=== PATIENT | male | born 1935 | race Caucasian/White ===

== ENCOUNTER 2016-05-26 14:54 | Inpatient (IN) | payer OTHER ==
[~2016-05-26] VITALS: Ht 167.6 cm; Wt 79.3 kg
[~2016-05-26 14:54] MED LIST: ADV50050 INH; ALBU2.5V3 NEB; ALBU8.5H3 INH; ALEN70TA30 PO; AMLO5TAB4 PO; ASPI-664 PO; CLOP75TA4 PO; FER325 PO; FLUT16SP24 NASAL; FURO40TA4 PO; GABA300C16 PO; GUAI1TBM PO; HYD25 PO; METH-70 PO; MONT10TA24 PO; MULT-552 PO; ONDA4TAB95 PO; OXYC-183 PO; PANT40TA4 PO; SMV40T PO; TIOT18CA IH; TURM500C8 PO; UBID100C24 PO; UDROBDM PO; VALS160T20 PO; [UNRECOGNIZED DRUG - CODE] PO
[2016-05-26] MEDS ORDERED: IPRATROPIUM (NEB) 0.5 MG/2.5 ML AMP NEB STA (15:09)
[2016-05-26] MEDS ORDERED: SOD CHLORIDE 0.9% 500 ML IV STA (15:09)
[2016-05-26] MEDS ORDERED: METHYLPREDNISOLONE 125 MG INJ IV STA (15:09)
[2016-05-26] MEDS ORDERED: ALBUTEROL 0.5% (NEB) 2.5 MG/0.5 ML AMP NEB STA (15:09)
[2016-05-26] MEDS ORDERED: morphine 2 MG INJ IV ONE (15:30)
[2016-05-26] MEDS ORDERED: ONDANSETRON 4 MG INJ IV ONE (15:30)
--- NOTE | 2016-05-26 15:33 | RADRPT ---
PROCEDURE: XR Chest. CLINICAL INDICATION: Shortness of breath, asthma TECHNIQUE: Single frontal view of the chest was obtained COMPARISON: 05/03/2016 FINDINGS: The heart is enlarged. The thoracic aorta is calcified. There are chronic interstitial changes throughout the lungs. There is mild pulmonary vascular conge stion. There are mild bibasilar linear atelectatic changes. There is no pleural effusion or pneumothorax. RPTAT: AA IMPRESSION: Mild cardiomegaly. Mild pulmonary vascular congestion. Chronic interstitial changes throughout the lungs. Mild bibasilar atelectatic changes. Calcified aorta consistent with atherosclerotic disease. .Roger Singh MD, MD Date Time Electronically viewed and signed by .Roger Singh MD, on 05/26/2016 15:33 .S/
--- NOTE | 2016-05-26 16:05 | ERA ---
ER Documentation Chief Complaint Date/Time DATE: 05/26/16 TIME: 16:00 Chief Complaint HPI 80-year-old male history of COPD who presents with right flank pain. The patient had a mechanical fall several days ago. He was seen in the emergency department and had a negative CT scan grade however, the patient is describing persistent right flank pain, difficulty breathing. He now has cough that is mildly productive. He denies any fevers or chills. He states this feels like his COPD. He denies any hematuria, no headache or chest pain. He denies hitting his head or neck during the fall. ROS All systems reviewed and are negative except as per history of present illness. Medications Home Meds Active Scripts Methocarbamol* (Robaxin*) 750 Mg Tablet, 750 MG PO TID, #20 TAB Prov:JEM MORRIS DO 03/09/16 Reported Medications Albuterol Sulfate* (Proair HFA*) 8.5 Gm Hfa.aer.ad, 2 PUFF INH Q4H Y for WHEEZING AND SOB, #1 INHALER 05/23/16 Ondansetron Hcl* (Ondansetron Hcl*) 4 Mg Tablet, 4 MG PO Q6H Y for NAUSEA, TAB 05/23/16 Pantoprazole* (Pantoprazole*) 40 Mg Tablet.dr, 40 MG PO DAILY, TAB 05/23/16 Guaifenesin/Dextromethorphan (Mucinex Dm ER 1,200-60 mg Tab) 1 Each Tbmp.12hr, 1 EACH PO BID, TAB 05/23/16 Ferrous Sulfate* (Ferrous Sulfate*) 325 Mg Tabec, 325 MG PO BID, TAB 05/23/16 Guaifenesin-Dextromethorphan* (Robitussin* DM) 100MG/10MG/5ML Syrup, 10 ML PO Q4H Y for COUGH, ML 05/23/16 Oxycodone Hcl-Acetaminophen* (Oxycodone Hcl-Acetaminophen*) 10-325 Mg Tablet, 1 TAB PO Q6 Y for PAIN, TAB 12/25/15 Gabapentin* (Gabapentin*) 300 Mg Capsule, 300 MG PO TID, #90 CAP 12/25/15 Albuterol Sulfate* (Albuterol Sulfate* Neb) 0.083%-3 Ml Neb, 2.5 MG NEB BID Y for WHEEZING AND SOB, EA 04/11/15 Tiotropium [place]* (Spiriva*) 18 Mcg Cap.w.dev, 1 INH IH DAILY, EA 02/02/15 Furosemide* (Furosemide*) 40 Mg Tablet, 40 MG PO DAILY, TAB ONLY TO BE TAKEN WITH POTASSIUM WITH LEG SWELL 02/02/15 Hydrochlorothiazide* (Hydrochlorothiazide*) 25 Mg Tab, 25 MG PO DAILY, TAB 02/02/15 Valsartan* (Diovan*) 160 Mg Tablet, 160 MG PO DAILY, TAB 02/02/15 Amlodipine Besylate* (Norvasc*) 5 Mg Tablet, 5 MG PO DAILY, TAB 02/02/15 Clopidogrel Bisulfate* (Clopidogrel Bisulfate*) 75 Mg Tablet, 75 MG PO DAILY, TAB 11/04/14 Montelukast Sodium* (Montelukast Sodium*) 10 Mg Tablet, 10 MG PO HS, TAB 11/04/14 Turmeric Root Extract (TURMERIC) 500 Mg Capsule, 500 MG PO DAILY 09/06/14 Ubidecarenone (Coq-10) 100 Mg Capsule, 100 MG PO DAILY 09/06/14 Simvastatin (Simvastatin) 40 Mg Tablet, 40 MG PO HS, TAB 09/06/14 Salmeterol Xinaf-Fluticasone* (Advair*) 500/50 Diskus Inhaler, 1 INH INH BID, INH 09/06/14 [place]-3 Fatty Acids (Fish Oil Concentrate) 1 Cap Capsule, 1 CAP PO DAILY 09/06/14 Multivitamins* (Once Daily*) 1 Tab Tablet, 1 TAB PO DAILY, TAB 09/06/14 Fluticasone Propionate* (Flonase* Nasal) 50 Mcg/[place] - 16 Gm [place].susp, 1 SPRAY NASAL BID, SPRAY (TO EACH NOSTRIL) 09/06/14 Aspirin (Low Dose Aspirin) 81 Mg Tablet.dr, 81 MG PO DAILY 09/06/14 Alendronate Sodium* (Fosamax*) 70 Mg Tablet, 70 MG PO ON WEDNESDAY, TAB 09/06/14 Discontinued Reported Medications Cholecalciferol* (Vitamin D3*) 1,000 Unit Tablet, 1000 UNIT PO DAILY, TAB 02/02/15 Albuterol Sulfate* (Albuterol Sulfate* HFA) 8.5 Gm Hfa.aer.ad, 2 PUFF IH Q6 Y for SHORTNESS OF BREATH, EA 09/06/14 Discontinued Scripts Oxycodone HCl/Acetaminophen (Percocet 5-325 mg Tablet) 1 Each Tablet, 1 EACH PO Q6, #14 TAB Prov:JEM MORRIS DO 03/09/16 Prednisone (Prednisone) 20 Mg Tab, 40 MG PO DAILY for 10 Days, TAB tapering dose see prescription written Prov:RICHIE SWEET 12/26/15 Levofloxacin* (Levaquin*) 500 Mg Tablet, 500 MG PO DAILY for 8 Days, TAB Prov:RICHIE SWEET 12/26/15 Allergies Allergies: Coded Allergies: No Known Drug Allergies (Verified Allergy, Unknown, 05/26/16) PMhx/Soc History of Surgery: No Anesthesia Reaction: No Hx 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 Disorder: No Hx Respiratory Disorders: Yes (Asthma, COPD) Hx Cardiac Disorders: Yes (HTN, CHF) Hx Psychiatric Problems: No Hx Miscellaneous Medical Probl: Yes (Hep B) Hx Alcohol Use: No Hx Substance Use: No Hx Tobacco Use: No FmHx Family History: No diabetes Physical Exam Vitals Vital Signs Date Time Temp Pulse Resp B/P Pulse Ox O2 Delivery O2 Flow Rate FiO2 05/26/16 19:10 103 17 105/46 95 Nasal Cannula 2.0 05/26/16 16:26 111 26 100 Nasal Cannula 4.0 05/26/16 16:20 98.2 101 20 104/55 98 Room Air 05/26/16 16:12 Nasal Cannula 2 05/26/16 16:09 98.2 129 20 104/55 98 Physical Exam General: Well developed, well nourished, uncomfortable Head: Normocephalic, atraumatic. Eyes: Pupils equally reactive, EOM intact ENT: Moist mucous membranes Neck: Supple, no lymphadenopathy Respiratory: Rhonchi bilaterally with wheezing , along ribs slight tenderness noted 5 6 and 7 on the right without crepitus or deformity Cardiovascular: RRR, no murmurs, rubs, or gallops Abdominal: Soft, no peritonitis, reproducible soft tissue tenderness to the right upper quadrant : Deferred MSK: No edema, no unilateral swelling, 5/5 strength Neurologic: Alert and oriented, moving all extremities, normal speech, no focal weakness, no cerebellar signs Skin: No rash Psych: Normal mood Result Diagram: 05/26/16 1550 05/26/16 1550 Results 24 hrs Laboratory Tests Test 05/26/16 15:50 Activated Partial Thromboplast Time 42.3Sec Alanine Aminotransferase (ALT/SGPT) 37IU/L Albumin 3.9g/dl Albumin/Globulin Ratio 0.97 Alkaline Phosphatase 66IU/L Anion Gap 19 Aspartate Amino Transf (AST/SGOT) 42IU/L Basophils # 0.110^3/ul Basophils % 0.4% Blood Morphology Comment Blood Urea Nitrogen 23mg/dl Calcium Level 9.5mg/dl Carbon Dioxide Level 21mmol/L Chloride Level 103mmol/L Creatinine 1.08mg/dl Direct Bilirubin 0.00mg/dl Eosinophils # 0.310^3/ul Eosinophils % 2.1% Globulin 4.00g/dl Glucose Level 56mg/dl Hematocrit 29.6% Hemoglobin 9.8g/dl INR International Normalized Ratio 1.03 Indirect Bilirubin 0.2mg/dl Lactic Acid Level 1.0mmol/L Lymphocytes # 3.910^3/ul Lymphocytes % 27.2% Mean Corpuscular Hemoglobin 33.2pg Mean Corpuscular Hemoglobin Concent 33.0g/dl Mean Corpuscular Volume 100.5fl Mean Platelet Volume 7.7fl Monocytes # 1.110^3/ul Monocytes % 7.9% Neutrophils # 9.010^3/ul Neutrophils % 62.4% Nucleated Red Blood Cells # 0.010^3/ul Nucleated Red Blood Cells % 0.0/100WBC Platelet Count 98570^3/UL Potassium Level 5.3mmol/L Prothrombin Time 13.5Sec Prothrombin Time Ratio 1.1 Red Blood Count 2.9410^6/ul Red Cell Distribution Width 14.8% Sodium Level 138mmol/L Total Bilirubin 0.2mg/dl Total Protein 7.9g/dl Troponin I 0.226ng/ml White Blood Count 14.410^3/ul Current Medications Medications (Trade) Dose Ordered Sig/Gregg Route PRN Reason Start Time Stop Time Status Last Admin Dose Admin Sodium Chloride (NS) 500 ml @ 500 mls/hr Q1H STAT IV 05/26/16 15:09 05/26/16 16:08 DC 05/26/16 16:12 Albuterol (Proventil 0.5% (Neb)) 7.5 mg ONCE STAT NEB 05/26/16 15:09 05/26/16 15:13 DC 05/26/16 16:26 Ipratropium [place] (Atrovent 0.02% (Neb)) 0.5 mg ONCE STAT NEB 05/26/16 15:09 05/26/16 15:13 DC 05/26/16 16:26 Methylprednisolone Sodium Succinate (Solu-Medrol) 125 mg ONCE STAT IV 05/26/16 15:09 05/26/16 15:13 DC 05/26/16 16:12 Morphine Sulfate (morphine) 4 mg ONCE ONCE IV 05/26/16 15:30 05/26/16 15:31 DC 05/26/16 16:11 Ondansetron HCl (Zofran Inj) 4 mg ONCE ONCE IV 05/26/16 15:30 05/26/16 15:31 DC 05/26/16 16:11 Sodium Chloride 2310 ml 2,310 ml BOLUS OVER 2 HOURS STAT IV* 05/26/16 16:51 05/26/16 16:53 DC 05/26/16 17:53 Ceftriaxone Sodium 50 ml @ 100 mls/hr ONCE STAT IVPB 05/26/16 16:51 05/26/16 17:20 DC 05/26/16 17:00 Azithromycin (Zithromax 500mg/ NS (Pmx)) 250 ml @ 250 mls/hr ONCE STAT IV 05/26/16 16:51 05/26/16 17:50 DC 05/26/16 17:52 IV Flush 10 ml 10 ml STK-MED ONCE .ROUTE 05/26/16 17:53 05/26/16 17:54 DC 05/26/16 18:21 Sodium Chloride (NS) 100 ml @ ud STK-MED ONCE .ROUTE 05/26/16 17:53 05/26/16 17:54 DC 05/26/16 18:21 Iohexol (Omnipaque 300mg/ ml) 150 ml STK-MED ONCE .ROUTE 05/26/16 17:53 05/26/16 17:54 DC 05/26/16 18:21 Aspirin (Aspirin) 162 mg ONCE ONCE PO 05/26/16 19:30 05/26/16 19:31 Procedures/MDM EKG, MONITORS, & DIAGNOSTIC IMAGING: EKG: I reviewed and interpreted a 12-lead EKG. Rhythm: slight sinus tachycardia Ectopy: None Intervals: Left bundle branch block, old ST segments: No elevations or depressions T waves: No contiguous inversions Chest x-ray: I reviewed and interpreted a 1 view of the chest Mediastinum: No enlargement Cardiac silhouette: No cardiomegaly Airspace: Interstitial process bilaterally consistent with likely COPD Bones: No evidence of fracture CT chest abdomen and pelvis: IMPRESSION: Acute right posterior 10th through 12th rib fractures and possible acute right ninth rib fracture. No pneumothorax or pulmonary contusion. No pleural effusion. Chronic lung changes. Prior granulomatous disease. Old right rib fractures and multiple old spine compression fractures. No other definite acute fractures. RPTAT: HLBE LAB INTERPRETATION: Leukocytosis, anemia, troponin elevation MEDICAL DECISION MAKING: The patient had a mechanical fall. He has a right rib contusion. He had negative CT imaging with contrast 3 days ago. However, the patient has persistent pain and now shortness of breath. He has tenderness of the right upper quadrant of the abdomen. His shortness of breath is more likely related to COPD with exacerbation given his wheezing and history of COPD. He does have hypoxia and significant rhonchi on exam. I believe he would benefit from breathing treatments, steroids and likely antibiotics and inpatient hospitalization. There is some concern for possible superimposed pneumonia given that the patient likely is splinting secondary to rib contusions. The patient is also on Plavix. He is at risk for delayed bleed. Given the patient' s abdominal tenderness I cannot rule out liver injury. I believe a CT of the chest abdomen and pelvis would be reasonable to rule out blunt traumatic injury. I realize that the patient did have a CT with IV contrast several days ago however the patient is at significant risk for delayed bleed and appears to be significantly uncomfortable. I believe the benefits outweigh the risks of repeat contrast load at this time. Gentle fluid bolus will be provided. ER COURSE: The patient was given a breathing treatment, steroids. The patient had leukocytosis and tachycardia consistent with Sirs. No evidence of pneumonia but with COPD exacerbation the patient was given antibiotics. Lactic acid is normal. The patient received fluid resuscitation in the form of 30 cc/kg. Again, the patient does not have an infectious source. This is consistent with COPD with exacerbation not pneumonia. This is not consistent with sepsis. The patient has a slight troponin elevation likely related to demand ischemia. The patient's CT shows evidence of multiple rib fractures. The patient is high risk for pneumonia given his age. Inpatient hospitalization would be appropriate. Aspirin provided. Pain well controlled. Heart rate improved. I kept the patient and/or family informed of laboratory and diagnostic imaging results throughout the emergency room course. DISPOSITION PLAN: Telemetry admission for management of non-ST elevation myocardial infarction CONSULTATION: Accepting care team and consultations: I discussed the current laboratory data, diagnostic imaging and emergency care provided. Admitting team: Dr. Owens Admitting team indication: Insurance directed Departure Diagnosis: Primary Impression: COPD exacerbation Additional Impressions: Hypoxia Non-ST elevation myocardial infarction (NSTEMI) Multiple fractures of ribs, right side, initial encounter for closed fracture Condition: Stable BRANDY PATEL MD May 26, 2016 16:05
[2016-05-26 16:30] LABS: BASOPHIL # 0.1 10^3/ul (0.0-0.1); BASOPHILS % 0.4 % (0.0-2.0); EOSINOPHILS # 0.3 10^3/ul (0.0-0.5); EOSINOPHILS % 2.1 % (0.0-7.0); HEMATOCRIT 29.6 % (42.0-52.0); HEMOGLOBIN 9.8 g/dl (14.0-18.0); LYMPHOCYTES # 3.9 10^3/ul (0.8-2.9); LYMPHOCYTES % 27.2 % (15.0-51.0); MEAN CORPUSCULAR HEMOGLOBIN 33.2 pg (29.0-33.0); MEAN CORPUSCULAR VOLUME 100.5 fl (82.0-101.0); MEAN PLATELET VOLUME 7.7 fl (7.4-10.4); MONOCYTE # 1.1 10^3/ul (0.3-0.9); MONOCYTES % 7.9 % (0.0-11.0); NEUTROPHILS % 62.4 % (39.0-77.0); PLATELET COUNT 288 10^3/UL (140-440); RED BLOOD COUNT 2.94 10^6/ul (4.70-6.10); RED CELL DISTRIBUTION WIDTH 14.8 % (11.5-14.5); UNCORRECTED WBC 14.4 10^3/ul (4.8-10.8); WHITE BLOOD COUNT 14.4 10^3/ul (4.8-10.8)
[2016-05-26 16:34] LABS: INR 1.03; PROTIME 13.5 Sec (12.2-14.2); PT RATIO 1.1
[2016-05-26 16:35] LABS: ALBUMIN 3.9 g/dl (3.3-4.9); PARTIAL THROMBOPLASTIN TIME 42.3 Sec (25.0-35.0)
[2016-05-26 16:37] LABS: CONDITION 1; CREATININE 1.08 mg/dl (0.61-1.24); LH ANALYZER COMMENTS 1
[2016-05-26 16:38] LABS: ALBUMIN/GLOBULIN RATIO 0.97; BILIRUBIN,INDIRECT 0.2 mg/dl (0-1.1); BILIRUBIN,TOTAL 0.2 mg/dl (0.2-1.3); TOTAL PROTEIN 7.9 g/dl (6.1-8.1)
[2016-05-26 16:39] LABS: CALCIUM 9.5 mg/dl (8.4-10.2)
[2016-05-26 16:50] LABS: POTASSIUM 5.3 mmol/L (3.5-5.1); TROPONIN-I 0.226 ng/ml (0.00-0.12)
[2016-05-26] MEDS ORDERED: AZITHROMYCIN 500MG/NS (PMX) 250 ML IV STA (16:51)
[2016-05-26] MEDS ORDERED: SODIUM CHLORIDE 0.9% 1L BAG IV* STA (16:51)
[2016-05-26] MEDS ORDERED: CEFTRIAXONE 1 GM/50 ML (PMX) 50 ML IVPB STA (16:51)
[2016-05-26] MEDS ORDERED: SOD CHLORIDE 0.9% 100 ML ONE (17:53)
[2016-05-26] MEDS ORDERED: IOHEXOL 300MG/ML 150 ML BTL ONE (17:53)
--- NOTE | 2016-05-26 18:52 | RADRPT ---
PROCEDURE: CT of the chest, abdomen, and pelvis with contrast CLINICAL INDICATION: Trauma TECHNIQUE: Spiral CT images through the chest, abdomen and pelvis without the administration of or al and during administration of 100 cc of Isovue 300 contrast material. Multiplanar reconstructions. The total exam CTDI equals 12.1 mGy and the total exam DLP equals 829.04 mGy-cm. COMPARISON: 04/11/2015 FINDINGS: CT chest: Again seen are chronic peripheral fibrotic changes and bilateral bronchiectasis, most antwan re at the lung bases. No pneumothorax or pleural effusion is seen. Aortic and coronary artery calci fication is seen. Multiple sub centimeter hilar and mediastinal nodes are seen. There are also lakes[place] cified hilar nodes bilaterally. There is no CT evidence for aortic injury. CT abdomen and pelvis: The aorta is slightly ectatic and tortuous. Aortic vascular calcifications are present. Innumerable calcified hepatic and splenic granulomas are seen. The gallbladder is distended. The a drenals and kidneys are unremarkable appearance. The pancreas is atrophic. The appendix is normal in appearance. The prostate is slightly enlarged. The bladder is unremarkable in appearance. Smal l bilateral renal cortical cysts. No adenopathy or ascites is seen. There is no evidence for bowel obstruction, free air, or abscess. There is mild degenerative change of the spine. There are degener ative changes of the shoulders and hips. There are fractures of the right posterior 10th through 12 th ribs and possibly also the right ninth rib. Old fractures of multiple upper right posterior ribs are seen. Multiple thoracic and lumbar compression fractures are seen. Cement from prior vertebro plasty is seen at T6, T11, and T12. The compression fractures do not appear significantly changed c ompared with prior studies from 05/23/[address] from 04/11/2015. IMPRESSION: Acute right posterior 10th through 12th rib fractures and possible acute right ninth rib fracture. No pneumothorax or pulmonary contusion. No pleural effusion. Chronic lung changes. Prior granulom atous disease. Old right rib fractures and multiple old spine compression fractures. No other defi nite acute fractures. RPTAT: HLBE Mini Hart, Physician Date Time Electronically viewed and signed by Mini Hart, Physician on 05/26/2016 18:51 LE/
[2016-05-26] MEDS ORDERED: ONDANSETRON 4 MG INJ IV PRN (19:30)
[2016-05-26] MEDS ORDERED: ACETAMINOPHEN 325 MG TAB PO PRN ×2 (19:30→21:30)
[2016-05-26] MEDS ORDERED: ASPIRIN 81 MG TAB PO ONE (19:30)
[2016-05-26 20:30] VITALS: TEMP 99.4
[2016-05-26] MEDS ORDERED: OXYCODONE/ACETAMINOPHEN (10/325) TAB PO PRN (21:30)
[2016-05-26] MEDS: ALBUTEROL/IPRATROPIUM (NEB) 3 ML AMP HHN SCH (21:30)
[2016-05-26] MEDS ORDERED: morphine 4 MG/ML VIAL IV PRN (21:30)
[2016-05-26] MEDS ORDERED: METHYLPREDNISOLONE (10 MG/ML) IV SYG IV SCH (21:30)
[2016-05-26] MEDS ORDERED: METHYLPREDNISOLONE 125 MG INJ IV SCH (22:00)
[2016-05-27] VITALS (9 sets, daily range): BP systolic 97–123; BP diastolic 51–57; PULSE 58–91; RESP 18–20; Ht 167.6 cm; Wt 79.3 kg
--- NOTE | 2016-05-27 00:29 | QN ---
Documentation Comment H&P dict a/p 1. cards: elevated troponin, appears to be ruling in for nstemi, start lovenox, cont plavix and asa, begin metop, hold losartan in light of relative hypotension cont statin 2. pulm: known copd, cont steroids and nebs 3. ALLEY ARITA MD May 27, 2016 00:29
[2016-05-27] MEDS: METOPROLOL 25 MG TAB PO SCH ×2 (00:30→09:23)
[2016-05-27] MEDS ORDERED: ATORVASTATIN 20 MG TAB PO SCH ×2 (00:30→21:00)
[2016-05-27] MEDS ORDERED: ENOXAPARIN 100 MG/ML SYG SC SCH (00:30)
[2016-05-27] MEDS: ATORVASTATIN 80 MG TAB PO SCH ×2 (01:13→20:54)
[2016-05-27] MEDS: ALBUTEROL/IPRATROPIUM (NEB) 3 ML AMP HHN SCH ×5 (02:33→20:52)
--- NOTE | 2016-05-27 03:14 | HP ---
DATE OF ADMISSION: 05/26/2016 CHIEF COMPLAINT: Generalized weakness. HISTORY OF PRESENT ILLNESS: Mr. Roach presents to the emergency room at [facility] with gen eralized weakness. He states that occurred to him approximately 3 o'clock this afternoon. He state s that this is somewhat came out of nowhere without any preceding warning and then he became general ly weak and unable to stand or walk and felt unable to get down the stairs or walking out to the car and was brought here to the emergency room. He denied, at that time, any chest pain, pressure, dis comfort, any shortness of breath, sweating. He did have coughing, but this has been a chronic probl em for him. PAST MEDICAL HISTORY: Significant for COPD, hypertension, hyperlipidemia. 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 MEDICATIONS: As an outpatient include 1. Albuterol. 2. Robaxin. 3. Spiriva. 4. Plavix. 5. Iron sulfate. 6. Norvasc. 7. Fish oil. 8. Zocor. 9. Lipitor. 10. Aspirin. 11. Neurontin. 12. Percocet 13. Lasix. 14. Hydrochlorothiazide. 15. Cough medicine. 16. Singulair. 17. Advair. 18. Flonase. 19. Protonix. 20. Multivitamins 21. Fosamax. ALLERGIES: NO KNOWN DRUG ALLERGIES. SOCIAL HISTORY: The patient lives at home in [facility] with his and stepdaughter. He is independent of activities of daily living. He does occasionally use a cane for ambulation. Romeo es tobacco, alcohol, or illicit drug use. FAMILY HISTORY: Noncontributory. REVIEW OF SYSTEMS: Five systems were reviewed and found not to be revealing. PHYSICAL EXAMINATION: VITAL SIGNS: Blood pressure is 102/50, pulse rate 90, respirations 13, temperature is 99.4, saturat ing 95% on 2 liters nasal cannula. GENERAL: Pleasant elderly man in no acute distress. Alert and oriented x3. HEENT: Normocephalic, atraumatic without evident scleral icterus, perioral cyanosis. Mucous membra [place] are moist. NECK: Soft and supple without masses. No evidence of jugular venous distention or carotid bruits. CHEST: Clear to auscultation and percussion bilaterally. HEART: Regular rate and rhythm, S1-S2, no added sounds. ABDOMEN: Soft, nontender, nondistended without palpable hepatosplenomegaly. EXTREMITIES: Without clubbing, cyanosis, or edema. SKIN: Without rashes. NEUROLOGIC: Grossly intact. LABORATORY STUDIES: Reveal hemoglobin 9.8 grams/dL, white count of 14,400, platelets of 288,000. I NR is 1.1. Sodium is 138, potassium 5.3, chloride 103, bicarbonate 21, BUN 23, creatinine 1.08, glu cose 56. Liver function tests were unremarkable. Troponin is 0.226. This repeated to a value of 1 3.3. EKG reveals sinus rhythm with left bundle branch block. It should be noted that on presentati on EKG, the patient did have a T-wave inversion in leads II, III, aVF, V4, V5, and V6 which was not present on the EKG in February of this year and has resolved by followup EKG performed approximatel y 6 hours later. ASSESSMENT AND PLAN: 1. Cardiac: The patient with non-ST segment elevation myocardial infarction manifest as generalize d weakness and elevated troponin. Begin Lovenox and metoprolol. Continue Lipitor. We will obtain cardiology evaluation. The patient is a known patient of Dr. Pickett. Start Lovenox. 2. Pulmonary: The patient with chronic obstructive pulmonary disease, mild coarse breath sounds; h owever, he appears to be respiratory fairly well compensated at this point. Begin prednisone. Cont inue nebulizers. 3. Prophylaxis with Lovenox. Dictated By: ALLEY ARITA MD RER/NTS Conf#: [id number] DID#: [id number]
[2016-05-27] MEDS ORDERED: PANTOPRAZOLE (EC) 40 MG TAB PO SCH (06:00)
[2016-05-27] MEDS ORDERED: GUAIFENESIN PO SCH (09:00)
[2016-05-27] MEDS ORDERED: MULTIVITAMINS THERAPEUTIC TAB PO SCH (09:00)
[2016-05-27] MEDS ORDERED: AMLODIPINE 5 MG TAB PO SCH (09:00)
[2016-05-27] MEDS: FLUTICASONE 0.05% 16 GM NAS SPRAY NASAL SCH ×2 (09:00→20:46)
[2016-05-27] MEDS ORDERED: DEXTROMETHORPHAN PO SCH (09:00)
[2016-05-27] MEDS ORDERED: AZITHROMYCIN 250 MG TAB PO SCH (09:00)
[2016-05-27] MEDS ORDERED: OMEGA PO SCH (09:00)
[2016-05-27] MEDS ORDERED: [UNRECOGNIZED DRUG - OTHER] PO SCH (09:00)
[2016-05-27] MEDS ORDERED: predniSONE 20 MG TAB PO SCH (09:00)
[2016-05-27] MEDS ORDERED: NON-FORMULARY/PATIENT OWN MED (Ubidecarenone (Coq-10) 100 MG) PO SCH (09:00)
[2016-05-27] MEDS ORDERED: VALSARTAN 160 MG TAB PO SCH (09:00)
[2016-05-27] MEDS: SALMETEROL/FLUTICASONE 500/50 INHA INH SCH ×2 (09:00→20:46)
[2016-05-27] MEDS ORDERED: ENOXAPARIN 80 MG/0.8 ML SYG SC SCH (09:00)
[2016-05-27] MEDS: GABAPENTIN 300 MG CAP PO SCH ×3 (09:22→20:46)
[2016-05-27] MEDS: ASPIRIN (EC) 81 MG TAB PO SCH (09:22)
[2016-05-27] MEDS: FERROUS SULFATE (EC) 325 MG TAB PO SCH ×2 (09:22→20:47)
[2016-05-27] MEDS: CLOPIDOGREL 75 MG TAB PO SCH (09:22)
[2016-05-27] MEDS: GUAIFENESIN/DM (SR) TAB PO SCH ×2 (09:27→20:47)
[2016-05-27] MEDS: FISH OIL 1,000 MG CAP PO SCH (09:27)
--- NOTE | 2016-05-27 12:32 | RADRPT ---
Echocardiogram Report Patient Name: RENETTA WALSH Gender: Male Date: 1935 Study Date: 27-May-2016 Staple Side Laster: Carolyn Tay [facility] Location: [id number] Ref. Physician: ALLEY ARITA Quality: Technically Difficult Study Procedures: Transthoracic echocardiogram with complete 2D, M-Mode, and doppler examination. Indications: Chest Pain. 2D/M Mode Doppler Measurement Value Normal Ranges Measurement Value Normal Ranges LVIDd 2D 5.6 3.5 - 5.6 cm AV Mean Seth 1.4 m/sec LVIDs 2D 3.4 2.1 - 4.1 cm AV Mean PG 9.0 mmHg FS 2D 39.0 % AV Peak Seth 2.0 m/sec LVPWd 2D 0.8 0.6 - 1.1 cm AV Peak PG 17.0 mmHg IVSd 2D 1.0 0.6 - 1.1 cm AV VTI 45.1 cm IVS/LVPW 2D 1.3 LVOT Mean Seth 0.6 m/sec AoR Diam 2D 2.1 2.0 - 3.7 cm LVOT Mean PG 2.0 mmHg LA/Ao 2D 2 0 - 1 LVOT Peak Seth 0.9 m/sec EDV 2D 179.0 cm3 LVOT Peak PG 3.0 mmHg ESV 2D 40.7 cm3 LVOT VTI 20.4 cm LA Dimen 2D 4.6 2.3 - 4.0 cm TR Peak Seth 3.4 m/sec TR Peak PG 47.0 mmHg RVSP 62.0 mmHg Findings Left Ventricle: Normal left ventricular cavity size. Normal left ventricular wall thickness. Moderate left ventricular systolic dysfunction. Apical, kelechi-apical, infero-apical dyskinesis. Ejection fraction is visually estimated at 35 %. Abnormal Diastolic Function. Right Ventricle: Normal right ventricular size. Normal right ventricular systolic function. Left Atrium: There is moderate enlargement of left atrium. Right Atrium: The right atrium is normal in size. Mitral Valve: Mitral valve leaflets appear mildly thickened. Moderate mitral annular calcification. Mild to moderate mitral valve regurgitation. Aortic Valve: Aortic Valve Bio Prosthesis. No hemodynamically significant aortic stenosis by doppler. Aortic valve Max velocity 2.05 m/sec. Max PG 17.00 mmHg. Mean PG 9.00 mmHg. No aortic regurgitation. Tricuspid Valve: Normal appearance of the tricuspid valve. Estimated peak PA systolic pressure 62 mmHg. There is mild tricuspid regurgitation. Pulmonic Valve: Normal pulmonic valve appearance. Pericardium: Normal pericardium with no significant pericardial effusion. Aorta: Normal aortic root. IVC: Dilated IVC without respiratory collapse consistent with elevated right atrial pressure. Pulmonary Artery: Normal pulmonary artery size. Conclusions Normal left ventricular cavity size. Normal left ventricular wall thickness. Moderate left ventricular systolic dysfunction. Apical, kelechi-apical, infero-apical dyskinesis. Ejection fraction is visually estimated at 35 %. Abnormal Diastolic Function. Normal right ventricular size. Normal right ventricular systolic function. There is moderate enlargement of left atrium. The right atrium is normal in size. Mild to moderate mitral valve regurgitation. Aortic Valve Bio Prosthesis. No hemodynamically significant aortic stenosis by doppler. No aortic regurgitation. Estimated peak PA systolic pressure 62 mmHg. There is mild tricuspid regurgitation. Normal pericardium with no significant pericardial effusion. Electronically Signed By: Calos Peralta 27-May-2016 12:31:46 -0800 Patient Name: RENETTA WALSH Study Date: 27-May-2016 [id number]
--- NOTE | 2016-05-27 13:49 | CONS ---
Date/Time of Note Date/Time of Note DATE: 05/27/16 TIME: 13:39 Assessment/Plan Assessment/Plan Additional Assessment/Plan Non-ST elevation OR Cardiomyopathy ejection fraction 35% Mechanical fall with rib fractures Mild to moderate coronary artery disease based on catheterization in October 2014. Aortic stenosis, status post transcatheter aortic valve replacement in January 2015. Chronic obstructive pulmonary disease on home oxygen. -Our patient with troponin peak of 13 and currently downtrending. He denies any chest pain and shortness of breath is at baseline. Patient with left bundle branch block on ECG which was seen as well in April 2015. On review of echocardiogram, there is a significant decrease in ejection fraction with apical dyskinesis. Differential includes obstructive coronary artery disease versus stress-induced cardiomyopathy. Discussed with patient and significant other regarding findings. Only way of confirming the etiology of his elevated troponin is coronary angiogram. The benefits and risks were discussed in detail and they agree to proceed. Would continue antiplatelet therapy, statin therapy, anticoagulation, blood pressure has been on the lower and and withhold antihypertensives at the current time. Consultation Date/Type/Reason Admit Date/Time May 26, 2016 at 19:17 Type of Consultation: cv Reason for Consultation Elevated troponin Hx of Present Illness This is an 80-year-old male with extensive past medical history including COPD on home oxygen, aortic stenosis with history of TAVR who had a recent mechanical fall approximately 4 days ago. Patient several trauma to the right side including rib fractures. Over the past few days, pain continued to worsen as well as shortness of breath and pain with inspiration. Last night, pain became very severe and for that he came to the emergency room for further evaluation and care. He denies any chest pain, dizziness or lightheadedness. He does have chronic shortness of breath but has noticed increase in phlegm production. He denies any chest pain but does complain of right flank and back pain and right leg pain with the trauma was. 12 point review of systems was performed with all pertinent positives and negatives mentioned above and all else is negative Past Medical History Mild to moderate coronary artery disease based on catheterization in October 2014. Aortic stenosis, status post transcatheter aortic valve replacement in January 2015. Cardiomyopathy Chronic obstructive pulmonary disease on home oxygen. Past Surgical History Past Surgical Hx: other (tavr) Family History Significant Family History: no pertinent family hx Social History Smoking Status: Never smoker Other Social History Lives at home with significant other Exam/Review of Systems Vital Signs Vitals Vital Signs Date Time Temp Pulse Resp B/P Pulse Ox O2 Delivery O2 Flow Rate FiO2 05/27/16 12:41 63 05/27/16 11:31 2.0 05/27/16 04:00 97.4 19 113/56 98 05/27/16 02:30 Nasal Cannula Intake and Output 05/26/16 05/26/16 05/27/16 15:00 23:00 07:00 Intake Total 250 ml 2310 ml Output Total 350 ml Balance 250 ml 1960 ml Exam No apparent distress Constitutional: alert, frail, oriented Head: normocephalic Neck: supple Respiratory: other (course breath sounds bilaterally with scattered rhonchi, no wheezing) Cardiovascular: other (S1-S2 heard), regular rate and rhythm Gastrointestinal: bowel sounds, non-tender, other (no guarding), soft Extremities: edema, other (right lower extremity bandage, multiple areas of ecchymosis upper extremities) Results Result Diagram: 05/26/16 1550 05/26/16 1550 Results 24 hrs Laboratory Tests Test 05/26/16 15:50 05/26/16 19:23 05/26/16 21:10 05/26/16 23:30 Activated Partial Thromboplast Time 42.3 H Alanine Aminotransferase (ALT/SGPT) 37 Albumin 3.9 Albumin/Globulin Ratio 0.97 Alkaline Phosphatase 66 Anion Gap 19 H Aspartate Amino Transf (AST/SGOT) 42 Basophils # 0.1 Basophils % 0.4 Blood Morphology Comment Blood Urea Nitrogen 23 H Calcium Level 9.5 Carbon Dioxide Level 21 Chloride Level 103 Creatinine 1.08 Direct Bilirubin 0.00 Eosinophils # 0.3 Eosinophils % 2.1 Globulin 4.00 H Glucose Level 56 L Hematocrit 29.6 L Hemoglobin 9.8 L INR International Normalized Ratio 1.03 Indirect Bilirubin 0.2 Lactic Acid Level 1.0 0.6 0.6 Lymphocytes # 3.9 H Lymphocytes % 27.2 Mean Corpuscular Hemoglobin 33.2 H Mean Corpuscular Hemoglobin Concent 33.0 Mean Corpuscular Volume 100.5 Mean Platelet Volume 7.7 Monocytes # 1.1 H Monocytes % 7.9 Neutrophils # 9.0 H Neutrophils % 62.4 Nucleated Red Blood Cells # 0.0 Nucleated Red Blood Cells % 0.0 Platelet Count 288 Potassium Level 5.3 H Prothrombin Time 13.5 Prothrombin Time Ratio 1.1 Red Blood Count 2.94 L Red Cell Distribution Width 14.8 H Sodium Level 138 Total Bilirubin 0.2 Total Protein 7.9 Troponin I 0.226 *H 13.300 *H White Blood Count 14.4 #H Bedside Glucose 88 Test 05/27/16 09:55 Troponin I 11.500 *H Medications Medications Current Medications Amlodipine Besylate (Norvasc) 5 mg DAILY PO Last administered on 05/27/16at 09: 23; Admin Dose 5 MG; Start 05/27/16 at 09:00 Aspirin (Halfprin) 81 mg DAILY PO Last administered on 05/27/16 09:22; Admin Dose 81 MG; Start 05/27/16 at 09:00 Clopidogrel Bisulfate (plaVIX) 75 mg DAILY PO Last administered on 05/27/16 09:22; Admin Dose 75 MG; Start 05/27/16 at 09:00 Ferrous Sulfate (Ferrous Sulfate (Ec)) 325 mg BID PO Last administered on 05/27at 09:22; Admin Dose 325 MG; Start 05/27/16 at 09:00 Fluticasone Propionate (Flonase 0.05% Nasal) 1 spray BID NASAL ; Start at 09:00 Gabapentin (Neurontin) 300 mg TID PO Last administered on 05/27/16at 09:22; Admin Dose 300 MG; Start 05/27/16 at 09:00 Guaifenesin/ Dextromethorphan (Robitussin Dm Liquid Cup) 10 ml Q4H PRN PO COUGH ; Start 05/26/16 at 21:30 Montelukast Sodium (Singulair) 10 mg HS PO ; Start 05/27/16 at 21:00 Multivitamins Therapeutic (Theragran) 1 tab DAILY PO Last administered on 05/27at 09:21; Admin Dose 1 TAB; Start 05/27/16 at 09:00 Oxycodone/ Acetaminophen (Endocet (10/ 325)) 1 tab Q6 PRN PO PAIN; Start 05/26 at 21:30 Pantoprazole (Protonix Tab) 40 mg DAILY@06 PO Last administered on 05/27/16at 07:13; Admin Dose 40 MG; Start 05/27/16 at 06:00 Salmeterol Xinafoate/ Fluticasone (Advair 500/50 Diskus) 1 inh BID INH ; Start 05/27/16 at 09:00 Acetaminophen (Tylenol Tab) 650 mg Q4H PRN PO pain/fever; Start 05/26/16 at 21 :30 Ondansetron HCl (Zofran Inj) 4 mg Q4H PRN IV nausea; Start 05/26/16 at 21:30 Morphine Sulfate (morphine) 4 mg Q4H PRN IV pain not relieved percocet; Start 05/26/16 at 21:30 Guaifenesin/ Dextromethorphan (Mucinex Dm) 1 tab BID PO Last administered on 09:27; Admin Dose 1 TAB; Start 05/27/16 at 09:00 Fish Oil (Fish Oil) 1,000 mg DAILY PO Last administered on 05/27/16 09:27; Admin Dose 1,000 MG; Start 05/27/16 at 09:00 Metoprolol Tartrate (Lopressor) 25 mg BID PO Last administered on 05/27/16at 09 :23; Admin Dose 25 MG; Start 05/27/16 at 00:30 Prednisone (Prednisone) 80 mg DAILY PO Last administered on 05/27/16at 09:22; Admin Dose 80 MG; Start 05/27/16 at 09:00 Enoxaparin Sodium (Lovenox) 75 mg Q12 SC Last administered on 05/27/16 09:26 ; Admin Dose 75 MG; Start 05/27/16 at 09:00 Atorvastatin Calcium (Lipitor) 80 mg DAILY@21 PO Last administered on at 01:13; Admin Dose 80 MG; Start 05/27/16 at 00:00 Procedures Procedures ECG demonstrates sinus rhythm with left bundle branch block Calos Peralta DO May 27, 2016 13:49
--- NOTE | 2016-05-27 14:05 | PN ---
Date/Time of Note Date/Time of Note DATE: 05/27/16 TIME: 13:52 Assessment/Plan VTE Prophylaxis VTE Prophylaxis Intervention: LMWH Lines/Catheters IV Catheter Type (from Nrs): Saline Lock Assessment/Plan Assessment/Plan 80 yo male with: 1. NSTEMI, patient s/p TAVR and with cardiomyopathy with troponin picked up at 13, per previous angio coronary artery disease, nonobstructive Echo with EF down to 30% and ? Takotsubo Repeat Angiogram today ON 2L NC and stable 2. COPD, O2 dependent Remains stable, decerese Prednisone to 60 daily and tapering Nebs rx , Advair and Spiriva 3. S/p accidental fall last weekend and with RLE Hematoma and RUE ecchymosis and right rib fractures Pain control with Percocet prn and Tramadol prn Monitor hematomas and h/h while on Lovenox 4. Chronic back pain with acute component now with rib fractures: Percocet and tramadol prn 5. Hypertension: Currently low BP so holding Diovan 6. Congestive heart failure, systolic dysfunction EF 30 % on echo today. Patient compensated on exam, monitor closely 7. Temporal arteritis. The patient is already on prednisone. 8. Previous history of transient ischemic attack. Patient's mental status is stable and at baseline. Prophylaxis: On Lovenox already with NSTEMI, PPI for GI ppx while on steroids especially Disposition: Angiogram today Subjective 24 Hr Interval Summary Free Text/Dictation Patient remains stable Trop up to 13 and awaiting Angio today NPO X meds Exam/Review of Systems Vital Signs Vitals Vital Signs Date Time Temp Pulse Resp B/P Pulse Ox O2 Delivery O2 Flow Rate FiO2 05/27/16 12:41 63 05/27/16 11:31 2.0 05/27/16 04:00 97.4 19 113/56 98 05/27/16 02:30 Nasal Cannula Intake and Output 05/26/16 05/26/16 05/27/16 15:00 23:00 07:00 Intake Total 250 ml 2310 ml Output Total 350 ml Balance 250 ml 1960 ml Exam Constitutional: alert, oriented, well developed Respiratory: diminished breath sounds (bases chronic and at baseline), normal air movement Cardiovascular: nl pulses, regular rate and rhythm Gastrointestinal: non-tender, soft Musculoskeletal: other (RLE with CLARIBEL bandage over hematoma ) Extremities: normal pulses 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: EARTH MOVER II-XII intact, nl mental status, nl speech Skin: ecchymosis (multiple throughout ) Results Result Diagram: 05/26/16 1550 05/26/16 1550 Results 24 hrs Laboratory Tests Test 05/26/16 15:50 05/26/16 19:23 05/26/16 21:10 05/26/16 23:30 Activated Partial Thromboplast Time 42.3 H Alanine Aminotransferase (ALT/SGPT) 37 Albumin 3.9 Albumin/Globulin Ratio 0.97 Alkaline Phosphatase 66 Anion Gap 19 H Aspartate Amino Transf (AST/SGOT) 42 Basophils # 0.1 Basophils % 0.4 Blood Morphology Comment Blood Urea Nitrogen 23 H Calcium Level 9.5 Carbon Dioxide Level 21 Chloride Level 103 Creatinine 1.08 Direct Bilirubin 0.00 Eosinophils # 0.3 Eosinophils % 2.1 Globulin 4.00 H Glucose Level 56 L Hematocrit 29.6 L Hemoglobin 9.8 L INR International Normalized Ratio 1.03 Indirect Bilirubin 0.2 Lactic Acid Level 1.0 0.6 0.6 Lymphocytes # 3.9 H Lymphocytes % 27.2 Mean Corpuscular Hemoglobin 33.2 H Mean Corpuscular Hemoglobin Concent 33.0 Mean Corpuscular Volume 100.5 Mean Platelet Volume 7.7 Monocytes # 1.1 H Monocytes % 7.9 Neutrophils # 9.0 H Neutrophils % 62.4 Nucleated Red Blood Cells # 0.0 Nucleated Red Blood Cells % 0.0 Platelet Count 288 Potassium Level 5.3 H Prothrombin Time 13.5 Prothrombin Time Ratio 1.1 Red Blood Count 2.94 L Red Cell Distribution Width 14.8 H Sodium Level 138 Total Bilirubin 0.2 Total Protein 7.9 Troponin I 0.226 *H 13.300 *H White Blood Count 14.4 #H Bedside Glucose 88 Test 05/27/16 09:55 Troponin I 11.500 *H Medications Medications Current Medications Aspirin (Halfprin) 81 mg DAILY PO Last administered on 05/27/16at 09:22; Admin Dose 81 MG; Start 05/27/16 at 09:00 Clopidogrel Bisulfate (plaVIX) 75 mg DAILY PO Last administered on 05/27/16 09:22; Admin Dose 75 MG; Start 05/27/16 at 09:00 Ferrous Sulfate (Ferrous Sulfate (Ec)) 325 mg BID PO Last administered on 05/27at 09:22; Admin Dose 325 MG; Start 05/27/16 at 09:00 Fluticasone Propionate (Flonase 0.05% Nasal) 1 spray BID NASAL ; Start at 09:00 Gabapentin (Neurontin) 300 mg TID PO Last administered on 05/27/16at 13:40; Admin Dose 300 MG; Start 05/27/16 at 09:00 Guaifenesin/ Dextromethorphan (Robitussin Dm Liquid Cup) 10 ml Q4H PRN PO COUGH ; Start 05/26/16 at 21:30 Montelukast Sodium (Singulair) 10 mg HS PO ; Start 05/27/16 at 21:00 Multivitamins Therapeutic (Theragran) 1 tab DAILY PO Last administered on 05/27at 09:21; Admin Dose 1 TAB; Start 05/27/16 at 09:00 Oxycodone/ Acetaminophen (Endocet (10/ 325)) 1 tab Q6 PRN PO PAIN; Start 05/26 at 21:30 Pantoprazole (Protonix Tab) 40 mg DAILY@06 PO Last administered on 05/27/16at 07:13; Admin Dose 40 MG; Start 05/27/16 at 06:00 Salmeterol Xinafoate/ Fluticasone (Advair 500/50 Diskus) 1 inh BID INH ; Start 05/27/16 at 09:00 Acetaminophen (Tylenol Tab) 650 mg Q4H PRN PO pain/fever; Start 05/26/16 at 21 :30 Ondansetron HCl (Zofran Inj) 4 mg Q4H PRN IV nausea; Start 05/26/16 at 21:30 Guaifenesin/ Dextromethorphan (Mucinex Dm) 1 tab BID PO Last administered on at 09:27; Admin Dose 1 TAB; Start 05/27/16 at 09:00 Fish Oil (Fish Oil) 1,000 mg DAILY PO Last administered on 05/27/16at 09:27; Admin Dose 1,000 MG; Start 05/27/16 at 09:00 Enoxaparin Sodium (Lovenox) 75 mg Q12 SC Last administered on 05/27/16at 09:26 ; Admin Dose 75 MG; Start 05/27/16 at 09:00 Atorvastatin Calcium (Lipitor) 80 mg DAILY@21 PO Last administered on at 01:13; Admin Dose 80 MG; Start 05/27/16 at 00:00 Prednisone (Prednisone) 60 mg DAILY PO ; Start 05/28/16 at 09:00 Tramadol HCl (Ultram) 50 mg Q6H PRN PO PAIN; Start 05/27/16 at 14:00; Status RICHIE WRIGHT May 27, 2016 14:04
[2016-05-27] MEDS: traMADol 50 MG TAB PO PRN (14:34)
[2016-05-27 15:37] LABS: CREATININE 1.52 mg/dl (0.61-1.24)
[2016-05-27 15:38] LABS: CALCIUM 7.9 mg/dl (8.4-10.2)
[2016-05-27 15:39] LABS: MAGNESIUM 2.2 mg/dl (1.7-2.5)
[2016-05-27 15:52] LABS: CK-MB 67.2 ng/ml (0.0-2.4); POTASSIUM 6.4 mmol/L (3.5-5.1); TROPONIN-I 12.6 ng/ml (0.00-0.12)
[2016-05-27] MEDS ORDERED: NA BICARBONATE 8.4% 50 ML SYG IV STA (16:58)
[2016-05-27] MEDS ORDERED: DEXTROSE 50% 50 ML SYRINGE IV ONE (17:00)
[2016-05-27] MEDS ORDERED: NA POLYST SULFON 15 GM/60 ML BTL PO ONE (17:00)
[2016-05-27] MEDS ORDERED: INSULIN REGULAR, HUMAN 100 UNIT/1 ML 3ML VIAL IV SCH (17:00)
--- NOTE | 2016-05-27 17:09 | EN ---
Date/Time of Note Date/Time of Note DATE: 05/27/16 TIME: 17:06 ER Progress Note Patient reassessed secondary to repeat lab studies. Blood work demonstrates acute kidney injury, hyperkalemia. Troponins have remained relatively static. Patient seen and examined, denies chest pain, shortness of breath, abdominal pain or nausea. He does tell me he is having difficulty with urination. Repeat ECG with no significant changes. Findings discussed with Dr. Bueno. Plan for treatment of hyperkalemia and acute kidney injury, given acute kidney injury, cardiac catheterization is currently on hold given the significant risks of contrast-induced nephropathy. I did contact the patient's significant other at [phone] and discussed the findings. Given patient with myocardial infarction and acute kidney injury, low threshold for transfer to the ICU. Calos Peralta DO May 27, 2016 17:09
--- NOTE | 2016-05-27 17:12 | CONS ---
Date/Time of Note Date/Time of Note DATE: 05/27/16 TIME: 17:12 Assessment/Plan Assessment/Plan Additional Assessment/Plan Patient reassessed secondary to repeat lab studies. Blood work demonstrates acute kidney injury, hyperkalemia. Troponins have remained relatively static. Patient seen and examined, denies chest pain, shortness of breath, abdominal pain or nausea. He does tell me he is having difficulty with urination. Repeat ECG with no significant changes. Findings discussed with Dr. Bueno. Plan for treatment of hyperkalemia and acute kidney injury, given acute kidney injury, cardiac catheterization is currently on hold given the significant risks of contrast-induced nephropathy. I did contact the patient's significant other at [phone] and discussed the findings. Given patient with myocardial infarction and acute kidney injury, low threshold for transfer to the ICU. Consultation Date/Type/Reason Admit Date/Time May 26, 2016 at 19:17 Initial Consult Date Type of Consultation: cv Exam/Review of Systems Vital Signs Vitals Vital Signs Date Time Temp Pulse Resp B/P Pulse Ox O2 Delivery O2 Flow Rate FiO2 05/27/16 16:13 59 05/27/16 11:31 2.0 05/27/16 09:05 20 95 Nasal Cannula 05/27/16 04:00 97.4 113/56 Intake and Output 05/26/16 05/26/16 05/27/16 14:59 22:59 06:59 Intake Total 250 ml 2310 ml Output Total 350 ml Balance 250 ml 1960 ml Results Result Diagram: 05/26/16 1550 05/27/16 1432 Results 24 hrs Laboratory Tests Test 05/26/16 19:23 05/26/16 21:10 05/26/16 23:30 05/27/16 09:55 Bedside Glucose 88 Lactic Acid Level 0.6 0.6 Troponin I 13.300 *H 11.500 *H Test 05/27/16 14:32 Anion Gap 20 H Blood Urea Nitrogen 41 #H Calcium Level 7.9 L Carbon Dioxide Level 19 L Chloride Level 104 Creatine Kinase 749 H Creatine Kinase Index 9.0 Creatinine 1.52 H Creatinine Kinase MB (Mass) 67.20 H Glucose Level 157 # Magnesium Level 2.2 Potassium Level 6.4 *H Sodium Level 137 Troponin I 12.600 *H Medications Medications Current Medications Aspirin (Halfprin) 81 mg DAILY PO Last administered on 05/27/16at 09:22; Admin Dose 81 MG; Start 05/27/16 at 09:00 Clopidogrel Bisulfate (plaVIX) 75 mg DAILY PO Last administered on 05/27/16at 09:22; Admin Dose 75 MG; Start 05/27/16 at 09:00 Ferrous Sulfate (Ferrous Sulfate (Ec)) 325 mg BID PO Last administered on 05/27at 09:22; Admin Dose 325 MG; Start 05/27/16 at 09:00 Fluticasone Propionate (Flonase 0.05% Nasal) 1 spray BID NASAL ; Start at 09:00 Gabapentin (Neurontin) 300 mg TID PO Last administered on 05/27/16at 13:40; Admin Dose 300 MG; Start 05/27/16 at 09:00 Guaifenesin/ Dextromethorphan (Robitussin Dm Liquid Cup) 10 ml Q4H PRN PO COUGH ; Start 05/26/16 at 21:30 Montelukast Sodium (Singulair) 10 mg HS PO ; Start 05/27/16 at 21:00 Multivitamins Therapeutic (Theragran) 1 tab DAILY PO Last administered on 05/27at 09:21; Admin Dose 1 TAB; Start 05/27/16 at 09:00 Oxycodone/ Acetaminophen (Endocet (10/ 325)) 1 tab Q6 PRN PO PAIN; Start 05/26 at 21:30 Pantoprazole (Protonix Tab) 40 mg DAILY@06 PO Last administered on 05/27/16at 07:13; Admin Dose 40 MG; Start 05/27/16 at 06:00 Salmeterol Xinafoate/ Fluticasone (Advair 500/50 Diskus) 1 inh BID INH ; Start 05/27/16 at 09:00 Acetaminophen (Tylenol Tab) 650 mg Q4H PRN PO pain/fever; Start 05/26/16 at 21 :30 Ondansetron HCl (Zofran Inj) 4 mg Q4H PRN IV nausea; Start 05/26/16 at 21:30 Guaifenesin/ Dextromethorphan (Mucinex Dm) 1 tab BID PO Last administered on at 09:27; Admin Dose 1 TAB; Start 05/27/16 at 09:00 Fish Oil (Fish Oil) 1,000 mg DAILY PO Last administered on 05/27/16at 09:27; Admin Dose 1,000 MG; Start 05/27/16 at 09:00 Atorvastatin Calcium (Lipitor) 80 mg DAILY@21 PO Last administered on at 01:13; Admin Dose 80 MG; Start 05/27/16 at 00:00 Prednisone (Prednisone) 60 mg DAILY PO ; Start 05/28/16 at 09:00 Tramadol HCl 50 mg 50 mg Q6H PRN PO PAIN Last administered on 05/27/16at 14:34 ; Admin Dose 50 MG; Start 05/27/16 at 14:00 Sodium Chloride (NS) 1,000 ml @ 60 mls/hr [id number] IV ; Start 05/27/16 at 17:00 ; Stop 05/29/16 at 02:19 Insulin Human Regular (Humulin R) 10 unit ONCE IV ; Start 05/27/16 at 17:00; Stop 05/27/16 at 20:00 Sodium Polystyrene Sulfonate (Kayexalate) 30 gm ONCE ONCE PO ; Start 05/27/16 at 17:00; Stop 05/27/16 at 17:01; Status UNV Sodium Polystyrene Sulfonate (Kayexalate) 30 gm ONCE ONCE PO ; Start 05/27/16 at 17:00; Stop 05/27/16 at 17:01; Status Calos Suggs DO May 27, 2016 17:12
--- NOTE | 2016-05-27 17:47 | RADRPT ---
PROCEDURE: Renal US. CLINICAL INDICATION: Acute kidney injury. TECHNIQUE: Multiple sonographic images of the kidneys and urinary bladder were obtained. The imag es were reviewed on a PACS workstation. COMPARISON: CT scan of the abdomen and pelvis dated 05/23/2016. FINDINGS: The right kidney measures 10.0 x 4.8 x 3.8 cm. The left kidney measures 11.6 x 5.8 x 4.0 cm. There is no renal mass. There is no hydronephrosis. There are possible small nonobstructing bilateral renal calculi. There is cortical thinning bilaterally measuring 0.7 cm on the right and 0.7 cm on the left. Both k idneys are hyperechoic consistent with medical renal disease. The perirenal regions are normal with no fluid collection or mass. The urinary bladder is unremarkable. IMPRESSION: 1. Possible small nonobstructing bilateral renal calculi. 2. Bilateral cortical thinning measuring 0.7 cm. 3. Bilateral hyperechoic kidneys consistent with medical renal disease. 4. No hydronephrosis. 5. Otherwise normal renal ultrasound. RPTAT: QQ .Oscar Jackson MD, Date Time Electronically viewed and signed by .Oscar Jackson MD, MD on 05/27/2016 17:46 .R/
[2016-05-27] MEDS: NA POLYST SULFON 15 GM/60 ML BTL PO SCH ×2 (17:48→20:55)
[2016-05-27] MEDS: SOD CHLORIDE 0.9% 1,000 ML IV SCH (17:51)
[2016-05-27] MEDS: INSULIN ASPART [NOVOLOG] 3 ML PEN SC SCH ×2 (18:05→20:45)
--- NOTE | 2016-05-27 18:11 | QN ---
Documentation Comment Patient's labs pre angio came back significantly abnormal with: - JOE with metabolic acidosis, significant hyperkalemia, patient had a contrast study last night, renal US stable and Arteaga catheter to be placed. treating hyperkalemia with 2 amps NaHCO3, 10 units NovoLog with 1 amp D50, Kayexalate 30 grams x 2, repeat labs at 9 pm EKG stable and VSS. Patient to stay on Telemetry for now with low threshold top transfer to ICU if needed. RICHIE SWEET May 27, 2016 18:11
[2016-05-27] MEDS ORDERED: GLUCOSE GEL 15 GRAM TUBE PO PRN ×2 (18:30)
[2016-05-27] MEDS ORDERED: GLUCAGON 1 MG INJ IM PRN (18:30)
[2016-05-27] MEDS ORDERED: DEXTROSE 50% 50 ML SYRINGE IV PRN ×2 (18:30)
[2016-05-27] MEDS ORDERED: GLUCOSE GEL 15 GRAM TUBE BUCCAL PRN (18:30)
[2016-05-27] MEDS: MONTELUKAST 10 MG TAB PO SCH (20:54)
[2016-05-27] MEDS ORDERED: NON-FORMULARY/PATIENT OWN MED (Simvastatin 40 MG) PO SCH (21:00)
[2016-05-27 22:08] LABS: POTASSIUM 5.5 mmol/L (3.5-5.1)
[2016-05-27 22:11] LABS: CREATININE 1.76 mg/dl (0.61-1.24)
[2016-05-27 22:12] LABS: CALCIUM 8.6 mg/dl (8.4-10.2)
[2016-05-28] VITALS (10 sets, daily range): BP systolic 111–132; BP diastolic 55–78; PULSE 75–99; RESP 18–20
[2016-05-28] MEDS: ALBUTEROL/IPRATROPIUM (NEB) 3 ML AMP HHN SCH ×4 (02:30→20:48)
[2016-05-28] MEDS: INSULIN ASPART [NOVOLOG] 3 ML PEN SC SCH ×4 (08:00→21:00)
[2016-05-28] MEDS: FISH OIL 1,000 MG CAP PO SCH (08:18)
[2016-05-28] MEDS: GUAIFENESIN/DM (SR) TAB PO SCH ×2 (08:18→21:55)
[2016-05-28] MEDS: FERROUS SULFATE (EC) 325 MG TAB PO SCH ×2 (08:18→21:55)
[2016-05-28] MEDS: FLUTICASONE 0.05% 16 GM NAS SPRAY NASAL SCH ×2 (08:18→21:55)
[2016-05-28] MEDS: SALMETEROL/FLUTICASONE 500/50 INHA INH SCH ×2 (08:18→21:56)
[2016-05-28] MEDS: GABAPENTIN 300 MG CAP PO SCH ×3 (08:18→21:55)
[2016-05-28] MEDS: ASPIRIN (EC) 81 MG TAB PO SCH (08:19)
[2016-05-28] MEDS: traMADol 50 MG TAB PO PRN (08:19)
[2016-05-28] MEDS: CLOPIDOGREL 75 MG TAB PO SCH (08:19)
[2016-05-28] MEDS ORDERED: predniSONE 20 MG TAB PO SCH (09:00)
--- NOTE | 2016-05-28 09:19 | RADRPT ---
Vent Rate: 62 bpm RR Interval: 0 msec [place] Interval: 204 msec QRS Duration: 170 msec QT Interval: 502 msec QTC Interval: 509 msec P-R-T [place]: 47 - 2 - 133 degrees Sinus rhythm with marked sinus arrhythmia Left bundle branch block Abnormal ECG Electronically Signed By: Andi Alaniz [id number]
[2016-05-28] MEDS: SOD CHLORIDE 0.9% 1,000 ML IV SCH (12:13)
[2016-05-28] MEDS ORDERED: LIDOCAINE 1% (MDV) 20 ML INJ SC ONE (14:30)
--- NOTE | 2016-05-28 14:53 | PN ---
Date/Time of Note Date/Time of Note DATE: 05/28/16 TIME: 14:30 Assessment/Plan VTE Prophylaxis VTE Prophylaxis Intervention: SCD's Lines/Catheters IV Catheter Type (from Nrs): Peripheral IV Urinary Cath still in place: No Assessment/Plan Assessment/Plan 80 yo male with: 1. NSTEMI, patient s/p TAVR and with cardiomyopathy with troponin picked up at 13, per previous angio coronary artery disease, nonobstructive Echo with EF down to 30% and ? Takotsubo Repeat Angiogram pending recovery of renal function ON 2L NC and stable 2. COPD, O2 dependent Remains stable, decrease Prednisone to 50 daily for tomorrow and tapering slowly Nebs rx , Advair and Spiriva 3. JOE on CKD, patient with significant electrolyte abnormality yesterday, s/p treatment of Hyperkalemia Repeat labs pending today Very difficult lab draw so PICC line ordered for blood draw 4. S/p accidental fall last weekend and with RLE Hematoma and RUE ecchymosis and right rib fractures Pain control with Percocet prn and Tramadol prn Monitor hematomas and h/h while on Lovenox 5. Chronic back pain with acute component now with rib fractures: Percocet and tramadol prn 6. Hypertension: Currently low BP so holding Diovan 6. Congestive heart failure, systolic dysfunction EF 30 % on echo today. Patient compensated on exam, monitor closely 7. Temporal arteritis. The patient is already on prednisone. 8. Previous history of transient ischemic attack. Patient's mental status is stable and at baseline. Prophylaxis: On Lovenox already with NSTEMI, PPI for GI ppx while on steroids especially Disposition: Labs pending and Angiogram when recovery of renal function Subjective 24 Hr Interval Summary Free Text/Dictation Patient doing Ok No further complaints this AM but unable to draw blood and awaiting PICC line placement for blood draw Holding off Angiogram for now Exam/Review of Systems Vital Signs Vitals Vital Signs Date Time Temp Pulse Resp B/P Pulse Ox O2 Delivery O2 Flow Rate FiO2 05/28/16 14:04 80 20 98 Nasal Cannula 2.0 05/28/16 11:32 98.0 127/78 Intake and Output 05/27/16 05/27/16 05/28/16 15:00 23:00 07:00 Intake Total 300 ml Balance 300 ml Exam Constitutional: alert, frail, oriented Respiratory: crackles/rales (chronically ), normal air movement Cardiovascular: nl pulses, regular rate and rhythm Gastrointestinal: non-tender, soft Musculoskeletal: nl extremities to inspection Extremities: normal pulses, other (no edema, clubbing or cyanosis ) 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, nl mental status, nl speech, nl strength ( generalised weakness at baseline ) Results Result Diagram: 05/26/16 1550 05/27/16 2135 Results 24 hrs Laboratory Tests Test 05/27/16 14:32 05/27/16 17:57 05/27/16 20:42 05/27/16 21:35 Anion Gap 20 H 17 H Blood Urea Nitrogen 41 #H 49 H Calcium Level 7.9 L 8.6 Carbon Dioxide Level 19 L 25 Chloride Level 104 107 Creatine Kinase 749 H Creatine Kinase Index 9.0 Creatinine 1.52 H 1.76 H Creatinine Kinase MB (Mass) 67.20 H Glucose Level 157 # 175 Magnesium Level 2.2 Potassium Level 6.4 *H 5.5 H Sodium Level 137 143 Troponin I 12.600 *H Bedside Glucose 169 178 Test 05/28/16 08:15 05/28/16 12:04 Bedside Glucose 172 173 Medications Medications Current Medications Aspirin (Halfprin) 81 mg DAILY PO Last administered on 05/28/16at 08:19; Admin Dose 81 MG; Start 05/27/16 at 09:00 Clopidogrel Bisulfate (plaVIX) 75 mg DAILY PO Last administered on 05/28/16at 08:19; Admin Dose 75 MG; Start 05/27/16 at 09:00 Ferrous Sulfate (Ferrous Sulfate (Ec)) 325 mg BID PO Last administered on 05/28at 08:18; Admin Dose 325 MG; Start 05/27/16 at 09:00 Fluticasone Propionate (Flonase 0.05% Nasal) 1 spray BID NASAL Last administered on 05/28/16at 08:18; Admin Dose 1 SPRAY; Start 05/27/16 at 09:00 Gabapentin (Neurontin) 300 mg TID PO Last administered on 05/28/16at 12:13; Admin Dose 300 MG; Start 05/27/16 at 09:00 Guaifenesin/ Dextromethorphan (Robitussin Dm Liquid Cup) 10 ml Q4H PRN PO COUGH ; Start 12/13/16 at 21:30 Montelukast Sodium (Singulair) 10 mg HS PO Last administered on 05/27/16at 20: 54; Admin Dose 10 MG; Start 05/27/16 at 21:00 Oxycodone/ Acetaminophen (Endocet (10/ 325)) 1 tab Q6 PRN PO PAIN; Start 05/26 at 21:30 Salmeterol Xinafoate/ Fluticasone (Advair 500/50 Diskus) 1 inh BID INH Last administered on 05/28/16at 08:18; Admin Dose 1 INH; Start 05/27/16 at 09:00 Acetaminophen (Tylenol Tab) 650 mg Q4H PRN PO pain/fever; Start 05/26/16 at 21 :30 Ondansetron HCl (Zofran Inj) 4 mg Q4H PRN IV nausea; Start 05/26/16 at 21:30 Guaifenesin/ Dextromethorphan (Mucinex Dm) 1 tab BID PO Last administered on at 08:18; Admin Dose 1 TAB; Start 05/27/16 at 09:00 Fish Oil (Fish Oil) 1,000 mg DAILY PO Last administered on 05/28/16at 08:18; Admin Dose 1,000 MG; Start 05/27/16 at 09:00 Atorvastatin Calcium (Lipitor) 80 mg DAILY@21 PO Last administered on at 20:54; Admin Dose 80 MG; Start 05/27/16 at 00:00 Prednisone (Prednisone) 60 mg DAILY PO Last administered on 05/28/16at 08:19; Admin Dose 60 MG; Start 05/28/16 at 09:00 Tramadol HCl 50 mg 50 mg Q6H PRN PO PAIN Last administered on 05/28/16at 08:19 ; Admin Dose 50 MG; Start 05/27/16 at 14:00 Sodium Chloride (NS) 1,000 ml @ 60 mls/hr [id number] IV Last administered on at 12:13; Admin Dose 60 MLS/HR; Start 05/27/16 at 17:00; Stop 05/29/16 at 02:19 Miscellaneous Information 1 ea NOTE XX ; Start 05/27/16 at 18:30 Glucose (Glutose) 15 gm Q15M PRN PO DECREASED GLUCOSE; Start 05/27/16 at 18:30 Glucose (Glutose) 22.5 gm Q15M PRN PO DECREASED GLUCOSE; Start 05/27/16 at 18: 30 Dextrose (D50w Syringe) 25 ml Q15M PRN IV DECREASED GLUCOSE; Start 05/27/16 at 18:30 Dextrose (D50w Syringe) 50 ml Q15M PRN IV DECREASED GLUCOSE; Start 05/27/16 at 18:30 Glucagon (Glucagen) 1 mg Q15M PRN IM DECREASED GLUCOSE; Start 05/27/16 at 18: 30 Glucose (Glutose) 15 gm Q15M PRN BUCCAL DECREASED GLUCOSE; Start 05/27/16 at 18:30 Lidocaine (Xylocaine 1% (Mdv) 20 ml) 20 ml ONCE ONCE SC ; Start 05/28/16 at 14 :30; Stop 05/28/16 at 14:31; Status UNV RICHIE SWEET May 28, 2016 14:41
--- NOTE | 2016-05-28 14:59 | CONS ---
Date/Time of Note Date/Time of Note DATE: 05/28/16 TIME: 14:51 Assessment/Plan Assessment/Plan Additional Assessment/Plan Non-ST elevation [place] Acute kidney injury Cardiomyopathy ejection fraction 35% Mechanical fall with rib fractures Mild to moderate coronary artery disease based on catheterization in October 2014. Aortic stenosis, status post transcatheter aortic valve replacement in January 2015. Chronic obstructive pulmonary disease on home oxygen. -Repeat blood work yesterday evening with improvement in potassium but creatinine is on the rise. Awaiting laboratory studies from today. Continue aspirin and Plavix and statin therapy. Given renal dysfunction, Lovenox has been held and would start heparin after PICC line is placed. Given worsening renal function, risk of contrast-induced nephropathy is quite high at the current time. Would await better renal optimization and would consider coronary angiogram at that time. Plan of care discussed with patient and family at bedside. Consultation Date/Type/Reason Admit Date/Time May 26, 2016 at 19:17 Type of Consultation: cv 24 HR Interval Summary Free Text/Dictation Less shortness of breath today, denies chest pain or palpitations Exam/Review of Systems Vital Signs Vitals Vital Signs Date Time Temp Pulse Resp B/P Pulse Ox O2 Delivery O2 Flow Rate FiO2 05/28/16 14:04 80 20 98 Nasal Cannula 2.0 05/28/16 11:32 98.0 127/78 Intake and Output 05/27/16 05/27/16 05/28/16 15:00 23:00 07:00 Intake Total 300 ml Balance 300 ml Exam No apparent distress Constitutional: alert, oriented Head: normocephalic Neck: supple Respiratory: other (course breath sounds bilaterally with scattered rhonchi, no wheezing) Cardiovascular: other (S1-S2 heard), regular rate and rhythm Gastrointestinal: bowel sounds, non-tender, soft Extremities: edema Results Result Diagram: 05/26/16 1550 05/27/16 2135 Results 24 hrs Laboratory Tests Test 05/27/16 17:57 05/27/16 20:42 05/27/16 21:35 05/28/16 08:15 Bedside Glucose 169 178 172 Anion Gap 17 H Blood Urea Nitrogen 49 H Calcium Level 8.6 Carbon Dioxide Level 25 Chloride Level 107 Creatinine 1.76 H Glucose Level 175 Potassium Level 5.5 H Sodium Level 143 Test 05/28/16 12:04 Bedside Glucose 173 Medications Medications Current Medications Aspirin (Halfprin) 81 mg DAILY PO Last administered on 05/28/16 08:19; Admin Dose 81 MG; Start 05/27/16 at 09:00 Clopidogrel Bisulfate (plaVIX) 75 mg DAILY PO Last administered on 05/28/16at 08:19; Admin Dose 75 MG; Start 05/27/16 at 09:00 Ferrous Sulfate (Ferrous Sulfate (Ec)) 325 mg BID PO Last administered on 05/28 08:18; Admin Dose 325 MG; Start 05/27/16 at 09:00 Fluticasone Propionate (Flonase 0.05% Nasal) 1 spray BID NASAL Last administered on 05/28/16 08:18; Admin Dose 1 SPRAY; Start 05/27/16 at 09:00 Gabapentin (Neurontin) 300 mg TID PO Last administered on 05/28/16 12:13; Admin Dose 300 MG; Start 05/27/16 at 09:00 Guaifenesin/ Dextromethorphan (Robitussin Dm Liquid Cup) 10 ml Q4H PRN PO COUGH ; Start 05/26/16 at 21:30 Montelukast Sodium (Singulair) 10 mg HS PO Last administered on 05/27/16at 20: 54; Admin Dose 10 MG; Start 05/27/16 at 21:00 Oxycodone/ Acetaminophen (Endocet (10/ 325)) 1 tab Q6 PRN PO PAIN; Start 05/26 at 21:30 Salmeterol Xinafoate/ Fluticasone (Advair 500/50 Diskus) 1 inh BID INH Last administered on 05/28/16at 08:18; Admin Dose 1 INH; Start 05/27/16 at 09:00 Acetaminophen (Tylenol Tab) 650 mg Q4H PRN PO pain/fever; Start 05/26/16 at 21 :30 Ondansetron HCl (Zofran Inj) 4 mg Q4H PRN IV nausea; Start 05/26/16 at 21:30 Guaifenesin/ Dextromethorphan (Mucinex Dm) 1 tab BID PO Last administered on 08:18; Admin Dose 1 TAB; Start 05/27/16 at 09:00 Fish Oil (Fish Oil) 1,000 mg DAILY PO Last administered on 12/15/16at 08:18; Admin Dose 1,000 MG; Start 05/27/16 at 09:00 Atorvastatin Calcium (Lipitor) 80 mg DAILY@21 PO Last administered on at 20:54; Admin Dose 80 MG; Start 05/27/16 at 00:00 Tramadol HCl 50 mg 50 mg Q6H PRN PO PAIN Last administered on 05/28/16at 08:19 ; Admin Dose 50 MG; Start 05/27/16 at 14:00 Sodium Chloride (NS) 1,000 ml @ 60 mls/hr [id number] IV Last administered on at 12:13; Admin Dose 60 MLS/HR; Start 05/27/16 at 17:00; Stop 05/29/16 at 02:19 Miscellaneous Information 1 ea NOTE XX ; Start 05/27/16 at 18:30 Glucose (Glutose) 15 gm Q15M PRN PO DECREASED GLUCOSE; Start 05/27/16 at 18:30 Glucose (Glutose) 22.5 gm Q15M PRN PO DECREASED GLUCOSE; Start 05/27/16 at 18: 30 Dextrose (D50w Syringe) 25 ml Q15M PRN IV DECREASED GLUCOSE; Start 05/27/16 at 18:30 Dextrose (D50w Syringe) 50 ml Q15M PRN IV DECREASED GLUCOSE; Start 05/27/16 at 18:30 Glucagon (Glucagen) 1 mg Q15M PRN IM DECREASED GLUCOSE; Start 05/27/16 at 18: 30 Glucose (Glutose) 15 gm Q15M PRN BUCCAL DECREASED GLUCOSE; Start 05/27/16 at 18:30 Lidocaine (Xylocaine 1% (Mdv) 20 ml) 20 ml ONCE ONCE SC ; Start 05/28/16 at 14 :30; Stop 05/28/16 at 14:31; Status UNV Prednisone (Prednisone) 50 mg DAILY PO ; Start 05/29/16 at 09:00; Status UNV Calos Peralta DO May 28, 2016 14:59
[2016-05-28] MEDS ORDERED: HEPARIN 25000 UNITS/250 ML 250 ML IV SCH (15:00)
[2016-05-28] MEDS ORDERED: HEPARIN 1000 UNITS/ML 10 ML INJ IV PRN (15:00)
--- NOTE | 2016-05-28 15:49 | CONS ---
Date/Time of Note Date/Time of Note DATE: 05/28/16 TIME: 15:47 Assessment/Plan Assessment/Plan Chief Complaint/Hosp Course - Acute Kidney Injury post Contrast - CKD ( ? HTN Nephrosclerosis ) - Acute RI - Hyperkalemia - ? Rhabdomyolysis - COPD - Hx of Temporal Arteritis - CAD/CHF PLAN: At this point patient has been treated for Hyperkalemia & JOE with PO Meds & getting IVF with bicarb. (Also on prednisone for a Hx of TA ) Awaiting a PICC line so blood can be drawn today. Non-oligouric JOE post IV Contrast most probably due to Contrast Nephropathy Will check FENa ( usually these patient have a very low FENa ) Also ? ATN due to Rhabdo. Also ? AIN ( will check a urine for Eosinophilia ) Will also check the estimated proteinuria as well D/W Cardiology & will observe very closely Keep I/O positive & continue with IVF + Bicarb. Treat High Potassium Holding Cardiac Angiogram for now Follow up with serial CKs THANK YOU Cuong SWEET Problems: Consultation Date/Type/Reason Admit Date/Time May 26, 2016 at 19:17 Date of Consultation: May 28, 2016 Type of Consultation: NEPHROLOGY Reason for Consultation Acute Kidney Injury Constitutional: no complaints Eyes: no complaints ENT: no complaints Respiratory: cough Cardiovascular: no complaints Gastrointestinal: no complaints Genitourinary: no complaints Past Medical History Medical History: angina, congestive heart failure, coronary artery disease, hypertension Past Surgical History Past Surgical Hx: no surgical history, other (tavr) Family History Significant Family History: no pertinent family hx Social History Alcohol Use: none Smoking Status: Never smoker Drug Use: none Exam/Review of Systems Vital Signs Vitals Vital Signs Date Time Temp Pulse Resp B/P Pulse Ox O2 Delivery O2 Flow Rate FiO2 05/28/16 14:04 80 20 98 Nasal Cannula 2.0 05/28/16 11:32 98.0 127/78 Intake and Output 05/27/16 05/27/16 05/28/16 15:00 23:00 07:00 Intake Total 300 ml Balance 300 ml Exam Constitutional: alert, oriented Psych: no complaints Head: normocephalic Eyes: nl conjunctiva Neck: supple Respiratory: crackles/rales Cardiovascular: systolic murmur Gastrointestinal: soft Results Result Diagram: 05/26/16 1550 05/27/16 2135 Results 24 hrs Laboratory Tests Test 05/27/16 17:57 05/27/16 20:42 05/27/16 21:35 05/28/16 08:15 Bedside Glucose 169 178 172 Anion Gap 17 H Blood Urea Nitrogen 49 H Calcium Level 8.6 Carbon Dioxide Level 25 Chloride Level 107 Creatinine 1.76 H Glucose Level 175 Potassium Level 5.5 H Sodium Level 143 Test 05/28/16 12:04 Bedside Glucose 173 Medications Medications Current Medications Aspirin (Halfprin) 81 mg DAILY PO Last administered on 05/28/16at 08:19; Admin Dose 81 MG; Start 05/27/16 at 09:00 Clopidogrel Bisulfate (plaVIX) 75 mg DAILY PO Last administered on 05/28/16at 08:19; Admin Dose 75 MG; Start 05/27/16 at 09:00 Ferrous Sulfate (Ferrous Sulfate (Ec)) 325 mg BID PO Last administered on 05/28at 08:18; Admin Dose 325 MG; Start 05/27/16 at 09:00 Fluticasone Propionate (Flonase 0.05% Nasal) 1 spray BID NASAL Last administered on 05/28/16at 08:18; Admin Dose 1 SPRAY; Start 05/27/16 at 09:00 Gabapentin (Neurontin) 300 mg TID PO Last administered on 05/28/16at 12:13; Admin Dose 300 MG; Start 05/27/16 at 09:00 Guaifenesin/ Dextromethorphan (Robitussin Dm Liquid Cup) 10 ml Q4H PRN PO COUGH ; Start 05/26/16 at 21:30 Montelukast Sodium (Singulair) 10 mg HS PO Last administered on 05/27/16at 20: 54; Admin Dose 10 MG; Start 05/27/16 at 21:00 Oxycodone/ Acetaminophen (Endocet (10/ 325)) 1 tab Q6 PRN PO PAIN; Start 05/26 at 21:30 Salmeterol Xinafoate/ Fluticasone (Advair 500/50 Diskus) 1 inh BID INH Last administered on 05/28/16at 08:18; Admin Dose 1 INH; Start 05/27/16 at 09:00 Acetaminophen (Tylenol Tab) 650 mg Q4H PRN PO pain/fever; Start 05/26/16 at 21 :30 Ondansetron HCl (Zofran Inj) 4 mg Q4H PRN IV nausea; Start 05/26/16 at 21:30 Guaifenesin/ Dextromethorphan (Mucinex Dm) 1 tab BID PO Last administered on at 08:18; Admin Dose 1 TAB; Start 05/27/16 at 09:00 Fish Oil (Fish Oil) 1,000 mg DAILY PO Last administered on 05/28/16at 08:18; Admin Dose 1,000 MG; Start 05/27/16 at 09:00 Atorvastatin Calcium (Lipitor) 80 mg DAILY@21 PO Last administered on at 20:54; Admin Dose 80 MG; Start 05/27/16 at 00:00 Tramadol HCl 50 mg 50 mg Q6H PRN PO PAIN Last administered on 05/28/16at 08:19 ; Admin Dose 50 MG; Start 05/27/16 at 14:00 Sodium Chloride (NS) 1,000 ml @ 60 mls/hr [id number] IV Last administered on at 12:13; Admin Dose 60 MLS/HR; Start 05/27/16 at 17:00; Stop 05/29/16 at 02:19 Miscellaneous Information 1 ea NOTE XX ; Start 05/27/16 at 18:30 Glucose (Glutose) 15 gm Q15M PRN PO DECREASED GLUCOSE; Start 05/27/16 at 18:30 Glucose (Glutose) 22.5 gm Q15M PRN PO DECREASED GLUCOSE; Start 05/27/16 at 18: 30 Dextrose (D50w Syringe) 25 ml Q15M PRN IV DECREASED GLUCOSE; Start 05/27/16 at 18:30 Dextrose (D50w Syringe) 50 ml Q15M PRN IV DECREASED GLUCOSE; Start 05/27/16 at 18:30 Glucagon (Glucagen) 1 mg Q15M PRN IM DECREASED GLUCOSE; Start 05/27/16 at 18: 30 Glucose (Glutose) 15 gm Q15M PRN BUCCAL DECREASED GLUCOSE; Start 05/27/16 at 18:30 Prednisone (Prednisone) 50 mg DAILY PO ; Start 05/29/16 at 09:00 PATT FARRELL MD May 28, 2016 15:49
--- NOTE | 2016-05-28 16:35 | RADRPT ---
PROCEDURE: Ultrasound guidance for placement of needle in right upper extremity vein. CLINICAL INDICATION: Venous access. TECHNIQUE: Limited sonography of the right upper extremity was performed. Ultrasound images were recorded and stored in the patient's medical record. COMPARISON: None. FINDINGS: The ultrasound images demonstrate a patent right upper extremity vein. The PICC line was inserted b y the PICC line nurse. IMPRESSION: 1. Ultrasound guidance for a needle placement in a right upper extremity vein. 2. The visualized right upper extremity vein is patent. RPTAT: QQ .Oscar Jackson MD, MD Date Time Electronically viewed and signed by .Oscar Jackson MD, MD on 05/28/2016 16:34 .R/
--- NOTE | 2016-05-28 16:35 | RADRPT ---
PROCEDURE: XR Chest. CLINICAL INDICATION: Check PICC line position. TECHNIQUE: Single frontal view. COMPARISON: 05/26/2016. FINDINGS: There is a right arm PICC line with the tip in the lower superior vena cava. There is new patchy ai r space disease in the left upper lobe consistent with pneumonia. Mild pulmonary edema is unchanged . The lungs are otherwise clear. The heart is enlarged. There is calcification in the aorta consistent with atherosclerosis. There is no pleural effusion. There is no pneumothorax. IMPRESSION: 1. Satisfactory position of right arm PICC line. 2. New left upper lobe pneumonia. 3. Mild pulmonary edema, unchanged. 4. Cardiomegaly and atherosclerosis. RPTAT: QQ .Oscar Jackson MD, MD Date Time Electronically viewed and signed by .Oscar Jackson MD, on 05/28/2016 16:35 .R/
[2016-05-28 17:41] LABS: HEMATOCRIT 24.2 % (42.0-52.0); MEAN CORPUSCULAR HGB CONC 33.1 g/dl (32.0-37.0); MEAN CORPUSCULAR VOLUME 99.8 fl (82.0-101.0); MEAN PLATELET VOLUME 7.5 fl (7.4-10.4); PLATELET COUNT 270 10^3/UL (140-440); RED BLOOD COUNT 2.42 10^6/ul (4.70-6.10); RED CELL DISTRIBUTION WIDTH 15.3 % (11.5-14.5); UNCORRECTED WBC 8.8 10^3/ul (4.8-10.8); WHITE BLOOD COUNT 8.8 10^3/ul (4.8-10.8)
[2016-05-28 17:48] LABS: CONDITION 1; LH ANALYZER COMMENTS 1
[2016-05-28 17:52] LABS: INR 1.02; PROTIME 13.4 Sec (12.2-14.2)
[2016-05-28 17:53] LABS: PARTIAL THROMBOPLASTIN TIME 35.6 Sec (25.0-35.0)
[2016-05-28 18:11] LABS: ALBUMIN 3.2 g/dl (3.3-4.9); POTASSIUM 4.1 mmol/L (3.5-5.1)
[2016-05-28 18:13] LABS: CREATININE 1.53 mg/dl (0.61-1.24)
[2016-05-28 18:14] LABS: ALBUMIN/GLOBULIN RATIO 0.88; BILIRUBIN,INDIRECT 0.1 mg/dl (0-1.1); BILIRUBIN,TOTAL 0.1 mg/dl (0.2-1.3); TOTAL PROTEIN 6.8 g/dl (6.1-8.1)
[2016-05-28 18:15] LABS: CALCIUM 7.6 mg/dl (8.4-10.2); PHOSPHORUS 5.3 mg/dl (2.5-4.9)
[2016-05-28 18:16] LABS: MAGNESIUM 2.2 mg/dl (1.7-2.5)
[2016-05-28 18:33] LABS: LYMPHOCYTES # 0.4 10^3/ul (0.8-2.9); MONOCYTE # 0.3 10^3/ul (0.3-0.9)
[2016-05-28] MEDS: MONTELUKAST 10 MG TAB PO SCH (21:55)
[2016-05-28] MEDS: ATORVASTATIN 80 MG TAB PO SCH (21:55)
[2016-05-29] VITALS (12 sets, daily range): BP systolic 108–138; BP diastolic 58–79; PULSE 82–117; RESP 16–20
[2016-05-29] MEDS: ALBUTEROL/IPRATROPIUM (NEB) 3 ML AMP HHN SCH ×4 (02:12→19:17)
[2016-05-29 06:57] LABS: ALBUMIN 2.9 g/dl (3.3-4.9); POTASSIUM 3.7 mmol/L (3.5-5.1)
[2016-05-29 07:00] LABS: ALBUMIN/GLOBULIN RATIO 0.9; BILIRUBIN,INDIRECT 0.1 mg/dl (0-1.1); BILIRUBIN,TOTAL 0.1 mg/dl (0.2-1.3); CALCIUM 6.9 mg/dl (8.4-10.2); CREATININE 1.28 mg/dl (0.61-1.24); TOTAL PROTEIN 6.1 g/dl (6.1-8.1)
[2016-05-29 07:44] LABS: MAGNESIUM 2.3 mg/dl (1.7-2.5); PHOSPHORUS 4.6 mg/dl (2.5-4.9)
[2016-05-29] MEDS ORDERED: predniSONE 20 MG TAB PO SCH ×2 (09:00→10:00)
[2016-05-29 09:38] LABS: BASOPHILS % 0.1 % (0.0-2.0); HEMATOCRIT 22.6 % (42.0-52.0); HEMOGLOBIN 7.6 g/dl (14.0-18.0); LYMPHOCYTES % 14.2 % (15.0-51.0); MEAN CORPUSCULAR HEMOGLOBIN 33.4 pg (29.0-33.0); MEAN CORPUSCULAR HGB CONC 33.6 g/dl (32.0-37.0); MEAN CORPUSCULAR VOLUME 99.5 fl (82.0-101.0); MEAN PLATELET VOLUME 7.8 fl (7.4-10.4); MONOCYTE # 0.6 10^3/ul (0.3-0.9); MONOCYTES % 8.9 % (0.0-11.0); NEUTROPHIL # 5.5 10^3/ul (1.6-7.5); NEUTROPHILS % 76.8 % (39.0-77.0); PLATELET COUNT 239 10^3/UL (140-440); RED BLOOD COUNT 2.27 10^6/ul (4.70-6.10); RED CELL DISTRIBUTION WIDTH 15.1 % (11.5-14.5); UNCORRECTED WBC 7.2 10^3/ul (4.8-10.8); WHITE BLOOD COUNT 7.2 10^3/ul (4.8-10.8)
[2016-05-29 09:50] LABS: CONDITION 1; LH ANALYZER COMMENTS 1
[2016-05-29 09:52] LABS: MAGNESIUM 2.3 mg/dl (1.7-2.5); PHOSPHORUS 3.9 mg/dl (2.5-4.9)
--- NOTE | 2016-05-29 10:21 | PN ---
Date/Time of Note Date/Time of Note DATE: 05/29/16 TIME: 10:00 Assessment/Plan VTE Prophylaxis VTE Prophylaxis Intervention: heparin (gtt for now ) Lines/Catheters IV Catheter Type (from Nrsg): PICC Line Central line still needed: Yes (fo IV access ) Urinary Cath still in place: No Assessment/Plan Assessment/Plan 80 yo male with: 1. NSTEMI, patient s/p TAVR and with cardiomyopathy with troponin picked up at 13, per previous angio coronary artery disease, nonobstructive Echo with EF down to 30% and ? Takotsubo Repeat Angiogram pending recovery of renal function ON 2L NC and stable On Heparin gtt 2. COPD, O2 dependent Remains stable, decrease Prednisone to 40 daily for tomorrow and continue tapering slowly back to outpatient dosing. Nebs rx , Advair and Spiriva 3. JOE on CKD: Appreciate Dr Cordero's recommendations Renal function recovering and electrolyte abnormality resolved s/p adequate treatment Continue to monitor 4. S/p accidental fall last weekend and with RLE Hematoma and RUE ecchymosis and right rib fractures Pain control with Percocet prn and Tramadol prn Concerns with Hb now decreasing, multiple ecchymosis and hematomas especially RLE hematoma on heparin gtt Check CT right LE and surgical eval today 5. Acute on chronic Anemia with hematomas and concerns for ongoing blood loss: CT RLE stat and serial h/h with possible transfusion later today if Hb remains below 8 6. Chronic back pain with acute component now with rib fractures: Percocet and tramadol prn 7. Hypertension: Currently low BP so holding Diovan 8. Congestive heart failure, systolic dysfunction EF 30 % on echo today. Patient compensated on exam, monitor closely 9. Temporal arteritis. The patient is already on prednisone. 10. Previous history of transient ischemic attack. Patient's mental status is stable and at baseline. Prophylaxis: On Heparin gtt with NSTEMI, PPI for GI ppx while on steroids especially Disposition: CT RLE non contrast and surgical eval due too concerns for ongoing bleeding. Angiogram when recovery of renal function Subjective 24 Hr Interval Summary Free Text/Dictation Patient feels oK but weak Renal function recovering RLE hematoma seems "bigger" per patient and his , concerns for ongoing bleeding CT RLE pending and surgical consult will be placed Exam/Review of Systems Vital Signs Vitals Vital Signs Date Time Temp Pulse Resp B/P Pulse Ox O2 Delivery O2 Flow Rate FiO2 05/29/16 08:23 97 05/29/16 08:15 18 98 Nasal Cannula 2.0 05/29/16 07:55 97.8 138/79 Intake and Output 05/28/16 05/28/16 05/29/16 15:00 23:00 07:00 Intake Total 250 ml 76 ml Output Total 300 ml Balance -50 ml 76 ml Exam Constitutional: alert, oriented, well developed Respiratory: clear to auscultation, diminished breath sounds (bases bilaterally ), normal air movement Cardiovascular: nl pulses, regular rate and rhythm Gastrointestinal: non-tender, soft Musculoskeletal: other (large hematoma RLE ) Extremities: normal pulses 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: [employer] II-XII intact, nl mental status, nl speech Results Result Diagram: 05/29/16 0820 05/29/16 0505 Results 24 hrs Laboratory Tests Test 05/28/16 12:04 05/28/16 16:49 05/28/16 17:15 05/28/16 22:02 Bedside Glucose 173 222 H 197 Activated Partial Thromboplast Time 35.6 H Alanine Aminotransferase (ALT/SGPT) 45 Albumin 3.2 L Albumin/Globulin Ratio 0.88 Alkaline Phosphatase 53 Anion Gap 14 Aspartate Amino Transf (AST/SGOT) 92 H Band Neutrophils % 2.0 Basophils # Basophils % Blood Morphology Comment Blood Urea Nitrogen 54 H Calcium Level 7.6 L Carbon Dioxide Level 26 Chloride Level 108 Creatine Kinase 490 #H Creatinine 1.53 H Direct Bilirubin 0.00 Eosinophils # Eosinophils % Globulin 3.60 H Glucose Level 189 Hematocrit 24.2 L Hemoglobin 8.0 L INR International Normalized Ratio 1.02 Indirect Bilirubin 0.1 Lymphocytes # 0.4 L Lymphocytes % 4.0 L Magnesium Level 2.2 Mean Corpuscular Hemoglobin 33.0 Mean Corpuscular Hemoglobin Concent 33.1 Mean Corpuscular Volume 99.8 Mean Platelet Volume 7.5 Monocytes # 0.3 Monocytes % 3.0 Neutrophils # 8.0 H Neutrophils % 91.0 H Nucleated Red Blood Cells # Nucleated Red Blood Cells % 0.0 Phosphorus Level 5.3 H Platelet Count 270 Potassium Level 4.1 Prothrombin Time 13.4 Prothrombin Time Ratio 1.0 Red Blood Count 2.42 L Red Cell Distribution Width 15.3 H Sodium Level 144 Total Bilirubin 0.1 L Total Protein 6.8 White Blood Count 8.8 # Test 05/29/16 05:05 05/29/16 08:20 05/29/16 08:46 Activated Partial Thromboplast Time > 180.0 *H Alanine Aminotransferase (ALT/SGPT) 42 Albumin 2.9 L Albumin/Globulin Ratio 0.90 Alkaline Phosphatase 37 L Anion Gap 12 Aspartate Amino Transf (AST/SGOT) 82 H Blood Urea Nitrogen 58 H Calcium Level 6.9 L Carbon Dioxide Level 25 Chloride Level 108 Creatinine 1.28 H Direct Bilirubin 0.00 Globulin 3.20 Glucose Level 162 Indirect Bilirubin 0.1 Magnesium Level 2.3 2.3 Phosphorus Level 4.6 3.9 Potassium Level 3.7 Sodium Level 141 Total Bilirubin 0.1 L Total Protein 6.1 Basophils # 0.0 Basophils % 0.1 Blood Morphology Comment Eosinophils # 0.0 Eosinophils % 0.0 Hematocrit 22.6 L Hemoglobin 7.6 L Lymphocytes # 1.0 Lymphocytes % 14.2 L Mean Corpuscular Hemoglobin 33.4 H Mean Corpuscular Hemoglobin Concent 33.6 Mean Corpuscular Volume 99.5 Mean Platelet Volume 7.8 Monocytes # 0.6 Monocytes % 8.9 Neutrophils # 5.5 Neutrophils % 76.8 Nucleated Red Blood Cells # 0.0 Nucleated Red Blood Cells % 0.0 Platelet Count 239 Red Blood Count 2.27 L Red Cell Distribution Width 15.1 H White Blood Count 7.2 Bedside Glucose 157 Medications Medications Current Medications Aspirin (Halfprin) 81 mg DAILY PO Last administered on 05/28/16 08:19; Admin Dose 81 MG; Start 05/27/16 at 09:00 Clopidogrel Bisulfate (plaVIX) 75 mg DAILY PO Last administered on 05/28/16 08:19; Admin Dose 75 MG; Start 05/27/16 at 09:00 Ferrous Sulfate (Ferrous Sulfate (Ec)) 325 mg BID PO Last administered on 05/28 21:55; Admin Dose 325 MG; Start 05/27/16 at 09:00 Fluticasone Propionate (Flonase 0.05% Nasal) 1 spray BID NASAL Last administered on 05/28/16 21:55; Admin Dose 1 SPRAY; Start 05/27/16 at 09:00 Gabapentin (Neurontin) 300 mg TID PO Last administered on 05/28/16 21:55; Admin Dose 300 MG; Start 05/27/16 at 09:00 Guaifenesin/ Dextromethorphan (Robitussin Dm Liquid Cup) 10 ml Q4H PRN PO COUGH ; Start 05/26/16 at 21:30 Montelukast Sodium (Singulair) 10 mg HS PO Last administered on 05/28/16at 21: 55; Admin Dose 10 MG; Start 05/27/16 at 21:00 Oxycodone/ Acetaminophen (Endocet (10/ 325)) 1 tab Q6 PRN PO PAIN; Start 05/26 at 21:30 Salmeterol Xinafoate/ Fluticasone (Advair 500/50 Diskus) 1 inh BID INH Last administered on 05/28/16at 21:56; Admin Dose 1 INH; Start 05/27/16 at 09:00 Acetaminophen (Tylenol Tab) 650 mg Q4H PRN PO pain/fever; Start 05/26/16 at 21 :30 Ondansetron HCl (Zofran Inj) 4 mg Q4H PRN IV nausea; Start 05/26/16 at 21:30 Guaifenesin/ Dextromethorphan (Mucinex Dm) 1 tab BID PO Last administered on at 21:55; Admin Dose 1 TAB; Start 05/27/16 at 09:00 Fish Oil (Fish Oil) 1,000 mg DAILY PO Last administered on 05/28/16at 08:18; Admin Dose 1,000 MG; Start 05/27/16 at 09:00 Atorvastatin Calcium (Lipitor) 80 mg DAILY@21 PO Last administered on at 21:55; Admin Dose 80 MG; Start 05/27/16 at 00:00 Tramadol HCl (Ultram) 50 mg Q6H PRN PO PAIN Last administered on 05/28/16at 08: 19; Admin Dose 50 MG; Start 05/27/16 at 14:00 Miscellaneous Information 1 ea NOTE XX ; Start 05/27/16 at 18:30 Glucose (Glutose) 15 gm Q15M PRN PO DECREASED GLUCOSE; Start 05/27/16 at 18:30 Glucose (Glutose) 22.5 gm Q15M PRN PO DECREASED GLUCOSE; Start 05/27/16 at 18: 30 Dextrose (D50w Syringe) 25 ml Q15M PRN IV DECREASED GLUCOSE; Start 05/27/16 at 18:30 Dextrose (D50w Syringe) 50 ml Q15M PRN IV DECREASED GLUCOSE; Start 05/27/16 at 18:30 Glucagon (Glucagen) 1 mg Q15M PRN IM DECREASED GLUCOSE; Start 05/27/16 at 18: 30 Glucose (Glutose) 15 gm Q15M PRN BUCCAL DECREASED GLUCOSE; Start 05/27/16 at 18:30 Prednisone (Prednisone) 50 mg DAILY PO ; Start 05/29/16 at 09:00 IV Flush (NS 10 ml) 10 ml PRN PRN IV IV PROTOCOL; Start 05/28/16 at 17:30 RICHIE SWEET May 29, 2016 10:10
--- NOTE | 2016-05-29 10:30 | CONS ---
Date/Time of Note Date/Time of Note DATE: 05/29/16 TIME: 10:27 Assessment/Plan Assessment/Plan Chief Complaint/Hosp Course - Acute Kidney Injury post Contrast - CKD ( ? HTN Nephrosclerosis ) - Acute NE - Hyperkalemia - ? Rhabdomyolysis - COPD - Hx of Temporal Arteritis - CAD/CHF PLAN: Improving Creatinine & ATN Continue with Monitoring renal function Start EPOGEN Check Iron status Will start IVF hopefully on Wednesday prior to possible Angiogram Will start MUCOMYST on Wednesday THANK YOU Cuong SWEET Problems: Consultation Date/Type/Reason Admit Date/Time May 26, 2016 at 19:17 Initial Consult Date 05/28/16 Type of Consultation: NEPHROLOGY Reason for Consultation JOE 24 HR Interval Summary Constitutional: improved, no complaints Exam/Review of Systems Vital Signs Vitals Vital Signs Date Time Temp Pulse Resp B/P Pulse Ox O2 Delivery O2 Flow Rate FiO2 05/29/16 08:23 97 05/29/16 08:15 18 98 Nasal Cannula 2.0 05/29/16 07:55 97.8 138/79 Intake and Output 05/28/16 05/28/16 05/29/16 15:00 23:00 07:00 Intake Total 250 ml 76 ml Output Total 300 ml Balance -50 ml 76 ml Exam Constitutional: oriented, well developed Psych: no complaints Head: normocephalic Eyes: nl conjunctiva Respiratory: crackles/rales Cardiovascular: regular rate and rhythm, systolic murmur Gastrointestinal: soft Results Result Diagram: 05/29/16 0820 05/29/16 0505 Results 24 hrs Laboratory Tests Test 05/28/16 12:04 05/28/16 16:49 05/28/16 17:15 05/28/16 22:02 Bedside Glucose 173 222 H 197 Activated Partial Thromboplast Time 35.6 H Alanine Aminotransferase (ALT/SGPT) 45 Albumin 3.2 L Albumin/Globulin Ratio 0.88 Alkaline Phosphatase 53 Anion Gap 14 Aspartate Amino Transf (AST/SGOT) 92 H Band Neutrophils % 2.0 Basophils # Basophils % Blood Morphology Comment Blood Urea Nitrogen 54 H Calcium Level 7.6 L Carbon Dioxide Level 26 Chloride Level 108 Creatine Kinase 490 #H Creatinine 1.53 H Direct Bilirubin 0.00 Eosinophils # Eosinophils % Globulin 3.60 H Glucose Level 189 Hematocrit 24.2 L Hemoglobin 8.0 L INR International Normalized Ratio 1.02 Indirect Bilirubin 0.1 Lymphocytes # 0.4 L Lymphocytes % 4.0 L Magnesium Level 2.2 Mean Corpuscular Hemoglobin 33.0 Mean Corpuscular Hemoglobin Concent 33.1 Mean Corpuscular Volume 99.8 Mean Platelet Volume 7.5 Monocytes # 0.3 Monocytes % 3.0 Neutrophils # 8.0 H Neutrophils % 91.0 H Nucleated Red Blood Cells # Nucleated Red Blood Cells % 0.0 Phosphorus Level 5.3 H Platelet Count 270 Potassium Level 4.1 Prothrombin Time 13.4 Prothrombin Time Ratio 1.0 Red Blood Count 2.42 L Red Cell Distribution Width 15.3 H Sodium Level 144 Total Bilirubin 0.1 L Total Protein 6.8 White Blood Count 8.8 # Test 05/29/16 05:05 05/29/16 08:20 05/29/16 08:46 Activated Partial Thromboplast Time > 180.0 *H 107.6 *H Alanine Aminotransferase (ALT/SGPT) 42 Albumin 2.9 L Albumin/Globulin Ratio 0.90 Alkaline Phosphatase 37 L Anion Gap 12 Aspartate Amino Transf (AST/SGOT) 82 H Blood Urea Nitrogen 58 H Calcium Level 6.9 L Carbon Dioxide Level 25 Chloride Level 108 Creatinine 1.28 H Direct Bilirubin 0.00 Globulin 3.20 Glucose Level 162 Indirect Bilirubin 0.1 Magnesium Level 2.3 2.3 Phosphorus Level 4.6 3.9 Potassium Level 3.7 Sodium Level 141 Total Bilirubin 0.1 L Total Protein 6.1 Basophils # 0.0 Basophils % 0.1 Blood Morphology Comment Eosinophils # 0.0 Eosinophils % 0.0 Hematocrit 22.6 L Hemoglobin 7.6 L Lymphocytes # 1.0 Lymphocytes % 14.2 L Mean Corpuscular Hemoglobin 33.4 H Mean Corpuscular Hemoglobin Concent 33.6 Mean Corpuscular Volume 99.5 Mean Platelet Volume 7.8 Monocytes # 0.6 Monocytes % 8.9 Neutrophils # 5.5 Neutrophils % 76.8 Nucleated Red Blood Cells # 0.0 Nucleated Red Blood Cells % 0.0 Platelet Count 239 Red Blood Count 2.27 L Red Cell Distribution Width 15.1 H White Blood Count 7.2 Bedside Glucose 157 Medications Medications Current Medications Aspirin (Halfprin) 81 mg DAILY PO Last administered on 05/28/16at 08:19; Admin Dose 81 MG; Start 05/27/16 at 09:00 Clopidogrel Bisulfate (plaVIX) 75 mg DAILY PO Last administered on 05/28/16 08:19; Admin Dose 75 MG; Start 05/27/16 at 09:00 Ferrous Sulfate (Ferrous Sulfate (Ec)) 325 mg BID PO Last administered on 05/28 21:55; Admin Dose 325 MG; Start 05/27/16 at 09:00 Fluticasone Propionate (Flonase 0.05% Nasal) 1 spray BID NASAL Last administered on 05/28/16 21:55; Admin Dose 1 SPRAY; Start 05/27/16 at 09:00 Gabapentin (Neurontin) 300 mg TID PO Last administered on 05/28/16 21:55; Admin Dose 300 MG; Start 05/27/16 at 09:00 Guaifenesin/ Dextromethorphan (Robitussin Dm Liquid Cup) 10 ml Q4H PRN PO COUGH ; Start 05/26/16 at 21:30 Montelukast Sodium (Singulair) 10 mg HS PO Last administered on 05/28/16at 21: 55; Admin Dose 10 MG; Start 05/27/16 at 21:00 Oxycodone/ Acetaminophen (Endocet (10/ 325)) 1 tab Q6 PRN PO PAIN; Start 05/26 at 21:30 Salmeterol Xinafoate/ Fluticasone (Advair 500/50 Diskus) 1 inh BID INH Last administered on 05/28/16at 21:56; Admin Dose 1 INH; Start 05/27/16 at 09:00 Acetaminophen (Tylenol Tab) 650 mg Q4H PRN PO pain/fever; Start 05/26/16 at 21 :30 Ondansetron HCl (Zofran Inj) 4 mg Q4H PRN IV nausea; Start 05/26/16 at 21:30 Guaifenesin/ Dextromethorphan (Mucinex Dm) 1 tab BID PO Last administered on 21:55; Admin Dose 1 TAB; Start 05/27/16 at 09:00 Fish Oil (Fish Oil) 1,000 mg DAILY PO Last administered on 05/28/16 08:18; Admin Dose 1,000 MG; Start 05/27/16 at 09:00 Atorvastatin Calcium (Lipitor) 80 mg DAILY@21 PO Last administered on 12/15/ 16at 21:55; Admin Dose 80 MG; Start 05/27/16 at 00:00 Tramadol HCl (Ultram) 50 mg Q6H PRN PO PAIN Last administered on 05/28/16at 08: 19; Admin Dose 50 MG; Start 05/27/16 at 14:00 Miscellaneous Information 1 ea NOTE XX ; Start 05/27/16 at 18:30 Glucose (Glutose) 15 gm Q15M PRN PO DECREASED GLUCOSE; Start 05/27/16 at 18:30 Glucose (Glutose) 22.5 gm Q15M PRN PO DECREASED GLUCOSE; Start 05/27/16 at 18: 30 Dextrose (D50w Syringe) 25 ml Q15M PRN IV DECREASED GLUCOSE; Start 05/27/16 at 18:30 Dextrose (D50w Syringe) 50 ml Q15M PRN IV DECREASED GLUCOSE; Start 05/27/16 at 18:30 Glucagon (Glucagen) 1 mg Q15M PRN IM DECREASED GLUCOSE; Start 05/27/16 at 18: 30 Glucose (Glutose) 15 gm Q15M PRN BUCCAL DECREASED GLUCOSE; Start 05/27/16 at 18:30 IV Flush (NS 10 ml) 10 ml PRN PRN IV IV PROTOCOL; Start 05/28/16 at 17:30 Prednisone (Prednisone) 40 mg DAILY PO ; Start 05/30/16 at 09:00 PATT FARRELL MD May 29, 2016 10:30
[2016-05-29] MEDS: SALMETEROL/FLUTICASONE 500/50 INHA INH SCH ×2 (10:34→20:39)
[2016-05-29] MEDS: INSULIN ASPART [NOVOLOG] 3 ML PEN SC SCH ×4 (10:39→21:20)
[2016-05-29] MEDS: ASPIRIN (EC) 81 MG TAB PO SCH (10:40)
[2016-05-29] MEDS: CLOPIDOGREL 75 MG TAB PO SCH (10:42)
[2016-05-29] MEDS: FERROUS SULFATE (EC) 325 MG TAB PO SCH ×2 (10:42→20:39)
[2016-05-29] MEDS: GUAIFENESIN/DM (SR) TAB PO SCH ×2 (10:42→20:39)
[2016-05-29] MEDS: GABAPENTIN 300 MG CAP PO SCH ×3 (10:42→20:39)
[2016-05-29] MEDS: FISH OIL 1,000 MG CAP PO SCH (10:42)
[2016-05-29] MEDS: FLUTICASONE 0.05% 16 GM NAS SPRAY NASAL SCH ×2 (10:43→20:39)
--- NOTE | 2016-05-29 11:46 | RADRPT ---
PROCEDURE: CT of the right tibia / fibula without contrast CLINICAL INDICATION: Possible hematoma TECHNIQUE: CT scan of the right tibia / fibula was performed. No IV contrast was administered. C oronal and sagittal reformatted images were obtained from the axial source images. images. The calcu lated radiation dose measures 3260.79 mGy centimeters. The CTDI measures 63.87 mGy. Images were revi ewed on a high-resolution PACS workstation. COMPARISON: Radiographs from 05/23/2016 FINDINGS: Soft tissues: There is a large hyperintense subcutaneous collection at the, lateral margin of the t ibia / fibula best seen on the coronal series image 101 and axial series image 106. The collection m easures 6.20 x 15.8 x 2.1 cm (AP by CC by TR). There is no associated subcutaneous air and is presu mably the patient's hematoma., there is moderate skin thickening noted throughout the lower extremit y, which is nonspecific. No abnormal intramuscular collections are present. Atherosclerotic vascul ar calcifications are seen. A small suprapatellar effusion and mild synovial thickening is present and small popliteal cyst. Osseous structures: A cemented right total knee arthroplasty is present without evidence of a perip rosthetic fracture or bulky osteolysis. The osseous structures appear demineralized. There is no d isplacement of the polyethylene component. The patellar component is located. The IMPRESSION: 1. A 6.2 x 15.8 x 2.1 cm hyperintense subcutaneous collection at the anterolateral aspect of the mi d to proximal tibia / fibula, presumably representing the patient's hematoma without intramuscular i nvolvement. Follow up imaging to document resolution may be obtained if another etiology is suspect ed. 2. Partially evaluated cemented total knee arthroplasty without evidence of a periprosthetic fractu re. 3. Nonspecific suprapatellar effusion with synovial thickening and trace popliteal cyst. RPTAT: PP .Kasi Daily MD, Date Time Electronically viewed and signed by .Kasi Daily MD, MD on 05/29/2016 11:46 .d/
[2016-05-29] MEDS ORDERED: EPOETIN 4000 UNITS/1 ML INJ (ESRD) SC ONE (12:00)
--- NOTE | 2016-05-29 12:19 | CONS ---
Date/Time of Note Date/Time of Note DATE: 05/29/16 TIME: 12:14 Assessment/Plan Assessment/Plan Additional Assessment/Plan Non-ST elevation [place] Acute kidney injury, improving Cardiomyopathy ejection fraction 35% Acute blood loss anemia Mechanical fall with rib fractures and right lower extremity trauma Mild to moderate coronary artery disease based on catheterization in October 2014. Aortic stenosis, status post transcatheter aortic valve replacement in January 2015. Chronic obstructive pulmonary disease on home oxygen. -Patient with improvement in renal function and hyperkalemia. Patient restarted on heparin with significant bleeding in the right lower extremity and drop in hemoglobin. Given the risk of worsening anemia and bleeding from trauma, would stop heparin at the current time. Would continue aspirin and Plavix. Would recommend blood transfusion to maintain hemoglobin near 10 given recent myocardial infarction. If patient continues to improve in regards to anemia and renal function, and if our renal colleagues agree, would tentatively plan for coronary angiogram on 06/01/2016 Consultation Date/Type/Reason Admit Date/Time May 26, 2016 at 19:17 Type of Consultation: cv 24 HR Interval Summary Free Text/Dictation Shortness of breath has improved, denies chest pain, palpitations or dizziness Exam/Review of Systems Vital Signs Vitals Vital Signs Date Time Temp Pulse Resp B/P Pulse Ox O2 Delivery O2 Flow Rate FiO2 05/29/16 12:00 98.3 83 108/59 98 05/29/16 08:15 18 Nasal Cannula 2.0 Intake and Output 05/28/16 05/28/16 05/29/16 15:00 23:00 07:00 Intake Total 250 ml 76 ml Output Total 300 ml Balance -50 ml 76 ml Exam No apparent distress Constitutional: alert, oriented Head: normocephalic Neck: supple Respiratory: other (course breath sounds bilaterally with scattered rhonchi, no wheezing) Cardiovascular: other (S1-S2 heard), regular rate and rhythm Gastrointestinal: bowel sounds, non-tender, soft Extremities: edema, other (right lower extremity bandaged) Results Result Diagram: 05/29/16 0820 05/29/16 0505 Results 24 hrs Laboratory Tests Test 05/28/16 16:49 05/28/16 17:15 05/28/16 22:02 05/29/16 05:05 Bedside Glucose 222 H 197 Activated Partial Thromboplast Time 35.6 H > 180.0 *H Alanine Aminotransferase (ALT/SGPT) 45 42 Albumin 3.2 L 2.9 L Albumin/Globulin Ratio 0.88 0.90 Alkaline Phosphatase 53 37 L Anion Gap 14 12 Aspartate Amino Transf (AST/SGOT) 92 H 82 H Band Neutrophils % 2.0 Basophils # Basophils % Blood Morphology Comment Blood Urea Nitrogen 54 H 58 H Calcium Level 7.6 L 6.9 L Carbon Dioxide Level 26 25 Chloride Level 108 108 Creatine Kinase 490 #H Creatinine 1.53 H 1.28 H Direct Bilirubin 0.00 0.00 Eosinophils # Eosinophils % Globulin 3.60 H 3.20 Glucose Level 189 162 Hematocrit 24.2 L Hemoglobin 8.0 L INR International Normalized Ratio 1.02 Indirect Bilirubin 0.1 0.1 Lymphocytes # 0.4 L Lymphocytes % 4.0 L Magnesium Level 2.2 2.3 Mean Corpuscular Hemoglobin 33.0 Mean Corpuscular Hemoglobin Concent 33.1 Mean Corpuscular Volume 99.8 Mean Platelet Volume 7.5 Monocytes # 0.3 Monocytes % 3.0 Neutrophils # 8.0 H Neutrophils % 91.0 H Nucleated Red Blood Cells # Nucleated Red Blood Cells % 0.0 Phosphorus Level 5.3 H 4.6 Platelet Count 270 Potassium Level 4.1 3.7 Prothrombin Time 13.4 Prothrombin Time Ratio 1.0 Red Blood Count 2.42 L Red Cell Distribution Width 15.3 H Sodium Level 144 141 Total Bilirubin 0.1 L 0.1 L Total Protein 6.8 6.1 White Blood Count 8.8 # Test 05/29/16 08:20 05/29/16 08:46 Activated Partial Thromboplast Time 107.6 *H Basophils # 0.0 Basophils % 0.1 Blood Morphology Comment Eosinophils # 0.0 Eosinophils % 0.0 Hematocrit 22.6 L Hemoglobin 7.6 L Lymphocytes # 1.0 Lymphocytes % 14.2 L Magnesium Level 2.3 Mean Corpuscular Hemoglobin 33.4 H Mean Corpuscular Hemoglobin Concent 33.6 Mean Corpuscular Volume 99.5 Mean Platelet Volume 7.8 Monocytes # 0.6 Monocytes % 8.9 Neutrophils # 5.5 Neutrophils % 76.8 Nucleated Red Blood Cells # 0.0 Nucleated Red Blood Cells % 0.0 Phosphorus Level 3.9 Platelet Count 239 Red Blood Count 2.27 L Red Cell Distribution Width 15.1 H White Blood Count 7.2 Bedside Glucose 157 Medications Medications Current Medications Aspirin (Halfprin) 81 mg DAILY PO Last administered on 05/29/16 10:40; Admin Dose 81 MG; Start 05/27/16 at 09:00 Clopidogrel Bisulfate (plaVIX) 75 mg DAILY PO Last administered on 05/29/16 10:42; Admin Dose 75 MG; Start 05/27/16 at 09:00 Ferrous Sulfate (Ferrous Sulfate (Ec)) 325 mg BID PO Last administered on 05/29 10:42; Admin Dose 325 MG; Start 05/27/16 at 09:00 Fluticasone Propionate (Flonase 0.05% Nasal) 1 spray BID NASAL Last administered on 05/29/16 10:43; Admin Dose 1 SPRAY; Start 05/27/16 at 09:00 Gabapentin (Neurontin) 300 mg TID PO Last administered on 05/29/16 10:42; Admin Dose 300 MG; Start 05/27/16 at 09:00 Guaifenesin/ Dextromethorphan (Robitussin Dm Liquid Cup) 10 ml Q4H PRN PO COUGH ; Start 05/26/16 at 21:30 Montelukast Sodium (Singulair) 10 mg HS PO Last administered on 05/28/16at 21: 55; Admin Dose 10 MG; Start 05/27/16 at 21:00 Oxycodone/ Acetaminophen (Endocet (10/ 325)) 1 tab Q6 PRN PO PAIN; Start 05/26 at 21:30 Salmeterol Xinafoate/ Fluticasone (Advair 500/50 Diskus) 1 inh BID INH Last administered on 05/29/16 10:34; Admin Dose 1 INH; Start 05/27/16 at 09:00 Acetaminophen (Tylenol Tab) 650 mg Q4H PRN PO pain/fever; Start 05/26/16 at 21 :30 Ondansetron HCl (Zofran Inj) 4 mg Q4H PRN IV nausea; Start 05/26/16 at 21:30 Guaifenesin/ Dextromethorphan (Mucinex Dm) 1 tab BID PO Last administered on 10:42; Admin Dose 1 TAB; Start 05/27/16 at 09:00 Fish Oil (Fish Oil) 1,000 mg DAILY PO Last administered on 12/16/16at 10:42; Admin Dose 1,000 MG; Start 05/27/16 at 09:00 Atorvastatin Calcium (Lipitor) 80 mg DAILY@21 PO Last administered on at 21:55; Admin Dose 80 MG; Start 05/27/16 at 00:00 Tramadol HCl (Ultram) 50 mg Q6H PRN PO PAIN Last administered on 05/28/16at 08: 19; Admin Dose 50 MG; Start 05/27/16 at 14:00 Miscellaneous Information 1 ea NOTE XX ; Start 05/27/16 at 18:30 Glucose (Glutose) 15 gm Q15M PRN PO DECREASED GLUCOSE; Start 05/27/16 at 18:30 Glucose (Glutose) 22.5 gm Q15M PRN PO DECREASED GLUCOSE; Start 05/27/16 at 18: 30 Dextrose (D50w Syringe) 25 ml Q15M PRN IV DECREASED GLUCOSE; Start 05/27/16 at 18:30 Dextrose (D50w Syringe) 50 ml Q15M PRN IV DECREASED GLUCOSE; Start 05/27/16 at 18:30 Glucagon (Glucagen) 1 mg Q15M PRN IM DECREASED GLUCOSE; Start 05/27/16 at 18: 30 Glucose (Glutose) 15 gm Q15M PRN BUCCAL DECREASED GLUCOSE; Start 05/27/16 at 18:30 IV Flush (NS 10 ml) 10 ml PRN PRN IV IV PROTOCOL; Start 05/28/16 at 17:30 Prednisone (Prednisone) 40 mg DAILY PO ; Start 05/30/16 at 09:00 Calos Peralta DO May 29, 2016 12:19
[2016-05-29 13:29] LABS: IRON 56 ug/dl (35-150)
[2016-05-29 13:38] LABS: TOTAL IRON BINDING CAPACITY 219 ug/dl (241-421)
[2016-05-29 15:22] LABS: HEMATOCRIT 22.7 % (42.0-52.0); HEMOGLOBIN 7.6 g/dl (14.0-18.0)
[2016-05-29] MEDS: traMADol 50 MG TAB PO PRN (19:01)
[2016-05-29] MEDS ORDERED: FUROSEMIDE 20 MG INJ IV ONE (20:30)
[2016-05-29] MEDS: MONTELUKAST 10 MG TAB PO SCH (20:39)
[2016-05-29] MEDS: ATORVASTATIN 80 MG TAB PO SCH (20:39)
--- NOTE | 2016-05-29 21:00 | PDOCDIS ---
Discharge Instructions CONDITION Patient Condition: Fair HOME CARE INSTRUCTIONS: Special Diet: 70Gm Protein, 2 Gms Sodium 2 Gms Potassium diet ACTIVITY: Activity Restrictions: No Restrictions RICHIE SWEET May 29, 2016 21:[address] Luis within 1 to 2 weeks RICHIE SWEET May 29, 2016 21:00
[2016-05-30] VITALS (10 sets, daily range): BP systolic 114–135; BP diastolic 57–70; PULSE 70–98; RESP 15–20
[2016-05-30] MEDS: ALBUTEROL/IPRATROPIUM (NEB) 3 ML AMP HHN SCH ×4 (01:41→20:17)
[2016-05-30] MEDS: traMADol 50 MG TAB PO PRN ×2 (05:07→15:40)
[2016-05-30] MEDS: INSULIN ASPART [NOVOLOG] 3 ML PEN SC SCH ×4 (08:00→21:19)
--- NOTE | 2016-05-30 09:38 | CONS ---
Date/Time of Note Date/Time of Note DATE: 05/30/16 TIME: 09:37 Assessment/Plan Assessment/Plan Chief Complaint/Hosp Course Non-ST elevation [place] Acute kidney injury, improving Cardiomyopathy ejection fraction 35% Acute blood loss anemia Mechanical fall with rib fractures and right lower extremity trauma Mild to moderate coronary artery disease based on catheterization in October 2014. Aortic stenosis, status post transcatheter aortic valve replacement in January 2015. Chronic obstructive pulmonary disease on home oxygen. Problems: Additional Assessment/Plan 1) off heparin gtt 2) renal function improved 3) continue current meds 4) cardiac cath when improved Consultation Date/Type/Reason Admit Date/Time May 26, 2016 at 19:17 Initial Consult Date 05/28/16 Type of Consultation: cv 24 HR Interval Summary Free Text/Dictation reports right leg pain at site of hematoma, no chest pain, sob at baseline Detailed Summary Respiratory: shortness of breath Cardiovascular: no complaints Gastrointestinal: no complaints Musculoskeletal: other (RLE pain), restricted range of motion Skin: bruising, laceration Neurologic: no complaints Endocrine: no complaints Lymphatic: no complaints Exam/Review of Systems Vital Signs Vitals Vital Signs Date Time Temp Pulse Resp B/P Pulse Ox O2 Delivery O2 Flow Rate FiO2 05/30/16 09:34 86 18 95 Nasal Cannula 2.0 05/30/16 04:00 97.6 121/64 Intake and Output 05/29/16 05/29/16 05/30/16 15:00 23:00 07:00 Intake Total 780 ml Output Total 900 ml Balance -120 ml Results Result Diagram: 05/29/16 1505 05/29/16 0505 Results 24 hrs Laboratory Tests Test 05/29/16 12:39 05/29/16 14:05 05/29/16 15:05 05/29/16 18:16 Bedside Glucose 156 285 H Iron Level 56 Percent Iron Saturation 26 Total Iron Binding Capacity 219 L Hematocrit 22.7 L Hemoglobin 7.6 L Test 05/29/16 21:13 05/30/16 01:46 05/30/16 03:00 05/30/16 08:18 Bedside Glucose 198 144 114 Urine Eosinophils % 0.0 Urine Protein/Creatinine Ratio Urine Random Creatinine 45.06 Urine Random Sodium 83 Urine Total Protein Medications Medications Current Medications Aspirin (Halfprin) 81 mg DAILY PO Last administered on 05/29/16at 10:40; Admin Dose 81 MG; Start 05/27/16 at 09:00 Clopidogrel Bisulfate (plaVIX) 75 mg DAILY PO Last administered on 05/29/16 10:42; Admin Dose 75 MG; Start 05/27/16 at 09:00 Ferrous Sulfate (Ferrous Sulfate (Ec)) 325 mg BID PO Last administered on 05/29 20:39; Admin Dose 325 MG; Start 05/27/16 at 09:00 Fluticasone Propionate (Flonase 0.05% Nasal) 1 spray BID NASAL Last administered on 05/29/16 20:39; Admin Dose 1 SPRAY; Start 05/27/16 at 09:00 Gabapentin (Neurontin) 300 mg TID PO Last administered on 05/29/16 20:39; Admin Dose 300 MG; Start 05/27/16 at 09:00 Guaifenesin/ Dextromethorphan (Robitussin Dm Liquid Cup) 10 ml Q4H PRN PO COUGH ; Start 05/26/16 at 21:30 Montelukast Sodium (Singulair) 10 mg HS PO Last administered on 05/29/16 20: 39; Admin Dose 10 MG; Start 05/27/16 at 21:00 Oxycodone/ Acetaminophen (Endocet (10/ 325)) 1 tab Q6 PRN PO PAIN; Start 05/26 at 21:30 Salmeterol Xinafoate/ Fluticasone (Advair 500/50 Diskus) 1 inh BID INH Last administered on 05/29/16 20:39; Admin Dose 1 INH; Start 05/27/16 at 09:00 Acetaminophen (Tylenol Tab) 650 mg Q4H PRN PO pain/fever; Start 05/26/16 at 21 :30 Ondansetron HCl (Zofran Inj) 4 mg Q4H PRN IV nausea; Start 05/26/16 at 21:30 Guaifenesin/ Dextromethorphan (Mucinex Dm) 1 tab BID PO Last administered on 20:39; Admin Dose 1 TAB; Start 05/27/16 at 09:00 Fish Oil (Fish Oil) 1,000 mg DAILY PO Last administered on 05/29/16 10:42; Admin Dose 1,000 MG; Start 05/27/16 at 09:00 Atorvastatin Calcium (Lipitor) 80 mg DAILY@21 PO Last administered on at 20:39; Admin Dose 80 MG; Start 05/27/16 at 00:00 Tramadol HCl (Ultram) 50 mg Q6H PRN PO PAIN Last administered on 05/30/16at 05: 07; Admin Dose 50 MG; Start 05/27/16 at 14:00 Miscellaneous Information 1 ea NOTE XX ; Start 05/27/16 at 18:30 Glucose (Glutose) 15 gm Q15M PRN PO DECREASED GLUCOSE; Start 05/27/16 at 18:30 Glucose (Glutose) 22.5 gm Q15M PRN PO DECREASED GLUCOSE; Start 05/27/16 at 18: 30 Dextrose (D50w Syringe) 25 ml Q15M PRN IV DECREASED GLUCOSE; Start 05/27/16 at 18:30 Dextrose (D50w Syringe) 50 ml Q15M PRN IV DECREASED GLUCOSE; Start 05/27/16 at 18:30 Glucagon (Glucagen) 1 mg Q15M PRN IM DECREASED GLUCOSE; Start 05/27/16 at 18: 30 Glucose (Glutose) 15 gm Q15M PRN BUCCAL DECREASED GLUCOSE; Start 05/27/16 at 18:30 IV Flush (NS 10 ml) 10 ml PRN PRN IV IV PROTOCOL; Start 05/28/16 at 17:30 Prednisone (Prednisone) 40 mg DAILY PO ; Start 05/30/16 at 09:00 Heparin Sodium (Porcine) (Heparin (5000 Units/0.5 ml)) 5,000 unit Q12 SC ; Start 05/30/16 at 09:00 MARC SIGALA MD May 30, 2016 09:38
[2016-05-30] MEDS: SALMETEROL/FLUTICASONE 500/50 INHA INH SCH ×2 (10:25→21:12)
[2016-05-30] MEDS: FLUTICASONE 0.05% 16 GM NAS SPRAY NASAL SCH ×2 (10:25→21:12)
[2016-05-30] MEDS: GUAIFENESIN/DM (SR) TAB PO SCH ×2 (10:25→21:13)
[2016-05-30] MEDS: FISH OIL 1,000 MG CAP PO SCH (10:26)
[2016-05-30] MEDS: predniSONE 20 MG TAB PO SCH (10:26)
[2016-05-30] MEDS: CLOPIDOGREL 75 MG TAB PO SCH (10:26)
[2016-05-30] MEDS: FERROUS SULFATE (EC) 325 MG TAB PO SCH ×2 (10:26→21:13)
[2016-05-30] MEDS: GABAPENTIN 300 MG CAP PO SCH ×3 (10:26→21:13)
[2016-05-30] MEDS: ASPIRIN (EC) 81 MG TAB PO SCH (10:26)
[2016-05-30] MEDS: HEPARIN 5,000 UNIT/0.5 ML SYG SC SCH ×2 (10:52→21:19)
[2016-05-30 11:14] LABS: BASOPHILS % 0.4 % (0.0-2.0); HEMATOCRIT 28.4 % (42.0-52.0); HEMOGLOBIN 9.6 g/dl (14.0-18.0); LYMPHOCYTES # 1.4 10^3/ul (0.8-2.9); LYMPHOCYTES % 17.1 % (15.0-51.0); MEAN CORPUSCULAR HEMOGLOBIN 32.4 pg (29.0-33.0); MEAN CORPUSCULAR HGB CONC 33.8 g/dl (32.0-37.0); MEAN CORPUSCULAR VOLUME 95.8 fl (82.0-101.0); MEAN PLATELET VOLUME 7.9 fl (7.4-10.4); MONOCYTE # 0.5 10^3/ul (0.3-0.9); MONOCYTES % 5.6 % (0.0-11.0); NEUTROPHIL # 6.4 10^3/ul (1.6-7.5); NEUTROPHILS % 76.9 % (39.0-77.0); PLATELET COUNT 223 10^3/UL (140-440); RED BLOOD COUNT 2.96 10^6/ul (4.70-6.10); RED CELL DISTRIBUTION WIDTH 17.7 % (11.5-14.5); UNCORRECTED WBC 8.3 10^3/ul (4.8-10.8); WHITE BLOOD COUNT 8.3 10^3/ul (4.8-10.8)
[2016-05-30 11:21] LABS: ALBUMIN 3.1 g/dl (3.3-4.9)
[2016-05-30 11:22] LABS: POTASSIUM 3.2 mmol/L (3.5-5.1)
[2016-05-30 11:24] LABS: BILIRUBIN,INDIRECT 0.6 mg/dl (0-1.1); BILIRUBIN,TOTAL 0.6 mg/dl (0.2-1.3); CREATININE 0.84 mg/dl (0.61-1.24)
[2016-05-30 11:25] LABS: ALBUMIN/GLOBULIN RATIO 0.91; CALCIUM 7.3 mg/dl (8.4-10.2); IRON 67 ug/dl (35-150); TOTAL PROTEIN 6.5 g/dl (6.1-8.1)
[2016-05-30 11:29] LABS: CONDITION 1; LH ANALYZER COMMENTS 1
[2016-05-30 11:35] LABS: TOTAL IRON BINDING CAPACITY 229 ug/dl (241-421)
[2016-05-30 12:43] LABS: MAGNESIUM 2.3 mg/dl (1.7-2.5); PHOSPHORUS 2.3 mg/dl (2.5-4.9)
--- NOTE | 2016-05-30 13:07 | PN ---
Date/Time of Note Date/Time of Note DATE: 05/30/16 TIME: 13:06 Assessment/Plan VTE Prophylaxis VTE Prophylaxis Intervention: LMWH Lines/Catheters IV Catheter Type (from Nrsg): PICC Line Central line still needed: Yes (critically ill patient) Urinary Cath still in place: No Assessment/Plan Assessment/Plan [facility] 1. 80 yo man well-known to me from previous hospitalization presenting with NSTEMI, s/p TAVR and cardiomyopathy. Troponin peaked at 13.3ng/ml four days ago. Echo with EF down to 30%. Question raised of a Takotsubo cardiomyopathy. * Repeat angiogram pending recovery of renal function, which is stable today following blood transfusion yesterday, but not improved. * Continue on 2L per nasal cannula * Elevated PTT on heparin drip; suspended at the moment. 2. COPD, O2 dependent. Congested-sounding on exam, with moderate diffuse rhonchi. * Continue prednisone at 40 mg daily with taper * Continue nebulizers, with Advair and Spiriva * PA/lateral CXR 3. Acute on chronic kidney disease. Renal function recovering, with hypokalemia and hypocalcemia * Potassium supplementation * Cautious hydration 4. S/p fall last weekend with right leg hematoma, right arm ecchymosis, and right rib fractures. Hematomas exacerbated by heparin gtt. CT shows no muscular involvement of the right leg. * Pain control with Percocet prn and Tramadol prn * No indication for surgical evacuation. 5. Acute on chronic anemia with hematomas and concerns for ongoing blood loss * CT of the right leg, as noted above. * Defer additional transfusion, with stable hematocrit 6. Chronic back pain with acute component now with rib fractures * Percocet and tramadol as needed. 7. Hypertension * Holding Diovan secondary to low BP 8. Congestive heart failure, systolic dysfunction EF 30 % on echo yesterday. 9. Temporal arteritis. No aortic root dilatation on echo. * Continue prednisone at current dose (40mg) to assist breathing. 10. Previous history of transient ischemic attack. Patient's mental status is stable and at baseline. 11. Prophylaxis: On heparin gtt with NSTEMI, PPI for GI ppx while on steroids especially 12. Disposition: CT RLE non contrast and surgical eval due too concerns for ongoing bleeding. Angiogram when recovery of renal function Jose Welch MD PhD [phone] Exam/Review of Systems Vital Signs Vitals Vital Signs Date Time Temp Pulse Resp B/P Pulse Ox O2 Delivery O2 Flow Rate FiO2 05/30/16 12:47 98 05/30/16 11:55 98.7 20 130/67 97 05/30/16 09:34 Nasal Cannula 2.0 Intake and Output 05/29/16 05/29/16 05/30/16 15:00 23:00 07:00 Intake Total 780 ml Output Total 900 ml Balance -120 ml Exam Constitutional: alert, oriented, well developed Respiratory: clear to auscultation, diminished breath sounds (bases bilaterally ), normal air movement Cardiovascular: nl pulses, regular rate and rhythm Gastrointestinal: non-tender, soft Musculoskeletal: other (large hematoma RLE ) Extremities: normal pulses 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: [employer] II-XII intact, nl mental status, nl speech Results Result Diagram: 05/30/16 1045 05/30/16 1045 Results 24 hrs Laboratory Tests Test 05/29/16 14:05 05/29/16 15:05 05/29/16 18:16 05/29/16 21:13 Iron Level 56 Percent Iron Saturation 26 Total Iron Binding Capacity 219 L Hematocrit 22.7 L Hemoglobin 7.6 L Bedside Glucose 285 H 198 Test 05/30/16 01:46 05/30/16 03:00 05/30/16 08:18 05/30/16 10:45 Bedside Glucose 144 114 Urine Eosinophils % 0.0 Urine Protein/Creatinine Ratio Urine Random Creatinine 45.06 Urine Random Sodium 83 Urine Total Protein Alanine Aminotransferase (ALT/SGPT) 45 Albumin 3.1 L Albumin/Globulin Ratio 0.91 Alkaline Phosphatase 45 Anion Gap 9 Aspartate Amino Transf (AST/SGOT) 49 H Basophils # 0.0 Basophils % 0.4 Blood Morphology Comment Blood Urea Nitrogen 43 #H Calcium Level 7.3 L Carbon Dioxide Level 29 Chloride Level 107 Creatinine 0.84 Direct Bilirubin 0.00 Eosinophils # 0.0 Eosinophils % 0.0 Globulin 3.40 H Glucose Level 103 # Hematocrit 28.4 #L Hemoglobin 9.6 #L Indirect Bilirubin 0.6 Iron Level 67 Lymphocytes # 1.4 Lymphocytes % 17.1 Magnesium Level 2.3 Mean Corpuscular Hemoglobin 32.4 Mean Corpuscular Hemoglobin Concent 33.8 Mean Corpuscular Volume 95.8 Mean Platelet Volume 7.9 Monocytes # 0.5 Monocytes % 5.6 Neutrophils # 6.4 Neutrophils % 76.9 Nucleated Red Blood Cells # 0.0 Nucleated Red Blood Cells % 0.0 Percent Iron Saturation 29 Phosphorus Level 2.3 #L Platelet Count 223 Potassium Level 3.2 L Red Blood Count 2.96 #L Red Cell Distribution Width 17.7 H Sodium Level 142 Total Bilirubin 0.6 Total Iron Binding Capacity 229 L Total Protein 6.5 White Blood Count 8.3 Test 05/30/16 12:38 Bedside Glucose 159 Medications Medications Current Medications Aspirin (Halfprin) 81 mg DAILY PO Last administered on 05/30/16 10:26; Admin Dose 81 MG; Start 05/27/16 at 09:00 Clopidogrel Bisulfate (plaVIX) 75 mg DAILY PO Last administered on 05/30/16 10:26; Admin Dose 75 MG; Start 05/27/16 at 09:00 Ferrous Sulfate (Ferrous Sulfate (Ec)) 325 mg BID PO Last administered on 05/30 10:26; Admin Dose 325 MG; Start 05/27/16 at 09:00 Fluticasone Propionate (Flonase 0.05% Nasal) 1 spray BID NASAL Last administered on 05/30/16at 10:25; Admin Dose 1 SPRAY; Start 05/27/16 at 09:00 Gabapentin (Neurontin) 300 mg TID PO Last administered on 05/30/16 10:26; Admin Dose 300 MG; Start 05/27/16 at 09:00 Guaifenesin/ Dextromethorphan (Robitussin Dm Liquid Cup) 10 ml Q4H PRN PO COUGH ; Start 05/26/16 at 21:30 Montelukast Sodium (Singulair) 10 mg HS PO Last administered on 05/29/16at 20: 39; Admin Dose 10 MG; Start 05/27/16 at 21:00 Oxycodone/ Acetaminophen (Endocet (10/ 325)) 1 tab Q6 PRN PO PAIN; Start 05/26 at 21:30 Salmeterol Xinafoate/ Fluticasone (Advair 500/50 Diskus) 1 inh BID INH Last administered on 05/30/16at 10:25; Admin Dose 1 INH; Start 05/27/16 at 09:00 Acetaminophen (Tylenol Tab) 650 mg Q4H PRN PO pain/fever; Start 05/26/16 at 21 :30 Ondansetron HCl (Zofran Inj) 4 mg Q4H PRN IV nausea; Start 05/26/16 at 21:30 Guaifenesin/ Dextromethorphan (Mucinex Dm) 1 tab BID PO Last administered on at 10:25; Admin Dose 1 TAB; Start 05/27/16 at 09:00 Fish Oil (Fish Oil) 1,000 mg DAILY PO Last administered on 05/30/16at 10:26; Admin Dose 1,000 MG; Start 05/27/16 at 09:00 Atorvastatin Calcium (Lipitor) 80 mg DAILY@21 PO Last administered on at 20:39; Admin Dose 80 MG; Start 05/27/16 at 00:00 Tramadol HCl (Ultram) 50 mg Q6H PRN PO PAIN Last administered on 05/30/16at 05: 07; Admin Dose 50 MG; Start 05/27/16 at 14:00 Miscellaneous Information 1 ea NOTE XX ; Start 05/27/16 at 18:30 Glucose (Glutose) 15 gm Q15M PRN PO DECREASED GLUCOSE; Start 05/27/16 at 18:30 Glucose (Glutose) 22.5 gm Q15M PRN PO DECREASED GLUCOSE; Start 05/27/16 at 18: 30 Dextrose (D50w Syringe) 25 ml Q15M PRN IV DECREASED GLUCOSE; Start 05/27/16 at 18:30 Dextrose (D50w Syringe) 50 ml Q15M PRN IV DECREASED GLUCOSE; Start 05/27/16 at 18:30 Glucagon (Glucagen) 1 mg Q15M PRN IM DECREASED GLUCOSE; Start 05/27/16 at 18: 30 Glucose (Glutose) 15 gm Q15M PRN BUCCAL DECREASED GLUCOSE; Start 05/27/16 at 18:30 IV Flush (NS 10 ml) 10 ml PRN PRN IV IV PROTOCOL; Start 05/28/16 at 17:30 Prednisone (Prednisone) 40 mg DAILY PO Last administered on 05/30/16at 10:26; Admin Dose 40 MG; Start 05/30/16 at 09:00 Heparin Sodium (Porcine) (Heparin (5000 Units/0.5 ml)) 5,000 unit Q12 SC Last administered on 05/30/16at 10:52; Admin Dose 5,000 UNIT; Start 05/30/16 at 09: 00 JOAQUIN WELCH M.D. May 30, 2016 13:07
--- NOTE | 2016-05-30 14:03 | CONS ---
Date/Time of Note Date/Time of Note DATE: 05/30/16 TIME: 14:01 Assessment/Plan Assessment/Plan Chief Complaint/Hosp Course - Acute Kidney Injury post Contrast - CKD ( ? HTN Nephrosclerosis ) - Acute CO - Hyperkalemia - ? Rhabdomyolysis - COPD - Hx of Temporal Arteritis - CAD/CHF PLAN: Improving Creatinine & ATN Renal back to baseline Post ATN Hypokalemia Continue with Monitoring renal function EPOGEN Check Iron status OK for Cardiac Angiogram per cardiology plan Still will give Mucomyst THANK YOU Cu[facility] SWEET Problems: Consultation Date/Type/Reason Admit Date/Time May 26, 2016 at 19:17 Initial Consult Date 05/28/16 Type of Consultation: NEPHROLOGY Reason for Consultation Acute Kidney Injury Post CT Angiogram 24 HR Interval Summary Constitutional: improved, no complaints Exam/Review of Systems Vital Signs Vitals Vital Signs Date Time Temp Pulse Resp B/P Pulse Ox O2 Delivery O2 Flow Rate FiO2 05/30/16 12:47 98 05/30/16 11:55 98.7 20 130/67 97 05/30/16 09:34 Nasal Cannula 2.0 Intake and Output 05/29/16 05/29/16 05/30/16 14:59 22:59 06:59 Intake Total 780 ml Output Total 900 ml Balance -120 ml Exam Constitutional: oriented Psych: no complaints Head: normocephalic Neck: supple Respiratory: clear to auscultation Cardiovascular: systolic murmur Gastrointestinal: soft Results Result Diagram: 05/30/16 1045 05/30/16 1045 Results 24 hrs Laboratory Tests Test 05/29/16 14:05 05/29/16 15:05 05/29/16 18:16 05/29/16 21:13 Iron Level 56 Percent Iron Saturation 26 Total Iron Binding Capacity 219 L Hematocrit 22.7 L Hemoglobin 7.6 L Bedside Glucose 285 H 198 Test 05/30/16 01:46 05/30/16 03:00 05/30/16 08:18 05/30/16 10:45 Bedside Glucose 144 114 Urine Eosinophils % 0.0 Urine Protein/Creatinine Ratio Urine Random Creatinine 45.06 Urine Random Sodium 83 Urine Total Protein Alanine Aminotransferase (ALT/SGPT) 45 Albumin 3.1 L Albumin/Globulin Ratio 0.91 Alkaline Phosphatase 45 Anion Gap 9 Aspartate Amino Transf (AST/SGOT) 49 H Basophils # 0.0 Basophils % 0.4 Blood Morphology Comment Blood Urea Nitrogen 43 #H Calcium Level 7.3 L Carbon Dioxide Level 29 Chloride Level 107 Creatinine 0.84 Direct Bilirubin 0.00 Eosinophils # 0.0 Eosinophils % 0.0 Globulin 3.40 H Glucose Level 103 # Hematocrit 28.4 #L Hemoglobin 9.6 #L Indirect Bilirubin 0.6 Iron Level 67 Lymphocytes # 1.4 Lymphocytes % 17.1 Magnesium Level 2.3 Mean Corpuscular Hemoglobin 32.4 Mean Corpuscular Hemoglobin Concent 33.8 Mean Corpuscular Volume 95.8 Mean Platelet Volume 7.9 Monocytes # 0.5 Monocytes % 5.6 Neutrophils # 6.4 Neutrophils % 76.9 Nucleated Red Blood Cells # 0.0 Nucleated Red Blood Cells % 0.0 Percent Iron Saturation 29 Phosphorus Level 2.3 #L Platelet Count 223 Potassium Level 3.2 L Red Blood Count 2.96 #L Red Cell Distribution Width 17.7 H Sodium Level 142 Total Bilirubin 0.6 Total Iron Binding Capacity 229 L Total Protein 6.5 White Blood Count 8.3 Test 05/30/16 12:38 Bedside Glucose 159 Medications Medications Current Medications Aspirin (Halfprin) 81 mg DAILY PO Last administered on 05/30/16at 10:26; Admin Dose 81 MG; Start 05/27/16 at 09:00 Clopidogrel Bisulfate (plaVIX) 75 mg DAILY PO Last administered on 05/30/16at 10:26; Admin Dose 75 MG; Start 05/27/16 at 09:00 Ferrous Sulfate (Ferrous Sulfate (Ec)) 325 mg BID PO Last administered on 05/30at 10:26; Admin Dose 325 MG; Start 05/27/16 at 09:00 Fluticasone Propionate (Flonase 0.05% Nasal) 1 spray BID NASAL Last administered on 05/30/16at 10:25; Admin Dose 1 SPRAY; Start 05/27/16 at 09:00 Gabapentin (Neurontin) 300 mg TID PO Last administered on 05/30/16at 10:26; Admin Dose 300 MG; Start 05/27/16 at 09:00 Guaifenesin/ Dextromethorphan (Robitussin Dm Liquid Cup) 10 ml Q4H PRN PO COUGH ; Start 05/26/16 at 21:30 Montelukast Sodium (Singulair) 10 mg HS PO Last administered on 05/29/16at 20: 39; Admin Dose 10 MG; Start 05/27/16 at 21:00 Oxycodone/ Acetaminophen (Endocet (10/ 325)) 1 tab Q6 PRN PO PAIN; Start 05/26 at 21:30 Salmeterol Xinafoate/ Fluticasone (Advair 500/50 Diskus) 1 inh BID INH Last administered on 05/30/16at 10:25; Admin Dose 1 INH; Start 05/27/16 at 09:00 Acetaminophen (Tylenol Tab) 650 mg Q4H PRN PO pain/fever; Start 05/26/16 at 21 :30 Ondansetron HCl (Zofran Inj) 4 mg Q4H PRN IV nausea; Start 05/26/16 at 21:30 Guaifenesin/ Dextromethorphan (Mucinex Dm) 1 tab BID PO Last administered on at 10:25; Admin Dose 1 TAB; Start 05/27/16 at 09:00 Fish Oil (Fish Oil) 1,000 mg DAILY PO Last administered on 05/30/16at 10:26; Admin Dose 1,000 MG; Start 05/27/16 at 09:00 Atorvastatin Calcium (Lipitor) 80 mg DAILY@21 PO Last administered on at 20:39; Admin Dose 80 MG; Start 05/27/16 at 00:00 Tramadol HCl (Ultram) 50 mg Q6H PRN PO PAIN Last administered on 05/30/16at 05: 07; Admin Dose 50 MG; Start 05/27/16 at 14:00 Miscellaneous Information 1 ea NOTE XX ; Start 05/27/16 at 18:30 Glucose (Glutose) 15 gm Q15M PRN PO DECREASED GLUCOSE; Start 05/27/16 at 18:30 Glucose (Glutose) 22.5 gm Q15M PRN PO DECREASED GLUCOSE; Start 05/27/16 at 18: 30 Dextrose (D50w Syringe) 25 ml Q15M PRN IV DECREASED GLUCOSE; Start 05/27/16 at 18:30 Dextrose (D50w Syringe) 50 ml Q15M PRN IV DECREASED GLUCOSE; Start 05/27/16 at 18:30 Glucagon (Glucagen) 1 mg Q15M PRN IM DECREASED GLUCOSE; Start 05/27/16 at 18: 30 Glucose (Glutose) 15 gm Q15M PRN BUCCAL DECREASED GLUCOSE; Start 05/27/16 at 18:30 IV Flush (NS 10 ml) 10 ml PRN PRN IV IV PROTOCOL; Start 05/28/16 at 17:30 Prednisone (Prednisone) 40 mg DAILY PO Last administered on 05/30/16at 10:26; Admin Dose 40 MG; Start 05/30/16 at 09:00 Heparin Sodium (Porcine) (Heparin (5000 Units/0.5 ml)) 5,000 unit Q12 SC Last administered on 05/30/16at 10:52; Admin Dose 5,000 UNIT; Start 05/30/16 at 09: 00 Potassium Chloride (Klor-Con 20) 20 meq BID PO ; Start 05/30/16 at 14:00 PATT FARRELL MD May 30, 2016 14:03
[2016-05-30] MEDS: POTASSIUM CHLORIDE (SR) 20 MEQ TAB PO SCH ×2 (15:27→21:12)
[2016-05-30] MEDS: MONTELUKAST 10 MG TAB PO SCH (21:12)
[2016-05-30] MEDS: ATORVASTATIN 80 MG TAB PO SCH (21:12)
[2016-05-31] VITALS (27 sets, daily range): BP systolic 97–155; BP diastolic 58–105; PULSE 73–139; RESP 18–87
[2016-05-31] MEDS: ALBUTEROL/IPRATROPIUM (NEB) 3 ML AMP HHN SCH ×4 (01:40→19:51)
[2016-05-31] MEDS: traMADol 50 MG TAB PO PRN ×2 (05:22→20:30)
[2016-05-31 06:38] LABS: BASOPHILS % 0.2 % (0.0-2.0); HEMATOCRIT 28.7 % (42.0-52.0); HEMOGLOBIN 9.7 g/dl (14.0-18.0); LYMPHOCYTES # 1.1 10^3/ul (0.8-2.9); MEAN CORPUSCULAR HEMOGLOBIN 32.3 pg (29.0-33.0); MEAN CORPUSCULAR HGB CONC 33.8 g/dl (32.0-37.0); MEAN CORPUSCULAR VOLUME 95.7 fl (82.0-101.0); MONOCYTE # 0.5 10^3/ul (0.3-0.9); MONOCYTES % 7.1 % (0.0-11.0); NEUTROPHIL # 5.6 10^3/ul (1.6-7.5); NEUTROPHILS % 77.7 % (39.0-77.0); PLATELET COUNT 212 10^3/UL (140-440); RED CELL DISTRIBUTION WIDTH 17.7 % (11.5-14.5); UNCORRECTED WBC 7.2 10^3/ul (4.8-10.8); WHITE BLOOD COUNT 7.2 10^3/ul (4.8-10.8)
[2016-05-31 06:39] LABS: MAGNESIUM 2.4 mg/dl (1.7-2.5)
[2016-05-31 06:40] LABS: POTASSIUM 3.9 mmol/L (3.5-5.1)
[2016-05-31 06:42] LABS: CREATININE 0.72 mg/dl (0.61-1.24)
[2016-05-31 06:43] LABS: CALCIUM 7.6 mg/dl (8.4-10.2)
[2016-05-31 06:50] LABS: CONDITION 1; LH ANALYZER COMMENTS 1
[2016-05-31] MEDS: INSULIN ASPART [NOVOLOG] 3 ML PEN SC SCH ×4 (08:00→20:36)
[2016-05-31] MEDS: HEPARIN 5,000 UNIT/0.5 ML SYG SC SCH ×2 (09:00→20:30)
[2016-05-31] MEDS: GABAPENTIN 300 MG CAP PO SCH ×3 (09:00→20:26)
[2016-05-31] MEDS: GUAIFENESIN/DM (SR) TAB PO SCH ×2 (09:00→20:26)
[2016-05-31] MEDS: FLUTICASONE 0.05% 16 GM NAS SPRAY NASAL SCH ×2 (09:00→20:25)
[2016-05-31] MEDS: FISH OIL 1,000 MG CAP PO SCH (09:00)
[2016-05-31] MEDS: FERROUS SULFATE (EC) 325 MG TAB PO SCH ×2 (09:00→20:25)
[2016-05-31] MEDS: POTASSIUM CHLORIDE (SR) 20 MEQ TAB PO SCH ×2 (09:00→20:25)
[2016-05-31] MEDS: SALMETEROL/FLUTICASONE 500/50 INHA INH SCH ×2 (09:00→21:00)
[2016-05-31 09:22] LABS: TROPONIN-I 3.87 ng/ml (0.00-0.12)
[2016-05-31] MEDS ORDERED: FUROSEMIDE 20 MG INJ ONE ×2 (10:39→10:43)
[2016-05-31] MEDS ORDERED: FUROSEMIDE 20 MG INJ IV ONE ×2 (11:00)
--- NOTE | 2016-05-31 11:47 | RADRPT ---
PROCEDURE: XR Chest. CLINICAL INDICATION: Shortness of breath. TECHNIQUE: Single frontal view. COMPARISON: 05/28/2016. FINDINGS: The right arm PICC line tip is in the superior vena cava. There is bilateral patchy pulmonary air s pace disease consistent with pulmonary edema or bilateral multifocal pneumonia, slightly worse than seen previously. The heart is enlarged. There is calcification in the aorta consistent with atherosclerosis. There is no pleural effusion. There is no pneumothorax. IMPRESSION: 1. Right arm PICC line. 2. Worse appearance of the lungs. RPTAT: QQ .Oscar Jackson MD, MD Date Time Electronically viewed and signed by .Oscar Jackson MD, MD on 05/31/2016 11:47 .R/
--- NOTE | 2016-05-31 13:35 | CONS ---
Date/Time of Note Date/Time of Note DATE: 05/31/16 TIME: 13:32 Assessment/Plan Assessment/Plan Additional Assessment/Plan Non-ST elevation [place] Respiratory Failure Acute Decompensated Systolic CHF Acute kidney injury, improving Cardiomyopathy ejection fraction 35% Acute blood loss anemia Mechanical fall with rib fractures and right lower extremity trauma Mild to moderate coronary artery disease based on catheterization in October 2014. Aortic stenosis, status post transcatheter aortic valve replacement in January 2015. Chronic obstructive pulmonary disease on home oxygen. -pt with increased pulm congestion on cxr, worsening sob, will give 1 dose Lasix , BiPap, ICU transfer. Consultation Date/Type/Reason Admit Date/Time May 26, 2016 at 19:17 Type of Consultation: cv 24 HR Interval Summary Free Text/Dictation Pt seen this am, c/o woersening sob, [employer] called, feels better on increased O2, no cp Exam/Review of Systems Vital Signs Vitals Vital Signs Date Time Temp Pulse Resp B/P Pulse Ox O2 Delivery O2 Flow Rate FiO2 05/31/16 12:16 97.9 105 23 155/80 93 05/31/16 10:45 30 05/31/16 09:00 Nasal Cannula 2.0 Intake and Output 05/30/16 05/30/16 05/31/16 14:59 22:59 06:59 Intake Total 500 ml 600 ml Output Total 300 ml 400 ml Balance 200 ml 200 ml Exam dyspneic Constitutional: alert, oriented Neck: supple Respiratory: crackles/rales, labored breathing Cardiovascular: other (s1s2), regular rate and rhythm Gastrointestinal: bowel sounds, non-tender, soft Extremities: edema Results Result Diagram: 05/31/16 0555 05/31/16 0555 Results 24 hrs Laboratory Tests Test 05/30/16 17:44 05/30/16 21:16 05/31/16 05:55 05/31/16 10:38 Bedside Glucose 219 183 128 Anion Gap 10 Basophils # 0.0 Basophils % 0.2 Blood Morphology Comment Blood Urea Nitrogen 34 H Calcium Level 7.6 L Carbon Dioxide Level 30 Chloride Level 108 Creatinine 0.72 Eosinophils # 0.0 Eosinophils % 0.0 Glucose Level 119 Hematocrit 28.7 L Hemoglobin 9.7 L Lymphocytes # 1.1 Lymphocytes % 15.0 Magnesium Level 2.4 Mean Corpuscular Hemoglobin 32.3 Mean Corpuscular Hemoglobin Concent 33.8 Mean Corpuscular Volume 95.7 Mean Platelet Volume 8.0 Monocytes # 0.5 Monocytes % 7.1 Neutrophils # 5.6 Neutrophils % 77.7 H Nucleated Red Blood Cells # 0.0 Nucleated Red Blood Cells % 0.0 Platelet Count 212 Potassium Level 3.9 Red Blood Count 3.00 L Red Cell Distribution Width 17.7 H Sodium Level 144 Troponin I 3.870 *H White Blood Count 7.2 Test 05/31/16 10:56 Activated Partial Thromboplast Time 33.4 Medications Medications Current Medications Aspirin (Halfprin) 81 mg DAILY PO Last administered on 05/30/16 10:26; Admin Dose 81 MG; Start 05/27/16 at 09:00 Clopidogrel Bisulfate (plaVIX) 75 mg DAILY PO Last administered on 05/30/16 10:26; Admin Dose 75 MG; Start 05/27/16 at 09:00 Ferrous Sulfate (Ferrous Sulfate (Ec)) 325 mg BID PO Last administered on 05/30 21:13; Admin Dose 325 MG; Start 05/27/16 at 09:00 Fluticasone Propionate (Flonase 0.05% Nasal) 1 spray BID NASAL Last administered on 05/30/16 21:12; Admin Dose 1 SPRAY; Start 05/27/16 at 09:00 Gabapentin (Neurontin) 300 mg TID PO Last administered on 05/30/16 21:13; Admin Dose 300 MG; Start 05/27/16 at 09:00 Guaifenesin/ Dextromethorphan (Robitussin Dm Liquid Cup) 10 ml Q4H PRN PO COUGH ; Start 05/26/16 at 21:30 Montelukast Sodium (Singulair) 10 mg HS PO Last administered on 05/30/16at 21: 12; Admin Dose 10 MG; Start 05/27/16 at 21:00 Oxycodone/ Acetaminophen (Endocet (10/ 325)) 1 tab Q6 PRN PO PAIN; Start 05/26 at 21:30 Salmeterol Xinafoate/ Fluticasone (Advair 500/50 Diskus) 1 inh BID INH Last administered on 05/30/16 21:12; Admin Dose 1 INH; Start 05/27/16 at 09:00 Acetaminophen (Tylenol Tab) 650 mg Q4H PRN PO pain/fever; Start 05/26/16 at 21 :30 Ondansetron HCl (Zofran Inj) 4 mg Q4H PRN IV nausea; Start 05/26/16 at 21:30 Guaifenesin/ Dextromethorphan (Mucinex Dm) 1 tab BID PO Last administered on at 21:13; Admin Dose 1 TAB; Start 05/27/16 at 09:00 Fish Oil (Fish Oil) 1,000 mg DAILY PO Last administered on 05/30/16at 10:26; Admin Dose 1,000 MG; Start 05/27/16 at 09:00 Atorvastatin Calcium (Lipitor) 80 mg DAILY@21 PO Last administered on at 21:12; Admin Dose 80 MG; Start 05/27/16 at 00:00 Tramadol HCl (Ultram) 50 mg Q6H PRN PO PAIN Last administered on 05/31/16at 05: 22; Admin Dose 50 MG; Start 05/27/16 at 14:00 Miscellaneous Information 1 ea NOTE XX ; Start 05/27/16 at 18:30 Glucose (Glutose) 15 gm Q15M PRN PO DECREASED GLUCOSE; Start 05/27/16 at 18:30 Glucose (Glutose) 22.5 gm Q15M PRN PO DECREASED GLUCOSE; Start 05/27/16 at 18: 30 Dextrose (D50w Syringe) 25 ml Q15M PRN IV DECREASED GLUCOSE; Start 05/27/16 at 18:30 Dextrose (D50w Syringe) 50 ml Q15M PRN IV DECREASED GLUCOSE; Start 05/27/16 at 18:30 Glucagon (Glucagen) 1 mg Q15M PRN IM DECREASED GLUCOSE; Start 05/27/16 at 18: 30 Glucose (Glutose) 15 gm Q15M PRN BUCCAL DECREASED GLUCOSE; Start 05/27/16 at 18:30 IV Flush (NS 10 ml) 10 ml PRN PRN IV IV PROTOCOL; Start 05/28/16 at 17:30 Prednisone (Prednisone) 40 mg DAILY PO Last administered on 05/30/16at 10:26; Admin Dose 40 MG; Start 05/30/16 at 09:00 Heparin Sodium (Porcine) (Heparin (5000 Units/0.5 ml)) 5,000 unit Q12 SC Last administered on 05/30/16at 21:19; Admin Dose 5,000 UNIT; Start 05/30/16 at 09: 00 Potassium Chloride (Klor-Con 20) 20 meq BID PO Last administered on 05/30/16at 21:12; Admin Dose 20 MEQ; Start 05/30/16 at 14:00 Acetylcysteine (Nac) 600 mg BID PO ; Start 05/31/16 at 09:00; Stop 06/02/16 at 08:59 Calos Peralta DO May 31, 2016 13:35
[2016-05-31 15:17] LABS: CK-MB 3.47 ng/ml (0.0-2.4)
[2016-05-31 15:20] LABS: TROPONIN-I 2.39 ng/ml (0.00-0.12)
--- NOTE | 2016-05-31 17:37 | PN ---
Date/Time of Note Date/Time of Note DATE: 05/31/16 TIME: 17:35 Assessment/Plan VTE Prophylaxis VTE Prophylaxis Intervention: heparin Lines/Catheters IV Catheter Type (from Nrsg): PICC Line Central line still needed: Yes (critically ill patient) Urinary Cath still in place: No Assessment/Plan Assessment/Plan [facility] 1. Hospital day 5 for this 80 yo man who presented with NSTEMI, peak troponin at 13.3ng/ml five days ago. Echo had shown ejection fraction of 30%, not substantially different from before. 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 Renal function back to normal, as hoped. pCXR shows increased patchy infiltrates, but without leukocytosis or fever. * Transferred to ICU, on BiPAP now. * Patient agreed to proceed with arterial blood gas. * Also discussed code status, and they want "everything done" -- including intubation if necessary. * Check d-dimer and ESR now (via PICC) * Repeat coronary angiogram pending (last in mid-2014) now that renal function has recovered. But his dodgy respiratory status may be an obstacle. Responding to diuresis. I don't think this represents new pneumonia, with no fever or leukocytosis or cough. 2. COPD, O2 dependent. Congested-sounding on exam, with moderate diffuse rhonchi. * Maintain steroids at 40 mg daily, holding taper while his respiratory status is still compromised. * Continue nebulizers, with Advair and Spiriva * pCXR as noted above. 3. Acute renal failure. Renal function recovered now. * Potassium supplementation * Hold additional IV fluids 4. S/p fall last weekend with right leg hematoma, right arm ecchymosis, and right rib fractures. Hematomas exacerbated by heparin gtt. CT shows no muscular involvement of the right leg. * Pain control with Percocet prn and Tramadol prn * No indication for surgical evacuation. 5. Acute on chronic anemia with hematomas and concerns for ongoing blood loss * CT of the right leg, as noted above. * Defer additional transfusion, with stable hematocrit 6. Chronic back pain with acute component now with rib fractures * Percocet and tramadol as needed. 7. Hypertension * Holding Diovan secondary to low BP 8. Congestive heart failure, systolic dysfunction EF 30 % on echo yesterday. 9. Temporal arteritis. No aortic root dilatation on echo. * Continue prednisone at current dose (40mg) to assist breathing. 10. Previous history of transient ischemic attack. Patient's mental status is stable and at baseline. 11. Prophylaxis: On heparin gtt with NSTEMI, PPI for GI ppx while on steroids especially 12. Disposition: Angiogram pending resolution of respiratory crisis and stable recovery of renal function. Jose Welch MD PhD [phone] Subjective 24 Hr Interval Summary Free Text/Dictation Feeling some discomfort in the sternal area, and fearful because his breathing is so fragile. But no frida pain anywhere, despite the rib fractures. No appetite this evening, but he did eat some oatmeal this morning. Yoel, his spouse, was present this afternoon, and participated in discussions about proceeding with an ABG and maintaining him as full-code status. Exam/Review of Systems Vital Signs Vitals Vital Signs Date Time Temp Pulse Resp B/P Pulse Ox O2 Delivery O2 Flow Rate FiO2 05/31/16 17:00 107 23 97/83 99 BIPAP 05/31/16 16:00 98.1 05/31/16 15:40 60 05/31/16 09:00 2.0 Intake and Output 05/30/16 05/30/16 05/31/16 15:00 23:00 07:00 Intake Total 500 ml 600 ml Output Total 300 ml 400 ml Balance 200 ml 200 ml Exam Constitutional: Pale-appearing, worried, on BiPAP. Respiratory: Light crackles at bases. Didn't appreciate any rub. Persistent diminished breath sounds at bases bilaterally. Cardiovascular: Symmetric pulses, regular rate and rhythm Gastrointestinal: non-tender, soft Musculoskeletal: Large hematoma right leg, with minimal tenderness now. Extremities: Symmetric pulses 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: BEAN WEIGHER II-XII intact, nl mental status, nl speech. Worried affect. Results Result Diagram: 05/31/16 0555 05/31/16 0555 Results 24 hrs Laboratory Tests Test 05/30/16 17:44 05/30/16 21:16 05/31/16 05:55 05/31/16 10:38 Bedside Glucose 219 183 128 Anion Gap 10 Basophils # 0.0 Basophils % 0.2 Blood Morphology Comment Blood Urea Nitrogen 34 H Calcium Level 7.6 L Carbon Dioxide Level 30 Chloride Level 108 Creatinine 0.72 Eosinophils # 0.0 Eosinophils % 0.0 Glucose Level 119 Hematocrit 28.7 L Hemoglobin 9.7 L Lymphocytes # 1.1 Lymphocytes % 15.0 Magnesium Level 2.4 Mean Corpuscular Hemoglobin 32.3 Mean Corpuscular Hemoglobin Concent 33.8 Mean Corpuscular Volume 95.7 Mean Platelet Volume 8.0 Monocytes # 0.5 Monocytes % 7.1 Neutrophils # 5.6 Neutrophils % 77.7 H Nucleated Red Blood Cells # 0.0 Nucleated Red Blood Cells % 0.0 Platelet Count 212 Potassium Level 3.9 Red Blood Count 3.00 L Red Cell Distribution Width 17.7 H Sodium Level 144 Troponin I 3.870 *H White Blood Count 7.2 Test 05/31/16 10:56 05/31/16 14:17 Activated Partial Thromboplast Time 33.4 Creatine Kinase 89 Creatine Kinase Index 3.9 Creatinine Kinase MB (Mass) 3.47 H Troponin I 2.390 *H Medications Medications Current Medications Aspirin (Halfprin) 81 mg DAILY PO Last administered on 05/30/16 10:26; Admin Dose 81 MG; Start 05/27/16 at 09:00 Clopidogrel Bisulfate (plaVIX) 75 mg DAILY PO Last administered on 05/30/16at 10:26; Admin Dose 75 MG; Start 05/27/16 at 09:00 Ferrous Sulfate (Ferrous Sulfate (Ec)) 325 mg BID PO Last administered on 05/30at 21:13; Admin Dose 325 MG; Start 05/27/16 at 09:00 Fluticasone Propionate (Flonase 0.05% Nasal) 1 spray BID NASAL Last administered on 05/30/16at 21:12; Admin Dose 1 SPRAY; Start 05/27/16 at 09:00 Gabapentin (Neurontin) 300 mg TID PO Last administered on 05/30/16at 21:13; Admin Dose 300 MG; Start 05/27/16 at 09:00 Guaifenesin/ Dextromethorphan (Robitussin Dm Liquid Cup) 10 ml Q4H PRN PO COUGH ; Start 05/26/16 at 21:30 Montelukast Sodium (Singulair) 10 mg HS PO Last administered on 05/30/16at 21: 12; Admin Dose 10 MG; Start 05/27/16 at 21:00 Oxycodone/ Acetaminophen (Endocet (10/ 325)) 1 tab Q6 PRN PO PAIN; Start 05/26 at 21:30 Salmeterol Xinafoate/ Fluticasone (Advair 500/50 Diskus) 1 inh BID INH Last administered on 05/30/16at 21:12; Admin Dose 1 INH; Start 05/27/16 at 09:00 Acetaminophen (Tylenol Tab) 650 mg Q4H PRN PO pain/fever; Start 05/26/16 at 21 :30 Ondansetron HCl (Zofran Inj) 4 mg Q4H PRN IV nausea; Start 05/26/16 at 21:30 Guaifenesin/ Dextromethorphan (Mucinex Dm) 1 tab BID PO Last administered on at 21:13; Admin Dose 1 TAB; Start 05/27/16 at 09:00 Fish Oil (Fish Oil) 1,000 mg DAILY PO Last administered on 05/30/16at 10:26; Admin Dose 1,000 MG; Start 05/27/16 at 09:00 Atorvastatin Calcium (Lipitor) 80 mg DAILY@21 PO Last administered on at 21:12; Admin Dose 80 MG; Start 05/27/16 at 00:00 Tramadol HCl (Ultram) 50 mg Q6H PRN PO PAIN Last administered on 05/31/16at 05: 22; Admin Dose 50 MG; Start 05/27/16 at 14:00 Miscellaneous Information 1 ea NOTE XX ; Start 05/27/16 at 18:30 Glucose (Glutose) 15 gm Q15M PRN PO DECREASED GLUCOSE; Start 05/27/16 at 18:30 Glucose (Glutose) 22.5 gm Q15M PRN PO DECREASED GLUCOSE; Start 05/27/16 at 18: 30 Dextrose (D50w Syringe) 25 ml Q15M PRN IV DECREASED GLUCOSE; Start 05/27/16 at 18:30 Dextrose (D50w Syringe) 50 ml Q15M PRN IV DECREASED GLUCOSE; Start 05/27/16 at 18:30 Glucagon (Glucagen) 1 mg Q15M PRN IM DECREASED GLUCOSE; Start 05/27/16 at 18: 30 Glucose (Glutose) 15 gm Q15M PRN BUCCAL DECREASED GLUCOSE; Start 05/27/16 at 18:30 IV Flush (NS 10 ml) 10 ml PRN PRN IV IV PROTOCOL; Start 05/28/16 at 17:30 Prednisone (Prednisone) 40 mg DAILY PO Last administered on 05/30/16at 10:26; Admin Dose 40 MG; Start 05/30/16 at 09:00 Heparin Sodium (Porcine) (Heparin (5000 Units/0.5 ml)) 5,000 unit Q12 SC Last administered on 05/30/16at 21:19; Admin Dose 5,000 UNIT; Start 05/30/16 at 09: 00 Potassium Chloride (Klor-Con 20) 20 meq BID PO Last administered on 05/30/16at 21:12; Admin Dose 20 MEQ; Start 05/30/16 at 14:00 Acetylcysteine (Nac) 600 mg BID PO ; Start 05/31/16 at 09:00; Stop 06/02/16 at 08:59 JOAQUIN WELCH M.D. May 31, 2016 17:37
[2016-05-31 18:40] LABS: AADO2 Arterial 285.7 mmHg (7.0-24.0); Allen Test ACCEPTAB; Arterial Base Excess 5.7 mmol/L (-3.0-3); Arterial COHb 0.3 % (0.0-3.0); Arterial HCO3 30.1 mmol/L (22.0-26.0); Arterial MetHb 0.2 % (0.0-1.5); Arterial Total Hemglobin 12.3 g/dl (12.0-18.0); Blood Gas IEPAP 15/5; Blood Gas PS 10; MODE MASK - BIPAP
[2016-05-31 19:22] LABS: CK-MB 3.02 ng/ml (0.0-2.4); TROPONIN-I 3.28 ng/ml (0.00-0.12)
[2016-05-31] MEDS: ONDANSETRON 4 MG INJ IV PRN ×2 (19:41→23:58)
[2016-05-31] MEDS: ACETYLCYSTEINE 600 MG CAP PO SCH (20:25)
[2016-05-31] MEDS: ATORVASTATIN 80 MG TAB PO SCH (20:25)
[2016-05-31] MEDS: MONTELUKAST 10 MG TAB PO SCH (20:26)
[2016-06-01] VITALS (36 sets, daily range): BP systolic 102–163; BP diastolic 36–100; PULSE 70–169; RESP 14–27
[2016-06-01] MEDS: ALBUTEROL/IPRATROPIUM (NEB) 3 ML AMP HHN SCH ×4 (01:10→20:29)
[2016-06-01 06:18] LABS: BASOPHILS % 0.1 % (0.0-2.0); EOSINOPHILS # 0.1 10^3/ul (0.0-0.5); EOSINOPHILS % 0.6 % (0.0-7.0); HEMOGLOBIN 9.8 g/dl (14.0-18.0); LYMPHOCYTES # 1.2 10^3/ul (0.8-2.9); LYMPHOCYTES % 8.9 % (15.0-51.0); MEAN CORPUSCULAR HEMOGLOBIN 32.7 pg (29.0-33.0); MEAN CORPUSCULAR HGB CONC 33.9 g/dl (32.0-37.0); MEAN CORPUSCULAR VOLUME 96.7 fl (82.0-101.0); MEAN PLATELET VOLUME 8.4 fl (7.4-10.4); MONOCYTE # 0.6 10^3/ul (0.3-0.9); MONOCYTES % 4.4 % (0.0-11.0); NEUTROPHIL # 11.8 10^3/ul (1.6-7.5); PLATELET COUNT 230 10^3/UL (140-440); RED CELL DISTRIBUTION WIDTH 16.9 % (11.5-14.5); UNCORRECTED WBC 13.7 10^3/ul (4.8-10.8); WHITE BLOOD COUNT 13.7 10^3/ul (4.8-10.8)
[2016-06-01 06:32] LABS: CONDITION 1; LH ANALYZER COMMENTS 1
[2016-06-01 06:35] LABS: POTASSIUM 3.9 mmol/L (3.5-5.1)
[2016-06-01 06:38] LABS: CREATININE 0.81 mg/dl (0.61-1.24)
[2016-06-01 06:39] LABS: CALCIUM 7.8 mg/dl (8.4-10.2)
[2016-06-01] MEDS: INSULIN ASPART [NOVOLOG] 3 ML PEN SC SCH ×4 (07:35→20:45)
--- NOTE | 2016-06-01 08:05 | RADRPT ---
PROCEDURE: XR Chest. CLINICAL INDICATION: Shortness of breath. TECHNIQUE: Single frontal view. COMPARISON: 05/31/2016. FINDINGS: There is a right arm PICC line with the tip in the superior vena cava. Pulmonary edema or bilateral multifocal pneumonia is unchanged. The heart is enlarged. There is calcification in the aorta consistent with atherosclerosis. There is no pleural effusion. There is no pneumothorax. IMPRESSION: 1. No change from 05/31/2016. RPTAT: QQ .Oscar Jackson MD, Date Time Electronically viewed and signed by .Oscar Jackson MD, MD on 06/01/2016 08:04 .R/
[2016-06-01 08:49] LABS: CK-MB 2.48 ng/ml (0.0-2.4); TROPONIN-I 3.04 ng/ml (0.00-0.12)
[2016-06-01] MEDS: FISH OIL 1,000 MG CAP PO SCH (09:00)
[2016-06-01] MEDS: FERROUS SULFATE (EC) 325 MG TAB PO SCH ×2 (09:00→20:43)
[2016-06-01] MEDS: GABAPENTIN 300 MG CAP PO SCH ×3 (09:00→20:44)
[2016-06-01] MEDS: POTASSIUM CHLORIDE (SR) 20 MEQ TAB PO SCH ×2 (09:00→20:43)
[2016-06-01] MEDS: CLOPIDOGREL 75 MG TAB PO SCH (09:00)
[2016-06-01] MEDS: predniSONE 20 MG TAB PO SCH (09:00)
[2016-06-01] MEDS: ASPIRIN (EC) 81 MG TAB PO SCH (09:00)
[2016-06-01] MEDS: ACETYLCYSTEINE 600 MG CAP PO SCH ×2 (09:00→20:43)
[2016-06-01] MEDS: GUAIFENESIN/DM (SR) TAB PO SCH ×2 (09:00→21:33)
[2016-06-01] MEDS ORDERED: morphine 2 MG INJ ONE (09:26)
[2016-06-01] MEDS: morphine 2 MG INJ IV PRN ×3 (09:43→21:43)
[2016-06-01] MEDS: SALMETEROL/FLUTICASONE 500/50 INHA INH SCH ×2 (09:47→20:45)
[2016-06-01] MEDS: FLUTICASONE 0.05% 16 GM NAS SPRAY NASAL SCH ×2 (09:47→20:43)
[2016-06-01] MEDS: HEPARIN 5,000 UNIT/0.5 ML SYG SC SCH ×2 (09:55→20:47)
[2016-06-01] MEDS ORDERED: IODIXANOL LOCM 100 ML BTL ONE ×2 (09:57→12:06)
[2016-06-01] MEDS ORDERED: HEPARIN 1000 UNITS/ML 10 ML INJ ONE ×2 (09:57→12:42)
[2016-06-01] MEDS ORDERED: LIDOCAINE 1% (MDV) 20 ML INJ ONE (09:57)
[2016-06-01] MEDS ORDERED: VERAPAMIL 5 MG INJ ONE (09:58)
[2016-06-01] MEDS ORDERED: MIDAZOLAM 1 MG/ML 2 ML INJ ONE (09:59)
[2016-06-01] MEDS ORDERED: FENTAnyl 50 MCG/ML VIAL ONE (09:59)
[2016-06-01] MEDS ORDERED: LEVOFLOXACIN 500MG/D5W (PMX) 100 ML IVPB SCH (10:30)
--- NOTE | 2016-06-01 11:26 | RADRPT ---
PROCEDURE: Chest x-ray CLINICAL INDICATION: Shortness of breath TECHNIQUE: Chest single view COMPARISON: 06/01/2016 FINDINGS: As before there is right arm PICC line with tip in the SVC. Stable cardiomegaly and an sclerotic ao rtic calcification is seen. There is ongoing moderate degree CHF bilateral patchy alveolar densitie s. A component of superimposed pneumonia is not excluded. Small bilateral pleural effusions are se en. There is bibasilar compressive atelectasis. Bones are markedly osteopenic. There is post kyph oplasty changes at multiple thoracic vertebral bodies. IMPRESSION: 1. Cardiomegaly with ongoing moderate degree CHF and small bilateral pleural effusions. 2. Component of superimposed pneumonia is not excluded. 3. Atherosclerotic aortic calcification. 4. Right arm PICC line. 5. Osteopenia with post kyphoplasty changes RPTAT: HH .Timur Bai MD, Date Time Electronically viewed and signed by .Timur Bai MD, on 06/01/2016 11:26 .W/
--- NOTE | 2016-06-01 12:03 | CONS ---
DATE OF ADMISSION: 05/26/2016 DATE OF CONSULTATION: TYPE OF CONSULTATION: Pulmonary. REASON FOR CONSULTATION: Shortness of breath. Thank you, , for this consultation. HISTORY OF PRESENT ILLNESS: This is a pleasant 80-year-old gentleman originally admitted on 016 with generalized weakness, lethargy, found to have a non-ST elevation myocardial infarction, pen ding cardiac workup including coronary catheterization. The patient has been experiencing increasing shortness of breath, orthopnea, PND. Chest x-ray demonstrating pulmonary edema, possible underlyin g infiltrates. The patient was treated with diuretics had worsening renal function and hyperkalemia which appears to be slowly resolving. This morning, he is awake, alert, comfortable, talking in fu ll and complete sentences being taken off noninvasive positive pressure ventilation. PAST MEDICAL HISTORY: COPD, remote tobacco history, hypertension, hyperlipidemia, aortic valve repl acement. MEDICATIONS: Per chart. ALLERGIES: NONE. SOCIAL HISTORY: Ex-smoker, no alcohol, no history of drug use. FAMILY HISTORY: Noncontributory. SYSTEMS REVIEW: A 12-point review of systems negative other than that mentioned above. PHYSICAL EXAMINATION: GENERAL: Well-nourished, well-developed gentleman, comfortable at rest, talking in full and complet e sentences. VITAL SIGNS: Currently afebrile. Pulse is 90, blood pressure 114/64, O2 saturation 96% on 4 L nasa l cannula. NECK: Supple. No JVD or lymphadenopathy. CARDIAC: S1, S2, no added sounds or murmurs. CHEST: Diminished air entry bilaterally. ABDOMEN: Soft, nontender. No guarding or rebound. EXTREMITIES: No cyanosis, clubbing, edema. NEUROLOGIC: Generalized weakness. LABORATORY DATA: White count 13.7, hemoglobin 9.8, platelets of 230, BUN 30, creatinine 0.81. Trop onin 3.04. Arterial blood gas PaO2 was 94, pCO2 was 43 on BiPAP. DIAGNOSTIC DATA: Chest x-ray shows pulmonary edema, possible right upper lobe infiltrate. IMPRESSION AND PLAN: 1. Congestive cardiac failure. 2. Possible chronic obstructive pulmonary disease exacerbation. 3. Questionable early right upper lobe infiltrate. 4. Non-ST elevation [place]. The patient will need continued aspirin, Plavix, cardiac recommendations. Cardiac catheterization when stable. 5. Gentle diuresis. 6. I have added Levaquin to medications for possible right upper lobe pneumonia. 7. DVT and GI prophylaxis. Dictated By: SIOMARA VALDES/LATISHA Conf#: [id number] DID#: [id number]
[2016-06-01] MEDS ORDERED: IODIXANOL LOCM 50 ML BTL ONE (12:06)
[2016-06-01] MEDS ORDERED: FUROSEMIDE 40 MG INJ ONE (12:08)
[2016-06-01] MEDS ORDERED: ASPIRIN 81 MG TAB ONE (12:38)
[2016-06-01] MEDS ORDERED: CLOPIDOGREL 300 MG TAB ONE (12:38)
[2016-06-01] MEDS ORDERED: ONDANSETRON 4 MG INJ ONE (12:53)
--- NOTE | 2016-06-01 13:21 | CONS ---
Date/Time of Note Date/Time of Note DATE: 06/01/16 TIME: 13:19 Assessment/Plan Assessment/Plan Chief Complaint/Hosp Course - Acute Kidney Injury post Contrast - CKD ( ? HTN Nephrosclerosis ) - Acute TX - Hyperkalemia - ? Rhabdomyolysis - COPD - Hx of Temporal Arteritis - CAD/CHF PLAN: Improving Creatinine & ATN MANAGER JAVA noted & transfered to ICU Renal back to baseline Continue with Monitoring renal function Will aim to keep I/O Negative Problems: Consultation Date/Type/Reason Admit Date/Time May 26, 2016 at 19:17 Initial Consult Date 05/28/16 Type of Consultation: NEPHROLOGY Reason for Consultation Acute Kidney Injury 24 HR Interval Summary Subjective hx not possible: pt critical status Constitutional: requiring O2 Exam/Review of Systems Vital Signs Vitals Vital Signs Date Time Temp Pulse Resp B/P Pulse Ox O2 Delivery O2 Flow Rate FiO2 06/01/16 10:00 101 20 131/73 100 Nasal Cannula 3.0 06/01/16 08:58 30 06/01/16 08:00 98.4 Intake and Output 05/31/16 05/31/16 06/01/16 15:00 23:00 07:00 Intake Total 200 ml 50 ml Output Total 975 ml 295 ml Balance -775 ml -245 ml Exam In ICU post MANAGER JAVA Constitutional: non-verbal Psych: no complaints Eyes: nl conjunctiva Neck: jvd, supple Respiratory: crackles/rales Cardiovascular: systolic murmur Results Result Diagram: 06/01/16 0500 06/01/16 0500 Results 24 hrs Laboratory Tests Test 05/31/16 14:05 05/31/16 14:17 05/31/16 18:19 05/31/16 18:32 Arterial Blood HCO3 30.1 H Arterial Blood Base Excess 5.7 H Arterial Blood Oxygen Saturation 97.5 Delonte Test ACCEPTAB Arterial Blood Gas Puncture Site Left Radial Arterial Blood Carboxyhemoglobin 0.3 Arterial Blood Date Drawn 05/31/2016 6:25:58 PM Arterial Blood Methemoglobin 0.2 Arterial Blood pCO2 (Temp correct) 43.0 Arterial Blood pH (Temp corrected) 7.463 H Arterial Blood pO2 (Temp corrected) 94.8 H Blood Gas A-a O2 Differential 285.7 H Blood Gas Actual Respiration Rate 24 Blood Gas Critical Value Read Back E. GAVIOLA RN Blood Gas IPAP/EPAP Ratio 15/5 Blood Gas Modality MASK - BIPAP Blood Gas Notified Time 05/31/2016 6:39:27 PM Blood Gas Notified Whom RDIX Blood Gas Pressure Support 10 Blood Gas Respiration Rate 20.0 Blood Gas Specimen Source Blood arterial Blood Gas Temperature 37.0 FiO2 60.0 Oxyhemoglobin Percent 97.0 Total Hemoglobin 12.3 Creatine Kinase 89 74 Creatine Kinase Index 3.9 4.1 Creatinine Kinase MB (Mass) 3.47 H 3.02 H Troponin I 2.390 *H 3.280 *H Bedside Glucose 111 Test 05/31/16 20:33 06/01/16 05:00 06/01/16 07:55 Bedside Glucose 105 88 Anion Gap 8 Basophils # 0.0 Basophils % 0.1 Blood Morphology Comment Blood Urea Nitrogen 30 H Calcium Level 7.8 L Carbon Dioxide Level 34 H Chloride Level 107 Creatine Kinase 46 Creatine Kinase Index 5.4 Creatinine 0.81 Creatinine Kinase MB (Mass) 2.48 H Eosinophils # 0.1 Eosinophils % 0.6 Glucose Level 93 Hematocrit 29.0 L Hemoglobin 9.8 L Lymphocytes # 1.2 Lymphocytes % 8.9 L Magnesium Level 2.3 Mean Corpuscular Hemoglobin 32.7 Mean Corpuscular Hemoglobin Concent 33.9 Mean Corpuscular Volume 96.7 Mean Platelet Volume 8.4 Monocytes # 0.6 Monocytes % 4.4 Neutrophils # 11.8 H Neutrophils % 86.0 H Nucleated Red Blood Cells # 0.0 Nucleated Red Blood Cells % 0.0 Platelet Count 230 Potassium Level 3.9 Red Blood Count 3.00 L Red Cell Distribution Width 16.9 H Sodium Level 145 H Troponin I 3.040 *H White Blood Count 13.7 #H Medications Medications Current Medications Aspirin (Halfprin) 81 mg DAILY PO Last administered on 05/30/16at 10:26; Admin Dose 81 MG; Start 05/27/16 at 09:00 Clopidogrel Bisulfate (plaVIX) 75 mg DAILY PO Last administered on 05/30/16at 10:26; Admin Dose 75 MG; Start 05/27/16 at 09:00 Ferrous Sulfate (Ferrous Sulfate (Ec)) 325 mg BID PO Last administered on 05/31at 20:25; Admin Dose 325 MG; Start 05/27/16 at 09:00 Fluticasone Propionate (Flonase 0.05% Nasal) 1 spray BID NASAL Last administered on 06/01/16 09:47; Admin Dose 1 SPRAY; Start 05/27/16 at 09:00 Gabapentin (Neurontin) 300 mg TID PO Last administered on 05/31/16 20:26; Admin Dose 300 MG; Start 05/27/16 at 09:00 Guaifenesin/ Dextromethorphan (Robitussin Dm Liquid Cup) 10 ml Q4H PRN PO COUGH ; Start 05/26/16 at 21:30 Montelukast Sodium (Singulair) 10 mg HS PO Last administered on 05/31/16 20: 26; Admin Dose 10 MG; Start 05/27/16 at 21:00 Oxycodone/ Acetaminophen (Endocet (10/ 325)) 1 tab Q6 PRN PO PAIN; Start 05/26 at 21:30 Salmeterol Xinafoate/ Fluticasone (Advair 500/50 Diskus) 1 inh BID INH Last administered on 06/01/16 09:47; Admin Dose 1 INH; Start 05/27/16 at 09:00 Acetaminophen (Tylenol Tab) 650 mg Q4H PRN PO pain/fever; Start 05/26/16 at 21 :30 Ondansetron HCl (Zofran Inj) 4 mg Q4H PRN IV nausea Last administered on 23:58; Admin Dose 4 MG; Start 05/26/16 at 21:30 Guaifenesin/ Dextromethorphan (Mucinex Dm) 1 tab BID PO Last administered on 20:26; Admin Dose 1 TAB; Start 05/27/16 at 09:00 Fish Oil (Fish Oil) 1,000 mg DAILY PO Last administered on 05/30/16at 10:26; Admin Dose 1,000 MG; Start 05/27/16 at 09:00 Atorvastatin Calcium (Lipitor) 80 mg DAILY@21 PO Last administered on 20:25; Admin Dose 80 MG; Start 05/27/16 at 00:00 Tramadol HCl (Ultram) 50 mg Q6H PRN PO PAIN Last administered on 05/31/16 20: 30; Admin Dose 50 MG; Start 05/27/16 at 14:00 Miscellaneous Information 1 ea NOTE XX ; Start 05/27/16 at 18:30 Glucose (Glutose) 15 gm Q15M PRN PO DECREASED GLUCOSE; Start 05/27/16 at 18:30 Glucose (Glutose) 22.5 gm Q15M PRN PO DECREASED GLUCOSE; Start 05/27/16 at 18: 30 Dextrose (D50w Syringe) 25 ml Q15M PRN IV DECREASED GLUCOSE; Start 05/27/16 at 18:30 Dextrose (D50w Syringe) 50 ml Q15M PRN IV DECREASED GLUCOSE; Start 05/27/16 at 18:30 Glucagon (Glucagen) 1 mg Q15M PRN IM DECREASED GLUCOSE; Start 05/27/16 at 18: 30 Glucose (Glutose) 15 gm Q15M PRN BUCCAL DECREASED GLUCOSE; Start 05/27/16 at 18:30 IV Flush (NS 10 ml) 10 ml PRN PRN IV IV PROTOCOL; Start 05/28/16 at 17:30 Prednisone (Prednisone) 40 mg DAILY PO Last administered on 05/30/16at 10:26; Admin Dose 40 MG; Start 05/30/16 at 09:00 Heparin Sodium (Porcine) (Heparin (5000 Units/0.5 ml)) 5,000 unit Q12 SC Last administered on 06/01/16at 09:55; Admin Dose 5,000 UNIT; Start 05/30/16 at 09: 00 Potassium Chloride (Klor-Con 20) 20 meq BID PO Last administered on 05/31/16at 20:25; Admin Dose 20 MEQ; Start 05/30/16 at 14:00 Acetylcysteine (Nac) 600 mg BID PO Last administered on 05/31/16at 20:25; Admin Dose 600 MG; Start 05/31/16 at 09:00; Stop 06/02/16 at 08:59 Morphine Sulfate 1 mg 1 mg Q4H PRN IV PAIN Last administered on 06/01/16at 09: 43; Admin Dose 1 MG; Start 06/01/16 at 09:30 Levofloxacin/ Dextrose (Levaquin 500mg/ D5W 100 ml (Pmx)) 100 ml @ 100 mls/hr Q24H IVPB ; Start 06/01/16 at 10:30 Miscellaneous Information (* Miscellaneous Pharmacy Order) Hold all Metformin ... ONCE XX ; Start 06/01/16 at 13:30; Stop 06/03/16 at 13:29 PATT FARRELL MD Jun 01, 2016 13:21
--- NOTE | 2016-06-01 13:50 | PN ---
Date/Time of Note Date/Time of Note DATE: 06/01/16 TIME: 13:43 Assessment/Plan VTE Prophylaxis VTE Prophylaxis Intervention: SCD's Lines/Catheters IV Catheter Type (from Nrsg): PICC Line Central line still needed: Yes (for IV access) Urinary Cath still in place: Yes Reason Cath still needed: other (indicate) (monitor UOP) Assessment/Plan Assessment/Plan 80 yo male with: 1. NSTEMI, patient s/p TAVR and with cardiomyopathy with troponin picked up at 13, per previous angio coronary artery disease, nonobstructive Echo with EF down to 30% and ? Takotsubo S/p Angiogram today, with placement of 1 stent today to circ In ICU, on BiPAP for now with plans to titrate to NC 2. COPD, O2 dependent Remains stable, Continue Prednisone to 40 daily for now and will taper further slowly back to outpatient dosing. Nebs rx , Advair and Spiriva BiPAP as needed 3. JOE on CKD: Appreciate Dr Cordero's recommendations Renal function recovered and electrolytes stable Continue to monitor post angio today 4. S/p accidental fall last weekend and with RLE Hematoma and RUE ecchymosis and right rib fractures Pain control with Percocet prn and Tramadol prn Hb stable and CT right LE noted. Continue to monitor 5. Acute on chronic Anemia with hematomas and concerns for ongoing blood loss: S/p 2 units pRBC and stable Hb since then Monitor h/h 6. Chronic back pain with acute component now with rib fractures: Percocet and tramadol prn 7. Hypertension: Currently low BP so holding Diovan 8. Congestive heart failure, systolic dysfunction EF 30 % on echo today. S/p episode of volume overload and respiratory distress requiring BIPAP, diuresis prn and ICU monitoring 9. Temporal arteritis. The patient is already on prednisone. 10. Previous history of transient ischemic attack. Patient's mental status is stable and at baseline. Monitor Prophylaxis: SCDs as tolerated, PPI for GI ppx while on steroids especially Disposition: S/p Angiogram today and monitoring in ICU for respiratory status and risks for arrhythmias. Subjective 24 Hr Interval Summary Free Text/Dictation Patient is s/p PTCA with 1 stent to circumflex On BiPAP for now VSS Exam/Review of Systems Vital Signs Vitals Vital Signs Date Time Temp Pulse Resp B/P Pulse Ox O2 Delivery O2 Flow Rate FiO2 06/01/16 10:00 101 20 131/73 100 Nasal Cannula 3.0 06/01/16 08:58 30 06/01/16 08:00 98.4 Intake and Output 05/31/16 05/31/16 06/01/16 15:00 23:00 07:00 Intake Total 200 ml 50 ml Output Total 975 ml 295 ml Balance -775 ml -245 ml Exam Constitutional: alert, frail, oriented Respiratory: diminished breath sounds (bases bilaterally ), other (BiPAP on ) Cardiovascular: nl pulses, regular rate and rhythm Gastrointestinal: non-tender, soft Musculoskeletal: other (echymosis and RLE hematoma with dressing over it ) Extremities: normal pulses 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: 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 intact, nl mental status, other (BiPAP on ) Skin: ecchymosis (upper extremities ) Results Result Diagram: 06/01/16 0500 06/01/16 0500 Results 24 hrs Laboratory Tests Test 05/31/16 14:05 05/31/16 14:17 05/31/16 18:19 05/31/16 18:32 Arterial Blood HCO3 30.1 H Arterial Blood Base Excess 5.7 H Arterial Blood Oxygen Saturation 97.5 [place] Test ACCEPTAB Arterial Blood Gas Puncture Site Left Radial Arterial Blood Carboxyhemoglobin 0.3 Arterial Blood Date Drawn 05/31/2016 6:25:58 PM Arterial Blood Methemoglobin 0.2 Arterial Blood pCO2 (Temp correct) 43.0 Arterial Blood pH (Temp corrected) 7.463 H Arterial Blood pO2 (Temp corrected) 94.8 H Blood Gas A-a O2 Differential 285.7 H Blood Gas Actual Respiration Rate 24 Blood Gas Critical Value Read Back Jorge HERNANDEZ RN Blood Gas IPAP/EPAP Ratio 15/5 Blood Gas Modality MASK - BIPAP Blood Gas Notified Time 05/31/2016 6:39:27 PM Blood Gas Notified Whom RDIX Blood Gas Pressure Support 10 Blood Gas Respiration Rate 20.0 Blood Gas Specimen Source Blood arterial Blood Gas Temperature 37.0 FiO2 60.0 Oxyhemoglobin Percent 97.0 Total Hemoglobin 12.3 Creatine Kinase 89 74 Creatine Kinase Index 3.9 4.1 Creatinine Kinase MB (Mass) 3.47 H 3.02 H Troponin I 2.390 *H 3.280 *H Bedside Glucose 111 Test 05/31/16 20:33 06/01/16 05:00 06/01/16 07:55 Bedside Glucose 105 88 Anion Gap 8 Basophils # 0.0 Basophils % 0.1 Blood Morphology Comment Blood Urea Nitrogen 30 H Calcium Level 7.8 L Carbon Dioxide Level 34 H Chloride Level 107 Creatine Kinase 46 Creatine Kinase Index 5.4 Creatinine 0.81 Creatinine Kinase MB (Mass) 2.48 H Eosinophils # 0.1 Eosinophils % 0.6 Glucose Level 93 Hematocrit 29.0 L Hemoglobin 9.8 L Lymphocytes # 1.2 Lymphocytes % 8.9 L Magnesium Level 2.3 Mean Corpuscular Hemoglobin 32.7 Mean Corpuscular Hemoglobin Concent 33.9 Mean Corpuscular Volume 96.7 Mean Platelet Volume 8.4 Monocytes # 0.6 Monocytes % 4.4 Neutrophils # 11.8 H Neutrophils % 86.0 H Nucleated Red Blood Cells # 0.0 Nucleated Red Blood Cells % 0.0 Platelet Count 230 Potassium Level 3.9 Red Blood Count 3.00 L Red Cell Distribution Width 16.9 H Sodium Level 145 H Troponin I 3.040 *H White Blood Count 13.7 #H Medications Medications Current Medications Aspirin (Halfprin) 81 mg DAILY PO Last administered on 05/30/16 10:26; Admin Dose 81 MG; Start 05/27/16 at 09:00 Clopidogrel Bisulfate (plaVIX) 75 mg DAILY PO Last administered on 05/30/16 10:26; Admin Dose 75 MG; Start 05/27/16 at 09:00 Ferrous Sulfate (Ferrous Sulfate (Ec)) 325 mg BID PO Last administered on 05/31 20:25; Admin Dose 325 MG; Start 05/27/16 at 09:00 Fluticasone Propionate (Flonase 0.05% Nasal) 1 spray BID NASAL Last administered on 06/01/16at 09:47; Admin Dose 1 SPRAY; Start 05/27/16 at 09:00 Gabapentin (Neurontin) 300 mg TID PO Last administered on 05/31/16 20:26; Admin Dose 300 MG; Start 05/27/16 at 09:00 Guaifenesin/ Dextromethorphan (Robitussin Dm Liquid Cup) 10 ml Q4H PRN PO COUGH ; Start 05/26/16 at 21:30 Montelukast Sodium (Singulair) 10 mg HS PO Last administered on 12/18/16at 20: 26; Admin Dose 10 MG; Start 05/27/16 at 21:00 Oxycodone/ Acetaminophen (Endocet (10/ 325)) 1 tab Q6 PRN PO PAIN; Start 05/26 at 21:30 Salmeterol Xinafoate/ Fluticasone (Advair 500/50 Diskus) 1 inh BID INH Last administered on 06/01/16at 09:47; Admin Dose 1 INH; Start 05/27/16 at 09:00 Acetaminophen (Tylenol Tab) 650 mg Q4H PRN PO pain/fever; Start 05/26/16 at 21 :30 Ondansetron HCl (Zofran Inj) 4 mg Q4H PRN IV nausea Last administered on at 23:58; Admin Dose 4 MG; Start 05/26/16 at 21:30 Guaifenesin/ Dextromethorphan (Mucinex Dm) 1 tab BID PO Last administered on at 20:26; Admin Dose 1 TAB; Start 05/27/16 at 09:00 Fish Oil (Fish Oil) 1,000 mg DAILY PO Last administered on 05/30/16at 10:26; Admin Dose 1,000 MG; Start 05/27/16 at 09:00 Atorvastatin Calcium (Lipitor) 80 mg DAILY@21 PO Last administered on at 20:25; Admin Dose 80 MG; Start 05/27/16 at 00:00 Tramadol HCl (Ultram) 50 mg Q6H PRN PO PAIN Last administered on 05/31/16at 20: 30; Admin Dose 50 MG; Start 05/27/16 at 14:00 Miscellaneous Information 1 ea NOTE XX ; Start 05/27/16 at 18:30 Glucose (Glutose) 15 gm Q15M PRN PO DECREASED GLUCOSE; Start 05/27/16 at 18:30 Glucose (Glutose) 22.5 gm Q15M PRN PO DECREASED GLUCOSE; Start 05/27/16 at 18: 30 Dextrose (D50w Syringe) 25 ml Q15M PRN IV DECREASED GLUCOSE; Start 05/27/16 at 18:30 Dextrose (D50w Syringe) 50 ml Q15M PRN IV DECREASED GLUCOSE; Start 05/27/16 at 18:30 Glucagon (Glucagen) 1 mg Q15M PRN IM DECREASED GLUCOSE; Start 05/27/16 at 18: 30 Glucose (Glutose) 15 gm Q15M PRN BUCCAL DECREASED GLUCOSE; Start 05/27/16 at 18:30 IV Flush (NS 10 ml) 10 ml PRN PRN IV IV PROTOCOL; Start 05/28/16 at 17:30 Prednisone (Prednisone) 40 mg DAILY PO Last administered on 05/30/16at 10:26; Admin Dose 40 MG; Start 05/30/16 at 09:00 Heparin Sodium (Porcine) (Heparin (5000 Units/0.5 ml)) 5,000 unit Q12 SC Last administered on 06/01/16at 09:55; Admin Dose 5,000 UNIT; Start 05/30/16 at 09: 00 Potassium Chloride (Klor-Con 20) 20 meq BID PO Last administered on 05/31/16at 20:25; Admin Dose 20 MEQ; Start 05/30/16 at 14:00 Acetylcysteine (Nac) 600 mg BID PO Last administered on 05/31/16at 20:25; Admin Dose 600 MG; Start 05/31/16 at 09:00; Stop 06/02/16 at 08:59 Morphine Sulfate 1 mg 1 mg Q4H PRN IV PAIN Last administered on 06/01/16at 09: 43; Admin Dose 1 MG; Start 06/01/16 at 09:30 Levofloxacin/ Dextrose (Levaquin 500mg/ D5W 100 ml (Pmx)) 100 ml @ 100 mls/hr Q24H IVPB ; Start 06/01/16 at 10:30 Miscellaneous Information (* Miscellaneous Pharmacy Order) Hold all Metformin ... ONCE XX ; Start 06/01/16 at 13:30; Stop 06/03/16 at 13:29 RICHIE SWEET Jun 01, 2016 13:50
[2016-06-01] MEDS ORDERED: AMIODARONE 150MG/D5W BOLUS 100 ML ONE (13:51)
[2016-06-01] MEDS ORDERED: AMIODARONE 150MG/D5W BOLUS 100 ML IV ONE (14:00)
[2016-06-01] MEDS ORDERED: MAGNESIUM SULFATE 1 GM/D5W 100 ML IVPB ONE (14:00)
--- NOTE | 2016-06-01 14:20 | CONS ---
Date/Time of Note Date/Time of Note DATE: 06/01/16 TIME: 14:17 Assessment/Plan Assessment/Plan Additional Assessment/Plan Non-ST elevation PR status post drug-eluting stenting to circumflex 06/01/2016 Respiratory Failure Acute Decompensated Systolic CHF Paroxysmal atrial fibrillation, currently with rapid ventricular rates Acute kidney injury, improving Cardiomyopathy ejection fraction 35% Acute blood loss anemia Mechanical fall with rib fractures and right lower extremity trauma Mild to moderate coronary artery disease based on catheterization in October 2014. Aortic stenosis, status post transcatheter aortic valve replacement in January 2015. Chronic obstructive pulmonary disease on home oxygen. -Patient status post PCI to the circumflex with placement of drug-eluting stents. Otherwise rest of the arteries are patent. Patient with atrial fibrillation postprocedure, being started on amiodarone was and drip. Patient was unable to tolerate anticoagulation previously secondary to large hematoma and recurrent anemia. Continue telemetry monitoring, continue statin and dual antiplatelet therapy. Withhold any nephrotoxic medications. Consultation Date/Type/Reason Admit Date/Time May 26, 2016 at 19:17 Type of Consultation: cv 24 HR Interval Summary Free Text/Dictation Patient status post cardiac catheterization today with stenting to circumflex. Patient in atrial fibrillation postprocedure, denies chest pain, shortness of breath and baseline Exam/Review of Systems Vital Signs Vitals Vital Signs Date Time Temp Pulse Resp B/P Pulse Ox O2 Delivery O2 Flow Rate FiO2 06/01/16 10:00 101 20 131/73 100 Nasal Cannula 3.0 06/01/16 08:58 30 06/01/16 08:00 98.4 Intake and Output 05/31/16 05/31/16 06/01/16 15:00 23:00 07:00 Intake Total 200 ml 50 ml Output Total 975 ml 295 ml Balance -775 ml -245 ml Exam On BiPAP Constitutional: alert, oriented Head: normocephalic Respiratory: other (course breath sounds bilaterally with scattered rhonchi, no wheezing) Cardiovascular: irregular rhythm, other (S1-S2 heard) Gastrointestinal: bowel sounds, non-tender, soft Extremities: edema Results Result Diagram: 06/01/16 0500 06/01/16 0500 Results 24 hrs Laboratory Tests Test 05/31/16 18:19 05/31/16 18:32 05/31/16 20:33 06/01/16 05:00 Bedside Glucose 111 105 Creatine Kinase 74 46 Creatine Kinase Index 4.1 5.4 Creatinine Kinase MB (Mass) 3.02 H 2.48 H Troponin I 3.280 *H 3.040 *H Anion Gap 8 Basophils # 0.0 Basophils % 0.1 Blood Morphology Comment Blood Urea Nitrogen 30 H Calcium Level 7.8 L Carbon Dioxide Level 34 H Chloride Level 107 Creatinine 0.81 Eosinophils # 0.1 Eosinophils % 0.6 Glucose Level 93 Hematocrit 29.0 L Hemoglobin 9.8 L Lymphocytes # 1.2 Lymphocytes % 8.9 L Magnesium Level 2.3 Mean Corpuscular Hemoglobin 32.7 Mean Corpuscular Hemoglobin Concent 33.9 Mean Corpuscular Volume 96.7 Mean Platelet Volume 8.4 Monocytes # 0.6 Monocytes % 4.4 Neutrophils # 11.8 H Neutrophils % 86.0 H Nucleated Red Blood Cells # 0.0 Nucleated Red Blood Cells % 0.0 Platelet Count 230 Potassium Level 3.9 Red Blood Count 3.00 L Red Cell Distribution Width 16.9 H Sodium Level 145 H White Blood Count 13.7 #H Test 06/01/16 07:55 Bedside Glucose 88 Medications Medications Current Medications Aspirin (Halfprin) 81 mg DAILY PO Last administered on 05/30/16 10:26; Admin Dose 81 MG; Start 05/27/16 at 09:00 Clopidogrel Bisulfate (plaVIX) 75 mg DAILY PO Last administered on 05/30/16at 10:26; Admin Dose 75 MG; Start 05/27/16 at 09:00 Ferrous Sulfate (Ferrous Sulfate (Ec)) 325 mg BID PO Last administered on 05/31 20:25; Admin Dose 325 MG; Start 05/27/16 at 09:00 Fluticasone Propionate (Flonase 0.05% Nasal) 1 spray BID NASAL Last administered on 06/01/16at 09:47; Admin Dose 1 SPRAY; Start 05/27/16 at 09:00 Gabapentin (Neurontin) 300 mg TID PO Last administered on 05/31/16 20:26; Admin Dose 300 MG; Start 05/27/16 at 09:00 Guaifenesin/ Dextromethorphan (Robitussin Dm Liquid Cup) 10 ml Q4H PRN PO COUGH ; Start 05/26/16 at 21:30 Montelukast Sodium (Singulair) 10 mg HS PO Last administered on 05/31/16at 20: 26; Admin Dose 10 MG; Start 05/27/16 at 21:00 Oxycodone/ Acetaminophen (Endocet (10/ 325)) 1 tab Q6 PRN PO PAIN; Start 05/26 at 21:30 Salmeterol Xinafoate/ Fluticasone (Advair 500/50 Diskus) 1 inh BID INH Last administered on 06/01/16at 09:47; Admin Dose 1 INH; Start 05/27/16 at 09:00 Acetaminophen (Tylenol Tab) 650 mg Q4H PRN PO pain/fever; Start 05/26/16 at 21 :30 Ondansetron HCl (Zofran Inj) 4 mg Q4H PRN IV nausea Last administered on at 23:58; Admin Dose 4 MG; Start 05/26/16 at 21:30 Guaifenesin/ Dextromethorphan (Mucinex Dm) 1 tab BID PO Last administered on at 20:26; Admin Dose 1 TAB; Start 05/27/16 at 09:00 Fish Oil (Fish Oil) 1,000 mg DAILY PO Last administered on 05/30/16at 10:26; Admin Dose 1,000 MG; Start 05/27/16 at 09:00 Atorvastatin Calcium (Lipitor) 80 mg DAILY@21 PO Last administered on at 20:25; Admin Dose 80 MG; Start 05/27/16 at 00:00 Tramadol HCl (Ultram) 50 mg Q6H PRN PO PAIN Last administered on 05/31/16at 20: 30; Admin Dose 50 MG; Start 05/27/16 at 14:00 Miscellaneous Information 1 ea NOTE XX ; Start 05/27/16 at 18:30 Glucose (Glutose) 15 gm Q15M PRN PO DECREASED GLUCOSE; Start 05/27/16 at 18:30 Glucose (Glutose) 22.5 gm Q15M PRN PO DECREASED GLUCOSE; Start 05/27/16 at 18: 30 Dextrose (D50w Syringe) 25 ml Q15M PRN IV DECREASED GLUCOSE; Start 05/27/16 at 18:30 Dextrose (D50w Syringe) 50 ml Q15M PRN IV DECREASED GLUCOSE; Start 05/27/16 at 18:30 Glucagon (Glucagen) 1 mg Q15M PRN IM DECREASED GLUCOSE; Start 05/27/16 at 18: 30 Glucose (Glutose) 15 gm Q15M PRN BUCCAL DECREASED GLUCOSE; Start 05/27/16 at 18:30 IV Flush (NS 10 ml) 10 ml PRN PRN IV IV PROTOCOL; Start 05/28/16 at 17:30 Prednisone (Prednisone) 40 mg DAILY PO Last administered on 05/30/16at 10:26; Admin Dose 40 MG; Start 05/30/16 at 09:00 Heparin Sodium (Porcine) (Heparin (5000 Units/0.5 ml)) 5,000 unit Q12 SC Last administered on 06/01/16at 09:55; Admin Dose 5,000 UNIT; Start 05/30/16 at 09: 00 Potassium Chloride (Klor-Con 20) 20 meq BID PO Last administered on 05/31/16at 20:25; Admin Dose 20 MEQ; Start 05/30/16 at 14:00 Acetylcysteine (Nac) 600 mg BID PO Last administered on 05/31/16at 20:25; Admin Dose 600 MG; Start 05/31/16 at 09:00; Stop 06/02/16 at 08:59 Morphine Sulfate (morphine) 1 mg Q4H PRN IV PAIN Last administered on at 09:43; Admin Dose 1 MG; Start 06/01/16 at 09:30 Miscellaneous Information Hold all Metformin ... ONCE XX Last administered on 06/01/16at 14:09; Admin Dose 1 EA; Start 06/01/16 at 13:30; Stop 06/03/16 at 13:29 Magnesium Sulfate/ Dextrose 100 ml @ 100 mls/hr ONCE ONCE IVPB Last administered on 06/01/16at 14:07; Admin Dose 100 MLS/HR; Start 06/01/16 at 14: 00; Stop 06/01/16 at 14:59 Amiodarone HCl/ Dextrose (Cordarone Iv/ D5W) 500 ml @ 0 mls/hr Q0M IV ; Start 06/01/16 at 15:00 Calos Peralta DO Jun 01, 2016 14:20
[2016-06-01] MEDS: AMIODARONE 900 MG in DEXTROSE 5% 482 ML IV SCH (14:21)
[2016-06-01] MEDS: ONDANSETRON 4 MG INJ IV PRN ×2 (16:49→21:32)
--- NOTE | 2016-06-01 17:26 | CARRPT ---
DATE OF PROCEDURE: 06/01/2016 PROCEDURES: 1. Left heart catheterization. 2. Right and left coronary angiogram. 3. Interpretation and supervision of right and left coronary angiogram. 4. Complex PCI of the circumflex with placement of a Resolute 2.5 x 12 mm drug- eluting stent. 5. Left radial artery approach. PATIENT HISTORY: This is an 80-year-old male who presents with non-ST elevation myocardial infarction and decreased ejection fraction. The patient has been optimized from a renal standpoint and, given continued troponin elevation, proceed with left heart catheterization. FINDINGS: 1. Aortic pressure was 119/64. 2. Left main is a medium caliber vessel with no significant disease. 3. Circumflex is a medium caliber vessel. In the mid section, there is a focal 90% stenosis. Right after that, there is a 40% stenosis. Distally, there is 20% diffuse stenosis. 4. LAD is a medium caliber vessel with proximal 20% stenosis, mid 30% stenosis , and distal 20% diffuse stenosis. 5. RCA is a medium caliber vessel and is dominant. There is ostial 30% stenosis, mid 30% stenosis, and distal 30% diffuse stenosis. DESCRIPTION OF PROCEDURE: The patient was [place] [facility] after informed consent. The patient was prepped and draped as per protocol. The patient was on BiPAP at the start of the procedure and required multiple pillows under his head to help him with his shortness of breath. Using ultrasound guidance, left radial access was obtained. A 5/6 Algerian sheath was placed in the left radial artery. We started with a 5-Algerian JL3.5 diagnostic catheter. 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 This made it significantly difficult to cannulate the coronary arteries secondary to our catheters multiple times getting attached to the CAGE as well as difficulty with cannulations since the coronary arteries are behind this area. Initially, we were able to engage the left main, but it was selective to the circumflex. Images were obtained with a JL3.5. We next tried switching for a JL3.0, but we were unable to cannulate the arteries with this. We next used a JR4 diagnostic catheter to try to engage the RCA. Given the takeoff as well as it also being behind this CAGE, we were not able to fully cannulate, but did a nonselective shot, which showed good opacification of the RCA, which demonstrated it was patent with no significant disease. We next tried using an XB LAD 3.5 to engage the left main, but with the same problem with unable to cannulate. We next used a 6-Algerian JL3.5 guide, but still unable to cannulate. We next used 6 -Algerian JL4 guide catheter. We were able to engage the left main and direct it somewhat towards the LAD, but with catheter manipulation, we frequently did have ventricularization, which limited our injections. Given the area of stenosis in the circumflex and with difficult engagement, we proceeded with intervention. The patient's respiratory status decompensated during the procedure likely because of contrast used as well as overall status requiring him to be propped up further. We used heparin for anticoagulation. We used a Runthrough wire to cross the lesion with moderate difficulty. We initially used a 2.5 noncompliant balloon, but unable to cross the lesion. This kept pushing our guide out. So, next used a 1.5 balloon and did serial inflations. We next used a 2.0 balloon and did serial inflations. There was good balloon expansion with then 2.0 balloon. Next, with a 2.5 x 12 mm Resolute drug- eluting stent, but unable to cross the lesion. We next used a [place] wire for a "bennie wire" technique. We were able to cross the lesion with difficulty. We next were able to cross the lesion with our stent. Our stent was deployed at high pressure with good stent expansion. We next reinflated with the stent delivery system balloon again with good expansion. There was residual approximately 10% stenosis noted post procedure. Furthermore, distal to our area of stenosis, there was a 40% stenosis, which was nonobstructive, which we did not intervene on, given only being 40%, as well as concern of using a longer stent would make delivering much more difficult. During this procedure, the patient with recurrent episodes of shortness of breath. He was given 20 Lasix IV. He was also propped up and on BiPAP for the procedure as well. This is a complex case with difficulty with intervention with ballooning as well as with guide engagement given the history of TAVR. All catheters and wires were removed. There were no immediate complications. DIAGNOSES: 1. Myocardial infarction. 2. Coronary artery disease. COMPLICATIONS: None. ESTIMATED BLOOD LOSS: Minimal. CONTRAST USED: 130 mL. RECOMMENDATIONS: Dual antiplatelet therapy for a minimum of 1 year, ideally lifelong. Aggressive risk factor management. Dictated By: JOSEFINA KEATING/LATISHA Conf#: [id number] DID#: [id number] CC: ALLEY ARITA MD;*EndCC* MTDD
[2016-06-01] MEDS ORDERED: FUROSEMIDE 20 MG INJ IV ONE (18:30)
[2016-06-01] MEDS ORDERED: SENNA TAB PO PRN (18:30)
[2016-06-01] MEDS: ATORVASTATIN 80 MG TAB PO SCH (20:43)
[2016-06-01] MEDS: DOCUSATE SODIUM 100 MG CAP PO SCH (20:44)
[2016-06-01] MEDS: MONTELUKAST 10 MG TAB PO SCH (20:44)
[2016-06-01] MEDS: traMADol 50 MG TAB PO PRN (20:48)
[2016-06-02] VITALS (39 sets, daily range): BP systolic 96–134; BP diastolic 53–98; PULSE 68–154; RESP 14–33
[2016-06-02] MEDS: ALBUTEROL/IPRATROPIUM (NEB) 3 ML AMP HHN SCH ×4 (02:09→19:46)
[2016-06-02] MEDS: ONDANSETRON 4 MG INJ IV PRN ×3 (02:34→21:39)
[2016-06-02 05:32] LABS: POTASSIUM 3.9 mmol/L (3.5-5.1)
[2016-06-02 05:33] LABS: CALCIUM 8.2 mg/dl (8.4-10.2); CREATININE 0.9 mg/dl (0.61-1.24)
[2016-06-02 05:34] LABS: MAGNESIUM 2.6 mg/dl (1.7-2.5)
[2016-06-02 05:44] LABS: BASOPHILS % 0.2 % (0.0-2.0); EOSINOPHILS # 0.2 10^3/ul (0.0-0.5); EOSINOPHILS % 1.6 % (0.0-7.0); HEMATOCRIT 30.4 % (42.0-52.0); HEMOGLOBIN 10.1 g/dl (14.0-18.0); LYMPHOCYTES # 1.3 10^3/ul (0.8-2.9); LYMPHOCYTES % 13.3 % (15.0-51.0); MEAN CORPUSCULAR HEMOGLOBIN 32.6 pg (29.0-33.0); MEAN CORPUSCULAR HGB CONC 33.2 g/dl (32.0-37.0); MEAN CORPUSCULAR VOLUME 98.2 fl (82.0-101.0); MEAN PLATELET VOLUME 8.6 fl (7.4-10.4); MONOCYTE # 0.7 10^3/ul (0.3-0.9); MONOCYTES % 6.7 % (0.0-11.0); NEUTROPHIL # 7.8 10^3/ul (1.6-7.5); NEUTROPHILS % 78.2 % (39.0-77.0); PLATELET COUNT 260 10^3/UL (140-440); RED CELL DISTRIBUTION WIDTH 17.3 % (11.5-14.5)
[2016-06-02 05:56] LABS: CONDITION 1; LH ANALYZER COMMENTS 1
[2016-06-02] MEDS: INSULIN ASPART [NOVOLOG] 3 ML PEN SC SCH ×4 (07:35→20:44)
[2016-06-02] MEDS ORDERED: AMIODARONE 150MG/D5W BOLUS 100 ML IV ONE (08:00)
[2016-06-02] MEDS ORDERED: DILTIAZEM 25 MG INJ IV ONE (08:00)
[2016-06-02] MEDS ORDERED: DILTIAZEM 25 MG INJ ONE (08:01)
[2016-06-02] MEDS: ASPIRIN (EC) 81 MG TAB PO SCH (08:39)
[2016-06-02] MEDS: predniSONE 20 MG TAB PO SCH (08:39)
[2016-06-02] MEDS: CLOPIDOGREL 75 MG TAB PO SCH (08:39)
[2016-06-02] MEDS: GABAPENTIN 300 MG CAP PO SCH ×3 (08:40→20:39)
[2016-06-02] MEDS: HEPARIN 5,000 UNIT/0.5 ML SYG SC SCH (08:44)
--- NOTE | 2016-06-02 09:19 | RADRPT ---
PROCEDURE: XR Chest. CLINICAL INDICATION: Pneumonia, CHF TECHNIQUE: An AP view of the chest was obtained. COMPARISON: Chest x-ray dated 06/01/2016 FINDINGS: There is a right upper extremity PICC line with tip in the region of the mid SVC. Evaluation of the left lung is limited secondary to overlying defibrillator pad. There is prominenc e of the interstitial and central pulmonary vascular markings. There are diffuse bilateral intersti tial opacities. There are small bilateral pleural effusions. No focal airspace opacification or pneu mothorax is seen. The cardiomediastinal silhouette is mildly enlarged . Calcifications are seen wi thin the aortic arch. The osseous structures demonstrate senescent changes. There are post procedu ral changes from thoracic and lumbar kyphoplasty. IMPRESSION: 1. Findings suggestive of pulmonary vascular congestion with bilateral interstitial opacities whic h may reflect interstitial edema or superimposed pneumonia. No significant interval change. 2. Small bilateral pleural effusions. 3. Mild cardiomegaly and aortic atherosclerosis. RPTAT: .Griselda Diego MD, Date Time Electronically viewed and signed by .Griselda Diego MD, on 06/02/2016 09:18 .G/
--- NOTE | 2016-06-02 09:27 | PN ---
Date/Time of Note Date/Time of Note DATE: 06/02/16 TIME: 09:18 Assessment/Plan VTE Prophylaxis VTE Prophylaxis Intervention: SCD's Lines/Catheters IV Catheter Type (from Nrsg): PICC Line Central line still needed: Yes (for IV access ) Urinary Cath still in place: Yes Reason Cath still needed: other (indicate) (monitor UOP ) Assessment/Plan Assessment/Plan 80 yo male with: 1. NSTEMI, patient s/p TAVR and with cardiomyopathy with troponin picked up at 13, S/p PTCA yesterday with 1 stent to circ. Now in A fib post procedure Echo with EF 30% on Amio gtt and ICU monitoring On NC this AM 2. COPD, O2 dependent: on NC currently and BiPAP prn Continue Prednisone to 40 daily for now and will taper further slowly back to outpatient dosing. Nebs rx , Advair and Spiriva 3. JOE on CKD: Appreciate Dr Cordero's recommendations, resolved Renal function recovered and electrolytes stable Continue to monitor post angio 4. S/p accidental fall last weekend and with RLE Hematoma and RUE ecchymosis and right rib fractures Pain control with Percocet prn and Tramadol prn Hb stable and CT right LE noted. Continue to monitor 5. Acute on chronic Anemia with hematomas and blood loss: s/p 2 units pRBC and stable Hb since then Monitor h/h 6. Chronic back pain with acute component now with rib fractures: Percocet and tramadol prn 7. Hypertension: Currently low BP so holding Diovan 8. Congestive heart failure, systolic dysfunction EF 30 % on echo. S/p episode of volume overload and respiratory distress requiring BIPAP, diuresis prn and ICU monitoring 9. Temporal arteritis. The patient is already on prednisone. 10. Previous history of transient ischemic attack. Patient's mental status is stable and at baseline. Monitor Prophylaxis: SCDs as tolerated, PPI for GI ppx while on steroids especially Disposition: Monitoring in ICU for respiratory status and until control of A fib. Subjective 24 Hr Interval Summary Free Text/Dictation Patient in and out of A fib last night and currently in A fib with RVR, hemodynamically stable and on Amio gtt Off BiPAP an on NC this AM Exam/Review of Systems Vital Signs Vitals Vital Signs Date Time Temp Pulse Resp B/P Pulse Ox O2 Delivery O2 Flow Rate FiO2 06/02/16 07:00 74 14 125/53 100 Nasal Cannula 06/02/16 05:57 4.0 06/02/16 04:00 98.1 06/02/16 01:55 35 Intake and Output 06/01/16 06/01/16 06/02/16 15:00 23:00 07:00 Intake Total 233.33 ml 345.10 ml 83.5 ml Output Total 1600 ml 860 ml 260 ml Balance -1366.67 ml -514.90 ml -176.5 ml Exam Constitutional: alert, frail, oriented, other (improved respiratory status ) Respiratory: congested cough (occasionally ), diminished breath sounds (bases bilaterally ) Cardiovascular: irregular rhythm (A fib uncontrolled ) Gastrointestinal: non-tender, soft Musculoskeletal: nl extremities to inspection Extremities: normal pulses, other (no clubbing or cyanosis ) 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: COFFEE BLENDER II-XII intact, nl mental status, nl speech, other ( generalized weakness ) Results Result Diagram: 06/02/16 0400 06/02/16 0400 Results 24 hrs Laboratory Tests Test 06/01/16 17:43 06/01/16 20:34 06/02/16 04:00 06/02/16 08:18 Bedside Glucose 132 123 99 Anion Gap 8 Basophils # 0.0 Basophils % 0.2 Blood Morphology Comment Blood Urea Nitrogen 29 H Calcium Level 8.2 L Carbon Dioxide Level 35 H Chloride Level 105 Creatinine 0.90 Eosinophils # 0.2 Eosinophils % 1.6 Glucose Level 108 Hematocrit 30.4 L Hemoglobin 10.1 L Lymphocytes # 1.3 Lymphocytes % 13.3 L Magnesium Level 2.6 H Mean Corpuscular Hemoglobin 32.6 Mean Corpuscular Hemoglobin Concent 33.2 Mean Corpuscular Volume 98.2 Mean Platelet Volume 8.6 Monocytes # 0.7 Monocytes % 6.7 Neutrophils # 7.8 H Neutrophils % 78.2 H Nucleated Red Blood Cells # 0.0 Nucleated Red Blood Cells % 0.0 Phosphorus Level 3.0 Platelet Count 260 Potassium Level 3.9 Red Blood Count 3.10 L Red Cell Distribution Width 17.3 H Sodium Level 144 White Blood Count 10.0 # Medications Medications Current Medications Aspirin (Halfprin) 81 mg DAILY PO Last administered on 06/02/16at 08:39; Admin Dose 81 MG; Start 05/27/16 at 09:00 Clopidogrel Bisulfate (plaVIX) 75 mg DAILY PO Last administered on 06/02/16 08:39; Admin Dose 75 MG; Start 05/27/16 at 09:00 Ferrous Sulfate (Ferrous Sulfate (Ec)) 325 mg BID PO Last administered on 06/01 20:43; Admin Dose 325 MG; Start 05/27/16 at 09:00 Fluticasone Propionate (Flonase 0.05% Nasal) 1 spray BID NASAL Last administered on 06/01/16 20:43; Admin Dose 1 SPRAY; Start 05/27/16 at 09:00 Gabapentin (Neurontin) 300 mg TID PO Last administered on 06/02/16 08:40; Admin Dose 300 MG; Start 05/27/16 at 09:00 Guaifenesin/ Dextromethorphan (Robitussin Dm Liquid Cup) 10 ml Q4H PRN PO COUGH ; Start 05/26/16 at 21:30 Montelukast Sodium (Singulair) 10 mg HS PO Last administered on 06/01/16at 20: 44; Admin Dose 10 MG; Start 05/27/16 at 21:00 Oxycodone/ Acetaminophen (Endocet (10/ 325)) 1 tab Q6 PRN PO PAIN; Start 05/26 at 21:30 Salmeterol Xinafoate/ Fluticasone (Advair 500/50 Diskus) 1 inh BID INH Last administered on 06/01/16at 20:45; Admin Dose 1 INH; Start 05/27/16 at 09:00 Acetaminophen (Tylenol Tab) 650 mg Q4H PRN PO pain/fever; Start 05/26/16 at 21 :30 Ondansetron HCl (Zofran Inj) 4 mg Q4H PRN IV nausea Last administered on 08:11; Admin Dose 4 MG; Start 05/26/16 at 21:30 Guaifenesin/ Dextromethorphan (Mucinex Dm) 1 tab BID PO Last administered on 21:33; Admin Dose 1 TAB; Start 05/27/16 at 09:00 Fish Oil (Fish Oil) 1,000 mg DAILY PO Last administered on 05/30/16 10:26; Admin Dose 1,000 MG; Start 05/27/16 at 09:00 Atorvastatin Calcium (Lipitor) 80 mg DAILY@21 PO Last administered on at 20:43; Admin Dose 80 MG; Start 05/27/16 at 00:00 Tramadol HCl (Ultram) 50 mg Q6H PRN PO PAIN Last administered on 06/01/16at 20: 48; Admin Dose 50 MG; Start 05/27/16 at 14:00 Miscellaneous Information 1 ea NOTE XX ; Start 05/27/16 at 18:30 Glucose (Glutose) 15 gm Q15M PRN PO DECREASED GLUCOSE; Start 05/27/16 at 18:30 Glucose (Glutose) 22.5 gm Q15M PRN PO DECREASED GLUCOSE; Start 05/27/16 at 18: 30 Dextrose (D50w Syringe) 25 ml Q15M PRN IV DECREASED GLUCOSE; Start 05/27/16 at 18:30 Dextrose (D50w Syringe) 50 ml Q15M PRN IV DECREASED GLUCOSE; Start 05/27/16 at 18:30 Glucagon (Glucagen) 1 mg Q15M PRN IM DECREASED GLUCOSE; Start 05/27/16 at 18: 30 Glucose (Glutose) 15 gm Q15M PRN BUCCAL DECREASED GLUCOSE; Start 05/27/16 at 18:30 IV Flush (NS 10 ml) 10 ml PRN PRN IV IV PROTOCOL; Start 05/28/16 at 17:30 Prednisone (Prednisone) 40 mg DAILY PO Last administered on 06/02/16at 08:39; Admin Dose 40 MG; Start 05/30/16 at 09:00 Heparin Sodium (Porcine) (Heparin (5000 Units/0.5 ml)) 5,000 unit Q12 SC Last administered on 06/02/16at 08:44; Admin Dose 5,000 UNIT; Start 05/30/16 at 09: 00 Potassium Chloride (Klor-Con 20) 20 meq BID PO Last administered on 06/01/16at 20:43; Admin Dose 20 MEQ; Start 05/30/16 at 14:00 Morphine Sulfate (morphine) 1 mg Q4H PRN IV PAIN Last administered on at 21:43; Admin Dose 1 MG; Start 06/01/16 at 09:30 Miscellaneous Information Hold all Metformin ... ONCE XX Last administered on 06/01/16at 14:09; Admin Dose 1 EA; Start 06/01/16 at 13:30; Stop 06/03/16 at 13:29 Amiodarone HCl/ Dextrose (Cordarone Iv/ D5W) 500 ml @ 0 mls/hr Q0M IV Last administered on 06/01/16at 14:21; Admin Dose 33.4 MLS/HR; Start 06/01/16 at 15: 00 Docusate Sodium (Colace) 100 mg BID PO Last administered on 06/01/16at 20:44; Admin Dose 100 MG; Start 06/01/16 at 21:00 Senna (Senokot) 1 tab BID PRN PO CONSTIPATION; Start 06/01/16 at 18:30 RICHIE SWEET Jun 02, 2016 09:27
[2016-06-02] MEDS ORDERED: METOPROLOL 50 MG TAB PO STA (10:59)
--- NOTE | 2016-06-02 11:18 | CONS ---
Date/Time of Note Date/Time of Note DATE: 06/02/16 TIME: 11:11 Consult Date/Type/Reason Admit Date/Time May 26, 2016 at 19:17 Initial Consult Date 05/28/16 Type of Consultation: pulmonary Subjective Patient is awake alert comfortable this morning mild tachypnea Talking in full and complete sentences Remains hemodynamically stable Objective Vital Signs Date Time Temp Pulse Resp B/P Pulse Ox O2 Delivery O2 Flow Rate FiO2 06/02/16 10:30 112 24 119/69 06/02/16 09:47 100 Nasal Cannula 6.0 06/02/16 08:00 98.4 06/02/16 01:55 35 Intake and Output 06/01/16 06/01/16 06/02/16 15:00 23:00 07:00 Intake Total 233.33 ml 345.10 ml 83.5 ml Output Total 1600 ml 860 ml 260 ml Balance -1366.67 ml -514.90 ml -176.5 ml GENERAL: Elderly gentleman awake alert oriented comfortable at rest VITAL SIGNS: per chart NECK: Supple. No JVD or lymphadenopathy. CARDIAC EXAM: S1, S2. No added sounds or murmurs. CHEST: clear bilaterally, No added sounds, rales or wheezes ABDOMEN: Soft, nontender. No guarding or rebound. EXTREMITIES: No cyanosis, clubbing or edema. NEUROLOGIC: Generalized weakness. No focal deficits. Results/Medications Result Diagram: 06/02/16 0400 06/02/16 0400 Results 24 hrs Laboratory Tests Test 06/01/16 17:43 06/01/16 20:34 06/02/16 04:00 06/02/16 08:18 Bedside Glucose 132 123 99 Anion Gap 8 Basophils # 0.0 Basophils % 0.2 Blood Morphology Comment Blood Urea Nitrogen 29 H Calcium Level 8.2 L Carbon Dioxide Level 35 H Chloride Level 105 Creatinine 0.90 Eosinophils # 0.2 Eosinophils % 1.6 Glucose Level 108 Hematocrit 30.4 L Hemoglobin 10.1 L Lymphocytes # 1.3 Lymphocytes % 13.3 L Magnesium Level 2.6 H Mean Corpuscular Hemoglobin 32.6 Mean Corpuscular Hemoglobin Concent 33.2 Mean Corpuscular Volume 98.2 Mean Platelet Volume 8.6 Monocytes # 0.7 Monocytes % 6.7 Neutrophils # 7.8 H Neutrophils % 78.2 H Nucleated Red Blood Cells # 0.0 Nucleated Red Blood Cells % 0.0 Phosphorus Level 3.0 Platelet Count 260 Potassium Level 3.9 Red Blood Count 3.10 L Red Cell Distribution Width 17.3 H Sodium Level 144 White Blood Count 10.0 # Medications Current Medications Aspirin (Halfprin) 81 mg DAILY PO Last administered on 06/02/16 08:39; Admin Dose 81 MG; Start 05/27/16 at 09:00 Clopidogrel Bisulfate (plaVIX) 75 mg DAILY PO Last administered on 06/02/16 08:39; Admin Dose 75 MG; Start 05/27/16 at 09:00 Ferrous Sulfate (Ferrous Sulfate (Ec)) 325 mg BID PO Last administered on 06/01 20:43; Admin Dose 325 MG; Start 05/27/16 at 09:00 Fluticasone Propionate (Flonase 0.05% Nasal) 1 spray BID NASAL Last administered on 06/01/16 20:43; Admin Dose 1 SPRAY; Start 05/27/16 at 09:00 Gabapentin (Neurontin) 300 mg TID PO Last administered on 06/02/16 08:40; Admin Dose 300 MG; Start 05/27/16 at 09:00 Guaifenesin/ Dextromethorphan (Robitussin Dm Liquid Cup) 10 ml Q4H PRN PO COUGH ; Start 05/26/16 at 21:30 Montelukast Sodium (Singulair) 10 mg HS PO Last administered on 06/01/16 20: 44; Admin Dose 10 MG; Start 05/27/16 at 21:00 Oxycodone/ Acetaminophen (Endocet (10/ 325)) 1 tab Q6 PRN PO PAIN; Start 05/26 at 21:30 Salmeterol Xinafoate/ Fluticasone (Advair 500/50 Diskus) 1 inh BID INH Last administered on 06/01/16 20:45; Admin Dose 1 INH; Start 05/27/16 at 09:00 Acetaminophen (Tylenol Tab) 650 mg Q4H PRN PO pain/fever; Start 05/26/16 at 21 :30 Ondansetron HCl (Zofran Inj) 4 mg Q4H PRN IV nausea Last administered on 08:11; Admin Dose 4 MG; Start 05/26/16 at 21:30 Guaifenesin/ Dextromethorphan (Mucinex Dm) 1 tab BID PO Last administered on at 21:33; Admin Dose 1 TAB; Start 05/27/16 at 09:00 Fish Oil (Fish Oil) 1,000 mg DAILY PO Last administered on 05/30/16at 10:26; Admin Dose 1,000 MG; Start 05/27/16 at 09:00 Atorvastatin Calcium (Lipitor) 80 mg DAILY@21 PO Last administered on at 20:43; Admin Dose 80 MG; Start 05/27/16 at 00:00 Tramadol HCl (Ultram) 50 mg Q6H PRN PO PAIN Last administered on 06/01/16at 20: 48; Admin Dose 50 MG; Start 05/27/16 at 14:00 Miscellaneous Information 1 ea NOTE XX ; Start 05/27/16 at 18:30 Glucose (Glutose) 15 gm Q15M PRN PO DECREASED GLUCOSE; Start 05/27/16 at 18:30 Glucose (Glutose) 22.5 gm Q15M PRN PO DECREASED GLUCOSE; Start 05/27/16 at 18: 30 Dextrose (D50w Syringe) 25 ml Q15M PRN IV DECREASED GLUCOSE; Start 05/27/16 at 18:30 Dextrose (D50w Syringe) 50 ml Q15M PRN IV DECREASED GLUCOSE; Start 05/27/16 at 18:30 Glucagon (Glucagen) 1 mg Q15M PRN IM DECREASED GLUCOSE; Start 05/27/16 at 18: 30 Glucose (Glutose) 15 gm Q15M PRN BUCCAL DECREASED GLUCOSE; Start 05/27/16 at 18:30 IV Flush (NS 10 ml) 10 ml PRN PRN IV IV PROTOCOL; Start 05/28/16 at 17:30 Prednisone (Prednisone) 40 mg DAILY PO Last administered on 06/02/16at 08:39; Admin Dose 40 MG; Start 05/30/16 at 09:00 Heparin Sodium (Porcine) (Heparin (5000 Units/0.5 ml)) 5,000 unit Q12 SC Last administered on 06/02/16at 08:44; Admin Dose 5,000 UNIT; Start 05/30/16 at 09: 00 Potassium Chloride (Klor-Con 20) 20 meq BID PO Last administered on 06/01/16at 20:43; Admin Dose 20 MEQ; Start 05/30/16 at 14:00 Morphine Sulfate (morphine) 1 mg Q4H PRN IV PAIN Last administered on at 21:43; Admin Dose 1 MG; Start 06/01/16 at 09:30 Miscellaneous Information Hold all Metformin ... ONCE XX Last administered on 06/01/16at 14:09; Admin Dose 1 EA; Start 06/01/16 at 13:30; Stop 06/03/16 at 13:29 Amiodarone HCl/ Dextrose (Cordarone Iv/ D5W) 500 ml @ 0 mls/hr Q0M IV Last administered on 06/01/16at 14:21; Admin Dose 33.4 MLS/HR; Start 06/01/16 at 15: 00 Docusate Sodium (Colace) 100 mg BID PO Last administered on 06/01/16at 20:44; Admin Dose 100 MG; Start 06/01/16 at 21:00 Senna (Senokot) 1 tab BID PRN PO CONSTIPATION; Start 06/01/16 at 18:30 Assessment/Plan Chief Complaint/Hosp Course IMPRESSION AND PLAN: 1. Congestive cardiac failure. 2. Possible chronic obstructive pulmonary disease exacerbation. 3. Non-ST elevation NC. Status post cardiac catheterization found to have mild disease requiring medical management 4. Gentle diuresis. 5. Antibiotics for pneumonia 6. DVT and GI prophylaxis. Problems: SIOMARA GARZA MD, [facility] Jun 02, 2016 11:18
[2016-06-02] MEDS: FLUTICASONE 0.05% 16 GM NAS SPRAY NASAL SCH ×2 (11:33→20:43)
[2016-06-02] MEDS: SALMETEROL/FLUTICASONE 500/50 INHA INH SCH ×2 (11:33→20:42)
[2016-06-02] MEDS: GUAIFENESIN/DM (SR) TAB PO SCH ×2 (11:34→20:39)
[2016-06-02] MEDS: FERROUS SULFATE (EC) 325 MG TAB PO SCH ×2 (11:35→20:40)
[2016-06-02] MEDS: DOCUSATE SODIUM 100 MG CAP PO SCH ×2 (11:35→20:39)
[2016-06-02] MEDS: POTASSIUM CHLORIDE (SR) 20 MEQ TAB PO SCH ×2 (11:36→20:40)
[2016-06-02] MEDS: FISH OIL 1,000 MG CAP PO SCH (11:36)
--- NOTE | 2016-06-02 12:49 | CONS ---
Date/Time of Note Date/Time of Note DATE: 06/02/16 TIME: 12:44 Assessment/Plan Assessment/Plan Additional Assessment/Plan Non-ST elevation SC status post drug-eluting stenting to circumflex 06/01/2016 Respiratory Failure Acute Decompensated Systolic CHF Paroxysmal atrial fibrillation, currently with rapid ventricular rates Acute kidney injury, improving Cardiomyopathy ejection fraction 35% Acute blood loss anemia Mechanical fall with rib fractures and right lower extremity trauma Mild to moderate coronary artery disease based on catheterization in October 2014. Aortic stenosis, status post transcatheter aortic valve replacement in January 2015. Chronic obstructive pulmonary disease on home oxygen. -Patient with recurrent atrial fibrillation this morning with rapid ventricular rates, modest improvement with IV Cardizem push, would try trial of beta blockers will close monitoring for worsening shortness of breath given history of pulmonary disease. Continue aspirin, Plavix and statin therapy. One dose of Lasix today, if heart rate not well-controlled, consider initiation of IV Cardizem drip Consultation Date/Type/Reason Admit Date/Time May 26, 2016 at 19:17 Type of Consultation: cv 24 HR Interval Summary Free Text/Dictation Patient with improvement in shortness of breath, converted to sinus rhythm overnight and back into H with fibrillation this morning. Denies chest pain Exam/Review of Systems Vital Signs Vitals Vital Signs Date Time Temp Pulse Resp B/P Pulse Ox O2 Delivery O2 Flow Rate FiO2 06/02/16 10:30 112 24 119/69 06/02/16 09:47 100 Nasal Cannula 6.0 06/02/16 08:00 98.4 06/02/16 01:55 35 Intake and Output 06/01/16 06/01/16 06/02/16 15:00 23:00 07:00 Intake Total 233.33 ml 345.10 ml 83.5 ml Output Total 1600 ml 860 ml 260 ml Balance -1366.67 ml -514.90 ml -176.5 ml Exam Constitutional: alert, oriented Head: normocephalic Neck: supple Respiratory: other (course breath sounds with scattered rhonchi, mild wheezing) Cardiovascular: irregular rhythm, other (S1-S2 heard) Gastrointestinal: bowel sounds, non-tender, soft Extremities: edema Results Result Diagram: 06/02/16 0400 06/02/16 0400 Results 24 hrs Laboratory Tests Test 06/01/16 17:43 06/01/16 20:34 06/02/16 04:00 06/02/16 08:18 Bedside Glucose 132 123 99 Anion Gap 8 Basophils # 0.0 Basophils % 0.2 Blood Morphology Comment Blood Urea Nitrogen 29 H Calcium Level 8.2 L Carbon Dioxide Level 35 H Chloride Level 105 Creatinine 0.90 Eosinophils # 0.2 Eosinophils % 1.6 Glucose Level 108 Hematocrit 30.4 L Hemoglobin 10.1 L Lymphocytes # 1.3 Lymphocytes % 13.3 L Magnesium Level 2.6 H Mean Corpuscular Hemoglobin 32.6 Mean Corpuscular Hemoglobin Concent 33.2 Mean Corpuscular Volume 98.2 Mean Platelet Volume 8.6 Monocytes # 0.7 Monocytes % 6.7 Neutrophils # 7.8 H Neutrophils % 78.2 H Nucleated Red Blood Cells # 0.0 Nucleated Red Blood Cells % 0.0 Phosphorus Level 3.0 Platelet Count 260 Potassium Level 3.9 Red Blood Count 3.10 L Red Cell Distribution Width 17.3 H Sodium Level 144 White Blood Count 10.0 # Test 06/02/16 11:44 Bedside Glucose 108 Medications Medications Current Medications Aspirin (Halfprin) 81 mg DAILY PO Last administered on 06/02/16at 08:39; Admin Dose 81 MG; Start 05/27/16 at 09:00 Clopidogrel Bisulfate (plaVIX) 75 mg DAILY PO Last administered on 06/02/16at 08:39; Admin Dose 75 MG; Start 05/27/16 at 09:00 Ferrous Sulfate (Ferrous Sulfate (Ec)) 325 mg BID PO Last administered on 06/02at 11:35; Admin Dose 325 MG; Start 05/27/16 at 09:00 Fluticasone Propionate (Flonase 0.05% Nasal) 1 spray BID NASAL Last administered on 06/02/16at 11:33; Admin Dose 1 SPRAY; Start 05/27/16 at 09:00 Gabapentin (Neurontin) 300 mg TID PO Last administered on 06/02/16 08:40; Admin Dose 300 MG; Start 05/27/16 at 09:00 Guaifenesin/ Dextromethorphan (Robitussin Dm Liquid Cup) 10 ml Q4H PRN PO COUGH ; Start 05/26/16 at 21:30 Montelukast Sodium (Singulair) 10 mg HS PO Last administered on 06/01/16at 20: 44; Admin Dose 10 MG; Start 05/27/16 at 21:00 Oxycodone/ Acetaminophen (Endocet (10/ 325)) 1 tab Q6 PRN PO PAIN; Start 05/26 at 21:30 Salmeterol Xinafoate/ Fluticasone (Advair 500/50 Diskus) 1 inh BID INH Last administered on 06/02/16at 11:33; Admin Dose 1 INH; Start 05/27/16 at 09:00 Acetaminophen (Tylenol Tab) 650 mg Q4H PRN PO pain/fever; Start 05/26/16 at 21 :30 Ondansetron HCl (Zofran Inj) 4 mg Q4H PRN IV nausea Last administered on at 08:11; Admin Dose 4 MG; Start 05/26/16 at 21:30 Guaifenesin/ Dextromethorphan (Mucinex Dm) 1 tab BID PO Last administered on at 11:34; Admin Dose 1 TAB; Start 05/27/16 at 09:00 Fish Oil (Fish Oil) 1,000 mg DAILY PO Last administered on 06/02/16at 11:36; Admin Dose 1,000 MG; Start 05/27/16 at 09:00 Atorvastatin Calcium (Lipitor) 80 mg DAILY@21 PO Last administered on at 20:43; Admin Dose 80 MG; Start 05/27/16 at 00:00 Tramadol HCl (Ultram) 50 mg Q6H PRN PO PAIN Last administered on 06/01/16at 20: 48; Admin Dose 50 MG; Start 05/27/16 at 14:00 Miscellaneous Information 1 ea NOTE XX ; Start 05/27/16 at 18:30 Glucose (Glutose) 15 gm Q15M PRN PO DECREASED GLUCOSE; Start 05/27/16 at 18:30 Glucose (Glutose) 22.5 gm Q15M PRN PO DECREASED GLUCOSE; Start 05/27/16 at 18: 30 Dextrose (D50w Syringe) 25 ml Q15M PRN IV DECREASED GLUCOSE; Start 05/27/16 at 18:30 Dextrose (D50w Syringe) 50 ml Q15M PRN IV DECREASED GLUCOSE; Start 05/27/16 at 18:30 Glucagon (Glucagen) 1 mg Q15M PRN IM DECREASED GLUCOSE; Start 05/27/16 at 18: 30 Glucose (Glutose) 15 gm Q15M PRN BUCCAL DECREASED GLUCOSE; Start 05/27/16 at 18:30 IV Flush (NS 10 ml) 10 ml PRN PRN IV IV PROTOCOL; Start 05/28/16 at 17:30 Prednisone (Prednisone) 40 mg DAILY PO Last administered on 06/02/16 08:39; Admin Dose 40 MG; Start 05/30/16 at 09:00 Heparin Sodium (Porcine) (Heparin (5000 Units/0.5 ml)) 5,000 unit Q12 SC Last administered on 06/02/16 08:44; Admin Dose 5,000 UNIT; Start 05/30/16 at 09: 00 Potassium Chloride (Klor-Con 20) 20 meq BID PO Last administered on 06/02/16 11:36; Admin Dose 20 MEQ; Start 05/30/16 at 14:00 Morphine Sulfate (morphine) 1 mg Q4H PRN IV PAIN Last administered on 21:43; Admin Dose 1 MG; Start 06/01/16 at 09:30 Miscellaneous Information Hold all Metformin ... ONCE XX Last administered on 06/01/16 14:09; Admin Dose 1 EA; Start 06/01/16 at 13:30; Stop 06/03/16 at 13:29 Amiodarone HCl/ Dextrose (Cordarone Iv/ D5W) 500 ml @ 0 mls/hr Q0M IV Last administered on 06/01/16 14:21; Admin Dose 33.4 MLS/HR; Start 06/01/16 at 15: 00 Docusate Sodium (Colace) 100 mg BID PO Last administered on 06/02/16at 11:35; Admin Dose 100 MG; Start 06/01/16 at 21:00 Senna (Senokot) 1 tab BID PRN PO CONSTIPATION; Start 06/01/16 at 18:30 Calos Peralta DO Jun 02, 2016 12:49
--- NOTE | 2016-06-02 12:52 | CONS ---
Date/Time of Note Date/Time of Note DATE: 06/02/16 TIME: 12:51 Assessment/Plan Assessment/Plan Chief Complaint/Hosp Course - Acute Kidney Injury post Contrast - CKD ( ? HTN Nephrosclerosis ) - Acute [place] - Hyperkalemia - ? Rhabdomyolysis - COPD - Hx of Temporal Arteritis - CAD/CHF PLAN: Improving Creatinine & ATN Tolerated Cardiac Angiogram well Renal back to baseline Continue with Monitoring renal function Problems: Consultation Date/Type/Reason Admit Date/Time May 26, 2016 at 19:17 Initial Consult Date 05/28/16 Type of Consultation: Nephrology Reason for Consultation Acute Kidney Injury 24 HR Interval Summary Constitutional: improved Exam/Review of Systems Vital Signs Vitals Vital Signs Date Time Temp Pulse Resp B/P Pulse Ox O2 Delivery O2 Flow Rate FiO2 06/02/16 10:30 112 24 119/69 06/02/16 09:47 100 Nasal Cannula 6.0 06/02/16 08:00 98.4 06/02/16 01:55 35 Intake and Output 06/01/16 06/01/16 06/02/16 15:00 23:00 07:00 Intake Total 233.33 ml 345.10 ml 83.5 ml Output Total 1600 ml 860 ml 260 ml Balance -1366.67 ml -514.90 ml -176.5 ml Exam Constitutional: alert Psych: no complaints Eyes: nl conjunctiva Respiratory: crackles/rales Cardiovascular: regular rate and rhythm, systolic murmur Gastrointestinal: soft Results Result Diagram: 06/02/16 0400 06/02/16 0400 Results 24 hrs Laboratory Tests Test 06/01/16 17:43 06/01/16 20:34 06/02/16 04:00 06/02/16 08:18 Bedside Glucose 132 123 99 Anion Gap 8 Basophils # 0.0 Basophils % 0.2 Blood Morphology Comment Blood Urea Nitrogen 29 H Calcium Level 8.2 L Carbon Dioxide Level 35 H Chloride Level 105 Creatinine 0.90 Eosinophils # 0.2 Eosinophils % 1.6 Glucose Level 108 Hematocrit 30.4 L Hemoglobin 10.1 L Lymphocytes # 1.3 Lymphocytes % 13.3 L Magnesium Level 2.6 H Mean Corpuscular Hemoglobin 32.6 Mean Corpuscular Hemoglobin Concent 33.2 Mean Corpuscular Volume 98.2 Mean Platelet Volume 8.6 Monocytes # 0.7 Monocytes % 6.7 Neutrophils # 7.8 H Neutrophils % 78.2 H Nucleated Red Blood Cells # 0.0 Nucleated Red Blood Cells % 0.0 Phosphorus Level 3.0 Platelet Count 260 Potassium Level 3.9 Red Blood Count 3.10 L Red Cell Distribution Width 17.3 H Sodium Level 144 White Blood Count 10.0 # Test 06/02/16 11:44 Bedside Glucose 108 Medications Medications Current Medications Aspirin (Halfprin) 81 mg DAILY PO Last administered on 06/02/16 08:39; Admin Dose 81 MG; Start 05/27/16 at 09:00 Clopidogrel Bisulfate (plaVIX) 75 mg DAILY PO Last administered on 06/02/16 08:39; Admin Dose 75 MG; Start 05/27/16 at 09:00 Ferrous Sulfate (Ferrous Sulfate (Ec)) 325 mg BID PO Last administered on 06/02 11:35; Admin Dose 325 MG; Start 05/27/16 at 09:00 Fluticasone Propionate (Flonase 0.05% Nasal) 1 spray BID NASAL Last administered on 06/02/16 11:33; Admin Dose 1 SPRAY; Start 05/27/16 at 09:00 Gabapentin (Neurontin) 300 mg TID PO Last administered on 06/02/16 08:40; Admin Dose 300 MG; Start 05/27/16 at 09:00 Guaifenesin/ Dextromethorphan (Robitussin Dm Liquid Cup) 10 ml Q4H PRN PO COUGH ; Start 05/26/16 at 21:30 Montelukast Sodium (Singulair) 10 mg HS PO Last administered on 06/01/16at 20: 44; Admin Dose 10 MG; Start 05/27/16 at 21:00 Oxycodone/ Acetaminophen (Endocet (10/ 325)) 1 tab Q6 PRN PO PAIN; Start 05/26 at 21:30 Salmeterol Xinafoate/ Fluticasone (Advair 500/50 Diskus) 1 inh BID INH Last administered on 06/02/16 11:33; Admin Dose 1 INH; Start 05/27/16 at 09:00 Acetaminophen (Tylenol Tab) 650 mg Q4H PRN PO pain/fever; Start 05/26/16 at 21 :30 Ondansetron HCl (Zofran Inj) 4 mg Q4H PRN IV nausea Last administered on at 08:11; Admin Dose 4 MG; Start 05/26/16 at 21:30 Guaifenesin/ Dextromethorphan (Mucinex Dm) 1 tab BID PO Last administered on at 11:34; Admin Dose 1 TAB; Start 05/27/16 at 09:00 Fish Oil (Fish Oil) 1,000 mg DAILY PO Last administered on 06/02/16at 11:36; Admin Dose 1,000 MG; Start 05/27/16 at 09:00 Atorvastatin Calcium (Lipitor) 80 mg DAILY@21 PO Last administered on at 20:43; Admin Dose 80 MG; Start 05/27/16 at 00:00 Tramadol HCl (Ultram) 50 mg Q6H PRN PO PAIN Last administered on 06/01/16at 20: 48; Admin Dose 50 MG; Start 05/27/16 at 14:00 Miscellaneous Information 1 ea NOTE XX ; Start 05/27/16 at 18:30 Glucose (Glutose) 15 gm Q15M PRN PO DECREASED GLUCOSE; Start 05/27/16 at 18:30 Glucose (Glutose) 22.5 gm Q15M PRN PO DECREASED GLUCOSE; Start 05/27/16 at 18: 30 Dextrose (D50w Syringe) 25 ml Q15M PRN IV DECREASED GLUCOSE; Start 05/27/16 at 18:30 Dextrose (D50w Syringe) 50 ml Q15M PRN IV DECREASED GLUCOSE; Start 05/27/16 at 18:30 Glucagon (Glucagen) 1 mg Q15M PRN IM DECREASED GLUCOSE; Start 05/27/16 at 18: 30 Glucose (Glutose) 15 gm Q15M PRN BUCCAL DECREASED GLUCOSE; Start 05/27/16 at 18:30 IV Flush (NS 10 ml) 10 ml PRN PRN IV IV PROTOCOL; Start 05/28/16 at 17:30 Prednisone (Prednisone) 40 mg DAILY PO Last administered on 06/02/16at 08:39; Admin Dose 40 MG; Start 05/30/16 at 09:00 Heparin Sodium (Porcine) (Heparin (5000 Units/0.5 ml)) 5,000 unit Q12 SC Last administered on 06/02/16at 08:44; Admin Dose 5,000 UNIT; Start 05/30/16 at 09: 00 Potassium Chloride (Klor-Con 20) 20 meq BID PO Last administered on 06/02/16at 11:36; Admin Dose 20 MEQ; Start 05/30/16 at 14:00 Morphine Sulfate (morphine) 1 mg Q4H PRN IV PAIN Last administered on at 21:43; Admin Dose 1 MG; Start 06/01/16 at 09:30 Miscellaneous Information Hold all Metformin ... ONCE XX Last administered on 06/01/16at 14:09; Admin Dose 1 EA; Start 06/01/16 at 13:30; Stop 06/03/16 at 13:29 Amiodarone HCl/ Dextrose (Cordarone Iv/ D5W) 500 ml @ 0 mls/hr Q0M IV Last administered on 06/01/16at 14:21; Admin Dose 33.4 MLS/HR; Start 06/01/16 at 15: 00 Docusate Sodium (Colace) 100 mg BID PO Last administered on 06/02/16at 11:35; Admin Dose 100 MG; Start 06/01/16 at 21:00 Senna (Senokot) 1 tab BID PRN PO CONSTIPATION; Start 06/01/16 at 18:30 Metoprolol Tartrate (Lopressor) 50 mg BID PO ; Start 06/02/16 at 21:00; Status UNV Furosemide (Lasix) 20 mg ONCE ONCE IV ; Start 06/02/16 at 13:00; Stop at 13:01; Status GUSTAVOV PATT FARRELL MD Jun 02, 2016 12:52
[2016-06-02] MEDS ORDERED: FUROSEMIDE 20 MG INJ IV ONE (13:00)
[2016-06-02] MEDS: AMIODARONE 900 MG in DEXTROSE 5% 482 ML IV SCH (15:00)
[2016-06-02] MEDS: morphine 2 MG INJ IV PRN (16:51)
[2016-06-02] MEDS ORDERED: ENOXAPARIN 80 MG/0.8 ML SYG SC SCH (18:00)
[2016-06-02] MEDS ORDERED: DIGOXIN 500 MCG INJ IV ONE (20:30)
[2016-06-02] MEDS: MONTELUKAST 10 MG TAB PO SCH (20:40)
[2016-06-02] MEDS: ATORVASTATIN 80 MG TAB PO SCH (20:40)
[2016-06-02] MEDS: traMADol 50 MG TAB PO PRN (20:40)
[2016-06-02] MEDS: METOPROLOL 50 MG TAB PO SCH (20:44)
[2016-06-03] VITALS (24 sets, daily range): BP systolic 98–143; BP diastolic 53–125; PULSE 57–128; RESP 12–24
[2016-06-03] MEDS: morphine 2 MG INJ IV PRN ×2 (00:30→17:15)
[2016-06-03] MEDS: ALBUTEROL/IPRATROPIUM (NEB) 3 ML AMP HHN SCH ×4 (01:30→19:59)
[2016-06-03 06:43] LABS: ALBUMIN 2.9 g/dl (3.3-4.9)
[2016-06-03 06:44] LABS: POTASSIUM 5.1 mmol/L (3.5-5.1)
[2016-06-03 06:46] LABS: BILIRUBIN,INDIRECT 0.3 mg/dl (0-1.1); BILIRUBIN,TOTAL 0.3 mg/dl (0.2-1.3); CREATININE 1.02 mg/dl (0.61-1.24)
[2016-06-03 06:47] LABS: ALBUMIN/GLOBULIN RATIO 0.74; CALCIUM 8.4 mg/dl (8.4-10.2); TOTAL PROTEIN 6.8 g/dl (6.1-8.1)
[2016-06-03 07:07] LABS: BASOPHILS % 0.1 % (0.0-2.0); HEMATOCRIT 31.2 % (42.0-52.0); HEMOGLOBIN 10.3 g/dl (14.0-18.0); LYMPHOCYTES # 0.9 10^3/ul (0.8-2.9); LYMPHOCYTES % 10.7 % (15.0-51.0); MEAN CORPUSCULAR HEMOGLOBIN 32.7 pg (29.0-33.0); MEAN CORPUSCULAR VOLUME 99.1 fl (82.0-101.0); MEAN PLATELET VOLUME 8.9 fl (7.4-10.4); MONOCYTE # 0.6 10^3/ul (0.3-0.9); MONOCYTES % 6.9 % (0.0-11.0); NEUTROPHIL # 6.8 10^3/ul (1.6-7.5); NEUTROPHILS % 82.3 % (39.0-77.0); PLATELET COUNT 291 10^3/UL (140-440); RED BLOOD COUNT 3.15 10^6/ul (4.70-6.10); RED CELL DISTRIBUTION WIDTH 16.6 % (11.5-14.5); UNCORRECTED WBC 8.3 10^3/ul (4.8-10.8); WHITE BLOOD COUNT 8.3 10^3/ul (4.8-10.8)
[2016-06-03 07:21] LABS: CONDITION 1; LH ANALYZER COMMENTS 1
[2016-06-03 07:35] LABS: MAGNESIUM 2.5 mg/dl (1.7-2.5); PHOSPHORUS 3.6 mg/dl (2.5-4.9)
[2016-06-03] MEDS: INSULIN ASPART [NOVOLOG] 3 ML PEN SC SCH ×4 (07:35→21:00)
[2016-06-03] MEDS: ASPIRIN (EC) 81 MG TAB PO SCH ×2 (08:15→14:18)
[2016-06-03] MEDS: POTASSIUM CHLORIDE (SR) 20 MEQ TAB PO SCH (08:15)
[2016-06-03] MEDS: DOCUSATE SODIUM 100 MG CAP PO SCH ×2 (08:15→21:02)
[2016-06-03] MEDS: FISH OIL 1,000 MG CAP PO SCH (08:15)
[2016-06-03] MEDS: FERROUS SULFATE (EC) 325 MG TAB PO SCH ×2 (08:15→21:09)
[2016-06-03] MEDS: METOPROLOL 50 MG TAB PO SCH ×2 (08:15→21:39)
[2016-06-03] MEDS: CLOPIDOGREL 75 MG TAB PO SCH ×2 (08:16→14:18)
[2016-06-03] MEDS: GUAIFENESIN/DM (SR) TAB PO SCH ×3 (08:16→21:07)
[2016-06-03] MEDS: GABAPENTIN 300 MG CAP PO SCH ×3 (08:16→21:40)
[2016-06-03] MEDS: predniSONE 20 MG TAB PO SCH ×2 (08:16→14:18)
[2016-06-03] MEDS: SALMETEROL/FLUTICASONE 500/50 INHA INH SCH ×2 (08:45→20:54)
[2016-06-03] MEDS: FLUTICASONE 0.05% 16 GM NAS SPRAY NASAL SCH ×2 (08:45→20:59)
--- NOTE | 2016-06-03 08:52 | RADRPT ---
PROCEDURE: XR Chest. CLINICAL INDICATION: Pneumonia, congestive heart failure. TECHNIQUE: Single frontal view of the chest was obtained. COMPARISON: 06/02/2016. FINDINGS: Cardiac silhouette remains enlarged and there is calcification in the thoracic aorta. There is pers istent pulmonary vascular congestion. There are mixed interstitial alveolar infiltrates. These kathie ear similar to the prior study. There are small bilateral pleural effusions. There is a right-side d PICC line unchanged in the interval. There are senescent changes in the axial skeleton. Multiple vertebral plasties are seen in the mid and lower dorsal spine. IMPRESSION: 1. Congestive heart failure/pulmonary edema. Superimposed pneumonia is not excluded. 2. No significant change in bilateral pleural effusions. 3. Aortic atherosclerosis RPTAT: [facility] Physician Kyle Date Time Electronically viewed and signed by Gomez Greene Physician on 06/03/2016 08:52 /
--- NOTE | 2016-06-03 09:44 | CONS ---
Date/Time of Note Date/Time of Note DATE: 06/03/16 TIME: 09:38 Consult Date/Type/Reason Admit Date/Time May 26, 2016 at 19:17 Initial Consult Date 05/28/16 Type of Consultation: pulmonary Subjective Remains congested Still in atrial fibrillation with rapid ventricular rate Awake alert and oriented Objective Vital Signs Date Time Temp Pulse Resp B/P Pulse Ox O2 Delivery O2 Flow Rate FiO2 06/03/16 08:18 125 13 100 Nasal Cannula 4.0 06/03/16 07:00 106/74 06/03/16 04:00 98.6 06/02/16 01:55 35 Intake and Output 06/02/16 06/02/16 06/03/16 15:00 23:00 07:00 Intake Total 433.6 ml 456.9 ml 133.6 ml Output Total 350 ml 230 ml 230 ml Balance 83.6 ml 226.9 ml -96.4 ml GENERAL: Elderly gentleman awake alert oriented comfortable at rest VITAL SIGNS: per chart NECK: Supple. No JVD or lymphadenopathy. CARDIAC EXAM: S1, S2. No added sounds or murmurs. CHEST: clear bilaterally, No added sounds, rales or wheezes ABDOMEN: Soft, nontender. No guarding or rebound. EXTREMITIES: No cyanosis, clubbing or edema. NEUROLOGIC: Generalized weakness. No focal deficits. Results/Medications Result Diagram: 06/03/16 0500 06/03/16 0500 Results 24 hrs Chest x-ray Pulmonary edema and infiltrates Laboratory Tests Test 06/02/16 11:44 06/02/16 18:03 06/02/16 20:42 06/03/16 05:00 Bedside Glucose 108 150 138 Alanine Aminotransferase (ALT/SGPT) 80 H Albumin 2.9 L Albumin/Globulin Ratio 0.74 Alkaline Phosphatase 59 Anion Gap 10 Aspartate Amino Transf (AST/SGOT) 66 H Basophils # 0.0 Basophils % 0.1 Blood Morphology Comment Blood Urea Nitrogen 38 H Calcium Level 8.4 Carbon Dioxide Level 35 H Chloride Level 104 Creatinine 1.02 Direct Bilirubin 0.00 Eosinophils # 0.0 Eosinophils % 0.0 Globulin 3.90 H Glucose Level 123 Hematocrit 31.2 L Hemoglobin 10.3 L Indirect Bilirubin 0.3 Lymphocytes # 0.9 Lymphocytes % 10.7 L Magnesium Level 2.5 Mean Corpuscular Hemoglobin 32.7 Mean Corpuscular Hemoglobin Concent 33.0 Mean Corpuscular Volume 99.1 Mean Platelet Volume 8.9 Monocytes # 0.6 Monocytes % 6.9 Neutrophils # 6.8 Neutrophils % 82.3 H Nucleated Red Blood Cells # 0.0 Nucleated Red Blood Cells % 0.0 Phosphorus Level 3.6 Platelet Count 291 Potassium Level 5.1 Red Blood Count 3.15 L Red Cell Distribution Width 16.6 H Sodium Level 144 Total Bilirubin 0.3 Total Protein 6.8 White Blood Count 8.3 Test 06/03/16 08:43 Bedside Glucose 110 Medications Current Medications Aspirin (Halfprin) 81 mg DAILY PO Last administered on 06/02/16 08:39; Admin Dose 81 MG; Start 05/27/16 at 09:00 Clopidogrel Bisulfate (plaVIX) 75 mg DAILY PO Last administered on 06/02/16 08:39; Admin Dose 75 MG; Start 05/27/16 at 09:00 Ferrous Sulfate (Ferrous Sulfate (Ec)) 325 mg BID PO Last administered on 06/02 20:40; Admin Dose 325 MG; Start 05/27/16 at 09:00 Fluticasone Propionate (Flonase 0.05% Nasal) 1 spray BID NASAL Last administered on 06/03/16 08:45; Admin Dose 1 SPRAY; Start 05/27/16 at 09:00 Gabapentin (Neurontin) 300 mg TID PO Last administered on 06/02/16 20:39; Admin Dose 300 MG; Start 05/27/16 at 09:00 Guaifenesin/ Dextromethorphan (Robitussin Dm Liquid Cup) 10 ml Q4H PRN PO COUGH ; Start 05/26/16 at 21:30 Montelukast Sodium (Singulair) 10 mg HS PO Last administered on 06/02/16 20: 40; Admin Dose 10 MG; Start 05/27/16 at 21:00 Oxycodone/ Acetaminophen (Endocet (10/ 325)) 1 tab Q6 PRN PO PAIN; Start 05/26 at 21:30 Salmeterol Xinafoate/ Fluticasone (Advair 500/50 Diskus) 1 inh BID INH Last administered on 06/03/16 08:45; Admin Dose 1 INH; Start 05/27/16 at 09:00 Acetaminophen (Tylenol Tab) 650 mg Q4H PRN PO pain/fever; Start 05/26/16 at 21 :30 Ondansetron HCl (Zofran Inj) 4 mg Q4H PRN IV nausea Last administered on at 21:39; Admin Dose 4 MG; Start 05/26/16 at 21:30 Guaifenesin/ Dextromethorphan (Mucinex Dm) 1 tab BID PO Last administered on at 20:39; Admin Dose 1 TAB; Start 05/27/16 at 09:00 Fish Oil (Fish Oil) 1,000 mg DAILY PO Last administered on 06/02/16at 11:36; Admin Dose 1,000 MG; Start 05/27/16 at 09:00 Atorvastatin Calcium (Lipitor) 80 mg DAILY@21 PO Last administered on at 20:40; Admin Dose 80 MG; Start 05/27/16 at 00:00 Tramadol HCl (Ultram) 50 mg Q6H PRN PO PAIN Last administered on 06/02/16at 20: 40; Admin Dose 50 MG; Start 05/27/16 at 14:00 Miscellaneous Information 1 ea NOTE XX ; Start 05/27/16 at 18:30 Glucose (Glutose) 15 gm Q15M PRN PO DECREASED GLUCOSE; Start 05/27/16 at 18:30 Glucose (Glutose) 22.5 gm Q15M PRN PO DECREASED GLUCOSE; Start 05/27/16 at 18: 30 Dextrose (D50w Syringe) 25 ml Q15M PRN IV DECREASED GLUCOSE; Start 05/27/16 at 18:30 Dextrose (D50w Syringe) 50 ml Q15M PRN IV DECREASED GLUCOSE; Start 05/27/16 at 18:30 Glucagon (Glucagen) 1 mg Q15M PRN IM DECREASED GLUCOSE; Start 05/27/16 at 18: 30 Glucose (Glutose) 15 gm Q15M PRN BUCCAL DECREASED GLUCOSE; Start 05/27/16 at 18:30 IV Flush (NS 10 ml) 10 ml PRN PRN IV IV PROTOCOL; Start 05/28/16 at 17:30 Prednisone (Prednisone) 40 mg DAILY PO Last administered on 06/02/16at 08:39; Admin Dose 40 MG; Start 05/30/16 at 09:00 Potassium Chloride (Klor-Con 20) 20 meq BID PO Last administered on 06/02/16at 20:40; Admin Dose 20 MEQ; Start 05/30/16 at 14:00 Morphine Sulfate (morphine) 1 mg Q4H PRN IV PAIN Last administered on at 00:30; Admin Dose 1 MG; Start 06/01/16 at 09:30 Miscellaneous Information Hold all Metformin ... ONCE XX Last administered on 06/02/16at 13:48; Admin Dose 1 EA; Start 06/01/16 at 13:30; Stop 06/03/16 at 13:29 Amiodarone HCl/ Dextrose (Cordarone Iv/ D5W) 500 ml @ 0 mls/hr Q0M IV Last administered on 06/02/16at 15:00; Admin Dose 16.67 MLS/HR; Start 06/01/16 at 15 :00 Docusate Sodium (Colace) 100 mg BID PO Last administered on 06/02/16at 20:39; Admin Dose 100 MG; Start 06/01/16 at 21:00 Senna (Senokot) 1 tab BID PRN PO CONSTIPATION; Start 06/01/16 at 18:30 Metoprolol Tartrate (Lopressor) 50 mg BID PO Last administered on 06/02/16at 20 :44; Admin Dose 50 MG; Start 06/02/16 at 21:00 Assessment/Plan Chief Complaint/Hosp Course IMPRESSION AND PLAN: 1. Congestive cardiac failure. History of aortic stenosis status post aortic valve replacement cardiomyopathy with decreased ejection fraction. 2. Possible chronic obstructive pulmonary disease exacerbation. 3. Non-ST elevation [place]. Status post cardiac catheterization found to have mild disease requiring medical management 4. Gentle diuresis. 5. Antibiotics for pneumonia 6. DVT and GI prophylaxis. 7. Atrial fibrillation with rapid ventricular rate Plan 1. Diuresis if tolerated 2. Cardioversion by today 3. Supplemental O2 as needed 4. DVT and GI prophylaxis Problems: SIOMARA GARZA MD, [facility] Jun 03, 2016 09:44
[2016-06-03] MEDS ORDERED: ENOXAPARIN 80 MG/0.8 ML SYG SC ONE (10:30)
--- NOTE | 2016-06-03 11:26 | CONS ---
Date/Time of Note Date/Time of Note DATE: 06/03/16 TIME: 11:19 Assessment/Plan Assessment/Plan Additional Assessment/Plan Non-ST elevation GA status post drug-eluting stenting to circumflex 06/01/2016 Respiratory Failure Acute Decompensated Systolic CHF Paroxysmal atrial fibrillation/flutter, currently with rapid ventricular rates Acute kidney injury, improving Cardiomyopathy ejection fraction 35% Acute blood loss anemia Mechanical fall with rib fractures and right lower extremity trauma Mild to moderate coronary artery disease based on catheterization in October 2014. Aortic stenosis, status post transcatheter aortic valve replacement in January 2015. Chronic obstructive pulmonary disease on home oxygen. -Patient has remained in atrial flutter since yesterday afternoon with heart rates ranging from 120s to 130s. Known proven with beta mayela or continue amiodarone. Patient with recent myocardial infarction and decreased ejection fraction, we're unable with medications to convert the patient back to sinus rhythm. Furthermore, renal function slightly increasing, impatient with overall increased fatigue. I'm concerned with continual tachycardia would further decrease ejection fraction and worsen his myocardial injury. Extensive discussion was had with the patient and the partner, will proceed with direct cardioversion. Anesthesia to be present for sedation. Patient has been given Lovenox last night and this morning. Otherwise continue aspirin, Plavix, statin therapy, beta mayela. No CLARIBEL inhibitor at the current time secondary to recent acute kidney injury. Consultation Date/Type/Reason Admit Date/Time May 26, 2016 at 19:17 Type of Consultation: cv 24 HR Interval Summary Free Text/Dictation Patient with improvement in shortness of breath, complains of fatigue, no chest pain or palpitations Exam/Review of Systems Vital Signs Vitals Vital Signs Date Time Temp Pulse Resp B/P Pulse Ox O2 Delivery O2 Flow Rate FiO2 06/03/16 09:00 126 14 113/78 99 Nasal Cannula 4.0 06/03/16 08:00 97.8 06/02/16 01:55 35 Intake and Output 06/02/16 06/02/16 06/03/16 15:00 23:00 07:00 Intake Total 433.6 ml 456.9 ml 133.6 ml Output Total 350 ml 230 ml 230 ml Balance 83.6 ml 226.9 ml -96.4 ml Exam No apparent distress Constitutional: alert, frail, oriented Head: normocephalic Neck: supple Respiratory: other (course breath sounds bilaterally with scattered rhonchi, minimal NX for a wheezing) Cardiovascular: other (S1-S2 heard), regular rate and rhythm Gastrointestinal: bowel sounds, non-tender, soft Extremities: edema Results Result Diagram: 06/03/16 0500 06/03/16 0500 Results 24 hrs Laboratory Tests Test 06/02/16 11:44 06/02/16 18:03 06/02/16 20:42 06/03/16 05:00 Bedside Glucose 108 150 138 Alanine Aminotransferase (ALT/SGPT) 80 H Albumin 2.9 L Albumin/Globulin Ratio 0.74 Alkaline Phosphatase 59 Anion Gap 10 Aspartate Amino Transf (AST/SGOT) 66 H Basophils # 0.0 Basophils % 0.1 Blood Morphology Comment Blood Urea Nitrogen 38 H Calcium Level 8.4 Carbon Dioxide Level 35 H Chloride Level 104 Creatinine 1.02 Direct Bilirubin 0.00 Eosinophils # 0.0 Eosinophils % 0.0 Globulin 3.90 H Glucose Level 123 Hematocrit 31.2 L Hemoglobin 10.3 L Indirect Bilirubin 0.3 Lymphocytes # 0.9 Lymphocytes % 10.7 L Magnesium Level 2.5 Mean Corpuscular Hemoglobin 32.7 Mean Corpuscular Hemoglobin Concent 33.0 Mean Corpuscular Volume 99.1 Mean Platelet Volume 8.9 Monocytes # 0.6 Monocytes % 6.9 Neutrophils # 6.8 Neutrophils % 82.3 H Nucleated Red Blood Cells # 0.0 Nucleated Red Blood Cells % 0.0 Phosphorus Level 3.6 Platelet Count 291 Potassium Level 5.1 Red Blood Count 3.15 L Red Cell Distribution Width 16.6 H Sodium Level 144 Total Bilirubin 0.3 Total Protein 6.8 White Blood Count 8.3 Test 06/03/16 08:43 Bedside Glucose 110 Medications Medications Current Medications Aspirin (Halfprin) 81 mg DAILY PO Last administered on 06/02/16at 08:39; Admin Dose 81 MG; Start 05/27/16 at 09:00 Clopidogrel Bisulfate (plaVIX) 75 mg DAILY PO Last administered on 06/02/16at 08:39; Admin Dose 75 MG; Start 05/27/16 at 09:00 Ferrous Sulfate (Ferrous Sulfate (Ec)) 325 mg BID PO Last administered on 06/02at 20:40; Admin Dose 325 MG; Start 05/27/16 at 09:00 Fluticasone Propionate (Flonase 0.05% Nasal) 1 spray BID NASAL Last administered on 06/03/16 08:45; Admin Dose 1 SPRAY; Start 05/27/16 at 09:00 Gabapentin (Neurontin) 300 mg TID PO Last administered on 06/02/16at 20:39; Admin Dose 300 MG; Start 05/27/16 at 09:00 Guaifenesin/ Dextromethorphan (Robitussin Dm Liquid Cup) 10 ml Q4H PRN PO COUGH ; Start 05/26/16 at 21:30 Montelukast Sodium (Singulair) 10 mg HS PO Last administered on 06/02/16at 20: 40; Admin Dose 10 MG; Start 05/27/16 at 21:00 Oxycodone/ Acetaminophen (Endocet (10/ 325)) 1 tab Q6 PRN PO PAIN; Start 05/26 at 21:30 Salmeterol Xinafoate/ Fluticasone (Advair 500/50 Diskus) 1 inh BID INH Last administered on 06/03/16at 08:45; Admin Dose 1 INH; Start 05/27/16 at 09:00 Acetaminophen (Tylenol Tab) 650 mg Q4H PRN PO pain/fever; Start 05/26/16 at 21 :30 Ondansetron HCl (Zofran Inj) 4 mg Q4H PRN IV nausea Last administered on at 21:39; Admin Dose 4 MG; Start 05/26/16 at 21:30 Guaifenesin/ Dextromethorphan (Mucinex Dm) 1 tab BID PO Last administered on at 20:39; Admin Dose 1 TAB; Start 05/27/16 at 09:00 Fish Oil (Fish Oil) 1,000 mg DAILY PO Last administered on 06/02/16at 11:36; Admin Dose 1,000 MG; Start 05/27/16 at 09:00 Atorvastatin Calcium (Lipitor) 80 mg DAILY@21 PO Last administered on 20:40; Admin Dose 80 MG; Start 05/27/16 at 00:00 Tramadol HCl (Ultram) 50 mg Q6H PRN PO PAIN Last administered on 06/02/16 20: 40; Admin Dose 50 MG; Start 05/27/16 at 14:00 Miscellaneous Information 1 ea NOTE XX ; Start 05/27/16 at 18:30 Glucose (Glutose) 15 gm Q15M PRN PO DECREASED GLUCOSE; Start 05/27/16 at 18:30 Glucose (Glutose) 22.5 gm Q15M PRN PO DECREASED GLUCOSE; Start 05/27/16 at 18: 30 Dextrose (D50w Syringe) 25 ml Q15M PRN IV DECREASED GLUCOSE; Start 05/27/16 at 18:30 Dextrose (D50w Syringe) 50 ml Q15M PRN IV DECREASED GLUCOSE; Start 05/27/16 at 18:30 Glucagon (Glucagen) 1 mg Q15M PRN IM DECREASED GLUCOSE; Start 05/27/16 at 18: 30 Glucose (Glutose) 15 gm Q15M PRN BUCCAL DECREASED GLUCOSE; Start 05/27/16 at 18:30 IV Flush (NS 10 ml) 10 ml PRN PRN IV IV PROTOCOL; Start 05/28/16 at 17:30 Prednisone (Prednisone) 40 mg DAILY PO Last administered on 06/02/16at 08:39; Admin Dose 40 MG; Start 05/30/16 at 09:00 Potassium Chloride (Klor-Con 20) 20 meq BID PO Last administered on 06/02/16at 20:40; Admin Dose 20 MEQ; Start 05/30/16 at 14:00 Morphine Sulfate (morphine) 1 mg Q4H PRN IV PAIN Last administered on at 00:30; Admin Dose 1 MG; Start 06/01/16 at 09:30 Miscellaneous Information Hold all Metformin ... ONCE XX Last administered on 06/02/16at 13:48; Admin Dose 1 EA; Start 06/01/16 at 13:30; Stop 06/03/16 at 13:29 Amiodarone HCl/ Dextrose (Cordarone Iv/ D5W) 500 ml @ 0 mls/hr Q0M IV Last administered on 06/02/16at 15:00; Admin Dose 16.67 MLS/HR; Start 06/01/16 at 15 :00 Docusate Sodium (Colace) 100 mg BID PO Last administered on 06/02/16at 20:39; Admin Dose 100 MG; Start 06/01/16 at 21:00 Senna (Senokot) 1 tab BID PRN PO CONSTIPATION; Start 06/01/16 at 18:30 Metoprolol Tartrate (Lopressor) 50 mg BID PO Last administered on 06/02/16at 20 :44; Admin Dose 50 MG; Start 06/02/16 at 21:00 Calos Peralta DO Jun 03, 2016 11:26
--- NOTE | 2016-06-03 11:42 | EN ---
Date/Time of Note Date/Time of Note DATE: 06/03/16 TIME: 11:40 Event Note Cardiology Cardiology Event Note Procedure report 06/03/2016 Direct cardioversion Preoperative diagnosis atrial flutter Postoperative diagnosis successful cardioversion of atrial flutter Description of procedure Patient with atrial flutter with rapid ventricular rates and uncontrolled with multiple medications including antiarrhythmics. Given in the setting of recent myocardial infarction, decreased ejection fraction, we proceeded with direct cardioversion. After informed consent, anesthesia present for sedation. Once patient was sedated, direct synchronized cardioversion was performed with 120 J. Patient converted to sinus rhythm with a rate in the 60s. There was no immediate complications. Blood loss none Recommendations continue antiarrhythmics Calos Peralta DO Jun 03, 2016 11:42
[2016-06-03] MEDS ORDERED: AMIODARONE 200 MG TAB PO ONE (12:44)
[2016-06-03] MEDS: ONDANSETRON 4 MG INJ IV PRN ×2 (13:28→17:32)
--- NOTE | 2016-06-03 14:34 | PN ---
Date/Time of Note Date/Time of Note DATE: 06/03/16 TIME: 14:10 Assessment/Plan VTE Prophylaxis VTE Prophylaxis Intervention: SCD's Lines/Catheters IV Catheter Type (from Nrsg): PICC Line Central line still needed: Yes (for IV access ) Urinary Cath still in place: Yes Reason Cath still needed: other (indicate) (monitor UOP ) Assessment/Plan Assessment/Plan 80 yo male with: 1. NSTEMI, patient s/p TAVR and with cardiomyopathy with troponin picked up at 13, S/p PTCA with 1 stent to circ. s/p Cardioversion this AM for A fib Remaining in SR so far and on Lovenox Echo with EF 30% On NC this AM Continue ASA and Plavix, BBlock 2. Atrial fibrillation/Atrial Flutter, s/p Cardioversion today and so far maintaining SR. On Amiodarone po now and Lopressor Lovenox rx dose and monitoring closely for bleeding 3. COPD, O2 dependent: on NC currently and BiPAP prn Continue Prednisone to 40 daily for now and will taper further slowly back to outpatient dosing. Nebs rx , Advair and Spiriva 4. JOE on CKD: Appreciate Dr Cordero's recommendations, resolved Renal function recovered and electrolytes stable Continue to monitor post angio 5. S/p accidental fall last weekend and with RLE Hematoma and RUE ecchymosis and right rib fractures Pain control with Percocet prn and Tramadol prn Hb stable and CT right LE noted. Continue to monitor 6. Acute on chronic Anemia with hematomas and blood loss: s/p 2 units pRBC last week and stable Hb since then Monitor h/h 7. Chronic back pain with acute component now with rib fractures: Percocet and tramadol prn 8. Hypertension: Currently low BP so holding Diovan 9. Congestive heart failure, systolic dysfunction EF 30 % on echo. S/p episode of volume overload and respiratory distress requiring BIPAP, diuresis prn and ICU monitoring Much less edema 10. Temporal arteritis. The patient is already on prednisone. 11. Previous history of transient ischemic attack. Patient's mental status is stable and at baseline. Monitor Prophylaxis: SCDs as tolerated, PPI for GI ppx while on steroids especially Disposition: Monitoring in ICU for respiratory status and s/p cardioversion today and so far in SR. Possibly transfer to Tele in AM Subjective 24 Hr Interval Summary Free Text/Dictation Patient doing better S/p Cardioversion and maintaining SR so far No complaints today and much less edema Exam/Review of Systems Vital Signs Vitals Vital Signs Date Time Temp Pulse Resp B/P Pulse Ox O2 Delivery O2 Flow Rate FiO2 06/03/16 14:00 73 19 121/56 100 Nasal Cannula 4.0 06/03/16 12:00 98.1 06/02/16 01:55 35 Intake and Output 06/02/16 06/02/16 06/03/16 14:59 22:59 06:59 Intake Total 433.6 ml 456.9 ml 133.6 ml Output Total 280 ml 300 ml 230 ml Balance 153.6 ml 156.9 ml -96.4 ml Exam Constitutional: alert, frail, oriented Respiratory: diminished breath sounds (bilaterally ), normal air movement, other (upper airway slight ocngestion ) Gastrointestinal: non-tender, soft Musculoskeletal: nl extremities to inspection Extremities: normal pulses, other (much improved ) 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: AUTOMATIC TRIMMING SEWER II-XII intact, nl mental status, nl speech, other (improving weakness ) Results Result Diagram: 06/03/16 0500 06/03/16 0500 Results 24 hrs Laboratory Tests Test 06/02/16 18:03 06/02/16 20:42 06/03/16 05:00 06/03/16 08:43 Bedside Glucose 150 138 110 Alanine Aminotransferase (ALT/SGPT) 80 H Albumin 2.9 L Albumin/Globulin Ratio 0.74 Alkaline Phosphatase 59 Anion Gap 10 Aspartate Amino Transf (AST/SGOT) 66 H Basophils # 0.0 Basophils % 0.1 Blood Morphology Comment Blood Urea Nitrogen 38 H Calcium Level 8.4 Carbon Dioxide Level 35 H Chloride Level 104 Creatinine 1.02 Direct Bilirubin 0.00 Eosinophils # 0.0 Eosinophils % 0.0 Globulin 3.90 H Glucose Level 123 Hematocrit 31.2 L Hemoglobin 10.3 L Indirect Bilirubin 0.3 Lymphocytes # 0.9 Lymphocytes % 10.7 L Magnesium Level 2.5 Mean Corpuscular Hemoglobin 32.7 Mean Corpuscular Hemoglobin Concent 33.0 Mean Corpuscular Volume 99.1 Mean Platelet Volume 8.9 Monocytes # 0.6 Monocytes % 6.9 Neutrophils # 6.8 Neutrophils % 82.3 H Nucleated Red Blood Cells # 0.0 Nucleated Red Blood Cells % 0.0 Phosphorus Level 3.6 Platelet Count 291 Potassium Level 5.1 Red Blood Count 3.15 L Red Cell Distribution Width 16.6 H Sodium Level 144 Total Bilirubin 0.3 Total Protein 6.8 White Blood Count 8.3 Test 06/03/16 12:20 06/03/16 13:25 Lab Scanned Report REFERENCE LAB Bedside Glucose 108 Medications Medications Current Medications Aspirin (Halfprin) 81 mg DAILY PO Last administered on 06/02/16 08:39; Admin Dose 81 MG; Start 05/27/16 at 09:00 Clopidogrel Bisulfate (plaVIX) 75 mg DAILY PO Last administered on 06/02/16 08:39; Admin Dose 75 MG; Start 05/27/16 at 09:00 Ferrous Sulfate (Ferrous Sulfate (Ec)) 325 mg BID PO Last administered on 06/02 20:40; Admin Dose 325 MG; Start 05/27/16 at 09:00 Fluticasone Propionate (Flonase 0.05% Nasal) 1 spray BID NASAL Last administered on 06/03/16 08:45; Admin Dose 1 SPRAY; Start 05/27/16 at 09:00 Gabapentin (Neurontin) 300 mg TID PO Last administered on 06/03/16 13:28; Admin Dose 300 MG; Start 05/27/16 at 09:00 Guaifenesin/ Dextromethorphan (Robitussin Dm Liquid Cup) 10 ml Q4H PRN PO COUGH ; Start 05/26/16 at 21:30 Montelukast Sodium (Singulair) 10 mg HS PO Last administered on 06/02/16at 20: 40; Admin Dose 10 MG; Start 05/27/16 at 21:00 Oxycodone/ Acetaminophen (Endocet (10/ 325)) 1 tab Q6 PRN PO PAIN; Start 05/26 at 21:30 Salmeterol Xinafoate/ Fluticasone (Advair 500/50 Diskus) 1 inh BID INH Last administered on 06/03/16 08:45; Admin Dose 1 INH; Start 05/27/16 at 09:00 Acetaminophen (Tylenol Tab) 650 mg Q4H PRN PO pain/fever; Start 05/26/16 at 21 :30 Ondansetron HCl (Zofran Inj) 4 mg Q4H PRN IV nausea Last administered on 13:28; Admin Dose 4 MG; Start 05/26/16 at 21:30 Guaifenesin/ Dextromethorphan (Mucinex Dm) 1 tab BID PO Last administered on at 20:39; Admin Dose 1 TAB; Start 05/27/16 at 09:00 Fish Oil (Fish Oil) 1,000 mg DAILY PO Last administered on 06/02/16at 11:36; Admin Dose 1,000 MG; Start 05/27/16 at 09:00 Atorvastatin Calcium (Lipitor) 80 mg DAILY@21 PO Last administered on at 20:40; Admin Dose 80 MG; Start 05/27/16 at 00:00 Tramadol HCl (Ultram) 50 mg Q6H PRN PO PAIN Last administered on 06/02/16at 20: 40; Admin Dose 50 MG; Start 05/27/16 at 14:00 Miscellaneous Information 1 ea NOTE XX ; Start 05/27/16 at 18:30 Glucose (Glutose) 15 gm Q15M PRN PO DECREASED GLUCOSE; Start 05/27/16 at 18:30 Glucose (Glutose) 22.5 gm Q15M PRN PO DECREASED GLUCOSE; Start 05/27/16 at 18: 30 Dextrose (D50w Syringe) 25 ml Q15M PRN IV DECREASED GLUCOSE; Start 05/27/16 at 18:30 Dextrose (D50w Syringe) 50 ml Q15M PRN IV DECREASED GLUCOSE; Start 05/27/16 at 18:30 Glucagon (Glucagen) 1 mg Q15M PRN IM DECREASED GLUCOSE; Start 05/27/16 at 18: 30 Glucose (Glutose) 15 gm Q15M PRN BUCCAL DECREASED GLUCOSE; Start 05/27/16 at 18:30 IV Flush (NS 10 ml) 10 ml PRN PRN IV IV PROTOCOL; Start 05/28/16 at 17:30 Prednisone (Prednisone) 40 mg DAILY PO Last administered on 06/02/16at 08:39; Admin Dose 40 MG; Start 05/30/16 at 09:00 Morphine Sulfate 1 mg 1 mg Q4H PRN IV PAIN Last administered on 06/03/16at 00: 30; Admin Dose 1 MG; Start 06/01/16 at 09:30 Amiodarone HCl/ Dextrose (Cordarone Iv/ D5W) 500 ml @ 0 mls/hr Q0M IV Last administered on 06/02/16at 15:00; Admin Dose 16.67 MLS/HR; Start 06/01/16 at 15 :00; Stop 06/03/16 at 21:00 Docusate Sodium (Colace) 100 mg BID PO Last administered on 06/02/16at 20:39; Admin Dose 100 MG; Start 06/01/16 at 21:00 Senna (Senokot) 1 tab BID PRN PO CONSTIPATION; Start 06/01/16 at 18:30 Metoprolol Tartrate (Lopressor) 50 mg BID PO Last administered on 06/02/16at 20 :44; Admin Dose 50 MG; Start 06/02/16 at 21:00 Enoxaparin Sodium (Lovenox) 80 mg BID SC ; Start 06/03/16 at 21:00 Amiodarone HCl (Cordarone) 200 mg BID PO ; Start 06/03/16 at 21:00 Procedures Procedures PROCEDURE: XR Chest. CLINICAL INDICATION: Pneumonia, congestive heart failure. TECHNIQUE: Single frontal view of the chest was obtained. COMPARISON: 06/02/2016. FINDINGS: Cardiac silhouette remains enlarged and there is calcification in the thoracic aorta. There is persistent pulmonary vascular congestion. There are mixed interstitial alveolar infiltrates. These appear similar to the prior study. There are small bilateral pleural effusions. There is a right-sided PICC line unchanged in the interval. There are senescent changes in the axial skeleton. Multiple vertebral plasties are seen in the mid and lower dorsal spine. IMPRESSION: 1. Congestive heart failure/pulmonary edema. Superimposed pneumonia is not excluded. 2. No significant change in bilateral pleural effusions. 3. Aortic atherosclerosis RICHIE SWEET Jun 03, 2016 14:27
[2016-06-03] MEDS: AMIODARONE 200 MG TAB PO SCH (21:03)
[2016-06-03] MEDS: ATORVASTATIN 80 MG TAB PO SCH (21:05)
[2016-06-03] MEDS: MONTELUKAST 10 MG TAB PO SCH (21:40)
[2016-06-03] MEDS: ENOXAPARIN 80 MG/0.8 ML SYG SC SCH (21:45)
[2016-06-04] VITALS (19 sets, daily range): BP systolic 105–146; BP diastolic 55–70; PULSE 58–138; RESP 13–22
[2016-06-04] MEDS: morphine 2 MG INJ IV PRN ×3 (00:09→19:56)
[2016-06-04] MEDS: ALBUTEROL/IPRATROPIUM (NEB) 3 ML AMP HHN SCH ×4 (01:30→19:51)
[2016-06-04 06:12] LABS: BASOPHILS % 0.1 % (0.0-2.0); HEMATOCRIT 31.8 % (42.0-52.0); HEMOGLOBIN 10.4 g/dl (14.0-18.0); LYMPHOCYTES # 0.6 10^3/ul (0.8-2.9); LYMPHOCYTES % 7.1 % (15.0-51.0); MEAN CORPUSCULAR HEMOGLOBIN 32.3 pg (29.0-33.0); MEAN CORPUSCULAR HGB CONC 32.7 g/dl (32.0-37.0); MEAN CORPUSCULAR VOLUME 98.6 fl (82.0-101.0); MEAN PLATELET VOLUME 8.4 fl (7.4-10.4); MONOCYTE # 0.1 10^3/ul (0.3-0.9); MONOCYTES % 1.5 % (0.0-11.0); NEUTROPHIL # 7.6 10^3/ul (1.6-7.5); NEUTROPHILS % 91.3 % (39.0-77.0); PLATELET COUNT 299 10^3/UL (140-440); RED BLOOD COUNT 3.22 10^6/ul (4.70-6.10); RED CELL DISTRIBUTION WIDTH 16.5 % (11.5-14.5); UNCORRECTED WBC 8.4 10^3/ul (4.8-10.8); WHITE BLOOD COUNT 8.4 10^3/ul (4.8-10.8)
[2016-06-04 06:30] LABS: CONDITION 1; LH ANALYZER COMMENTS 1
[2016-06-04 06:46] LABS: POTASSIUM 4.9 mmol/L (3.5-5.1)
[2016-06-04 06:49] LABS: CREATININE 1.08 mg/dl (0.61-1.24)
[2016-06-04 06:50] LABS: CALCIUM 8.4 mg/dl (8.4-10.2); MAGNESIUM 2.7 mg/dl (1.7-2.5); PHOSPHORUS 3.9 mg/dl (2.5-4.9)
[2016-06-04] MEDS: INSULIN ASPART [NOVOLOG] 3 ML PEN SC SCH ×4 (07:35→20:53)
--- NOTE | 2016-06-04 08:36 | RADRPT ---
PROCEDURE: XR Chest. CLINICAL INDICATION: Shortness of breath. TECHNIQUE: Single frontal view. COMPARISON: 06/03/2016. FINDINGS: The right arm PICC line remains in satisfactory position. Extensive bilateral pulmonary edema is wo rse than seen previously. The heart is enlarged. There is calcification in the aorta consistent with atherosclerosis. There are small bilateral pleural effusions. There is no pleural effusion. There is no pneumothorax. IMPRESSION: 1. Worse appearance of the lungs. RPTAT: QQ .Oscar Jackson MD, MD Date Time Electronically viewed and signed by .Oscar Jackson MD, MD on 06/04/2016 08:35 .R/
[2016-06-04] MEDS: FLUTICASONE 0.05% 16 GM NAS SPRAY NASAL SCH ×2 (08:56→22:34)
[2016-06-04] MEDS: SALMETEROL/FLUTICASONE 500/50 INHA INH SCH ×2 (08:56→22:34)
[2016-06-04] MEDS: GUAIFENESIN/DM (SR) TAB PO SCH ×2 (08:57→20:47)
[2016-06-04] MEDS: CLOPIDOGREL 75 MG TAB PO SCH (08:57)
[2016-06-04] MEDS: ASPIRIN (EC) 81 MG TAB PO SCH (08:57)
[2016-06-04] MEDS: METOPROLOL 50 MG TAB PO SCH ×2 (08:57→20:52)
[2016-06-04] MEDS: GABAPENTIN 300 MG CAP PO SCH ×3 (08:57→20:47)
[2016-06-04] MEDS: predniSONE 20 MG TAB PO SCH (08:57)
[2016-06-04] MEDS: DOCUSATE SODIUM 100 MG CAP PO SCH ×2 (08:58→20:47)
[2016-06-04] MEDS: FERROUS SULFATE (EC) 325 MG TAB PO SCH ×2 (08:58→20:47)
[2016-06-04] MEDS: AMIODARONE 200 MG TAB PO SCH ×2 (08:58→20:48)
[2016-06-04] MEDS: FISH OIL 1,000 MG CAP PO SCH (08:58)
[2016-06-04] MEDS: ENOXAPARIN 80 MG/0.8 ML SYG SC SCH ×2 (08:59→20:58)
--- NOTE | 2016-06-04 10:02 | RADRPT ---
Vent Rate: 93 bpm RR Interval: 0 msec [place] Interval: 154 msec QRS Duration: 168 msec QT Interval: 434 msec QTC Interval: 539 msec P-R-T [place]: 52 - 3 - 149 degrees Normal sinus rhythm Left bundle branch block Abnormal ECG Electronically Signed By: Vick Luis [id number]
--- NOTE | 2016-06-04 10:07 | RADRPT ---
Vent Rate: 117 bpm RR Interval: 0 msec MD Interval: 194 msec QRS Duration: 160 msec QT Interval: 332 msec QTC Interval: 463 msec P-R-T [place]: -12 - -32 - 142 degrees Atrial fibrillation with rapid ventrcular response Left axis deviation Left bundle branch block Abnormal ECG Electronically Signed By: Vick Luis [id number]
--- NOTE | 2016-06-04 12:15 | PN ---
Date/Time of Note Date/Time of Note DATE: 06/04/16 TIME: 12:02 Assessment/Plan VTE Prophylaxis VTE Prophylaxis Intervention: SCD's Lines/Catheters IV Catheter Type (from Nrsg): PICC Line Central line still needed: Yes (for IV access ) Urinary Cath still in place: Yes Reason Cath still needed: other (indicate) (monitor UOP ) Assessment/Plan Assessment/Plan 80 yo male with: 1. NSTEMI, patient s/p TAVR and with cardiomyopathy with troponin picked up at 13, S/p PTCA with 1 stent to circ. s/p Cardioversion yesterday Remaining in SR so far and on Lovenox Echo with EF 30% On 4L NC this AM Continue ASA and Plavix, BBlock 2. Atrial fibrillation/Atrial Flutter, s/p Cardioversion and so far maintaining SR. On Amiodarone po now and Lopressor Lovenox rx dose and monitoring closely for bleeding 3. COPD, O2 dependent: on NC currently and BiPAP prn Continue Prednisone to 40 daily for now and will taper further slowly back to outpatient dosing. Nebs rx , Advair and Spiriva 4. JOE on CKD: Appreciate Dr Cordero's recommendations, resolved Renal function recovered and electrolytes stable Now needs gentle diuresis 5. S/p accidental fall last week prior to admission and with RLE Hematoma and RUE ecchymosis and right rib fractures Pain control with Percocet prn and Tramadol prn Hb stable and CT right LE noted. Continue to monitor 6. Acute on chronic Anemia with hematomas and blood loss: s/p 2 units pRBC last week and stable Hb since then Monitor h/h 7. Chronic back pain with acute component now with rib fractures: Percocet and tramadol prn 8. Hypertension: Currently low BP so holding Diovan 9. Congestive heart failure, systolic dysfunction EF 30 % on echo. S/p episode of volume overload and respiratory distress requiring BIPAP, diuresis prn and ICU monitoring Much less peripheral edema but pulmonary edema noted Will discuss diuresis with Nephro 10. Temporal arteritis. The patient is already on prednisone. 11. Previous history of transient ischemic attack. Patient's mental status is stable and at baseline. Monitor Prophylaxis: SCDs as tolerated, PPI for GI ppx while on steroids especially Disposition: Monitoring respiratory status and s/p cardioversion yesterday and so far in SR.Transfer to Tele today Subjective 24 Hr Interval Summary Free Text/Dictation Patient doing well today on 4L NC Transferring to Tele today Exam/Review of Systems Vital Signs Vitals Vital Signs Date Time Temp Pulse Resp B/P Pulse Ox O2 Delivery O2 Flow Rate FiO2 06/04/16 11:00 82 20 139/62 Nasal Cannula 4.0 06/04/16 09:00 100 06/04/16 08:00 98.3 06/02/16 01:55 35 Intake and Output 06/03/16 06/03/16 06/04/16 15:00 23:00 07:00 Intake Total 853.6 ml 440.2 ml Output Total 260 ml 215 ml 210 ml Balance 593.6 ml 225.2 ml -210 ml Exam Constitutional: alert, frail, oriented Respiratory: congested cough, diminished breath sounds (bilaterally ) Cardiovascular: nl pulses (sinus rhythm ), regular rate and rhythm Gastrointestinal: non-tender, soft Musculoskeletal: other (hematomas improving ) Extremities: edema (improving ), normal pulses 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: [employer] II-XII intact, nl mental status, nl speech, other ( generalised weakness ) Results Result Diagram: 06/04/16 0520 06/04/16 0520 Results 24 hrs Laboratory Tests Test 06/03/16 12:20 06/03/16 13:25 06/03/16 17:37 06/03/16 20:51 Lab Scanned Report REFERENCE LAB Bedside Glucose 108 110 102 Test 06/04/16 05:20 Anion Gap 10 Basophils # 0.0 Basophils % 0.1 Blood Morphology Comment Blood Urea Nitrogen 47 H Calcium Level 8.4 Carbon Dioxide Level 35 H Chloride Level 103 Creatinine 1.08 Eosinophils # 0.0 Eosinophils % 0.0 Glucose Level 112 Hematocrit 31.8 L Hemoglobin 10.4 L Lymphocytes # 0.6 L Lymphocytes % 7.1 L Magnesium Level 2.7 H Mean Corpuscular Hemoglobin 32.3 Mean Corpuscular Hemoglobin Concent 32.7 Mean Corpuscular Volume 98.6 Mean Platelet Volume 8.4 Monocytes # 0.1 L Monocytes % 1.5 Neutrophils # 7.6 H Neutrophils % 91.3 H Nucleated Red Blood Cells # 0.0 Nucleated Red Blood Cells % 0.0 Phosphorus Level 3.9 Platelet Count 299 Potassium Level 4.9 Red Blood Count 3.22 L Red Cell Distribution Width 16.5 H Sodium Level 143 White Blood Count 8.4 Medications Medications Current Medications Aspirin (Halfprin) 81 mg DAILY PO Last administered on 06/04/16 08:57; Admin Dose 81 MG; Start 05/27/16 at 09:00 Clopidogrel Bisulfate (plaVIX) 75 mg DAILY PO Last administered on 06/04/16 08:57; Admin Dose 75 MG; Start 05/27/16 at 09:00 Ferrous Sulfate (Ferrous Sulfate (Ec)) 325 mg BID PO Last administered on 06/04 08:58; Admin Dose 325 MG; Start 05/27/16 at 09:00 Fluticasone Propionate (Flonase 0.05% Nasal) 1 spray BID NASAL Last administered on 06/04/16 08:56; Admin Dose 1 SPRAY; Start 05/27/16 at 09:00 Gabapentin (Neurontin) 300 mg TID PO Last administered on 06/04/16 08:57; Admin Dose 300 MG; Start 05/27/16 at 09:00 Guaifenesin/ Dextromethorphan (Robitussin Dm Liquid Cup) 10 ml Q4H PRN PO COUGH ; Start 05/26/16 at 21:30 Montelukast Sodium (Singulair) 10 mg HS PO Last administered on 06/03/16 21: 40; Admin Dose 10 MG; Start 05/27/16 at 21:00 Oxycodone/ Acetaminophen (Endocet (10/ 325)) 1 tab Q6 PRN PO PAIN; Start 05/26 at 21:30 Salmeterol Xinafoate/ Fluticasone (Advair 500/50 Diskus) 1 inh BID INH Last administered on 06/04/16 08:56; Admin Dose 1 INH; Start 05/27/16 at 09:00 Acetaminophen (Tylenol Tab) 650 mg Q4H PRN PO pain/fever; Start 05/26/16 at 21 :30 Ondansetron HCl (Zofran Inj) 4 mg Q4H PRN IV nausea Last administered on 17:32; Admin Dose 4 MG; Start 05/26/16 at 21:30 Guaifenesin/ Dextromethorphan (Mucinex Dm) 1 tab BID PO Last administered on 08:57; Admin Dose 1 TAB; Start 05/27/16 at 09:00 Fish Oil (Fish Oil) 1,000 mg DAILY PO Last administered on 06/04/16at 08:58; Admin Dose 1,000 MG; Start 05/27/16 at 09:00 Atorvastatin Calcium (Lipitor) 80 mg DAILY@21 PO Last administered on at 21:05; Admin Dose 80 MG; Start 05/27/16 at 00:00 Tramadol HCl (Ultram) 50 mg Q6H PRN PO PAIN Last administered on 06/02/16at 20: 40; Admin Dose 50 MG; Start 05/27/16 at 14:00 Miscellaneous Information 1 ea NOTE XX ; Start 05/27/16 at 18:30 Glucose (Glutose) 15 gm Q15M PRN PO DECREASED GLUCOSE; Start 05/27/16 at 18:30 Glucose (Glutose) 22.5 gm Q15M PRN PO DECREASED GLUCOSE; Start 05/27/16 at 18: 30 Dextrose (D50w Syringe) 25 ml Q15M PRN IV DECREASED GLUCOSE; Start 05/27/16 at 18:30 Dextrose (D50w Syringe) 50 ml Q15M PRN IV DECREASED GLUCOSE; Start 05/27/16 at 18:30 Glucagon (Glucagen) 1 mg Q15M PRN IM DECREASED GLUCOSE; Start 05/27/16 at 18: 30 Glucose (Glutose) 15 gm Q15M PRN BUCCAL DECREASED GLUCOSE; Start 05/27/16 at 18:30 IV Flush (NS 10 ml) 10 ml PRN PRN IV IV PROTOCOL; Start 05/28/16 at 17:30 Prednisone (Prednisone) 40 mg DAILY PO Last administered on 06/04/16at 08:57; Admin Dose 40 MG; Start 05/30/16 at 09:00 Morphine Sulfate (morphine) 1 mg Q4H PRN IV PAIN Last administered on at 10:01; Admin Dose 1 MG; Start 06/01/16 at 09:30 Docusate Sodium (Colace) 100 mg BID PO Last administered on 06/04/16at 08:58; Admin Dose 100 MG; Start 06/01/16 at 21:00 Senna (Senokot) 1 tab BID PRN PO CONSTIPATION; Start 06/01/16 at 18:30 Metoprolol Tartrate (Lopressor) 50 mg BID PO Last administered on 06/04/16at 08 :57; Admin Dose 50 MG; Start 06/02/16 at 21:00 Enoxaparin Sodium (Lovenox) 80 mg BID SC Last administered on 06/04/16at 08:59 ; Admin Dose 80 MG; Start 06/03/16 at 21:00 Amiodarone HCl (Cordarone) 200 mg BID PO Last administered on 06/04/16at 08:58 ; Admin Dose 200 MG; Start 06/03/16 at 21:00 Procedures Procedures PROCEDURE: XR Chest. CLINICAL INDICATION: Shortness of breath. TECHNIQUE: Single frontal view. COMPARISON: 06/03/2016. FINDINGS: The right arm PICC line remains in satisfactory position. Extensive bilateral pulmonary edema is worse than seen previously. The heart is enlarged. There is calcification in the aorta consistent with atherosclerosis. There are small bilateral pleural effusions. There is no pleural effusion. There is no pneumothorax. IMPRESSION: 1. Worse appearance of the lungs. RICHIE SWEET Jun 04, 2016 12:14 RICHIE SWEET Jun 04, 2016 12:14
--- NOTE | 2016-06-04 13:12 | CONS ---
Date/Time of Note Date/Time of Note DATE: 06/04/16 TIME: 13:09 Assessment/Plan Assessment/Plan Chief Complaint/Hosp Course - Acute Kidney Injury post Contrast - CKD ( ? HTN Nephrosclerosis ) - Acute DE - Hyperkalemia - ? Rhabdomyolysis - COPD - Hx of Temporal Arteritis - CAD/CHF PLAN: Improving Creatinine & ATN Tolerated Cardiac Angiogram well Renal back to baseline Becoming slight SOB Needs to be OOB PT/OT evaluation Start Bumex IV 2 mg q day Will give it with Albumin 5% for now Problems: Consultation Date/Type/Reason Admit Date/Time May 26, 2016 at 19:17 Initial Consult Date 05/28/16 Type of Consultation: Nephrology Reason for Consultation JOE 24 HR Interval Summary Constitutional: diaphoresis, improved, no complaints Exam/Review of Systems Vital Signs Vitals Vital Signs Date Time Temp Pulse Resp B/P Pulse Ox O2 Delivery O2 Flow Rate FiO2 06/04/16 12:00 81 06/04/16 11:00 20 139/62 Nasal Cannula 4.0 06/04/16 09:00 100 06/04/16 08:00 98.3 06/02/16 01:55 35 Intake and Output 06/03/16 06/03/16 06/04/16 15:00 23:00 07:00 Intake Total 853.6 ml 440.2 ml Output Total 260 ml 215 ml 210 ml Balance 593.6 ml 225.2 ml -210 ml Exam Constitutional: alert, oriented Head: normocephalic ENMT: nl external ears & nose Respiratory: crackles/rales Cardiovascular: regular rate and rhythm, systolic murmur Gastrointestinal: soft Results Result Diagram: 06/04/16 0520 06/04/16 0520 Results 24 hrs Laboratory Tests Test 06/03/16 13:25 06/03/16 17:37 06/03/16 20:51 06/04/16 05:20 Bedside Glucose 108 110 102 Anion Gap 10 Basophils # 0.0 Basophils % 0.1 Blood Morphology Comment Blood Urea Nitrogen 47 H Calcium Level 8.4 Carbon Dioxide Level 35 H Chloride Level 103 Creatinine 1.08 Eosinophils # 0.0 Eosinophils % 0.0 Glucose Level 112 Hematocrit 31.8 L Hemoglobin 10.4 L Lymphocytes # 0.6 L Lymphocytes % 7.1 L Magnesium Level 2.7 H Mean Corpuscular Hemoglobin 32.3 Mean Corpuscular Hemoglobin Concent 32.7 Mean Corpuscular Volume 98.6 Mean Platelet Volume 8.4 Monocytes # 0.1 L Monocytes % 1.5 Neutrophils # 7.6 H Neutrophils % 91.3 H Nucleated Red Blood Cells # 0.0 Nucleated Red Blood Cells % 0.0 Phosphorus Level 3.9 Platelet Count 299 Potassium Level 4.9 Red Blood Count 3.22 L Red Cell Distribution Width 16.5 H Sodium Level 143 White Blood Count 8.4 Medications Medications Current Medications Aspirin (Halfprin) 81 mg DAILY PO Last administered on 06/04/16 08:57; Admin Dose 81 MG; Start 05/27/16 at 09:00 Clopidogrel Bisulfate (plaVIX) 75 mg DAILY PO Last administered on 06/04/16 08:57; Admin Dose 75 MG; Start 05/27/16 at 09:00 Ferrous Sulfate (Ferrous Sulfate (Ec)) 325 mg BID PO Last administered on 06/04 08:58; Admin Dose 325 MG; Start 05/27/16 at 09:00 Fluticasone Propionate (Flonase 0.05% Nasal) 1 spray BID NASAL Last administered on 06/04/16 08:56; Admin Dose 1 SPRAY; Start 05/27/16 at 09:00 Gabapentin (Neurontin) 300 mg TID PO Last administered on 06/04/16 08:57; Admin Dose 300 MG; Start 05/27/16 at 09:00 Guaifenesin/ Dextromethorphan (Robitussin Dm Liquid Cup) 10 ml Q4H PRN PO COUGH ; Start 05/26/16 at 21:30 Montelukast Sodium (Singulair) 10 mg HS PO Last administered on 06/03/16at 21: 40; Admin Dose 10 MG; Start 05/27/16 at 21:00 Oxycodone/ Acetaminophen (Endocet (10/ 325)) 1 tab Q6 PRN PO PAIN; Start 05/26 at 21:30 Salmeterol Xinafoate/ Fluticasone (Advair 500/50 Diskus) 1 inh BID INH Last administered on 06/04/16 08:56; Admin Dose 1 INH; Start 05/27/16 at 09:00 Acetaminophen (Tylenol Tab) 650 mg Q4H PRN PO pain/fever; Start 05/26/16 at 21 :30 Ondansetron HCl (Zofran Inj) 4 mg Q4H PRN IV nausea Last administered on at 17:32; Admin Dose 4 MG; Start 05/26/16 at 21:30 Guaifenesin/ Dextromethorphan (Mucinex Dm) 1 tab BID PO Last administered on at 08:57; Admin Dose 1 TAB; Start 05/27/16 at 09:00 Fish Oil (Fish Oil) 1,000 mg DAILY PO Last administered on 06/04/16at 08:58; Admin Dose 1,000 MG; Start 05/27/16 at 09:00 Atorvastatin Calcium (Lipitor) 80 mg DAILY@21 PO Last administered on at 21:05; Admin Dose 80 MG; Start 05/27/16 at 00:00 Tramadol HCl (Ultram) 50 mg Q6H PRN PO PAIN Last administered on 06/02/16at 20: 40; Admin Dose 50 MG; Start 05/27/16 at 14:00 Miscellaneous Information 1 ea NOTE XX ; Start 05/27/16 at 18:30 Glucose (Glutose) 15 gm Q15M PRN PO DECREASED GLUCOSE; Start 05/27/16 at 18:30 Glucose (Glutose) 22.5 gm Q15M PRN PO DECREASED GLUCOSE; Start 05/27/16 at 18: 30 Dextrose (D50w Syringe) 25 ml Q15M PRN IV DECREASED GLUCOSE; Start 05/27/16 at 18:30 Dextrose (D50w Syringe) 50 ml Q15M PRN IV DECREASED GLUCOSE; Start 05/27/16 at 18:30 Glucagon (Glucagen) 1 mg Q15M PRN IM DECREASED GLUCOSE; Start 05/27/16 at 18: 30 Glucose (Glutose) 15 gm Q15M PRN BUCCAL DECREASED GLUCOSE; Start 05/27/16 at 18:30 IV Flush (NS 10 ml) 10 ml PRN PRN IV IV PROTOCOL; Start 05/28/16 at 17:30 Prednisone (Prednisone) 40 mg DAILY PO Last administered on 06/04/16at 08:57; Admin Dose 40 MG; Start 05/30/16 at 09:00 Morphine Sulfate (morphine) 1 mg Q4H PRN IV PAIN Last administered on at 10:01; Admin Dose 1 MG; Start 06/01/16 at 09:30 Docusate Sodium (Colace) 100 mg BID PO Last administered on 06/04/16at 08:58; Admin Dose 100 MG; Start 06/01/16 at 21:00 Senna (Senokot) 1 tab BID PRN PO CONSTIPATION; Start 06/01/16 at 18:30 Metoprolol Tartrate (Lopressor) 50 mg BID PO Last administered on 06/04/16at 08 :57; Admin Dose 50 MG; Start 06/02/16 at 21:00 Enoxaparin Sodium (Lovenox) 80 mg BID SC Last administered on 06/04/16at 08:59 ; Admin Dose 80 MG; Start 06/03/16 at 21:00 Amiodarone HCl (Cordarone) 200 mg BID PO Last administered on 06/04/16at 08:58 ; Admin Dose 200 MG; Start 06/03/16 at 21:00 PATT FARRELL MD Jun 04, 2016 13:11
--- NOTE | 2016-06-04 13:43 | CONS ---
Date/Time of Note Date/Time of Note DATE: 06/04/16 TIME: 13:41 Assessment/Plan Assessment/Plan Additional Assessment/Plan Non-ST elevation SD status post drug-eluting stenting to circumflex 06/01/2016 Respiratory Failure Acute Decompensated Systolic CHF Paroxysmal atrial fibrillation/flutter, currently with rapid ventricular rates status post direct cardioversion Acute kidney injury, improving Cardiomyopathy ejection fraction 35% Acute blood loss anemia Mechanical fall with rib fractures and right lower extremity trauma Aortic stenosis, status post transcatheter aortic valve replacement in January 2015. Chronic obstructive pulmonary disease on home oxygen. -Patient has remained in sinus rhythm after cardioversion, would continue amiodarone and beta mayela. Patient plan for diuresis in discussion with our nephrology colleagues. If renal function remained stable, would start CLARIBEL inhibitor in the next one to 2 days. Physical therapy Consultation Date/Type/Reason Admit Date/Time May 26, 2016 at 19:17 Type of Consultation: cv 24 HR Interval Summary Free Text/Dictation Shortness of breath mildly worse compared to yesterday, denies chest pain, palpitations or dizziness Exam/Review of Systems Vital Signs Vitals Vital Signs Date Time Temp Pulse Resp B/P Pulse Ox O2 Delivery O2 Flow Rate FiO2 06/04/16 12:00 81 06/04/16 11:00 20 139/62 Nasal Cannula 4.0 06/04/16 09:00 100 06/04/16 08:00 98.3 06/02/16 01:55 35 Intake and Output 06/03/16 06/03/16 06/04/16 15:00 23:00 07:00 Intake Total 853.6 ml 440.2 ml Output Total 260 ml 215 ml 210 ml Balance 593.6 ml 225.2 ml -210 ml Exam No apparent distress Constitutional: alert, frail, oriented Head: normocephalic Neck: supple Respiratory: crackles/rales, other, wheezing Cardiovascular: other (S1-S2 heard), regular rate and rhythm Gastrointestinal: bowel sounds, non-tender, soft Extremities: edema Results Result Diagram: 06/04/16 0520 06/04/16 0520 Results 24 hrs Laboratory Tests Test 06/03/16 17:37 06/03/16 20:51 06/04/16 05:20 06/04/16 13:30 Bedside Glucose 110 102 104 Anion Gap 10 Basophils # 0.0 Basophils % 0.1 Blood Morphology Comment Blood Urea Nitrogen 47 H Calcium Level 8.4 Carbon Dioxide Level 35 H Chloride Level 103 Creatinine 1.08 Eosinophils # 0.0 Eosinophils % 0.0 Glucose Level 112 Hematocrit 31.8 L Hemoglobin 10.4 L Lymphocytes # 0.6 L Lymphocytes % 7.1 L Magnesium Level 2.7 H Mean Corpuscular Hemoglobin 32.3 Mean Corpuscular Hemoglobin Concent 32.7 Mean Corpuscular Volume 98.6 Mean Platelet Volume 8.4 Monocytes # 0.1 L Monocytes % 1.5 Neutrophils # 7.6 H Neutrophils % 91.3 H Nucleated Red Blood Cells # 0.0 Nucleated Red Blood Cells % 0.0 Phosphorus Level 3.9 Platelet Count 299 Potassium Level 4.9 Red Blood Count 3.22 L Red Cell Distribution Width 16.5 H Sodium Level 143 White Blood Count 8.4 Medications Medications Current Medications Aspirin (Halfprin) 81 mg DAILY PO Last administered on 06/04/16 08:57; Admin Dose 81 MG; Start 05/27/16 at 09:00 Clopidogrel Bisulfate (plaVIX) 75 mg DAILY PO Last administered on 06/04/16at 08:57; Admin Dose 75 MG; Start 05/27/16 at 09:00 Ferrous Sulfate (Ferrous Sulfate (Ec)) 325 mg BID PO Last administered on 06/04at 08:58; Admin Dose 325 MG; Start 05/27/16 at 09:00 Fluticasone Propionate (Flonase 0.05% Nasal) 1 spray BID NASAL Last administered on 06/04/16at 08:56; Admin Dose 1 SPRAY; Start 05/27/16 at 09:00 Gabapentin (Neurontin) 300 mg TID PO Last administered on 06/04/16at 13:30; Admin Dose 300 MG; Start 05/27/16 at 09:00 Guaifenesin/ Dextromethorphan (Robitussin Dm Liquid Cup) 10 ml Q4H PRN PO COUGH ; Start 05/26/16 at 21:30 Montelukast Sodium (Singulair) 10 mg HS PO Last administered on 06/03/16at 21: 40; Admin Dose 10 MG; Start 05/27/16 at 21:00 Oxycodone/ Acetaminophen (Endocet (10/ 325)) 1 tab Q6 PRN PO PAIN; Start 05/26 at 21:30 Salmeterol Xinafoate/ Fluticasone (Advair 500/50 Diskus) 1 inh BID INH Last administered on 06/04/16at 08:56; Admin Dose 1 INH; Start 05/27/16 at 09:00 Acetaminophen (Tylenol Tab) 650 mg Q4H PRN PO pain/fever; Start 05/26/16 at 21 :30 Ondansetron HCl (Zofran Inj) 4 mg Q4H PRN IV nausea Last administered on at 17:32; Admin Dose 4 MG; Start 05/26/16 at 21:30 Guaifenesin/ Dextromethorphan (Mucinex Dm) 1 tab BID PO Last administered on at 08:57; Admin Dose 1 TAB; Start 05/27/16 at 09:00 Fish Oil (Fish Oil) 1,000 mg DAILY PO Last administered on 06/04/16at 08:58; Admin Dose 1,000 MG; Start 05/27/16 at 09:00 Atorvastatin Calcium (Lipitor) 80 mg DAILY@21 PO Last administered on at 21:05; Admin Dose 80 MG; Start 05/27/16 at 00:00 Tramadol HCl (Ultram) 50 mg Q6H PRN PO PAIN Last administered on 06/02/16at 20: 40; Admin Dose 50 MG; Start 05/27/16 at 14:00 Miscellaneous Information 1 ea NOTE XX ; Start 05/27/16 at 18:30 Glucose (Glutose) 15 gm Q15M PRN PO DECREASED GLUCOSE; Start 05/27/16 at 18:30 Glucose (Glutose) 22.5 gm Q15M PRN PO DECREASED GLUCOSE; Start 05/27/16 at 18: 30 Dextrose (D50w Syringe) 25 ml Q15M PRN IV DECREASED GLUCOSE; Start 05/27/16 at 18:30 Dextrose (D50w Syringe) 50 ml Q15M PRN IV DECREASED GLUCOSE; Start 05/27/16 at 18:30 Glucagon (Glucagen) 1 mg Q15M PRN IM DECREASED GLUCOSE; Start 05/27/16 at 18: 30 Glucose (Glutose) 15 gm Q15M PRN BUCCAL DECREASED GLUCOSE; Start 05/27/16 at 18:30 IV Flush (NS 10 ml) 10 ml PRN PRN IV IV PROTOCOL; Start 05/28/16 at 17:30 Prednisone (Prednisone) 40 mg DAILY PO Last administered on 06/04/16 08:57; Admin Dose 40 MG; Start 05/30/16 at 09:00 Morphine Sulfate (morphine) 1 mg Q4H PRN IV PAIN Last administered on at 10:01; Admin Dose 1 MG; Start 06/01/16 at 09:30 Docusate Sodium (Colace) 100 mg BID PO Last administered on 06/04/16 08:58; Admin Dose 100 MG; Start 06/01/16 at 21:00 Senna (Senokot) 1 tab BID PRN PO CONSTIPATION; Start 06/01/16 at 18:30 Metoprolol Tartrate (Lopressor) 50 mg BID PO Last administered on 06/04/16at 08 :57; Admin Dose 50 MG; Start 06/02/16 at 21:00 Enoxaparin Sodium (Lovenox) 80 mg BID SC Last administered on 06/04/16 08:59 ; Admin Dose 80 MG; Start 06/03/16 at 21:00 Amiodarone HCl 200 mg 200 mg BID PO Last administered on 06/04/16 08:58; Admin Dose 200 MG; Start 06/03/16 at 21:00 Albumin Human (Albumin Human 25%) 50 ml @ 100 mls/hr AM IV ; Start 06/04/16 at 13:30; Stop 06/06/16 at 13:29 Bumetanide (Bumex) 2 mg DAILY IV ; Start 06/04/16 at 13:30; Stop 06/07/16 at 13:29 Calos Peralta DO Jun 04, 2016 13:43
[2016-06-04] MEDS: BUMETANIDE 1 MG INJ IV SCH (14:14)
[2016-06-04] MEDS: ALBUMIN HUMAN 25% 50 ML IV SCH (14:17)
[2016-06-04] MEDS ORDERED: DILTIAZEM 25 MG INJ IV ONE (18:30)
[2016-06-04] MEDS: DILTIAZEM-D5W 125MG/125ML DRIP 125 ML IV SCH (18:34)
[2016-06-04] MEDS: ATORVASTATIN 80 MG TAB PO SCH (20:47)
[2016-06-04] MEDS: MONTELUKAST 10 MG TAB PO SCH (20:47)
[2016-06-04] MEDS: ALBUTEROL 0.083% (NEB) 2.5 MG/3 ML AMP HHN PRN (23:56)
[2016-06-05] VITALS (14 sets, daily range): BP systolic 96–112; BP diastolic 51–60; PULSE 94–123; RESP 18–22
[2016-06-05] MEDS: ALBUTEROL/IPRATROPIUM (NEB) 3 ML AMP HHN SCH ×4 (01:32→19:50)
[2016-06-05] MEDS ORDERED: FUROSEMIDE 40 MG INJ IV ONE (02:30)
[2016-06-05] MEDS: DILTIAZEM-D5W 125MG/125ML DRIP 125 ML IV SCH ×3 (02:51→19:43)
--- NOTE | 2016-06-05 03:41 | RADRPT ---
PROCEDURE: XR Chest. CLINICAL INDICATION: Difficulty breathing. TECHNIQUE: Single frontal chest x-ray. COMPARISON: 06/04/2016 FINDINGS: There is enlargement of the cardiac silhouette. Pulmonary vascular congestion is again apparent min imally increased on the left and decreased on the right compared to previous study. Bilateral lung densities which could represent edema are improved compared to previous study. Small pleural effusi ons are again apparent. Calcification in thoracic aorta. Right PICC line tip in superior vena cava . ECG leads projected over the chest. Kyphoplasties again seen. IMPRESSION: Suggestive of congestive heart failure overall improved compared to previous study. Small pleural e ffusions again seen. Please see above. RPTAT: HJES .Tremaine Hollins MD, MD Date Time Electronically viewed and signed by .Tremaine Hollins MD, on 06/05/2016 03:41 .S/
[2016-06-05 06:26] LABS: POTASSIUM 3.9 mmol/L (3.5-5.1)
[2016-06-05 06:29] LABS: CREATININE 1.02 mg/dl (0.61-1.24)
[2016-06-05 06:30] LABS: CALCIUM 8.6 mg/dl (8.4-10.2)
[2016-06-05 06:45] LABS: BASOPHILS % 0.3 % (0.0-2.0); EOSINOPHILS # 0.1 10^3/ul (0.0-0.5); EOSINOPHILS % 1.8 % (0.0-7.0); HEMATOCRIT 32.7 % (42.0-52.0); HEMOGLOBIN 10.8 g/dl (14.0-18.0); LYMPHOCYTES # 1.1 10^3/ul (0.8-2.9); LYMPHOCYTES % 16.2 % (15.0-51.0); MEAN CORPUSCULAR HEMOGLOBIN 32.5 pg (29.0-33.0); MEAN CORPUSCULAR HGB CONC 33.1 g/dl (32.0-37.0); MEAN CORPUSCULAR VOLUME 98.3 fl (82.0-101.0); MEAN PLATELET VOLUME 8.5 fl (7.4-10.4); MONOCYTE # 0.7 10^3/ul (0.3-0.9); MONOCYTES % 10.1 % (0.0-11.0); NEUTROPHILS % 71.6 % (39.0-77.0); PLATELET COUNT 295 10^3/UL (140-440); RED BLOOD COUNT 3.33 10^6/ul (4.70-6.10); RED CELL DISTRIBUTION WIDTH 16.3 % (11.5-14.5)
[2016-06-05 07:03] LABS: CONDITION 1; LH ANALYZER COMMENTS 1
[2016-06-05 07:27] LABS: PHOSPHORUS 2.7 mg/dl (2.5-4.9)
[2016-06-05] MEDS: INSULIN ASPART [NOVOLOG] 3 ML PEN SC SCH ×4 (07:55→21:20)
[2016-06-05] MEDS: METOPROLOL 50 MG TAB PO SCH ×3 (07:55→22:50)
[2016-06-05] MEDS: AMIODARONE 200 MG TAB PO SCH ×3 (07:56→21:06)
[2016-06-05] MEDS: GABAPENTIN 300 MG CAP PO SCH ×3 (09:06→21:06)
[2016-06-05] MEDS: predniSONE 20 MG TAB PO SCH (09:06)
[2016-06-05] MEDS: CLOPIDOGREL 75 MG TAB PO SCH (09:06)
[2016-06-05] MEDS: ASPIRIN (EC) 81 MG TAB PO SCH (09:06)
[2016-06-05] MEDS: GUAIFENESIN/DM (SR) TAB PO SCH ×2 (09:06→21:07)
[2016-06-05] MEDS: SALMETEROL/FLUTICASONE 500/50 INHA INH SCH ×2 (09:07→21:04)
[2016-06-05] MEDS: FLUTICASONE 0.05% 16 GM NAS SPRAY NASAL SCH ×2 (09:07→21:05)
[2016-06-05] MEDS: ENOXAPARIN 80 MG/0.8 ML SYG SC SCH (09:12)
[2016-06-05] MEDS ORDERED: DIGOXIN 500 MCG INJ IV ONE (11:00)
--- NOTE | 2016-06-05 11:03 | CONS ---
Date/Time of Note Date/Time of Note DATE: 06/05/16 TIME: 11:00 Assessment/Plan Assessment/Plan Additional Assessment/Plan Non-ST elevation IL status post drug-eluting stenting to circumflex 06/01/2016 Respiratory Failure Acute Decompensated Systolic CHF Paroxysmal atrial fibrillation/flutter Acute kidney injury, improving Cardiomyopathy ejection fraction 35% Acute blood loss anemia Mechanical fall with rib fractures and right lower extremity trauma Aortic stenosis, status post transcatheter aortic valve replacement in January 2015. Chronic obstructive pulmonary disease on home oxygen. -Patient with recurrence of atrial fibrillation and flutter since yesterday afternoon. Patient did undergo cardioversion 2 days ago that was successful. Would increase dose of amiodarone, increase Lopressor, start digoxin. Titrate down IV Cardizem. Patient with improvement in chest x-ray and respiratory status on diuretics. Would watch renal function closely, as well as watching for hypovolemia since I can also exacerbate tachycardia. If renal function remained stable, would start CLARIBEL inhibitor in the next one to 2 days. Hemoglobin has remained stable on full dose Lovenox. Would transition to eliquis as long as hemoglobin tolerates. Would plan for dual antiplatelet therapy for minimum of 1 month and then since patient on anticoagulation, would then stop aspirin at one month and continue anticoagulation and Plavix. Consultation Date/Type/Reason Admit Date/Time May 26, 2016 at 19:17 Type of Consultation: cv 24 HR Interval Summary Free Text/Dictation Patient with improvement in shortness of breath, recurrence of atrial fibrillation/flutter. Denies chest pain, palpitations Exam/Review of Systems Vital Signs Vitals Vital Signs Date Time Temp Pulse Resp B/P Pulse Ox O2 Delivery O2 Flow Rate FiO2 06/05/16 09:32 97 6.0 06/05/16 09:32 88 22 Nasal Cannula 06/05/16 07:51 104/57 06/05/16 07:11 97.9 06/02/16 01:55 35 Intake and Output 06/04/16 06/04/16 06/05/16 14:59 22:59 06:59 Intake Total 320 ml 240 ml 166.7 ml Output Total 685 ml 150 ml 2950 ml Balance -365 ml 90 ml -2783.3 ml Exam No apparent distress Constitutional: alert, frail, oriented Head: normocephalic Neck: supple Respiratory: other (course breath sounds bilaterally, scattered rhonchi, no wheezing) Cardiovascular: irregular rhythm, other (S1 and S2 heard) Gastrointestinal: bowel sounds, non-tender, soft Extremities: edema Results Result Diagram: 06/05/16 0600 06/05/16 0600 Results 24 hrs Laboratory Tests Test 06/04/16 13:30 06/04/16 17:04 06/04/16 20:51 06/05/16 00:20 Bedside Glucose 104 116 103 Troponin I 0.852 *H Test 06/05/16 06:00 06/05/16 07:57 Anion Gap 13 Basophils # 0.0 Basophils % 0.3 Blood Morphology Comment Blood Urea Nitrogen 39 H Calcium Level 8.6 Carbon Dioxide Level 41 *H Chloride Level 95 L Creatinine 1.02 Eosinophils # 0.1 Eosinophils % 1.8 Glucose Level 92 Hematocrit 32.7 L Hemoglobin 10.8 L Lymphocytes # 1.1 Lymphocytes % 16.2 Magnesium Level 2.0 Mean Corpuscular Hemoglobin 32.5 Mean Corpuscular Hemoglobin Concent 33.1 Mean Corpuscular Volume 98.3 Mean Platelet Volume 8.5 Monocytes # 0.7 Monocytes % 10.1 Neutrophils # 5.0 Neutrophils % 71.6 Nucleated Red Blood Cells # 0.0 Nucleated Red Blood Cells % 0.0 Phosphorus Level 2.7 Platelet Count 295 Potassium Level 3.9 Red Blood Count 3.33 L Red Cell Distribution Width 16.3 H Sodium Level 145 H White Blood Count 7.0 Bedside Glucose 98 Medications Medications Current Medications Aspirin (Halfprin) 81 mg DAILY PO Last administered on 06/05/16 09:06; Admin Dose 81 MG; Start 05/27/16 at 09:00 Clopidogrel Bisulfate (plaVIX) 75 mg DAILY PO Last administered on 06/05/16at 09:06; Admin Dose 75 MG; Start 05/27/16 at 09:00 Ferrous Sulfate (Ferrous Sulfate (Ec)) 325 mg BID PO Last administered on 06/04 20:47; Admin Dose 325 MG; Start 05/27/16 at 09:00 Fluticasone Propionate (Flonase 0.05% Nasal) 1 spray BID NASAL Last administered on 06/05/16 09:07; Admin Dose 1 SPRAY; Start 05/27/16 at 09:00 Gabapentin (Neurontin) 300 mg TID PO Last administered on 06/05/16 09:06; Admin Dose 300 MG; Start 05/27/16 at 09:00 Guaifenesin/ Dextromethorphan (Robitussin Dm Liquid Cup) 10 ml Q4H PRN PO COUGH ; Start 05/26/16 at 21:30 Montelukast Sodium (Singulair) 10 mg HS PO Last administered on 06/04/16at 20: 47; Admin Dose 10 MG; Start 05/27/16 at 21:00 Oxycodone/ Acetaminophen (Endocet (10/ 325)) 1 tab Q6 PRN PO PAIN; Start 05/26 at 21:30 Salmeterol Xinafoate/ Fluticasone (Advair 500/50 Diskus) 1 inh BID INH Last administered on 06/05/16at 09:07; Admin Dose 1 INH; Start 05/27/16 at 09:00 Acetaminophen (Tylenol Tab) 650 mg Q4H PRN PO pain/fever; Start 05/26/16 at 21 :30 Ondansetron HCl (Zofran Inj) 4 mg Q4H PRN IV nausea Last administered on at 17:32; Admin Dose 4 MG; Start 05/26/16 at 21:30 Guaifenesin/ Dextromethorphan (Mucinex Dm) 1 tab BID PO Last administered on at 09:06; Admin Dose 1 TAB; Start 05/27/16 at 09:00 Fish Oil (Fish Oil) 1,000 mg DAILY PO Last administered on 06/04/16at 08:58; Admin Dose 1,000 MG; Start 05/27/16 at 09:00 Atorvastatin Calcium (Lipitor) 80 mg DAILY@21 PO Last administered on at 20:47; Admin Dose 80 MG; Start 05/27/16 at 00:00 Tramadol HCl (Ultram) 50 mg Q6H PRN PO PAIN Last administered on 06/02/16at 20: 40; Admin Dose 50 MG; Start 05/27/16 at 14:00 Miscellaneous Information 1 ea NOTE XX ; Start 05/27/16 at 18:30 Glucose (Glutose) 15 gm Q15M PRN PO DECREASED GLUCOSE; Start 05/27/16 at 18:30 Glucose (Glutose) 22.5 gm Q15M PRN PO DECREASED GLUCOSE; Start 05/27/16 at 18: 30 Dextrose (D50w Syringe) 25 ml Q15M PRN IV DECREASED GLUCOSE; Start 05/27/16 at 18:30 Dextrose (D50w Syringe) 50 ml Q15M PRN IV DECREASED GLUCOSE; Start 05/27/16 at 18:30 Glucagon (Glucagen) 1 mg Q15M PRN IM DECREASED GLUCOSE; Start 05/27/16 at 18: 30 Glucose (Glutose) 15 gm Q15M PRN BUCCAL DECREASED GLUCOSE; Start 05/27/16 at 18:30 IV Flush (NS 10 ml) 10 ml PRN PRN IV IV PROTOCOL; Start 05/28/16 at 17:30 Prednisone (Prednisone) 40 mg DAILY PO Last administered on 06/05/16at 09:06; Admin Dose 40 MG; Start 05/30/16 at 09:00 Morphine Sulfate (morphine) 1 mg Q4H PRN IV PAIN Last administered on at 19:56; Admin Dose 1 MG; Start 06/01/16 at 09:30 Docusate Sodium (Colace) 100 mg BID PO Last administered on 06/04/16at 20:47; Admin Dose 100 MG; Start 06/01/16 at 21:00 Senna (Senokot) 1 tab BID PRN PO CONSTIPATION; Start 06/01/16 at 18:30 Metoprolol Tartrate (Lopressor) 50 mg BID PO Last administered on 06/05/16at 07 :55; Admin Dose 50 MG; Start 06/02/16 at 21:00 Enoxaparin Sodium (Lovenox) 80 mg BID SC Last administered on 06/05/16at 09:12 ; Admin Dose 80 MG; Start 06/03/16 at 21:00 Amiodarone HCl 200 mg 200 mg BID PO Last administered on 06/05/16at 07:56; Admin Dose 200 MG; Start 06/03/16 at 21:00 Albumin Human (Albumin Human 25%) 50 ml @ 100 mls/hr AM IV Last administered on 06/04/16at 14:17; Admin Dose 100 MLS/HR; Start 06/04/16 at 13:30; Stop at 13:29 Bumetanide 2 mg 2 mg DAILY IV Last administered on 06/04/16at 14:14; Admin Dose 2 MG; Start 06/04/16 at 13:30; Stop 06/07/16 at 13:29 Diltiazem HCl (Cardizem-D5W 125 Mg/125 ml Drip) 125 ml @ 5 mls/hr TITRATE IV Last administered on 06/05/16at 02:51; Admin Dose 15 MLS/HR; Start 06/04/16 at 18:30 Calos Peralta DO Jun 05, 2016 11:03
--- NOTE | 2016-06-05 13:31 | CONS ---
Date/Time of Note Date/Time of Note DATE: 06/05/16 TIME: 13:28 Assessment/Plan Assessment/Plan Chief Complaint/Hosp Course - Acute Kidney Injury post Contrast - CKD ( ? HTN Nephrosclerosis ) - Acute CO - Hyperkalemia - ? Rhabdomyolysis - COPD - Hx of Temporal Arteritis - CAD/CHF PLAN: Improving Creatinine & ATN Tolerated Cardiac Angiogram well Renal back to baseline Started on Bumex yesterday Increased SOB , received an extra dose of LASIX Continue with Bumex IV 2 mg q day Will give it with Albumin 5% Start Diamox 250 mg po q day as well for diuresis & Alk. Problems: Consultation Date/Type/Reason Admit Date/Time May 26, 2016 at 19:17 Initial Consult Date 05/28/16 Type of Consultation: Nephrology Reason for Consultation JOE post Contrast 24 HR Interval Summary Constitutional: improved Exam/Review of Systems Vital Signs Vitals Vital Signs Date Time Temp Pulse Resp B/P Pulse Ox O2 Delivery O2 Flow Rate FiO2 06/05/16 12:15 96 06/05/16 11:33 98.0 22 106/59 94 06/05/16 09:32 6.0 06/05/16 09:32 Nasal Cannula 06/02/16 01:55 35 Intake and Output 06/04/16 06/04/16 06/05/16 15:00 23:00 07:00 Intake Total 320 ml 240 ml 166.7 ml Output Total 785 ml 2950 ml Balance -465 ml 240 ml -2783.3 ml Exam Constitutional: alert Head: normocephalic Eyes: nl conjunctiva ENMT: nl external ears & nose Neck: supple Respiratory: crackles/rales Cardiovascular: regular rate and rhythm, systolic murmur Results Result Diagram: 06/05/16 0600 06/05/16 0600 Results 24 hrs Laboratory Tests Test 06/04/16 13:30 06/04/16 17:04 06/04/16 20:51 06/05/16 00:20 Bedside Glucose 104 116 103 Troponin I 0.852 *H Test 06/05/16 06:00 06/05/16 07:57 06/05/16 11:59 Anion Gap 13 Basophils # 0.0 Basophils % 0.3 Blood Morphology Comment Blood Urea Nitrogen 39 H Calcium Level 8.6 Carbon Dioxide Level 41 *H Chloride Level 95 L Creatinine 1.02 Eosinophils # 0.1 Eosinophils % 1.8 Glucose Level 92 Hematocrit 32.7 L Hemoglobin 10.8 L Lymphocytes # 1.1 Lymphocytes % 16.2 Magnesium Level 2.0 Mean Corpuscular Hemoglobin 32.5 Mean Corpuscular Hemoglobin Concent 33.1 Mean Corpuscular Volume 98.3 Mean Platelet Volume 8.5 Monocytes # 0.7 Monocytes % 10.1 Neutrophils # 5.0 Neutrophils % 71.6 Nucleated Red Blood Cells # 0.0 Nucleated Red Blood Cells % 0.0 Phosphorus Level 2.7 Platelet Count 295 Potassium Level 3.9 Red Blood Count 3.33 L Red Cell Distribution Width 16.3 H Sodium Level 145 H White Blood Count 7.0 Bedside Glucose 98 126 Medications Medications Current Medications Aspirin (Halfprin) 81 mg DAILY PO Last administered on 06/05/16 09:06; Admin Dose 81 MG; Start 05/27/16 at 09:00 Clopidogrel Bisulfate (plaVIX) 75 mg DAILY PO Last administered on 06/05/16 09:06; Admin Dose 75 MG; Start 05/27/16 at 09:00 Ferrous Sulfate (Ferrous Sulfate (Ec)) 325 mg BID PO Last administered on 06/04 20:47; Admin Dose 325 MG; Start 05/27/16 at 09:00 Fluticasone Propionate (Flonase 0.05% Nasal) 1 spray BID NASAL Last administered on 06/05/16 09:07; Admin Dose 1 SPRAY; Start 05/27/16 at 09:00 Gabapentin (Neurontin) 300 mg TID PO Last administered on 06/05/16 09:06; Admin Dose 300 MG; Start 05/27/16 at 09:00 Guaifenesin/ Dextromethorphan (Robitussin Dm Liquid Cup) 10 ml Q4H PRN PO COUGH ; Start 05/26/16 at 21:30 Montelukast Sodium (Singulair) 10 mg HS PO Last administered on 06/04/16 20: 47; Admin Dose 10 MG; Start 05/27/16 at 21:00 Oxycodone/ Acetaminophen (Endocet (10/ 325)) 1 tab Q6 PRN PO PAIN; Start 05/26 at 21:30 Salmeterol Xinafoate/ Fluticasone (Advair 500/50 Diskus) 1 inh BID INH Last administered on 06/05/16at 09:07; Admin Dose 1 INH; Start 05/27/16 at 09:00 Acetaminophen (Tylenol Tab) 650 mg Q4H PRN PO pain/fever; Start 05/26/16 at 21 :30 Ondansetron HCl (Zofran Inj) 4 mg Q4H PRN IV nausea Last administered on at 17:32; Admin Dose 4 MG; Start 05/26/16 at 21:30 Guaifenesin/ Dextromethorphan (Mucinex Dm) 1 tab BID PO Last administered on at 09:06; Admin Dose 1 TAB; Start 05/27/16 at 09:00 Fish Oil (Fish Oil) 1,000 mg DAILY PO Last administered on 06/04/16at 08:58; Admin Dose 1,000 MG; Start 05/27/16 at 09:00 Atorvastatin Calcium (Lipitor) 80 mg DAILY@21 PO Last administered on at 20:47; Admin Dose 80 MG; Start 05/27/16 at 00:00 Tramadol HCl (Ultram) 50 mg Q6H PRN PO PAIN Last administered on 06/02/16at 20: 40; Admin Dose 50 MG; Start 05/27/16 at 14:00 Miscellaneous Information 1 ea NOTE XX ; Start 05/27/16 at 18:30 Glucose (Glutose) 15 gm Q15M PRN PO DECREASED GLUCOSE; Start 05/27/16 at 18:30 Glucose (Glutose) 22.5 gm Q15M PRN PO DECREASED GLUCOSE; Start 05/27/16 at 18: 30 Dextrose (D50w Syringe) 25 ml Q15M PRN IV DECREASED GLUCOSE; Start 05/27/16 at 18:30 Dextrose (D50w Syringe) 50 ml Q15M PRN IV DECREASED GLUCOSE; Start 05/27/16 at 18:30 Glucagon (Glucagen) 1 mg Q15M PRN IM DECREASED GLUCOSE; Start 05/27/16 at 18: 30 Glucose (Glutose) 15 gm Q15M PRN BUCCAL DECREASED GLUCOSE; Start 05/27/16 at 18:30 IV Flush (NS 10 ml) 10 ml PRN PRN IV IV PROTOCOL; Start 05/28/16 at 17:30 Prednisone (Prednisone) 40 mg DAILY PO Last administered on 06/05/16at 09:06; Admin Dose 40 MG; Start 05/30/16 at 09:00 Morphine Sulfate (morphine) 1 mg Q4H PRN IV PAIN Last administered on at 19:56; Admin Dose 1 MG; Start 06/01/16 at 09:30 Docusate Sodium (Colace) 100 mg BID PO Last administered on 06/04/16at 20:47; Admin Dose 100 MG; Start 06/01/16 at 21:00 Senna (Senokot) 1 tab BID PRN PO CONSTIPATION; Start 06/01/16 at 18:30 Enoxaparin Sodium 80 mg 80 mg BID SC Last administered on 06/05/16at 09:12; Admin Dose 80 MG; Start 06/03/16 at 21:00 Albumin Human (Albumin Human 25%) 50 ml @ 100 mls/hr AM IV Last administered on 06/04/16at 14:17; Admin Dose 100 MLS/HR; Start 06/04/16 at 13:30; Stop at 13:29 Bumetanide (Bumex) 2 mg DAILY IV Last administered on 06/04/16at 14:14; Admin Dose 2 MG; Start 06/04/16 at 13:30; Stop 06/07/16 at 13:29 Amiodarone HCl (Cordarone) 200 mg TID PO ; Start 06/05/16 at 13:00 Metoprolol Tartrate (Lopressor) 50 mg TID PO ; Start 06/05/16 at 13:00 Digoxin 0.125 mg 0.125 mg DAILY@13 PO ; Start 06/06/16 at 13:00 Diltiazem HCl (Cardizem-D5W 125 Mg/125 ml Drip) 125 ml @ 5 mls/hr TITRATE IV ; Start 06/05/16 at 11:30 PATT FARRELL MD Jun 05, 2016 13:31
--- NOTE | 2016-06-05 13:36 | PN ---
Date/Time of Note Date/Time of Note DATE: 06/05/16 TIME: 13:30 Assessment/Plan VTE Prophylaxis VTE Prophylaxis Intervention: LMWH Lines/Catheters IV Catheter Type (from Nrsg): PICC Line Central line still needed: Yes (for IV access ) Urinary Cath still in place: Yes Reason Cath still needed: other (indicate) (monitor UOP while diuresing ) Assessment/Plan Assessment/Plan 80 yo male with: 1. NSTEMI, patient s/p TAVR and with cardiomyopathy with troponin picked up at 13, S/p PTCA with 1 stent to circ. s/p Cardioversion for Afib 2 days ago and back in A fib yesterday, on Cardizem gtt now. Echo with EF 30% On 6L NC this AM after diuresis yesterday Continue ASA and Plavix, BBlock 2. Atrial fibrillation/Atrial Flutter, s/p Cardioversion 2 days ago but now back in A fib and on Cardizem gtt for control Continue Amiodarone, Lopressor. Lovenox rx dose and monitoring closely for bleeding 3. COPD, O2 dependent: on NC currently and BiPAP prn Continue Prednisone to 40 daily for now and will taper further slowly back to outpatient dosing. Nebs rx , Advair and Spiriva CHeck ABG as patient noted to have bicarb up to 41 4. JOE on CKD: Appreciate Dr Cordero's recommendations, resolved Renal function recovered and electrolytes stable Continue diuresis 5. S/p accidental fall weekend prior to admission with RLE Hematoma and RUE ecchymosis and right rib fractures Pain control with Percocet prn and Tramadol prn Hb stable and CT right LE noted. Continue to monitor 6. Acute on chronic Anemia with hematomas and blood loss: s/p 2 units pRBC last week and stable Hb since then Monitor h/h 7. Chronic back pain with acute component now with rib fractures: Percocet and tramadol prn 8. Hypertension: Currently low BP so holding Diovan 9. Congestive heart failure, systolic dysfunction EF 30 % on echo. S/p episode of volume overload and respiratory distress requiring BIPAP, diuresis prn and ICU monitoring Much less peripheral edema but pulmonary edema noted Diuresis 10. Temporal arteritis. The patient is already on prednisone. 11. Previous history of transient ischemic attack. Patient's mental status is stable and at baseline. Monitor Prophylaxis: SCDs as tolerated, PPI for GI ppx while on steroids especially Disposition: On Tele, HR control and diuresis prn. Follow up cardiology and Nephro recommendations. Subjective 24 Hr Interval Summary Free Text/Dictation Patient with episode of Respiratory distress acute on chronic, better after Lasix given and HR better controlled Patient back in A fib yesterday afternoon, RVR overnight and on Cardizem gtt now @15 Renal function fairly stable Exam/Review of Systems Vital Signs Vitals Vital Signs Date Time Temp Pulse Resp B/P Pulse Ox O2 Delivery O2 Flow Rate FiO2 06/05/16 12:15 96 06/05/16 11:33 98.0 22 106/59 94 06/05/16 09:32 6.0 06/05/16 09:32 Nasal Cannula 06/02/16 01:55 35 Intake and Output 06/04/16 06/04/16 06/05/16 15:00 23:00 07:00 Intake Total 320 ml 240 ml 166.7 ml Output Total 785 ml 2950 ml Balance -465 ml 240 ml -2783.3 ml Exam Constitutional: alert, frail, oriented, other (better today however) Respiratory: diminished breath sounds (bases ), normal air movement Cardiovascular: irregular rhythm (atrial fib ) Gastrointestinal: non-tender, soft Musculoskeletal: other (much less edema ) Skin: ecchymosis (improving ) Results Result Diagram: 06/05/16 0600 06/05/16 0600 Results 24 hrs Laboratory Tests Test 06/04/16 17:04 06/04/16 20:51 06/05/16 00:20 06/05/16 06:00 Bedside Glucose 116 103 Troponin I 0.852 *H Anion Gap 13 Basophils # 0.0 Basophils % 0.3 Blood Morphology Comment Blood Urea Nitrogen 39 H Calcium Level 8.6 Carbon Dioxide Level 41 *H Chloride Level 95 L Creatinine 1.02 Eosinophils # 0.1 Eosinophils % 1.8 Glucose Level 92 Hematocrit 32.7 L Hemoglobin 10.8 L Lymphocytes # 1.1 Lymphocytes % 16.2 Magnesium Level 2.0 Mean Corpuscular Hemoglobin 32.5 Mean Corpuscular Hemoglobin Concent 33.1 Mean Corpuscular Volume 98.3 Mean Platelet Volume 8.5 Monocytes # 0.7 Monocytes % 10.1 Neutrophils # 5.0 Neutrophils % 71.6 Nucleated Red Blood Cells # 0.0 Nucleated Red Blood Cells % 0.0 Phosphorus Level 2.7 Platelet Count 295 Potassium Level 3.9 Red Blood Count 3.33 L Red Cell Distribution Width 16.3 H Sodium Level 145 H White Blood Count 7.0 Test 06/05/16 07:57 06/05/16 11:59 Bedside Glucose 98 126 Medications Medications Current Medications Aspirin (Halfprin) 81 mg DAILY PO Last administered on 06/05/16 09:06; Admin Dose 81 MG; Start 05/27/16 at 09:00 Clopidogrel Bisulfate (plaVIX) 75 mg DAILY PO Last administered on 06/05/16 09:06; Admin Dose 75 MG; Start 05/27/16 at 09:00 Ferrous Sulfate (Ferrous Sulfate (Ec)) 325 mg BID PO Last administered on 06/04 20:47; Admin Dose 325 MG; Start 05/27/16 at 09:00 Fluticasone Propionate (Flonase 0.05% Nasal) 1 spray BID NASAL Last administered on 06/05/16 09:07; Admin Dose 1 SPRAY; Start 05/27/16 at 09:00 Gabapentin (Neurontin) 300 mg TID PO Last administered on 06/05/16 09:06; Admin Dose 300 MG; Start 05/27/16 at 09:00 Guaifenesin/ Dextromethorphan (Robitussin Dm Liquid Cup) 10 ml Q4H PRN PO COUGH ; Start 05/26/16 at 21:30 Montelukast Sodium (Singulair) 10 mg HS PO Last administered on 06/04/16 20: 47; Admin Dose 10 MG; Start 05/27/16 at 21:00 Oxycodone/ Acetaminophen (Endocet (10/ 325)) 1 tab Q6 PRN PO PAIN; Start 05/26 at 21:30 Salmeterol Xinafoate/ Fluticasone (Advair 500/50 Diskus) 1 inh BID INH Last administered on 06/05/16 09:07; Admin Dose 1 INH; Start 05/27/16 at 09:00 Acetaminophen (Tylenol Tab) 650 mg Q4H PRN PO pain/fever; Start 05/26/16 at 21 :30 Ondansetron HCl (Zofran Inj) 4 mg Q4H PRN IV nausea Last administered on 17:32; Admin Dose 4 MG; Start 05/26/16 at 21:30 Guaifenesin/ Dextromethorphan (Mucinex Dm) 1 tab BID PO Last administered on at 09:06; Admin Dose 1 TAB; Start 05/27/16 at 09:00 Fish Oil (Fish Oil) 1,000 mg DAILY PO Last administered on 06/04/16at 08:58; Admin Dose 1,000 MG; Start 05/27/16 at 09:00 Atorvastatin Calcium (Lipitor) 80 mg DAILY@21 PO Last administered on at 20:47; Admin Dose 80 MG; Start 05/27/16 at 00:00 Tramadol HCl (Ultram) 50 mg Q6H PRN PO PAIN Last administered on 06/02/16at 20: 40; Admin Dose 50 MG; Start 05/27/16 at 14:00 Miscellaneous Information 1 ea NOTE XX ; Start 05/27/16 at 18:30 Glucose (Glutose) 15 gm Q15M PRN PO DECREASED GLUCOSE; Start 05/27/16 at 18:30 Glucose (Glutose) 22.5 gm Q15M PRN PO DECREASED GLUCOSE; Start 05/27/16 at 18: 30 Dextrose (D50w Syringe) 25 ml Q15M PRN IV DECREASED GLUCOSE; Start 05/27/16 at 18:30 Dextrose (D50w Syringe) 50 ml Q15M PRN IV DECREASED GLUCOSE; Start 05/27/16 at 18:30 Glucagon (Glucagen) 1 mg Q15M PRN IM DECREASED GLUCOSE; Start 05/27/16 at 18: 30 Glucose (Glutose) 15 gm Q15M PRN BUCCAL DECREASED GLUCOSE; Start 05/27/16 at 18:30 IV Flush (NS 10 ml) 10 ml PRN PRN IV IV PROTOCOL; Start 05/28/16 at 17:30 Prednisone (Prednisone) 40 mg DAILY PO Last administered on 06/05/16at 09:06; Admin Dose 40 MG; Start 05/30/16 at 09:00 Morphine Sulfate (morphine) 1 mg Q4H PRN IV PAIN Last administered on at 19:56; Admin Dose 1 MG; Start 06/01/16 at 09:30 Docusate Sodium (Colace) 100 mg BID PO Last administered on 06/04/16at 20:47; Admin Dose 100 MG; Start 06/01/16 at 21:00 Senna (Senokot) 1 tab BID PRN PO CONSTIPATION; Start 06/01/16 at 18:30 Enoxaparin Sodium 80 mg 80 mg BID SC Last administered on 06/05/16at 09:12; Admin Dose 80 MG; Start 06/03/16 at 21:00 Albumin Human (Albumin Human 25%) 50 ml @ 100 mls/hr AM IV Last administered on 06/04/16at 14:17; Admin Dose 100 MLS/HR; Start 06/04/16 at 13:30; Stop at 13:29 Bumetanide (Bumex) 2 mg DAILY IV Last administered on 06/04/16at 14:14; Admin Dose 2 MG; Start 06/04/16 at 13:30; Stop 06/07/16 at 13:29 Amiodarone HCl (Cordarone) 200 mg TID PO ; Start 06/05/16 at 13:00 Metoprolol Tartrate (Lopressor) 50 mg TID PO ; Start 06/05/16 at 13:00 Digoxin 0.125 mg 0.125 mg DAILY@13 PO ; Start 06/06/16 at 13:00 Diltiazem HCl (Cardizem-D5W 125 Mg/125 ml Drip) 125 ml @ 5 mls/hr TITRATE IV ; Start 06/05/16 at 11:30 RICHIE SWEET Jun 05, 2016 13:36
[2016-06-05 14:08] LABS: AADO2 Arterial 118.9 mmHg (7.0-24.0); Allen Test ACCEPTAB; Arterial Base Excess 9.4 mmol/L (-3.0-3); Arterial COHb 0.2 % (0.0-3.0); Arterial Fraction of Oxyhgb 94.4 % (93.0-99.0); Arterial HCO3 35.2 mmol/L (22.0-26.0); Arterial MetHb 0.2 % (0.0-1.5); Arterial Total Hemglobin 11.7 g/dl (12.0-18.0); MODE NASAL CANNULA
[2016-06-05] MEDS: ALBUMIN HUMAN 25% 50 ML IV SCH (14:20)
[2016-06-05] MEDS: BUMETANIDE 1 MG INJ IV SCH (14:21)
[2016-06-05] MEDS: ACETAZOLAMIDE 250 MG TAB PO SCH ×2 (14:52→21:06)
[2016-06-05] MEDS: FISH OIL 1,000 MG CAP PO SCH (14:53)
[2016-06-05] MEDS: FERROUS SULFATE (EC) 325 MG TAB PO SCH ×2 (14:53→21:06)
[2016-06-05] MEDS: DOCUSATE SODIUM 100 MG CAP PO SCH ×2 (14:53→21:05)
[2016-06-05] MEDS ORDERED: AMIODARONE 900 MG in DEXTROSE 5% 482 ML IV SCH (20:30)
[2016-06-05] MEDS: morphine 2 MG INJ IV PRN (20:49)
[2016-06-05] MEDS: APIXABAN 5 MG TABLET PO SCH (21:06)
[2016-06-05] MEDS: ATORVASTATIN 80 MG TAB PO SCH (21:06)
[2016-06-05] MEDS: MONTELUKAST 10 MG TAB PO SCH (21:07)
[2016-06-06] VITALS (13 sets, daily range): BP systolic 108–146; BP diastolic 53–66; PULSE 42–68; RESP 18–20
[2016-06-06] MEDS: ALBUTEROL/IPRATROPIUM (NEB) 3 ML AMP HHN SCH ×4 (01:23→19:56)
[2016-06-06 06:49] LABS: BASOPHILS % 0.3 % (0.0-2.0); HEMATOCRIT 30.1 % (42.0-52.0); HEMOGLOBIN 9.9 g/dl (14.0-18.0); LYMPHOCYTES % 12.2 % (15.0-51.0); MEAN CORPUSCULAR HEMOGLOBIN 32.1 pg (29.0-33.0); MEAN CORPUSCULAR HGB CONC 32.8 g/dl (32.0-37.0); MEAN CORPUSCULAR VOLUME 97.9 fl (82.0-101.0); MEAN PLATELET VOLUME 8.6 fl (7.4-10.4); MONOCYTE # 0.6 10^3/ul (0.3-0.9); MONOCYTES % 6.9 % (0.0-11.0); NEUTROPHIL # 6.6 10^3/ul (1.6-7.5); NEUTROPHILS % 80.6 % (39.0-77.0); PLATELET COUNT 269 10^3/UL (140-440); RED BLOOD COUNT 3.07 10^6/ul (4.70-6.10); RED CELL DISTRIBUTION WIDTH 16.1 % (11.5-14.5); UNCORRECTED WBC 8.2 10^3/ul (4.8-10.8); WHITE BLOOD COUNT 8.2 10^3/ul (4.8-10.8)
[2016-06-06 06:59] LABS: PHOSPHORUS 3.5 mg/dl (2.5-4.9)
[2016-06-06 07:07] LABS: CONDITION 1; LH ANALYZER COMMENTS 1
[2016-06-06 07:14] LABS: POTASSIUM 4.2 mmol/L (3.5-5.1)
[2016-06-06 07:16] LABS: CREATININE 1.34 mg/dl (0.61-1.24)
[2016-06-06 07:27] LABS: CALCIUM 8.2 mg/dl (8.4-10.2)
[2016-06-06] MEDS: INSULIN ASPART [NOVOLOG] 3 ML PEN SC SCH ×4 (07:55→20:59)
[2016-06-06] MEDS: AMIODARONE 200 MG TAB PO SCH ×2 (09:00→12:18)
[2016-06-06] MEDS: METOPROLOL 50 MG TAB PO SCH ×3 (09:00→20:39)
[2016-06-06] MEDS: GUAIFENESIN/DM (SR) TAB PO SCH ×2 (09:42→20:39)
[2016-06-06] MEDS: SALMETEROL/FLUTICASONE 500/50 INHA INH SCH ×2 (09:42→20:38)
[2016-06-06] MEDS: ACETAZOLAMIDE 250 MG TAB PO SCH (09:42)
[2016-06-06] MEDS: BUMETANIDE 1 MG INJ IV SCH (09:43)
[2016-06-06] MEDS: ALBUMIN HUMAN 25% 50 ML IV SCH (09:44)
[2016-06-06] MEDS: FISH OIL 1,000 MG CAP PO SCH (09:44)
[2016-06-06] MEDS: APIXABAN 5 MG TABLET PO SCH ×2 (09:45→20:39)
[2016-06-06] MEDS: DOCUSATE SODIUM 100 MG CAP PO SCH ×2 (09:45→20:39)
[2016-06-06] MEDS: GABAPENTIN 300 MG CAP PO SCH ×3 (09:45→20:39)
[2016-06-06] MEDS: FLUTICASONE 0.05% 16 GM NAS SPRAY NASAL SCH ×2 (09:45→20:38)
[2016-06-06] MEDS: FERROUS SULFATE (EC) 325 MG TAB PO SCH ×2 (09:45→20:39)
[2016-06-06] MEDS: ASPIRIN (EC) 81 MG TAB PO SCH (09:45)
[2016-06-06] MEDS: CLOPIDOGREL 75 MG TAB PO SCH (09:46)
[2016-06-06] MEDS: predniSONE 20 MG TAB PO SCH (09:46)
--- NOTE | 2016-06-06 13:20 | PN ---
Date/Time of Note Date/Time of Note DATE: 06/06/16 TIME: 13:07 Assessment/Plan VTE Prophylaxis VTE Prophylaxis Intervention: LMWH Lines/Catheters IV Catheter Type (from Nrsg): PICC Line Central line still needed: Yes (for IV access) Urinary Cath still in place: Yes Reason Cath still needed: other (indicate) (monitor UOP while diuresing ) Assessment/Plan Assessment/Plan 80 yo male with: 1. NSTEMI, patient s/p TAVR and with cardiomyopathy with troponin picked up at 13, S/p PTCA with 1 stent to circ. s/p Cardioversion for Afib 3 days ago and back in A fib 2 days ago and converted back to SR last night while on Amio and after a 30 sec pause ... Echo with EF 30% On 6L NC and being diuresed Continue ASA and Plavix, BBlock 2. Atrial fibrillation/Atrial Flutter, back in SR overnight while on Amio and after 30 sec pause F/u cardiology recommendations, ? will patient need pacer soon? Continue Amiodarone, Lopressor. Lovenox rx dose and monitoring closely for bleeding 3. COPD, O2 dependent: on NC currently and BiPAP prn Continue Prednisone to 40 daily for now and will taper further slowly back to outpatient dosing. Nebs rx , Advair and Spiriva Discussed with Pulmonology, Bicarb close to baseline at 41, pH wnl so no further recommendations at this time 4. JOE on CKD: Appreciate Dr Cordero's recommendations, Continue diuresis Renal function did recover but now likely prerenal azotemia with ongoing Diuresis. Electrolytes stable 5. S/p accidental fall weekend prior to admission with RLE Hematoma and RUE ecchymosis and right rib fractures Pain control with Percocet prn and Tramadol prn Hb stable and CT right LE noted. Continue to monitor 6. Acute on chronic Anemia with hematomas and blood loss: s/p 2 units pRBC last week and stable Hb since then Monitor h/h 7. Chronic back pain with acute component now with rib fractures: Percocet and tramadol prn 8. Hypertension: Currently low BP so holding Diovan 9. Congestive heart failure, systolic dysfunction EF 30 % on echo. S/p episode of volume overload and respiratory distress requiring BIPAP, Much less peripheral edema but pulmonary edema noted Diuresis ongoing. 10. Temporal arteritis. The patient is already on prednisone. 11. Previous history of transient ischemic attack. Patient's mental status is stable and at baseline. Monitor Prophylaxis: SCDs as tolerated, PPI for GI ppx while on steroids especially Disposition: On Tele, back in SR and diuresis prn. Follow up cardiology and Nephro recommendations. Subjective 24 Hr Interval Summary Free Text/Dictation Patient converted overnight after 30 sec pause while on Amio gtt BP stable Diuresing Respiratory status OK Exam/Review of Systems Vital Signs Vitals Vital Signs Date Time Temp Pulse Resp B/P Pulse Ox O2 Delivery O2 Flow Rate FiO2 06/06/16 12:15 62 06/06/16 11:06 97.6 20 129/60 100 06/06/16 09:19 4.0 06/06/16 09:16 Nasal Cannula Intake and Output 06/05/16 06/05/16 06/06/16 15:00 23:00 07:00 Intake Total 1050 ml 453 ml Output Total 2450 ml 525 ml Balance -1400 ml -72 ml Exam Constitutional: alert, oriented, well developed Cardiovascular: nl pulses, other (back in SR ), regular rate and rhythm Gastrointestinal: non-tender, soft Musculoskeletal: other (RLE hematoma) Extremities: normal pulses, other (no edema, clubbing or cyanosis ) 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, lethargic, nl mental status, nl speech, other (awake and alert ) Results Result Diagram: 06/06/16 0516 06/06/16 0516 Results 24 hrs Laboratory Tests Test 06/05/16 13:29 06/05/16 17:26 06/05/16 21:09 06/06/16 02:41 Arterial Blood HCO3 35.2 H Arterial Blood Base Excess 9.4 H Arterial Blood Oxygen Saturation 94.8 L [place] Test ACCEPTAB Arterial Blood Gas Puncture Site Right Radial Arterial Blood Carboxyhemoglobin 0.2 Arterial Blood Date Drawn 06/05/2016 1:50:08 PM Arterial Blood Methemoglobin 0.2 Arterial Blood pCO2 (Temp correct) 53.8 H Arterial Blood pH (Temp corrected) 7.434 Arterial Blood pO2 (Temp corrected) 75.4 L Blood Gas A-a O2 Differential 118.9 H Blood Gas Modality NASAL CANNULA Blood Gas Notified Time 06/05/2016 2:08:07 PM Blood Gas Notified Whom JLD Blood Gas Specimen Source Blood arterial Blood Gas Temperature 37.0 FiO2 36.0 Oxyhemoglobin Percent 94.4 Total Hemoglobin 11.7 L Bedside Glucose 199 208 167 Test 06/06/16 05:16 06/06/16 08:33 06/06/16 12:14 Anion Gap 12 Basophils # 0.0 Basophils % 0.3 Blood Morphology Comment Blood Urea Nitrogen 41 H Calcium Level 8.2 L Carbon Dioxide Level 41 *H Chloride Level 92 L Creatinine 1.34 H Eosinophils # 0.0 Eosinophils % 0.0 Glucose Level 125 Hematocrit 30.1 L Hemoglobin 9.9 L Lymphocytes # 1.0 Lymphocytes % 12.2 L Magnesium Level 2.0 Mean Corpuscular Hemoglobin 32.1 Mean Corpuscular Hemoglobin Concent 32.8 Mean Corpuscular Volume 97.9 Mean Platelet Volume 8.6 Monocytes # 0.6 Monocytes % 6.9 Neutrophils # 6.6 Neutrophils % 80.6 H Nucleated Red Blood Cells # 0.0 Nucleated Red Blood Cells % 0.0 Phosphorus Level 3.5 Platelet Count 269 Potassium Level 4.2 Red Blood Count 3.07 L Red Cell Distribution Width 16.1 H Sodium Level 141 White Blood Count 8.2 Bedside Glucose 114 122 Medications Medications Current Medications Aspirin (Halfprin) 81 mg DAILY PO Last administered on 06/06/16 09:45; Admin Dose 81 MG; Start 05/27/16 at 09:00 Clopidogrel Bisulfate (plaVIX) 75 mg DAILY PO Last administered on 06/06/16at 09:46; Admin Dose 75 MG; Start 05/27/16 at 09:00 Ferrous Sulfate (Ferrous Sulfate (Ec)) 325 mg BID PO Last administered on 06/06 09:45; Admin Dose 325 MG; Start 05/27/16 at 09:00 Fluticasone Propionate (Flonase 0.05% Nasal) 1 spray BID NASAL Last administered on 06/06/16 09:45; Admin Dose 1 SPRAY; Start 05/27/16 at 09:00 Gabapentin (Neurontin) 300 mg TID PO Last administered on 06/06/16 09:45; Admin Dose 300 MG; Start 05/27/16 at 09:00 Guaifenesin/ Dextromethorphan (Robitussin Dm Liquid Cup) 10 ml Q4H PRN PO COUGH ; Start 05/26/16 at 21:30 Montelukast Sodium (Singulair) 10 mg HS PO Last administered on 06/05/16at 21: 07; Admin Dose 10 MG; Start 05/27/16 at 21:00 Oxycodone/ Acetaminophen (Endocet (10/ 325)) 1 tab Q6 PRN PO PAIN; Start 05/26 at 21:30 Salmeterol Xinafoate/ Fluticasone (Advair 500/50 Diskus) 1 inh BID INH Last administered on 06/06/16at 09:42; Admin Dose 1 INH; Start 05/27/16 at 09:00 Acetaminophen (Tylenol Tab) 650 mg Q4H PRN PO pain/fever; Start 05/26/16 at 21 :30 Ondansetron HCl (Zofran Inj) 4 mg Q4H PRN IV nausea Last administered on at 17:32; Admin Dose 4 MG; Start 05/26/16 at 21:30 Guaifenesin/ Dextromethorphan (Mucinex Dm) 1 tab BID PO Last administered on at 09:42; Admin Dose 1 TAB; Start 05/27/16 at 09:00 Fish Oil (Fish Oil) 1,000 mg DAILY PO Last administered on 06/06/16at 09:44; Admin Dose 1,000 MG; Start 05/27/16 at 09:00 Atorvastatin Calcium (Lipitor) 80 mg DAILY@21 PO Last administered on at 21:06; Admin Dose 80 MG; Start 05/27/16 at 00:00 Tramadol HCl (Ultram) 50 mg Q6H PRN PO PAIN Last administered on 06/02/16at 20: 40; Admin Dose 50 MG; Start 05/27/16 at 14:00 Miscellaneous Information 1 ea NOTE XX ; Start 05/27/16 at 18:30 Glucose (Glutose) 15 gm Q15M PRN PO DECREASED GLUCOSE; Start 05/27/16 at 18:30 Glucose (Glutose) 22.5 gm Q15M PRN PO DECREASED GLUCOSE; Start 05/27/16 at 18: 30 Dextrose (D50w Syringe) 25 ml Q15M PRN IV DECREASED GLUCOSE; Start 05/27/16 at 18:30 Dextrose (D50w Syringe) 50 ml Q15M PRN IV DECREASED GLUCOSE; Start 05/27/16 at 18:30 Glucagon (Glucagen) 1 mg Q15M PRN IM DECREASED GLUCOSE; Start 05/27/16 at 18: 30 Glucose (Glutose) 15 gm Q15M PRN BUCCAL DECREASED GLUCOSE; Start 05/27/16 at 18:30 IV Flush (NS 10 ml) 10 ml PRN PRN IV IV PROTOCOL; Start 05/28/16 at 17:30 Prednisone (Prednisone) 40 mg DAILY PO Last administered on 06/06/16at 09:46; Admin Dose 40 MG; Start 05/30/16 at 09:00 Morphine Sulfate (morphine) 1 mg Q4H PRN IV PAIN Last administered on at 20:49; Admin Dose 1 MG; Start 06/01/16 at 09:30 Docusate Sodium (Colace) 100 mg BID PO Last administered on 06/06/16at 09:45; Admin Dose 100 MG; Start 06/01/16 at 21:00 Senna 1 tab 1 tab BID PRN PO CONSTIPATION; Start 06/01/16 at 18:30 Albumin Human (Albumin Human 25%) 50 ml @ 100 mls/hr AM IV Last administered on 06/06/16at 09:44; Admin Dose 100 MLS/HR; Start 06/04/16 at 13:30; Stop at 13:29 Bumetanide (Bumex) 2 mg DAILY IV Last administered on 06/06/16at 09:43; Admin Dose 2 MG; Start 06/04/16 at 13:30; Stop 06/07/16 at 13:29 Amiodarone HCl (Cordarone) 200 mg TID PO Last administered on 06/06/16at 12:18 ; Admin Dose 200 MG; Start 06/05/16 at 13:00 Metoprolol Tartrate (Lopressor) 50 mg TID PO Last administered on 06/05/16at 22 :50; Admin Dose 50 MG; Start 06/05/16 at 13:00 Digoxin 0.125 mg 0.125 mg DAILY@13 PO ; Start 06/06/16 at 13:00 Diltiazem HCl (Cardizem-D5W 125 Mg/125 ml Drip) 125 ml @ 5 mls/hr TITRATE IV Last administered on 06/05/16at 19:43; Admin Dose 15 MLS/HR; Start 06/05/16 at 11:30 Acetazolamide (Diamox) 250 mg BID PO Last administered on 06/06/16at 09:42; Admin Dose 250 MG; Start 06/05/16 at 14:30 Apixaban (Eliquis) 5 mg BID PO Last administered on 06/06/16at 09:45; Admin Dose 5 MG; Start 06/05/16 at 21:00 RICHIE SWEET Jun 06, 2016 13:17
[2016-06-06] MEDS: DIGOXIN 0.125 MG TAB PO SCH (13:34)
--- NOTE | 2016-06-06 16:36 | CONS ---
Date/Time of Note Date/Time of Note DATE: 06/06/16 TIME: 16:34 Assessment/Plan Assessment/Plan Chief Complaint/Hosp Course - Acute Kidney Injury post Contrast - CKD ( ? HTN Nephrosclerosis ) - Acute MD - Hyperkalemia - ? Rhabdomyolysis - COPD - Hx of Temporal Arteritis - CAD/CHF PLAN: Increased creatinine today Was started on BUMEX + Diamox Will back off diuretics from today Restrict Fluids Monitor labs closely Holding off adding ACEi due to increasing creatinine Problems: Consultation Date/Type/Reason Admit Date/Time May 26, 2016 at 19:17 Initial Consult Date 05/28/16 Type of Consultation: Nephrology Reason for Consultation JOE / CKD 24 HR Interval Summary Constitutional: improved Exam/Review of Systems Vital Signs Vitals Vital Signs Date Time Temp Pulse Resp B/P Pulse Ox O2 Delivery O2 Flow Rate FiO2 06/06/16 15:36 98.3 61 20 120/56 94 06/06/16 13:58 4.0 06/06/16 09:16 Nasal Cannula Intake and Output 06/05/16 06/05/16 06/06/16 15:00 23:00 07:00 Intake Total 1050 ml 453 ml Output Total 2450 ml 525 ml Balance -1400 ml -72 ml Exam Constitutional: alert Psych: no complaints Head: normocephalic Eyes: nl conjunctiva Neck: supple Respiratory: crackles/rales Cardiovascular: systolic murmur Gastrointestinal: soft Results Result Diagram: 06/06/16 0516 06/06/16 0516 Results 24 hrs Laboratory Tests Test 06/05/16 17:26 06/05/16 21:09 06/06/16 02:41 06/06/16 05:16 Bedside Glucose 199 208 167 Anion Gap 12 Basophils # 0.0 Basophils % 0.3 Blood Morphology Comment Blood Urea Nitrogen 41 H Calcium Level 8.2 L Carbon Dioxide Level 41 *H Chloride Level 92 L Creatinine 1.34 H Eosinophils # 0.0 Eosinophils % 0.0 Glucose Level 125 Hematocrit 30.1 L Hemoglobin 9.9 L Lymphocytes # 1.0 Lymphocytes % 12.2 L Magnesium Level 2.0 Mean Corpuscular Hemoglobin 32.1 Mean Corpuscular Hemoglobin Concent 32.8 Mean Corpuscular Volume 97.9 Mean Platelet Volume 8.6 Monocytes # 0.6 Monocytes % 6.9 Neutrophils # 6.6 Neutrophils % 80.6 H Nucleated Red Blood Cells # 0.0 Nucleated Red Blood Cells % 0.0 Phosphorus Level 3.5 Platelet Count 269 Potassium Level 4.2 Red Blood Count 3.07 L Red Cell Distribution Width 16.1 H Sodium Level 141 White Blood Count 8.2 Test 06/06/16 08:33 06/06/16 12:14 Bedside Glucose 114 122 Medications Medications Current Medications Aspirin (Halfprin) 81 mg DAILY PO Last administered on 06/06/16 09:45; Admin Dose 81 MG; Start 05/27/16 at 09:00 Clopidogrel Bisulfate (plaVIX) 75 mg DAILY PO Last administered on 06/06/16 09:46; Admin Dose 75 MG; Start 05/27/16 at 09:00 Ferrous Sulfate (Ferrous Sulfate (Ec)) 325 mg BID PO Last administered on 06/06 09:45; Admin Dose 325 MG; Start 05/27/16 at 09:00 Fluticasone Propionate (Flonase 0.05% Nasal) 1 spray BID NASAL Last administered on 06/06/16 09:45; Admin Dose 1 SPRAY; Start 05/27/16 at 09:00 Gabapentin (Neurontin) 300 mg TID PO Last administered on 06/06/16 13:33; Admin Dose 300 MG; Start 05/27/16 at 09:00 Guaifenesin/ Dextromethorphan (Robitussin Dm Liquid Cup) 10 ml Q4H PRN PO COUGH ; Start 05/26/16 at 21:30 Montelukast Sodium (Singulair) 10 mg HS PO Last administered on 06/05/16at 21: 07; Admin Dose 10 MG; Start 05/27/16 at 21:00 Oxycodone/ Acetaminophen (Endocet (10/ 325)) 1 tab Q6 PRN PO PAIN; Start 05/26 at 21:30 Salmeterol Xinafoate/ Fluticasone (Advair 500/50 Diskus) 1 inh BID INH Last administered on 06/06/16at 09:42; Admin Dose 1 INH; Start 05/27/16 at 09:00 Acetaminophen (Tylenol Tab) 650 mg Q4H PRN PO pain/fever; Start 05/26/16 at 21 :30 Ondansetron HCl (Zofran Inj) 4 mg Q4H PRN IV nausea Last administered on at 17:32; Admin Dose 4 MG; Start 05/26/16 at 21:30 Guaifenesin/ Dextromethorphan (Mucinex Dm) 1 tab BID PO Last administered on at 09:42; Admin Dose 1 TAB; Start 05/27/16 at 09:00 Fish Oil (Fish Oil) 1,000 mg DAILY PO Last administered on 06/06/16at 09:44; Admin Dose 1,000 MG; Start 05/27/16 at 09:00 Atorvastatin Calcium (Lipitor) 80 mg DAILY@21 PO Last administered on at 21:06; Admin Dose 80 MG; Start 05/27/16 at 00:00 Tramadol HCl (Ultram) 50 mg Q6H PRN PO PAIN Last administered on 06/02/16at 20: 40; Admin Dose 50 MG; Start 05/27/16 at 14:00 Miscellaneous Information 1 ea NOTE XX ; Start 05/27/16 at 18:30 Glucose (Glutose) 15 gm Q15M PRN PO DECREASED GLUCOSE; Start 05/27/16 at 18:30 Glucose (Glutose) 22.5 gm Q15M PRN PO DECREASED GLUCOSE; Start 05/27/16 at 18: 30 Dextrose (D50w Syringe) 25 ml Q15M PRN IV DECREASED GLUCOSE; Start 05/27/16 at 18:30 Dextrose (D50w Syringe) 50 ml Q15M PRN IV DECREASED GLUCOSE; Start 05/27/16 at 18:30 Glucagon (Glucagen) 1 mg Q15M PRN IM DECREASED GLUCOSE; Start 05/27/16 at 18: 30 Glucose (Glutose) 15 gm Q15M PRN BUCCAL DECREASED GLUCOSE; Start 05/27/16 at 18:30 IV Flush (NS 10 ml) 10 ml PRN PRN IV IV PROTOCOL; Start 05/28/16 at 17:30 Prednisone (Prednisone) 40 mg DAILY PO Last administered on 06/06/16at 09:46; Admin Dose 40 MG; Start 05/30/16 at 09:00 Morphine Sulfate (morphine) 1 mg Q4H PRN IV PAIN Last administered on at 20:49; Admin Dose 1 MG; Start 06/01/16 at 09:30 Docusate Sodium (Colace) 100 mg BID PO Last administered on 06/06/16 09:45; Admin Dose 100 MG; Start 06/01/16 at 21:00 Senna (Senokot) 1 tab BID PRN PO CONSTIPATION; Start 06/01/16 at 18:30 Bumetanide (Bumex) 2 mg DAILY IV Last administered on 06/06/16 09:43; Admin Dose 2 MG; Start 06/04/16 at 13:30; Stop 06/07/16 at 13:29 Metoprolol Tartrate (Lopressor) 50 mg TID PO Last administered on 06/06/16 13 :33; Admin Dose 50 MG; Start 06/05/16 at 13:00 Digoxin 0.125 mg 0.125 mg DAILY@13 PO Last administered on 06/06/16 13:34; Admin Dose 0.125 MG; Start 06/06/16 at 13:00; Status Future Hold Diltiazem HCl (Cardizem-D5W 125 Mg/125 ml Drip) 125 ml @ 5 mls/hr TITRATE IV Last administered on 06/05/16 19:43; Admin Dose 15 MLS/HR; Start 06/05/16 at 11:30 Acetazolamide (Diamox) 250 mg BID PO Last administered on 06/06/16 09:42; Admin Dose 250 MG; Start 06/05/16 at 14:30 Apixaban (Eliquis) 5 mg BID PO Last administered on 06/06/16 09:45; Admin Dose 5 MG; Start 06/05/16 at 21:00 Amiodarone HCl (Cordarone) 200 mg DAILY PO ; Start 06/07/16 at 09:00 PATT FARRELL MD Jun 06, 2016 16:36
[2016-06-06] MEDS: ATORVASTATIN 80 MG TAB PO SCH (20:39)
[2016-06-06] MEDS: MONTELUKAST 10 MG TAB PO SCH (20:39)
[2016-06-06] MEDS: morphine 2 MG INJ IV PRN (22:53)
[2016-06-07] VITALS (14 sets, daily range): BP systolic 110–151; BP diastolic 54–67; PULSE 51–118; RESP 18–20
[2016-06-07] MEDS: ALBUTEROL/IPRATROPIUM (NEB) 3 ML AMP HHN SCH ×4 (01:21→19:59)
[2016-06-07 05:54] LABS: HEMATOCRIT 28.8 % (42.0-52.0); HEMOGLOBIN 9.5 g/dl (14.0-18.0); LYMPHOCYTES # 0.9 10^3/ul (0.8-2.9); LYMPHOCYTES % 9.5 % (15.0-51.0); MEAN CORPUSCULAR HEMOGLOBIN 32.4 pg (29.0-33.0); MEAN CORPUSCULAR VOLUME 98.1 fl (82.0-101.0); MEAN PLATELET VOLUME 8.5 fl (7.4-10.4); MONOCYTE # 0.6 10^3/ul (0.3-0.9); MONOCYTES % 6.4 % (0.0-11.0); NEUTROPHIL # 7.5 10^3/ul (1.6-7.5); NEUTROPHILS % 84.1 % (39.0-77.0); PLATELET COUNT 255 10^3/UL (140-440); RED BLOOD COUNT 2.93 10^6/ul (4.70-6.10); RED CELL DISTRIBUTION WIDTH 15.7 % (11.5-14.5)
[2016-06-07 06:00] LABS: ALBUMIN 3.2 g/dl (3.3-4.9); POTASSIUM 3.5 mmol/L (3.5-5.1)
[2016-06-07 06:02] LABS: BILIRUBIN,INDIRECT 0.6 mg/dl (0-1.1); BILIRUBIN,TOTAL 0.6 mg/dl (0.2-1.3); CREATININE 1.22 mg/dl (0.61-1.24)
[2016-06-07 06:03] LABS: ALBUMIN/GLOBULIN RATIO 0.94; CALCIUM 8.1 mg/dl (8.4-10.2); TOTAL PROTEIN 6.6 g/dl (6.1-8.1)
[2016-06-07 06:05] LABS: CONDITION 1; LH ANALYZER COMMENTS 1
[2016-06-07 06:06] LABS: MAGNESIUM 2.2 mg/dl (1.7-2.5); PHOSPHORUS 3.4 mg/dl (2.5-4.9)
[2016-06-07] MEDS: INSULIN ASPART [NOVOLOG] 3 ML PEN SC SCH ×4 (07:55→22:00)
[2016-06-07] MEDS: predniSONE 20 MG TAB PO SCH (08:33)
[2016-06-07] MEDS: GUAIFENESIN/DM (SR) TAB PO SCH ×2 (08:33→21:55)
[2016-06-07] MEDS: FISH OIL 1,000 MG CAP PO SCH (08:33)
[2016-06-07] MEDS: DOCUSATE SODIUM 100 MG CAP PO SCH ×2 (08:33→21:55)
[2016-06-07] MEDS: METOPROLOL 50 MG TAB PO SCH ×3 (08:34→21:00)
[2016-06-07] MEDS: AMIODARONE 200 MG TAB PO SCH (08:34)
[2016-06-07] MEDS: ASPIRIN (EC) 81 MG TAB PO SCH (08:34)
[2016-06-07] MEDS: FERROUS SULFATE (EC) 325 MG TAB PO SCH ×2 (08:34→21:55)
[2016-06-07] MEDS: APIXABAN 5 MG TABLET PO SCH (08:35)
[2016-06-07] MEDS: GABAPENTIN 300 MG CAP PO SCH ×3 (08:35→21:54)
[2016-06-07] MEDS: CLOPIDOGREL 75 MG TAB PO SCH (08:35)
[2016-06-07] MEDS: SALMETEROL/FLUTICASONE 500/50 INHA INH SCH ×2 (08:35→21:53)
[2016-06-07] MEDS: FLUTICASONE 0.05% 16 GM NAS SPRAY NASAL SCH ×2 (08:35→21:53)
[2016-06-07] MEDS ORDERED: POTASSIUM CHLORIDE (SR) 20 MEQ TAB PO STA (12:56)
[2016-06-07] MEDS ORDERED: FUROSEMIDE 40 MG INJ IV ONE (13:00)
--- NOTE | 2016-06-07 13:06 | PN ---
Date/Time of Note Date/Time of Note DATE: 06/07/16 TIME: 12:38 Assessment/Plan VTE Prophylaxis VTE Prophylaxis Intervention: SCD's Lines/Catheters IV Catheter Type (from Nrsg): PICC Line Central line still needed: Yes (for IV access ) Urinary Cath still in place: Yes Reason Cath still needed: other (indicate) (monitor UOP ) Assessment/Plan Assessment/Plan 80 yo male with: 1. NSTEMI, patient s/p TAVR and with cardiomyopathy with troponin picked up at 13, S/p PTCA with 1 stent to circ. s/p Cardioversion for Afib 3 days ago and back in A fib 2 days ago and converted back to SR last night while on Amio and after a 30 sec pause ... Echo with EF 30% On 3L NC and being diuresed Continue ASA and Plavix, BBlock 2. Atrial fibrillation/Atrial Flutter, back in SR overnight while on Amio and after 30 sec pause F/u cardiology recommendations, will be holding Eliquis and EP eval with Dr White as per Dr Luis patient at least needs BiV pacer. Continue Amiodarone, Lopressor. 3. COPD, O2 dependent: on 3L NC currently and BiPAP prn Continue Prednisone to 40 daily for now and will taper further slowly back to outpatient dosing. Nebs rx , Advair and Spiriva Discussed with Pulmonology, Bicarb close to baseline at 35, pH wnl so no further recommendations at this time 4. JOE on CKD: Appreciate Dr Cordero's recommendations, Diuretics on hold for now, Monitor Renal function, better today. Electrolytes stable 5. S/p accidental fall weekend prior to admission with RLE Hematoma and RUE ecchymosis and right rib fractures Pain control with Percocet prn and Tramadol prn Hb stable and CT right LE noted. Continue to monitor 6. Acute on chronic Anemia with hematomas and blood loss: s/p 2 units pRBC last week and stable Hb since then Monitor h/h 7. Chronic back pain with acute component now with rib fractures: Percocet and tramadol prn 8. Hypertension: Currently low BP so holding Diovan 9. Congestive heart failure, systolic dysfunction EF 30 % on echo. S/p episode of volume overload and respiratory distress requiring BIPAP, Much less peripheral edema but pulmonary edema noted Diuresis on hold. 10. Temporal arteritis. The patient is already on prednisone. 11. Previous history of transient ischemic attack. Patient's mental status is stable and at baseline. Monitor Prophylaxis: SCDs as tolerated, PPI for GI ppx while on steroids especially Disposition: On Tele, back and forth SR and A fib. Diuresis on hold for now. Follow up Nephro recommendations. Subjective 24 Hr Interval Summary Free Text/Dictation Patient back and forth in A fib, flutter Per Cardio will need BiV pacer per cardiology Otherwise doing Ok and remains stable Exam/Review of Systems Vital Signs Vitals Vital Signs Date Time Temp Pulse Resp B/P Pulse Ox O2 Delivery O2 Flow Rate FiO2 06/07/16 12:19 58 06/07/16 10:53 98.0 18 110/62 95 06/07/16 08:41 3.0 06/07/16 08:41 Nasal Cannula Intake and Output 06/06/16 06/06/16 06/07/16 15:00 23:00 07:00 Intake Total 850 ml 480 ml Output Total 1050 ml 600 ml Balance -200 ml -120 ml Exam Constitutional: alert, frail, oriented Cardiovascular: nl pulses, regular rate and rhythm Gastrointestinal: non-tender, soft Musculoskeletal: other (echymosis and hematomas are improving ) Extremities: normal pulses, other (no edema, clubbign or cyanosis ) 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, nl mental status, nl speech, other ( generalised weakness improving ) Results Result Diagram: 06/07/16 0507 06/07/16 0507 Results 24 hrs Laboratory Tests Test 06/06/16 17:39 06/06/16 18:28 06/06/16 20:54 06/07/16 04:14 Bedside Glucose 163 193 135 Lab Scanned Report LAB Test 06/07/16 05:07 06/07/16 08:30 06/07/16 11:47 Alanine Aminotransferase (ALT/SGPT) 57 Albumin 3.2 L Albumin/Globulin Ratio 0.94 Alkaline Phosphatase 55 Anion Gap 13 Aspartate Amino Transf (AST/SGOT) 33 B-Type Natriuretic Peptide 35411 H Basophils # 0.0 Basophils % 0.0 Blood Morphology Comment Blood Urea Nitrogen 41 H Calcium Level 8.1 L Carbon Dioxide Level 39 H Chloride Level 92 L Creatinine 1.22 Digoxin Level 1.0 Direct Bilirubin 0.00 Eosinophils # 0.0 Eosinophils % 0.0 Globulin 3.40 H Glucose Level 112 Hematocrit 28.8 L Hemoglobin 9.5 L Indirect Bilirubin 0.6 Lymphocytes # 0.9 Lymphocytes % 9.5 L Magnesium Level 2.2 Mean Corpuscular Hemoglobin 32.4 Mean Corpuscular Hemoglobin Concent 33.0 Mean Corpuscular Volume 98.1 Mean Platelet Volume 8.5 Monocytes # 0.6 Monocytes % 6.4 Neutrophils # 7.5 Neutrophils % 84.1 H Nucleated Red Blood Cells # 0.0 Nucleated Red Blood Cells % 0.0 Phosphorus Level 3.4 Platelet Count 255 Potassium Level 3.5 Red Blood Count 2.93 L Red Cell Distribution Width 15.7 H Sodium Level 140 Total Bilirubin 0.6 Total Protein 6.6 White Blood Count 9.0 Bedside Glucose 96 148 Medications Medications Current Medications Aspirin (Halfprin) 81 mg DAILY PO Last administered on 06/07/16 08:34; Admin Dose 81 MG; Start 05/27/16 at 09:00 Clopidogrel Bisulfate (plaVIX) 75 mg DAILY PO Last administered on 06/07/16 08:35; Admin Dose 75 MG; Start 05/27/16 at 09:00 Ferrous Sulfate (Ferrous Sulfate (Ec)) 325 mg BID PO Last administered on 06/07 08:34; Admin Dose 325 MG; Start 05/27/16 at 09:00 Fluticasone Propionate (Flonase 0.05% Nasal) 1 spray BID NASAL Last administered on 06/07/16 08:35; Admin Dose 1 SPRAY; Start 05/27/16 at 09:00 Gabapentin (Neurontin) 300 mg TID PO Last administered on 06/07/16 08:35; Admin Dose 300 MG; Start 05/27/16 at 09:00 Guaifenesin/ Dextromethorphan (Robitussin Dm Liquid Cup) 10 ml Q4H PRN PO COUGH ; Start 05/26/16 at 21:30 Montelukast Sodium (Singulair) 10 mg HS PO Last administered on 06/06/16at 20: 39; Admin Dose 10 MG; Start 05/27/16 at 21:00 Oxycodone/ Acetaminophen (Endocet (10/ 325)) 1 tab Q6 PRN PO PAIN; Start 05/26 at 21:30 Salmeterol Xinafoate/ Fluticasone (Advair 500/50 Diskus) 1 inh BID INH Last administered on 06/07/16at 08:35; Admin Dose 1 INH; Start 05/27/16 at 09:00 Acetaminophen (Tylenol Tab) 650 mg Q4H PRN PO pain/fever; Start 05/26/16 at 21 :30 Ondansetron HCl (Zofran Inj) 4 mg Q4H PRN IV nausea Last administered on at 17:32; Admin Dose 4 MG; Start 05/26/16 at 21:30 Guaifenesin/ Dextromethorphan (Mucinex Dm) 1 tab BID PO Last administered on at 08:33; Admin Dose 1 TAB; Start 05/27/16 at 09:00 Fish Oil (Fish Oil) 1,000 mg DAILY PO Last administered on 06/07/16at 08:33; Admin Dose 1,000 MG; Start 05/27/16 at 09:00 Atorvastatin Calcium (Lipitor) 80 mg DAILY@21 PO Last administered on at 20:39; Admin Dose 80 MG; Start 05/27/16 at 00:00 Tramadol HCl (Ultram) 50 mg Q6H PRN PO PAIN Last administered on 06/02/16at 20: 40; Admin Dose 50 MG; Start 05/27/16 at 14:00 Miscellaneous Information 1 ea NOTE XX ; Start 05/27/16 at 18:30 Glucose (Glutose) 15 gm Q15M PRN PO DECREASED GLUCOSE; Start 05/27/16 at 18:30 Glucose (Glutose) 22.5 gm Q15M PRN PO DECREASED GLUCOSE; Start 05/27/16 at 18: 30 Dextrose (D50w Syringe) 25 ml Q15M PRN IV DECREASED GLUCOSE; Start 05/27/16 at 18:30 Dextrose (D50w Syringe) 50 ml Q15M PRN IV DECREASED GLUCOSE; Start 05/27/16 at 18:30 Glucagon (Glucagen) 1 mg Q15M PRN IM DECREASED GLUCOSE; Start 05/27/16 at 18: 30 Glucose (Glutose) 15 gm Q15M PRN BUCCAL DECREASED GLUCOSE; Start 05/27/16 at 18:30 IV Flush (NS 10 ml) 10 ml PRN PRN IV IV PROTOCOL; Start 05/28/16 at 17:30 Prednisone (Prednisone) 40 mg DAILY PO Last administered on 06/07/16 08:33; Admin Dose 40 MG; Start 05/30/16 at 09:00 Morphine Sulfate (morphine) 1 mg Q4H PRN IV PAIN Last administered on 22:53; Admin Dose 1 MG; Start 06/01/16 at 09:30 Docusate Sodium (Colace) 100 mg BID PO Last administered on 06/07/16 08:33; Admin Dose 100 MG; Start 06/01/16 at 21:00 Senna (Senokot) 1 tab BID PRN PO CONSTIPATION; Start 06/01/16 at 18:30 Metoprolol Tartrate (Lopressor) 50 mg TID PO Last administered on 06/07/16 08 :34; Admin Dose 50 MG; Start 06/05/16 at 13:00 Digoxin 0.125 mg 0.125 mg DAILY@13 PO Last administered on 06/06/16 13:34; Admin Dose 0.125 MG; Start 06/06/16 at 13:00; Status Future Hold Diltiazem HCl (Cardizem-D5W 125 Mg/125 ml Drip) 125 ml @ 5 mls/hr TITRATE IV Last administered on 06/05/16 19:43; Admin Dose 15 MLS/HR; Start 06/05/16 at 11:30 Apixaban (Eliquis) 5 mg BID PO Last administered on 06/07/16 08:35; Admin Dose 5 MG; Start 06/05/16 at 21:00 Amiodarone HCl (Cordarone) 200 mg DAILY PO Last administered on 06/07/16 08: 34; Admin Dose 200 MG; Start 06/07/16 at 09:00 RICHIE SWEET Jun 07, 2016 13:06
[2016-06-07] MEDS: GUAIFENESIN/DM 5ML CUP PO PRN (18:42)
[2016-06-07] MEDS: ATORVASTATIN 80 MG TAB PO SCH (21:54)
[2016-06-07] MEDS: MONTELUKAST 10 MG TAB PO SCH (21:55)
[2016-06-08] VITALS (12 sets, daily range): BP systolic 107–129; BP diastolic 57–60; PULSE 55–60; RESP 18–20
[2016-06-08] MEDS: ALBUTEROL/IPRATROPIUM (NEB) 3 ML AMP HHN SCH ×4 (01:20→19:23)
[2016-06-08] MEDS: GUAIFENESIN/DM 5ML CUP PO PRN ×2 (04:29→21:07)
[2016-06-08 06:14] LABS: BASOPHILS % 0.1 % (0.0-2.0); EOSINOPHILS % 0.1 % (0.0-7.0); HEMATOCRIT 29.3 % (42.0-52.0); HEMOGLOBIN 9.8 g/dl (14.0-18.0); LYMPHOCYTES % 10.7 % (15.0-51.0); MEAN CORPUSCULAR HEMOGLOBIN 32.6 pg (29.0-33.0); MEAN CORPUSCULAR HGB CONC 33.6 g/dl (32.0-37.0); MEAN CORPUSCULAR VOLUME 96.8 fl (82.0-101.0); MEAN PLATELET VOLUME 8.4 fl (7.4-10.4); MONOCYTE # 0.5 10^3/ul (0.3-0.9); MONOCYTES % 5.4 % (0.0-11.0); NEUTROPHIL # 7.8 10^3/ul (1.6-7.5); NEUTROPHILS % 83.7 % (39.0-77.0); PLATELET COUNT 265 10^3/UL (140-440); RED BLOOD COUNT 3.02 10^6/ul (4.70-6.10); RED CELL DISTRIBUTION WIDTH 16.3 % (11.5-14.5); UNCORRECTED WBC 9.3 10^3/ul (4.8-10.8); WHITE BLOOD COUNT 9.3 10^3/ul (4.8-10.8)
[2016-06-08 06:21] LABS: INR 1.25; PROTIME 15.8 Sec (12.2-14.2); PT RATIO 1.2
[2016-06-08 06:26] LABS: CONDITION 1; LH ANALYZER COMMENTS 1
[2016-06-08 06:43] LABS: ALBUMIN 3.1 g/dl (3.3-4.9)
[2016-06-08 06:44] LABS: POTASSIUM 3.5 mmol/L (3.5-5.1)
[2016-06-08 06:46] LABS: ALBUMIN/GLOBULIN RATIO 0.88; BILIRUBIN,INDIRECT 0.6 mg/dl (0-1.1); BILIRUBIN,TOTAL 0.6 mg/dl (0.2-1.3); CREATININE 1.05 mg/dl (0.61-1.24); TOTAL PROTEIN 6.6 g/dl (6.1-8.1)
[2016-06-08 06:47] LABS: CALCIUM 8.1 mg/dl (8.4-10.2); MAGNESIUM 2.2 mg/dl (1.7-2.5)
[2016-06-08] MEDS: INSULIN ASPART [NOVOLOG] 3 ML PEN SC SCH ×4 (07:55→21:22)
[2016-06-08] MEDS: FLUTICASONE 0.05% 16 GM NAS SPRAY NASAL SCH ×2 (08:59→21:04)
[2016-06-08] MEDS: SALMETEROL/FLUTICASONE 500/50 INHA INH SCH ×2 (08:59→21:04)
[2016-06-08] MEDS: GUAIFENESIN/DM (SR) TAB PO SCH ×2 (08:59→16:42)
[2016-06-08] MEDS: CLOPIDOGREL 75 MG TAB PO SCH (09:00)
[2016-06-08] MEDS: ASPIRIN (EC) 81 MG TAB PO SCH (09:01)
[2016-06-08] MEDS: predniSONE 20 MG TAB PO SCH (09:01)
[2016-06-08] MEDS: METOPROLOL 50 MG TAB PO SCH ×3 (09:01→21:00)
[2016-06-08] MEDS: FISH OIL 1,000 MG CAP PO SCH (09:02)
[2016-06-08] MEDS: AMIODARONE 200 MG TAB PO SCH (09:02)
[2016-06-08] MEDS: DOCUSATE SODIUM 100 MG CAP PO SCH ×2 (09:02→21:02)
[2016-06-08] MEDS: GABAPENTIN 300 MG CAP PO SCH ×3 (09:02→21:02)
[2016-06-08] MEDS: FERROUS SULFATE (EC) 325 MG TAB PO SCH ×2 (09:07→21:01)
[2016-06-08] MEDS: morphine 2 MG INJ IV PRN ×2 (09:37→16:42)
--- NOTE | 2016-06-08 09:41 | PN ---
DATE: 06/07/2016 CARDIOLOGY FOLLOWUP SUBJECTIVE: The patient remains in sinus rhythm with ____ of atrial flutter. No more pauses. Romeo es chest pain. Discussed with the as well. Discussed with the ____. Discussed with _ ___. MEDICATIONS: Reviewed. PHYSICAL EXAMINATION: VITAL SIGNS: Temperature 98, heart rate of 60, blood pressure 110/____, respiration rate of 18, sat urating 95%. HEENT: Normocephalic, atraumatic. Pupils are equal. GENERAL: Cachectic, thin gentleman. CARDIOVASCULAR: Regular rate and rhythm. PULMONARY: Diffuse rhonchi. GASTROINTESTINAL: Soft, nontender. EXTREMITIES: With trivial edema. NEUROLOGIC: Awake, responds appropriately. LABORATORY: Digoxin level is 1. Sodium 140, potassium 3.5, BUN of 41, creatinine 1.22, glucose 112 . ProBNP of 17,900. WBC of 9, hemoglobin 9.5, platelets of 255. ASSESSMENT AND PLAN: 1. Congestive heart failure. 2. Atrial flutter fibrillation with tachybrady syndrome and episodes of long pauses of more than 30 seconds. 3. Status post renal failure. 4. Coronary artery disease, status post myocardial infarction. 5. Status post percutaneous coronary intervention. RECOMMENDATIONS: Digoxin is on hold, amiodarone has been cut down to a very low dose. I will give t he patient a dose of Lasix today. Potassium to be replaced too. ____ has been counseled regard ing evaluation for possible biventricular pacemaker ICD placement. Dictated By: HUMBERTO BAXTER MD AV/LATISHA Conf#: [id number] DID#: [id number] CC: RICHIE SWEET MD;*End*
--- NOTE | 2016-06-08 10:02 | PN ---
DATE: 06/06/2016 CARDIOLOGY FOLLOWUP SUBJECTIVE: The patient had episodes of long ventricular pauses up to 30 seconds, apparently had pa ssed out and was unresponsive at that time. Nursing staff arrived and the patient woke up. The pat ient denies any chest pain or pressure. Denies any palpitations to me. He has converted back to si nus rhythm and currently in sinus rhythm. MEDICATIONS: Reviewed. PHYSICAL EXAMINATION: VITAL SIGNS: Temperature 97.6, heart rate of 75, blood pressure 129/60, respiratory rate of 22, sat urating 100%. HEENT: Normocephalic, atraumatic. Pale elderly gentleman. Pupils are equal. CARDIOVASCULAR: Regular rate and rhythm. PULMONARY: Anteriorly mild rhonchi. GASTROINTESTINAL: Soft, nontender. EXTREMITIES: With positive edema. NEUROLOGIC: Awake, responds appropriately. PSYCHIATRIC: Appears to be calm and pleasant. IMAGING: Chest x-ray from yesterday showed congestive heart failure. LABORATORY DATA: Sodium 141, potassium 4.2, BUN of 41, creatinine 1.34, glucose of 125. ASSESSMENT AND PLAN: 1. [id number] myocardial infarction, status post PCI of the left circumflex artery. 2. Aortic stenosis, status post transcutaneous aortic valve replacement. 3. Cardiomyopathy, ejection fraction of 35%, abnormal EKG with left bundle branch block. 4. Paroxysmal atrial fibrillation and flutter with episodes of long pauses of 30 seconds, difficult to control the heart rate. 5. Chronic obstructive pulmonary disease, oxygen dependent 6. Renal insufficiency. Follow up with renal recommendation. RECOMMENDATIONS: I will hold digoxin. We will check a digoxin level tomorrow and adjust it accordi ngly. Diuresis as per renal recommendation. We will continue with the rest of his cardiac care. W ill discuss was initiated. Amiodarone will be continued at a lower dose of 200 daily for now. We will ask for EP consultation from to see if the patient is a candidate for an ablatio n. Otherwise, most likely given his clinical situation, he would need a pacemaker given his severe LV dysfunction and cardiomyopathy and his left bundle branch block. He will probably best benefit f rom a biventricular pacemaker. Will check electrolytes and adjust accordingly. Continue to closely monitor on telemetry. Dictated By: HUMBERTO BAXTER MD AV/LATISHA Conf#: [id number] DID#: [id number] CC: JOSEFINA MUNIZ DO;*EndCC*
--- NOTE | 2016-06-08 10:43 | CONS ---
Date/Time of Note Date/Time of Note DATE: 06/08/16 TIME: 10:42 Assessment/Plan Assessment/Plan Chief Complaint/Hosp Course - Acute Kidney Injury post Contrast - CKD ( ? HTN Nephrosclerosis ) - Acute MO - Hyperkalemia - ? Rhabdomyolysis - COPD - Hx of Temporal Arteritis - CAD/CHF PLAN: Off diuretics with renal back to baseline Restrict Fluids Monitor labs closely Remains Alkalotic Restart Diamox today monitor renal Problems: Consultation Date/Type/Reason Admit Date/Time May 26, 2016 at 19:17 Initial Consult Date 05/28/16 Type of Consultation: Nephrology Reason for Consultation Acute Kidney Injury 24 HR Interval Summary Constitutional: improved Exam/Review of Systems Vital Signs Vitals Vital Signs Date Time Temp Pulse Resp B/P Pulse Ox O2 Delivery O2 Flow Rate FiO2 06/08/16 08:32 60 20 97 Nasal Cannula 3.0 06/08/16 07:33 97.4 129/60 Intake and Output 06/07/16 06/07/16 06/08/16 15:00 23:00 07:00 Intake Total 850 ml 500 ml Output Total 1000 ml 600 ml Balance -150 ml -100 ml Exam Constitutional: alert, oriented Psych: no complaints Head: normocephalic Eyes: nl conjunctiva Respiratory: crackles/rales Cardiovascular: regular rate and rhythm, systolic murmur Gastrointestinal: soft Results Result Diagram: 06/08/16 0540 06/08/16 0540 Results 24 hrs Laboratory Tests Test 06/07/16 11:47 06/07/16 17:53 06/07/16 21:49 06/08/16 05:40 Bedside Glucose 148 186 198 Alanine Aminotransferase (ALT/SGPT) 54 Albumin 3.1 L Albumin/Globulin Ratio 0.88 Alkaline Phosphatase 46 Anion Gap 12 Aspartate Amino Transf (AST/SGOT) 34 B-Type Natriuretic Peptide 97473 H Basophils # 0.0 Basophils % 0.1 Blood Morphology Comment Blood Urea Nitrogen 38 H Calcium Level 8.1 L Carbon Dioxide Level 41 *H Chloride Level 93 L Creatinine 1.05 Direct Bilirubin 0.00 Eosinophils # 0.0 Eosinophils % 0.1 Globulin 3.50 H Glucose Level 115 Hematocrit 29.3 L Hemoglobin 9.8 L INR International Normalized Ratio 1.25 Indirect Bilirubin 0.6 Lymphocytes # 1.0 Lymphocytes % 10.7 L Magnesium Level 2.2 Mean Corpuscular Hemoglobin 32.6 Mean Corpuscular Hemoglobin Concent 33.6 Mean Corpuscular Volume 96.8 Mean Platelet Volume 8.4 Monocytes # 0.5 Monocytes % 5.4 Neutrophils # 7.8 H Neutrophils % 83.7 H Nucleated Red Blood Cells # 0.0 Nucleated Red Blood Cells % 0.0 Platelet Count 265 Potassium Level 3.5 Prothrombin Time 15.8 H Prothrombin Time Ratio 1.2 Red Blood Count 3.02 L Red Cell Distribution Width 16.3 H Sodium Level 142 Total Bilirubin 0.6 Total Protein 6.6 White Blood Count 9.3 Test 06/08/16 08:07 Bedside Glucose 100 Medications Medications Current Medications Aspirin (Halfprin) 81 mg DAILY PO Last administered on 06/08/16 09:01; Admin Dose 81 MG; Start 05/27/16 at 09:00 Clopidogrel Bisulfate (plaVIX) 75 mg DAILY PO Last administered on 06/08/16 09:00; Admin Dose 75 MG; Start 05/27/16 at 09:00 Ferrous Sulfate (Ferrous Sulfate (Ec)) 325 mg BID PO Last administered on 06/08 09:07; Admin Dose 325 MG; Start 05/27/16 at 09:00 Fluticasone Propionate (Flonase 0.05% Nasal) 1 spray BID NASAL Last administered on 06/08/16 08:59; Admin Dose 1 SPRAY; Start 05/27/16 at 09:00 Gabapentin (Neurontin) 300 mg TID PO Last administered on 06/08/16 09:02; Admin Dose 300 MG; Start 05/27/16 at 09:00 Guaifenesin/ Dextromethorphan (Robitussin Dm Liquid Cup) 10 ml Q4H PRN PO COUGH Last administered on 06/08/16 04:29; Admin Dose 10 ML; Start 05/26/16 at 21:30 Montelukast Sodium (Singulair) 10 mg HS PO Last administered on 06/07/16 21: 55; Admin Dose 10 MG; Start 05/27/16 at 21:00 Oxycodone/ Acetaminophen (Endocet (10/ 325)) 1 tab Q6 PRN PO PAIN; Start 05/26 at 21:30 Salmeterol Xinafoate/ Fluticasone (Advair 500/50 Diskus) 1 inh BID INH Last administered on 12/26/16at 08:59; Admin Dose 1 INH; Start 05/27/16 at 09:00 Acetaminophen (Tylenol Tab) 650 mg Q4H PRN PO pain/fever; Start 05/26/16 at 21 :30 Ondansetron HCl (Zofran Inj) 4 mg Q4H PRN IV nausea Last administered on at 17:32; Admin Dose 4 MG; Start 05/26/16 at 21:30 Guaifenesin/ Dextromethorphan (Mucinex Dm) 1 tab BID PO Last administered on at 08:59; Admin Dose 1 TAB; Start 05/27/16 at 09:00 Fish Oil (Fish Oil) 1,000 mg DAILY PO Last administered on 06/08/16at 09:02; Admin Dose 1,000 MG; Start 05/27/16 at 09:00 Atorvastatin Calcium (Lipitor) 80 mg DAILY@21 PO Last administered on at 21:54; Admin Dose 80 MG; Start 05/27/16 at 00:00 Tramadol HCl (Ultram) 50 mg Q6H PRN PO PAIN Last administered on 06/02/16at 20: 40; Admin Dose 50 MG; Start 05/27/16 at 14:00 Miscellaneous Information 1 ea NOTE XX ; Start 05/27/16 at 18:30 Glucose (Glutose) 15 gm Q15M PRN PO DECREASED GLUCOSE; Start 05/27/16 at 18:30 Glucose (Glutose) 22.5 gm Q15M PRN PO DECREASED GLUCOSE; Start 05/27/16 at 18: 30 Dextrose (D50w Syringe) 25 ml Q15M PRN IV DECREASED GLUCOSE; Start 05/27/16 at 18:30 Dextrose (D50w Syringe) 50 ml Q15M PRN IV DECREASED GLUCOSE; Start 05/27/16 at 18:30 Glucagon (Glucagen) 1 mg Q15M PRN IM DECREASED GLUCOSE; Start 05/27/16 at 18: 30 Glucose (Glutose) 15 gm Q15M PRN BUCCAL DECREASED GLUCOSE; Start 05/27/16 at 18:30 IV Flush (NS 10 ml) 10 ml PRN PRN IV IV PROTOCOL; Start 05/28/16 at 17:30 Prednisone (Prednisone) 40 mg DAILY PO Last administered on 06/08/16at 09:01; Admin Dose 40 MG; Start 05/30/16 at 09:00 Morphine Sulfate (morphine) 1 mg Q4H PRN IV PAIN Last administered on 09:37; Admin Dose 1 MG; Start 06/01/16 at 09:30 Docusate Sodium (Colace) 100 mg BID PO Last administered on 06/08/16 09:02; Admin Dose 100 MG; Start 06/01/16 at 21:00 Senna (Senokot) 1 tab BID PRN PO CONSTIPATION; Start 06/01/16 at 18:30 Metoprolol Tartrate (Lopressor) 50 mg TID PO Last administered on 06/08/16 09 :01; Admin Dose 50 MG; Start 06/05/16 at 13:00 Digoxin 0.125 mg 0.125 mg DAILY@13 PO Last administered on 06/06/16 13:34; Admin Dose 0.125 MG; Start 06/06/16 at 13:00; Status Future Hold Diltiazem HCl (Cardizem-D5W 125 Mg/125 ml Drip) 125 ml @ 5 mls/hr TITRATE IV Last administered on 06/05/16 19:43; Admin Dose 15 MLS/HR; Start 06/05/16 at 11:30 Apixaban (Eliquis) 5 mg BID PO Last administered on 06/07/16 08:35; Admin Dose 5 MG; Start 06/05/16 at 21:00; Status Future Hold Amiodarone HCl 200 mg 200 mg DAILY PO Last administered on 06/08/16 09:02; Admin Dose 200 MG; Start 06/07/16 at 09:00 Sodium Chloride (NS) 1,000 ml @ 100 mls/hr Q10H IV ; Start 06/08/16 at 23:00 Acetylcysteine (Nac) 600 mg BID PO ; Start 06/08/16 at 11:00 PATT FARRELL MD Jun 08, 2016 10:43
[2016-06-08] MEDS ORDERED: ACETAZOLAMIDE 250 MG TAB PO ONE (11:30)
[2016-06-08] MEDS: ACETYLCYSTEINE 600 MG CAP PO SCH ×2 (12:09→21:01)
--- NOTE | 2016-06-08 12:49 | PN ---
DATE: 06/08/2016 CARDIOLOGY FOLLOWUP SUBJECTIVE: Discussed with the staff. Rhythm strip was reviewed. The patient remains in sinus rhy thm. The patient remains in sinus rhythm. Severe left bundle branch block. MEDICATIONS: Reviewed as per medical reconciliation, personally reviewed. Discussed with a s well. PHYSICAL EXAMINATION: VITAL SIGNS: Temperature 97.4, heart rate of 60, blood pressure 120/60, respiratory rate of 20, sat urating 97%. HEENT: Normocephalic, atraumatic. Pupils are equal. CARDIOVASCULAR: Regular rate and rhythm, systolic murmur. PULMONARY: With diffuse rhonchi. GASTROINTESTINAL: Soft, nontender. EXTREMITIES: With trivial edema. NEUROLOGIC: Awake, responds appropriately. PSYCHIATRIC: Appears to be calm. LABORATORY: WBC of 9.3, hemoglobin 9.8, platelets 265. Sodium 142, potassium 3.5, CO2 of 41, BUN o f 38, creatinine 1.05, glucose 115, BUN 19,100. Albumin is 3.1. ASSESSMENT AND PLAN: 1. Status post non-ST elevation myocardial infarction, status post PCI with history of aortic steno sis, status post aortic valve replacement. 2. Severe cardiomyopathy, ejection fraction of 35%. 3. Abnormal EKG with left bundle branch. 4. Paroxysmal atrial fibrillation and flutter with episodes of long pauses up to 30 second and marlin ent being unresponsive at the time. 5. Severe COPD and pneumonia. 6. Renal insufficiency. RECOMMENDATIONS: Given his tachybrady syndrome and long pauses, the patient will need to have a pac emaker placed to prevent from recurrence of pauses as such that he has had. Also, it would give us more freedom to treat his tachycardia better. However, given his left bundle branch block and LV dy sfunction, the patient would need biventricular pacing. Different options discussed with the concha t. Again, given the fact that he has severe LV dysfunction and not expected to have a significant i mprovement with LV systolic function, it is felt that the patient would best benefit to get a bivent ricular ICD now that he is already getting a device anyway other than putting a biventricular on and having upgrade it in a few months to a biventricular ICD. Different options discussed with the pat ient and is at risk the procedure. Discussed with the patient including risk of infection, vascular complication, bleeding complication, PR, stroke, arrhythmia, , renal failure, etc. The patient has consented to procedure. Risks included infection, vascular complication, pneumothor ax, hemothorax, perforation, PR, anesthesia recomplications, bleeding, , etc. discussed with jhoana gutierrez. The patient's renal failure also discussed with the patient and family and consented. W e will try to schedule the patient for tomorrow. Increased risk of bleeding because of multiple ___ __ agents was also discussed with them. They say that they understand. Dictated By: HUMBERTO BAXTER MD AV/LATISHA Conf#: [id number] DID#: [id number] CC: RICHIE SWEET MD;*End*
--- NOTE | 2016-06-08 12:58 | PN ---
Date/Time of Note Date/Time of Note DATE: 06/08/16 TIME: 12:20 Assessment/Plan VTE Prophylaxis VTE Prophylaxis Intervention: other (eliquis on hold for procedure ) Lines/Catheters IV Catheter Type (from Nrsg): PICC Line Central line still needed: Yes (for IV access ) Urinary Cath still in place: Yes Reason Cath still needed: other (indicate) (monitor UOP and renal function) Assessment/Plan Assessment/Plan 80 yo male with: 1. NSTEMI, patient s/p TAVR and with cardiomyopathy with troponin picked up at 13, S/p PTCA with 1 stent to circ. s/p Cardioversion for Afib 3 days ago and back in A fib 2 days ago and converted back to SR last night while on Amio and after a 30 sec pause ... Echo with EF 30% On 3L NC, diuresis prn Continue ASA and Plavix, BBlock 2. Atrial fibrillation/Atrial Flutter, seems to be going back and forth in SR and atrial arrhythmias, appreciate Dr Luis's evaluation and recommendations. F/u cardiology recommendations today but so far holding [place] and Dr Luis patient at least needs BiV pacer and ideally BiV/ICD pacer Continue Amiodarone, Lopressor. 3. COPD, O2 dependent: on 3L NC currently and BiPAP prn Continue Prednisone to 40 daily for now and will taper further slowly back to outpatient dosing. Nebs rx , Advair and Spiriva Discussed with Pulmonology, Bicarb close to baseline at 35, pH wnl so no further recommendations at this time 4. JOE on CKD: much better with renal function back down to baseline today Appreciate Dr Cordero's recommendations, Diuretics on hold for now, Monitor Renal function, better today. Electrolytes stable 5. S/p accidental fall weekend prior to admission with RLE Hematoma and RUE ecchymosis and right rib fractures Pain control with Percocet prn and Tramadol prn Hb stable and CT right LE noted. Continue to monitor 6. Acute on chronic Anemia with hematomas and blood loss: s/p 2 units pRBC last week and stable Hb since then Monitor h/h 7. Chronic back pain with acute component now with rib fractures: Percocet and tramadol prn 8. Hypertension: Currently low BP so holding Diovan 9. Congestive heart failure, systolic dysfunction EF 30 % on echo. S/p episode of volume overload and respiratory distress requiring BIPAP, Much less peripheral edema and on 3L NC. Diuresis on hold due to renal function. 10. Temporal arteritis. The patient is already on prednisone. 11. Previous history of transient ischemic attack. Patient's mental status is stable and at baseline. Monitor Prophylaxis: SCDs as tolerated, PPI for GI ppx while on steroids especially Disposition: On Tele, back and forth SR and A fib. Diuresis on hold for now. Plans for BiV pacer +/- ICD tomorrow. Follow up Nephro recommendations. Subjective 24 Hr Interval Summary Free Text/Dictation Patient remains stable and per Dr Luis will need a BiV pacer at least +/- ICD , plan for tomorrow procedure Otherwise renal function back to baseline Respiratory status stable Exam/Review of Systems Vital Signs Vitals Vital Signs Date Time Temp Pulse Resp B/P Pulse Ox O2 Delivery O2 Flow Rate FiO2 06/08/16 12:04 98.0 62 20 107/57 94 06/08/16 08:32 Nasal Cannula 3.0 Intake and Output 06/07/16 06/07/16 06/08/16 15:00 23:00 07:00 Intake Total 850 ml 500 ml Output Total 1000 ml 600 ml Balance -150 ml -100 ml Exam Constitutional: alert, frail, oriented Respiratory: diminished breath sounds (bases ), normal air movement Cardiovascular: irregular rhythm (in and out of A fib/flutter ), nl pulses Gastrointestinal: non-tender, soft Musculoskeletal: other (RLE hematoma with dressing on site, ecchymosis x 4 ext ) Extremities: normal pulses 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: DIRECTOR FRAUD II-XII intact, nl mental status, nl speech, other ( generalised weakness ) Skin: ecchymosis (all 4 ext stable ) Results Result Diagram: 06/08/16 0540 06/08/16 0540 Results 24 hrs Laboratory Tests Test 06/07/16 17:53 06/07/16 21:49 06/08/16 05:40 06/08/16 08:07 Bedside Glucose 186 198 100 Alanine Aminotransferase (ALT/SGPT) 54 Albumin 3.1 L Albumin/Globulin Ratio 0.88 Alkaline Phosphatase 46 Anion Gap 12 Aspartate Amino Transf (AST/SGOT) 34 B-Type Natriuretic Peptide 83736 H Basophils # 0.0 Basophils % 0.1 Blood Morphology Comment Blood Urea Nitrogen 38 H Calcium Level 8.1 L Carbon Dioxide Level 41 *H Chloride Level 93 L Creatinine 1.05 Direct Bilirubin 0.00 Eosinophils # 0.0 Eosinophils % 0.1 Globulin 3.50 H Glucose Level 115 Hematocrit 29.3 L Hemoglobin 9.8 L INR International Normalized Ratio 1.25 Indirect Bilirubin 0.6 Lymphocytes # 1.0 Lymphocytes % 10.7 L Magnesium Level 2.2 Mean Corpuscular Hemoglobin 32.6 Mean Corpuscular Hemoglobin Concent 33.6 Mean Corpuscular Volume 96.8 Mean Platelet Volume 8.4 Monocytes # 0.5 Monocytes % 5.4 Neutrophils # 7.8 H Neutrophils % 83.7 H Nucleated Red Blood Cells # 0.0 Nucleated Red Blood Cells % 0.0 Platelet Count 265 Potassium Level 3.5 Prothrombin Time 15.8 H Prothrombin Time Ratio 1.2 Red Blood Count 3.02 L Red Cell Distribution Width 16.3 H Sodium Level 142 Total Bilirubin 0.6 Total Protein 6.6 White Blood Count 9.3 Test 06/08/16 11:05 06/08/16 11:56 Digoxin Level 0.7 L Bedside Glucose 183 Medications Medications Current Medications Aspirin (Halfprin) 81 mg DAILY PO Last administered on 06/08/16 09:01; Admin Dose 81 MG; Start 05/27/16 at 09:00 Clopidogrel Bisulfate (plaVIX) 75 mg DAILY PO Last administered on 06/08/16 09:00; Admin Dose 75 MG; Start 05/27/16 at 09:00 Ferrous Sulfate (Ferrous Sulfate (Ec)) 325 mg BID PO Last administered on 06/08 09:07; Admin Dose 325 MG; Start 05/27/16 at 09:00 Fluticasone Propionate (Flonase 0.05% Nasal) 1 spray BID NASAL Last administered on 06/08/16 08:59; Admin Dose 1 SPRAY; Start 05/27/16 at 09:00 Gabapentin (Neurontin) 300 mg TID PO Last administered on 06/08/16 09:02; Admin Dose 300 MG; Start 05/27/16 at 09:00 Guaifenesin/ Dextromethorphan (Robitussin Dm Liquid Cup) 10 ml Q4H PRN PO COUGH Last administered on 06/08/16at 04:29; Admin Dose 10 ML; Start 05/26/16 at 21:30 Montelukast Sodium (Singulair) 10 mg HS PO Last administered on 06/07/16at 21: 55; Admin Dose 10 MG; Start 05/27/16 at 21:00 Oxycodone/ Acetaminophen (Endocet (10/ 325)) 1 tab Q6 PRN PO PAIN; Start 05/26 at 21:30 Salmeterol Xinafoate/ Fluticasone (Advair 500/50 Diskus) 1 inh BID INH Last administered on 06/08/16at 08:59; Admin Dose 1 INH; Start 05/27/16 at 09:00 Acetaminophen (Tylenol Tab) 650 mg Q4H PRN PO pain/fever; Start 05/26/16 at 21 :30 Ondansetron HCl (Zofran Inj) 4 mg Q4H PRN IV nausea Last administered on at 17:32; Admin Dose 4 MG; Start 05/26/16 at 21:30 Guaifenesin/ Dextromethorphan (Mucinex Dm) 1 tab BID PO Last administered on at 08:59; Admin Dose 1 TAB; Start 05/27/16 at 09:00 Fish Oil (Fish Oil) 1,000 mg DAILY PO Last administered on 06/08/16at 09:02; Admin Dose 1,000 MG; Start 05/27/16 at 09:00 Atorvastatin Calcium (Lipitor) 80 mg DAILY@21 PO Last administered on at 21:54; Admin Dose 80 MG; Start 05/27/16 at 00:00 Tramadol HCl (Ultram) 50 mg Q6H PRN PO PAIN Last administered on 06/02/16at 20: 40; Admin Dose 50 MG; Start 05/27/16 at 14:00 Miscellaneous Information 1 ea NOTE XX ; Start 05/27/16 at 18:30 Glucose (Glutose) 15 gm Q15M PRN PO DECREASED GLUCOSE; Start 05/27/16 at 18:30 Glucose (Glutose) 22.5 gm Q15M PRN PO DECREASED GLUCOSE; Start 05/27/16 at 18: 30 Dextrose (D50w Syringe) 25 ml Q15M PRN IV DECREASED GLUCOSE; Start 05/27/16 at 18:30 Dextrose (D50w Syringe) 50 ml Q15M PRN IV DECREASED GLUCOSE; Start 05/27/16 at 18:30 Glucagon (Glucagen) 1 mg Q15M PRN IM DECREASED GLUCOSE; Start 05/27/16 at 18: 30 Glucose (Glutose) 15 gm Q15M PRN BUCCAL DECREASED GLUCOSE; Start 05/27/16 at 18:30 IV Flush (NS 10 ml) 10 ml PRN PRN IV IV PROTOCOL; Start 05/28/16 at 17:30 Prednisone (Prednisone) 40 mg DAILY PO Last administered on 06/08/16at 09:01; Admin Dose 40 MG; Start 05/30/16 at 09:00 Morphine Sulfate (morphine) 1 mg Q4H PRN IV PAIN Last administered on at 09:37; Admin Dose 1 MG; Start 06/01/16 at 09:30 Docusate Sodium (Colace) 100 mg BID PO Last administered on 06/08/16at 09:02; Admin Dose 100 MG; Start 06/01/16 at 21:00 Senna (Senokot) 1 tab BID PRN PO CONSTIPATION; Start 06/01/16 at 18:30 Metoprolol Tartrate (Lopressor) 50 mg TID PO Last administered on 06/08/16at 09 :01; Admin Dose 50 MG; Start 06/05/16 at 13:00 Digoxin 0.125 mg 0.125 mg DAILY@13 PO Last administered on 06/06/16at 13:34; Admin Dose 0.125 MG; Start 06/06/16 at 13:00; Status Future Hold Diltiazem HCl (Cardizem-D5W 125 Mg/125 ml Drip) 125 ml @ 5 mls/hr TITRATE IV Last administered on 06/05/16at 19:43; Admin Dose 15 MLS/HR; Start 06/05/16 at 11:30 Apixaban (Eliquis) 5 mg BID PO Last administered on 06/07/16at 08:35; Admin Dose 5 MG; Start 06/05/16 at 21:00; Status Future Hold Amiodarone HCl 200 mg 200 mg DAILY PO Last administered on 06/08/16at 09:02; Admin Dose 200 MG; Start 06/07/16 at 09:00 Sodium Chloride (NS) 1,000 ml @ 100 mls/hr Q10H IV ; Start 06/08/16 at 23:00 Acetylcysteine (Nac) 600 mg BID PO Last administered on 06/08/16at 12:09; Admin Dose 600 MG; Start 06/08/16 at 11:00 RICHIE SWEET Jun 08, 2016 12:51
[2016-06-08] MEDS: ATORVASTATIN 80 MG TAB PO SCH (21:01)
[2016-06-08] MEDS: MONTELUKAST 10 MG TAB PO SCH (21:01)
[2016-06-08] MEDS: SOD CHLORIDE 0.9% 1,000 ML IV SCH (23:34)
[2016-06-09] VITALS (13 sets, daily range): BP systolic 103–145; BP diastolic 53–76; PULSE 48–79; RESP 17–22
[2016-06-09] MEDS: ALBUTEROL/IPRATROPIUM (NEB) 3 ML AMP HHN SCH ×4 (01:58→20:02)
[2016-06-09] MEDS: GUAIFENESIN/DM 5ML CUP PO PRN ×2 (02:33→17:30)
[2016-06-09 06:47] LABS: ALBUMIN 2.9 g/dl (3.3-4.9)
[2016-06-09 06:48] LABS: POTASSIUM 3.2 mmol/L (3.5-5.1)
[2016-06-09 06:50] LABS: ALBUMIN/GLOBULIN RATIO 0.87; BILIRUBIN,INDIRECT 0.7 mg/dl (0-1.1); BILIRUBIN,TOTAL 0.7 mg/dl (0.2-1.3); CREATININE 1.01 mg/dl (0.61-1.24); TOTAL PROTEIN 6.2 g/dl (6.1-8.1)
[2016-06-09 06:51] LABS: MAGNESIUM 2.1 mg/dl (1.7-2.5)
[2016-06-09 06:57] LABS: INR 1.17; PT RATIO 1.2
[2016-06-09 06:59] LABS: HEMATOCRIT 29.2 % (42.0-52.0); HEMOGLOBIN 9.7 g/dl (14.0-18.0); LYMPHOCYTES # 1.3 10^3/ul (0.8-2.9); LYMPHOCYTES % 6.1 % (15.0-51.0); MEAN CORPUSCULAR HEMOGLOBIN 32.7 pg (29.0-33.0); MEAN CORPUSCULAR HGB CONC 33.3 g/dl (32.0-37.0); MEAN CORPUSCULAR VOLUME 98.4 fl (82.0-101.0); MEAN PLATELET VOLUME 8.9 fl (7.4-10.4); MONOCYTES % 0.2 % (0.0-11.0); NEUTROPHIL # 19.3 10^3/ul (1.6-7.5); NEUTROPHILS % 93.7 % (39.0-77.0); PLATELET COUNT 246 10^3/UL (140-440); RED BLOOD COUNT 2.97 10^6/ul (4.70-6.10); RED CELL DISTRIBUTION WIDTH 15.7 % (11.5-14.5); UNCORRECTED WBC 20.6 10^3/ul (4.8-10.8); WHITE BLOOD COUNT 20.6 10^3/ul (4.8-10.8)
[2016-06-09 07:36] LABS: CONDITION 1; LH ANALYZER COMMENTS 1; SUSPECT 1
[2016-06-09] MEDS: INSULIN ASPART [NOVOLOG] 3 ML PEN SC SCH ×4 (07:55→21:00)
[2016-06-09] MEDS ORDERED: POTASSIUM CHLORIDE (SR) 20 MEQ TAB PO STA (08:35)
[2016-06-09] MEDS: FERROUS SULFATE (EC) 325 MG TAB PO SCH ×2 (09:00→20:32)
[2016-06-09] MEDS: METOPROLOL 50 MG TAB PO SCH ×3 (09:00→21:00)
[2016-06-09] MEDS: AMIODARONE 200 MG TAB PO SCH (09:00)
[2016-06-09] MEDS: ASPIRIN (EC) 81 MG TAB PO SCH ×2 (09:00→16:18)
[2016-06-09] MEDS: FISH OIL 1,000 MG CAP PO SCH (09:00)
[2016-06-09] MEDS: ACETYLCYSTEINE 600 MG CAP PO SCH ×2 (09:00→20:29)
[2016-06-09] MEDS: GABAPENTIN 300 MG CAP PO SCH ×3 (09:00→20:29)
[2016-06-09] MEDS: predniSONE 20 MG TAB PO SCH (09:00)
[2016-06-09] MEDS: CLOPIDOGREL 75 MG TAB PO SCH ×2 (09:00→16:19)
[2016-06-09] MEDS: GUAIFENESIN/DM (SR) TAB PO SCH ×2 (09:00→20:29)
[2016-06-09] MEDS: DOCUSATE SODIUM 100 MG CAP PO SCH ×2 (09:00→20:29)
[2016-06-09] MEDS: morphine 2 MG INJ IV PRN ×2 (09:05→18:30)
[2016-06-09] MEDS: SALMETEROL/FLUTICASONE 500/50 INHA INH SCH ×2 (09:17→20:30)
[2016-06-09] MEDS: FLUTICASONE 0.05% 16 GM NAS SPRAY NASAL SCH ×2 (09:18→20:30)
[2016-06-09 10:14] LABS: BASOPHIL # 0.1 10^3/ul (0.0-0.1); BASOPHILS % 0.7 % (0.0-2.0); EOSINOPHILS % 0.1 % (0.0-7.0); HEMATOCRIT 29.2 % (42.0-52.0); HEMOGLOBIN 9.6 g/dl (14.0-18.0); LYMPHOCYTES # 1.6 10^3/ul (0.8-2.9); LYMPHOCYTES % 8.4 % (15.0-51.0); MEAN CORPUSCULAR HEMOGLOBIN 31.6 pg (29.0-33.0); MEAN CORPUSCULAR HGB CONC 32.7 g/dl (32.0-37.0); MEAN CORPUSCULAR VOLUME 96.6 fl (82.0-101.0); MEAN PLATELET VOLUME 8.6 fl (7.4-10.4); MONOCYTE # 0.4 10^3/ul (0.3-0.9); MONOCYTES % 1.9 % (0.0-11.0); NEUTROPHIL # 16.8 10^3/ul (1.6-7.5); NEUTROPHILS % 88.9 % (39.0-77.0); PLATELET COUNT 242 10^3/UL (140-440); RED BLOOD COUNT 3.02 10^6/ul (4.70-6.10); RED CELL DISTRIBUTION WIDTH 15.6 % (11.5-14.5)
[2016-06-09 10:16] LABS: CONDITION 1; LH ANALYZER COMMENTS 1; SUSPECT 1
--- NOTE | 2016-06-09 10:34 | RADRPT ---
PROCEDURE: XR Chest. CLINICAL INDICATION: Elevated white blood cell count. TECHNIQUE: Single frontal view. COMPARISON: 06/05/2016. FINDINGS: There is a right arm PICC line with the tip in the superior vena cava. Pulmonary edema is unchanged . The lungs are otherwise clear. The heart is enlarged. There is calcification in the aorta consistent with atherosclerosis. There are small bilateral pleural effusions. There is no pneumothorax. IMPRESSION: 1. Right arm PICC line. 2. Pulmonary edema. 3. Cardiomegaly and atherosclerosis. 4. Small bilateral pleural effusions. 5. No change from 06/05/2016. RPTAT: QQ .Oscar Jackson MD, MD Date Time Electronically viewed and signed by .Oscar Jackson MD, MD on 06/09/2016 10:33 .R/
--- NOTE | 2016-06-09 11:31 | PN ---
Date/Time of Note Date/Time of Note DATE: 06/09/16 TIME: 11:00 Assessment/Plan VTE Prophylaxis VTE Prophylaxis Intervention: SCD's Lines/Catheters IV Catheter Type (from Nrsg): PICC Line Central line still needed: Yes (for IV access ) Urinary Cath still in place: Yes Reason Cath still needed: other (indicate) (good UOP ) Assessment/Plan Assessment/Plan 80 yo male with: 1. Leukocytosis: unclear source, WBC up to 20K overnight No diarrhea, no fevers, no diarrhea UA/Ucx, blood cx pending one from PICC line Per cardiology, Pacer placement cancelled until r/o for acute infection 2. NSTEMI, patient s/p TAVR and with cardiomyopathy with troponin picked up at 13, S/p PTCA with 1 stent to circ. s/p Cardioversion for Afib 3 days ago and back in A fib 2 days ago and converted back to SR last night while on Amio and after a 30 sec pause ... Echo with EF 30% On 3L NC, diuresis prn Continue ASA and Plavix, BBlock 3. Atrial fibrillation/Atrial Flutter, seems to be going back and forth in SR and atrial arrhythmias, appreciate Dr Luis's evaluation and recommendations. F/u cardiology recommendations today but so far kurt Hugo and Dr Luis patient at least needs BiV pacer and ideally BiV/ICD pacer, procedure on hold due to acute leukocytosis today. Continue Amiodarone, Lopressor. 4. COPD, O2 dependent: on 3L NC currently and BiPAP prn Continue Prednisone to 40 daily for now and will taper further slowly back to outpatient dosing. Nebs rx , Advair and Spiriva Discussed with Pulmonology, Bicarb close to baseline at 35, pH wnl so no further recommendations at this time 5. JOE on CKD: much better with renal function back down to baseline today Appreciate Dr Cordero's recommendations, Diuretics on hold for now, Monitor Renal function, better today. Replete K today and f/u labs in AM. 5. S/p accidental fall weekend prior to admission with RLE Hematoma and RUE ecchymosis and right rib fractures Pain control with Percocet prn and Tramadol prn Hb stable and CT right LE noted. Continue to monitor 6. Acute on chronic Anemia with hematomas and blood loss: s/p 2 units pRBC last week and stable Hb since then Monitor h/h 7. Chronic back pain with acute component now with rib fractures: Percocet and tramadol prn 8. Hypertension: Currently low BP so holding Diovan 9. Congestive heart failure, systolic dysfunction EF 30 % on echo. S/p episode of volume overload and respiratory distress requiring BIPAP, Much less peripheral edema and on 3L NC. Diuresis on hold due to renal function. 10. Temporal arteritis. The patient is already on prednisone. 11. Previous history of transient ischemic attack. Patient's mental status is stable and at baseline. Monitor Prophylaxis: SCDs as tolerated, PPI for GI ppx while on steroids especially Disposition: On Tele, back and forth SR and A fib. Diuresis on hold for now. Plans for BiV pacer +/- ICD once cx negative. Repleting K today Subjective 24 Hr Interval Summary Free Text/Dictation Patient clinically doing well but WBC acutely up to 20K within last 24 hrs with no specific reason, patient has been on steroids chronically, no diarrhea PICC line in place so blood cx ordered from peripheral and PICC line BiV pacer placement on cancelled today Exam/Review of Systems Vital Signs Vitals Vital Signs Date Time Temp Pulse Resp B/P Pulse Ox O2 Delivery O2 Flow Rate FiO2 06/09/16 08:21 65 06/09/16 07:52 92 4.0 06/09/16 07:52 20 Nasal Cannula 06/09/16 07:34 98.0 114/58 Intake and Output 06/08/16 06/08/16 06/09/16 14:59 22:59 06:59 Intake Total 960 ml 880 ml Output Total 550 ml 800 ml Balance 410 ml 80 ml Exam Constitutional: alert, frail, oriented Respiratory: diminished breath sounds (bases ), other (exam unchanged ) Cardiovascular: regular rate and rhythm Gastrointestinal: non-tender, soft Musculoskeletal: other (RLE blister/hematoma draining and no signs of acute infection) Extremities: normal pulses 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: [employer] II-XII intact, nl mental status, nl speech, other ( generalised weakness ) Results Result Diagram: 06/09/16 0950 06/09/16 0600 Results 24 hrs Laboratory Tests Test 06/08/16 11:05 06/08/16 11:56 06/08/16 17:34 06/08/16 20:59 Digoxin Level 0.7 L Bedside Glucose 183 194 216 Test 06/09/16 06:00 06/09/16 09:04 06/09/16 09:50 Alanine Aminotransferase (ALT/SGPT) 52 Albumin 2.9 L Albumin/Globulin Ratio 0.87 Alkaline Phosphatase 46 Anion Gap 8 Aspartate Amino Transf (AST/SGOT) 30 Basophils # 0.0 Pending Basophils % 0.0 Pending Blood Morphology Comment Blood Urea Nitrogen 33 H Calcium Level 8.0 L Carbon Dioxide Level 37 H Chloride Level 96 L Creatinine 1.01 Direct Bilirubin 0.00 Eosinophils # 0.0 Pending Eosinophils % 0.0 Pending Globulin 3.30 H Glucose Level 94 Hematocrit 29.2 L 29.2 L Hemoglobin 9.7 L 9.6 L INR International Normalized Ratio 1.17 Indirect Bilirubin 0.7 Lymphocytes # 1.3 Pending Lymphocytes % 6.1 L Pending Magnesium Level 2.1 Mean Corpuscular Hemoglobin 32.7 31.6 Mean Corpuscular Hemoglobin Concent 33.3 32.7 Mean Corpuscular Volume 98.4 96.6 Mean Platelet Volume 8.9 8.6 Monocytes # 0.0 L Pending Monocytes % 0.2 Pending Neutrophils # 19.3 H Pending Neutrophils % 93.7 H Pending Nucleated Red Blood Cells # 0.0 Pending Nucleated Red Blood Cells % 0.0 Pending Platelet Count 246 242 Potassium Level 3.2 L Prothrombin Time 15.0 H Prothrombin Time Ratio 1.2 Red Blood Count 2.97 L 3.02 L Red Cell Distribution Width 15.7 H 15.6 H Sodium Level 138 Total Bilirubin 0.7 Total Protein 6.2 White Blood Count 20.6 #H 19.0 H Bedside Glucose 110 Medications Medications Current Medications Aspirin (Halfprin) 81 mg DAILY PO Last administered on 06/08/16at 09:01; Admin Dose 81 MG; Start 05/27/16 at 09:00 Clopidogrel Bisulfate (plaVIX) 75 mg DAILY PO Last administered on 06/08/16at 09:00; Admin Dose 75 MG; Start 05/27/16 at 09:00 Ferrous Sulfate (Ferrous Sulfate (Ec)) 325 mg BID PO Last administered on 06/08at 21:01; Admin Dose 325 MG; Start 05/27/16 at 09:00 Fluticasone Propionate (Flonase 0.05% Nasal) 1 spray BID NASAL Last administered on 06/09/16 09:18; Admin Dose 1 SPRAY; Start 05/27/16 at 09:00 Gabapentin (Neurontin) 300 mg TID PO Last administered on 06/08/16 21:02; Admin Dose 300 MG; Start 05/27/16 at 09:00 Guaifenesin/ Dextromethorphan (Robitussin Dm Liquid Cup) 10 ml Q4H PRN PO COUGH Last administered on 06/09/16 02:33; Admin Dose 10 ML; Start 05/26/16 at 21:30 Montelukast Sodium (Singulair) 10 mg HS PO Last administered on 06/08/16 21: 01; Admin Dose 10 MG; Start 05/27/16 at 21:00 Oxycodone/ Acetaminophen (Endocet (10/ 325)) 1 tab Q6 PRN PO PAIN; Start 05/26 at 21:30 Salmeterol Xinafoate/ Fluticasone (Advair 500/50 Diskus) 1 inh BID INH Last administered on 06/09/16 09:17; Admin Dose 1 INH; Start 05/27/16 at 09:00 Acetaminophen (Tylenol Tab) 650 mg Q4H PRN PO pain/fever; Start 05/26/16 at 21 :30 Ondansetron HCl (Zofran Inj) 4 mg Q4H PRN IV nausea Last administered on 17:32; Admin Dose 4 MG; Start 05/26/16 at 21:30 Guaifenesin/ Dextromethorphan (Mucinex Dm) 1 tab BID PO Last administered on 16:42; Admin Dose 1 TAB; Start 05/27/16 at 09:00 Fish Oil (Fish Oil) 1,000 mg DAILY PO Last administered on 06/08/16 09:02; Admin Dose 1,000 MG; Start 05/27/16 at 09:00 Atorvastatin Calcium (Lipitor) 80 mg DAILY@21 PO Last administered on 21:01; Admin Dose 80 MG; Start 05/27/16 at 00:00 Tramadol HCl (Ultram) 50 mg Q6H PRN PO PAIN Last administered on 06/02/16 20: 40; Admin Dose 50 MG; Start 05/27/16 at 14:00 Miscellaneous Information 1 ea NOTE XX ; Start 05/27/16 at 18:30 Glucose (Glutose) 15 gm Q15M PRN PO DECREASED GLUCOSE; Start 05/27/16 at 18:30 Glucose (Glutose) 22.5 gm Q15M PRN PO DECREASED GLUCOSE; Start 05/27/16 at 18: 30 Dextrose (D50w Syringe) 25 ml Q15M PRN IV DECREASED GLUCOSE; Start 05/27/16 at 18:30 Dextrose (D50w Syringe) 50 ml Q15M PRN IV DECREASED GLUCOSE; Start 05/27/16 at 18:30 Glucagon (Glucagen) 1 mg Q15M PRN IM DECREASED GLUCOSE; Start 05/27/16 at 18: 30 Glucose (Glutose) 15 gm Q15M PRN BUCCAL DECREASED GLUCOSE; Start 05/27/16 at 18:30 IV Flush (NS 10 ml) 10 ml PRN PRN IV IV PROTOCOL; Start 05/28/16 at 17:30 Prednisone (Prednisone) 40 mg DAILY PO Last administered on 06/08/16at 09:01; Admin Dose 40 MG; Start 05/30/16 at 09:00 Morphine Sulfate (morphine) 1 mg Q4H PRN IV PAIN Last administered on at 09:05; Admin Dose 1 MG; Start 06/01/16 at 09:30 Docusate Sodium (Colace) 100 mg BID PO Last administered on 06/08/16at 21:02; Admin Dose 100 MG; Start 06/01/16 at 21:00 Senna (Senokot) 1 tab BID PRN PO CONSTIPATION; Start 06/01/16 at 18:30 Metoprolol Tartrate (Lopressor) 50 mg TID PO Last administered on 06/08/16at 15 :45; Admin Dose 500 MG; Start 06/05/16 at 13:00 Digoxin 0.125 mg 0.125 mg DAILY@13 PO Last administered on 06/06/16at 13:34; Admin Dose 0.125 MG; Start 06/06/16 at 13:00; Status Future Hold Diltiazem HCl (Cardizem-D5W 125 Mg/125 ml Drip) 125 ml @ 5 mls/hr TITRATE IV Last administered on 06/05/16at 19:43; Admin Dose 15 MLS/HR; Start 06/05/16 at 11:30 Apixaban (Eliquis) 5 mg BID PO Last administered on 06/07/16at 08:35; Admin Dose 5 MG; Start 06/05/16 at 21:00; Status Future Hold Amiodarone HCl 200 mg 200 mg DAILY PO Last administered on 06/08/16at 09:02; Admin Dose 200 MG; Start 06/07/16 at 09:00 Sodium Chloride (NS) 1,000 ml @ 100 mls/hr Q10H IV Last administered on at 23:34; Admin Dose 100 MLS/HR; Start 06/08/16 at 23:00 Acetylcysteine (Nac) 600 mg BID PO Last administered on 06/08/16at 21:01; Admin Dose 600 MG; Start 06/08/16 at 11:00 Procedures Procedures PROCEDURE: XR Chest. CLINICAL INDICATION: Elevated white blood cell count. TECHNIQUE: Single frontal view. COMPARISON: 06/05/2016. FINDINGS: There is a right arm PICC line with the tip in the superior vena cava. Pulmonary edema is unchanged. The lungs are otherwise clear. The heart is enlarged. There is calcification in the aorta consistent with atherosclerosis. There are small bilateral pleural effusions. There is no pneumothorax. IMPRESSION: 1. Right arm PICC line. 2. Pulmonary edema. 3. Cardiomegaly and atherosclerosis. 4. Small bilateral pleural effusions. 5. No change from 06/05/2016. RPTAT: QQ .Oscar Jackson MD, MD Date Time Electronically viewed and signed by .Oscar Jackson MD, MD on 06/09/2016 10:33 RICHIE SWEET Jun 09, 2016 11:10
[2016-06-09] MEDS: SOD CHLORIDE 0.9% 1,000 ML IV SCH (11:51)
--- NOTE | 2016-06-09 12:52 | CONS ---
Date/Time of Note Date/Time of Note DATE: 06/09/16 TIME: 12:50 Assessment/Plan Assessment/Plan Chief Complaint/Hosp Course - Acute Kidney Injury post Contrast - CKD ( ? HTN Nephrosclerosis ) - Acute [place] - Hyperkalemia - ? Rhabdomyolysis - COPD - Hx of Temporal Arteritis - CAD/CHF PLAN: Restrict Fluids Monitor labs closely Remains Alkalotic Restart Diamox today ( was ~ 250 Ml negative past 24 hours ) monitor renal Replace potassium Problems: Consultation Date/Type/Reason Admit Date/Time May 26, 2016 at 19:17 Initial Consult Date 05/28/16 Type of Consultation: Nephrology Reason for Consultation JOE / CKD Post Cardiac Angiogram 24 HR Interval Summary Constitutional: no complaints Exam/Review of Systems Vital Signs Vitals Vital Signs Date Time Temp Pulse Resp B/P Pulse Ox O2 Delivery O2 Flow Rate FiO2 06/09/16 12:39 64 06/09/16 11:40 98.1 20 116/56 94 06/09/16 07:52 4.0 06/09/16 07:52 Nasal Cannula Intake and Output 06/08/16 06/08/16 06/09/16 15:00 23:00 07:00 Intake Total 960 ml 880 ml Output Total 550 ml 800 ml Balance 410 ml 80 ml Exam Constitutional: alert, oriented Psych: no complaints Eyes: nl conjunctiva Neck: jvd, supple Respiratory: crackles/rales Cardiovascular: regular rate and rhythm, systolic murmur Gastrointestinal: soft Results Result Diagram: 06/09/16 0950 06/09/16 0600 Results 24 hrs Laboratory Tests Test 06/08/16 17:34 06/08/16 20:59 06/09/16 06:00 06/09/16 09:04 Bedside Glucose 194 216 110 Alanine Aminotransferase (ALT/SGPT) 52 Albumin 2.9 L Albumin/Globulin Ratio 0.87 Alkaline Phosphatase 46 Anion Gap 8 Aspartate Amino Transf (AST/SGOT) 30 Basophils # 0.0 Basophils % 0.0 Blood Morphology Comment Blood Urea Nitrogen 33 H Calcium Level 8.0 L Carbon Dioxide Level 37 H Chloride Level 96 L Creatinine 1.01 Direct Bilirubin 0.00 Eosinophils # 0.0 Eosinophils % 0.0 Globulin 3.30 H Glucose Level 94 Hematocrit 29.2 L Hemoglobin 9.7 L INR International Normalized Ratio 1.17 Indirect Bilirubin 0.7 Lymphocytes # 1.3 Lymphocytes % 6.1 L Magnesium Level 2.1 Mean Corpuscular Hemoglobin 32.7 Mean Corpuscular Hemoglobin Concent 33.3 Mean Corpuscular Volume 98.4 Mean Platelet Volume 8.9 Monocytes # 0.0 L Monocytes % 0.2 Neutrophils # 19.3 H Neutrophils % 93.7 H Nucleated Red Blood Cells # 0.0 Nucleated Red Blood Cells % 0.0 Platelet Count 246 Potassium Level 3.2 L Prothrombin Time 15.0 H Prothrombin Time Ratio 1.2 Red Blood Count 2.97 L Red Cell Distribution Width 15.7 H Sodium Level 138 Total Bilirubin 0.7 Total Protein 6.2 White Blood Count 20.6 #H Test 06/09/16 09:50 06/09/16 11:55 Basophils # 0.1 Basophils % 0.7 Blood Morphology Comment Differential Comment AUTO w/SCAN Eosinophils # 0.0 Eosinophils % 0.1 Hematocrit 29.2 L Hemoglobin 9.6 L Lymphocytes # 1.6 Lymphocytes % 8.4 L Mean Corpuscular Hemoglobin 31.6 Mean Corpuscular Hemoglobin Concent 32.7 Mean Corpuscular Volume 96.6 Mean Platelet Volume 8.6 Monocytes # 0.4 Monocytes % 1.9 Neutrophils # 16.8 H Neutrophils % 88.9 H Nucleated Red Blood Cells # 0.0 Nucleated Red Blood Cells % 0.0 Platelet Count 242 Red Blood Count 3.02 L Red Cell Distribution Width 15.6 H White Blood Count 19.0 H Bedside Glucose 111 Medications Medications Current Medications Aspirin (Halfprin) 81 mg DAILY PO Last administered on 06/08/16 09:01; Admin Dose 81 MG; Start 05/27/16 at 09:00 Clopidogrel Bisulfate (plaVIX) 75 mg DAILY PO Last administered on 06/08/16at 09:00; Admin Dose 75 MG; Start 05/27/16 at 09:00 Ferrous Sulfate (Ferrous Sulfate (Ec)) 325 mg BID PO Last administered on 06/08 21:01; Admin Dose 325 MG; Start 05/27/16 at 09:00 Fluticasone Propionate (Flonase 0.05% Nasal) 1 spray BID NASAL Last administered on 06/09/16 09:18; Admin Dose 1 SPRAY; Start 05/27/16 at 09:00 Gabapentin (Neurontin) 300 mg TID PO Last administered on 12/26/16at 21:02; Admin Dose 300 MG; Start 05/27/16 at 09:00 Guaifenesin/ Dextromethorphan (Robitussin Dm Liquid Cup) 10 ml Q4H PRN PO COUGH Last administered on 06/09/16at 02:33; Admin Dose 10 ML; Start 05/26/16 at 21:30 Montelukast Sodium (Singulair) 10 mg HS PO Last administered on 06/08/16at 21: 01; Admin Dose 10 MG; Start 05/27/16 at 21:00 Oxycodone/ Acetaminophen (Endocet (10/ 325)) 1 tab Q6 PRN PO PAIN; Start 05/26 at 21:30 Salmeterol Xinafoate/ Fluticasone (Advair 500/50 Diskus) 1 inh BID INH Last administered on 06/09/16at 09:17; Admin Dose 1 INH; Start 05/27/16 at 09:00 Acetaminophen (Tylenol Tab) 650 mg Q4H PRN PO pain/fever; Start 05/26/16 at 21 :30 Ondansetron HCl (Zofran Inj) 4 mg Q4H PRN IV nausea Last administered on at 17:32; Admin Dose 4 MG; Start 05/26/16 at 21:30 Guaifenesin/ Dextromethorphan (Mucinex Dm) 1 tab BID PO Last administered on at 16:42; Admin Dose 1 TAB; Start 05/27/16 at 09:00 Fish Oil (Fish Oil) 1,000 mg DAILY PO Last administered on 06/08/16at 09:02; Admin Dose 1,000 MG; Start 05/27/16 at 09:00 Atorvastatin Calcium (Lipitor) 80 mg DAILY@21 PO Last administered on at 21:01; Admin Dose 80 MG; Start 05/27/16 at 00:00 Tramadol HCl (Ultram) 50 mg Q6H PRN PO PAIN Last administered on 06/02/16at 20: 40; Admin Dose 50 MG; Start 05/27/16 at 14:00 Miscellaneous Information 1 ea NOTE XX ; Start 05/27/16 at 18:30 Glucose (Glutose) 15 gm Q15M PRN PO DECREASED GLUCOSE; Start 05/27/16 at 18:30 Glucose (Glutose) 22.5 gm Q15M PRN PO DECREASED GLUCOSE; Start 05/27/16 at 18: 30 Dextrose (D50w Syringe) 25 ml Q15M PRN IV DECREASED GLUCOSE; Start 05/27/16 at 18:30 Dextrose (D50w Syringe) 50 ml Q15M PRN IV DECREASED GLUCOSE; Start 05/27/16 at 18:30 Glucagon (Glucagen) 1 mg Q15M PRN IM DECREASED GLUCOSE; Start 05/27/16 at 18: 30 Glucose (Glutose) 15 gm Q15M PRN BUCCAL DECREASED GLUCOSE; Start 05/27/16 at 18:30 IV Flush (NS 10 ml) 10 ml PRN PRN IV IV PROTOCOL; Start 05/28/16 at 17:30 Prednisone (Prednisone) 40 mg DAILY PO Last administered on 06/08/16at 09:01; Admin Dose 40 MG; Start 05/30/16 at 09:00 Morphine Sulfate (morphine) 1 mg Q4H PRN IV PAIN Last administered on at 09:05; Admin Dose 1 MG; Start 06/01/16 at 09:30 Docusate Sodium (Colace) 100 mg BID PO Last administered on 06/08/16at 21:02; Admin Dose 100 MG; Start 06/01/16 at 21:00 Senna (Senokot) 1 tab BID PRN PO CONSTIPATION; Start 06/01/16 at 18:30 Metoprolol Tartrate (Lopressor) 50 mg TID PO Last administered on 06/08/16at 15 :45; Admin Dose 500 MG; Start 06/05/16 at 13:00 Digoxin 0.125 mg 0.125 mg DAILY@13 PO Last administered on 06/06/16at 13:34; Admin Dose 0.125 MG; Start 06/06/16 at 13:00; Status Future Hold Diltiazem HCl (Cardizem-D5W 125 Mg/125 ml Drip) 125 ml @ 5 mls/hr TITRATE IV Last administered on 06/05/16at 19:43; Admin Dose 15 MLS/HR; Start 06/05/16 at 11:30 Apixaban (Eliquis) 5 mg BID PO Last administered on 06/07/16at 08:35; Admin Dose 5 MG; Start 06/05/16 at 21:00; Status Future Hold Amiodarone HCl 200 mg 200 mg DAILY PO Last administered on 06/08/16at 09:02; Admin Dose 200 MG; Start 06/07/16 at 09:00 Sodium Chloride (NS) 1,000 ml @ 100 mls/hr Q10H IV Last administered on at 11:51; Admin Dose 100 MLS/HR; Start 06/08/16 at 23:00 Acetylcysteine (Nac) 600 mg BID PO Last administered on 06/08/16at 21:01; Admin Dose 600 MG; Start 06/08/16 at 11:00 PATT FARRELL MD Jun 09, 2016 12:52
[2016-06-09 13:27] LABS: ADD UMIC YES; URINE BILIRUBIN (Dip) NEGATIVE (NEGATIVE); URINE BLOOD (Dip) TRACE (NEGATIVE); URINE COLOR LT. YELLOW (YELLOW); URINE GLUCOSE (Dip) NEGATIVE (NEGATIVE); URINE KETONES (Dip) NEGATIVE (NEGATIVE); URINE LEUKOCYTE ESTERASE (Dip) TRACE (NEGATIVE); URINE NITRITE (Dip) NEGATIVE (NEGATIVE); URINE TOTAL PROTEIN (Dip) TRACE (NEGATIVE); URINE UROBILINOGEN (Dip) 2.0 E.U./dL (0.1-1.0)
[2016-06-09 13:54] LABS: BACTERIA,URINE FEW; URINE RBCS 0-2 /HPF (0)
[2016-06-09] MEDS ORDERED: FUROSEMIDE 20 MG INJ IV ONE (15:30)
--- NOTE | 2016-06-09 15:32 | CONS ---
Date/Time of Note Date/Time of Note DATE: 06/09/16 TIME: 15:30 Assessment/Plan Assessment/Plan Additional Assessment/Plan Non-ST elevation [place] status post drug-eluting stenting to circumflex 06/01/2016 Respiratory Failure Acute Decompensated Systolic CHF Paroxysmal atrial fibrillation/flutter Transient heart block Acute kidney injury, improving Cardiomyopathy ejection fraction 35% Aortic stenosis, status post transcatheter aortic valve replacement in January 2015. Chronic obstructive pulmonary disease on home oxygen. -Patient planned for pacemaker today but given leukocytosis, on hold until infectious workup performed. Restart medications, would use Lovenox at the current time until after procedure. Continue aspirin, Plavix, statin, beta mayela, amiodarone. Stop IV fluids. Consultation Date/Type/Reason Admit Date/Time May 26, 2016 at 19:17 Type of Consultation: cv 24 HR Interval Summary Free Text/Dictation [place]ian with improvement in shortness of breath, denies dizziness, chest pain or palpitations Exam/Review of Systems Vital Signs Vitals Vital Signs Date Time Temp Pulse Resp B/P Pulse Ox O2 Delivery O2 Flow Rate FiO2 06/09/16 15:11 97.5 71 22 121/58 94 06/09/16 14:27 Nasal Cannula 4.0 Intake and Output 06/08/16 06/08/16 06/09/16 15:00 23:00 07:00 Intake Total 960 ml 880 ml Output Total 550 ml 800 ml Balance 410 ml 80 ml Exam No apparent distress Constitutional: alert, oriented Head: normocephalic Neck: supple Respiratory: other (course breath sounds bilaterally with scattered rhonchi, no wheezing) Cardiovascular: other (S1-S2 heard), regular rate and rhythm Gastrointestinal: bowel sounds, non-tender, other (no guarding), soft Extremities: edema (trace) Results Result Diagram: 06/09/16 0950 06/09/16 0600 Results 24 hrs Laboratory Tests Test 06/08/16 17:34 06/08/16 20:59 06/09/16 06:00 06/09/16 09:04 Bedside Glucose 194 216 110 Alanine Aminotransferase (ALT/SGPT) 52 Albumin 2.9 L Albumin/Globulin Ratio 0.87 Alkaline Phosphatase 46 Anion Gap 8 Aspartate Amino Transf (AST/SGOT) 30 Basophils # 0.0 Basophils % 0.0 Blood Morphology Comment Blood Urea Nitrogen 33 H Calcium Level 8.0 L Carbon Dioxide Level 37 H Chloride Level 96 L Creatinine 1.01 Direct Bilirubin 0.00 Eosinophils # 0.0 Eosinophils % 0.0 Globulin 3.30 H Glucose Level 94 Hematocrit 29.2 L Hemoglobin 9.7 L INR International Normalized Ratio 1.17 Indirect Bilirubin 0.7 Lymphocytes # 1.3 Lymphocytes % 6.1 L Magnesium Level 2.1 Mean Corpuscular Hemoglobin 32.7 Mean Corpuscular Hemoglobin Concent 33.3 Mean Corpuscular Volume 98.4 Mean Platelet Volume 8.9 Monocytes # 0.0 L Monocytes % 0.2 Neutrophils # 19.3 H Neutrophils % 93.7 H Nucleated Red Blood Cells # 0.0 Nucleated Red Blood Cells % 0.0 Platelet Count 246 Potassium Level 3.2 L Prothrombin Time 15.0 H Prothrombin Time Ratio 1.2 Red Blood Count 2.97 L Red Cell Distribution Width 15.7 H Sodium Level 138 Total Bilirubin 0.7 Total Protein 6.2 White Blood Count 20.6 #H Test 06/09/16 09:50 06/09/16 11:55 06/09/16 12:26 Basophils # 0.1 Basophils % 0.7 Blood Morphology Comment Differential Comment AUTO w/SCAN Eosinophils # 0.0 Eosinophils % 0.1 Hematocrit 29.2 L Hemoglobin 9.6 L Lymphocytes # 1.6 Lymphocytes % 8.4 L Mean Corpuscular Hemoglobin 31.6 Mean Corpuscular Hemoglobin Concent 32.7 Mean Corpuscular Volume 96.6 Mean Platelet Volume 8.6 Monocytes # 0.4 Monocytes % 1.9 Neutrophils # 16.8 H Neutrophils % 88.9 H Nucleated Red Blood Cells # 0.0 Nucleated Red Blood Cells % 0.0 Platelet Count 242 Red Blood Count 3.02 L Red Cell Distribution Width 15.6 H White Blood Count 19.0 H Bedside Glucose 111 Urine Amorphous Urates FEW Urine Bacteria FEW Urine Bilirubin NEGATIVE Urine Clarity CLEAR Urine Color LT. YELLOW Urine Epithelial Cells FEW Urine Glucose NEGATIVE Urine Hemoglobin TRACE Urine Ketones NEGATIVE Urine Leukocyte Esterase TRACE H Urine Microscopic RBC 0-2 Urine Microscopic WBC 2-5 Urine Nitrite NEGATIVE Urine Specific Robertson 1.010 Urine Total Protein TRACE Urine Urobilinogen 2.0 E.U./dL H Urine pH 8.0 Medications Medications Current Medications Aspirin (Halfprin) 81 mg DAILY PO Last administered on 06/08/16at 09:01; Admin Dose 81 MG; Start 05/27/16 at 09:00 Clopidogrel Bisulfate (plaVIX) 75 mg DAILY PO Last administered on 06/08/16 09:00; Admin Dose 75 MG; Start 05/27/16 at 09:00 Ferrous Sulfate (Ferrous Sulfate (Ec)) 325 mg BID PO Last administered on 06/08 21:01; Admin Dose 325 MG; Start 05/27/16 at 09:00 Fluticasone Propionate (Flonase 0.05% Nasal) 1 spray BID NASAL Last administered on 06/09/16 09:18; Admin Dose 1 SPRAY; Start 05/27/16 at 09:00 Gabapentin (Neurontin) 300 mg TID PO Last administered on 06/08/16 21:02; Admin Dose 300 MG; Start 05/27/16 at 09:00 Guaifenesin/ Dextromethorphan (Robitussin Dm Liquid Cup) 10 ml Q4H PRN PO COUGH Last administered on 06/09/16 02:33; Admin Dose 10 ML; Start 05/26/16 at 21:30 Montelukast Sodium (Singulair) 10 mg HS PO Last administered on 06/08/16 21: 01; Admin Dose 10 MG; Start 05/27/16 at 21:00 Oxycodone/ Acetaminophen (Endocet (10/ 325)) 1 tab Q6 PRN PO PAIN; Start 05/26 at 21:30 Salmeterol Xinafoate/ Fluticasone (Advair 500/50 Diskus) 1 inh BID INH Last administered on 06/09/16 09:17; Admin Dose 1 INH; Start 05/27/16 at 09:00 Acetaminophen (Tylenol Tab) 650 mg Q4H PRN PO pain/fever; Start 05/26/16 at 21 :30 Ondansetron HCl (Zofran Inj) 4 mg Q4H PRN IV nausea Last administered on 17:32; Admin Dose 4 MG; Start 05/26/16 at 21:30 Guaifenesin/ Dextromethorphan (Mucinex Dm) 1 tab BID PO Last administered on 16:42; Admin Dose 1 TAB; Start 05/27/16 at 09:00 Fish Oil (Fish Oil) 1,000 mg DAILY PO Last administered on 12/26/16at 09:02; Admin Dose 1,000 MG; Start 05/27/16 at 09:00 Atorvastatin Calcium (Lipitor) 80 mg DAILY@21 PO Last administered on at 21:01; Admin Dose 80 MG; Start 05/27/16 at 00:00 Tramadol HCl (Ultram) 50 mg Q6H PRN PO PAIN Last administered on 06/02/16at 20: 40; Admin Dose 50 MG; Start 05/27/16 at 14:00 Miscellaneous Information 1 ea NOTE XX ; Start 05/27/16 at 18:30 Glucose (Glutose) 15 gm Q15M PRN PO DECREASED GLUCOSE; Start 05/27/16 at 18:30 Glucose (Glutose) 22.5 gm Q15M PRN PO DECREASED GLUCOSE; Start 05/27/16 at 18: 30 Dextrose (D50w Syringe) 25 ml Q15M PRN IV DECREASED GLUCOSE; Start 05/27/16 at 18:30 Dextrose (D50w Syringe) 50 ml Q15M PRN IV DECREASED GLUCOSE; Start 05/27/16 at 18:30 Glucagon (Glucagen) 1 mg Q15M PRN IM DECREASED GLUCOSE; Start 05/27/16 at 18: 30 Glucose (Glutose) 15 gm Q15M PRN BUCCAL DECREASED GLUCOSE; Start 05/27/16 at 18:30 IV Flush (NS 10 ml) 10 ml PRN PRN IV IV PROTOCOL; Start 05/28/16 at 17:30 Prednisone (Prednisone) 40 mg DAILY PO Last administered on 06/08/16at 09:01; Admin Dose 40 MG; Start 05/30/16 at 09:00 Morphine Sulfate (morphine) 1 mg Q4H PRN IV PAIN Last administered on at 09:05; Admin Dose 1 MG; Start 06/01/16 at 09:30 Docusate Sodium (Colace) 100 mg BID PO Last administered on 06/08/16at 21:02; Admin Dose 100 MG; Start 06/01/16 at 21:00 Senna (Senokot) 1 tab BID PRN PO CONSTIPATION; Start 06/01/16 at 18:30 Metoprolol Tartrate (Lopressor) 50 mg TID PO Last administered on 06/08/16at 15 :45; Admin Dose 500 MG; Start 06/05/16 at 13:00 Digoxin (Digoxin) 0.125 mg DAILY@13 PO Last administered on 06/06/16at 13:34; Admin Dose 0.125 MG; Start 06/06/16 at 13:00; Status Future Hold Amiodarone HCl (Cordarone) 200 mg DAILY PO Last administered on 06/08/16at 09: 02; Admin Dose 200 MG; Start 06/07/16 at 09:00 Acetylcysteine (Nac) 600 mg BID PO Last administered on 06/08/16at 21:01; Admin Dose 600 MG; Start 06/08/16 at 11:00 Enoxaparin Sodium (Lovenox) 80 mg BID SC ; Start 06/09/16 at 21:00 Calos Peralta DO Jun 09, 2016 15:32
[2016-06-09] MEDS: traMADol 50 MG TAB PO PRN (17:31)
[2016-06-09] MEDS: MONTELUKAST 10 MG TAB PO SCH (20:29)
[2016-06-09] MEDS: ATORVASTATIN 80 MG TAB PO SCH (20:30)
[2016-06-09] MEDS: ENOXAPARIN 80 MG/0.8 ML SYG SC SCH (21:05)
[2016-06-10] VITALS (12 sets, daily range): BP systolic 124–144; BP diastolic 56–68; PULSE 51–65; RESP 18–20
[2016-06-10] MEDS: ALBUTEROL/IPRATROPIUM (NEB) 3 ML AMP HHN SCH ×4 (02:05→19:57)
[2016-06-10] MEDS: GUAIFENESIN/DM 5ML CUP PO PRN ×2 (03:38→13:02)
[2016-06-10 06:47] LABS: BASOPHILS % 0.6 % (0.0-2.0); EOSINOPHILS # 0.2 10^3/ul (0.0-0.5); HEMATOCRIT 30.9 % (42.0-52.0); HEMOGLOBIN 10.2 g/dl (14.0-18.0); LYMPHOCYTES # 1.4 10^3/ul (0.8-2.9); LYMPHOCYTES % 16.6 % (15.0-51.0); MEAN CORPUSCULAR HEMOGLOBIN 32.1 pg (29.0-33.0); MEAN CORPUSCULAR HGB CONC 32.9 g/dl (32.0-37.0); MEAN CORPUSCULAR VOLUME 97.5 fl (82.0-101.0); MEAN PLATELET VOLUME 8.9 fl (7.4-10.4); MONOCYTE # 0.4 10^3/ul (0.3-0.9); MONOCYTES % 4.6 % (0.0-11.0); NEUTROPHIL # 6.3 10^3/ul (1.6-7.5); NEUTROPHILS % 75.2 % (39.0-77.0); PLATELET COUNT 201 10^3/UL (140-440); RED BLOOD COUNT 3.17 10^6/ul (4.70-6.10); RED CELL DISTRIBUTION WIDTH 16.2 % (11.5-14.5); UNCORRECTED WBC 8.4 10^3/ul (4.8-10.8); WHITE BLOOD COUNT 8.4 10^3/ul (4.8-10.8)
[2016-06-10 06:48] LABS: CONDITION 1; LH ANALYZER COMMENTS 1
[2016-06-10 06:49] LABS: POTASSIUM 3.3 mmol/L (3.5-5.1)
[2016-06-10 06:52] LABS: CREATININE 0.97 mg/dl (0.61-1.24)
[2016-06-10 06:53] LABS: CALCIUM 7.7 mg/dl (8.4-10.2)
[2016-06-10] MEDS: INSULIN ASPART [NOVOLOG] 3 ML PEN SC SCH ×4 (07:45→21:35)
[2016-06-10] MEDS: SALMETEROL/FLUTICASONE 500/50 INHA INH SCH ×2 (09:15→21:22)
[2016-06-10] MEDS: GABAPENTIN 300 MG CAP PO SCH ×3 (09:15→21:23)
[2016-06-10] MEDS: DOCUSATE SODIUM 100 MG CAP PO SCH ×2 (09:15→21:22)
[2016-06-10] MEDS: FLUTICASONE 0.05% 16 GM NAS SPRAY NASAL SCH ×2 (09:15→21:22)
[2016-06-10] MEDS: GUAIFENESIN/DM (SR) TAB PO SCH ×2 (09:16→22:17)
[2016-06-10] MEDS: ACETYLCYSTEINE 600 MG CAP PO SCH ×2 (09:16→21:23)
[2016-06-10] MEDS: FUROSEMIDE 40 MG TAB PO SCH (09:16)
[2016-06-10] MEDS: FISH OIL 1,000 MG CAP PO SCH (09:16)
[2016-06-10] MEDS: FERROUS SULFATE (EC) 325 MG TAB PO SCH ×2 (09:17→21:23)
[2016-06-10] MEDS: ASPIRIN (EC) 81 MG TAB PO SCH (09:17)
[2016-06-10] MEDS: METOPROLOL 50 MG TAB PO SCH ×2 (09:17→21:24)
[2016-06-10] MEDS: AMIODARONE 200 MG TAB PO SCH (09:18)
[2016-06-10] MEDS: predniSONE 20 MG TAB PO SCH (09:18)
[2016-06-10] MEDS: morphine 2 MG INJ IV PRN ×2 (09:18→21:46)
[2016-06-10] MEDS: CLOPIDOGREL 75 MG TAB PO SCH (09:18)
[2016-06-10 09:30] LABS: PHOSPHORUS 1.9 mg/dl (2.5-4.9)
[2016-06-10] MEDS: ENOXAPARIN 80 MG/0.8 ML SYG SC SCH ×2 (09:35→21:45)
[2016-06-10] MEDS ORDERED: POTASSIUM CHLORIDE (SR) 20 MEQ TAB PO STA (12:30)
--- NOTE | 2016-06-10 12:43 | CONS ---
Date/Time of Note Date/Time of Note DATE: 06/10/16 TIME: 12:38 Assessment/Plan Assessment/Plan Additional Assessment/Plan Non-ST elevation [place] status post drug-eluting stenting to circumflex 06/01/2016 Respiratory Failure Acute Decompensated Systolic CHF, improving Paroxysmal atrial fibrillation/flutter Transient heart block Acute kidney injury, improving Cardiomyopathy ejection fraction 35% Aortic stenosis, status post transcatheter aortic valve replacement in January 2015. Chronic obstructive pulmonary disease on home oxygen. -Patient with resolution of leukocytosis, cultures sent with positive blood cultures from blood drawn from PICC line. This was verified by the nurse via the lab. Patient also with greater than 100,000 colonies of enterococcus in the urine. Would consider infectious disease evaluation given need of pacemaker placement and to make sure patient is "infection free" prior to placement. On telemetry, patient remains in sinus rhythm, I would decrease Lopressor to twice a day dosing. Patient currently on Lovenox for anticoagulation in anticipation of procedure. Consultation Date/Type/Reason Admit Date/Time May 26, 2016 at 19:17 Type of Consultation: cv 24 HR Interval Summary Free Text/Dictation Patient with improvement in shortness of breath, still with mild nonproductive cough, denies chest pain Exam/Review of Systems Vital Signs Vitals Vital Signs Date Time Temp Pulse Resp B/P Pulse Ox O2 Delivery O2 Flow Rate FiO2 06/10/16 12:33 54 06/10/16 11:18 97.9 20 124/57 95 06/10/16 07:53 Nasal Cannula 3.0 Intake and Output 06/09/16 06/09/16 06/10/16 15:00 23:00 07:00 Intake Total 720 ml 120 ml Output Total 1400 ml 675 ml Balance -680 ml -555 ml Exam No apparent distress, follows commands Constitutional: alert, oriented Head: normocephalic Neck: supple Respiratory: other (course breath sounds bilaterally with mild scattered rhonchi, no wheezing) Cardiovascular: other (S1-S2 heard), regular rate and rhythm Gastrointestinal: bowel sounds, non-tender, other (no guarding), soft Extremities: other (no edema) Results Result Diagram: 06/10/16 0610 06/10/16 0610 Results 24 hrs Laboratory Tests Test 06/09/16 20:27 06/10/16 06:10 06/10/16 07:42 06/10/16 12:09 Bedside Glucose 116 85 134 Anion Gap 9 Basophils # 0.0 Basophils % 0.6 Blood Morphology Comment Blood Urea Nitrogen 27 H Calcium Level 7.7 L Carbon Dioxide Level 35 H Chloride Level 99 Creatinine 0.97 Eosinophils # 0.2 Eosinophils % 3.0 Glucose Level 80 Hematocrit 30.9 L Hemoglobin 10.2 L Lymphocytes # 1.4 Lymphocytes % 16.6 Magnesium Level 2.0 Mean Corpuscular Hemoglobin 32.1 Mean Corpuscular Hemoglobin Concent 32.9 Mean Corpuscular Volume 97.5 Mean Platelet Volume 8.9 Monocytes # 0.4 Monocytes % 4.6 Neutrophils # 6.3 Neutrophils % 75.2 Nucleated Red Blood Cells # 0.0 Nucleated Red Blood Cells % 0.0 Phosphorus Level 1.9 L Platelet Count 201 Potassium Level 3.3 L Red Blood Count 3.17 L Red Cell Distribution Width 16.2 H Sodium Level 140 White Blood Count 8.4 # Medications Medications Current Medications Aspirin (Halfprin) 81 mg DAILY PO Last administered on 06/10/16 09:17; Admin Dose 81 MG; Start 05/27/16 at 09:00 Clopidogrel Bisulfate (plaVIX) 75 mg DAILY PO Last administered on 06/10/16 09:18; Admin Dose 75 MG; Start 05/27/16 at 09:00 Ferrous Sulfate (Ferrous Sulfate (Ec)) 325 mg BID PO Last administered on 06/10 09:17; Admin Dose 325 MG; Start 05/27/16 at 09:00 Fluticasone Propionate (Flonase 0.05% Nasal) 1 spray BID NASAL Last administered on 06/10/16 09:15; Admin Dose 1 SPRAY; Start 05/27/16 at 09:00 Gabapentin (Neurontin) 300 mg TID PO Last administered on 06/10/16 09:15; Admin Dose 300 MG; Start 05/27/16 at 09:00 Guaifenesin/ Dextromethorphan (Robitussin Dm Liquid Cup) 10 ml Q4H PRN PO COUGH Last administered on 06/10/16 03:38; Admin Dose 10 ML; Start 05/26/16 at 21:30 Montelukast Sodium (Singulair) 10 mg HS PO Last administered on 06/09/16 20: 29; Admin Dose 10 MG; Start 12/14/16 at 21:00 Oxycodone/ Acetaminophen (Endocet (10/ 325)) 1 tab Q6 PRN PO PAIN; Start 05/26 at 21:30 Salmeterol Xinafoate/ Fluticasone (Advair 500/50 Diskus) 1 inh BID INH Last administered on 06/10/16at 09:15; Admin Dose 1 INH; Start 05/27/16 at 09:00 Acetaminophen (Tylenol Tab) 650 mg Q4H PRN PO pain/fever; Start 05/26/16 at 21 :30 Ondansetron HCl (Zofran Inj) 4 mg Q4H PRN IV nausea Last administered on at 17:32; Admin Dose 4 MG; Start 05/26/16 at 21:30 Guaifenesin/ Dextromethorphan (Mucinex Dm) 1 tab BID PO Last administered on at 09:16; Admin Dose 1 TAB; Start 05/27/16 at 09:00 Fish Oil (Fish Oil) 1,000 mg DAILY PO Last administered on 06/10/16at 09:16; Admin Dose 1,000 MG; Start 05/27/16 at 09:00 Atorvastatin Calcium (Lipitor) 80 mg DAILY@21 PO Last administered on at 20:30; Admin Dose 80 MG; Start 05/27/16 at 00:00 Tramadol HCl (Ultram) 50 mg Q6H PRN PO PAIN Last administered on 06/09/16at 17: 31; Admin Dose 50 MG; Start 05/27/16 at 14:00 Miscellaneous Information 1 ea NOTE XX ; Start 05/27/16 at 18:30 Glucose (Glutose) 15 gm Q15M PRN PO DECREASED GLUCOSE; Start 05/27/16 at 18:30 Glucose (Glutose) 22.5 gm Q15M PRN PO DECREASED GLUCOSE; Start 05/27/16 at 18: 30 Dextrose (D50w Syringe) 25 ml Q15M PRN IV DECREASED GLUCOSE; Start 05/27/16 at 18:30 Dextrose (D50w Syringe) 50 ml Q15M PRN IV DECREASED GLUCOSE; Start 05/27/16 at 18:30 Glucagon (Glucagen) 1 mg Q15M PRN IM DECREASED GLUCOSE; Start 05/27/16 at 18: 30 Glucose (Glutose) 15 gm Q15M PRN BUCCAL DECREASED GLUCOSE; Start 05/27/16 at 18:30 IV Flush (NS 10 ml) 10 ml PRN PRN IV IV PROTOCOL; Start 05/28/16 at 17:30 Prednisone (Prednisone) 40 mg DAILY PO Last administered on 06/10/16 09:18; Admin Dose 40 MG; Start 05/30/16 at 09:00 Morphine Sulfate (morphine) 1 mg Q4H PRN IV PAIN Last administered on 09:18; Admin Dose 1 MG; Start 06/01/16 at 09:30 Docusate Sodium (Colace) 100 mg BID PO Last administered on 06/10/16 09:15; Admin Dose 100 MG; Start 06/01/16 at 21:00 Senna (Senokot) 1 tab BID PRN PO CONSTIPATION Last administered on 06/09/16 20:29; Admin Dose 1 TAB; Start 06/01/16 at 18:30 Digoxin (Digoxin) 0.125 mg DAILY@13 PO Last administered on 06/06/16at 13:34; Admin Dose 0.125 MG; Start 06/06/16 at 13:00; Status Future Hold Amiodarone HCl (Cordarone) 200 mg DAILY PO Last administered on 06/10/16 09: 18; Admin Dose 200 MG; Start 06/07/16 at 09:00 Acetylcysteine (Nac) 600 mg BID PO Last administered on 06/10/16 09:16; Admin Dose 600 MG; Start 06/08/16 at 11:00 Enoxaparin Sodium (Lovenox) 80 mg BID SC Last administered on 06/10/16at 09:35 ; Admin Dose 80 MG; Start 06/09/16 at 21:00 Furosemide (Lasix) 40 mg DAILY PO Last administered on 06/10/16 09:16; Admin Dose 40 MG; Start 06/10/16 at 09:00 Metoprolol Tartrate 50 mg 50 mg BID PO ; Start 06/10/16 at 21:00; Status UNV Potassium Phosphate/Sodium Chloride (K Phos (Meq)/NS) 254.5455 ml @ 63.636 m... ONCE ONCE IVPB ; Start 06/10/16 at 12:30; Stop 06/10/16 at 16:29; Status UNV Calos Peralta DO Jun 10, 2016 12:43
[2016-06-10] MEDS ORDERED: POTASSIUM PHOSPHATE 20 MEQ in SOD CHLORIDE 0.9% 250 ML IVPB ONE (14:00)
[2016-06-10] MEDS: ATORVASTATIN 80 MG TAB PO SCH (21:23)
[2016-06-10] MEDS: MONTELUKAST 10 MG TAB PO SCH (21:23)
[2016-06-10] MEDS: traMADol 50 MG TAB PO PRN (23:42)
--- NOTE | 2016-06-10 23:58 | PN ---
Date/Time of Note Date/Time of Note DATE: 06/10/16 TIME: 23:58 Assessment/Plan VTE Prophylaxis VTE Prophylaxis Intervention: SCD's Lines/Catheters IV Catheter Type (from Nrsg): PICC Line Central line still needed: Yes (critically ill patient) Urinary Cath still in place: No Assessment/Plan Assessment/Plan [facility] 1. 80 yo man with leukocytosis until yesterday; resolved today at 8.3k/ul. CXR yesterday with no infiltrates. Urine positive for enterococcus yesterday, and one blood culture positive for GPC in clusters. * Pacer placement postponed while being evaluated/treated for infection * Many experts favor deferring antimicrobial therapy for enterococcal bacteremia in the setting of a single positive blood culture in the absence of clinical evidence for sepsis, and Mr. Roach remains afebrile with now-normal WBC count. Removal of the contaminated Artega[place] may be treatment enough. 2. NSTEMI s/p TAVR and with cardiomyopathy, troponin up to 13, s/p PTCA with stent to the circumflex coronary artery. 3. s/p cardioversion for atrial fibrillation four days ago; back in Afib 3 days ago, then converted spontaneously back to sinus rhythm two days ago on amiodarone. Echo shows EF 30%. * Contine on 3L oxygen per NC * Diuresis as needed * Continue ASA and Plavix * Continue Lopressor 4. COPD, O2 dependent: on 3L NC currently and BiPAP PRN * Continue prednisone 40 mg qAM * Nebulizer treatment; continue Advair and Spiriva 5. Acute on chronic kidney disease, now apparently back to baseline 6. S/p accidental fall weekend prior to admission with RLE Hematoma and RUE ecchymosis and right rib fractures * Pain control with Percocet prn and Tramadol PRN * Hb stable and CT right LE noted. Continue to monitor 7. Chronic back pain with acute component now with rib fractures * Percocet and tramadol prn 8. Hypertension * Hold Diovan for hypotension 9. H/o temporal arteritis. No clear evidence of active disease, but currently treated with prednisone. 10. Previous transient ischemic attack. Patient's mental status is stable and at baseline. 11. Prophylaxis: SCDs as tolerated, Protonix for GI protection while on steroids 12. Disposition: Plan for Biventricular pacer +/- ICD once cultures are negative. Jose Welch MD PhD [phone] Subjective 24 Hr Interval Summary Free Text/Dictation Sleeping soundly. Spoke with his partner christopher, who is staying overnight. Exam/Review of Systems Vital Signs Vitals Vital Signs Date Time Temp Pulse Resp B/P Pulse Ox O2 Delivery O2 Flow Rate FiO2 06/10/16 23:19 97.7 53 18 131/60 97 06/10/16 19:59 3.0 06/10/16 19:57 Nasal Cannula Intake and Output 06/09/16 06/09/16 06/10/16 15:00 23:00 07:00 Intake Total 720 ml 120 ml Output Total 1400 ml 675 ml Balance -680 ml -555 ml Exam Cardiac rhythm regular, jason to 48. Respiratory status: breathing comfortably. Abd non-distended. SCDs in place. Results Result Diagram: 06/10/16 0610 06/10/16 0610 Results 24 hrs Laboratory Tests Test 06/10/16 06:10 06/10/16 07:42 06/10/16 12:09 06/10/16 17:20 Anion Gap 9 Basophils # 0.0 Basophils % 0.6 Blood Morphology Comment Blood Urea Nitrogen 27 H Calcium Level 7.7 L Carbon Dioxide Level 35 H Chloride Level 99 Creatinine 0.97 Eosinophils # 0.2 Eosinophils % 3.0 Glucose Level 80 Hematocrit 30.9 L Hemoglobin 10.2 L Lymphocytes # 1.4 Lymphocytes % 16.6 Magnesium Level 2.0 Mean Corpuscular Hemoglobin 32.1 Mean Corpuscular Hemoglobin Concent 32.9 Mean Corpuscular Volume 97.5 Mean Platelet Volume 8.9 Monocytes # 0.4 Monocytes % 4.6 Neutrophils # 6.3 Neutrophils % 75.2 Nucleated Red Blood Cells # 0.0 Nucleated Red Blood Cells % 0.0 Phosphorus Level 1.9 L Platelet Count 201 Potassium Level 3.3 L Red Blood Count 3.17 L Red Cell Distribution Width 16.2 H Sodium Level 140 White Blood Count 8.4 # Bedside Glucose 85 134 225 H Test 06/10/16 21:26 Bedside Glucose 186 Medications Medications Current Medications Aspirin (Halfprin) 81 mg DAILY PO Last administered on 06/10/16at 09:17; Admin Dose 81 MG; Start 05/27/16 at 09:00 Clopidogrel Bisulfate (plaVIX) 75 mg DAILY PO Last administered on 06/10/16 09:18; Admin Dose 75 MG; Start 05/27/16 at 09:00 Ferrous Sulfate (Ferrous Sulfate (Ec)) 325 mg BID PO Last administered on 06/10 21:23; Admin Dose 325 MG; Start 05/27/16 at 09:00 Fluticasone Propionate (Flonase 0.05% Nasal) 1 spray BID NASAL Last administered on 06/10/16 21:22; Admin Dose 1 SPRAY; Start 05/27/16 at 09:00 Gabapentin (Neurontin) 300 mg TID PO Last administered on 06/10/16 21:23; Admin Dose 300 MG; Start 05/27/16 at 09:00 Guaifenesin/ Dextromethorphan (Robitussin Dm Liquid Cup) 10 ml Q4H PRN PO COUGH Last administered on 06/10/16 13:02; Admin Dose 10 ML; Start 05/26/16 at 21:30 Montelukast Sodium (Singulair) 10 mg HS PO Last administered on 06/10/16 21: 23; Admin Dose 10 MG; Start 05/27/16 at 21:00 Oxycodone/ Acetaminophen (Endocet (10/ 325)) 1 tab Q6 PRN PO PAIN; Start 05/26 at 21:30 Salmeterol Xinafoate/ Fluticasone (Advair 500/50 Diskus) 1 inh BID INH Last administered on 06/10/16 21:22; Admin Dose 1 INH; Start 05/27/16 at 09:00 Acetaminophen (Tylenol Tab) 650 mg Q4H PRN PO pain/fever; Start 05/26/16 at 21 :30 Ondansetron HCl (Zofran Inj) 4 mg Q4H PRN IV nausea Last administered on 17:32; Admin Dose 4 MG; Start 05/26/16 at 21:30 Guaifenesin/ Dextromethorphan (Mucinex Dm) 1 tab BID PO Last administered on 22:17; Admin Dose 1 TAB; Start 05/27/16 at 09:00 Fish Oil (Fish Oil) 1,000 mg DAILY PO Last administered on 06/10/16 09:16; Admin Dose 1,000 MG; Start 05/27/16 at 09:00 Atorvastatin Calcium (Lipitor) 80 mg DAILY@21 PO Last administered on at 21:23; Admin Dose 80 MG; Start 05/27/16 at 00:00 Tramadol HCl (Ultram) 50 mg Q6H PRN PO PAIN Last administered on 06/10/16at 23: 42; Admin Dose 50 MG; Start 05/27/16 at 14:00 Miscellaneous Information 1 ea NOTE XX ; Start 05/27/16 at 18:30 Glucose (Glutose) 15 gm Q15M PRN PO DECREASED GLUCOSE; Start 05/27/16 at 18:30 Glucose (Glutose) 22.5 gm Q15M PRN PO DECREASED GLUCOSE; Start 05/27/16 at 18: 30 Dextrose (D50w Syringe) 25 ml Q15M PRN IV DECREASED GLUCOSE; Start 05/27/16 at 18:30 Dextrose (D50w Syringe) 50 ml Q15M PRN IV DECREASED GLUCOSE; Start 05/27/16 at 18:30 Glucagon (Glucagen) 1 mg Q15M PRN IM DECREASED GLUCOSE; Start 05/27/16 at 18: 30 Glucose (Glutose) 15 gm Q15M PRN BUCCAL DECREASED GLUCOSE; Start 05/27/16 at 18:30 IV Flush (NS 10 ml) 10 ml PRN PRN IV IV PROTOCOL; Start 05/28/16 at 17:30 Prednisone (Prednisone) 40 mg DAILY PO Last administered on 06/10/16at 09:18; Admin Dose 40 MG; Start 05/30/16 at 09:00 Morphine Sulfate (morphine) 1 mg Q4H PRN IV PAIN Last administered on at 21:46; Admin Dose 1 MG; Start 06/01/16 at 09:30 Docusate Sodium (Colace) 100 mg BID PO Last administered on 06/10/16at 21:22; Admin Dose 100 MG; Start 06/01/16 at 21:00 Senna (Senokot) 1 tab BID PRN PO CONSTIPATION Last administered on 06/09/16at 20:29; Admin Dose 1 TAB; Start 06/01/16 at 18:30 Digoxin (Digoxin) 0.125 mg DAILY@13 PO Last administered on 06/06/16at 13:34; Admin Dose 0.125 MG; Start 06/06/16 at 13:00; Status Future Hold Amiodarone HCl (Cordarone) 200 mg DAILY PO Last administered on 06/10/16 09: 18; Admin Dose 200 MG; Start 06/07/16 at 09:00 Acetylcysteine (Nac) 600 mg BID PO Last administered on 06/10/16 21:23; Admin Dose 600 MG; Start 06/08/16 at 11:00 Enoxaparin Sodium (Lovenox) 80 mg BID SC Last administered on 06/10/16 21:45 ; Admin Dose 80 MG; Start 06/09/16 at 21:00 Furosemide (Lasix) 40 mg DAILY PO Last administered on 06/10/16 09:16; Admin Dose 40 MG; Start 06/10/16 at 09:00 Metoprolol Tartrate (Lopressor) 50 mg BID PO Last administered on 06/10/16 21 :24; Admin Dose 50 MG; Start 06/10/16 at 21:00 JOAQUIN WELCH M.D. Jun 10, 2016 23:58 administered on 06/10/16 21:22; Admin Dose 1 INH; Start 05/27/16 at 09:00 Acetaminophen (Tylenol Tab) 650 mg Q4H PRN PO pain/fever; Start 05/26/16 at 21 :30 Ondansetron HCl (Zofran Inj) 4 mg Q4H PRN IV nausea Last administered on 17:32; Admin Dose 4 MG; Start 05/26/16 at 21:30 Guaifenesin/ Dextromethorphan (Mucinex Dm) 1 tab BID PO Last administered on 22:17; Admin Dose 1 TAB; Start 05/27/16 at 09:00 Fish Oil (Fish Oil) 1,000 mg DAILY PO Last administered on 06/10/16 09:16; Admin Dose 1,000 MG; Start 05/27/16 at 09:00 Atorvastatin Calcium (Lipitor) 80 mg DAILY@21 PO Last administered on 21:23; Admin Dose 80 MG; Start 05/27/16 at 00:00 Tramadol HCl (Ultram) 50 mg Q6H PRN PO PAIN Last administered on 06/10/16 23: 42; Admin Dose 50 MG; Start 05/27/16 at 14:00 Miscellaneous Information 1 ea NOTE XX ; Start 05/27/16 at 18:30 Glucose (Glutose) 15 gm Q15M PRN PO DECREASED GLUCOSE; Start 05/27/16 at 18:30 Glucose (Glutose) 22.5 gm Q15M PRN PO DECREASED GLUCOSE; Start 05/27/16 at 18: 30 Dextrose (D50w Syringe) 25 ml Q15M PRN IV DECREASED GLUCOSE; Start 05/27/16 at 18:30 Dextrose (D50w Syringe) 50 ml Q15M PRN IV DECREASED GLUCOSE; Start 05/27/16 at 18:30 Glucagon (Glucagen) 1 mg Q15M PRN IM DECREASED GLUCOSE; Start 05/27/16 at 18: 30 Glucose (Glutose) 15 gm Q15M PRN BUCCAL DECREASED GLUCOSE; Start 05/27/16 at 18:30 IV Flush (NS 10 ml) 10 ml PRN PRN IV IV PROTOCOL; Start 05/28/16 at 17:30 Prednisone (Prednisone) 40 mg DAILY PO Last administered on 06/10/16at 09:18; Admin Dose 40 MG; Start 05/30/16 at 09:00 Morphine Sulfate (morphine) 1 mg Q4H PRN IV PAIN Last administered on at 21:46; Admin Dose 1 MG; Start 06/01/16 at 09:30 Docusate Sodium (Colace) 100 mg BID PO Last administered on 06/10/16at 21:22; Admin Dose 100 MG; Start 06/01/16 at 21:00 Senna (Senokot) 1 tab BID PRN PO CONSTIPATION Last administered on 06/09/16at 20:29; Admin Dose 1 TAB; Start 06/01/16 at 18:30 Digoxin (Digoxin) 0.125 mg DAILY@13 PO Last administered on 06/06/16at 13:34; Admin Dose 0.125 MG; Start 06/06/16 at 13:00; Status Future Hold Amiodarone HCl (Cordarone) 200 mg DAILY PO Last administered on 06/10/16at 09: 18; Admin Dose 200 MG; Start 06/07/16 at 09:00 Acetylcysteine (Nac) 600 mg BID PO Last administered on 06/10/16at 21:23; Admin Dose 600 MG; Start 06/08/16 at 11:00 Enoxaparin Sodium (Lovenox) 80 mg BID SC Last administered on 06/10/16at 21:45 ; Admin Dose 80 MG; Start 06/09/16 at 21:00 Furosemide (Lasix) 40 mg DAILY PO Last administered on 06/10/16at 09:16; Admin Dose 40 MG; Start 06/10/16 at 09:00 Metoprolol Tartrate (Lopressor) 50 mg BID PO Last administered on 06/10/16at 21 :24; Admin Dose 50 MG; Start 06/10/16 at 21:00 JOAQUIN WELCH M.D. Jun 10, 2016 23:58
[2016-06-11] VITALS (13 sets, daily range): BP systolic 119–137; BP diastolic 55–71; PULSE 50–125; RESP 18–19
[2016-06-11] MEDS: ALBUTEROL/IPRATROPIUM (NEB) 3 ML AMP HHN SCH ×4 (01:01→19:53)
[2016-06-11] MEDS: INSULIN ASPART [NOVOLOG] 3 ML PEN SC SCH ×4 (07:55→21:01)
[2016-06-11] MEDS: ENOXAPARIN 80 MG/0.8 ML SYG SC SCH ×3 (09:00→21:06)
[2016-06-11] MEDS: GABAPENTIN 300 MG CAP PO SCH ×3 (09:36→20:55)
[2016-06-11] MEDS: predniSONE 20 MG TAB PO SCH (09:36)
[2016-06-11] MEDS: GUAIFENESIN/DM 5ML CUP PO PRN ×2 (09:36→14:48)
[2016-06-11] MEDS: DOCUSATE SODIUM 100 MG CAP PO SCH ×2 (09:36→20:54)
[2016-06-11] MEDS: GUAIFENESIN/DM (SR) TAB PO SCH ×2 (09:36→20:57)
[2016-06-11] MEDS: ACETYLCYSTEINE 600 MG CAP PO SCH ×2 (09:36→20:55)
[2016-06-11] MEDS: FERROUS SULFATE (EC) 325 MG TAB PO SCH ×2 (09:36→20:54)
[2016-06-11] MEDS: FISH OIL 1,000 MG CAP PO SCH (09:37)
[2016-06-11] MEDS: AMIODARONE 200 MG TAB PO SCH (09:37)
[2016-06-11] MEDS: FUROSEMIDE 40 MG TAB PO SCH (09:38)
[2016-06-11] MEDS: SALMETEROL/FLUTICASONE 500/50 INHA INH SCH ×2 (09:39→21:00)
[2016-06-11] MEDS: METOPROLOL 50 MG TAB PO SCH ×2 (09:39→20:57)
[2016-06-11] MEDS: FLUTICASONE 0.05% 16 GM NAS SPRAY NASAL SCH ×2 (09:39→20:54)
[2016-06-11] MEDS: morphine 2 MG INJ IV PRN (15:00)
--- NOTE | 2016-06-11 15:48 | CONS ---
Date/Time of Note Date/Time of Note DATE: 06/11/16 TIME: 15:46 Consult Date/Type/Reason Admit Date/Time May 26, 2016 at 19:17 Initial Consult Date 05/28/16 Type of Consultation: pulmonary Subjective Stable post cardiac catheterization Objective Vital Signs Date Time Temp Pulse Resp B/P Pulse Ox O2 Delivery O2 Flow Rate FiO2 06/11/16 15:33 99.0 8 18 129/58 95 06/11/16 10:45 Nasal Cannula 3.0 Intake and Output 06/10/16 06/10/16 06/11/16 14:59 22:59 06:59 Intake Total 1200 ml 350 ml Output Total 1250 ml 550 ml Balance -50 ml -200 ml GENERAL: Elderly gentleman awake alert oriented comfortable at rest VITAL SIGNS: per chart NECK: Supple. No JVD or lymphadenopathy. CARDIAC EXAM: S1, S2. No added sounds or murmurs. CHEST: clear bilaterally, No added sounds, rales or wheezes ABDOMEN: Soft, nontender. No guarding or rebound. EXTREMITIES: No cyanosis, clubbing or edema. NEUROLOGIC: Generalized weakness. No focal deficits. Results/Medications Result Diagram: 06/10/16 0610 06/10/16 0610 Results 24 hrs Laboratory Tests Test 06/10/16 17:20 06/10/16 21:26 06/11/16 07:43 06/11/16 12:25 Bedside Glucose 225 H 186 96 114 Medications Current Medications Aspirin (Halfprin) 81 mg DAILY PO Last administered on 06/10/16at 09:17; Admin Dose 81 MG; Start 05/27/16 at 09:00 Clopidogrel Bisulfate (plaVIX) 75 mg DAILY PO Last administered on 06/10/16at 09:18; Admin Dose 75 MG; Start 05/27/16 at 09:00 Ferrous Sulfate (Ferrous Sulfate (Ec)) 325 mg BID PO Last administered on 06/11at 09:36; Admin Dose 325 MG; Start 05/27/16 at 09:00 Fluticasone Propionate (Flonase 0.05% Nasal) 1 spray BID NASAL Last administered on 06/11/16at 09:39; Admin Dose 1 SPRAY; Start 05/27/16 at 09:00 Gabapentin (Neurontin) 300 mg TID PO Last administered on 06/11/16at 12:52; Admin Dose 300 MG; Start 05/27/16 at 09:00 Guaifenesin/ Dextromethorphan (Robitussin Dm Liquid Cup) 10 ml Q4H PRN PO COUGH Last administered on 06/11/16at 14:48; Admin Dose 10 ML; Start 05/26/16 at 21:30 Montelukast Sodium (Singulair) 10 mg HS PO Last administered on 06/10/16at 21: 23; Admin Dose 10 MG; Start 05/27/16 at 21:00 Oxycodone/ Acetaminophen (Endocet (10/ 325)) 1 tab Q6 PRN PO PAIN; Start 05/26 at 21:30 Salmeterol Xinafoate/ Fluticasone (Advair 500/50 Diskus) 1 inh BID INH Last administered on 06/11/16at 09:39; Admin Dose 1 INH; Start 05/27/16 at 09:00 Acetaminophen (Tylenol Tab) 650 mg Q4H PRN PO pain/fever; Start 05/26/16 at 21 :30 Ondansetron HCl (Zofran Inj) 4 mg Q4H PRN IV nausea Last administered on at 17:32; Admin Dose 4 MG; Start 05/26/16 at 21:30 Guaifenesin/ Dextromethorphan (Mucinex Dm) 1 tab BID PO Last administered on at 09:36; Admin Dose 1 TAB; Start 05/27/16 at 09:00 Fish Oil (Fish Oil) 1,000 mg DAILY PO Last administered on 06/11/16 09:37; Admin Dose 1,000 MG; Start 05/27/16 at 09:00 Atorvastatin Calcium (Lipitor) 80 mg DAILY@21 PO Last administered on at 21:23; Admin Dose 80 MG; Start 05/27/16 at 00:00 Tramadol HCl (Ultram) 50 mg Q6H PRN PO PAIN Last administered on 06/10/16 23: 42; Admin Dose 50 MG; Start 05/27/16 at 14:00 Miscellaneous Information 1 ea NOTE XX ; Start 05/27/16 at 18:30 Glucose (Glutose) 15 gm Q15M PRN PO DECREASED GLUCOSE; Start 05/27/16 at 18:30 Glucose (Glutose) 22.5 gm Q15M PRN PO DECREASED GLUCOSE; Start 05/27/16 at 18: 30 Dextrose (D50w Syringe) 25 ml Q15M PRN IV DECREASED GLUCOSE; Start 05/27/16 at 18:30 Dextrose (D50w Syringe) 50 ml Q15M PRN IV DECREASED GLUCOSE; Start 05/27/16 at 18:30 Glucagon (Glucagen) 1 mg Q15M PRN IM DECREASED GLUCOSE; Start 05/27/16 at 18: 30 Glucose (Glutose) 15 gm Q15M PRN BUCCAL DECREASED GLUCOSE; Start 05/27/16 at 18:30 IV Flush (NS 10 ml) 10 ml PRN PRN IV IV PROTOCOL; Start 05/28/16 at 17:30 Prednisone (Prednisone) 40 mg DAILY PO Last administered on 06/11/16 09:36; Admin Dose 40 MG; Start 05/30/16 at 09:00 Morphine Sulfate (morphine) 1 mg Q4H PRN IV PAIN Last administered on at 15:00; Admin Dose 1 MG; Start 06/01/16 at 09:30 Docusate Sodium (Colace) 100 mg BID PO Last administered on 06/11/16 09:36; Admin Dose 100 MG; Start 06/01/16 at 21:00 Senna (Senokot) 1 tab BID PRN PO CONSTIPATION Last administered on 06/09/16at 20:29; Admin Dose 1 TAB; Start 06/01/16 at 18:30 Digoxin (Digoxin) 0.125 mg DAILY@13 PO Last administered on 06/06/16 13:34; Admin Dose 0.125 MG; Start 06/06/16 at 13:00; Status Future Hold Amiodarone HCl (Cordarone) 200 mg DAILY PO Last administered on 06/11/16 09: 37; Admin Dose 200 MG; Start 06/07/16 at 09:00 Acetylcysteine (Nac) 600 mg BID PO Last administered on 06/11/16 09:36; Admin Dose 600 MG; Start 06/08/16 at 11:00 Enoxaparin Sodium (Lovenox) 80 mg BID SC Last administered on 06/11/16 15:15 ; Admin Dose 80 MG; Start 06/09/16 at 21:00 Furosemide (Lasix) 40 mg DAILY PO Last administered on 12/29/16at 09:38; Admin Dose 40 MG; Start 06/10/16 at 09:00 Metoprolol Tartrate (Lopressor) 50 mg BID PO Last administered on 06/11/16at 09 :39; Admin Dose 50 MG; Start 06/10/16 at 21:00 Assessment/Plan Chief Complaint/Hosp Course IMPRESSION AND PLAN: 1. Congestive cardiac failure. History of aortic stenosis status post aortic valve replacement cardiomyopathy with decreased ejection fraction. Status post cardiac catheterization 2. Possible chronic obstructive pulmonary disease exacerbation. Chronic hypoxemia on supplemental oxygen 3. Non-ST elevation SC. Status post cardiac catheterization found to have mild disease requiring medical management 4. Gentle diuresis. 5. Antibiotics for pneumonia 6. DVT and GI prophylaxis. 7. Paroxysmal atrial fibrillation with cardioversion performed in the past Plan 1. Diuresis if tolerated 2. Cardiac recommendations 3. Supplemental O2 as needed 4. DVT and GI prophylaxis Problems: SIOMARA GARZA MD, [facility] Jun 11, 2016 15:48
--- NOTE | 2016-06-11 17:26 | CONS ---
DATE OF ADMISSION: 05/26/2016 DATE OF CONSULTATION: 06/11/2016 TYPE OF CONSULTATION: Infectious disease. REASON FOR CONSULTATION: Antibiotic management. HISTORY OF PRESENT ILLNESS: Catracho Roach is a very pleasant 80-year-old white male with numerous p roblems who came in with general weakness and is being seen for antibiotic management. His past pro blems include: 1. COPD. 2. Hypertension. 3. Hyperlipidemia. 4. Transcatheter aortic valve replacement done approximately 15 months ago. Acutely the patient became extremely weak and unable to stand or walk. He fell, unable to get down the stairs and could not walk to his car. He had no chest pain, pressure, discomfort. He did have a cough and was complaining of coughing problems which were chronic for him. On admission, his white count was 14.4, H and H of 9.8 and 29.6, platelet count 288,000. His white count came down and curr ently is 8.4. His BUN and creatinine is 27/0.97, potassium 3.3 on the . His urine from the grew out nothing. He had trace leukocyte esterase, no white cells per high-power field, and he had s ome scanned laboratory reports which were not of great significance. Microbiology: He had enteroco ccus in his urine from the . Blood cultures, however, are all negative except for one for staph species. Chest x-ray on the shows a right arm PICC line, pulmonary edema, cardiomegaly, ather osclerosis, small bilateral pleural effusions. He has some degree of congestive heart failure which is straightforward. He was seen on the by Dr. Welch. Leukocytosis until yesterday, resolved. Urine positive for enterococcus, one blood culture positive for gram-positive cocci. The pacing p lacement was postponed while being evaluated and treated for infection. PAST MEDICAL HISTORY: Operations as outlined. FAMILY HISTORY: Noncontributory. SOCIAL HISTORY: He does not smoke, drink or abuse drugs. ALLERGIES: NONE TO PENICILLIN, SULFA OR FOODS. MEDICATIONS: Per chart. REVIEW OF SYSTEMS: As per HPI. PHYSICAL EXAMINATION: GENERAL: The patient is a very pleasant, elderly male who is alert, responsive, in no acute distres s. VITAL SIGNS: Stable. He is afebrile. SKIN: Without generalized rash. HEENT: Within normal limits. NECK: Supple. LYMPH NODES: None palpable. CHEST: Decreased breath sounds at the bases. HEART: Without murmur or gallop. ABDOMEN: Soft, nontender, nondistended, without hepatosplenomegaly or masses. EXTREMITIES: Without cyanosis, clubbing, or edema. RECTAL AND GENITAL: Deferred. NEUROLOGIC: No focal neurological abnormalities. IMPRESSION AND PLAN: The patient has positive blood culture, which may be just staph species and or staph epidermidis rather than Enterococcus. We will repeat blood cultures x2. If that is the case and the patient is on appropriate therapy for enterococcus, then there is no reason to postpone the pacemaker. Currently, he is not on anything for the enterococcus in his urine. He does have a Fol ey catheter in place. I will repeat blood cultures. If the blood cultures are negative, I would be at the enterococcus and eradicate it before putting in pacemaker. I want to thank Dr. Welch for asking me to see this [place] gentleman in consultation. PICC line is being pulled, a [place]te[place] catheter is being pulled. I will dictate my findings to Dr. Wan maynard. Dictated By: JAEL CHARLES MD, JD/LATISHA Conf#: [id number] DID#: [id number]
[2016-06-11] MEDS: ATORVASTATIN 80 MG TAB PO SCH (20:54)
[2016-06-11] MEDS: MONTELUKAST 10 MG TAB PO SCH (20:55)
--- NOTE | 2016-06-11 22:59 | CONS ---
Date/Time of Note Date/Time of Note DATE: 06/11/16 TIME: 22:56 Assessment/Plan Assessment/Plan Additional Assessment/Plan Non-ST elevation MT status post drug-eluting stenting to circumflex 06/01/2016 Respiratory Failure Acute Decompensated Systolic CHF, improving Paroxysmal atrial fibrillation/flutter Transient heart block Acute kidney injury, improving Cardiomyopathy ejection fraction 35% Aortic stenosis, status post transcatheter aortic valve replacement in January 2015. Chronic obstructive pulmonary disease on home oxygen. -pt undergoing ID eval for +blood cx, elevated WCC and +urine cx prior to PPM placement. BP stable, if renal fxn remains stable, will start sharon-i. Consultation Date/Type/Reason Admit Date/Time May 26, 2016 at 19:17 Type of Consultation: cv 24 HR Interval Summary Free Text/Dictation no sob,cp,palpitations Exam/Review of Systems Vital Signs Vitals Vital Signs Date Time Temp Pulse Resp B/P Pulse Ox O2 Delivery O2 Flow Rate FiO2 06/11/16 20:26 60 06/11/16 20:14 98.3 18 119/55 96 06/11/16 19:59 3.0 06/11/16 19:54 Nasal Cannula Intake and Output 06/10/16 06/10/16 06/11/16 15:00 23:00 07:00 Intake Total 1200 ml 350 ml Output Total 1250 ml 550 ml Balance -50 ml -200 ml Exam Constitutional: alert, oriented Head: normocephalic Neck: supple Respiratory: other (course bs, scattered rhonchi) Cardiovascular: other (s1s2), regular rate and rhythm, systolic murmur Gastrointestinal: bowel sounds, non-tender, soft Extremities: edema (trace) Results Result Diagram: 06/10/16 0610 06/10/16 0610 Results 24 hrs Laboratory Tests Test 06/11/16 07:43 06/11/16 12:25 06/11/16 17:48 06/11/16 20:52 Bedside Glucose 96 114 193 221 H Medications Medications Current Medications Aspirin (Halfprin) 81 mg DAILY PO Last administered on 06/10/16at 09:17; Admin Dose 81 MG; Start 05/27/16 at 09:00 Clopidogrel Bisulfate (plaVIX) 75 mg DAILY PO Last administered on 06/10/16at 09:18; Admin Dose 75 MG; Start 05/27/16 at 09:00 Ferrous Sulfate (Ferrous Sulfate (Ec)) 325 mg BID PO Last administered on 06/11 20:54; Admin Dose 325 MG; Start 05/27/16 at 09:00 Fluticasone Propionate (Flonase 0.05% Nasal) 1 spray BID NASAL Last administered on 06/11/16 20:54; Admin Dose 1 SPRAY; Start 05/27/16 at 09:00 Gabapentin (Neurontin) 300 mg TID PO Last administered on 06/11/16 20:55; Admin Dose 300 MG; Start 05/27/16 at 09:00 Guaifenesin/ Dextromethorphan (Robitussin Dm Liquid Cup) 10 ml Q4H PRN PO COUGH Last administered on 06/11/16 14:48; Admin Dose 10 ML; Start 05/26/16 at 21:30 Montelukast Sodium (Singulair) 10 mg HS PO Last administered on 06/11/16 20: 55; Admin Dose 10 MG; Start 05/27/16 at 21:00 Oxycodone/ Acetaminophen (Endocet (10/ 325)) 1 tab Q6 PRN PO PAIN; Start 05/26 at 21:30 Salmeterol Xinafoate/ Fluticasone (Advair 500/50 Diskus) 1 inh BID INH Last administered on 06/11/16 09:39; Admin Dose 1 INH; Start 05/27/16 at 09:00 Acetaminophen (Tylenol Tab) 650 mg Q4H PRN PO pain/fever; Start 05/26/16 at 21 :30 Ondansetron HCl (Zofran Inj) 4 mg Q4H PRN IV nausea Last administered on 17:32; Admin Dose 4 MG; Start 05/26/16 at 21:30 Guaifenesin/ Dextromethorphan (Mucinex Dm) 1 tab BID PO Last administered on 20:57; Admin Dose 1 TAB; Start 05/27/16 at 09:00 Fish Oil (Fish Oil) 1,000 mg DAILY PO Last administered on 06/11/16 09:37; Admin Dose 1,000 MG; Start 05/27/16 at 09:00 Atorvastatin Calcium (Lipitor) 80 mg DAILY@21 PO Last administered on 12/29/ 16at 20:54; Admin Dose 80 MG; Start 05/27/16 at 00:00 Tramadol HCl (Ultram) 50 mg Q6H PRN PO PAIN Last administered on 06/10/16at 23: 42; Admin Dose 50 MG; Start 05/27/16 at 14:00 Miscellaneous Information 1 ea NOTE XX ; Start 05/27/16 at 18:30 Glucose (Glutose) 15 gm Q15M PRN PO DECREASED GLUCOSE; Start 05/27/16 at 18:30 Glucose (Glutose) 22.5 gm Q15M PRN PO DECREASED GLUCOSE; Start 05/27/16 at 18: 30 Dextrose (D50w Syringe) 25 ml Q15M PRN IV DECREASED GLUCOSE; Start 05/27/16 at 18:30 Dextrose (D50w Syringe) 50 ml Q15M PRN IV DECREASED GLUCOSE; Start 05/27/16 at 18:30 Glucagon (Glucagen) 1 mg Q15M PRN IM DECREASED GLUCOSE; Start 05/27/16 at 18: 30 Glucose (Glutose) 15 gm Q15M PRN BUCCAL DECREASED GLUCOSE; Start 05/27/16 at 18:30 IV Flush (NS 10 ml) 10 ml PRN PRN IV IV PROTOCOL; Start 05/28/16 at 17:30 Prednisone (Prednisone) 40 mg DAILY PO Last administered on 06/11/16at 09:36; Admin Dose 40 MG; Start 05/30/16 at 09:00 Morphine Sulfate (morphine) 1 mg Q4H PRN IV PAIN Last administered on at 15:00; Admin Dose 1 MG; Start 06/01/16 at 09:30 Docusate Sodium (Colace) 100 mg BID PO Last administered on 06/11/16at 20:54; Admin Dose 100 MG; Start 06/01/16 at 21:00 Senna (Senokot) 1 tab BID PRN PO CONSTIPATION Last administered on 06/09/16 20:29; Admin Dose 1 TAB; Start 06/01/16 at 18:30 Digoxin (Digoxin) 0.125 mg DAILY@13 PO Last administered on 06/06/16 13:34; Admin Dose 0.125 MG; Start 06/06/16 at 13:00; Status Future Hold Amiodarone HCl (Cordarone) 200 mg DAILY PO Last administered on 12/29/16at 09: 37; Admin Dose 200 MG; Start 06/07/16 at 09:00 Acetylcysteine (Nac) 600 mg BID PO Last administered on 06/11/16 20:55; Admin Dose 600 MG; Start 06/08/16 at 11:00 Enoxaparin Sodium (Lovenox) 80 mg BID SC Last administered on 06/11/16 21:06 ; Admin Dose 80 MG; Start 06/09/16 at 21:00 Furosemide (Lasix) 40 mg DAILY PO Last administered on 06/11/16 09:38; Admin Dose 40 MG; Start 06/10/16 at 09:00 Metoprolol Tartrate (Lopressor) 50 mg BID PO Last administered on 06/11/16 20 :57; Admin Dose 50 MG; Start 06/10/16 at 21:00 Calos Peralta DO Jun 11, 2016 22:59
--- NOTE | 2016-06-11 23:40 | PN ---
Date/Time of Note Date/Time of Note DATE: 06/11/16 TIME: 23:39 Assessment/Plan VTE Prophylaxis VTE Prophylaxis Intervention: SCD's Lines/Catheters IV Catheter Type (from Nrsg): Peripheral IV Urinary Cath still in place: No Assessment/Plan Assessment/Plan [facility] 1. Hospital day 16 for this 80-year-old man with leukocytosis until the normal value of 8.3k/ul yesterday. Portable CXR showed no infiltrates. Urine positive for enterococcus yesterday, and one blood culture positive for Staph species. Discussed with Dr. Peralta and Dr. Stan Woods (ID) * PICC line and Arteaga removed * Additional blood cultures collected this evening. * Pacer placement postponed until contamination issue is adequately resolved 2. NSTEMI s/p TAVR and with cardiomyopathy, troponin up to 13, s/p PTCA with stent to the circumflex coronary artery. 3. s/p cardioversion for atrial fibrillation four days ago; back in Afib 3 days ago, then converted spontaneously back to sinus rhythm two days ago on amiodarone. Echo shows EF 30%. * Contine on 3L oxygen per NC * Diuresis as needed * Continue ASA and Plavix * Continue Lopressor 4. COPD, O2 dependent: on 3L NC currently and BiPAP PRN * Continue prednisone 40 mg qAM * Nebulizer treatment; continue Advair and Spiriva 5. Acute on chronic kidney disease, now apparently back to baseline 6. S/p accidental fall weekend prior to admission with RLE Hematoma and RUE ecchymosis and right rib fractures * Pain control with Percocet prn and Tramadol PRN * Hb stable and CT right LE noted. Continue to monitor 7. Chronic back pain with acute component now with rib fractures * Percocet and tramadol prn 8. Hypertension * Hold Diovan for hypotension 9. H/o temporal arteritis. No clear evidence of active disease, but currently treated with prednisone. 10. Previous transient ischemic attack. Patient's mental status is stable and at baseline. 11. Prophylaxis: SCDs as tolerated, Protonix for GI protection while on steroids 12. Disposition: Plan for Biventricular pacer +/- ICD once cultures are negative. Jose Welch MD PhD [phone] Subjective 24 Hr Interval Summary Free Text/Dictation Feeling quite comfortable today. Up walking with PT stably. Only mild discomfort at site of his rib fractures. Partner Yoel stayed over and was with him tonight. Exam/Review of Systems Vital Signs Vitals Vital Signs Date Time Temp Pulse Resp B/P Pulse Ox O2 Delivery O2 Flow Rate FiO2 06/11/16 23:19 97.7 56 18 137/64 98 06/11/16 19:59 3.0 06/11/16 19:54 Nasal Cannula Intake and Output 06/10/16 06/10/16 06/11/16 15:00 23:00 07:00 Intake Total 1200 ml 350 ml Output Total 1250 ml 550 ml Balance -50 ml -200 ml Exam Constitutional: Better color, breathing comfortably on NC 3L. Respiratory: Light crackles at bases. No rub. Persistent diminished breath sounds at bases bilaterally, but no dullness. Cardiovascular: Symmetric pulses, regular rate and rhythm Gastrointestinal: non-tender, soft, no hepatosplenomegaly. Musculoskeletal: Large hematoma right leg, with mild lateral tenderness. Extremities: Symmetric pulses 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: COLOR ARTIST II-XII intact, nl mental status, nl speech. Calm affect. Results Result Diagram: 06/10/16 0610 06/10/16 0610 Results 24 hrs Laboratory Tests Test 06/11/16 07:43 06/11/16 12:25 06/11/16 17:48 06/11/16 20:52 Bedside Glucose 96 114 193 221 H Medications Medications Current Medications Aspirin (Halfprin) 81 mg DAILY PO Last administered on 06/10/16at 09:17; Admin Dose 81 MG; Start 05/27/16 at 09:00 Clopidogrel Bisulfate (plaVIX) 75 mg DAILY PO Last administered on 06/10/16at 09:18; Admin Dose 75 MG; Start 05/27/16 at 09:00 Ferrous Sulfate (Ferrous Sulfate (Ec)) 325 mg BID PO Last administered on 06/11at 20:54; Admin Dose 325 MG; Start 05/27/16 at 09:00 Fluticasone Propionate (Flonase 0.05% Nasal) 1 spray BID NASAL Last administered on 06/11/16at 20:54; Admin Dose 1 SPRAY; Start 05/27/16 at 09:00 Gabapentin (Neurontin) 300 mg TID PO Last administered on 06/11/16at 20:55; Admin Dose 300 MG; Start 05/27/16 at 09:00 Guaifenesin/ Dextromethorphan (Robitussin Dm Liquid Cup) 10 ml Q4H PRN PO COUGH Last administered on 06/11/16 14:48; Admin Dose 10 ML; Start 05/26/16 at 21:30 Montelukast Sodium (Singulair) 10 mg HS PO Last administered on 06/11/16 20: 55; Admin Dose 10 MG; Start 05/27/16 at 21:00 Oxycodone/ Acetaminophen (Endocet (10/ 325)) 1 tab Q6 PRN PO PAIN; Start 05/26 at 21:30 Salmeterol Xinafoate/ Fluticasone (Advair 500/50 Diskus) 1 inh BID INH Last administered on 06/11/16 09:39; Admin Dose 1 INH; Start 05/27/16 at 09:00 Acetaminophen (Tylenol Tab) 650 mg Q4H PRN PO pain/fever; Start 05/26/16 at 21 :30 Ondansetron HCl (Zofran Inj) 4 mg Q4H PRN IV nausea Last administered on at 17:32; Admin Dose 4 MG; Start 05/26/16 at 21:30 Guaifenesin/ Dextromethorphan (Mucinex Dm) 1 tab BID PO Last administered on 20:57; Admin Dose 1 TAB; Start 05/27/16 at 09:00 Fish Oil (Fish Oil) 1,000 mg DAILY PO Last administered on 06/11/16 09:37; Admin Dose 1,000 MG; Start 05/27/16 at 09:00 Atorvastatin Calcium (Lipitor) 80 mg DAILY@21 PO Last administered on 20:54; Admin Dose 80 MG; Start 05/27/16 at 00:00 Tramadol HCl (Ultram) 50 mg Q6H PRN PO PAIN Last administered on 06/10/16 23: 42; Admin Dose 50 MG; Start 05/27/16 at 14:00 Miscellaneous Information 1 ea NOTE XX ; Start 05/27/16 at 18:30 Glucose (Glutose) 15 gm Q15M PRN PO DECREASED GLUCOSE; Start 05/27/16 at 18:30 Glucose (Glutose) 22.5 gm Q15M PRN PO DECREASED GLUCOSE; Start 05/27/16 at 18: 30 Dextrose (D50w Syringe) 25 ml Q15M PRN IV DECREASED GLUCOSE; Start 05/27/16 at 18:30 Dextrose (D50w Syringe) 50 ml Q15M PRN IV DECREASED GLUCOSE; Start 05/27/16 at 18:30 Glucagon (Glucagen) 1 mg Q15M PRN IM DECREASED GLUCOSE; Start 05/27/16 at 18: 30 Glucose (Glutose) 15 gm Q15M PRN BUCCAL DECREASED GLUCOSE; Start 05/27/16 at 18:30 IV Flush (NS 10 ml) 10 ml PRN PRN IV IV PROTOCOL; Start 05/28/16 at 17:30 Prednisone (Prednisone) 40 mg DAILY PO Last administered on 06/11/16at 09:36; Admin Dose 40 MG; Start 05/30/16 at 09:00 Morphine Sulfate (morphine) 1 mg Q4H PRN IV PAIN Last administered on at 15:00; Admin Dose 1 MG; Start 06/01/16 at 09:30 Docusate Sodium (Colace) 100 mg BID PO Last administered on 06/11/16 20:54; Admin Dose 100 MG; Start 06/01/16 at 21:00 Senna (Senokot) 1 tab BID PRN PO CONSTIPATION Last administered on 06/09/16at 20:29; Admin Dose 1 TAB; Start 06/01/16 at 18:30 Digoxin (Digoxin) 0.125 mg DAILY@13 PO Last administered on 06/06/16 13:34; Admin Dose 0.125 MG; Start 06/06/16 at 13:00; Status Future Hold Amiodarone HCl (Cordarone) 200 mg DAILY PO Last administered on 06/11/16 09: 37; Admin Dose 200 MG; Start 06/07/16 at 09:00 Acetylcysteine (Nac) 600 mg BID PO Last administered on 06/11/16 20:55; Admin Dose 600 MG; Start 06/08/16 at 11:00 Enoxaparin Sodium (Lovenox) 80 mg BID SC Last administered on 06/11/16 21:06 ; Admin Dose 80 MG; Start 06/09/16 at 21:00 Furosemide (Lasix) 40 mg DAILY PO Last administered on 12/29/16at 09:38; Admin Dose 40 MG; Start 06/10/16 at 09:00 Metoprolol Tartrate (Lopressor) 50 mg BID PO Last administered on 06/11/16at 20 :57; Admin Dose 50 MG; Start 06/10/16 at 21:00 JOAQUIN WELCH M.D. Jun 11, 2016 23:40 JOAQUIN WELCH M.D. Jun 11, 2016 23:40
[2016-06-12] VITALS (11 sets, daily range): BP systolic 100–172; BP diastolic 42–70; PULSE 46–60; RESP 18–20
[2016-06-12] MEDS: SALMETEROL/FLUTICASONE 500/50 INHA INH SCH ×3 (01:10→20:53)
[2016-06-12] MEDS: ALBUTEROL/IPRATROPIUM (NEB) 3 ML AMP HHN SCH ×4 (02:46→20:10)
[2016-06-12] MEDS: INSULIN ASPART [NOVOLOG] 3 ML PEN SC SCH ×4 (07:55→20:55)
[2016-06-12] MEDS: FLUTICASONE 0.05% 16 GM NAS SPRAY NASAL SCH ×2 (08:55→20:53)
[2016-06-12] MEDS: GUAIFENESIN/DM (SR) TAB PO SCH ×2 (08:55→20:51)
[2016-06-12] MEDS: DOCUSATE SODIUM 100 MG CAP PO SCH ×2 (08:56→20:51)
[2016-06-12] MEDS: METOPROLOL 50 MG TAB PO SCH ×2 (08:56→20:52)
[2016-06-12] MEDS: predniSONE 20 MG TAB PO SCH (08:56)
[2016-06-12] MEDS: FUROSEMIDE 40 MG TAB PO SCH (08:56)
[2016-06-12] MEDS: FISH OIL 1,000 MG CAP PO SCH (08:57)
[2016-06-12] MEDS: CLOPIDOGREL 75 MG TAB PO SCH (08:57)
[2016-06-12] MEDS: ASPIRIN (EC) 81 MG TAB PO SCH (08:57)
[2016-06-12] MEDS: ACETYLCYSTEINE 600 MG CAP PO SCH ×2 (08:57→20:51)
[2016-06-12] MEDS: GABAPENTIN 300 MG CAP PO SCH ×3 (08:57→20:51)
[2016-06-12] MEDS: FERROUS SULFATE (EC) 325 MG TAB PO SCH ×2 (08:57→20:51)
[2016-06-12] MEDS: AMIODARONE 200 MG TAB PO SCH (08:58)
[2016-06-12] MEDS: ENOXAPARIN 80 MG/0.8 ML SYG SC SCH ×2 (08:58→20:55)
--- NOTE | 2016-06-12 10:16 | CONS ---
Date/Time of Note Date/Time of Note DATE: 06/12/16 TIME: 10:12 Assessment/Plan Assessment/Plan Additional Assessment/Plan Non-ST elevation ID status post drug-eluting stenting to circumflex 06/01/2016 Respiratory Failure Acute Decompensated Systolic CHF, improving Paroxysmal atrial fibrillation/flutter Transient heart block Acute kidney injury, improving Cardiomyopathy ejection fraction 35% Aortic stenosis, status post transcatheter aortic valve replacement in January 2015. Chronic obstructive pulmonary disease on home oxygen. -Patient undergoing infectious disease evaluation and care secondary to positive urine and blood cultures and awaiting clearance prior to pacemaker implantation. Patient with NSVT noted overnight, awaiting labs from today for need of supplementation of potassium or magnesium. Continue beta mayela, if renal function remained stable, initiate CLARIBEL inhibitor as blood pressure tolerates Consultation Date/Type/Reason Admit Date/Time May 26, 2016 at 19:17 Type of Consultation: cv 24 HR Interval Summary Free Text/Dictation Shortness of breath improved, denies chest pain or palpitations Exam/Review of Systems Vital Signs Vitals Vital Signs Date Time Temp Pulse Resp B/P Pulse Ox O2 Delivery O2 Flow Rate FiO2 06/12/16 09:13 60 22 95 Nasal Cannula 3.0 06/12/16 07:43 97.6 122/58 Intake and Output 06/11/16 06/11/16 06/12/16 15:00 23:00 07:00 Intake Total 300 ml Output Total 600 ml Balance -300 ml Exam No apparent distress Constitutional: alert, oriented Head: normocephalic Neck: supple Respiratory: other (course breath sounds bilaterally, no wheezing, scattered rhonchi) Cardiovascular: other (S1 and S2 heard), regular rate and rhythm Gastrointestinal: bowel sounds, non-tender, other (no guarding), soft Extremities: edema (trace) Results Result Diagram: 06/10/16 0610 06/10/16 0610 Results 24 hrs Laboratory Tests Test 06/11/16 12:25 06/11/16 17:48 06/11/16 20:52 06/12/16 08:02 Bedside Glucose 114 193 221 H 105 Medications Medications Current Medications Aspirin (Halfprin) 81 mg DAILY PO Last administered on 06/12/16at 08:57; Admin Dose 81 MG; Start 05/27/16 at 09:00 Clopidogrel Bisulfate (plaVIX) 75 mg DAILY PO Last administered on 06/12/16 08:57; Admin Dose 75 MG; Start 05/27/16 at 09:00 Ferrous Sulfate (Ferrous Sulfate (Ec)) 325 mg BID PO Last administered on 06/12 08:57; Admin Dose 325 MG; Start 05/27/16 at 09:00 Fluticasone Propionate (Flonase 0.05% Nasal) 1 spray BID NASAL Last administered on 06/12/16 08:55; Admin Dose 1 SPRAY; Start 05/27/16 at 09:00 Gabapentin (Neurontin) 300 mg TID PO Last administered on 06/12/16 08:57; Admin Dose 300 MG; Start 05/27/16 at 09:00 Guaifenesin/ Dextromethorphan (Robitussin Dm Liquid Cup) 10 ml Q4H PRN PO COUGH Last administered on 06/11/16 14:48; Admin Dose 10 ML; Start 05/26/16 at 21:30 Montelukast Sodium (Singulair) 10 mg HS PO Last administered on 06/11/16 20: 55; Admin Dose 10 MG; Start 05/27/16 at 21:00 Oxycodone/ Acetaminophen (Endocet (10/ 325)) 1 tab Q6 PRN PO PAIN; Start 05/26 at 21:30 Salmeterol Xinafoate/ Fluticasone (Advair 500/50 Diskus) 1 inh BID INH Last administered on 06/12/16 08:55; Admin Dose 1 INH; Start 05/27/16 at 09:00 Acetaminophen (Tylenol Tab) 650 mg Q4H PRN PO pain/fever; Start 05/26/16 at 21 :30 Ondansetron HCl (Zofran Inj) 4 mg Q4H PRN IV nausea Last administered on 17:32; Admin Dose 4 MG; Start 05/26/16 at 21:30 Guaifenesin/ Dextromethorphan (Mucinex Dm) 1 tab BID PO Last administered on 08:55; Admin Dose 1 TAB; Start 05/27/16 at 09:00 Fish Oil (Fish Oil) 1,000 mg DAILY PO Last administered on 06/12/16 08:57; Admin Dose 1,000 MG; Start 05/27/16 at 09:00 Atorvastatin Calcium (Lipitor) 80 mg DAILY@21 PO Last administered on at 20:54; Admin Dose 80 MG; Start 05/27/16 at 00:00 Tramadol HCl (Ultram) 50 mg Q6H PRN PO PAIN Last administered on 06/10/16at 23: 42; Admin Dose 50 MG; Start 05/27/16 at 14:00 Miscellaneous Information 1 ea NOTE XX ; Start 05/27/16 at 18:30 Glucose (Glutose) 15 gm Q15M PRN PO DECREASED GLUCOSE; Start 05/27/16 at 18:30 Glucose (Glutose) 22.5 gm Q15M PRN PO DECREASED GLUCOSE; Start 05/27/16 at 18: 30 Dextrose (D50w Syringe) 25 ml Q15M PRN IV DECREASED GLUCOSE; Start 05/27/16 at 18:30 Dextrose (D50w Syringe) 50 ml Q15M PRN IV DECREASED GLUCOSE; Start 05/27/16 at 18:30 Glucagon (Glucagen) 1 mg Q15M PRN IM DECREASED GLUCOSE; Start 05/27/16 at 18: 30 Glucose (Glutose) 15 gm Q15M PRN BUCCAL DECREASED GLUCOSE; Start 05/27/16 at 18:30 IV Flush (NS 10 ml) 10 ml PRN PRN IV IV PROTOCOL; Start 05/28/16 at 17:30 Prednisone (Prednisone) 40 mg DAILY PO Last administered on 06/12/16at 08:56; Admin Dose 40 MG; Start 05/30/16 at 09:00 Morphine Sulfate (morphine) 1 mg Q4H PRN IV PAIN Last administered on at 15:00; Admin Dose 1 MG; Start 06/01/16 at 09:30 Docusate Sodium (Colace) 100 mg BID PO Last administered on 06/12/16at 08:56; Admin Dose 100 MG; Start 06/01/16 at 21:00 Senna (Senokot) 1 tab BID PRN PO CONSTIPATION Last administered on 06/09/16at 20:29; Admin Dose 1 TAB; Start 06/01/16 at 18:30 Digoxin (Digoxin) 0.125 mg DAILY@13 PO Last administered on 06/06/16at 13:34; Admin Dose 0.125 MG; Start 06/06/16 at 13:00; Status Future Hold Amiodarone HCl (Cordarone) 200 mg DAILY PO Last administered on 06/12/16 08: 58; Admin Dose 200 MG; Start 06/07/16 at 09:00 Acetylcysteine (Nac) 600 mg BID PO Last administered on 06/12/16 08:57; Admin Dose 600 MG; Start 06/08/16 at 11:00 Enoxaparin Sodium (Lovenox) 80 mg BID SC Last administered on 06/12/16 08:58 ; Admin Dose 80 MG; Start 06/09/16 at 21:00 Furosemide (Lasix) 40 mg DAILY PO Last administered on 06/12/16 08:56; Admin Dose 40 MG; Start 06/10/16 at 09:00 Metoprolol Tartrate (Lopressor) 50 mg BID PO Last administered on 06/12/16 08 :56; Admin Dose 50 MG; Start 06/10/16 at 21:00 Calos Peralta DO Jun 12, 2016 10:16
[2016-06-12 10:24] LABS: BASOPHILS % 0.5 % (0.0-2.0); EOSINOPHILS # 0.1 10^3/ul (0.0-0.5); EOSINOPHILS % 0.6 % (0.0-7.0); HEMATOCRIT 29.3 % (42.0-52.0); HEMOGLOBIN 9.8 g/dl (14.0-18.0); LYMPHOCYTES # 2.1 10^3/ul (0.8-2.9); LYMPHOCYTES % 20.7 % (15.0-51.0); MEAN CORPUSCULAR HEMOGLOBIN 32.2 pg (29.0-33.0); MEAN CORPUSCULAR HGB CONC 33.4 g/dl (32.0-37.0); MEAN CORPUSCULAR VOLUME 96.4 fl (82.0-101.0); MEAN PLATELET VOLUME 9.5 fl (7.4-10.4); MONOCYTE # 0.4 10^3/ul (0.3-0.9); MONOCYTES % 3.9 % (0.0-11.0); NEUTROPHIL # 7.6 10^3/ul (1.6-7.5); NEUTROPHILS % 74.3 % (39.0-77.0); PLATELET COUNT 246 10^3/UL (140-440); RED BLOOD COUNT 3.04 10^6/ul (4.70-6.10); RED CELL DISTRIBUTION WIDTH 16.2 % (11.5-14.5); UNCORRECTED WBC 10.2 10^3/ul (4.8-10.8); WHITE BLOOD COUNT 10.2 10^3/ul (4.8-10.8)
[2016-06-12 10:25] LABS: CONDITION 1; LH ANALYZER COMMENTS 1
[2016-06-12 10:35] LABS: POTASSIUM 4.1 mmol/L (3.5-5.1)
[2016-06-12 10:38] LABS: CREATININE 0.87 mg/dl (0.61-1.24)
[2016-06-12 10:39] LABS: CALCIUM 8.1 mg/dl (8.4-10.2)
--- NOTE | 2016-06-12 13:41 | CONS ---
Date/Time of Note Date/Time of Note DATE: 06/12/16 TIME: 13:40 Consult Date/Type/Reason Admit Date/Time May 26, 2016 at 19:17 Initial Consult Date 05/28/16 Type of Consultation: pulm Subjective Feels ok, less shortness of breath Objective Vital Signs Date Time Temp Pulse Resp B/P Pulse Ox O2 Delivery O2 Flow Rate FiO2 06/12/16 12:31 55 06/12/16 11:51 98.3 20 96 06/12/16 11:08 Nasal Cannula 3.0 Intake and Output 06/11/16 06/11/16 06/12/16 15:00 23:00 07:00 Intake Total 300 ml Output Total 600 ml Balance -300 ml GENERAL: Elderly gentleman awake alert oriented comfortable at rest VITAL SIGNS: per chart NECK: Supple. No JVD or lymphadenopathy. CARDIAC EXAM: S1, S2. No added sounds or murmurs. CHEST: clear bilaterally, No added sounds, rales or wheezes ABDOMEN: Soft, nontender. No guarding or rebound. EXTREMITIES: No cyanosis, clubbing or edema. NEUROLOGIC: Generalized weakness. No focal deficits. Results/Medications Result Diagram: 06/12/16 0950 06/12/16 0950 Results 24 hrs Laboratory Tests Test 06/11/16 17:48 06/11/16 20:52 06/12/16 08:02 06/12/16 09:50 Bedside Glucose 193 221 H 105 Anion Gap 11 Basophils # 0.0 Basophils % 0.5 Blood Morphology Comment Blood Urea Nitrogen 23 H Calcium Level 8.1 L Carbon Dioxide Level 37 H Chloride Level 96 L Creatinine 0.87 Eosinophils # 0.1 Eosinophils % 0.6 Erythrocyte Sedimentation Rate 62 H Glucose Level 134 Hematocrit 29.3 L Hemoglobin 9.8 L Lymphocytes # 2.1 Lymphocytes % 20.7 Magnesium Level 2.0 Mean Corpuscular Hemoglobin 32.2 Mean Corpuscular Hemoglobin Concent 33.4 Mean Corpuscular Volume 96.4 Mean Platelet Volume 9.5 Monocytes # 0.4 Monocytes % 3.9 Neutrophils # 7.6 H Neutrophils % 74.3 Nucleated Red Blood Cells # 0.0 Nucleated Red Blood Cells % 0.0 Platelet Count 246 # Potassium Level 4.1 Red Blood Count 3.04 L Red Cell Distribution Width 16.2 H Sodium Level 140 White Blood Count 10.2 # Test 06/12/16 11:48 Bedside Glucose 138 Medications Current Medications Aspirin (Halfprin) 81 mg DAILY PO Last administered on 06/12/16 08:57; Admin Dose 81 MG; Start 05/27/16 at 09:00 Clopidogrel Bisulfate (plaVIX) 75 mg DAILY PO Last administered on 06/12/16 08:57; Admin Dose 75 MG; Start 05/27/16 at 09:00 Ferrous Sulfate (Ferrous Sulfate (Ec)) 325 mg BID PO Last administered on 06/12 08:57; Admin Dose 325 MG; Start 05/27/16 at 09:00 Fluticasone Propionate (Flonase 0.05% Nasal) 1 spray BID NASAL Last administered on 06/12/16 08:55; Admin Dose 1 SPRAY; Start 05/27/16 at 09:00 Gabapentin (Neurontin) 300 mg TID PO Last administered on 06/12/16 13:17; Admin Dose 300 MG; Start 05/27/16 at 09:00 Guaifenesin/ Dextromethorphan (Robitussin Dm Liquid Cup) 10 ml Q4H PRN PO COUGH Last administered on 06/11/16 14:48; Admin Dose 10 ML; Start 05/26/16 at 21:30 Montelukast Sodium (Singulair) 10 mg HS PO Last administered on 06/11/16 20: 55; Admin Dose 10 MG; Start 05/27/16 at 21:00 Oxycodone/ Acetaminophen (Endocet (10/ 325)) 1 tab Q6 PRN PO PAIN; Start 05/26 at 21:30 Salmeterol Xinafoate/ Fluticasone (Advair 500/50 Diskus) 1 inh BID INH Last administered on 06/12/16 08:55; Admin Dose 1 INH; Start 05/27/16 at 09:00 Acetaminophen (Tylenol Tab) 650 mg Q4H PRN PO pain/fever; Start 05/26/16 at 21 :30 Ondansetron HCl (Zofran Inj) 4 mg Q4H PRN IV nausea Last administered on 17:32; Admin Dose 4 MG; Start 05/26/16 at 21:30 Guaifenesin/ Dextromethorphan (Mucinex Dm) 1 tab BID PO Last administered on 08:55; Admin Dose 1 TAB; Start 05/27/16 at 09:00 Fish Oil (Fish Oil) 1,000 mg DAILY PO Last administered on 06/12/16 08:57; Admin Dose 1,000 MG; Start 05/27/16 at 09:00 Atorvastatin Calcium (Lipitor) 80 mg DAILY@21 PO Last administered on 20:54; Admin Dose 80 MG; Start 05/27/16 at 00:00 Tramadol HCl (Ultram) 50 mg Q6H PRN PO PAIN Last administered on 06/10/16 23: 42; Admin Dose 50 MG; Start 05/27/16 at 14:00 Miscellaneous Information 1 ea NOTE XX ; Start 05/27/16 at 18:30 Glucose (Glutose) 15 gm Q15M PRN PO DECREASED GLUCOSE; Start 05/27/16 at 18:30 Glucose (Glutose) 22.5 gm Q15M PRN PO DECREASED GLUCOSE; Start 05/27/16 at 18: 30 Dextrose (D50w Syringe) 25 ml Q15M PRN IV DECREASED GLUCOSE; Start 05/27/16 at 18:30 Dextrose (D50w Syringe) 50 ml Q15M PRN IV DECREASED GLUCOSE; Start 05/27/16 at 18:30 Glucagon (Glucagen) 1 mg Q15M PRN IM DECREASED GLUCOSE; Start 05/27/16 at 18: 30 Glucose (Glutose) 15 gm Q15M PRN BUCCAL DECREASED GLUCOSE; Start 05/27/16 at 18:30 IV Flush (NS 10 ml) 10 ml PRN PRN IV IV PROTOCOL; Start 05/28/16 at 17:30 Prednisone (Prednisone) 40 mg DAILY PO Last administered on 06/12/16at 08:56; Admin Dose 40 MG; Start 05/30/16 at 09:00 Morphine Sulfate (morphine) 1 mg Q4H PRN IV PAIN Last administered on at 15:00; Admin Dose 1 MG; Start 06/01/16 at 09:30 Docusate Sodium (Colace) 100 mg BID PO Last administered on 06/12/16 08:56; Admin Dose 100 MG; Start 06/01/16 at 21:00 Senna (Senokot) 1 tab BID PRN PO CONSTIPATION Last administered on 12/27/16at 20:29; Admin Dose 1 TAB; Start 06/01/16 at 18:30 Digoxin (Digoxin) 0.125 mg DAILY@13 PO Last administered on 06/06/16at 13:34; Admin Dose 0.125 MG; Start 06/06/16 at 13:00; Status Future Hold Amiodarone HCl (Cordarone) 200 mg DAILY PO Last administered on 06/12/16at 08: 58; Admin Dose 200 MG; Start 06/07/16 at 09:00 Acetylcysteine (Nac) 600 mg BID PO Last administered on 06/12/16at 08:57; Admin Dose 600 MG; Start 06/08/16 at 11:00 Enoxaparin Sodium (Lovenox) 80 mg BID SC Last administered on 06/12/16at 08:58 ; Admin Dose 80 MG; Start 06/09/16 at 21:00 Furosemide (Lasix) 40 mg DAILY PO Last administered on 06/12/16at 08:56; Admin Dose 40 MG; Start 06/10/16 at 09:00 Metoprolol Tartrate (Lopressor) 50 mg BID PO Last administered on 06/12/16at 08 :56; Admin Dose 50 MG; Start 06/10/16 at 21:00 Assessment/Plan Chief Complaint/Hosp Course IMPRESSION AND PLAN: 1. Congestive cardiac failure. History of aortic stenosis status post aortic valve replacement cardiomyopathy with decreased ejection fraction. Status post cardiac catheterization 2. Possible chronic obstructive pulmonary disease exacerbation. Chronic hypoxemia on supplemental oxygen 3. Non-ST elevation [place]. Status post cardiac catheterization found to have mild disease requiring medical management 4. Gentle diuresis. 5. Antibiotics for pneumonia 6. DVT and GI prophylaxis. 7. Paroxysmal atrial fibrillation with cardioversion performed in the past Plan 1. Diuresis if tolerated 2. Cardiac recommendations, pending pacemaker placement. 3. Supplemental O2 as needed 4. DVT and GI prophylaxis Problems: SIOMARA GARZA MD, [facility] Jun 12, 2016 13:41
[2016-06-12] MEDS ORDERED: VANCOMYCIN IV PER PHARMACY XX SCH (14:30)
[2016-06-12] MEDS: morphine 2 MG INJ IV PRN ×2 (14:36→19:46)
[2016-06-12] MEDS ORDERED: VANCOMYCIN 2 GM in SOD CHLORIDE 0.9% 500 ML IVPB SCH (15:00)
[2016-06-12] MEDS ORDERED: LIDOCAINE 1% (MDV) 20 ML INJ SC ONE (16:30)
--- NOTE | 2016-06-12 17:32 | PN ---
DATE: 06/12/2016 SUBJECTIVE: No acute events overnight. The patient is alert, feels good, denies pain or discomfort . No fevers, no dysuria. WBC today 10.2 with platelets 246, neutrophils 74.3, no bands. BUN 23, c reatinine 0.87. MICROBIOLOGY: Urine culture on admission grew enterococcus species, and repeat urine cultures still growing enterococcus species. Blood culture on 06/09/2016 grew coagulase-negative staph species. ANTIMICROBIALS: The patient was started on IV vancomycin. OBJECTIVE: GENERAL: This is a fragile, elderly man who is awake, in no distress. HEENT: Head atraumatic, normocephalic. Sclerae anicteric. Buccal mucosa dry. NECK: Supple, trachea midline. CHEST: Rise symmetrical. Breath sounds diminished to bases. HEART: S1, S2. ABDOMEN: Soft, bowel tones present. EXTREMITIES: Without cyanosis. ASSESSMENT: 1. Systemic inflammatory response syndrome, resolved. 2. Enterococcal urinary tract infection, possibly colonized to #3. 3. Non-ST elevation myocardial infarction, status post percutaneous transluminal coronary angioplas ty with stent. 4. Atrial fibrillation. 5. Chronic obstructive pulmonary disease. 6. Acute on chronic kidney disease. PLAN: The patient remains clinically stable, covered with appropriate antimicrobials. Pending perm anent pacemaker. We are going to repeat his blood cultures although the first set was consistent wi th contaminant. Dictated By: ROSA ISELA DAVIDSON [employer] FI[employer] TECHNICIAN for JAEL CHARLES MD NI/NTS Conf#: [id number] DID#: [id number]
[2016-06-12] MEDS: MONTELUKAST 10 MG TAB PO SCH (20:51)
[2016-06-12] MEDS: ATORVASTATIN 80 MG TAB PO SCH (20:51)
[2016-06-13] VITALS (12 sets, daily range): BP systolic 114–130; BP diastolic 52–62; PULSE 49–62; RESP 18–20
[2016-06-13] MEDS: GUAIFENESIN/DM 5ML CUP PO PRN ×2 (02:10→17:00)
[2016-06-13] MEDS: ALBUTEROL/IPRATROPIUM (NEB) 3 ML AMP HHN SCH ×4 (02:15→20:03)
[2016-06-13] MEDS: morphine 2 MG INJ IV PRN (02:57)
[2016-06-13] MEDS: INSULIN ASPART [NOVOLOG] 3 ML PEN SC SCH ×4 (07:49→20:55)
[2016-06-13] MEDS: FISH OIL 1,000 MG CAP PO SCH (08:22)
[2016-06-13] MEDS: GUAIFENESIN/DM (SR) TAB PO SCH ×2 (08:22→20:43)
[2016-06-13] MEDS: ACETYLCYSTEINE 600 MG CAP PO SCH ×2 (08:22→20:42)
[2016-06-13] MEDS: AMIODARONE 200 MG TAB PO SCH (08:23)
[2016-06-13] MEDS: CLOPIDOGREL 75 MG TAB PO SCH (08:23)
[2016-06-13] MEDS: GABAPENTIN 300 MG CAP PO SCH ×3 (08:23→20:42)
[2016-06-13] MEDS: DOCUSATE SODIUM 100 MG CAP PO SCH ×2 (08:23→20:43)
[2016-06-13] MEDS: FUROSEMIDE 40 MG TAB PO SCH (08:23)
[2016-06-13] MEDS: ASPIRIN (EC) 81 MG TAB PO SCH (08:23)
[2016-06-13] MEDS: predniSONE 20 MG TAB PO SCH (08:24)
[2016-06-13] MEDS: METOPROLOL 50 MG TAB PO SCH ×2 (08:24→20:44)
[2016-06-13] MEDS: FERROUS SULFATE (EC) 325 MG TAB PO SCH ×2 (08:24→20:43)
[2016-06-13] MEDS: FLUTICASONE 0.05% 16 GM NAS SPRAY NASAL SCH ×2 (08:25→20:43)
[2016-06-13] MEDS: SALMETEROL/FLUTICASONE 500/50 INHA INH SCH ×2 (08:25→20:43)
[2016-06-13] MEDS: ENOXAPARIN 80 MG/0.8 ML SYG SC SCH ×2 (08:32→20:55)
--- NOTE | 2016-06-13 11:42 | CONS ---
Date/Time of Note Date/Time of Note DATE: 06/13/16 TIME: 11:40 Assessment/Plan Assessment/Plan Chief Complaint/Hosp Course Non-ST elevation [place] status post drug-eluting stenting to circumflex 06/01/2016 Respiratory Failure Acute Decompensated Systolic CHF, improving Paroxysmal atrial fibrillation/flutter Transient heart block Acute kidney injury, improving Cardiomyopathy ejection fraction 35% Aortic stenosis, status post transcatheter aortic valve replacement in January 2015. Chronic obstructive pulmonary disease on home oxygen. Problems: Additional Assessment/Plan 1) continue current meds 2) awaiting ID clearance Consultation Date/Type/Reason Admit Date/Time May 26, 2016 at 19:17 Initial Consult Date 05/28/16 Type of Consultation: cv 24 HR Interval Summary Free Text/Dictation sob at baseline, no chest pain, no palpitations Detailed Summary Respiratory: cough, shortness of breath, sputum Cardiovascular: no complaints Gastrointestinal: no complaints Musculoskeletal: no complaints Skin: bruising Neurologic: no complaints Exam/Review of Systems Vital Signs Vitals Vital Signs Date Time Temp Pulse Resp B/P Pulse Ox O2 Delivery O2 Flow Rate FiO2 06/13/16 08:55 96 4.0 06/13/16 08:55 88 18 Nasal Cannula 06/13/16 08:42 118/52 06/13/16 04:31 98.0 Intake and Output 06/12/16 06/12/16 06/13/16 15:00 23:00 07:00 Intake Total 1400 ml 400 ml Output Total 600 ml 800 ml Balance 800 ml -400 ml Exam Constitutional: alert Psych: no complaints Head: atraumatic, normocephalic ENMT: nl external ears & nose Neck: supple Respiratory: diminished breath sounds Cardiovascular: irregular rhythm Gastrointestinal: soft Musculoskeletal: muscle tone Results Result Diagram: 06/12/16 0950 06/12/16 0950 Results 24 hrs Laboratory Tests Test 06/12/16 11:48 06/12/16 17:37 06/12/16 20:48 06/13/16 07:24 Bedside Glucose 138 177 186 94 Test 06/13/16 11:37 Bedside Glucose 132 Medications Medications Current Medications Aspirin (Halfprin) 81 mg DAILY PO Last administered on 06/13/16at 08:23; Admin Dose 81 MG; Start 05/27/16 at 09:00 Clopidogrel Bisulfate (plaVIX) 75 mg DAILY PO Last administered on 06/13/16 08:23; Admin Dose 75 MG; Start 05/27/16 at 09:00 Ferrous Sulfate (Ferrous Sulfate (Ec)) 325 mg BID PO Last administered on 06/13 08:24; Admin Dose 325 MG; Start 05/27/16 at 09:00 Fluticasone Propionate (Flonase 0.05% Nasal) 1 spray BID NASAL Last administered on 06/13/16 08:25; Admin Dose 1 SPRAY; Start 05/27/16 at 09:00 Gabapentin (Neurontin) 300 mg TID PO Last administered on 06/13/16 08:23; Admin Dose 300 MG; Start 05/27/16 at 09:00 Guaifenesin/ Dextromethorphan (Robitussin Dm Liquid Cup) 10 ml Q4H PRN PO COUGH Last administered on 06/13/16 02:10; Admin Dose 10 ML; Start 05/26/16 at 21:30 Montelukast Sodium (Singulair) 10 mg HS PO Last administered on 06/12/16 20: 51; Admin Dose 10 MG; Start 05/27/16 at 21:00 Oxycodone/ Acetaminophen (Endocet (10/ 325)) 1 tab Q6 PRN PO PAIN; Start 05/26 at 21:30 Salmeterol Xinafoate/ Fluticasone (Advair 500/50 Diskus) 1 inh BID INH Last administered on 06/13/16 08:25; Admin Dose 1 INH; Start 05/27/16 at 09:00 Acetaminophen (Tylenol Tab) 650 mg Q4H PRN PO pain/fever; Start 05/26/16 at 21 :30 Ondansetron HCl (Zofran Inj) 4 mg Q4H PRN IV nausea Last administered on 17:32; Admin Dose 4 MG; Start 05/26/16 at 21:30 Guaifenesin/ Dextromethorphan (Mucinex Dm) 1 tab BID PO Last administered on 08:22; Admin Dose 1 TAB; Start 05/27/16 at 09:00 Fish Oil (Fish Oil) 1,000 mg DAILY PO Last administered on 06/13/16 08:22; Admin Dose 1,000 MG; Start 05/27/16 at 09:00 Atorvastatin Calcium (Lipitor) 80 mg DAILY@21 PO Last administered on at 20:51; Admin Dose 80 MG; Start 05/27/16 at 00:00 Tramadol HCl (Ultram) 50 mg Q6H PRN PO PAIN Last administered on 06/10/16at 23: 42; Admin Dose 50 MG; Start 05/27/16 at 14:00 Miscellaneous Information 1 ea NOTE XX ; Start 05/27/16 at 18:30 Glucose (Glutose) 15 gm Q15M PRN PO DECREASED GLUCOSE; Start 05/27/16 at 18:30 Glucose (Glutose) 22.5 gm Q15M PRN PO DECREASED GLUCOSE; Start 05/27/16 at 18: 30 Dextrose (D50w Syringe) 25 ml Q15M PRN IV DECREASED GLUCOSE; Start 05/27/16 at 18:30 Dextrose (D50w Syringe) 50 ml Q15M PRN IV DECREASED GLUCOSE; Start 05/27/16 at 18:30 Glucagon (Glucagen) 1 mg Q15M PRN IM DECREASED GLUCOSE; Start 05/27/16 at 18: 30 Glucose (Glutose) 15 gm Q15M PRN BUCCAL DECREASED GLUCOSE; Start 05/27/16 at 18:30 IV Flush (NS 10 ml) 10 ml PRN PRN IV IV PROTOCOL; Start 05/28/16 at 17:30 Prednisone (Prednisone) 40 mg DAILY PO Last administered on 06/13/16at 08:24; Admin Dose 40 MG; Start 05/30/16 at 09:00 Morphine Sulfate (morphine) 1 mg Q4H PRN IV PAIN Last administered on at 02:57; Admin Dose 1 MG; Start 06/01/16 at 09:30 Docusate Sodium (Colace) 100 mg BID PO Last administered on 06/13/16at 08:23; Admin Dose 100 MG; Start 06/01/16 at 21:00 Senna (Senokot) 1 tab BID PRN PO CONSTIPATION Last administered on 06/09/16at 20:29; Admin Dose 1 TAB; Start 06/01/16 at 18:30 Digoxin (Digoxin) 0.125 mg DAILY@13 PO Last administered on 06/06/16at 13:34; Admin Dose 0.125 MG; Start 06/06/16 at 13:00; Status Future Hold Amiodarone HCl (Cordarone) 200 mg DAILY PO Last administered on 06/13/16 08: 23; Admin Dose 200 MG; Start 06/07/16 at 09:00 Acetylcysteine (Nac) 600 mg BID PO Last administered on 06/13/16 08:22; Admin Dose 600 MG; Start 06/08/16 at 11:00 Enoxaparin Sodium (Lovenox) 80 mg BID SC Last administered on 06/13/16 08:32 ; Admin Dose 80 MG; Start 06/09/16 at 21:00 Furosemide (Lasix) 40 mg DAILY PO Last administered on 06/13/16 08:23; Admin Dose 40 MG; Start 06/10/16 at 09:00 Metoprolol Tartrate 50 mg 50 mg BID PO Last administered on 06/13/16 08:24; Admin Dose 50 MG; Start 06/10/16 at 21:00 Vancomycin HCl/ Sodium Chloride (Vancocin/NS) 250 ml @ 83.333 mls/ hr Q24H IVPB ; Start 06/13/16 at 15:00 MARC SIGALA MD Jun 13, 2016 11:41
--- NOTE | 2016-06-13 11:55 | PN ---
Date/Time of Note Date/Time of Note DATE: 06/12/16 TIME: 14:52 Assessment/Plan VTE Prophylaxis VTE Prophylaxis Intervention: LMWH Lines/Catheters IV C[facility]ter Type [facility]from [facility] Saline Lock Urinary Cath still in place: No Assessment/Plan Assessment/Plan [facility] 1. Hospital day 17 for this 80-year-old man who presented 05/26/16 with generalized weakness and inability to stand, and was diagnosed with NSTEMI. Recovering well overall, with improving respiratory status. His portable CXR showed no infiltrates. Urine positive 06/09/16 for enterococcus, and now with three blood culture bottles positive for Staph species. * Discussed with Dr. Stan Woods (ID) christopher. He feels that we must treat with ten days of vancomycin and have clear repeat cultures before a pacemaker/ AICD can be contemplated. * I discussed with Mr. Roach and his partner the potential benefit of placing a new PICC line for improved access to continued with blood draws and the antibiotics he needs. * Will need to discuss with Dr. Peralta and colleagues the possibility of having him move to a rehab setting in the meantime to help with conditioning and gait stability while we wait to clear this infection. 2. NSTEMI s/p TAVR and with cardiomyopathy, troponin up to 13, s/p PTCA with stent to the circumflex coronary artery. Hs is also s/p cardioversion for atrial fibrillation 5 days ago; back in Afib 4 days ago, then converted spontaneously back to sinus rhythm 3 days ago on amiodarone. Echo shows EF 30% . Now apparently stable in sinus rhythm. * Contine on oxygen per NC * Diuresis as needed * Enoxaparin 80mg SQ q12h -- high dose, now day 5; will need to discuss dose adjustment with Cardiology, given the coincident use of aspirin and Plavix * Continue Lopressor 3. COPD, O2-dependent: on NC currently and BiPAP PRN * Continue prednisone 40 mg qAM * Nebulizer treatment; continue Advair and Spiriva 4. Acute on chronic kidney disease, now apparently back to baseline 5. S/p accidental fall weekend prior to admission with RLE hematoma, RUE ecchymosis, and right rib fractures * Pain control with Percocet prn and Tramadol PRN * Hb stable and CT right LE noted. Continue to monitor 6. Chronic back pain with acute component now with rib fractures * Percocet and tramadol prn 7. Hypertension * Hold Diovan for hypotension 8. H/o temporal arteritis. No clear evidence of active disease, but currently treated with prednisone. 9. Previous transient ischemic attack. Patient's mental status is stable and at baseline. 10. Prophylaxis: SCDs as tolerated, Protonix for GI protection while on steroids 11. Disposition: Plan for Biventricular pacer +/- ICD once the bacteremia issue is adequately addressed, as noted above. Jose Welch MD PhD [phone] Subjective 24 Hr Interval Summary Free Text/Dictation Feeling quite well. Minimal pain now, when not moving (his ribs are still sore) . We had a long discussion about the implications of the positive blood cultures, sharing my conversation with Dr. Woods and the need for ten days of additional IV antibiotics before the pacemaker can be placed. Overall picture very encouraging, but he was quite discouraged about our inability to proceed with alacrity with the pacemaker/AICD placement. Exam/Review of Systems Vital Signs Vitals Vital Signs Date Time Temp Pulse Resp B/P Pulse Ox O2 Delivery O2 Flow Rate FiO2 06/13/16 08:55 96 4.0 06/13/16 08:55 88 18 Nasal Cannula 06/13/16 08:42 118/52 06/13/16 04:31 98.0 Intake and Output 06/12/16 06/12/16 06/13/16 15:00 23:00 07:00 Intake Total 1400 ml 400 ml Output Total 600 ml 800 ml Balance 800 ml -400 ml Exam Constitutional: Sitting up, eating, breathing comfortably on NC 2L. Respiratory: Light crackles at bases, with continued hypoventillation. No rub. Cardiovascular: Symmetric pulses, regular rate and rhythm Gastrointestinal: non-tender, soft, no hepatosplenomegaly. Musculoskeletal: Large hematoma right leg, with mild lateral tenderness. Extremities: Symmetric pulses 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: DISPENSING OPTICIAN II-XII intact, nl mental status, nl speech. Calm affect. Results Result Diagram: 06/12/16 0950 06/12/16 0950 Results 24 hrs Laboratory Tests Test 06/12/16 17:37 06/12/16 20:48 06/13/16 07:24 06/13/16 11:37 Bedside Glucose 177 186 94 132 Medications Medications Current Medications Aspirin (Halfprin) 81 mg DAILY PO Last administered on 06/13/16 08:23; Admin Dose 81 MG; Start 05/27/16 at 09:00 Clopidogrel Bisulfate (plaVIX) 75 mg DAILY PO Last administered on 06/13/16 08:23; Admin Dose 75 MG; Start 05/27/16 at 09:00 Ferrous Sulfate (Ferrous Sulfate (Ec)) 325 mg BID PO Last administered on 06/13 08:24; Admin Dose 325 MG; Start 05/27/16 at 09:00 Fluticasone Propionate (Flonase 0.05% Nasal) 1 spray BID NASAL Last administered on 06/13/16 08:25; Admin Dose 1 SPRAY; Start 05/27/16 at 09:00 Gabapentin (Neurontin) 300 mg TID PO Last administered on 06/13/16 08:23; Admin Dose 300 MG; Start 05/27/16 at 09:00 Guaifenesin/ Dextromethorphan (Robitussin Dm Liquid Cup) 10 ml Q4H PRN PO COUGH Last administered on 06/13/16 02:10; Admin Dose 10 ML; Start 05/26/16 at 21:30 Montelukast Sodium (Singulair) 10 mg HS PO Last administered on 06/12/16 20: 51; Admin Dose 10 MG; Start 05/27/16 at 21:00 Oxycodone/ Acetaminophen (Endocet (10/ 325)) 1 tab Q6 PRN PO PAIN; Start 05/26 at 21:30 Salmeterol Xinafoate/ Fluticasone (Advair 500/50 Diskus) 1 inh BID INH Last administered on 06/13/16 08:25; Admin Dose 1 INH; Start 05/27/16 at 09:00 Acetaminophen (Tylenol Tab) 650 mg Q4H PRN PO pain/fever; Start 05/26/16 at 21 :30 Ondansetron HCl (Zofran Inj) 4 mg Q4H PRN IV nausea Last administered on 17:32; Admin Dose 4 MG; Start 05/26/16 at 21:30 Guaifenesin/ Dextromethorphan (Mucinex Dm) 1 tab BID PO Last administered on 08:22; Admin Dose 1 TAB; Start 05/27/16 at 09:00 Fish Oil (Fish Oil) 1,000 mg DAILY PO Last administered on 06/13/16at 08:22; Admin Dose 1,000 MG; Start 05/27/16 at 09:00 Atorvastatin Calcium (Lipitor) 80 mg DAILY@21 PO Last administered on at 20:51; Admin Dose 80 MG; Start 05/27/16 at 00:00 Tramadol HCl (Ultram) 50 mg Q6H PRN PO PAIN Last administered on 06/10/16at 23: 42; Admin Dose 50 MG; Start 05/27/16 at 14:00 Miscellaneous Information 1 ea NOTE XX ; Start 05/27/16 at 18:30 Glucose (Glutose) 15 gm Q15M PRN PO DECREASED GLUCOSE; Start 05/27/16 at 18:30 Glucose (Glutose) 22.5 gm Q15M PRN PO DECREASED GLUCOSE; Start 05/27/16 at 18: 30 Dextrose (D50w Syringe) 25 ml Q15M PRN IV DECREASED GLUCOSE; Start 05/27/16 at 18:30 Dextrose (D50w Syringe) 50 ml Q15M PRN IV DECREASED GLUCOSE; Start 05/27/16 at 18:30 Glucagon (Glucagen) 1 mg Q15M PRN IM DECREASED GLUCOSE; Start 05/27/16 at 18: 30 Glucose (Glutose) 15 gm Q15M PRN BUCCAL DECREASED GLUCOSE; Start 05/27/16 at 18:30 IV Flush (NS 10 ml) 10 ml PRN PRN IV IV PROTOCOL; Start 05/28/16 at 17:30 Prednisone (Prednisone) 40 mg DAILY PO Last administered on 06/13/16at 08:24; Admin Dose 40 MG; Start 05/30/16 at 09:00 Morphine Sulfate (morphine) 1 mg Q4H PRN IV PAIN Last administered on at 02:57; Admin Dose 1 MG; Start 06/01/16 at 09:30 Docusate Sodium (Colace) 100 mg BID PO Last administered on 06/13/16at 08:23; Admin Dose 100 MG; Start 06/01/16 at 21:00 Senna (Senokot) 1 tab BID PRN PO CONSTIPATION Last administered on 06/09/16at 20:29; Admin Dose 1 TAB; Start 06/01/16 at 18:30 Digoxin (Digoxin) 0.125 mg DAILY@13 PO Last administered on 06/06/16at 13:34; Admin Dose 0.125 MG; Start 06/06/16 at 13:00; Status Future Hold Amiodarone HCl (Cordarone) 200 mg DAILY PO Last administered on 06/13/16 08: 23; Admin Dose 200 MG; Start 06/07/16 at 09:00 Acetylcysteine (Nac) 600 mg BID PO Last administered on 06/13/16at 08:22; Admin Dose 600 MG; Start 06/08/16 at 11:00 Enoxaparin Sodium (Lovenox) 80 mg BID SC Last administered on 06/13/16 08:32 ; Admin Dose 80 MG; Start 06/09/16 at 21:00 Furosemide (Lasix) 40 mg DAILY PO Last administered on 06/13/16at 08:23; Admin Dose 40 MG; Start 06/10/16 at 09:00 Metoprolol Tartrate 50 mg 50 mg BID PO Last administered on 06/13/16at 08:24; Admin Dose 50 MG; Start 06/10/16 at 21:00 Vancomycin HCl/ Sodium Chloride (Vancocin/NS) 250 ml @ 83.333 mls/ hr Q24H IVPB ; Start 06/13/16 at 15:00 JOAQUIN WELCH M.D. Jun 13, 2016 11:55
--- NOTE | 2016-06-13 13:30 | PN ---
DATE: 06/13/2016 PatientDoc remains relatively stable this morning. No shortness of breath, no orthopnea, no PND, no chest pain, no palpitations. PHYSICAL EXAMINATION: VITAL SIGNS: Temperature 98, pulse is 88, blood pressure 118/52, O2 saturation 96% on 4 L nasal can nula. NECK: Supple. No JVD or lymphadenopathy. CARDIAC: S1, S2, no added sounds or murmurs. CHEST: Diminished air entry bilaterally. ABDOMEN: Soft, nontender. No guarding or rebound. EXTREMITIES: No cyanosis, clubbing, or edema. NEUROLOGIC: Grossly intact. No focal deficits. LABORATORY DATA: CBC and chemistry not drawn today. Microbiology shows enterococcus species in the urine as of 06/11/2016. IMPRESSION AND PLAN 1. Chronic obstructive pulmonary disease with chronic hypoxemia. 2. Status post acute on chronic hypoxemic with respiratory failure. 3. Congestive cardiac failure. 4. Sinus bradycardia, pending possible pacemaker placement. The patient will require 1. Continued vancomycin for enterococcal urinary tract infection. 2. Continue cardiology recommendations for rate control. 3. Possible pacemaker placement once cleared from infectious disease standpoint. Dictated By: SIOMARA VALDES/LATISHA Conf#: [id number] DID#: [id number]
--- NOTE | 2016-06-13 14:15 | PN ---
Date/Time of Note Date/Time of Note DATE: 06/13/16 TIME: 14:11 Assessment/Plan VTE Prophylaxis VTE Prophylaxis Intervention: LMWH Lines/Catheters IV [facility]from [facility] Saline Lock Urinary Cath still in place: No Assessment/Plan Assessment/Plan 1. Hospital day 18 for this 80-year-old man diagnosed with NSTEMI. Recovering well overall, with improving respiratory status. His portable CXR showed no infiltrates. Urine positive 06/09/16 for enterococcus, and now with three blood culture bottles positive for Staph species. * Discussed with Dr. Stan Woods (ID). He feels that we must treat with ten days of vancomycin and have clear repeat cultures before a pacemaker/AICD can be contemplated. * I discussed with Mr. Roach and his partner the potential benefit of placing a new PICC line for improved access to continued with blood draws and the antibiotics he needs. * Will need to discuss with Dr. Peralta and colleagues the possibility of having him move to a rehab setting in the meantime to help with conditioning and gait stability while we wait to clear this infection. More than likely, he will likely need to remain in the hospital, but i will discuss with team. 2. NSTEMI s/p TAVR and with cardiomyopathy, troponin up to 13, s/p PTCA with stent to the circumflex coronary artery. Hs is also s/p cardioversion for atrial fibrillation 6 days ago; back in Afib 5 days ago, then converted spontaneously back to sinus rhythm 4 days ago on amiodarone. Echo shows EF 30% . Now apparently stable in sinus rhythm. No other episodes of a-fib. * Contine on oxygen per NC * Diuresis as needed * Enoxaparin 80mg SQ q12h -- high dose, now day 6; will need to discuss dose adjustment with Cardiology, given the coincident use of aspirin and Plavix * Continue Lopressor 3. COPD, O2-dependent: on NC currently and BiPAP PRN * Continue prednisone 40 mg qAM; consider decreasing if pulmonary agreeable. * Nebulizer treatment; continue Advair and Spiriva 4. Acute on chronic kidney disease, now apparently back to baseline 5. S/p accidental fall weekend prior to admission with RLE hematoma, RUE ecchymosis, and right rib fractures * Pain control with Percocet prn and Tramadol PRN * Hb stable and CT right LE noted. Continue to monitor * Continue PT 6. Chronic back pain with acute component now with rib fractures * Percocet and tramadol prn 7. Hypertension * Hold Diovan for hypotension 8. H/o temporal arteritis. No clear evidence of active disease, but currently treated with prednisone. 9. Previous transient ischemic attack. Patient's mental status is stable and at baseline. 10. Prophylaxis: SCDs as tolerated, Protonix for GI protection while on steroids 11. Disposition: Plan for Biventricular pacer +/- ICD once the bacteremia issue is adequately addressed, as noted abov Subjective 24 Hr Interval Summary Free Text/Dictation Walking with PT. Mild non-productive cough. No other complaints. Exam/Review of Systems Vital Signs Vitals Vital Signs Date Time Temp Pulse Resp B/P Pulse Ox O2 Delivery O2 Flow Rate FiO2 06/13/16 12:15 49 06/13/16 08:55 96 4.0 06/13/16 08:55 18 Nasal Cannula 06/13/16 08:42 118/52 06/13/16 04:31 98.0 Intake and Output 06/12/16 06/12/16 06/13/16 15:00 23:00 07:00 Intake Total 1400 ml 400 ml Output Total 600 ml 800 ml Balance 800 ml -400 ml Exam Constitutional: alert, oriented Psych: no complaints Head: normocephalic Eyes: nl conjunctiva ENMT: nl external ears & nose Neck: supple Respiratory: diminished breath sounds Cardiovascular: regular rate and rhythm Gastrointestinal: soft Musculoskeletal: nl extremities to inspection Results Result Diagram: 06/12/16 0950 06/12/16 0950 Results 24 hrs Laboratory Tests Test 06/12/16 17:37 06/12/16 20:48 06/13/16 07:24 06/13/16 11:37 Bedside Glucose 177 186 94 132 Medications Medications Current Medications Aspirin (Halfprin) 81 mg DAILY PO Last administered on 06/13/16at 08:23; Admin Dose 81 MG; Start 05/27/16 at 09:00 Clopidogrel Bisulfate (plaVIX) 75 mg DAILY PO Last administered on 06/13/16at 08:23; Admin Dose 75 MG; Start 05/27/16 at 09:00 Ferrous Sulfate (Ferrous Sulfate (Ec)) 325 mg BID PO Last administered on 06/13at 08:24; Admin Dose 325 MG; Start 05/27/16 at 09:00 Fluticasone Propionate (Flonase 0.05% Nasal) 1 spray BID NASAL Last administered on 06/13/16 08:25; Admin Dose 1 SPRAY; Start 05/27/16 at 09:00 Gabapentin (Neurontin) 300 mg TID PO Last administered on 06/13/16 13:45; Admin Dose 300 MG; Start 05/27/16 at 09:00 Guaifenesin/ Dextromethorphan (Robitussin Dm Liquid Cup) 10 ml Q4H PRN PO COUGH Last administered on 06/13/16 02:10; Admin Dose 10 ML; Start 05/26/16 at 21:30 Montelukast Sodium (Singulair) 10 mg HS PO Last administered on 06/12/16 20: 51; Admin Dose 10 MG; Start 05/27/16 at 21:00 Oxycodone/ Acetaminophen (Endocet (10/ 325)) 1 tab Q6 PRN PO PAIN; Start 05/26 at 21:30 Salmeterol Xinafoate/ Fluticasone (Advair 500/50 Diskus) 1 inh BID INH Last administered on 06/13/16 08:25; Admin Dose 1 INH; Start 05/27/16 at 09:00 Acetaminophen (Tylenol Tab) 650 mg Q4H PRN PO pain/fever; Start 05/26/16 at 21 :30 Ondansetron HCl (Zofran Inj) 4 mg Q4H PRN IV nausea Last administered on 17:32; Admin Dose 4 MG; Start 05/26/16 at 21:30 Guaifenesin/ Dextromethorphan (Mucinex Dm) 1 tab BID PO Last administered on 08:22; Admin Dose 1 TAB; Start 05/27/16 at 09:00 Fish Oil (Fish Oil) 1,000 mg DAILY PO Last administered on 06/13/16 08:22; Admin Dose 1,000 MG; Start 05/27/16 at 09:00 Atorvastatin Calcium (Lipitor) 80 mg DAILY@21 PO Last administered on 20:51; Admin Dose 80 MG; Start 05/27/16 at 00:00 Tramadol HCl (Ultram) 50 mg Q6H PRN PO PAIN Last administered on 06/10/16at 23: 42; Admin Dose 50 MG; Start 05/27/16 at 14:00 Miscellaneous Information 1 ea NOTE XX ; Start 05/27/16 at 18:30 Glucose (Glutose) 15 gm Q15M PRN PO DECREASED GLUCOSE; Start 05/27/16 at 18:30 Glucose (Glutose) 22.5 gm Q15M PRN PO DECREASED GLUCOSE; Start 05/27/16 at 18: 30 Dextrose (D50w Syringe) 25 ml Q15M PRN IV DECREASED GLUCOSE; Start 05/27/16 at 18:30 Dextrose (D50w Syringe) 50 ml Q15M PRN IV DECREASED GLUCOSE; Start 05/27/16 at 18:30 Glucagon (Glucagen) 1 mg Q15M PRN IM DECREASED GLUCOSE; Start 05/27/16 at 18: 30 Glucose (Glutose) 15 gm Q15M PRN BUCCAL DECREASED GLUCOSE; Start 05/27/16 at 18:30 IV Flush (NS 10 ml) 10 ml PRN PRN IV IV PROTOCOL; Start 05/28/16 at 17:30 Prednisone (Prednisone) 40 mg DAILY PO Last administered on 06/13/16at 08:24; Admin Dose 40 MG; Start 05/30/16 at 09:00 Morphine Sulfate (morphine) 1 mg Q4H PRN IV PAIN Last administered on at 02:57; Admin Dose 1 MG; Start 06/01/16 at 09:30 Docusate Sodium (Colace) 100 mg BID PO Last administered on 06/13/16at 08:23; Admin Dose 100 MG; Start 06/01/16 at 21:00 Senna (Senokot) 1 tab BID PRN PO CONSTIPATION Last administered on 06/09/16at 20:29; Admin Dose 1 TAB; Start 06/01/16 at 18:30 Digoxin (Digoxin) 0.125 mg DAILY@13 PO Last administered on 06/06/16at 13:34; Admin Dose 0.125 MG; Start 06/06/16 at 13:00; Status Future Hold Amiodarone HCl (Cordarone) 200 mg DAILY PO Last administered on 06/13/16at 08: 23; Admin Dose 200 MG; Start 06/07/16 at 09:00 Acetylcysteine (Nac) 600 mg BID PO Last administered on 06/13/16 08:22; Admin Dose 600 MG; Start 06/08/16 at 11:00 Enoxaparin Sodium (Lovenox) 80 mg BID SC Last administered on 06/13/16at 08:32 ; Admin Dose 80 MG; Start 06/09/16 at 21:00 Furosemide (Lasix) 40 mg DAILY PO Last administered on 06/13/16at 08:23; Admin Dose 40 MG; Start 06/10/16 at 09:00 Metoprolol Tartrate 50 mg 50 mg BID PO Last administered on 06/13/16at 08:24; Admin Dose 50 MG; Start 06/10/16 at 21:00 Vancomycin HCl/ Sodium Chloride (Vancocin/NS) 250 ml @ 83.333 mls/ hr Q24H IVPB ; Start 06/13/16 at 15:00 HEATHER MORELAND MD Jun 13, 2016 14:15
--- NOTE | 2016-06-13 15:47 | CONS ---
Date/Time of Note Date/Time of Note DATE: 06/13/16 TIME: 15:34 Assessment/Plan Assessment/Plan Chief Complaint/Hosp Course ID PROGRESS NOTE 24H INTERVAL SUMMARY * WBC normalized, ESR @ 62 * Awake, doing well, no fevers * Vanco IV -> CoNS (+)BCx on 06/09 ?PICC sepsis PHYSICAL EXAMINATION: GENERAL: 80 yo M HEENT: Unremarkable NECK: Supple. Trachea midline. LUNGS: Chest rise symmetrical, without dyspnea on observation CV: NSR tele ABDOMEN: Soft EXTREMITIES: Warm, RLEXT hematoma, BUEXt ecchymosis ID ASSESSMENT: 1. Systemic inflammatory response syndrome=> WBC normalized, ESR elevated, no fevers 2. Enterococcal urinary tract infection, possibly colonized to #3. 3. Non-ST elevation myocardial infarction,s/p PTCA with stent to the circumflex coronary artery. 4. s/p TAVR and with cardiomyopathy= EF 30% 5. Valvular Atrial fibrillation-> s/p DCCV w/return to Afib, now back in NSR on Amiodarone 6. Chronic obstructive pulmonary disease. 6. Acute on chronic kidney disease. 7. 06/09/16 Bacteremia 1/2 bottles = probable skin contaminant => COAGULASE NEGATIVE STAPH 8. s/p FALL prior to admission w/Acute right posterior 10th through 12th rib fractures and possible acute right ninth rib fracture. * Old spine compression fx on imaging (-)MRSA Nares Screen INVASIVES: PICC -> Inserted 05/26/16, TAVR CURRENT ABX: Vanco IV ID RECOMMENDATIONS/PLAN: Continue current ABX Repeat BCx 06/11 & 06/12 in process if (+)CoNS will need to change PICC Line At risk opportunistic CoNS infection due to invasives Per Dr. Stan Woods => must treat with ten days of vancomycin and have clear repeat cultures before a pacemaker/AICD can be contemplated. . Problems: Consultation Date/Type/Reason Admit Date/Time May 26, 2016 at 19:17 Initial Consult Date 05/28/16 Type of Consultation: ID Exam/Review of Systems Vital Signs Vitals Vital Signs Date Time Temp Pulse Resp B/P Pulse Ox O2 Delivery O2 Flow Rate FiO2 06/13/16 14:15 61 18 96 Nasal Cannula 4.0 06/13/16 08:42 118/52 12/31/16 04:31 98.0 Intake and Output 06/12/16 06/12/16 06/13/16 15:00 23:00 07:00 Intake Total 1400 ml 400 ml Output Total 600 ml 800 ml Balance 800 ml -400 ml Results Result Diagram: 06/12/16 0950 06/12/16 0950 Results 24 hrs Laboratory Tests Test 06/12/16 17:37 06/12/16 20:48 06/13/16 07:24 06/13/16 11:37 Bedside Glucose 177 186 94 132 Medications Medications Current Medications Aspirin (Halfprin) 81 mg DAILY PO Last administered on 06/13/16 08:23; Admin Dose 81 MG; Start 05/27/16 at 09:00 Clopidogrel Bisulfate (plaVIX) 75 mg DAILY PO Last administered on 06/13/16 08:23; Admin Dose 75 MG; Start 05/27/16 at 09:00 Ferrous Sulfate (Ferrous Sulfate (Ec)) 325 mg BID PO Last administered on 06/13 08:24; Admin Dose 325 MG; Start 05/27/16 at 09:00 Fluticasone Propionate (Flonase 0.05% Nasal) 1 spray BID NASAL Last administered on 06/13/16 08:25; Admin Dose 1 SPRAY; Start 05/27/16 at 09:00 Gabapentin (Neurontin) 300 mg TID PO Last administered on 06/13/16 13:45; Admin Dose 300 MG; Start 05/27/16 at 09:00 Guaifenesin/ Dextromethorphan (Robitussin Dm Liquid Cup) 10 ml Q4H PRN PO COUGH Last administered on 06/13/16 02:10; Admin Dose 10 ML; Start 05/26/16 at 21:30 Montelukast Sodium (Singulair) 10 mg HS PO Last administered on 06/12/16 20: 51; Admin Dose 10 MG; Start 05/27/16 at 21:00 Oxycodone/ Acetaminophen (Endocet (10/ 325)) 1 tab Q6 PRN PO PAIN; Start 05/26 at 21:30 Salmeterol Xinafoate/ Fluticasone (Advair 500/50 Diskus) 1 inh BID INH Last administered on 06/13/16 08:25; Admin Dose 1 INH; Start 05/27/16 at 09:00 Acetaminophen (Tylenol Tab) 650 mg Q4H PRN PO pain/fever; Start 05/26/16 at 21 :30 Ondansetron HCl (Zofran Inj) 4 mg Q4H PRN IV nausea Last administered on at 17:32; Admin Dose 4 MG; Start 05/26/16 at 21:30 Guaifenesin/ Dextromethorphan (Mucinex Dm) 1 tab BID PO Last administered on at 08:22; Admin Dose 1 TAB; Start 05/27/16 at 09:00 Fish Oil (Fish Oil) 1,000 mg DAILY PO Last administered on 06/13/16at 08:22; Admin Dose 1,000 MG; Start 05/27/16 at 09:00 Atorvastatin Calcium (Lipitor) 80 mg DAILY@21 PO Last administered on at 20:51; Admin Dose 80 MG; Start 05/27/16 at 00:00 Tramadol HCl (Ultram) 50 mg Q6H PRN PO PAIN Last administered on 06/10/16at 23: 42; Admin Dose 50 MG; Start 05/27/16 at 14:00 Miscellaneous Information 1 ea NOTE XX ; Start 05/27/16 at 18:30 Glucose (Glutose) 15 gm Q15M PRN PO DECREASED GLUCOSE; Start 05/27/16 at 18:30 Glucose (Glutose) 22.5 gm Q15M PRN PO DECREASED GLUCOSE; Start 05/27/16 at 18: 30 Dextrose (D50w Syringe) 25 ml Q15M PRN IV DECREASED GLUCOSE; Start 05/27/16 at 18:30 Dextrose (D50w Syringe) 50 ml Q15M PRN IV DECREASED GLUCOSE; Start 05/27/16 at 18:30 Glucagon (Glucagen) 1 mg Q15M PRN IM DECREASED GLUCOSE; Start 05/27/16 at 18: 30 Glucose (Glutose) 15 gm Q15M PRN BUCCAL DECREASED GLUCOSE; Start 05/27/16 at 18:30 IV Flush (NS 10 ml) 10 ml PRN PRN IV IV PROTOCOL; Start 05/28/16 at 17:30 Prednisone (Prednisone) 40 mg DAILY PO Last administered on 06/13/16at 08:24; Admin Dose 40 MG; Start 05/30/16 at 09:00 Morphine Sulfate (morphine) 1 mg Q4H PRN IV PAIN Last administered on 02:57; Admin Dose 1 MG; Start 06/01/16 at 09:30 Docusate Sodium (Colace) 100 mg BID PO Last administered on 06/13/16 08:23; Admin Dose 100 MG; Start 06/01/16 at 21:00 Senna (Senokot) 1 tab BID PRN PO CONSTIPATION Last administered on 06/09/16 20:29; Admin Dose 1 TAB; Start 06/01/16 at 18:30 Digoxin (Digoxin) 0.125 mg DAILY@13 PO Last administered on 06/06/16 13:34; Admin Dose 0.125 MG; Start 06/06/16 at 13:00; Status Future Hold Amiodarone HCl (Cordarone) 200 mg DAILY PO Last administered on 06/13/16 08: 23; Admin Dose 200 MG; Start 06/07/16 at 09:00 Acetylcysteine (Nac) 600 mg BID PO Last administered on 06/13/16 08:22; Admin Dose 600 MG; Start 06/08/16 at 11:00 Enoxaparin Sodium (Lovenox) 80 mg BID SC Last administered on 06/13/16 08:32 ; Admin Dose 80 MG; Start 06/09/16 at 21:00 Furosemide (Lasix) 40 mg DAILY PO Last administered on 06/13/16 08:23; Admin Dose 40 MG; Start 06/10/16 at 09:00 Metoprolol Tartrate 50 mg 50 mg BID PO Last administered on 06/13/16 08:24; Admin Dose 50 MG; Start 06/10/16 at 21:00 Vancomycin HCl/ Sodium Chloride (Vancocin/NS) 250 ml @ 83.333 mls/ hr Q24H IVPB ; Start 06/13/16 at 15:00 АННА ROMO NP Jun 13, 2016 15:46
[2016-06-13] MEDS: VANCOMYCIN 1.5 GM in SOD CHLORIDE 0.9% 250 ML IVPB SCH (16:13)
[2016-06-13] MEDS ORDERED: LIDOCAINE 1% (MDV) 20 ML INJ SC ONE (16:30)
[2016-06-13] MEDS: ATORVASTATIN 80 MG TAB PO SCH (20:42)
[2016-06-13] MEDS: MONTELUKAST 10 MG TAB PO SCH (20:43)
[2016-06-14] VITALS (13 sets, daily range): BP systolic 115–142; BP diastolic 46–65; PULSE 44–56; RESP 16–20
[2016-06-14] MEDS: ALBUTEROL/IPRATROPIUM (NEB) 3 ML AMP HHN SCH ×4 (01:29→19:23)
[2016-06-14] MEDS: GUAIFENESIN/DM 5ML CUP PO PRN (02:09)
[2016-06-14] MEDS: traMADol 50 MG TAB PO PRN (02:09)
[2016-06-14] MEDS: morphine 2 MG INJ IV PRN ×2 (02:47→21:55)
[2016-06-14 06:50] LABS: BASOPHILS % 0.4 % (0.0-2.0); EOSINOPHILS # 0.1 10^3/ul (0.0-0.5); EOSINOPHILS % 0.7 % (0.0-7.0); HEMATOCRIT 26.3 % (42.0-52.0); HEMOGLOBIN 8.9 g/dl (14.0-18.0); LYMPHOCYTES # 1.6 10^3/ul (0.8-2.9); LYMPHOCYTES % 21.8 % (15.0-51.0); MEAN CORPUSCULAR HEMOGLOBIN 32.2 pg (29.0-33.0); MEAN CORPUSCULAR HGB CONC 33.8 g/dl (32.0-37.0); MEAN CORPUSCULAR VOLUME 95.3 fl (82.0-101.0); MEAN PLATELET VOLUME 9.1 fl (7.4-10.4); MONOCYTE # 0.7 10^3/ul (0.3-0.9); MONOCYTES % 10.3 % (0.0-11.0); NEUTROPHIL # 4.9 10^3/ul (1.6-7.5); NEUTROPHILS % 66.8 % (39.0-77.0); PLATELET COUNT 209 10^3/UL (140-440); RED BLOOD COUNT 2.76 10^6/ul (4.70-6.10); RED CELL DISTRIBUTION WIDTH 15.9 % (11.5-14.5); UNCORRECTED WBC 7.3 10^3/ul (4.8-10.8); WHITE BLOOD COUNT 7.3 10^3/ul (4.8-10.8)
[2016-06-14 07:08] LABS: CONDITION 1; LH ANALYZER COMMENTS 1
[2016-06-14 07:16] LABS: POTASSIUM 3.5 mmol/L (3.5-5.1)
[2016-06-14 07:17] LABS: CREATININE 0.84 mg/dl (0.61-1.24)
[2016-06-14 07:18] LABS: CREATININE 0.93 mg/dl (0.61-1.24)
[2016-06-14] MEDS: INSULIN ASPART [NOVOLOG] 3 ML PEN SC SCH ×4 (07:33→20:41)
[2016-06-14] MEDS: SALMETEROL/FLUTICASONE 500/50 INHA INH SCH ×2 (08:54→20:53)
[2016-06-14] MEDS: FLUTICASONE 0.05% 16 GM NAS SPRAY NASAL SCH ×2 (08:54→20:52)
[2016-06-14] MEDS: ACETYLCYSTEINE 600 MG CAP PO SCH ×2 (08:55→20:37)
[2016-06-14] MEDS: GUAIFENESIN/DM (SR) TAB PO SCH ×2 (08:55→20:38)
[2016-06-14] MEDS: CLOPIDOGREL 75 MG TAB PO SCH (08:55)
[2016-06-14] MEDS: FERROUS SULFATE (EC) 325 MG TAB PO SCH ×2 (08:55→20:38)
[2016-06-14] MEDS: predniSONE 20 MG TAB PO SCH (08:55)
[2016-06-14] MEDS: FUROSEMIDE 40 MG TAB PO SCH (08:56)
[2016-06-14] MEDS: DOCUSATE SODIUM 100 MG CAP PO SCH ×2 (08:56→20:52)
[2016-06-14] MEDS: FISH OIL 1,000 MG CAP PO SCH (08:57)
[2016-06-14] MEDS: METOPROLOL 50 MG TAB PO SCH ×2 (08:58→20:39)
[2016-06-14] MEDS: ASPIRIN (EC) 81 MG TAB PO SCH (08:58)
[2016-06-14] MEDS: GABAPENTIN 300 MG CAP PO SCH ×3 (08:58→20:38)
[2016-06-14] MEDS: AMIODARONE 200 MG TAB PO SCH (08:59)
[2016-06-14] MEDS: ENOXAPARIN 80 MG/0.8 ML SYG SC SCH ×2 (09:03→20:50)
--- NOTE | 2016-06-14 11:33 | CONS ---
Date/Time of Note Date/Time of Note DATE: 06/14/16 TIME: 11:31 Consult Date/Type/Reason Admit Date/Time May 26, 2016 at 19:17 Initial Consult Date 05/28/16 Type of Consultation: pulmonary Subjective Patient stable no new events No respiratory distress Objective Vital Signs Date Time Temp Pulse Resp B/P Pulse Ox O2 Delivery O2 Flow Rate FiO2 06/14/16 11:22 98.0 60 20 142/65 96 06/14/16 08:00 Nasal Cannula 3.0 Intake and Output 06/13/16 06/13/16 06/14/16 15:00 23:00 07:00 Intake Total 420 ml 240 ml Output Total 360 ml 600 ml Balance 60 ml -360 ml PHYSICAL EXAMINATION: VITAL SIGNS: NECK: Supple. No JVD or lymphadenopathy. CARDIAC: S1, S2, no added sounds or murmurs. CHEST: Diminished air entry bilaterally. ABDOMEN: Soft, nontender. No guarding or rebound. EXTREMITIES: No cyanosis, clubbing, or edema. NEUROLOGIC: Grossly intact. No focal deficits. Results/Medications Result Diagram: 06/14/16 0605 06/14/16 0623 Results 24 hrs Laboratory Tests Test 06/13/16 11:37 06/13/16 17:32 06/13/16 20:42 06/14/16 06:05 Bedside Glucose 132 185 195 Basophils # 0.0 Basophils % 0.4 Blood Morphology Comment Blood Urea Nitrogen 25 H Creatinine 0.84 Eosinophils # 0.1 Eosinophils % 0.7 Hematocrit 26.3 L Hemoglobin 8.9 L Lymphocytes # 1.6 Lymphocytes % 21.8 Mean Corpuscular Hemoglobin 32.2 Mean Corpuscular Hemoglobin Concent 33.8 Mean Corpuscular Volume 95.3 Mean Platelet Volume 9.1 Monocytes # 0.7 Monocytes % 10.3 Neutrophils # 4.9 Neutrophils % 66.8 Nucleated Red Blood Cells # 0.0 Nucleated Red Blood Cells % 0.0 Platelet Count 209 Red Blood Count 2.76 L Red Cell Distribution Width 15.9 H White Blood Count 7.3 # Test 06/14/16 06:23 06/14/16 07:19 Anion Gap 9 Blood Urea Nitrogen 23 H Calcium Level 8.0 L Carbon Dioxide Level 34 H Chloride Level 99 Creatinine 0.93 Glucose Level 83 # Potassium Level 3.5 Sodium Level 138 Bedside Glucose 92 Medications Current Medications Aspirin (Halfprin) 81 mg DAILY PO Last administered on 06/14/16 08:58; Admin Dose 81 MG; Start 05/27/16 at 09:00 Clopidogrel Bisulfate (plaVIX) 75 mg DAILY PO Last administered on 06/14/16 08: 55; Admin Dose 75 MG; Start 05/27/16 at 09:00 Ferrous Sulfate (Ferrous Sulfate (Ec)) 325 mg BID PO Last administered on 08:55; Admin Dose 325 MG; Start 05/27/16 at 09:00 Fluticasone Propionate (Flonase 0.05% Nasal) 1 spray BID NASAL Last administered on 06/14/16 08:54; Admin Dose 1 SPRAY; Start 05/27/16 at 09:00 Gabapentin (Neurontin) 300 mg TID PO Last administered on 06/14/16 08:58; Admin Dose 300 MG; Start 05/27/16 at 09:00 Guaifenesin/ Dextromethorphan (Robitussin Dm Liquid Cup) 10 ml Q4H PRN PO COUGH Last administered on 06/14/16 02:09; Admin Dose 10 ML; Start 05/26/16 at 21:30 Montelukast Sodium (Singulair) 10 mg HS PO Last administered on 06/13/16at 20: 43; Admin Dose 10 MG; Start 05/27/16 at 21:00 Oxycodone/ Acetaminophen (Endocet (10/ 325)) 1 tab Q6 PRN PO PAIN; Start 05/26 at 21:30 Salmeterol Xinafoate/ Fluticasone (Advair 500/50 Diskus) 1 inh BID INH Last administered on 06/14/16 08:54; Admin Dose 1 INH; Start 05/27/16 at 09:00 Acetaminophen (Tylenol Tab) 650 mg Q4H PRN PO pain/fever; Start 05/26/16 at 21 :30 Ondansetron HCl (Zofran Inj) 4 mg Q4H PRN IV nausea Last administered on at 17:32; Admin Dose 4 MG; Start 05/26/16 at 21:30 Guaifenesin/ Dextromethorphan (Mucinex Dm) 1 tab BID PO Last administered on 08:55; Admin Dose 1 TAB; Start 05/27/16 at 09:00 Fish Oil (Fish Oil) 1,000 mg DAILY PO Last administered on 06/14/16 08:57; Admin Dose 1,000 MG; Start 05/27/16 at 09:00 Atorvastatin Calcium (Lipitor) 80 mg DAILY@21 PO Last administered on at 20:42; Admin Dose 80 MG; Start 05/27/16 at 00:00 Tramadol HCl (Ultram) 50 mg Q6H PRN PO PAIN Last administered on 06/14/16 02:09 ; Admin Dose 50 MG; Start 05/27/16 at 14:00 Miscellaneous Information 1 ea NOTE XX ; Start 05/27/16 at 18:30 Glucose (Glutose) 15 gm Q15M PRN PO DECREASED GLUCOSE; Start 05/27/16 at 18:30 Glucose (Glutose) 22.5 gm Q15M PRN PO DECREASED GLUCOSE; Start 05/27/16 at 18: 30 Dextrose (D50w Syringe) 25 ml Q15M PRN IV DECREASED GLUCOSE; Start 05/27/16 at 18:30 Dextrose (D50w Syringe) 50 ml Q15M PRN IV DECREASED GLUCOSE; Start 05/27/16 at 18:30 Glucagon (Glucagen) 1 mg Q15M PRN IM DECREASED GLUCOSE; Start 05/27/16 at 18: 30 Glucose (Glutose) 15 gm Q15M PRN BUCCAL DECREASED GLUCOSE; Start 05/27/16 at 18:30 IV Flush (NS 10 ml) 10 ml PRN PRN IV IV PROTOCOL; Start 05/28/16 at 17:30 Prednisone (Prednisone) 40 mg DAILY PO Last administered on 06/14/16 08:55; Admin Dose 40 MG; Start 05/30/16 at 09:00 Morphine Sulfate (morphine) 1 mg Q4H PRN IV PAIN Last administered on 06/14/16 02:47; Admin Dose 1 MG; Start 06/01/16 at 09:30 Docusate Sodium (Colace) 100 mg BID PO Last administered on 06/14/16 08:56; Admin Dose 100 MG; Start 06/01/16 at 21:00 Senna (Senokot) 1 tab BID PRN PO CONSTIPATION Last administered on 06/09/16at 20:29; Admin Dose 1 TAB; Start 12/19/16 at 18:30 Digoxin (Digoxin) 0.125 mg DAILY@13 PO Last administered on 06/06/16at 13:34; Admin Dose 0.125 MG; Start 06/06/16 at 13:00; Status Future Hold Amiodarone HCl (Cordarone) 200 mg DAILY PO Last administered on 06/14/16 08:59 ; Admin Dose 200 MG; Start 06/07/16 at 09:00 Acetylcysteine (Nac) 600 mg BID PO Last administered on 06/14/16 08:55; Admin Dose 600 MG; Start 06/08/16 at 11:00 Enoxaparin Sodium (Lovenox) 80 mg BID SC Last administered on 06/14/16 09:03; Admin Dose 80 MG; Start 06/09/16 at 21:00 Furosemide (Lasix) 40 mg DAILY PO Last administered on 06/14/16 08:56; Admin Dose 40 MG; Start 06/10/16 at 09:00 Metoprolol Tartrate 50 mg 50 mg BID PO Last administered on 06/14/16 08:58; Admin Dose 50 MG; Start 06/10/16 at 21:00 Vancomycin HCl/ Sodium Chloride (Vancocin/NS) 250 ml @ 83.333 mls/ hr Q24H IVPB Last administered on 06/13/16at 16:13; Admin Dose 83.333 MLS/HR; Start at 15:00 Assessment/Plan Chief Complaint/Hosp Course IMPRESSION AND PLAN 1. Chronic obstructive pulmonary disease with chronic hypoxemia. Currently stable 2. Status post acute on chronic hypoxemic with respiratory failure. 3. Congestive cardiac failure. 4. Sinus bradycardia, pending possible pacemaker placement. The patient will require 1. Continued vancomycin for enterococcal urinary tract infection. 2. Continue cardiology recommendations for rate control. 3. Possible pacemaker placement once cleared from infectious disease standpoint. Problems: SIOMARA GARZA MD, [facility] Jun 14, 2016 11:32
[2016-06-14] MEDS ORDERED: POTASSIUM CHLORIDE (SR) 20 MEQ TAB PO STA (12:09)
--- NOTE | 2016-06-14 12:09 | CONS ---
Date/Time of Note Date/Time of Note DATE: 06/14/16 TIME: 12:06 Assessment/Plan Assessment/Plan Additional Assessment/Plan Non-ST elevation MT status post drug-eluting stenting to circumflex 06/01/2016 Respiratory Failure Acute Decompensated Systolic CHF, improving Paroxysmal atrial fibrillation/flutter Transient heart block Acute kidney injury, improving Cardiomyopathy ejection fraction 35% Aortic stenosis, status post transcatheter aortic valve replacement in January 2015. Chronic obstructive pulmonary disease on home oxygen. -Patient doing well from a cardiac standpoint with less shortness of breath and ambulating. Awaiting infectious disease clearance prior to pacemaker placement. As of now, pacemaker scheduled for 06/16/2016, we'll supplement potassium , given renal function has remained normal, will start low-dose CLARIBEL inhibitor. Consultation Date/Type/Reason Admit Date/Time May 26, 2016 at 19:17 Type of Consultation: cv 24 HR Interval Summary Free Text/Dictation Feeling much better, sitting in chair, denies shortness of breath, chest pain or palpitations Exam/Review of Systems Vital Signs Vitals Vital Signs Date Time Temp Pulse Resp B/P Pulse Ox O2 Delivery O2 Flow Rate FiO2 06/14/16 11:22 98.0 60 20 142/65 96 06/14/16 08:00 Nasal Cannula 3.0 Intake and Output 06/13/16 06/13/16 06/14/16 15:00 23:00 07:00 Intake Total 420 ml 240 ml Output Total 360 ml 600 ml Balance 60 ml -360 ml Exam Sitting in chair, no apparent distress Constitutional: alert, frail, oriented Head: normocephalic Neck: supple Respiratory: other (course breath sounds bilaterally, mild scattered rhonchi, no wheezing) Cardiovascular: other (S1-S2 heard), regular rate and rhythm Gastrointestinal: bowel sounds, non-tender, soft Extremities: edema (trace) Results Result Diagram: 06/14/16 0605 06/14/16 0623 Results 24 hrs Laboratory Tests Test 06/13/16 17:32 06/13/16 20:42 06/14/16 06:05 06/14/16 06:23 Bedside Glucose 185 195 Basophils # 0.0 Basophils % 0.4 Blood Morphology Comment Blood Urea Nitrogen 25 H 23 H Creatinine 0.84 0.93 Eosinophils # 0.1 Eosinophils % 0.7 Hematocrit 26.3 L Hemoglobin 8.9 L Lymphocytes # 1.6 Lymphocytes % 21.8 Mean Corpuscular Hemoglobin 32.2 Mean Corpuscular Hemoglobin Concent 33.8 Mean Corpuscular Volume 95.3 Mean Platelet Volume 9.1 Monocytes # 0.7 Monocytes % 10.3 Neutrophils # 4.9 Neutrophils % 66.8 Nucleated Red Blood Cells # 0.0 Nucleated Red Blood Cells % 0.0 Platelet Count 209 Red Blood Count 2.76 L Red Cell Distribution Width 15.9 H White Blood Count 7.3 # Anion Gap 9 Calcium Level 8.0 L Carbon Dioxide Level 34 H Chloride Level 99 Glucose Level 83 # Potassium Level 3.5 Sodium Level 138 Test 06/14/16 07:19 06/14/16 11:56 Bedside Glucose 92 152 Medications Medications Current Medications Aspirin (Halfprin) 81 mg DAILY PO Last administered on 06/14/16 08:58; Admin Dose 81 MG; Start 05/27/16 at 09:00 Clopidogrel Bisulfate (plaVIX) 75 mg DAILY PO Last administered on 06/14/16 08: 55; Admin Dose 75 MG; Start 05/27/16 at 09:00 Ferrous Sulfate (Ferrous Sulfate (Ec)) 325 mg BID PO Last administered on 08:55; Admin Dose 325 MG; Start 05/27/16 at 09:00 Fluticasone Propionate (Flonase 0.05% Nasal) 1 spray BID NASAL Last administered on 06/14/16 08:54; Admin Dose 1 SPRAY; Start 05/27/16 at 09:00 Gabapentin (Neurontin) 300 mg TID PO Last administered on 06/14/16 08:58; Admin Dose 300 MG; Start 05/27/16 at 09:00 Guaifenesin/ Dextromethorphan (Robitussin Dm Liquid Cup) 10 ml Q4H PRN PO COUGH Last administered on 06/14/16 02:09; Admin Dose 10 ML; Start 05/26/16 at 21:30 Montelukast Sodium (Singulair) 10 mg HS PO Last administered on 06/13/16at 20: 43; Admin Dose 10 MG; Start 05/27/16 at 21:00 Oxycodone/ Acetaminophen (Endocet (10/ 325)) 1 tab Q6 PRN PO PAIN; Start 05/26 at 21:30 Salmeterol Xinafoate/ Fluticasone (Advair 500/50 Diskus) 1 inh BID INH Last administered on 06/14/16 08:54; Admin Dose 1 INH; Start 05/27/16 at 09:00 Acetaminophen (Tylenol Tab) 650 mg Q4H PRN PO pain/fever; Start 05/26/16 at 21 :30 Ondansetron HCl (Zofran Inj) 4 mg Q4H PRN IV nausea Last administered on at 17:32; Admin Dose 4 MG; Start 05/26/16 at 21:30 Guaifenesin/ Dextromethorphan (Mucinex Dm) 1 tab BID PO Last administered on 08:55; Admin Dose 1 TAB; Start 05/27/16 at 09:00 Fish Oil (Fish Oil) 1,000 mg DAILY PO Last administered on 06/14/16 08:57; Admin Dose 1,000 MG; Start 05/27/16 at 09:00 Atorvastatin Calcium (Lipitor) 80 mg DAILY@21 PO Last administered on at 20:42; Admin Dose 80 MG; Start 05/27/16 at 00:00 Tramadol HCl (Ultram) 50 mg Q6H PRN PO PAIN Last administered on 06/14/16 02:09 ; Admin Dose 50 MG; Start 05/27/16 at 14:00 Miscellaneous Information 1 ea NOTE XX ; Start 05/27/16 at 18:30 Glucose (Glutose) 15 gm Q15M PRN PO DECREASED GLUCOSE; Start 05/27/16 at 18:30 Glucose (Glutose) 22.5 gm Q15M PRN PO DECREASED GLUCOSE; Start 05/27/16 at 18: 30 Dextrose (D50w Syringe) 25 ml Q15M PRN IV DECREASED GLUCOSE; Start 05/27/16 at 18:30 Dextrose (D50w Syringe) 50 ml Q15M PRN IV DECREASED GLUCOSE; Start 05/27/16 at 18:30 Glucagon (Glucagen) 1 mg Q15M PRN IM DECREASED GLUCOSE; Start 05/27/16 at 18: 30 Glucose (Glutose) 15 gm Q15M PRN BUCCAL DECREASED GLUCOSE; Start 05/27/16 at 18:30 IV Flush (NS 10 ml) 10 ml PRN PRN IV IV PROTOCOL; Start 05/28/16 at 17:30 Prednisone (Prednisone) 40 mg DAILY PO Last administered on 06/14/16 08:55; Admin Dose 40 MG; Start 05/30/16 at 09:00 Morphine Sulfate (morphine) 1 mg Q4H PRN IV PAIN Last administered on 06/14/16 02:47; Admin Dose 1 MG; Start 06/01/16 at 09:30 Docusate Sodium (Colace) 100 mg BID PO Last administered on 06/14/16 08:56; Admin Dose 100 MG; Start 06/01/16 at 21:00 Senna (Senokot) 1 tab BID PRN PO CONSTIPATION Last administered on 06/09/16at 20:29; Admin Dose 1 TAB; Start 06/01/16 at 18:30 Digoxin (Digoxin) 0.125 mg DAILY@13 PO Last administered on 06/06/16 13:34; Admin Dose 0.125 MG; Start 06/06/16 at 13:00; Status Future Hold Amiodarone HCl (Cordarone) 200 mg DAILY PO Last administered on 06/14/16 08:59 ; Admin Dose 200 MG; Start 06/07/16 at 09:00 Acetylcysteine (Nac) 600 mg BID PO Last administered on 06/14/16 08:55; Admin Dose 600 MG; Start 06/08/16 at 11:00 Enoxaparin Sodium (Lovenox) 80 mg BID SC Last administered on 06/14/16 09:03; Admin Dose 80 MG; Start 06/09/16 at 21:00 Furosemide (Lasix) 40 mg DAILY PO Last administered on 06/14/16 08:56; Admin Dose 40 MG; Start 06/10/16 at 09:00 Metoprolol Tartrate 50 mg 50 mg BID PO Last administered on 06/14/16 08:58; Admin Dose 50 MG; Start 06/10/16 at 21:00 Vancomycin HCl/ Sodium Chloride (Vancocin/NS) 250 ml @ 83.333 mls/ hr Q24H IVPB Last administered on 06/13/16at 16:13; Admin Dose 83.333 MLS/HR; Start at 15:00 Calos Peralta DO Jun 14, 2016 12:09
[2016-06-14] MEDS ORDERED: POTASSIUM CHLORIDE (SR) 20 MEQ TAB PO ONE (13:12)
--- NOTE | 2016-06-14 14:17 | CONS ---
Date/Time of Note Date/Time of Note DATE: 06/14/16 TIME: 13:57 Assessment/Plan Assessment/Plan Chief Complaint/Hosp Course ID PROGRESS NOTE ABX Day #3 => Vanco IV 24H INTERVAL SUMMARY * WBC normalized, ESR @ 62 * Awake, doing well, no fevers * Vanco IV -> CoNS (+)BCx on 06/09 ?PICC sepsis = PICC was new put in on 05/26 now DC with new midline * Repeat BCx (-) x2 Specimen: [id number] Status: Resulted Jayshree: 06/11/16 Rcvd: 06/11/16 Source: BLOOD Sp Descrip: Microbiology BLOOD CULTURE Preliminary NO GROWTH AFTER 2 DAYS Jayshree: 06/12/16 Rcvd: 06/12/16 Source: BLOOD Sp Descrip: Microbiology BLOOD CULTURE Preliminary NO GROWTH AFTER 1 DAY PHYSICAL EXAMINATION: GENERAL: 80 yo M HEENT: Unremarkable NECK: Supple. Trachea midline. LUNGS: Chest rise symmetrical, without dyspnea on observation CV: NSR tele ABDOMEN: Soft EXTREMITIES: Warm, RLEXT hematoma, BUEXt ecchymosis ID ASSESSMENT: 1. Systemic inflammatory response syndrome=> WBC normalized, ESR elevated, no fevers 2. Enterococcal urinary tract infection, possibly colonized to #3. 3. Non-ST elevation myocardial infarction,s/p PTCA with stent to the circumflex coronary artery. 4. s/p TAVR and with cardiomyopathy= EF 30% 5. Sick Sinus Syndrome w/ Valvular Atrial fibrillation-> s/p DCCV w/return to Afib, now back in NSR on Amiodarone * Needs pacemaker implant 6. Chronic obstructive pulmonary disease. 6. Acute on chronic kidney disease. 7. 06/09/16 Bacteremia > COAGULASE NEGATIVE STAPH 1/2 bottles = possible from recent inserted PICC line, PICC DC'd w/ new Midline) * Repeat BCx 06/11 and 06/12 both (-) 8. s/p FALL prior to admission w/Acute right posterior 10th through 12th rib fractures and possible acute right ninth rib fracture. * Old spine compression fx on imaging (-)MRSA Nares Screen INVASIVES: PICC -> Inserted 05/26/16, TAVR CURRENT ABX: Vanco IV ID RECOMMENDATIONS/PLAN: Continue current ABX Repeat BCx 06/11 & 06/12 both (-) for bacteremia and Prior PICC line DC'd w/new Midline in place At risk opportunistic CoNS infection due to invasives * I discussed case with Dr. Woods -> he concurs that since concern possible PICC line sepsis source has been DC'd, with negative BCx x2 separate days, that the patient is cleared to proceed to PACER implant. * Continue the patient on Vanco IV during the taylor-op and post op course for a total of 14 days from 06/12/16 start of Vanco IV -> Vanco IV last day 06/25/16. * Rx tonight and tomorrow am = Hibiclens BATH to offload Staph Skin bacteria. . . Problems: Consultation Date/Type/Reason Admit Date/Time May 26, 2016 at 19:17 Initial Consult Date 05/28/16 Type of Consultation: ID Exam/Review of Systems Vital Signs Vitals Vital Signs Date Time Temp Pulse Resp B/P Pulse Ox O2 Delivery O2 Flow Rate FiO2 06/14/16 12:54 56 06/14/16 11:22 98.0 20 142/65 96 06/14/16 08:00 Nasal Cannula 3.0 Intake and Output 06/13/16 06/13/16 06/14/16 15:00 23:00 07:00 Intake Total 420 ml 240 ml Output Total 360 ml 600 ml Balance 60 ml -360 ml Results Result Diagram: 06/14/16 0605 06/14/16 0623 Results 24 hrs Laboratory Tests Test 06/13/16 17:32 06/13/16 20:42 06/14/16 06:05 06/14/16 06:23 Bedside Glucose 185 195 Basophils # 0.0 Basophils % 0.4 Blood Morphology Comment Blood Urea Nitrogen 25 H 23 H Creatinine 0.84 0.93 Eosinophils # 0.1 Eosinophils % 0.7 Hematocrit 26.3 L Hemoglobin 8.9 L Lymphocytes # 1.6 Lymphocytes % 21.8 Mean Corpuscular Hemoglobin 32.2 Mean Corpuscular Hemoglobin Concent 33.8 Mean Corpuscular Volume 95.3 Mean Platelet Volume 9.1 Monocytes # 0.7 Monocytes % 10.3 Neutrophils # 4.9 Neutrophils % 66.8 Nucleated Red Blood Cells # 0.0 Nucleated Red Blood Cells % 0.0 Platelet Count 209 Red Blood Count 2.76 L Red Cell Distribution Width 15.9 H White Blood Count 7.3 # Anion Gap 9 Calcium Level 8.0 L Carbon Dioxide Level 34 H Chloride Level 99 Glucose Level 83 # Potassium Level 3.5 Sodium Level 138 Test 06/14/16 07:19 06/14/16 11:56 Bedside Glucose 92 152 Medications Medications Current Medications Aspirin (Halfprin) 81 mg DAILY PO Last administered on 06/14/16 08:58; Admin Dose 81 MG; Start 05/27/16 at 09:00 Clopidogrel Bisulfate (plaVIX) 75 mg DAILY PO Last administered on 06/14/16 08: 55; Admin Dose 75 MG; Start 05/27/16 at 09:00 Ferrous Sulfate (Ferrous Sulfate (Ec)) 325 mg BID PO Last administered on 08:55; Admin Dose 325 MG; Start 05/27/16 at 09:00 Fluticasone Propionate (Flonase 0.05% Nasal) 1 spray BID NASAL Last administered on 06/14/16 08:54; Admin Dose 1 SPRAY; Start 05/27/16 at 09:00 Gabapentin (Neurontin) 300 mg TID PO Last administered on 06/14/16 13:10; Admin Dose 300 MG; Start 05/27/16 at 09:00 Guaifenesin/ Dextromethorphan (Robitussin Dm Liquid Cup) 10 ml Q4H PRN PO COUGH Last administered on 06/14/16 02:09; Admin Dose 10 ML; Start 05/26/16 at 21:30 Montelukast Sodium (Singulair) 10 mg HS PO Last administered on 06/13/16at 20: 43; Admin Dose 10 MG; Start 05/27/16 at 21:00 Oxycodone/ Acetaminophen (Endocet (10/ 325)) 1 tab Q6 PRN PO PAIN; Start 05/26 at 21:30 Salmeterol Xinafoate/ Fluticasone (Advair 500/50 Diskus) 1 inh BID INH Last administered on 06/14/16 08:54; Admin Dose 1 INH; Start 05/27/16 at 09:00 Acetaminophen (Tylenol Tab) 650 mg Q4H PRN PO pain/fever; Start 05/26/16 at 21 :30 Ondansetron HCl (Zofran Inj) 4 mg Q4H PRN IV nausea Last administered on at 17:32; Admin Dose 4 MG; Start 05/26/16 at 21:30 Guaifenesin/ Dextromethorphan (Mucinex Dm) 1 tab BID PO Last administered on 08:55; Admin Dose 1 TAB; Start 05/27/16 at 09:00 Fish Oil (Fish Oil) 1,000 mg DAILY PO Last administered on 06/14/16 08:57; Admin Dose 1,000 MG; Start 05/27/16 at 09:00 Atorvastatin Calcium (Lipitor) 80 mg DAILY@21 PO Last administered on at 20:42; Admin Dose 80 MG; Start 05/27/16 at 00:00 Tramadol HCl (Ultram) 50 mg Q6H PRN PO PAIN Last administered on 06/14/16 02:09 ; Admin Dose 50 MG; Start 05/27/16 at 14:00 Miscellaneous Information 1 ea NOTE XX ; Start 05/27/16 at 18:30 Glucose (Glutose) 15 gm Q15M PRN PO DECREASED GLUCOSE; Start 05/27/16 at 18:30 Glucose (Glutose) 22.5 gm Q15M PRN PO DECREASED GLUCOSE; Start 05/27/16 at 18: 30 Dextrose (D50w Syringe) 25 ml Q15M PRN IV DECREASED GLUCOSE Last administered on 06/14/16 12:04; Admin Dose 25 ML; Start 05/27/16 at 18:30 Dextrose (D50w Syringe) 50 ml Q15M PRN IV DECREASED GLUCOSE; Start 05/27/16 at 18:30 Glucagon (Glucagen) 1 mg Q15M PRN IM DECREASED GLUCOSE; Start 05/27/16 at 18: 30 Glucose (Glutose) 15 gm Q15M PRN BUCCAL DECREASED GLUCOSE; Start 05/27/16 at 18:30 IV Flush (NS 10 ml) 10 ml PRN PRN IV IV PROTOCOL; Start 05/28/16 at 17:30 Prednisone (Prednisone) 40 mg DAILY PO Last administered on 06/14/16 08:55; Admin Dose 40 MG; Start 05/30/16 at 09:00 Morphine Sulfate (morphine) 1 mg Q4H PRN IV PAIN Last administered on 06/14/16 02:47; Admin Dose 1 MG; Start 06/01/16 at 09:30 Docusate Sodium (Colace) 100 mg BID PO Last administered on 06/14/16 08:56; Admin Dose 100 MG; Start 06/01/16 at 21:00 Senna (Senokot) 1 tab BID PRN PO CONSTIPATION Last administered on 06/09/16at 20:29; Admin Dose 1 TAB; Start 06/01/16 at 18:30 Digoxin (Digoxin) 0.125 mg DAILY@13 PO Last administered on 06/06/16at 13:34; Admin Dose 0.125 MG; Start 06/06/16 at 13:00; Status Future Hold Amiodarone HCl (Cordarone) 200 mg DAILY PO Last administered on 06/14/16 08:59 ; Admin Dose 200 MG; Start 06/07/16 at 09:00 Acetylcysteine (Nac) 600 mg BID PO Last administered on 06/14/16 08:55; Admin Dose 600 MG; Start 06/08/16 at 11:00 Enoxaparin Sodium (Lovenox) 80 mg BID SC Last administered on 06/14/16 09:03; Admin Dose 80 MG; Start 06/09/16 at 21:00 Furosemide (Lasix) 40 mg DAILY PO Last administered on 06/14/16 08:56; Admin Dose 40 MG; Start 06/10/16 at 09:00 Metoprolol Tartrate 50 mg 50 mg BID PO Last administered on 06/14/16 08:58; Admin Dose 50 MG; Start 06/10/16 at 21:00 Vancomycin HCl/ Sodium Chloride (Vancocin/NS) 250 ml @ 83.333 mls/ hr Q24H IVPB Last administered on 06/13/16at 16:13; Admin Dose 83.333 MLS/HR; Start at 15:00 Lisinopril (Zestril) 2.5 mg BID PO ; Start 06/14/16 at 21:00 АННА ROMO NP Jun 14, 2016 14:10
[2016-06-14] MEDS: VANCOMYCIN 1.5 GM in SOD CHLORIDE 0.9% 250 ML IVPB SCH (16:11)
--- NOTE | 2016-06-14 16:33 | PN ---
Date/Time of Note Date/Time of Note DATE: 06/14/16 TIME: 16:30 Assessment/Plan VTE Prophylaxis VTE Prophylaxis Intervention: LMWH Lines/Catheters IV C[facility]ter Type (from [facility] PICC Line Central line still needed: Yes Urinary Cath still in place: No Assessment/Plan Assessment/Plan 1. Hospital day 19 for this 80-year-old man diagnosed with NSTEMI. Recovering well overall, with improving respiratory status. His portable CXR showed no infiltrates. Urine positive 06/09/16 for enterococcus, and now with three blood culture bottles positive for Staph species. * Discussed with BRITTANY Carter (ID). She feels (and Dr. Woods) feel it is safe o proceed with pacemaker implant on 06/16/2016. * I discussed with Mr. Roach and his partner the potential benefit of placing a new PICC line for improved access to continued with blood draws and the antibiotics he needs. 2. NSTEMI s/p TAVR and with cardiomyopathy, troponin up to 13, s/p PTCA with stent to the circumflex coronary artery. Hs is also s/p cardioversion for atrial fibrillation 7 days ago; back in Afib 5 days ago, then converted spontaneously back to sinus rhythm 4 days ago on amiodarone. Echo shows EF 30% . Now apparently stable in sinus rhythm. No other episodes of a-fib. * Contine on oxygen per NC * Diuresis as needed * Add ACEI * Continue Lopressor 3. COPD, O2-dependent: on NC currently and BiPAP PRN * Continue prednisone 40 mg qAM; consider decreasing if pulmonary agreeable. * Nebulizer treatment; continue Advair and Spiriva 4. Acute on chronic kidney disease, now apparently back to baseline 5. S/p accidental fall weekend prior to admission with RLE hematoma, RUE ecchymosis, and right rib fractures * Pain control with Percocet prn and Tramadol PRN * Hb stable and CT right LE noted. Continue to monitor * Continue PT 6. Chronic back pain with acute component now with rib fractures * Percocet and tramadol prn 7. Hypertension * Hold Diovan for hypotension 8. H/o temporal arteritis. No clear evidence of active disease, but currently treated with prednisone. 9. Previous transient ischemic attack. Patient's mental status is stable and at baseline. 10. Prophylaxis: SCDs as tolerated, Protonix for GI protection while on steroids 11. Disposition: Plan for Biventricular pacer +/- ICD as above. Subjective 24 Hr Interval Summary Free Text/Dictation No complaints. Sat in chair for breakfast and lunch. Exam/Review of Systems Vital Signs Vitals Vital Signs Date Time Temp Pulse Resp B/P Pulse Ox O2 Delivery O2 Flow Rate FiO2 06/14/16 16:26 50 06/14/16 15:42 99.1 20 134/63 98 06/14/16 15:22 Nasal Cannula 3.0 Intake and Output 06/13/16 06/13/16 06/14/16 15:00 23:00 07:00 Intake Total 420 ml 240 ml Output Total 360 ml 600 ml Balance 60 ml -360 ml Exam Constitutional: alert, oriented Psych: no complaints Head: normocephalic Eyes: nl conjunctiva ENMT: nl external ears & nose Neck: supple Respiratory: clear to auscultation Cardiovascular: regular rate and rhythm Extremities: other (oozing on left leg; leg is dressed.) Results Result Diagram: 06/14/16 0605 06/14/16 0623 Results 24 hrs Laboratory Tests Test 06/13/16 17:32 06/13/16 20:42 06/14/16 06:05 06/14/16 06:23 Bedside Glucose 185 195 Basophils # 0.0 Basophils % 0.4 Blood Morphology Comment Blood Urea Nitrogen 25 H 23 H Creatinine 0.84 0.93 Eosinophils # 0.1 Eosinophils % 0.7 Hematocrit 26.3 L Hemoglobin 8.9 L Lymphocytes # 1.6 Lymphocytes % 21.8 Mean Corpuscular Hemoglobin 32.2 Mean Corpuscular Hemoglobin Concent 33.8 Mean Corpuscular Volume 95.3 Mean Platelet Volume 9.1 Monocytes # 0.7 Monocytes % 10.3 Neutrophils # 4.9 Neutrophils % 66.8 Nucleated Red Blood Cells # 0.0 Nucleated Red Blood Cells % 0.0 Platelet Count 209 Red Blood Count 2.76 L Red Cell Distribution Width 15.9 H White Blood Count 7.3 # Anion Gap 9 Calcium Level 8.0 L Carbon Dioxide Level 34 H Chloride Level 99 Glucose Level 83 # Potassium Level 3.5 Sodium Level 138 Test 06/14/16 07:19 06/14/16 11:56 Bedside Glucose 92 152 Medications Medications Current Medications Aspirin (Halfprin) 81 mg DAILY PO Last administered on 06/14/16 08:58; Admin Dose 81 MG; Start 05/27/16 at 09:00 Clopidogrel Bisulfate (plaVIX) 75 mg DAILY PO Last administered on 06/14/16 08: 55; Admin Dose 75 MG; Start 05/27/16 at 09:00 Ferrous Sulfate (Ferrous Sulfate (Ec)) 325 mg BID PO Last administered on 08:55; Admin Dose 325 MG; Start 05/27/16 at 09:00 Fluticasone Propionate (Flonase 0.05% Nasal) 1 spray BID NASAL Last administered on 06/14/16 08:54; Admin Dose 1 SPRAY; Start 05/27/16 at 09:00 Gabapentin (Neurontin) 300 mg TID PO Last administered on 06/14/16 13:10; Admin Dose 300 MG; Start 05/27/16 at 09:00 Guaifenesin/ Dextromethorphan (Robitussin Dm Liquid Cup) 10 ml Q4H PRN PO COUGH Last administered on 06/14/16 02:09; Admin Dose 10 ML; Start 05/26/16 at 21:30 Montelukast Sodium (Singulair) 10 mg HS PO Last administered on 06/13/16at 20: 43; Admin Dose 10 MG; Start 05/27/16 at 21:00 Oxycodone/ Acetaminophen (Endocet (10/ 325)) 1 tab Q6 PRN PO PAIN; Start 05/26 at 21:30 Salmeterol Xinafoate/ Fluticasone (Advair 500/50 Diskus) 1 inh BID INH Last administered on 06/14/16 08:54; Admin Dose 1 INH; Start 05/27/16 at 09:00 Acetaminophen (Tylenol Tab) 650 mg Q4H PRN PO pain/fever; Start 05/26/16 at 21 :30 Ondansetron HCl (Zofran Inj) 4 mg Q4H PRN IV nausea Last administered on at 17:32; Admin Dose 4 MG; Start 05/26/16 at 21:30 Guaifenesin/ Dextromethorphan (Mucinex Dm) 1 tab BID PO Last administered on 08:55; Admin Dose 1 TAB; Start 05/27/16 at 09:00 Fish Oil (Fish Oil) 1,000 mg DAILY PO Last administered on 06/14/16 08:57; Admin Dose 1,000 MG; Start 05/27/16 at 09:00 Atorvastatin Calcium (Lipitor) 80 mg DAILY@21 PO Last administered on at 20:42; Admin Dose 80 MG; Start 05/27/16 at 00:00 Tramadol HCl (Ultram) 50 mg Q6H PRN PO PAIN Last administered on 06/14/16 02:09 ; Admin Dose 50 MG; Start 05/27/16 at 14:00 Miscellaneous Information 1 ea NOTE XX ; Start 05/27/16 at 18:30 Glucose (Glutose) 15 gm Q15M PRN PO DECREASED GLUCOSE; Start 05/27/16 at 18:30 Glucose (Glutose) 22.5 gm Q15M PRN PO DECREASED GLUCOSE; Start 05/27/16 at 18: 30 Dextrose (D50w Syringe) 25 ml Q15M PRN IV DECREASED GLUCOSE Last administered on 06/14/16 12:04; Admin Dose 25 ML; Start 05/27/16 at 18:30 Dextrose (D50w Syringe) 50 ml Q15M PRN IV DECREASED GLUCOSE; Start 05/27/16 at 18:30 Glucagon (Glucagen) 1 mg Q15M PRN IM DECREASED GLUCOSE; Start 05/27/16 at 18: 30 Glucose (Glutose) 15 gm Q15M PRN BUCCAL DECREASED GLUCOSE; Start 05/27/16 at 18:30 IV Flush (NS 10 ml) 10 ml PRN PRN IV IV PROTOCOL; Start 05/28/16 at 17:30 Prednisone (Prednisone) 40 mg DAILY PO Last administered on 06/14/16 08:55; Admin Dose 40 MG; Start 05/30/16 at 09:00 Morphine Sulfate (morphine) 1 mg Q4H PRN IV PAIN Last administered on 06/14/16 02:47; Admin Dose 1 MG; Start 06/01/16 at 09:30 Docusate Sodium (Colace) 100 mg BID PO Last administered on 06/14/16 08:56; Admin Dose 100 MG; Start 06/01/16 at 21:00 Senna (Senokot) 1 tab BID PRN PO CONSTIPATION Last administered on 06/09/16at 20:29; Admin Dose 1 TAB; Start 06/01/16 at 18:30 Digoxin (Digoxin) 0.125 mg DAILY@13 PO Last administered on 06/06/16at 13:34; Admin Dose 0.125 MG; Start 06/06/16 at 13:00; Status Future Hold Amiodarone HCl (Cordarone) 200 mg DAILY PO Last administered on 06/14/16 08:59 ; Admin Dose 200 MG; Start 06/07/16 at 09:00 Acetylcysteine (Nac) 600 mg BID PO Last administered on 06/14/16 08:55; Admin Dose 600 MG; Start 06/08/16 at 11:00 Enoxaparin Sodium (Lovenox) 80 mg BID SC Last administered on 06/14/16 09:03; Admin Dose 80 MG; Start 06/09/16 at 21:00 Furosemide (Lasix) 40 mg DAILY PO Last administered on 06/14/16 08:56; Admin Dose 40 MG; Start 06/10/16 at 09:00 Metoprolol Tartrate 50 mg 50 mg BID PO Last administered on 06/14/16 08:58; Admin Dose 50 MG; Start 06/10/16 at 21:00 Vancomycin HCl/ Sodium Chloride (Vancocin/NS) 250 ml @ 83.333 mls/ hr Q24H IVPB Last administered on 06/14/16 16:11; Admin Dose 83.333 MLS/HR; Start at 15:00 Lisinopril (Zestril) 2.5 mg BID PO ; Start 06/14/16 at 21:00 Mupirocin (Bactroban) 1 applic BID TOP ; Start 06/14/16 at 15:00; Stop 06/24/16 at 14:59 HEATHER MORELAND MD Jun 14, 2016 16:33
[2016-06-14] MEDS: MUPIROCIN 2% 22 GM OINT TOP SCH ×2 (17:19→20:39)
--- NOTE | 2016-06-14 20:23 | RADRPT ---
PROCEDURE: XR Chest. CLINICAL INDICATION: PICC line placement TECHNIQUE: Single frontal chest x-ray. COMPARISON: 06/09/2016 FINDINGS: There is right PICC line with tip in the SVC. Heart is enlarged.. Redemonstrated diffuse interstiti al prominence with patchy bilateral infiltrates.. There is no pleural effusion. There is no pneumo thorax. Bones are unchanged including multilevel vertebroplasty cement.. IMPRESSION: Right PICC line tip the SVC. Otherwise no change. RPTAT: [facility]VK .Calos Wyatt MD, Date Time Electronically viewed and signed by .Calos Wyatt MD, on 06/14/2016 20:23 .K/
[2016-06-14] MEDS: ATORVASTATIN 80 MG TAB PO SCH (20:37)
[2016-06-14] MEDS: LISINOPRIL 5 MG TAB PO SCH (20:38)
[2016-06-14] MEDS: MONTELUKAST 10 MG TAB PO SCH (20:38)
[2016-06-15] VITALS (11 sets, daily range): BP systolic 109–124; BP diastolic 53–58; PULSE 52–60; RESP 16–21
[2016-06-15] MEDS: ALBUTEROL/IPRATROPIUM (NEB) 3 ML AMP HHN SCH ×4 (01:55→19:55)
[2016-06-15] MEDS: INSULIN ASPART [NOVOLOG] 3 ML PEN SC SCH ×4 (07:55→21:02)
--- NOTE | 2016-06-15 08:07 | RADRPT ---
PROCEDURE: Ultrasound guidance for placement of needle in right upper extremity vein. CLINICAL INDICATION: Venous access. TECHNIQUE: Limited sonography of the right upper extremity was performed. Ultrasound images were recorded and stored in the patient's medical record. COMPARISON: None. FINDINGS: The ultrasound images demonstrate a patent right upper extremity vein. The PICC line was inserted b y the PICC line nurse. IMPRESSION: 1. Ultrasound guidance for a needle placement in a right upper extremity vein. 2. The visualized right upper extremity vein is patent. RPTAT: QQ .Oscar Jackson MD, MD Date Time Electronically viewed and signed by .Oscar Jackson MD, MD on 06/15/2016 08:06 .R/
[2016-06-15] MEDS: DOCUSATE SODIUM 100 MG CAP PO SCH ×2 (09:00→20:46)
[2016-06-15] MEDS: FLUTICASONE 0.05% 16 GM NAS SPRAY NASAL SCH ×2 (09:53→20:44)
[2016-06-15] MEDS: SALMETEROL/FLUTICASONE 500/50 INHA INH SCH ×2 (09:53→20:45)
[2016-06-15] MEDS: GUAIFENESIN/DM (SR) TAB PO SCH ×2 (09:53→20:44)
[2016-06-15] MEDS: GABAPENTIN 300 MG CAP PO SCH ×3 (09:54→20:44)
[2016-06-15] MEDS: FISH OIL 1,000 MG CAP PO SCH (09:54)
[2016-06-15] MEDS: FUROSEMIDE 40 MG TAB PO SCH (09:54)
[2016-06-15] MEDS: ACETYLCYSTEINE 600 MG CAP PO SCH ×2 (09:54→20:44)
[2016-06-15] MEDS: predniSONE 20 MG TAB PO SCH (09:54)
[2016-06-15] MEDS: CLOPIDOGREL 75 MG TAB PO SCH (09:54)
[2016-06-15] MEDS: ASPIRIN (EC) 81 MG TAB PO SCH (09:55)
[2016-06-15] MEDS: METOPROLOL 50 MG TAB PO SCH ×2 (09:56→20:42)
[2016-06-15] MEDS: FERROUS SULFATE (EC) 325 MG TAB PO SCH ×2 (09:57→20:44)
[2016-06-15] MEDS: AMIODARONE 200 MG TAB PO SCH (09:57)
[2016-06-15] MEDS: LISINOPRIL 5 MG TAB PO SCH ×2 (09:57→20:43)
[2016-06-15] MEDS: MUPIROCIN 2% 22 GM OINT TOP SCH ×2 (09:58→21:03)
[2016-06-15] MEDS: ENOXAPARIN 80 MG/0.8 ML SYG SC SCH (10:14)
[2016-06-15] MEDS: GUAIFENESIN/DM 5ML CUP PO PRN (11:02)
--- NOTE | 2016-06-15 12:01 | PN ---
Date/Time of Note Date/Time of Note DATE: 06/15/16 TIME: 11:59 Assessment/Plan VTE Prophylaxis VTE Prophylaxis Intervention: LMWH Lines/Catheters IV Catheter Type (from Nrsg): PICC Line Central line still needed: Yes Urinary Cath still in place: No Assessment/Plan Assessment/Plan 1. Hospital day 20 for this 80-year-old man diagnosed with NSTEMI and 30 second pause. No oher episodes since then. * Discussed with BRITTANY Carter (ID). She feels (and Dr. Woods) feel it is safe o proceed with pacemaker implant on 06/16/2016. 2. NSTEMI s/p TAVR and with cardiomyopathy, troponin up to 13, s/p PTCA with stent to the circumflex coronary artery. Hs is also s/p cardioversion for atrial fibrillation 7 days ago; back in Afib 5 days ago, then converted spontaneously back to sinus rhythm 4 days ago on amiodarone. Echo shows EF 30% . Now apparently stable in sinus rhythm. No other episodes of a-fib. * Contine on oxygen per NC * Diuresis as needed * Add ACEI * Continue Lopressor 3. COPD, O2-dependent: on NC currently and BiPAP PRN * Continue prednisone 40 mg qAM; consider decreasing if pulmonary agreeable. * Nebulizer treatment; continue Advair and Spiriva 4. Acute on chronic kidney disease, now apparently back to baseline 5. S/p accidental fall weekend prior to admission with RLE hematoma, RUE ecchymosis, and right rib fractures * Pain control with Percocet prn and Tramadol PRN * Hb stable and CT right LE noted. Continue to monitor * Continue PT 6. Chronic back pain with acute component now with rib fractures * Percocet and tramadol prn 7. Hypertension * Hold Diovan for hypotension 8. H/o temporal arteritis. No clear evidence of active disease, but currently treated with prednisone. 9. Previous transient ischemic attack. Patient's mental status is stable and at baseline. 10. Prophylaxis: SCDs as tolerated, Protonix for GI protection while on steroids 11. Disposition: Plan for Biventricular pacer +/- ICD as above. Subjective 24 Hr Interval Summary Free Text/Dictation No complaints. He is awaiting pacemaker in the AM. Exam/Review of Systems Vital Signs Vitals Vital Signs Date Time Temp Pulse Resp B/P Pulse Ox O2 Delivery O2 Flow Rate FiO2 06/15/16 11:50 99.3 63 20 113/53 96 06/15/16 08:14 3.0 06/15/16 08:14 Nasal Cannula Intake and Output 06/14/16 06/14/16 06/15/16 15:00 23:00 07:00 Intake Total 960 ml 300 ml Output Total 400 ml 430 ml Balance 560 ml -130 ml Exam Constitutional: alert, oriented Psych: no complaints Head: normocephalic Eyes: nl conjunctiva ENMT: nl external ears & nose Neck: supple Respiratory: clear to auscultation Cardiovascular: regular rate and rhythm Gastrointestinal: soft Musculoskeletal: nl extremities to inspection Extremities: normal pulses Results Result Diagram: 06/14/16 0605 06/14/16 0623 Results 24 hrs Laboratory Tests Test 06/14/16 17:22 06/14/16 20:22 06/15/16 08:17 Bedside Glucose 216 191 91 Medications Medications Current Medications Aspirin (Halfprin) 81 mg DAILY PO Last administered on 06/15/16 09:55; Admin Dose 81 MG; Start 05/27/16 at 09:00 Clopidogrel Bisulfate (plaVIX) 75 mg DAILY PO Last administered on 06/15/16 09: 54; Admin Dose 75 MG; Start 05/27/16 at 09:00 Ferrous Sulfate (Ferrous Sulfate (Ec)) 325 mg BID PO Last administered on 09:57; Admin Dose 325 MG; Start 05/27/16 at 09:00 Fluticasone Propionate (Flonase 0.05% Nasal) 1 spray BID NASAL Last administered on 06/15/16 09:53; Admin Dose 1 SPRAY; Start 05/27/16 at 09:00 Gabapentin (Neurontin) 300 mg TID PO Last administered on 06/15/16 09:54; Admin Dose 300 MG; Start 05/27/16 at 09:00 Guaifenesin/ Dextromethorphan (Robitussin Dm Liquid Cup) 10 ml Q4H PRN PO COUGH Last administered on 06/15/16 11:02; Admin Dose 10 ML; Start 05/26/16 at 21:30 Montelukast Sodium (Singulair) 10 mg HS PO Last administered on 06/14/16 20:38 ; Admin Dose 10 MG; Start 05/27/16 at 21:00 Oxycodone/ Acetaminophen (Endocet (10/ 325)) 1 tab Q6 PRN PO PAIN; Start 05/26 at 21:30 Salmeterol Xinafoate/ Fluticasone (Advair 500/50 Diskus) 1 inh BID INH Last administered on 06/15/16 09:53; Admin Dose 1 INH; Start 05/27/16 at 09:00 Acetaminophen (Tylenol Tab) 650 mg Q4H PRN PO pain/fever; Start 05/26/16 at 21 :30 Ondansetron HCl (Zofran Inj) 4 mg Q4H PRN IV nausea Last administered on at 17:32; Admin Dose 4 MG; Start 05/26/16 at 21:30 Guaifenesin/ Dextromethorphan (Mucinex Dm) 1 tab BID PO Last administered on 09:53; Admin Dose 1 TAB; Start 05/27/16 at 09:00 Fish Oil (Fish Oil) 1,000 mg DAILY PO Last administered on 06/15/16 09:54; Admin Dose 1,000 MG; Start 05/27/16 at 09:00 Atorvastatin Calcium (Lipitor) 80 mg DAILY@21 PO Last administered on 06/14/16 20:37; Admin Dose 80 MG; Start 05/27/16 at 00:00 Tramadol HCl (Ultram) 50 mg Q6H PRN PO PAIN Last administered on 06/14/16 02:09 ; Admin Dose 50 MG; Start 05/27/16 at 14:00 Miscellaneous Information 1 ea NOTE XX ; Start 05/27/16 at 18:30 Glucose (Glutose) 15 gm Q15M PRN PO DECREASED GLUCOSE; Start 05/27/16 at 18:30 Glucose (Glutose) 22.5 gm Q15M PRN PO DECREASED GLUCOSE; Start 05/27/16 at 18: 30 Dextrose (D50w Syringe) 25 ml Q15M PRN IV DECREASED GLUCOSE Last administered on 06/14/16 12:04; Admin Dose 25 ML; Start 05/27/16 at 18:30 Dextrose (D50w Syringe) 50 ml Q15M PRN IV DECREASED GLUCOSE; Start 05/27/16 at 18:30 Glucagon (Glucagen) 1 mg Q15M PRN IM DECREASED GLUCOSE; Start 05/27/16 at 18: 30 Glucose (Glutose) 15 gm Q15M PRN BUCCAL DECREASED GLUCOSE; Start 05/27/16 at 18:30 IV Flush (NS 10 ml) 10 ml PRN PRN IV IV PROTOCOL; Start 05/28/16 at 17:30 Prednisone (Prednisone) 40 mg DAILY PO Last administered on 06/15/16 09:54; Admin Dose 40 MG; Start 05/30/16 at 09:00 Morphine Sulfate (morphine) 1 mg Q4H PRN IV PAIN Last administered on 06/14/16 21:55; Admin Dose 1 MG; Start 06/01/16 at 09:30 Docusate Sodium (Colace) 100 mg BID PO Last administered on 06/14/16 08:56; Admin Dose 100 MG; Start 06/01/16 at 21:00 Senna (Senokot) 1 tab BID PRN PO CONSTIPATION Last administered on 06/09/16at 20:29; Admin Dose 1 TAB; Start 06/01/16 at 18:30 Digoxin (Digoxin) 0.125 mg DAILY@13 PO Last administered on 06/06/16at 13:34; Admin Dose 0.125 MG; Start 06/06/16 at 13:00; Status Future Hold Amiodarone HCl (Cordarone) 200 mg DAILY PO Last administered on 06/15/16 09:57 ; Admin Dose 200 MG; Start 06/07/16 at 09:00 Acetylcysteine (Nac) 600 mg BID PO Last administered on 06/15/16 09:54; Admin Dose 600 MG; Start 06/08/16 at 11:00 Enoxaparin Sodium (Lovenox) 80 mg BID SC Last administered on 06/15/16 10:14; Admin Dose 80 MG; Start 06/09/16 at 21:00 Furosemide (Lasix) 40 mg DAILY PO Last administered on 06/15/16 09:54; Admin Dose 40 MG; Start 06/10/16 at 09:00 Metoprolol Tartrate 50 mg 50 mg BID PO Last administered on 06/15/16 09:56; Admin Dose 50 MG; Start 06/10/16 at 21:00 Vancomycin HCl/ Sodium Chloride (Vancocin/NS) 250 ml @ 83.333 mls/ hr Q24H IVPB Last administered on 06/14/16 16:11; Admin Dose 83.333 MLS/HR; Start at 15:00 Lisinopril (Zestril) 2.5 mg BID PO Last administered on 06/15/16 09:57; Admin Dose 2.5 MG; Start 06/14/16 at 21:00 Mupirocin (Bactroban) 1 applic BID TOP Last administered on 06/15/16 09:58; Admin Dose 1 APPLIC; Start 06/14/16 at 15:00; Stop 06/24/16 at 14:59 Miscellaneous Information (*Rx Drug Level Order Reminder*) VANCO TROUGH @ 1, 400 ON... ONCE ONCE XX ; Start 06/15/16 at 14:00; Stop 06/15/16 at 14:01 HEATHER MORELAND MD Jun 15, 2016 12:01
--- NOTE | 2016-06-15 12:36 | CONS ---
Date/Time of Note Date/Time of Note DATE: 06/15/16 TIME: 12:34 Assessment/Plan Assessment/Plan Chief Complaint/Hosp Course ID PROGRESS NOTE ABX Day #4 => Vanco IV 24H INTERVAL SUMMARY * New PICC RUEXt after old PICC removed due to (+)BCx SCoNS = Pending Pacemaker insert 06/16/16 * Awake, doing well, no fevers * Vanco IV -> CoNS (+)BCx on 06/09 ?PICC sepsis = PICC was new put in on 05/26 now DC with new midline * Repeat BCx (-) x2 PHYSICAL EXAMINATION: GENERAL: 80 yo M HEENT: Unremarkable NECK: Supple. Trachea midline. LUNGS: Chest rise symmetrical, without dyspnea on observation CV: NSR tele ABDOMEN: Soft EXTREMITIES: Warm, RLEXT hematoma, BUEXt ecchymosis ID ASSESSMENT: 1. Systemic inflammatory response syndrome=> WBC normalized, ESR elevated, no fevers 2. Enterococcal urinary tract infection, possibly colonized to #3. 3. Non-ST elevation myocardial infarction,s/p PTCA with stent to the circumflex coronary artery. 4. s/p TAVR and with cardiomyopathy= EF 30% 5. Sick Sinus Syndrome w/ Valvular Atrial fibrillation-> s/p DCCV w/return to Afib, now back in NSR on Amiodarone * Needs pacemaker implant 6. Chronic obstructive pulmonary disease. 6. Acute on chronic kidney disease. 7. 06/09/16 Bacteremia > COAGULASE NEGATIVE STAPH 1/2 bottles = possible from recent inserted PICC line, PICC DC'd w/ new Midline) * Repeat BCx 06/11 and 06/12 both (-) 8. s/p FALL prior to admission w/Acute right posterior 10th through 12th rib fractures and possible acute right ninth rib fracture. * Old spine compression fx on imaging (-)MRSA Nares Screen INVASIVES: PICC -> Inserted 05/26/16, TAVR CURRENT ABX: Vanco IV ID RECOMMENDATIONS/PLAN: Continue current ABX New PICC RUEXt after old PICC removed due to (+)BCx SCoNS = Pending Pacemaker insert 06/16/16 Repeat BCx (-) X2 separate days = MEDICAL CLEARED FOR PACER Implant At risk opportunistic CoNS infection due to invasives * I discussed case with Dr. Woods -> he concurs that since concern possible PICC line sepsis source has been DC'd, with negative BCx x2 separate days, that the patient is cleared to proceed to PACER implant. * Continue the patient on Vanco IV during the taylor-op and post op course for a total of 14 days from 06/12/16 start of Vanco IV -> Vanco IV last day 06/25/16. * Rx tonight and tomorrow am = Hibiclens BATH to offload Staph Skin bacteria. . . Problems: Consultation Date/Type/Reason Admit Date/Time May 26, 2016 at 19:17 Initial Consult Date 05/28/16 Type of Consultation: ID Exam/Review of Systems Vital Signs Vitals Vital Signs Date Time Temp Pulse Resp B/P Pulse Ox O2 Delivery O2 Flow Rate FiO2 06/15/16 12:20 59 06/15/16 11:50 99.3 20 113/53 96 06/15/16 08:14 3.0 06/15/16 08:14 Nasal Cannula Intake and Output 06/14/16 06/14/16 06/15/16 15:00 23:00 07:00 Intake Total 960 ml 300 ml Output Total 400 ml 430 ml Balance 560 ml -130 ml Results Result Diagram: 06/14/16 0605 06/14/16 0623 Results 24 hrs Laboratory Tests Test 06/14/16 17:22 06/14/16 20:22 06/15/16 08:17 06/15/16 12:03 Bedside Glucose 216 191 91 151 Medications Medications Current Medications Aspirin (Halfprin) 81 mg DAILY PO Last administered on 06/15/16 09:55; Admin Dose 81 MG; Start 05/27/16 at 09:00 Clopidogrel Bisulfate (plaVIX) 75 mg DAILY PO Last administered on 06/15/16 09: 54; Admin Dose 75 MG; Start 05/27/16 at 09:00 Ferrous Sulfate (Ferrous Sulfate (Ec)) 325 mg BID PO Last administered on 09:57; Admin Dose 325 MG; Start 05/27/16 at 09:00 Fluticasone Propionate (Flonase 0.05% Nasal) 1 spray BID NASAL Last administered on 06/15/16 09:53; Admin Dose 1 SPRAY; Start 05/27/16 at 09:00 Gabapentin (Neurontin) 300 mg TID PO Last administered on 06/15/16 09:54; Admin Dose 300 MG; Start 05/27/16 at 09:00 Guaifenesin/ Dextromethorphan (Robitussin Dm Liquid Cup) 10 ml Q4H PRN PO COUGH Last administered on 06/15/16 11:02; Admin Dose 10 ML; Start 05/26/16 at 21:30 Montelukast Sodium (Singulair) 10 mg HS PO Last administered on 06/14/16 20:38 ; Admin Dose 10 MG; Start 05/27/16 at 21:00 Oxycodone/ Acetaminophen (Endocet (10/ 325)) 1 tab Q6 PRN PO PAIN; Start 05/26 at 21:30 Salmeterol Xinafoate/ Fluticasone (Advair 500/50 Diskus) 1 inh BID INH Last administered on 06/15/16 09:53; Admin Dose 1 INH; Start 05/27/16 at 09:00 Acetaminophen (Tylenol Tab) 650 mg Q4H PRN PO pain/fever; Start 05/26/16 at 21 :30 Ondansetron HCl (Zofran Inj) 4 mg Q4H PRN IV nausea Last administered on at 17:32; Admin Dose 4 MG; Start 05/26/16 at 21:30 Guaifenesin/ Dextromethorphan (Mucinex Dm) 1 tab BID PO Last administered on 09:53; Admin Dose 1 TAB; Start 05/27/16 at 09:00 Fish Oil (Fish Oil) 1,000 mg DAILY PO Last administered on 06/15/16 09:54; Admin Dose 1,000 MG; Start 05/27/16 at 09:00 Atorvastatin Calcium (Lipitor) 80 mg DAILY@21 PO Last administered on 06/14/16 20:37; Admin Dose 80 MG; Start 05/27/16 at 00:00 Tramadol HCl (Ultram) 50 mg Q6H PRN PO PAIN Last administered on 06/14/16 02:09 ; Admin Dose 50 MG; Start 05/27/16 at 14:00 Miscellaneous Information 1 ea NOTE XX ; Start 05/27/16 at 18:30 Glucose (Glutose) 15 gm Q15M PRN PO DECREASED GLUCOSE; Start 05/27/16 at 18:30 Glucose (Glutose) 22.5 gm Q15M PRN PO DECREASED GLUCOSE; Start 05/27/16 at 18: 30 Dextrose (D50w Syringe) 25 ml Q15M PRN IV DECREASED GLUCOSE Last administered on 06/14/16 12:04; Admin Dose 25 ML; Start 05/27/16 at 18:30 Dextrose (D50w Syringe) 50 ml Q15M PRN IV DECREASED GLUCOSE; Start 05/27/16 at 18:30 Glucagon (Glucagen) 1 mg Q15M PRN IM DECREASED GLUCOSE; Start 05/27/16 at 18: 30 Glucose (Glutose) 15 gm Q15M PRN BUCCAL DECREASED GLUCOSE; Start 05/27/16 at 18:30 IV Flush (NS 10 ml) 10 ml PRN PRN IV IV PROTOCOL; Start 05/28/16 at 17:30 Prednisone (Prednisone) 40 mg DAILY PO Last administered on 06/15/16 09:54; Admin Dose 40 MG; Start 05/30/16 at 09:00 Morphine Sulfate (morphine) 1 mg Q4H PRN IV PAIN Last administered on 06/14/16 21:55; Admin Dose 1 MG; Start 06/01/16 at 09:30 Docusate Sodium (Colace) 100 mg BID PO Last administered on 06/14/16 08:56; Admin Dose 100 MG; Start 06/01/16 at 21:00 Senna (Senokot) 1 tab BID PRN PO CONSTIPATION Last administered on 06/09/16at 20:29; Admin Dose 1 TAB; Start 06/01/16 at 18:30 Digoxin (Digoxin) 0.125 mg DAILY@13 PO Last administered on 06/06/16at 13:34; Admin Dose 0.125 MG; Start 06/06/16 at 13:00; Status Future Hold Amiodarone HCl (Cordarone) 200 mg DAILY PO Last administered on 06/15/16 09:57 ; Admin Dose 200 MG; Start 06/07/16 at 09:00 Acetylcysteine (Nac) 600 mg BID PO Last administered on 06/15/16 09:54; Admin Dose 600 MG; Start 06/08/16 at 11:00 Enoxaparin Sodium (Lovenox) 80 mg BID SC Last administered on 06/15/16 10:14; Admin Dose 80 MG; Start 06/09/16 at 21:00 Furosemide (Lasix) 40 mg DAILY PO Last administered on 06/15/16 09:54; Admin Dose 40 MG; Start 06/10/16 at 09:00 Metoprolol Tartrate 50 mg 50 mg BID PO Last administered on 06/15/16 09:56; Admin Dose 50 MG; Start 06/10/16 at 21:00 Vancomycin HCl/ Sodium Chloride (Vancocin/NS) 250 ml @ 83.333 mls/ hr Q24H IVPB Last administered on 06/14/16 16:11; Admin Dose 83.333 MLS/HR; Start at 15:00 Lisinopril (Zestril) 2.5 mg BID PO Last administered on 06/15/16 09:57; Admin Dose 2.5 MG; Start 06/14/16 at 21:00 Mupirocin (Bactroban) 1 applic BID TOP Last administered on 06/15/16 09:58; Admin Dose 1 APPLIC; Start 06/14/16 at 15:00; Stop 06/24/16 at 14:59 Miscellaneous Information (*Rx Drug Level Order Reminder*) VANCO TROUGH @ 1, 400 ON... ONCE ONCE XX ; Start 06/15/16 at 14:00; Stop 06/15/16 at 14:01 АННА ROMO NP Jun 15, 2016 12:36
--- NOTE | 2016-06-15 13:04 | CONS ---
Date/Time of Note Date/Time of Note DATE: 06/15/16 TIME: 13:03 Consult Date/Type/Reason Admit Date/Time May 26, 2016 at 19:17 Initial Consult Date 05/28/16 Type of Consultation: Pulm Subjective Comfortable. Objective Vital Signs Date Time Temp Pulse Resp B/P Pulse Ox O2 Delivery O2 Flow Rate FiO2 06/15/16 12:20 59 06/15/16 11:50 99.3 20 113/53 96 06/15/16 08:14 3.0 06/15/16 08:14 Nasal Cannula Intake and Output 06/14/16 06/14/16 06/15/16 15:00 23:00 07:00 Intake Total 960 ml 300 ml Output Total 400 ml 430 ml Balance 560 ml -130 ml PHYSICAL EXAMINATION: VITAL SIGNS: NECK: Supple. No JVD or lymphadenopathy. CARDIAC: S1, S2, no added sounds or murmurs. CHEST: Diminished air entry bilaterally. ABDOMEN: Soft, nontender. No guarding or rebound. EXTREMITIES: No cyanosis, clubbing, or edema. NEUROLOGIC: Grossly intact. No focal deficits. Results/Medications Result Diagram: 06/14/16 0605 06/14/16 0623 Results 24 hrs Laboratory Tests Test 06/14/16 17:22 06/14/16 20:22 06/15/16 08:17 06/15/16 12:03 Bedside Glucose 216 191 91 151 Medications Current Medications Aspirin (Halfprin) 81 mg DAILY PO Last administered on 06/15/16 09:55; Admin Dose 81 MG; Start 05/27/16 at 09:00 Clopidogrel Bisulfate (plaVIX) 75 mg DAILY PO Last administered on 06/15/16 09: 54; Admin Dose 75 MG; Start 05/27/16 at 09:00 Ferrous Sulfate (Ferrous Sulfate (Ec)) 325 mg BID PO Last administered on 09:57; Admin Dose 325 MG; Start 05/27/16 at 09:00 Fluticasone Propionate (Flonase 0.05% Nasal) 1 spray BID NASAL Last administered on 06/15/16 09:53; Admin Dose 1 SPRAY; Start 05/27/16 at 09:00 Gabapentin (Neurontin) 300 mg TID PO Last administered on 06/15/16 09:54; Admin Dose 300 MG; Start 05/27/16 at 09:00 Guaifenesin/ Dextromethorphan (Robitussin Dm Liquid Cup) 10 ml Q4H PRN PO COUGH Last administered on 06/15/16 11:02; Admin Dose 10 ML; Start 05/26/16 at 21:30 Montelukast Sodium (Singulair) 10 mg HS PO Last administered on 06/14/16 20:38 ; Admin Dose 10 MG; Start 05/27/16 at 21:00 Oxycodone/ Acetaminophen (Endocet (10/ 325)) 1 tab Q6 PRN PO PAIN; Start 05/26 at 21:30 Salmeterol Xinafoate/ Fluticasone (Advair 500/50 Diskus) 1 inh BID INH Last administered on 06/15/16 09:53; Admin Dose 1 INH; Start 05/27/16 at 09:00 Acetaminophen (Tylenol Tab) 650 mg Q4H PRN PO pain/fever; Start 05/26/16 at 21 :30 Ondansetron HCl (Zofran Inj) 4 mg Q4H PRN IV nausea Last administered on at 17:32; Admin Dose 4 MG; Start 05/26/16 at 21:30 Guaifenesin/ Dextromethorphan (Mucinex Dm) 1 tab BID PO Last administered on 09:53; Admin Dose 1 TAB; Start 05/27/16 at 09:00 Fish Oil (Fish Oil) 1,000 mg DAILY PO Last administered on 06/15/16 09:54; Admin Dose 1,000 MG; Start 05/27/16 at 09:00 Atorvastatin Calcium (Lipitor) 80 mg DAILY@21 PO Last administered on 06/14/16 20:37; Admin Dose 80 MG; Start 05/27/16 at 00:00 Tramadol HCl (Ultram) 50 mg Q6H PRN PO PAIN Last administered on 06/14/16 02:09 ; Admin Dose 50 MG; Start 05/27/16 at 14:00 Miscellaneous Information 1 ea NOTE XX ; Start 05/27/16 at 18:30 Glucose (Glutose) 15 gm Q15M PRN PO DECREASED GLUCOSE; Start 05/27/16 at 18:30 Glucose (Glutose) 22.5 gm Q15M PRN PO DECREASED GLUCOSE; Start 05/27/16 at 18: 30 Dextrose (D50w Syringe) 25 ml Q15M PRN IV DECREASED GLUCOSE Last administered on 06/14/16 12:04; Admin Dose 25 ML; Start 05/27/16 at 18:30 Dextrose (D50w Syringe) 50 ml Q15M PRN IV DECREASED GLUCOSE; Start 05/27/16 at 18:30 Glucagon (Glucagen) 1 mg Q15M PRN IM DECREASED GLUCOSE; Start 05/27/16 at 18: 30 Glucose (Glutose) 15 gm Q15M PRN BUCCAL DECREASED GLUCOSE; Start 05/27/16 at 18:30 IV Flush (NS 10 ml) 10 ml PRN PRN IV IV PROTOCOL; Start 05/28/16 at 17:30 Prednisone (Prednisone) 40 mg DAILY PO Last administered on 06/15/16 09:54; Admin Dose 40 MG; Start 05/30/16 at 09:00 Morphine Sulfate (morphine) 1 mg Q4H PRN IV PAIN Last administered on 06/14/16 21:55; Admin Dose 1 MG; Start 06/01/16 at 09:30 Docusate Sodium (Colace) 100 mg BID PO Last administered on 06/14/16 08:56; Admin Dose 100 MG; Start 06/01/16 at 21:00 Senna (Senokot) 1 tab BID PRN PO CONSTIPATION Last administered on 06/09/16at 20:29; Admin Dose 1 TAB; Start 06/01/16 at 18:30 Digoxin (Digoxin) 0.125 mg DAILY@13 PO Last administered on 06/06/16at 13:34; Admin Dose 0.125 MG; Start 06/06/16 at 13:00; Status Future Hold Amiodarone HCl (Cordarone) 200 mg DAILY PO Last administered on 06/15/16 09:57 ; Admin Dose 200 MG; Start 06/07/16 at 09:00 Acetylcysteine (Nac) 600 mg BID PO Last administered on 06/15/16 09:54; Admin Dose 600 MG; Start 06/08/16 at 11:00 Enoxaparin Sodium (Lovenox) 80 mg BID SC Last administered on 06/15/16 10:14; Admin Dose 80 MG; Start 06/09/16 at 21:00 Furosemide (Lasix) 40 mg DAILY PO Last administered on 06/15/16 09:54; Admin Dose 40 MG; Start 06/10/16 at 09:00 Metoprolol Tartrate 50 mg 50 mg BID PO Last administered on 06/15/16 09:56; Admin Dose 50 MG; Start 06/10/16 at 21:00 Vancomycin HCl/ Sodium Chloride (Vancocin/NS) 250 ml @ 83.333 mls/ hr Q24H IVPB Last administered on 06/14/16 16:11; Admin Dose 83.333 MLS/HR; Start at 15:00 Lisinopril (Zestril) 2.5 mg BID PO Last administered on 06/15/16 09:57; Admin Dose 2.5 MG; Start 06/14/16 at 21:00 Mupirocin (Bactroban) 1 applic BID TOP Last administered on 06/15/16 09:58; Admin Dose 1 APPLIC; Start 06/14/16 at 15:00; Stop 06/24/16 at 14:59 Miscellaneous Information (*Rx Drug Level Order Reminder*) VANCO TROUGH @ 1, 400 ON... ONCE ONCE XX ; Start 06/15/16 at 14:00; Stop 06/15/16 at 14:01 Assessment/Plan Chief Complaint/Hosp Course IMPRESSION AND PLAN 1. Chronic obstructive pulmonary disease with chronic hypoxemia. Currently stable 2. Status post acute on chronic hypoxemic with respiratory failure. 3. Congestive cardiac failure. 4. Sinus bradycardia, pending possible pacemaker placement. The patient will require 1. Continued vancomycin for enterococcal urinary tract infection. 2. Continue cardiology recommendations for rate control. 3. Pending pacemaker. Problems: SIOMARA GARZA MD, [facility] Jun 15, 2016 13:03
[2016-06-15 14:37] LABS: CREATININE 0.94 mg/dl (0.61-1.24)
[2016-06-15 14:38] LABS: CALCIUM 8.2 mg/dl (8.4-10.2)
[2016-06-15] MEDS: VANCOMYCIN 1.5 GM in SOD CHLORIDE 0.9% 250 ML IVPB SCH (15:51)
--- NOTE | 2016-06-15 16:25 | CONS ---
Date/Time of Note Date/Time of Note DATE: 06/15/16 TIME: 16:23 Assessment/Plan Assessment/Plan Additional Assessment/Plan Non-ST elevation OK status post drug-eluting stenting to circumflex 06/01/2016 Respiratory Failure Acute Decompensated Systolic CHF, improving Paroxysmal atrial fibrillation/flutter Transient heart block Acute kidney injury, improving Cardiomyopathy ejection fraction 35% Aortic stenosis, status post transcatheter aortic valve replacement in January 2015. Chronic obstructive pulmonary disease on home oxygen. -Brief episode of atrial fibrillation noted on telemetry but currently sinus rhythm. Continue beta mayela and amiodarone. Patient hasn't cleared to proceed with pacemaker placement tomorrow. Would hold evening dose of Lovenox. Consultation Date/Type/Reason Admit Date/Time May 26, 2016 at 19:17 Type of Consultation: cv 24 HR Interval Summary Free Text/Dictation Denies shortness of breath, chest pain or palpitations Exam/Review of Systems Vital Signs Vitals Vital Signs Date Time Temp Pulse Resp B/P Pulse Ox O2 Delivery O2 Flow Rate FiO2 06/15/16 16:01 99.3 56 20 109/54 95 06/15/16 14:37 3.0 06/15/16 14:37 Nasal Cannula Intake and Output 06/14/16 06/14/16 06/15/16 15:00 23:00 07:00 Intake Total 960 ml 300 ml Output Total 400 ml 430 ml Balance 560 ml -130 ml Exam Sitting in chair Constitutional: alert, frail, oriented Head: normocephalic Neck: supple Respiratory: other (course breath sounds bilaterally, minimal scattered crackles) Cardiovascular: other (S1-S2 heard), regular rate and rhythm Gastrointestinal: bowel sounds, non-tender, soft Extremities: edema (trace) Results Result Diagram: 06/14/16 0605 06/15/16 1345 Results 24 hrs Laboratory Tests Test 06/14/16 17:22 06/14/16 20:22 06/15/16 08:17 06/15/16 12:03 Bedside Glucose 216 191 91 151 Test 06/15/16 13:45 Anion Gap 12 Blood Urea Nitrogen 21 H Calcium Level 8.2 L Carbon Dioxide Level 33 H Chloride Level 98 Creatinine 0.94 Glucose Level 100 Potassium Level 4.0 Sodium Level 139 Vancomycin Level Trough 18.7 Medications Medications Current Medications Aspirin (Halfprin) 81 mg DAILY PO Last administered on 06/15/16 09:55; Admin Dose 81 MG; Start 05/27/16 at 09:00 Clopidogrel Bisulfate (plaVIX) 75 mg DAILY PO Last administered on 06/15/16 09: 54; Admin Dose 75 MG; Start 05/27/16 at 09:00 Ferrous Sulfate (Ferrous Sulfate (Ec)) 325 mg BID PO Last administered on 09:57; Admin Dose 325 MG; Start 05/27/16 at 09:00 Fluticasone Propionate (Flonase 0.05% Nasal) 1 spray BID NASAL Last administered on 06/15/16 09:53; Admin Dose 1 SPRAY; Start 05/27/16 at 09:00 Gabapentin (Neurontin) 300 mg TID PO Last administered on 06/15/16 13:33; Admin Dose 300 MG; Start 05/27/16 at 09:00 Guaifenesin/ Dextromethorphan (Robitussin Dm Liquid Cup) 10 ml Q4H PRN PO COUGH Last administered on 06/15/16 11:02; Admin Dose 10 ML; Start 05/26/16 at 21:30 Montelukast Sodium (Singulair) 10 mg HS PO Last administered on 06/14/16 20:38 ; Admin Dose 10 MG; Start 05/27/16 at 21:00 Oxycodone/ Acetaminophen (Endocet (10/ 325)) 1 tab Q6 PRN PO PAIN; Start 05/26 at 21:30 Salmeterol Xinafoate/ Fluticasone (Advair 500/50 Diskus) 1 inh BID INH Last administered on 06/15/16 09:53; Admin Dose 1 INH; Start 05/27/16 at 09:00 Acetaminophen (Tylenol Tab) 650 mg Q4H PRN PO pain/fever; Start 05/26/16 at 21 :30 Ondansetron HCl (Zofran Inj) 4 mg Q4H PRN IV nausea Last administered on at 17:32; Admin Dose 4 MG; Start 05/26/16 at 21:30 Guaifenesin/ Dextromethorphan (Mucinex Dm) 1 tab BID PO Last administered on 09:53; Admin Dose 1 TAB; Start 05/27/16 at 09:00 Fish Oil (Fish Oil) 1,000 mg DAILY PO Last administered on 06/15/16 09:54; Admin Dose 1,000 MG; Start 05/27/16 at 09:00 Atorvastatin Calcium (Lipitor) 80 mg DAILY@21 PO Last administered on 06/14/16 20:37; Admin Dose 80 MG; Start 05/27/16 at 00:00 Tramadol HCl (Ultram) 50 mg Q6H PRN PO PAIN Last administered on 06/14/16 02:09 ; Admin Dose 50 MG; Start 05/27/16 at 14:00 Miscellaneous Information 1 ea NOTE XX ; Start 05/27/16 at 18:30 Glucose (Glutose) 15 gm Q15M PRN PO DECREASED GLUCOSE; Start 05/27/16 at 18:30 Glucose (Glutose) 22.5 gm Q15M PRN PO DECREASED GLUCOSE; Start 05/27/16 at 18: 30 Dextrose (D50w Syringe) 25 ml Q15M PRN IV DECREASED GLUCOSE Last administered on 06/14/16 12:04; Admin Dose 25 ML; Start 05/27/16 at 18:30 Dextrose (D50w Syringe) 50 ml Q15M PRN IV DECREASED GLUCOSE; Start 05/27/16 at 18:30 Glucagon (Glucagen) 1 mg Q15M PRN IM DECREASED GLUCOSE; Start 05/27/16 at 18: 30 Glucose (Glutose) 15 gm Q15M PRN BUCCAL DECREASED GLUCOSE; Start 05/27/16 at 18:30 IV Flush (NS 10 ml) 10 ml PRN PRN IV IV PROTOCOL; Start 05/28/16 at 17:30 Prednisone (Prednisone) 40 mg DAILY PO Last administered on 06/15/16 09:54; Admin Dose 40 MG; Start 05/30/16 at 09:00 Morphine Sulfate (morphine) 1 mg Q4H PRN IV PAIN Last administered on 06/14/16 21:55; Admin Dose 1 MG; Start 06/01/16 at 09:30 Docusate Sodium (Colace) 100 mg BID PO Last administered on 06/14/16 08:56; Admin Dose 100 MG; Start 06/01/16 at 21:00 Senna (Senokot) 1 tab BID PRN PO CONSTIPATION Last administered on 06/09/16at 20:29; Admin Dose 1 TAB; Start 06/01/16 at 18:30 Digoxin (Digoxin) 0.125 mg DAILY@13 PO Last administered on 06/06/16at 13:34; Admin Dose 0.125 MG; Start 06/06/16 at 13:00; Status Future Hold Amiodarone HCl (Cordarone) 200 mg DAILY PO Last administered on 06/15/16 09:57 ; Admin Dose 200 MG; Start 06/07/16 at 09:00 Acetylcysteine (Nac) 600 mg BID PO Last administered on 06/15/16 09:54; Admin Dose 600 MG; Start 06/08/16 at 11:00 Enoxaparin Sodium (Lovenox) 80 mg BID SC Last administered on 06/15/16 10:14; Admin Dose 80 MG; Start 06/09/16 at 21:00 Furosemide (Lasix) 40 mg DAILY PO Last administered on 06/15/16 09:54; Admin Dose 40 MG; Start 06/10/16 at 09:00 Metoprolol Tartrate (Lopressor) 50 mg BID PO Last administered on 06/15/16 09: 56; Admin Dose 50 MG; Start 06/10/16 at 21:00 Lisinopril (Zestril) 2.5 mg BID PO Last administered on 06/15/16 09:57; Admin Dose 2.5 MG; Start 06/14/16 at 21:00 Mupirocin 1 applic 1 applic BID TOP Last administered on 06/15/16 09:58; Admin Dose 1 APPLIC; Start 06/14/16 at 15:00; Stop 06/24/16 at 14:59 Vancomycin HCl (Vancocin) 250 ml @ 125 mls/hr Q24H IVPB ; Start 06/15/16 at 23: 00 Calos Peralta DO Jun 15, 2016 16:25
[2016-06-15] MEDS: MONTELUKAST 10 MG TAB PO SCH (20:42)
[2016-06-15] MEDS: ATORVASTATIN 80 MG TAB PO SCH (20:42)
[2016-06-15] MEDS ORDERED: VANCOMYCIN 1.25 GM in SOD CHLORIDE 0.9% 250 ML IVPB SCH (23:00)
[2016-06-15] MEDS: VANCOMYCIN 1 GM in NS 250 ML IVPB SCH (23:05)
[2016-06-16] VITALS (29 sets, daily range): BP systolic 126–175; BP diastolic 48–74; PULSE 55–88; RESP 17–24
[2016-06-16] MEDS: ALBUTEROL/IPRATROPIUM (NEB) 3 ML AMP HHN SCH ×4 (01:52→19:56)
[2016-06-16 07:19] LABS: BASOPHIL # 0.1 10^3/ul (0.0-0.1); BASOPHILS % 0.8 % (0.0-2.0); EOSINOPHILS % 0.3 % (0.0-7.0); HEMATOCRIT 26.2 % (42.0-52.0); HEMOGLOBIN 8.7 g/dl (14.0-18.0); LYMPHOCYTES # 1.4 10^3/ul (0.8-2.9); LYMPHOCYTES % 17.1 % (15.0-51.0); MEAN CORPUSCULAR HEMOGLOBIN 31.7 pg (29.0-33.0); MEAN CORPUSCULAR HGB CONC 33.1 g/dl (32.0-37.0); MEAN CORPUSCULAR VOLUME 95.8 fl (82.0-101.0); MEAN PLATELET VOLUME 9.1 fl (7.4-10.4); MONOCYTE # 0.6 10^3/ul (0.3-0.9); NEUTROPHIL # 6.1 10^3/ul (1.6-7.5); NEUTROPHILS % 74.8 % (39.0-77.0); PLATELET COUNT 218 10^3/UL (140-440); RED BLOOD COUNT 2.74 10^6/ul (4.70-6.10); RED CELL DISTRIBUTION WIDTH 15.8 % (11.5-14.5); UNCORRECTED WBC 8.2 10^3/ul (4.8-10.8); WHITE BLOOD COUNT 8.2 10^3/ul (4.8-10.8)
[2016-06-16 07:20] LABS: CONDITION 1; LH ANALYZER COMMENTS 1
[2016-06-16 07:27] LABS: INR 1.02; POTASSIUM 3.9 mmol/L (3.5-5.1); PROTIME 13.4 Sec (12.2-14.2)
[2016-06-16 07:28] LABS: PARTIAL THROMBOPLASTIN TIME 29.8 Sec (25.0-35.0)
[2016-06-16 07:30] LABS: CREATININE 0.87 mg/dl (0.61-1.24)
[2016-06-16 07:31] LABS: CALCIUM 8.1 mg/dl (8.4-10.2)
[2016-06-16] MEDS: INSULIN ASPART [NOVOLOG] 3 ML PEN SC SCH ×4 (08:10→20:40)
[2016-06-16] MEDS: DOCUSATE SODIUM 100 MG CAP PO SCH ×2 (09:00→20:40)
[2016-06-16] MEDS: FLUTICASONE 0.05% 16 GM NAS SPRAY NASAL SCH ×2 (09:37→20:51)
[2016-06-16] MEDS: SALMETEROL/FLUTICASONE 500/50 INHA INH SCH ×2 (09:37→20:51)
[2016-06-16] MEDS ORDERED: IODIXANOL LOCM 100 ML BTL ONE (09:38)
[2016-06-16] MEDS: GUAIFENESIN/DM (SR) TAB PO SCH ×2 (09:38→20:44)
[2016-06-16] MEDS: FERROUS SULFATE (EC) 325 MG TAB PO SCH ×2 (09:38→20:44)
[2016-06-16] MEDS ORDERED: IODIXANOL LOCM 50 ML BTL ONE (09:38)
[2016-06-16] MEDS: MUPIROCIN 2% 22 GM OINT TOP SCH ×2 (09:38→20:51)
[2016-06-16] MEDS ORDERED: LIDOCAINE 1% (MDV) 20 ML INJ ONE (09:38)
[2016-06-16] MEDS: AMIODARONE 200 MG TAB PO SCH (09:39)
[2016-06-16] MEDS: GABAPENTIN 300 MG CAP PO SCH ×3 (09:39→20:44)
[2016-06-16] MEDS: ASPIRIN (EC) 81 MG TAB PO SCH (09:39)
[2016-06-16] MEDS: CLOPIDOGREL 75 MG TAB PO SCH (09:39)
[2016-06-16] MEDS: FISH OIL 1,000 MG CAP PO SCH (09:39)
[2016-06-16] MEDS: LISINOPRIL 5 MG TAB PO SCH ×2 (09:39→20:45)
[2016-06-16] MEDS: ACETYLCYSTEINE 600 MG CAP PO SCH ×2 (09:39→20:44)
[2016-06-16] MEDS: FUROSEMIDE 40 MG TAB PO SCH (09:40)
[2016-06-16] MEDS: predniSONE 20 MG TAB PO SCH (09:44)
[2016-06-16] MEDS: METOPROLOL 50 MG TAB PO SCH ×2 (09:45→20:44)
[2016-06-16] MEDS ORDERED: SOD CHLORIDE 0.9% 500 ML ONE (10:25)
[2016-06-16] MEDS ORDERED: FENTAnyl 50 MCG/ML VIAL ONE ×2 (10:26→12:12)
[2016-06-16] MEDS ORDERED: MIDAZOLAM 1 MG/ML 2 ML INJ ONE ×4 (10:26→12:56)
[2016-06-16] MEDS ORDERED: POLYMYXIN/BACITRACIN 1L IRRIG IRR SCH (11:30)
[2016-06-16] MEDS ORDERED: OXYCODONE/ACETAMINOPHEN (5/325) TAB PO PRN (12:00)
[2016-06-16] MEDS ORDERED: FENTAnyl 50 MCG/ML VIAL IV PRN (12:00)
[2016-06-16] MEDS ORDERED: ONDANSETRON 4 MG INJ IV PRN (12:00)
[2016-06-16] MEDS ORDERED: MEPERIDINE 25 MG INJ IV PRN (12:00)
[2016-06-16] MEDS ORDERED: METOCLOPRAMIDE 10 MG INJ IV PRN (12:00)
[2016-06-16] MEDS ORDERED: DIPHENHYDRAMINE 50 MG INJ IV PRN (12:00)
[2016-06-16] MEDS ORDERED: LIDOCAINE 1%/EPI 30 ML INJ ONE ×2 (12:26→12:30)
--- NOTE | 2016-06-16 12:34 | PN ---
DATE: 06/16/2016 SUBJECTIVE: No events overnight. No fevers. The patient is alert, feels good, looks comfortable. WBC 8.2, no shift, no bands. BUN 23, creatinine 0.87. ANTIMICROBIALS: 1. Vancomycin with Vancomycin trough yesterday 18.7. MICROBIOLOGY: Repeat blood cultures negative. PHYSICAL EXAMINATION: GENERAL: Well-nourished, well-developed elderly white man who is alert, in no distress. HEENT: Head atraumatic, normocephalic. Sclerae anicteric. Buccal mucosa pink. NECK: Supple, trachea midline. CHEST: Rise symmetrical. Breath sounds clear, diminished to bases. HEART: S1, S2. ABDOMEN: Soft. Bowel tones present. EXTREMITIES: No cyanosis. ASSESSMENT: 1. Enterococcal urinary tract infection. 2. Status post coagulase-negative staph bacteremia on admission. 3. Chronic obstructive pulmonary disease, status post exacerbation. 4. Sick sinus syndrome. 5. Cardiomyopathy. 6. Aortic stenosis, status post aortic valve replacement in January 2015. PLAN: The patient remains stable, scheduled for permanent pacemaker placement. Repeat cultures had been negative. Continue present care. Continue vancomycin until 06/25/2016 to complete treatment. Dictated By: ROSA ISELA DAVIDSON POT RELINER for JAEL QUEZADA/NTS Conf#: [id number] DID#: [id number]
[2016-06-16] MEDS ORDERED: CEFAZOLIN 2 GM/50 ML (PMX) 50 ML IVPB ONE (12:45)
[2016-06-16] MEDS ORDERED: PROPOFOL 20 ML ONE (13:00)
[2016-06-16] MEDS ORDERED: EPHEDrine SULFATE 50 MG/5 ML SYG ONE (13:12)
[2016-06-16] MEDS ORDERED: ACETAMINOPHEN 325 MG TAB PO PRN (14:30)
[2016-06-16] MEDS ORDERED: morphine 2 MG INJ IV PRN (14:30)
--- NOTE | 2016-06-16 15:08 | RADRPT ---
PROCEDURE: XR Chest. CLINICAL INDICATION: Shortness of breath. TECHNIQUE: Single frontal view. COMPARISON: 06/14/2016. FINDINGS: There is patchy bilateral pulmonary air space disease, slightly worse than seen previously consisten t with bilateral multifocal pneumonia. The heart is enlarged. There is calcification in the aorta consistent with atherosclerosis. There is a biventricular pacemaker with internal cardiac defibrillator, new when compared with the prior s tudy. A right arm PICC line remains in satisfactory position. There is no pleural effusion. There is no pneumothorax. IMPRESSION: 1. Bilateral multifocal pneumonia. 2. Cardiomegaly and atherosclerosis. 3. Biventricular pacemaker with internal cardiac defibrillator. 4. No pneumothorax. 5. Right arm PICC line. RPTAT: QQ .Oscar Jackson MD, MD Date Time Electronically viewed and signed by .Oscar Jackson MD, MD on 06/16/2016 15:08 .R/
--- NOTE | 2016-06-16 15:53 | SP ---
DATE OF PROCEDURE: 06/16/2016 NAME OF PROCEDURE: 1. Implantation of biventricular implantable cardioverter defibrillator with both RA lead, right ve ntricular implantable cardioverter defibrillator lead and left ventricular coronary sinus lead place ment. 2. Intracardiac electrocardiogram. 3. Coronary sinus venogram with radiological interpretation. GUITAR MAKER: Humberto Luis MD CLINICAL INDICATIONS: This is a pleasant 80-year-old gentleman with multiple complicated medical hi story including severe cardiomyopathy, ischemic ejection fraction of 35%, who has had sick sinus syn drome and heart block with up to 30 seconds of ventricular pause noted. The patient also had left b undle branch block. Because of his tachybrady and long pauses as mentioned up to 30 seconds associa jake with unresponsiveness/syncope. He would need pacing indication. Because of his left bundle bra nch block and his severe LV dysfunction, the patient needed biventricular pacing. Given his severe ischemic cardiomyopathy, the patient will benefit from biventricular ICD placement. Strictly speaki ng, he has had a recent [place] and intervention done; however, it was felt that his EF would not improve to the point that it would not meet the ICD later on, and it was felt that the patient would not be a candidate to be brought back for another second procedure. After discussion with multiple physic ians, it was in the patient's best interest to place a biventricular ICD now as he is getting the pr ocedure done. He has had paroxysmal atrial fibrillation and flutter and because of the interruption of the anticoagulation, it was felt that better not to do DFT testing at this point. PROCEDURE IN DETAIL: Informed consent was obtained. The risks and benefits discussed with the marlin ent and in detail. This included infection, vascular complication, bleeding complication, M I, stroke, arrhythmia, renal failure, perforation, pneumothorax, hemothorax, anesthesia related comp lications, etc., discussed with the patient in detail. Patient brought to the label rewinder and placed i n supine position on the vent. The patient's left chest area prepped and draped in normal sterile f ashion. Left AC groove was anesthetized with 1% lidocaine with epinephrine. A 4 cm incision was ma de in the AC groove area. Blunt dissection was carried out. Cephalic vein was identified and isola jake. It was cannulated with inferior vena cava. Then, a left subclavian vein was cannulated using micropuncture needle under direct fluoroscopy. The cephalic vein wire was exchanged over the wire with modified Seldinger technique into a 6-[place] sheath. A 2 wire was advanced. As the wire and the sheath was removed and an 8-[place] sheath was advanced in the left cephalic vein. Right ve ntricular lead was advanced and placed in the right ventricular apex. Once a good position was foun d, it was screwed into place. Thresholds were checked with excellent threshold, no diaphragmatic st imulation at 10 volts. Excellent injury pattern. Then, the sheath was peeled away and a second she ath was placed, a 6-[place] over the wire into the cephalic vein. Right atrial lead was placed and a dvanced and in good position. Then right sheath was placed and it was fine and in the intra-articul ar lead was placed in right atrial appendage. Sheath was placed. Excellent threshold was found. B oth leads were tied down with 0 Ethibond. Then 9.5 [place] sheath was placed into the subclavian vei n over the wire. We used the inner and outer catheter. The coronary sinus was cannulated. I used contrast to identify it. Then, another sheath was placed in the coronary sinus. The cannula here w as removed. Balloon was placed into it and angiogram of coronary sinus was found. Wire was advance d and over the wire, the LV lead was placed into the lateral wall. Once a good position was found, the wire was removed. Threshold was checked with excellent threshold. Sheath was peeled away using 2-0 silk [id number] was made around the leads. The leads were tied down. Excellent threshold was found again multiple times. Intracardiac electrocardiogram was obtained. Finally, the pocket was irrigated with antibiotic solution. The device was connected to the leads and placed into the p ocket and tied down with 0 Ethibond. All leads were tied down with 0 Ethibond sutures. The wound w as closed with 1 layer of 2-0 Vicryl and 2 layers of 3-0 Vicryl. Steri-Strip was applied. Pressure as well. Patient was tolerated the procedure without complications. The patient is to be transfer red to recovery room in stable condition. Following information on the device: 1. The device itself is a [employer] Quattro Assure MP biventricular ICD. Right atrial lead is a Te ndril [employer] lead, 52 cm. 2. Right ventricular lead is a Durata 7120 leads. 3. LV lead is a Quattro LV lead. Amplitude is 2.4. Threshold 0.75 x 0.5 millisecond pulse width, impedance of 380, RV amplitude was 8.3, threshold was 0.5 at 0.5 msec. Impedance of 600. LV lead threshold was 1.25 at 0.5 millisecond. No diaphragmatic stimulation was noted at 10 volts. Impedan ce is 7/10. Shock impedance is 31. The device was set at lower rate of 60, upper rate of 120. 4. The tachy zone was as follows: VT monitor zone is 150 to 180. VT zone is 180-200 and VF zone is 200 and above. CONCLUSION: Successful implantation of biventricular implantable cardioverter defibrillator. Dictated By: HUMBERTO LUIS MD AV/LATISHA Conf#: [id number] DID#: [id number] CC: ALLEY ARITA MD; SAIFA OSMAN MD; JOSEFINA MUNIZ DO;*End*
--- NOTE | 2016-06-16 15:54 | CONS ---
Date/Time of Note Date/Time of Note DATE: 06/16/16 TIME: 15:51 Consult Date/Type/Reason Admit Date/Time May 26, 2016 at 19:17 Initial Consult Date 05/28/16 Type of Consultation: Pulm Subjective Comfortable. Post AICD placement. Objective Vital Signs Date Time Temp Pulse Resp B/P Pulse Ox O2 Delivery O2 Flow Rate FiO2 06/16/16 15:17 Nasal Cannula 2.0 06/16/16 15:16 60 19 158/56 100 06/16/16 14:31 99.6 Intake and Output 06/15/16 06/15/16 06/16/16 15:00 23:00 07:00 Intake Total 800 ml 250 ml Output Total 1000 ml 400 ml Balance -200 ml -150 ml Results/Medications Result Diagram: 06/16/16 0710 06/16/16 0710 Results 24 hrs Laboratory Tests Test 06/15/16 17:44 06/15/16 20:34 06/16/16 07:10 06/16/16 07:54 Bedside Glucose 174 201 90 Activated Partial Thromboplast Time 29.8 Anion Gap 12 Basophils # 0.1 Basophils % 0.8 Blood Morphology Comment Blood Urea Nitrogen 23 H Calcium Level 8.1 L Carbon Dioxide Level 33 H Chloride Level 101 Creatinine 0.87 Eosinophils # 0.0 Eosinophils % 0.3 Glucose Level 76 Hematocrit 26.2 L Hemoglobin 8.7 L INR International Normalized Ratio 1.02 Lymphocytes # 1.4 Lymphocytes % 17.1 Mean Corpuscular Hemoglobin 31.7 Mean Corpuscular Hemoglobin Concent 33.1 Mean Corpuscular Volume 95.8 Mean Platelet Volume 9.1 Monocytes # 0.6 Monocytes % 7.0 Neutrophils # 6.1 Neutrophils % 74.8 Nucleated Red Blood Cells # 0.0 Nucleated Red Blood Cells % 0.0 Platelet Count 218 Potassium Level 3.9 Prothrombin Time 13.4 Prothrombin Time Ratio 1.0 Red Blood Count 2.74 L Red Cell Distribution Width 15.8 H Sodium Level 142 White Blood Count 8.2 Test 06/16/16 15:11 Bedside Glucose 131 Medications Current Medications Aspirin (Halfprin) 81 mg DAILY PO Last administered on 06/16/16 09:39; Admin Dose 81 MG; Start 05/27/16 at 09:00 Clopidogrel Bisulfate (plaVIX) 75 mg DAILY PO Last administered on 06/16/16 09: 39; Admin Dose 75 MG; Start 05/27/16 at 09:00 Ferrous Sulfate (Ferrous Sulfate (Ec)) 325 mg BID PO Last administered on 09:38; Admin Dose 325 MG; Start 05/27/16 at 09:00 Fluticasone Propionate (Flonase 0.05% Nasal) 1 spray BID NASAL Last administered on 06/16/16 09:37; Admin Dose 1 SPRAY; Start 05/27/16 at 09:00 Gabapentin (Neurontin) 300 mg TID PO Last administered on 06/16/16 09:39; Admin Dose 300 MG; Start 05/27/16 at 09:00 Guaifenesin/ Dextromethorphan (Robitussin Dm Liquid Cup) 10 ml Q4H PRN PO COUGH Last administered on 06/15/16 11:02; Admin Dose 10 ML; Start 05/26/16 at 21:30 Montelukast Sodium (Singulair) 10 mg HS PO Last administered on 06/15/16 20:42 ; Admin Dose 10 MG; Start 05/27/16 at 21:00 Oxycodone/ Acetaminophen (Endocet (10/ 325)) 1 tab Q6 PRN PO PAIN; Start 05/26 at 21:30 Salmeterol Xinafoate/ Fluticasone (Advair 500/50 Diskus) 1 inh BID INH Last administered on 06/16/16 09:37; Admin Dose 1 INH; Start 05/27/16 at 09:00 Acetaminophen (Tylenol Tab) 650 mg Q4H PRN PO pain/fever; Start 05/26/16 at 21 :30 Ondansetron HCl (Zofran Inj) 4 mg Q4H PRN IV nausea Last administered on at 17:32; Admin Dose 4 MG; Start 05/26/16 at 21:30 Guaifenesin/ Dextromethorphan (Mucinex Dm) 1 tab BID PO Last administered on 09:38; Admin Dose 1 TAB; Start 05/27/16 at 09:00 Fish Oil (Fish Oil) 1,000 mg DAILY PO Last administered on 06/16/16 09:39; Admin Dose 1,000 MG; Start 05/27/16 at 09:00 Atorvastatin Calcium (Lipitor) 80 mg DAILY@21 PO Last administered on 06/15/16 20:42; Admin Dose 80 MG; Start 05/27/16 at 00:00 Tramadol HCl (Ultram) 50 mg Q6H PRN PO PAIN Last administered on 06/14/16 02:09 ; Admin Dose 50 MG; Start 05/27/16 at 14:00 Miscellaneous Information 1 ea NOTE XX ; Start 05/27/16 at 18:30 Glucose (Glutose) 15 gm Q15M PRN PO DECREASED GLUCOSE; Start 05/27/16 at 18:30 Glucose (Glutose) 22.5 gm Q15M PRN PO DECREASED GLUCOSE; Start 05/27/16 at 18: 30 Dextrose (D50w Syringe) 25 ml Q15M PRN IV DECREASED GLUCOSE Last administered on 06/14/16 12:04; Admin Dose 25 ML; Start 05/27/16 at 18:30 Dextrose (D50w Syringe) 50 ml Q15M PRN IV DECREASED GLUCOSE; Start 05/27/16 at 18:30 Glucagon (Glucagen) 1 mg Q15M PRN IM DECREASED GLUCOSE; Start 05/27/16 at 18: 30 Glucose (Glutose) 15 gm Q15M PRN BUCCAL DECREASED GLUCOSE; Start 05/27/16 at 18:30 IV Flush (NS 10 ml) 10 ml PRN PRN IV IV PROTOCOL; Start 05/28/16 at 17:30 Prednisone (Prednisone) 40 mg DAILY PO Last administered on 06/16/16 09:44; Admin Dose 40 MG; Start 05/30/16 at 09:00 Morphine Sulfate (morphine) 1 mg Q4H PRN IV PAIN Last administered on 06/14/16 21:55; Admin Dose 1 MG; Start 06/01/16 at 09:30 Docusate Sodium (Colace) 100 mg BID PO Last administered on 06/14/16 08:56; Admin Dose 100 MG; Start 06/01/16 at 21:00 Senna (Senokot) 1 tab BID PRN PO CONSTIPATION Last administered on 06/09/16at 20:29; Admin Dose 1 TAB; Start 06/01/16 at 18:30 Digoxin (Digoxin) 0.125 mg DAILY@13 PO Last administered on 06/06/16at 13:34; Admin Dose 0.125 MG; Start 06/06/16 at 13:00; Status Future Hold Amiodarone HCl (Cordarone) 200 mg DAILY PO Last administered on 06/16/16 09:39 ; Admin Dose 200 MG; Start 06/07/16 at 09:00 Acetylcysteine (Nac) 600 mg BID PO Last administered on 06/16/16 09:39; Admin Dose 600 MG; Start 06/08/16 at 11:00 Enoxaparin Sodium (Lovenox) 80 mg BID SC Last administered on 06/15/16 10:14; Admin Dose 80 MG; Start 06/09/16 at 21:00; Status Future Hold Furosemide (Lasix) 40 mg DAILY PO Last administered on 06/16/16 09:40; Admin Dose 40 MG; Start 06/10/16 at 09:00 Metoprolol Tartrate (Lopressor) 50 mg BID PO Last administered on 06/16/16 09: 45; Admin Dose 50 MG; Start 06/10/16 at 21:00 Lisinopril (Zestril) 2.5 mg BID PO Last administered on 06/16/16 09:39; Admin Dose 2.5 MG; Start 06/14/16 at 21:00 Mupirocin 1 applic 1 applic BID TOP Last administered on 06/16/16 09:38; Admin Dose 1 APPLIC; Start 06/14/16 at 15:00; Stop 06/24/16 at 14:59 Vancomycin HCl (Vancocin) 250 ml @ 125 mls/hr Q24H IVPB Last administered on 23:05; Admin Dose 125 MLS/HR; Start 06/15/16 at 23:00 Morphine Sulfate (morphine) 2 mg Q2H PRN IV FOR NON CARDIAC PAIN (4-10); Start 06/16/16 at 14:30 Morphine Sulfate 1 mg 1 mg Q1H PRN IV PAIN; Start 06/16/16 at 14:30 Cefazolin Sodium (Ancef 1 Gm/50 ml (Pmx)) 50 ml @ 100 mls/hr Q8 IVPB ; Start at 22:00; Stop 06/17/16 at 14:29 Assessment/Plan Chief Complaint/Hosp Course IMPRESSION AND PLAN 1. Chronic obstructive pulmonary disease with chronic hypoxemia. Currently stable 2. Status post acute on chronic hypoxemic with respiratory failure. 3. Congestive cardiac failure. 4. Sinus bradycardia, s/p AICD The patient will require 1. Continue cardiac recs 2. ID recs 3. PT eval. Problems: SIOMARA GARZA MD, [facility] Jun 16, 2016 15:54
[2016-06-16] MEDS: morphine 2 MG INJ IV PRN ×2 (17:17→20:45)
--- NOTE | 2016-06-16 18:13 | PN ---
Date/Time of Note Date/Time of Note DATE: 06/16/16 TIME: 16:48 Assessment/Plan VTE Prophylaxis VTE Prophylaxis Intervention: LMWH Lines/Catheters IV Catheter Type (from Nrsg): PICC Line Central line still needed: Yes (IV access ) Urinary Cath still in place: No Assessment/Plan Assessment/Plan 80 yo male with: 1. Leukocytosis: resolved with WBC improved back to normal on IV abx S/p BiV/ICD 1/2 coag neg staph, on Vanco and repeat blood cx NGTD Enterococcus UTI also covered with Vanco 2. NSTEMI, patient s/p TAVR and with cardiomyopathy with troponin picked up at 13, S/p PTCA with 1 stent to circ. and now s/p BiV/ICD placement s/p failed cardioversion for Afib, Echo with EF 30% On 2L NC, diuresis prn, stable respiratory status post procedure Continue ASA and Plavix, BBlock 3. Atrial fibrillation/Atrial Flutter, in SR and atrial arrhythmias, sick sinus syndrome s/p BiV/ICD Appreciate Dr Luis's evaluation and recommendations. Holding Eliquis and anticoagulant for now, per Dr Wagoner ok to resume antiplatelets but holding anticoagulant. Continue Amiodarone, Lopressor. 4. COPD, O2 dependent: on 2L NC currently and BiPAP prn Continue Prednisone to 40 daily for now and will taper further slowly back to outpatient dosing. Nebs rx , Advair and Spiriva Discussed with Pulmonology. 5. JOE on CKD: resolved with renal function back down to baseline now Appreciate Dr Cordero's recommendations. Back on Lasix and tolerating well Monitor Renal function, and replete K and mag prn. 6. S/p accidental fall weekend prior to admission with RLE Hematoma and RUE ecchymosis and right rib fractures Pain control with Percocet prn and Tramadol prn Hb stable and CT right LE noted. Continue to monitor and wound care prn 7. Acute on chronic Anemia with hematomas and blood loss: s/p 2 units pRBC around time of admission, stable Hb since then Monitor h/h 8. Chronic back pain with acute component now with rib fractures: Percocet and tramadol prn 9. Hypertension: continue current meds 10. Congestive heart failure, systolic dysfunction EF 30 % on echo. S/p episode of volume overload and respiratory distress requiring BIPAP, Resolved peripheral edema and on 2L NC. On Lasix. 11. Temporal arteritis. The patient is already on prednisone. 12. Previous history of transient ischemic attack. Patient's mental status is stable and at baseline. Monitor Prophylaxis: SCDs as tolerated, PPI for GI ppx while on steroids especially Disposition: On Tele, s/p BiV and ICD placement today, diuresis. Repeat blood cx negative. Repleting K today Subjective 24 Hr Interval Summary Free Text/Dictation Patient doing well post BiV and ICD placement Appreciate ID recs and cardiology Exam/Review of Systems Vital Signs Vitals Vital Signs Date Time Temp Pulse Resp B/P Pulse Ox O2 Delivery O2 Flow Rate FiO2 06/16/16 15:59 98.2 62 20 172/64 96 06/16/16 15:31 Nasal Cannula 2.0 Intake and Output 06/15/16 06/15/16 06/16/16 15:00 23:00 07:00 Intake Total 800 ml 250 ml Output Total 1000 ml 400 ml Balance -200 ml -150 ml Exam Constitutional: alert, frail, oriented Respiratory: diminished breath sounds (bases bilaterally ), normal air movement Cardiovascular: regular rate and rhythm Gastrointestinal: non-tender, soft Musculoskeletal: other Extremities: normal pulses, other (no edema, multiple ecchymosis ) 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: BLACKTOP SPREADER II-XII intact, lethargic, nl mental status, nl speech Skin: ecchymosis (throughout, RLE hematoma) Results Result Diagram: 06/16/16 0710 06/16/16 0710 Results 24 hrs Laboratory Tests Test 06/15/16 17:44 06/15/16 20:34 06/16/16 07:10 06/16/16 07:54 Bedside Glucose 174 201 90 Activated Partial Thromboplast Time 29.8 Anion Gap 12 Basophils # 0.1 Basophils % 0.8 Blood Morphology Comment Blood Urea Nitrogen 23 H Calcium Level 8.1 L Carbon Dioxide Level 33 H Chloride Level 101 Creatinine 0.87 Eosinophils # 0.0 Eosinophils % 0.3 Glucose Level 76 Hematocrit 26.2 L Hemoglobin 8.7 L INR International Normalized Ratio 1.02 Lymphocytes # 1.4 Lymphocytes % 17.1 Mean Corpuscular Hemoglobin 31.7 Mean Corpuscular Hemoglobin Concent 33.1 Mean Corpuscular Volume 95.8 Mean Platelet Volume 9.1 Monocytes # 0.6 Monocytes % 7.0 Neutrophils # 6.1 Neutrophils % 74.8 Nucleated Red Blood Cells # 0.0 Nucleated Red Blood Cells % 0.0 Platelet Count 218 Potassium Level 3.9 Prothrombin Time 13.4 Prothrombin Time Ratio 1.0 Red Blood Count 2.74 L Red Cell Distribution Width 15.8 H Sodium Level 142 White Blood Count 8.2 Test 06/16/16 15:11 Bedside Glucose 131 Medications Medications Current Medications Aspirin (Halfprin) 81 mg DAILY PO Last administered on 06/16/16 09:39; Admin Dose 81 MG; Start 05/27/16 at 09:00 Clopidogrel Bisulfate (plaVIX) 75 mg DAILY PO Last administered on 06/16/16 09: 39; Admin Dose 75 MG; Start 05/27/16 at 09:00 Ferrous Sulfate (Ferrous Sulfate (Ec)) 325 mg BID PO Last administered on 09:38; Admin Dose 325 MG; Start 05/27/16 at 09:00 Fluticasone Propionate (Flonase 0.05% Nasal) 1 spray BID NASAL Last administered on 06/16/16 09:37; Admin Dose 1 SPRAY; Start 05/27/16 at 09:00 Gabapentin (Neurontin) 300 mg TID PO Last administered on 06/16/16 09:39; Admin Dose 300 MG; Start 05/27/16 at 09:00 Guaifenesin/ Dextromethorphan (Robitussin Dm Liquid Cup) 10 ml Q4H PRN PO COUGH Last administered on 06/15/16 11:02; Admin Dose 10 ML; Start 05/26/16 at 21:30 Montelukast Sodium (Singulair) 10 mg HS PO Last administered on 06/15/16 20:42 ; Admin Dose 10 MG; Start 05/27/16 at 21:00 Oxycodone/ Acetaminophen (Endocet (10/ 325)) 1 tab Q6 PRN PO PAIN; Start 05/26 at 21:30 Salmeterol Xinafoate/ Fluticasone (Advair 500/50 Diskus) 1 inh BID INH Last administered on 06/16/16 09:37; Admin Dose 1 INH; Start 05/27/16 at 09:00 Acetaminophen (Tylenol Tab) 650 mg Q4H PRN PO pain/fever; Start 12/13/16 at 21 :30 Ondansetron HCl (Zofran Inj) 4 mg Q4H PRN IV nausea Last administered on at 17:32; Admin Dose 4 MG; Start 05/26/16 at 21:30 Guaifenesin/ Dextromethorphan (Mucinex Dm) 1 tab BID PO Last administered on 09:38; Admin Dose 1 TAB; Start 05/27/16 at 09:00 Fish Oil (Fish Oil) 1,000 mg DAILY PO Last administered on 06/16/16 09:39; Admin Dose 1,000 MG; Start 05/27/16 at 09:00 Atorvastatin Calcium (Lipitor) 80 mg DAILY@21 PO Last administered on 06/15/16 20:42; Admin Dose 80 MG; Start 05/27/16 at 00:00 Tramadol HCl (Ultram) 50 mg Q6H PRN PO PAIN Last administered on 06/14/16 02:09 ; Admin Dose 50 MG; Start 05/27/16 at 14:00 Miscellaneous Information 1 ea NOTE XX ; Start 05/27/16 at 18:30 Glucose (Glutose) 15 gm Q15M PRN PO DECREASED GLUCOSE; Start 05/27/16 at 18:30 Glucose (Glutose) 22.5 gm Q15M PRN PO DECREASED GLUCOSE; Start 05/27/16 at 18: 30 Dextrose (D50w Syringe) 25 ml Q15M PRN IV DECREASED GLUCOSE Last administered on 06/14/16 12:04; Admin Dose 25 ML; Start 05/27/16 at 18:30 Dextrose (D50w Syringe) 50 ml Q15M PRN IV DECREASED GLUCOSE; Start 05/27/16 at 18:30 Glucagon (Glucagen) 1 mg Q15M PRN IM DECREASED GLUCOSE; Start 05/27/16 at 18: 30 Glucose (Glutose) 15 gm Q15M PRN BUCCAL DECREASED GLUCOSE; Start 05/27/16 at 18:30 IV Flush (NS 10 ml) 10 ml PRN PRN IV IV PROTOCOL; Start 05/28/16 at 17:30 Prednisone (Prednisone) 40 mg DAILY PO Last administered on 06/16/16 09:44; Admin Dose 40 MG; Start 05/30/16 at 09:00 Morphine Sulfate (morphine) 1 mg Q4H PRN IV PAIN Last administered on 06/14/16 21:55; Admin Dose 1 MG; Start 06/01/16 at 09:30 Docusate Sodium (Colace) 100 mg BID PO Last administered on 06/14/16 08:56; Admin Dose 100 MG; Start 06/01/16 at 21:00 Senna (Senokot) 1 tab BID PRN PO CONSTIPATION Last administered on 06/09/16at 20:29; Admin Dose 1 TAB; Start 06/01/16 at 18:30 Digoxin (Digoxin) 0.125 mg DAILY@13 PO Last administered on 06/06/16at 13:34; Admin Dose 0.125 MG; Start 06/06/16 at 13:00; Status Future Hold Amiodarone HCl (Cordarone) 200 mg DAILY PO Last administered on 06/16/16 09:39 ; Admin Dose 200 MG; Start 06/07/16 at 09:00 Acetylcysteine (Nac) 600 mg BID PO Last administered on 06/16/16 09:39; Admin Dose 600 MG; Start 06/08/16 at 11:00 Enoxaparin Sodium (Lovenox) 80 mg BID SC Last administered on 06/15/16 10:14; Admin Dose 80 MG; Start 06/09/16 at 21:00; Status Future Hold Furosemide (Lasix) 40 mg DAILY PO Last administered on 06/16/16 09:40; Admin Dose 40 MG; Start 06/10/16 at 09:00 Metoprolol Tartrate (Lopressor) 50 mg BID PO Last administered on 06/16/16 09: 45; Admin Dose 50 MG; Start 06/10/16 at 21:00 Lisinopril (Zestril) 2.5 mg BID PO Last administered on 06/16/16 09:39; Admin Dose 2.5 MG; Start 06/14/16 at 21:00 Mupirocin 1 applic 1 applic BID TOP Last administered on 06/16/16 09:38; Admin Dose 1 APPLIC; Start 06/14/16 at 15:00; Stop 06/24/16 at 14:59 Vancomycin HCl (Vancocin) 250 ml @ 125 mls/hr Q24H IVPB Last administered on 23:05; Admin Dose 125 MLS/HR; Start 06/15/16 at 23:00 Morphine Sulfate (morphine) 2 mg Q2H PRN IV FOR NON CARDIAC PAIN (4-10); Start 06/16/16 at 14:30 Morphine Sulfate 1 mg 1 mg Q1H PRN IV PAIN; Start 06/16/16 at 14:30 Cefazolin Sodium (Ancef 1 Gm/50 ml (Pmx)) 50 ml @ 100 mls/hr Q8 IVPB ; Start at 22:00; Stop 06/17/16 at 14:29 RICHIE SWEET Jun 16, 2016 17:02
[2016-06-16] MEDS: ATORVASTATIN 80 MG TAB PO SCH (20:43)
[2016-06-16] MEDS: MONTELUKAST 10 MG TAB PO SCH (20:44)
[2016-06-16] MEDS: GUAIFENESIN/DM 5ML CUP PO PRN (21:31)
[2016-06-16] MEDS: CEFAZOLIN 1 GM/50 ML (PMX) 50 ML IVPB SCH (21:31)
[2016-06-16] MEDS: VANCOMYCIN 1 GM in NS 250 ML IVPB SCH (22:11)
[2016-06-17] VITALS (12 sets, daily range): BP systolic 100–162; BP diastolic 49–69; PULSE 60–67; RESP 16–18
[2016-06-17] MEDS: morphine 2 MG INJ IV PRN ×2 (00:19→06:01)
[2016-06-17] MEDS: ALBUTEROL/IPRATROPIUM (NEB) 3 ML AMP HHN SCH ×4 (01:31→20:02)
[2016-06-17] MEDS: CEFAZOLIN 1 GM/50 ML (PMX) 50 ML IVPB SCH ×2 (06:01→14:01)
[2016-06-17] MEDS: INSULIN ASPART [NOVOLOG] 3 ML PEN SC SCH ×4 (07:55→22:40)
[2016-06-17 08:45] LABS: BASOPHILS % 0.4 % (0.0-2.0); EOSINOPHILS % 0.4 % (0.0-7.0); HEMATOCRIT 26.7 % (42.0-52.0); HEMOGLOBIN 8.8 g/dl (14.0-18.0); LYMPHOCYTES # 1.3 10^3/ul (0.8-2.9); LYMPHOCYTES % 17.7 % (15.0-51.0); MEAN CORPUSCULAR HEMOGLOBIN 31.2 pg (29.0-33.0); MEAN CORPUSCULAR HGB CONC 33.1 g/dl (32.0-37.0); MEAN CORPUSCULAR VOLUME 94.5 fl (82.0-101.0); MEAN PLATELET VOLUME 8.6 fl (7.4-10.4); MONOCYTE # 0.5 10^3/ul (0.3-0.9); MONOCYTES % 6.7 % (0.0-11.0); NEUTROPHIL # 5.5 10^3/ul (1.6-7.5); NEUTROPHILS % 74.8 % (39.0-77.0); PLATELET COUNT 215 10^3/UL (140-440); RED BLOOD COUNT 2.82 10^6/ul (4.70-6.10); UNCORRECTED WBC 7.4 10^3/ul (4.8-10.8); WHITE BLOOD COUNT 7.4 10^3/ul (4.8-10.8)
[2016-06-17] MEDS: DOCUSATE SODIUM 100 MG CAP PO SCH ×2 (09:00→22:26)
[2016-06-17 09:13] LABS: CONDITION 1; LH ANALYZER COMMENTS 1
[2016-06-17] MEDS: ACETYLCYSTEINE 600 MG CAP PO SCH ×2 (09:13→22:29)
[2016-06-17] MEDS: GABAPENTIN 300 MG CAP PO SCH ×3 (09:13→22:24)
[2016-06-17] MEDS: GUAIFENESIN/DM (SR) TAB PO SCH ×2 (09:13→22:25)
[2016-06-17] MEDS: FISH OIL 1,000 MG CAP PO SCH (09:14)
[2016-06-17] MEDS: AMIODARONE 200 MG TAB PO SCH (09:14)
[2016-06-17] MEDS: FUROSEMIDE 40 MG TAB PO SCH (09:14)
[2016-06-17] MEDS: predniSONE 20 MG TAB PO SCH (09:14)
[2016-06-17] MEDS: ASPIRIN (EC) 81 MG TAB PO SCH (09:14)
[2016-06-17] MEDS: CLOPIDOGREL 75 MG TAB PO SCH (09:14)
[2016-06-17] MEDS: MUPIROCIN 2% 22 GM OINT TOP SCH ×2 (09:15→22:38)
[2016-06-17] MEDS: LISINOPRIL 5 MG TAB PO SCH ×2 (09:15→22:36)
[2016-06-17] MEDS: FERROUS SULFATE (EC) 325 MG TAB PO SCH ×2 (09:15→22:25)
[2016-06-17] MEDS: FLUTICASONE 0.05% 16 GM NAS SPRAY NASAL SCH ×2 (09:15→22:30)
[2016-06-17] MEDS: METOPROLOL 50 MG TAB PO SCH ×2 (09:15→22:38)
[2016-06-17] MEDS: SALMETEROL/FLUTICASONE 500/50 INHA INH SCH ×2 (09:15→22:30)
[2016-06-17 10:03] LABS: POTASSIUM 3.4 mmol/L (3.5-5.1)
[2016-06-17 10:05] LABS: ALBUMIN/GLOBULIN RATIO 0.83; BILIRUBIN,INDIRECT 0.4 mg/dl (0-1.1); BILIRUBIN,TOTAL 0.4 mg/dl (0.2-1.3); CREATININE 0.88 mg/dl (0.61-1.24); TOTAL PROTEIN 6.6 g/dl (6.1-8.1)
[2016-06-17 10:06] LABS: CALCIUM 8.6 mg/dl (8.4-10.2)
--- NOTE | 2016-06-17 10:20 | PN ---
DATE: 06/17/2016 CARDIOLOGY FOLLOWUP SUBJECTIVE: The patient has chest wall tenderness at the site of the device. Denies any palpitatio n. Breathing has remained stable. Discussed with his significant other/. MEDICATIONS: Reviewed. PHYSICAL EXAMINATION: VITAL SIGNS: Temperature 98.7, heart rate of 60 and paced, blood pressure of 160/69, respiratory ra te of 18. HEENT: Normocephalic, atraumatic. Pupils are equal. CARDIOVASCULAR: Regular rate and rhythm. PULMONARY: Diffuse rhonchi. CHEST: Status post ICD with small hematoma. No active bleeding side. GASTROINTESTINAL: Soft, nontender. EXTREMITIES: With trivial edema. NEUROLOGIC: Awake, responds appropriately. LABORATORY: Shows WBC of 7.4, hemoglobin 8.8, platelets of 215. Chest x-ray postoperative showed excellent position of the lead; no pneumothorax. Bilateral pneumon ia. ICD was personally interrogated and reviewed and showed excellent threshold of less than 1 in all 3 leads and good PV and R wave. ASSESSMENT AND PLAN: 1. Sick sinus syndrome/intermittent heart block with episodes of 30 second ventricular pause, now s tatus post biventricular ICD with excellent function. 2. Ischemic cardiomyopathy. 3. Coronary artery disease, status post TX, status post percutaneous coronary intervention. RECOMMENDATIONS: The patient has the device in and will resume the digoxin. Aspirin and Plavix grace l be continued. He has diffuse bruises all over his body and very sensitive to bleeding, already on aspirin and Plavix. At this point, at least, we will hold off on the anticoagulation. Antibiotic is managed as per pulmonary and as per internal medicine and ID's recommendations. The patient has been set up for ICD check next week in my office. Dictated By: HUMBERTO BAXTER MD AV/LATISHA Conf#: [id number] DID#: [id number] CC: RICHIE SWEET MD;*EndCC*
[2016-06-17] MEDS ORDERED: POTASSIUM CHLORIDE (SR) 20 MEQ TAB PO STA (11:03)
--- NOTE | 2016-06-17 11:37 | RADRPT ---
Vent Rate: 60 bpm RR Interval: 0 msec [place] Interval: 0 msec QRS Duration: 156 msec QT Interval: 480 msec QTC Interval: 480 msec P-R-T [place]: 0 - 148 - -30 degrees AV sequential or dual chamber electronic pacemaker Electronically Signed By: John Davis [id number]
--- NOTE | 2016-06-17 11:39 | RADRPT ---
Vent Rate: 60 bpm RR Interval: 0 msec SD Interval: 176 msec QRS Duration: 164 msec QT Interval: 490 msec QTC Interval: 490 msec P-R-T [place]: 0 - 154 - -19 degrees Normal sinus rhythm Ventricular pacemaker Abnormal ECG Electronically Signed By: John Davis [id number]
--- NOTE | 2016-06-17 12:19 | CONS ---
Date/Time of Note Date/Time of Note DATE: 06/17/16 TIME: 12:14 Assessment/Plan Assessment/Plan Additional Assessment/Plan Non-ST elevation MS status post drug-eluting stenting to circumflex 06/01/2016 Respiratory Failure Acute Decompensated Systolic CHF, improving Paroxysmal atrial fibrillation/flutter Transient heart block status post pacemaker 06/16/2016 Acute kidney injury, resolved Cardiomyopathy ejection fraction 35% Aortic stenosis, status post transcatheter aortic valve replacement in January 2015. Chronic obstructive pulmonary disease on home oxygen. -Patient doing well status post pacemaker. He does have a hematoma at the site likely secondary to antiplatelet therapy and anticoagulants. Would continue to hold anticoagulation, continue aspirin and Plavix. Would increase dose of lisinopril given blood pressure. Supplement potassium to maintain above 4.0 and magnesium above 2.0. Consultation Date/Type/Reason Admit Date/Time May 26, 2016 at 19:17 Type of Consultation: cv 24 HR Interval Summary Free Text/Dictation Patient denies shortness of breath, does have discomfort at the pacemaker site. Otherwise denies chest pain. Exam/Review of Systems Vital Signs Vitals Vital Signs Date Time Temp Pulse Resp B/P Pulse Ox O2 Delivery O2 Flow Rate FiO2 06/17/16 11:51 97.8 60 18 118/58 98 06/17/16 10:19 Nasal Cannula 3.0 32 Intake and Output 06/16/16 06/16/16 06/17/16 15:00 23:00 07:00 Intake Total 250 ml 250 ml Output Total 400 ml 400 ml Balance -150 ml -150 ml Exam No apparent distress Constitutional: alert, frail, oriented Head: normocephalic Neck: supple Respiratory: other (course breath sounds bilaterally with minimal scattered crackles. No wheezing) Cardiovascular: other (S1-S2 heard), regular rate and rhythm Gastrointestinal: bowel sounds, non-tender, soft Musculoskeletal: other (left upper chest pacemaker generator site with hematoma ) Extremities: other (no edema) Results Result Diagram: 06/17/16 0820 06/17/16 0830 Results 24 hrs Laboratory Tests Test 06/16/16 15:11 06/16/16 17:38 06/16/16 20:36 06/17/16 07:46 Bedside Glucose 131 131 164 89 Test 06/17/16 08:20 06/17/16 08:30 06/17/16 11:41 Basophils # 0.0 Basophils % 0.4 Blood Morphology Comment Eosinophils # 0.0 Eosinophils % 0.4 Hematocrit 26.7 L Hemoglobin 8.8 L Lymphocytes # 1.3 Lymphocytes % 17.7 Mean Corpuscular Hemoglobin 31.2 Mean Corpuscular Hemoglobin Concent 33.1 Mean Corpuscular Volume 94.5 Mean Platelet Volume 8.6 Monocytes # 0.5 Monocytes % 6.7 Neutrophils # 5.5 Neutrophils % 74.8 Nucleated Red Blood Cells # 0.0 Nucleated Red Blood Cells % 0.0 Platelet Count 215 Red Blood Count 2.82 L Red Cell Distribution Width 16.0 H White Blood Count 7.4 Alanine Aminotransferase (ALT/SGPT) 48 Albumin 3.0 L Albumin/Globulin Ratio 0.83 Alkaline Phosphatase 54 Anion Gap 15 Aspartate Amino Transf (AST/SGOT) 49 H Blood Urea Nitrogen 23 H Calcium Level 8.6 Carbon Dioxide Level 29 Chloride Level 105 Creatinine 0.88 Direct Bilirubin 0.00 Globulin 3.60 H Glucose Level 82 Indirect Bilirubin 0.4 Magnesium Level 1.9 Potassium Level 3.4 L Sodium Level 146 H Total Bilirubin 0.4 Total Protein 6.6 Bedside Glucose 132 Medications Medications Current Medications Aspirin (Halfprin) 81 mg DAILY PO Last administered on 06/17/16 09:14; Admin Dose 81 MG; Start 05/27/16 at 09:00 Clopidogrel Bisulfate (plaVIX) 75 mg DAILY PO Last administered on 06/17/16 09: 14; Admin Dose 75 MG; Start 05/27/16 at 09:00 Ferrous Sulfate (Ferrous Sulfate (Ec)) 325 mg BID PO Last administered on 09:15; Admin Dose 325 MG; Start 05/27/16 at 09:00 Fluticasone Propionate (Flonase 0.05% Nasal) 1 spray BID NASAL Last administered on 06/17/16 09:15; Admin Dose 1 SPRAY; Start 05/27/16 at 09:00 Gabapentin (Neurontin) 300 mg TID PO Last administered on 06/17/16 09:13; Admin Dose 300 MG; Start 05/27/16 at 09:00 Guaifenesin/ Dextromethorphan (Robitussin Dm Liquid Cup) 10 ml Q4H PRN PO COUGH Last administered on 06/16/16 21:31; Admin Dose 10 ML; Start 05/26/16 at 21:30 Montelukast Sodium (Singulair) 10 mg HS PO Last administered on 06/16/16 20:44 ; Admin Dose 10 MG; Start 05/27/16 at 21:00 Oxycodone/ Acetaminophen (Endocet (10/ 325)) 1 tab Q6 PRN PO PAIN Last administered on 06/17/16 09:21; Admin Dose 1 TAB; Start 05/26/16 at 21:30 Salmeterol Xinafoate/ Fluticasone (Advair 500/50 Diskus) 1 inh BID INH Last administered on 06/17/16 09:15; Admin Dose 1 INH; Start 05/27/16 at 09:00 Acetaminophen (Tylenol Tab) 650 mg Q4H PRN PO pain/fever; Start 05/26/16 at 21 :30 Ondansetron HCl (Zofran Inj) 4 mg Q4H PRN IV nausea Last administered on at 17:32; Admin Dose 4 MG; Start 05/26/16 at 21:30 Guaifenesin/ Dextromethorphan (Mucinex Dm) 1 tab BID PO Last administered on 09:13; Admin Dose 1 TAB; Start 05/27/16 at 09:00 Fish Oil (Fish Oil) 1,000 mg DAILY PO Last administered on 06/17/16 09:14; Admin Dose 1,000 MG; Start 05/27/16 at 09:00 Atorvastatin Calcium (Lipitor) 80 mg DAILY@21 PO Last administered on 06/16/16 20:43; Admin Dose 80 MG; Start 05/27/16 at 00:00 Tramadol HCl (Ultram) 50 mg Q6H PRN PO PAIN Last administered on 06/14/16 02:09 ; Admin Dose 50 MG; Start 05/27/16 at 14:00 Miscellaneous Information 1 ea NOTE XX ; Start 05/27/16 at 18:30 Glucose (Glutose) 15 gm Q15M PRN PO DECREASED GLUCOSE; Start 05/27/16 at 18:30 Glucose (Glutose) 22.5 gm Q15M PRN PO DECREASED GLUCOSE; Start 05/27/16 at 18: 30 Dextrose (D50w Syringe) 25 ml Q15M PRN IV DECREASED GLUCOSE Last administered on 1/1/17at 12:04; Admin Dose 25 ML; Start 05/27/16 at 18:30 Dextrose (D50w Syringe) 50 ml Q15M PRN IV DECREASED GLUCOSE; Start 05/27/16 at 18:30 Glucagon (Glucagen) 1 mg Q15M PRN IM DECREASED GLUCOSE; Start 05/27/16 at 18: 30 Glucose (Glutose) 15 gm Q15M PRN BUCCAL DECREASED GLUCOSE; Start 05/27/16 at 18:30 IV Flush (NS 10 ml) 10 ml PRN PRN IV IV PROTOCOL; Start 05/28/16 at 17:30 Prednisone (Prednisone) 40 mg DAILY PO Last administered on 06/17/16 09:14; Admin Dose 40 MG; Start 05/30/16 at 09:00 Morphine Sulfate (morphine) 1 mg Q4H PRN IV PAIN Last administered on 06/14/16 21:55; Admin Dose 1 MG; Start 06/01/16 at 09:30 Docusate Sodium (Colace) 100 mg BID PO Last administered on 06/14/16 08:56; Admin Dose 100 MG; Start 06/01/16 at 21:00 Senna (Senokot) 1 tab BID PRN PO CONSTIPATION Last administered on 06/09/16at 20:29; Admin Dose 1 TAB; Start 06/01/16 at 18:30 Digoxin (Digoxin) 0.125 mg DAILY@13 PO Last administered on 06/06/16at 13:34; Admin Dose 0.125 MG; Start 06/06/16 at 13:00; Status Future hold Amiodarone HCl (Cordarone) 200 mg DAILY PO Last administered on 06/17/16 09:14 ; Admin Dose 200 MG; Start 06/07/16 at 09:00 Acetylcysteine (Nac) 600 mg BID PO Last administered on 06/17/16 09:13; Admin Dose 600 MG; Start 06/08/16 at 11:00 Enoxaparin Sodium (Lovenox) 80 mg BID SC Last administered on 06/15/16 10:14; Admin Dose 80 MG; Start 06/09/16 at 21:00; Status Future Hold Furosemide (Lasix) 40 mg DAILY PO Last administered on 06/17/16 09:14; Admin Dose 40 MG; Start 06/10/16 at 09:00 Metoprolol Tartrate (Lopressor) 50 mg BID PO Last administered on 06/17/16 09: 15; Admin Dose 50 MG; Start 06/10/16 at 21:00 Mupirocin 1 applic 1 applic BID TOP Last administered on 06/17/16 09:15; Admin Dose 1 APPLIC; Start 06/14/16 at 15:00; Stop 06/24/16 at 14:59 Vancomycin HCl (Vancocin) 250 ml @ 125 mls/hr Q24H IVPB Last administered on 22:11; Admin Dose 125 MLS/HR; Start 06/15/16 at 23:00 Morphine Sulfate (morphine) 2 mg Q2H PRN IV FOR NON CARDIAC PAIN (4-10) Last administered on 06/17/16 06:01; Admin Dose 2 MG; Start 06/16/16 at 14:30 Morphine Sulfate 1 mg 1 mg Q1H PRN IV PAIN; Start 06/16/16 at 14:30 Cefazolin Sodium (Ancef 1 Gm/50 ml (Pmx)) 50 ml @ 100 mls/hr Q8 IVPB Last administered on 06/17/16 06:01; Admin Dose 100 MLS/HR; Start 06/16/16 at 22:00; Stop 06/17/16 at 14:29 Lisinopril 5 mg 5 mg BID PO ; Start 06/17/16 at 21:00; Status UNV Magnesium Sulfate/ Dextrose (Magnesium Sulfate 1 Gm/D5W) 100 ml @ 100 mls/hr ONCE ONCE IVPB ; Start 06/17/16 at 12:30; Stop 06/17/16 at 13:29; Status UNV Calos Peralta DO Jun 17, 2016 12:19
--- NOTE | 2016-06-17 12:21 | PN ---
DATE: 06/17/2016 SUBJECTIVE: No changes overnight. Patient is alert, feels good, still has some soreness at the per manent pacemaker site. He is in no distress, no fevers. LABORATORY DATA: WBC 7.4, no shift, no bands. MICROBIOLOGY: Blood cultures remain negative. DIAGNOSTICS: Chest x-ray from yesterday revealed no pneumothorax, post PICC line placement. INDWELLINGS: Permanent pacemaker and right upper extremity PICC line. ANTIMICROBIALS: 1. Vancomycin. 2. Abscess, post and preoperatively. Vancomycin level 18.7 on 06/15/2016. PHYSICAL EXAMINATION: GENERAL: Fragile, elderly man who is alert, in no distress. HEENT: Head atraumatic, normocephalic. Sclerae anicteric. Buccal mucosa pink. NECK: Supple, trachea midline. CHEST: Rise symmetrical. Breath sounds clear with scattered crackles to bases. HEART: S1, S2. ABDOMEN: Soft, bowel tones present. EXTREMITIES: No cyanosis. ASSESSMENT: 1. Status post coagulase-negative Staphylococcus bacteremia and enterococcal urinary tract infectio n. 2. Chronic obstructive pulmonary disease. 3. Sick sinus syndrome, status post permanent pacemaker placement. 4. Aortic stenosis, status post aortic valve replacement in January 2015. PLAN: The patient remains stable, completing antibiotics. Continue present care. Follow cardiolog y recommendations. Dictated By: ROSA ISELA DAVIDSON LABORATORY ASSOCIATE for JAEL QUEZADA/LATISHA Conf#: [id number] DID#: [id number]
[2016-06-17] MEDS: DIGOXIN 0.125 MG TAB PO SCH (12:40)
--- NOTE | 2016-06-17 13:23 | PN ---
Date/Time of Note Date/Time of Note DATE: 06/17/16 TIME: 12:39 Assessment/Plan VTE Prophylaxis VTE Prophylaxis Intervention: SCD's Lines/Catheters IV Catheter Type (from Nrsg): PICC Line Central line still needed: Yes (for IV access ) Urinary Cath still in place: No Assessment/Plan Assessment/Plan 80 yo male with: 1. Leukocytosis: resolved with WBC improved back to normal, 1/2 coag neg staph but repeat blood cx NGTD and Enterococcus UTI also, both covered with Vanco S/p BiV/ICD 2. NSTEMI, patient s/p TAVR and with cardiomyopathy, s/p PTCA with 1 stent to circ., EF 30% and now s/p BiV/ICD placement On 2L NC, stable respiratory status post procedure Continue ASA and Plavix, BBlock 3. Atrial fibrillation/Atrial Flutter, in SR and atrial arrhythmias, sick sinus syndrome, s/p failed cardioversion for Afib. POD#1 s/p BiV/ICD Appreciate Dr Luis's recommendations. Holding Eliquis and anticoagulant for now, per Dr Wagoner ok to resume antiplatelets but holding anticoagulant. Continue Amiodarone, Lopressor and titrate to HR control. 4. COPD, O2 dependent: on 2L NC currently and BiPAP prn Continue Prednisone to 40 daily for now and will taper further slowly back to outpatient dosing. Nebs rx , Advair and Spiriva Discussed with Pulmonology. 5. JOE on CKD: resolved with renal function back down to baseline now Appreciate Dr Cordero's recommendations. Continue diuresis and monitor electrolytes, renal function and volume status. Replete K today 6. S/p accidental fall weekend prior to admission with RLE Hematoma and RUE ecchymosis and right rib fractures Pain control with Percocet prn and Tramadol prn Hb stable and CT right LE noted. Continue to monitor and wound care prn 7. Acute on chronic Anemia with hematomas and blood loss: s/p 2 units pRBC around time of admission, Hb 8.8 today, unchanged from yesterday. Monitor h/h 8. Chronic back pain with acute component now with rib fractures: Percocet and tramadol prn 9. Hypertension: continue current meds 10. Congestive heart failure, systolic dysfunction EF 30 % on echo. S/p episode of volume overload and respiratory distress requiring BIPAP, Resolved peripheral edema and on 2L NC. CXR with ? some element of pulmonary edema, continue Lasix. 11. Temporal arteritis. The patient is already on prednisone. 12. Previous history of transient ischemic attack. Patient's mental status is stable and at baseline. Monitor Prophylaxis: SCDs as tolerated, PPI for GI ppx while on steroids especially Disposition: On Tele, s/p BiV and ICD placement yesterday, diuresis. Repeat blood cx negative. Repleting K today Subjective 24 Hr Interval Summary Free Text/Dictation Patient remains stable, some urinary frequency since removal of [place], also on Lasix Some VALENZUELA Afebrile and WBC wnl, Hb stable from yesterday Exam/Review of Systems Vital Signs Vitals Vital Signs Date Time Temp Pulse Resp B/P Pulse Ox O2 Delivery O2 Flow Rate FiO2 06/17/16 12:38 60 06/17/16 11:51 97.8 18 118/58 98 06/17/16 10:19 Nasal Cannula 3.0 32 Intake and Output 06/16/16 06/16/16 06/17/16 15:00 23:00 07:00 Intake Total 250 ml 250 ml Output Total 400 ml 400 ml Balance -150 ml -150 ml Exam Constitutional: alert, frail, oriented Respiratory: congested cough, diminished breath sounds (bases ), normal air movement Gastrointestinal: non-tender, soft Musculoskeletal: other (multiple ecchymosis, trace LE edema bilaterally ) Extremities: normal pulses, other (right LE with hematoma improving ) 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: CREDIT COLLECTOR II-XII intact, nl mental status, nl speech, other ( generalised weakness ) Skin: ecchymosis (througouht Lower ext and Upper ext bilaterally ) Results Result Diagram: 06/17/16 0820 06/17/16 0830 Results 24 hrs Laboratory Tests Test 06/16/16 15:11 06/16/16 17:38 06/16/16 20:36 06/17/16 07:46 Bedside Glucose 131 131 164 89 Test 06/17/16 08:20 06/17/16 08:30 06/17/16 11:41 Basophils # 0.0 Basophils % 0.4 Blood Morphology Comment Eosinophils # 0.0 Eosinophils % 0.4 Hematocrit 26.7 L Hemoglobin 8.8 L Lymphocytes # 1.3 Lymphocytes % 17.7 Mean Corpuscular Hemoglobin 31.2 Mean Corpuscular Hemoglobin Concent 33.1 Mean Corpuscular Volume 94.5 Mean Platelet Volume 8.6 Monocytes # 0.5 Monocytes % 6.7 Neutrophils # 5.5 Neutrophils % 74.8 Nucleated Red Blood Cells # 0.0 Nucleated Red Blood Cells % 0.0 Platelet Count 215 Red Blood Count 2.82 L Red Cell Distribution Width 16.0 H White Blood Count 7.4 Alanine Aminotransferase (ALT/SGPT) 48 Albumin 3.0 L Albumin/Globulin Ratio 0.83 Alkaline Phosphatase 54 Anion Gap 15 Aspartate Amino Transf (AST/SGOT) 49 H Blood Urea Nitrogen 23 H Calcium Level 8.6 Carbon Dioxide Level 29 Chloride Level 105 Creatinine 0.88 Direct Bilirubin 0.00 Globulin 3.60 H Glucose Level 82 Indirect Bilirubin 0.4 Magnesium Level 1.9 Potassium Level 3.4 L Sodium Level 146 H Total Bilirubin 0.4 Total Protein 6.6 Bedside Glucose 132 Medications Medications Current Medications Aspirin (Halfprin) 81 mg DAILY PO Last administered on 06/17/16 09:14; Admin Dose 81 MG; Start 05/27/16 at 09:00 Clopidogrel Bisulfate (plaVIX) 75 mg DAILY PO Last administered on 06/17/16 09: 14; Admin Dose 75 MG; Start 05/27/16 at 09:00 Ferrous Sulfate (Ferrous Sulfate (Ec)) 325 mg BID PO Last administered on 09:15; Admin Dose 325 MG; Start 05/27/16 at 09:00 Fluticasone Propionate (Flonase 0.05% Nasal) 1 spray BID NASAL Last administered on 06/17/16 09:15; Admin Dose 1 SPRAY; Start 05/27/16 at 09:00 Gabapentin (Neurontin) 300 mg TID PO Last administered on 06/17/16 09:13; Admin Dose 300 MG; Start 05/27/16 at 09:00 Guaifenesin/ Dextromethorphan (Robitussin Dm Liquid Cup) 10 ml Q4H PRN PO COUGH Last administered on 06/16/16 21:31; Admin Dose 10 ML; Start 05/26/16 at 21:30 Montelukast Sodium (Singulair) 10 mg HS PO Last administered on 06/16/16 20:44 ; Admin Dose 10 MG; Start 05/27/16 at 21:00 Oxycodone/ Acetaminophen (Endocet (10/ 325)) 1 tab Q6 PRN PO PAIN Last administered on 06/17/16 09:21; Admin Dose 1 TAB; Start 05/26/16 at 21:30 Salmeterol Xinafoate/ Fluticasone (Advair 500/50 Diskus) 1 inh BID INH Last administered on 06/17/16 09:15; Admin Dose 1 INH; Start 05/27/16 at 09:00 Acetaminophen (Tylenol Tab) 650 mg Q4H PRN PO pain/fever; Start 05/26/16 at 21 :30 Ondansetron HCl (Zofran Inj) 4 mg Q4H PRN IV nausea Last administered on at 17:32; Admin Dose 4 MG; Start 05/26/16 at 21:30 Guaifenesin/ Dextromethorphan (Mucinex Dm) 1 tab BID PO Last administered on 09:13; Admin Dose 1 TAB; Start 05/27/16 at 09:00 Fish Oil (Fish Oil) 1,000 mg DAILY PO Last administered on 06/17/16 09:14; Admin Dose 1,000 MG; Start 05/27/16 at 09:00 Atorvastatin Calcium (Lipitor) 80 mg DAILY@21 PO Last administered on 06/16/16 20:43; Admin Dose 80 MG; Start 05/27/16 at 00:00 Tramadol HCl (Ultram) 50 mg Q6H PRN PO PAIN Last administered on 06/14/16 02:09 ; Admin Dose 50 MG; Start 05/27/16 at 14:00 Miscellaneous Information 1 ea NOTE XX ; Start 05/27/16 at 18:30 Glucose (Glutose) 15 gm Q15M PRN PO DECREASED GLUCOSE; Start 05/27/16 at 18:30 Glucose (Glutose) 22.5 gm Q15M PRN PO DECREASED GLUCOSE; Start 05/27/16 at 18: 30 Dextrose (D50w Syringe) 25 ml Q15M PRN IV DECREASED GLUCOSE Last administered on 06/14/16 12:04; Admin Dose 25 ML; Start 05/27/16 at 18:30 Dextrose (D50w Syringe) 50 ml Q15M PRN IV DECREASED GLUCOSE; Start 05/27/16 at 18:30 Glucagon (Glucagen) 1 mg Q15M PRN IM DECREASED GLUCOSE; Start 05/27/16 at 18: 30 Glucose (Glutose) 15 gm Q15M PRN BUCCAL DECREASED GLUCOSE; Start 05/27/16 at 18:30 IV Flush (NS 10 ml) 10 ml PRN PRN IV IV PROTOCOL; Start 05/28/16 at 17:30 Prednisone (Prednisone) 40 mg DAILY PO Last administered on 06/17/16 09:14; Admin Dose 40 MG; Start 05/30/16 at 09:00 Morphine Sulfate (morphine) 1 mg Q4H PRN IV PAIN Last administered on 06/14/16 21:55; Admin Dose 1 MG; Start 06/01/16 at 09:30 Docusate Sodium (Colace) 100 mg BID PO Last administered on 06/14/16 08:56; Admin Dose 100 MG; Start 06/01/16 at 21:00 Senna (Senokot) 1 tab BID PRN PO CONSTIPATION Last administered on 06/09/16at 20:29; Admin Dose 1 TAB; Start 06/01/16 at 18:30 Digoxin (Digoxin) 0.125 mg DAILY@13 PO Last administered on 06/06/16at 13:34; Admin Dose 0.125 MG; Start 06/06/16 at 13:00; Status Future hold Amiodarone HCl (Cordarone) 200 mg DAILY PO Last administered on 06/17/16 09:14 ; Admin Dose 200 MG; Start 06/07/16 at 09:00 Acetylcysteine (Nac) 600 mg BID PO Last administered on 06/17/16 09:13; Admin Dose 600 MG; Start 06/08/16 at 11:00 Enoxaparin Sodium (Lovenox) 80 mg BID SC Last administered on 06/15/16 10:14; Admin Dose 80 MG; Start 06/09/16 at 21:00; Status Future Hold Furosemide (Lasix) 40 mg DAILY PO Last administered on 06/17/16 09:14; Admin Dose 40 MG; Start 06/10/16 at 09:00 Metoprolol Tartrate (Lopressor) 50 mg BID PO Last administered on 06/17/16 09: 15; Admin Dose 50 MG; Start 06/10/16 at 21:00 Mupirocin 1 applic 1 applic BID TOP Last administered on 06/17/16 09:15; Admin Dose 1 APPLIC; Start 06/14/16 at 15:00; Stop 06/24/16 at 14:59 Vancomycin HCl (Vancocin) 250 ml @ 125 mls/hr Q24H IVPB Last administered on 22:11; Admin Dose 125 MLS/HR; Start 06/15/16 at 23:00 Morphine Sulfate (morphine) 2 mg Q2H PRN IV FOR NON CARDIAC PAIN (4-10) Last administered on 06/17/16 06:01; Admin Dose 2 MG; Start 06/16/16 at 14:30 Morphine Sulfate 1 mg 1 mg Q1H PRN IV PAIN; Start 06/16/16 at 14:30 Cefazolin Sodium (Ancef 1 Gm/50 ml (Pmx)) 50 ml @ 100 mls/hr Q8 IVPB Last administered on 06/17/16 06:01; Admin Dose 100 MLS/HR; Start 06/16/16 at 22:00; Stop 06/17/16 at 14:29 Lisinopril 5 mg 5 mg BID PO ; Start 06/17/16 at 21:00 Magnesium Sulfate/ Dextrose (Magnesium Sulfate 1 Gm/D5W) 100 ml @ 100 mls/hr ONCE ONCE IVPB ; Start 06/17/16 at 14:00; Stop 06/17/16 at 14:59 RICHIE SWEET Jun 17, 2016 12:49
[2016-06-17] MEDS ORDERED: BUMETANIDE 1 MG INJ IV ONE (13:30)
[2016-06-17] MEDS ORDERED: MAGNESIUM SULFATE 1 GM/D5W 100 ML IVPB ONE (14:00)
--- NOTE | 2016-06-17 16:08 | CONS ---
Date/Time of Note Date/Time of Note DATE: 06/17/16 TIME: 16:07 Consult Date/Type/Reason Admit Date/Time May 26, 2016 at 19:17 Initial Consult Date 05/28/16 Type of Consultation: pulmonary Subjective Patient stable post pacemaker placement without significant shortness of breath Objective Vital Signs Date Time Temp Pulse Resp B/P Pulse Ox O2 Delivery O2 Flow Rate FiO2 06/17/16 15:26 98.1 60 18 111/53 97 06/17/16 14:45 Nasal Cannula 3.0 32 Intake and Output 06/16/16 06/16/16 06/17/16 15:00 23:00 07:00 Intake Total 250 ml 250 ml Output Total 400 ml 400 ml Balance -150 ml -150 ml GENERAL: Elderly gentleman comfortable at rest no acute distress VITAL SIGNS: per chart NECK: Supple. No JVD or lymphadenopathy. CARDIAC EXAM: S1, S2. No added sounds or murmurs. CHEST: Diminished air entry right lung ABDOMEN: Soft, nontender. No guarding or rebound. EXTREMITIES: No cyanosis, clubbing or edema. NEUROLOGIC: Generalized weakness. No focal Results/Medications Result Diagram: 06/17/16 0820 06/17/16 0830 Results 24 hrs Laboratory Tests Test 06/16/16 17:38 06/16/16 20:36 06/17/16 07:46 06/17/16 08:20 Bedside Glucose 131 164 89 Basophils # 0.0 Basophils % 0.4 Blood Morphology Comment Eosinophils # 0.0 Eosinophils % 0.4 Hematocrit 26.7 L Hemoglobin 8.8 L Lymphocytes # 1.3 Lymphocytes % 17.7 Mean Corpuscular Hemoglobin 31.2 Mean Corpuscular Hemoglobin Concent 33.1 Mean Corpuscular Volume 94.5 Mean Platelet Volume 8.6 Monocytes # 0.5 Monocytes % 6.7 Neutrophils # 5.5 Neutrophils % 74.8 Nucleated Red Blood Cells # 0.0 Nucleated Red Blood Cells % 0.0 Platelet Count 215 Red Blood Count 2.82 L Red Cell Distribution Width 16.0 H White Blood Count 7.4 Test 06/17/16 08:30 06/17/16 11:41 Alanine Aminotransferase (ALT/SGPT) 48 Albumin 3.0 L Albumin/Globulin Ratio 0.83 Alkaline Phosphatase 54 Anion Gap 15 Aspartate Amino Transf (AST/SGOT) 49 H Blood Urea Nitrogen 23 H Calcium Level 8.6 Carbon Dioxide Level 29 Chloride Level 105 Creatinine 0.88 Direct Bilirubin 0.00 Globulin 3.60 H Glucose Level 82 Indirect Bilirubin 0.4 Magnesium Level 1.9 Potassium Level 3.4 L Sodium Level 146 H Total Bilirubin 0.4 Total Protein 6.6 Bedside Glucose 132 Medications Current Medications Aspirin (Halfprin) 81 mg DAILY PO Last administered on 06/17/16 09:14; Admin Dose 81 MG; Start 05/27/16 at 09:00 Clopidogrel Bisulfate (plaVIX) 75 mg DAILY PO Last administered on 06/17/16 09: 14; Admin Dose 75 MG; Start 05/27/16 at 09:00 Ferrous Sulfate (Ferrous Sulfate (Ec)) 325 mg BID PO Last administered on 09:15; Admin Dose 325 MG; Start 05/27/16 at 09:00 Fluticasone Propionate (Flonase 0.05% Nasal) 1 spray BID NASAL Last administered on 06/17/16 09:15; Admin Dose 1 SPRAY; Start 05/27/16 at 09:00 Gabapentin (Neurontin) 300 mg TID PO Last administered on 06/17/16 12:39; Admin Dose 300 MG; Start 05/27/16 at 09:00 Guaifenesin/ Dextromethorphan (Robitussin Dm Liquid Cup) 10 ml Q4H PRN PO COUGH Last administered on 06/16/16 21:31; Admin Dose 10 ML; Start 05/26/16 at 21:30 Montelukast Sodium (Singulair) 10 mg HS PO Last administered on 06/16/16 20:44 ; Admin Dose 10 MG; Start 05/27/16 at 21:00 Oxycodone/ Acetaminophen (Endocet (10/ 325)) 1 tab Q6 PRN PO PAIN Last administered on 06/17/16 09:21; Admin Dose 1 TAB; Start 05/26/16 at 21:30 Salmeterol Xinafoate/ Fluticasone (Advair 500/50 Diskus) 1 inh BID INH Last administered on 06/17/16 09:15; Admin Dose 1 INH; Start 05/27/16 at 09:00 Acetaminophen (Tylenol Tab) 650 mg Q4H PRN PO pain/fever; Start 05/26/16 at 21 :30 Ondansetron HCl (Zofran Inj) 4 mg Q4H PRN IV nausea Last administered on at 17:32; Admin Dose 4 MG; Start 05/26/16 at 21:30 Guaifenesin/ Dextromethorphan (Mucinex Dm) 1 tab BID PO Last administered on 09:13; Admin Dose 1 TAB; Start 05/27/16 at 09:00 Fish Oil (Fish Oil) 1,000 mg DAILY PO Last administered on 06/17/16 09:14; Admin Dose 1,000 MG; Start 05/27/16 at 09:00 Atorvastatin Calcium (Lipitor) 80 mg DAILY@21 PO Last administered on 06/16/16 20:43; Admin Dose 80 MG; Start 05/27/16 at 00:00 Tramadol HCl (Ultram) 50 mg Q6H PRN PO PAIN Last administered on 06/14/16 02:09 ; Admin Dose 50 MG; Start 05/27/16 at 14:00 Miscellaneous Information 1 ea NOTE XX ; Start 05/27/16 at 18:30 Glucose (Glutose) 15 gm Q15M PRN PO DECREASED GLUCOSE; Start 05/27/16 at 18:30 Glucose (Glutose) 22.5 gm Q15M PRN PO DECREASED GLUCOSE; Start 05/27/16 at 18: 30 Dextrose (D50w Syringe) 25 ml Q15M PRN IV DECREASED GLUCOSE Last administered on 06/14/16 12:04; Admin Dose 25 ML; Start 05/27/16 at 18:30 Dextrose (D50w Syringe) 50 ml Q15M PRN IV DECREASED GLUCOSE; Start 05/27/16 at 18:30 Glucagon (Glucagen) 1 mg Q15M PRN IM DECREASED GLUCOSE; Start 05/27/16 at 18: 30 Glucose (Glutose) 15 gm Q15M PRN BUCCAL DECREASED GLUCOSE; Start 05/27/16 at 18:30 IV Flush (NS 10 ml) 10 ml PRN PRN IV IV PROTOCOL; Start 05/28/16 at 17:30 Prednisone (Prednisone) 40 mg DAILY PO Last administered on 06/17/16 09:14; Admin Dose 40 MG; Start 05/30/16 at 09:00 Morphine Sulfate (morphine) 1 mg Q4H PRN IV PAIN Last administered on 06/14/16 21:55; Admin Dose 1 MG; Start 06/01/16 at 09:30 Docusate Sodium (Colace) 100 mg BID PO Last administered on 06/14/16 08:56; Admin Dose 100 MG; Start 06/01/16 at 21:00 Senna (Senokot) 1 tab BID PRN PO CONSTIPATION Last administered on 06/09/16at 20:29; Admin Dose 1 TAB; Start 06/01/16 at 18:30 Digoxin (Digoxin) 0.125 mg DAILY@13 PO Last administered on 06/06/16at 13:34; Admin Dose 0.125 MG; Start 06/06/16 at 13:00; Status Future hold Amiodarone HCl (Cordarone) 200 mg DAILY PO Last administered on 06/17/16 09:14 ; Admin Dose 200 MG; Start 06/07/16 at 09:00 Acetylcysteine (Nac) 600 mg BID PO Last administered on 06/17/16 09:13; Admin Dose 600 MG; Start 06/08/16 at 11:00 Enoxaparin Sodium (Lovenox) 80 mg BID SC Last administered on 06/15/16 10:14; Admin Dose 80 MG; Start 06/09/16 at 21:00; Status Future Hold Metoprolol Tartrate (Lopressor) 50 mg BID PO Last administered on 06/17/16 09: 15; Admin Dose 50 MG; Start 06/10/16 at 21:00 Mupirocin 1 applic 1 applic BID TOP Last administered on 06/17/16 09:15; Admin Dose 1 APPLIC; Start 06/14/16 at 15:00; Stop 06/24/16 at 14:59 Vancomycin HCl (Vancocin) 250 ml @ 125 mls/hr Q24H IVPB Last administered on 22:11; Admin Dose 125 MLS/HR; Start 06/15/16 at 23:00 Morphine Sulfate (morphine) 2 mg Q2H PRN IV FOR NON CARDIAC PAIN (4-10) Last administered on 06/17/16 06:01; Admin Dose 2 MG; Start 06/16/16 at 14:30 Morphine Sulfate (morphine) 1 mg Q1H PRN IV PAIN; Start 06/16/16 at 14:30 Lisinopril (Zestril) 5 mg BID PO ; Start 06/17/16 at 21:00 Bumetanide (Bumex) 1 mg DAILY PO ; Start 06/18/16 at 09:00 Potassium Chloride (Klor-Con 20) 40 meq ONCE ONCE PO ; Start 06/17/16 at 20:00; Stop 06/17/16 at 20:01 Assessment/Plan Chief Complaint/Hosp Course IMPRESSION AND PLAN 1. Chronic obstructive pulmonary disease with chronic hypoxemia. Currently stable 2. Status post acute on chronic hypoxemic with respiratory failure. 3. Congestive cardiac failure. 4. Sinus bradycardia, s/p AICD The patient will require 1. Continue cardiac recs 2. ID recs 3. PT eval. 4. Agree with slow steroid taper Discharge planning okay from pulmonary standpoint Problems: SIOMARA GARZA MD, [facility] Jun 17, 2016 16:08
[2016-06-17] MEDS ORDERED: POTASSIUM CHLORIDE (SR) 20 MEQ TAB PO ONE (20:00)
[2016-06-17] MEDS: ATORVASTATIN 80 MG TAB PO SCH (22:23)
[2016-06-17] MEDS: MONTELUKAST 10 MG TAB PO SCH (22:28)
[2016-06-17] MEDS: VANCOMYCIN 1 GM in NS 250 ML IVPB SCH (22:39)
[2016-06-18] VITALS (12 sets, daily range): BP systolic 107–144; BP diastolic 43–66; PULSE 53–60; RESP 18–20
[2016-06-18] MEDS: morphine 2 MG INJ IV PRN ×2 (01:55→09:37)
[2016-06-18] MEDS: ALBUTEROL 0.083% (NEB) 2.5 MG/3 ML AMP HHN PRN (02:15)
[2016-06-18] MEDS: ALBUTEROL/IPRATROPIUM (NEB) 3 ML AMP HHN SCH ×4 (02:19→20:02)
[2016-06-18 07:30] LABS: BASOPHILS % 0.4 % (0.0-2.0); EOSINOPHILS % 0.3 % (0.0-7.0); HEMATOCRIT 22.5 % (42.0-52.0); HEMOGLOBIN 7.5 g/dl (14.0-18.0); LYMPHOCYTES # 1.2 10^3/ul (0.8-2.9); LYMPHOCYTES % 16.9 % (15.0-51.0); MEAN CORPUSCULAR HEMOGLOBIN 31.7 pg (29.0-33.0); MEAN CORPUSCULAR HGB CONC 33.4 g/dl (32.0-37.0); MEAN CORPUSCULAR VOLUME 94.9 fl (82.0-101.0); MEAN PLATELET VOLUME 8.9 fl (7.4-10.4); MONOCYTE # 0.5 10^3/ul (0.3-0.9); MONOCYTES % 6.2 % (0.0-11.0); NEUTROPHIL # 5.5 10^3/ul (1.6-7.5); NEUTROPHILS % 76.2 % (39.0-77.0); PLATELET COUNT 187 10^3/UL (140-440); RED BLOOD COUNT 2.37 10^6/ul (4.70-6.10); UNCORRECTED WBC 7.3 10^3/ul (4.8-10.8); WHITE BLOOD COUNT 7.3 10^3/ul (4.8-10.8)
[2016-06-18 07:37] LABS: CONDITION 1; LH ANALYZER COMMENTS 1
[2016-06-18] MEDS: INSULIN ASPART [NOVOLOG] 3 ML PEN SC SCH ×4 (07:55→22:52)
[2016-06-18 08:02] LABS: POTASSIUM 4.4 mmol/L (3.5-5.1)
[2016-06-18 08:04] LABS: CREATININE 1.16 mg/dl (0.61-1.24)
[2016-06-18 08:05] LABS: CALCIUM 7.9 mg/dl (8.4-10.2)
[2016-06-18 08:16] LABS: MAGNESIUM 2.1 mg/dl (1.7-2.5); PHOSPHORUS 3.1 mg/dl (2.5-4.9)
--- NOTE | 2016-06-18 08:46 | RADRPT ---
PROCEDURE: XR Chest. CLINICAL INDICATION: Pulmonary edema TECHNIQUE: Chest AP portable. COMPARISON: 06/16/2016 FINDINGS: Left-sided multi lead biventricular pacemaker / AICD. The mediastinal structures are unremarkable. There is calcification of the thoracic aorta (consiste nt with atherosclerosis). There is mild cardiomegaly. There is pulmonary venous hypertension. The re are RLL and LLL subsegmental atelectasis/patchy consolidations. There are trace bilateral pleura l effusions. There are senescent changes of the axial skeleton. IMPRESSION: Mild cardiomegaly. Pulmonary venous hypertension. RLL and LLL subsegmental atelectasis/patchy consolidations. Trace bilateral pleural effusions. RPTAT: [id number] .Abdi Wallis MD, MD Date Time Electronically viewed and signed by .Abdi Wallis MD, on 06/18/2016 08:46 .B/
[2016-06-18] MEDS: SALMETEROL/FLUTICASONE 500/50 INHA INH SCH ×2 (09:52→22:48)
[2016-06-18] MEDS: GUAIFENESIN/DM (SR) TAB PO SCH ×2 (09:52→22:37)
[2016-06-18] MEDS: BUMETANIDE 1 MG TAB PO SCH (09:52)
[2016-06-18] MEDS: FLUTICASONE 0.05% 16 GM NAS SPRAY NASAL SCH ×2 (09:52→22:48)
[2016-06-18] MEDS: ACETYLCYSTEINE 600 MG CAP PO SCH ×2 (09:53→22:37)
[2016-06-18] MEDS: predniSONE 20 MG TAB PO SCH (09:53)
[2016-06-18] MEDS: LISINOPRIL 5 MG TAB PO SCH ×2 (09:53→22:47)
[2016-06-18] MEDS: CLOPIDOGREL 75 MG TAB PO SCH (09:54)
[2016-06-18] MEDS: FERROUS SULFATE (EC) 325 MG TAB PO SCH ×2 (09:54→22:38)
[2016-06-18] MEDS: ASPIRIN (EC) 81 MG TAB PO SCH (09:54)
[2016-06-18] MEDS: FISH OIL 1,000 MG CAP PO SCH (09:54)
[2016-06-18] MEDS: GABAPENTIN 300 MG CAP PO SCH ×3 (09:54→22:35)
[2016-06-18] MEDS: DOCUSATE SODIUM 100 MG CAP PO SCH ×2 (09:54→22:34)
[2016-06-18] MEDS: AMIODARONE 200 MG TAB PO SCH (09:55)
[2016-06-18] MEDS: MUPIROCIN 2% 22 GM OINT TOP SCH ×2 (09:56→21:00)
[2016-06-18] MEDS: METOPROLOL 50 MG TAB PO SCH ×2 (09:56→22:46)
[2016-06-18 10:15] LABS: HEMATOCRIT 24.8 % (42.0-52.0); HEMOGLOBIN 8.3 g/dl (14.0-18.0)
--- NOTE | 2016-06-18 12:36 | CONS ---
Date/Time of Note Date/Time of Note DATE: 06/18/16 TIME: 12:35 Consult Date/Type/Reason Admit Date/Time May 26, 2016 at 19:17 Initial Consult Date 05/28/16 Type of Consultation: ID Subjective no acute changes, no fevers, awake, nad Objective Vital Signs Date Time Temp Pulse Resp B/P Pulse Ox O2 Delivery O2 Flow Rate FiO2 06/18/16 12:27 53 06/18/16 11:29 98.5 20 108/53 93 06/18/16 08:14 2.0 06/18/16 08:13 Nasal Cannula 06/17/16 16:39 32 Intake and Output 06/17/16 06/17/16 06/18/16 15:00 23:00 07:00 Intake Total 50 ml 800 ml 600 ml Output Total 750 ml 300 ml Balance 50 ml 50 ml 300 ml Results/Medications Result Diagram: 06/18/16 0940 06/18/16 0652 Results 24 hrs Laboratory Tests Test 06/17/16 17:13 06/17/16 22:35 06/18/16 02:04 06/18/16 06:52 Bedside Glucose 210 220 155 Anion Gap 9 # Basophils # 0.0 Basophils % 0.4 Blood Morphology Comment Blood Urea Nitrogen 28 H Calcium Level 7.9 L Carbon Dioxide Level 31 Chloride Level 102 Creatinine 1.16 Eosinophils # 0.0 Eosinophils % 0.3 Glucose Level 79 Hematocrit 22.5 L Hemoglobin 7.5 L Lymphocytes # 1.2 Lymphocytes % 16.9 Magnesium Level 2.1 Mean Corpuscular Hemoglobin 31.7 Mean Corpuscular Hemoglobin Concent 33.4 Mean Corpuscular Volume 94.9 Mean Platelet Volume 8.9 Monocytes # 0.5 Monocytes % 6.2 Neutrophils # 5.5 Neutrophils % 76.2 Nucleated Red Blood Cells # 0.0 Nucleated Red Blood Cells % 0.0 Phosphorus Level 3.1 Platelet Count 187 Potassium Level 4.4 Red Blood Count 2.37 L Red Cell Distribution Width 16.0 H Sodium Level 138 White Blood Count 7.3 Test 06/18/16 07:56 06/18/16 09:40 06/18/16 12:20 Bedside Glucose 83 153 Hematocrit 24.8 L Hemoglobin 8.3 L Medications Current Medications Aspirin (Halfprin) 81 mg DAILY PO Last administered on 06/18/16t 09:54; Admin Dose 81 MG; Start 05/27/16 at 09:00 Clopidogrel Bisulfate (plaVIX) 75 mg DAILY PO Last administered on 06/18/16 09: 54; Admin Dose 75 MG; Start 05/27/16 at 09:00 Ferrous Sulfate (Ferrous Sulfate (Ec)) 325 mg BID PO Last administered on 09:54; Admin Dose 325 MG; Start 05/27/16 at 09:00 Fluticasone Propionate (Flonase 0.05% Nasal) 1 spray BID NASAL Last administered on 06/18/16 09:52; Admin Dose 1 SPRAY; Start 05/27/16 at 09:00 Gabapentin (Neurontin) 300 mg TID PO Last administered on 06/18/16 09:54; Admin Dose 300 MG; Start 05/27/16 at 09:00 Guaifenesin/ Dextromethorphan (Robitussin Dm Liquid Cup) 10 ml Q4H PRN PO COUGH Last administered on 06/16/16 21:31; Admin Dose 10 ML; Start 05/26/16 at 21:30 Montelukast Sodium (Singulair) 10 mg HS PO Last administered on 06/17/16 22:28 ; Admin Dose 10 MG; Start 05/27/16 at 21:00 Oxycodone/ Acetaminophen (Endocet (10/ 325)) 1 tab Q6 PRN PO PAIN Last administered on 06/17/16 09:21; Admin Dose 1 TAB; Start 05/26/16 at 21:30 Salmeterol Xinafoate/ Fluticasone (Advair 500/50 Diskus) 1 inh BID INH Last administered on 06/18/16 09:52; Admin Dose 1 INH; Start 05/27/16 at 09:00 Acetaminophen (Tylenol Tab) 650 mg Q4H PRN PO pain/fever; Start 05/26/16 at 21 :30 Ondansetron HCl (Zofran Inj) 4 mg Q4H PRN IV nausea Last administered on at 17:32; Admin Dose 4 MG; Start 05/26/16 at 21:30 Guaifenesin/ Dextromethorphan (Mucinex Dm) 1 tab BID PO Last administered on 09:52; Admin Dose 1 TAB; Start 12/14/16 at 09:00 Fish Oil (Fish Oil) 1,000 mg DAILY PO Last administered on 06/18/16 09:54; Admin Dose 1,000 MG; Start 05/27/16 at 09:00 Atorvastatin Calcium (Lipitor) 80 mg DAILY@21 PO Last administered on 06/17/16 22:23; Admin Dose 80 MG; Start 05/27/16 at 00:00 Tramadol HCl (Ultram) 50 mg Q6H PRN PO PAIN Last administered on 06/14/16 02:09 ; Admin Dose 50 MG; Start 05/27/16 at 14:00 Miscellaneous Information 1 ea NOTE XX ; Start 05/27/16 at 18:30 Glucose (Glutose) 15 gm Q15M PRN PO DECREASED GLUCOSE; Start 05/27/16 at 18:30 Glucose (Glutose) 22.5 gm Q15M PRN PO DECREASED GLUCOSE; Start 05/27/16 at 18: 30 Dextrose (D50w Syringe) 25 ml Q15M PRN IV DECREASED GLUCOSE Last administered on 06/14/16 12:04; Admin Dose 25 ML; Start 05/27/16 at 18:30 Dextrose (D50w Syringe) 50 ml Q15M PRN IV DECREASED GLUCOSE; Start 05/27/16 at 18:30 Glucagon (Glucagen) 1 mg Q15M PRN IM DECREASED GLUCOSE; Start 05/27/16 at 18: 30 Glucose (Glutose) 15 gm Q15M PRN BUCCAL DECREASED GLUCOSE; Start 05/27/16 at 18:30 IV Flush (NS 10 ml) 10 ml PRN PRN IV IV PROTOCOL; Start 05/28/16 at 17:30 Prednisone (Prednisone) 40 mg DAILY PO Last administered on 06/18/16 09:53; Admin Dose 40 MG; Start 05/30/16 at 09:00 Morphine Sulfate (morphine) 1 mg Q4H PRN IV PAIN Last administered on 06/18/16 09:37; Admin Dose 1 MG; Start 06/01/16 at 09:30 Docusate Sodium (Colace) 100 mg BID PO Last administered on 06/18/16 09:54; Admin Dose 100 MG; Start 06/01/16 at 21:00 Senna (Senokot) 1 tab BID PRN PO CONSTIPATION Last administered on 06/09/16at 20:29; Admin Dose 1 TAB; Start 06/01/16 at 18:30 Digoxin (Digoxin) 0.125 mg DAILY@13 PO Last administered on 06/06/16at 13:34; Admin Dose 0.125 MG; Start 06/06/16 at 13:00; Status Future hold Amiodarone HCl (Cordarone) 200 mg DAILY PO Last administered on 06/18/16 09:55 ; Admin Dose 200 MG; Start 06/07/16 at 09:00 Acetylcysteine (Nac) 600 mg BID PO Last administered on 06/18/16 09:53; Admin Dose 600 MG; Start 06/08/16 at 11:00 Enoxaparin Sodium (Lovenox) 80 mg BID SC Last administered on 06/15/16 10:14; Admin Dose 80 MG; Start 06/09/16 at 21:00; Status Future Hold Metoprolol Tartrate (Lopressor) 50 mg BID PO Last administered on 06/18/16 09: 56; Admin Dose 50 MG; Start 06/10/16 at 21:00 Mupirocin 1 applic 1 applic BID TOP Last administered on 06/18/16 09:56; Admin Dose 1 APPLIC; Start 06/14/16 at 15:00; Stop 06/24/16 at 14:59 Vancomycin HCl (Vancocin) 250 ml @ 125 mls/hr Q24H IVPB Last administered on 22:39; Admin Dose 125 MLS/HR; Start 06/15/16 at 23:00 Morphine Sulfate (morphine) 2 mg Q2H PRN IV FOR NON CARDIAC PAIN (4-10) Last administered on 06/18/16 01:55; Admin Dose 2 MG; Start 06/16/16 at 14:30 Morphine Sulfate (morphine) 1 mg Q1H PRN IV PAIN; Start 06/16/16 at 14:30 Lisinopril (Zestril) 5 mg BID PO Last administered on 06/18/16 09:53; Admin Dose 5 MG; Start 06/17/16 at 21:00 Bumetanide (Bumex) 1 mg DAILY PO Last administered on 06/18/16 09:52; Admin Dose 1 MG; Start 06/18/16 at 09:00 Miscellaneous Information (*Rx Drug Level Order Reminder*) VANCO TR LEVEL PRIOR... ONCE ONCE XX ; Start 06/18/16 at 22:00; Stop 06/18/16 at 22:01 Assessment/Plan Chief Complaint/Hosp Course MICROBIOLOGY: Repeat blood cultures remain negative. INDWELLINGS: Permanent pacemaker and right upper extremity PICC line. ANTIMICROBIALS: 1. Vancomycin. PHYSICAL EXAMINATION: GENERAL: Fragile, elderly man who is alert, in no distress. HEENT: Head atraumatic, normocephalic. Sclerae anicteric. Buccal mucosa pink. NECK: Supple, trachea midline. CHEST: Rise symmetrical. Breath sounds clear with scattered crackles to bases. HEART: S1, S2. ABDOMEN: Soft, bowel tones present. EXTREMITIES: No cyanosis. ASSESSMENT: 1. Status post coagulase-negative Staphylococcus bacteremia and enterococcal urinary tract infection. 2. Chronic obstructive pulmonary disease. 3. Sick sinus syndrome, status post permanent pacemaker placement. 4. Aortic stenosis, status post aortic valve replacement in January 2015. PLAN: The patient remains stable, completing antibiotics==> last dose on . Continue present care. Follow cardiology recommendations. [facility] staff Problems: ROSA ISELA DAVIDSON NP Jun 18, 2016 12:36
[2016-06-18] MEDS: DIGOXIN 0.125 MG TAB PO SCH (13:10)
[2016-06-18] MEDS ORDERED: SOD CHLORIDE 0.9% 250 ML IV* ONE (13:15)
[2016-06-18] MEDS ORDERED: BUMETANIDE 1 MG INJ IV ONE ×2 (13:30→22:30)
--- NOTE | 2016-06-18 13:50 | PN ---
Date/Time of Note Date/Time of Note DATE: 06/18/16 TIME: 13:24 Assessment/Plan VTE Prophylaxis VTE Prophylaxis Intervention: SCD's Lines/Catheters IV Catheter Type (from Nrsg): PICC Line (for IV access ) Central line still needed: Yes (IV access ) Urinary Cath still in place: No Assessment/Plan Assessment/Plan 80 yo male with: 1. Leukocytosis: resolved with WBC improved back to normal, 1/2 coag neg staph but repeat blood cx NGTD and Enterococcus UTI also, both covered with Vanco S/p BiV/ICD 2. NSTEMI, patient s/p TAVR and with cardiomyopathy, s/p PTCA with 1 stent to circ., EF 30% and now s/p BiV/ICD placement On 2L NC, stable respiratory status post procedure Continue ASA and Plavix, BBlock 3. Atrial fibrillation/Atrial Flutter, in SR and atrial arrhythmias, sick sinus syndrome, s/p failed cardioversion for Afib. POD#2 s/p BiV/ICD Appreciate Dr Luis's recommendations. Holding Eliquis and anticoagulant for now, per Dr Wagoner ok to resume antiplatelets but holding anticoagulant. Continue Amiodarone, Lopressor and titrate to HR control. 4. COPD, O2 dependent: on 2L NC currently and BiPAP prn Continue Prednisone to 40 daily for now and will taper further slowly back to outpatient dosing. Nebs rx , Advair and Spiriva Discussed with Pulmonology. 5. JOE on CKD: resolved with renal function back down to baseline now Appreciate Dr Cordero's recommendations. Continue diuresis and monitor electrolytes, renal function and volume status. Replete K today 6. S/p accidental fall weekend prior to admission with RLE Hematoma and RUE ecchymosis and right rib fractures Pain control with Percocet prn and Tramadol prn CT right LE noted. Continue to monitor and wound care prn 7. Acute on chronic Anemia with hematomas and blood loss: s/p 2 units pRBC around time of admission, Hb 7.5 to 8.3 today, transfuse 2 units pRBC today. Monitor h/h in AM 8. Chronic back pain with acute component now with rib fractures: Percocet and tramadol prn 9. Hypertension: continue current meds 10. Congestive heart failure, systolic dysfunction EF 30 % on echo. S/p episode of volume overload and respiratory distress requiring BIPAP, Resolved peripheral edema and on 2L NC. CXR today unchanged with ? some element of pulmonary edema, now on Bumex. 11. Temporal arteritis. The patient is already on prednisone. 12. Previous history of transient ischemic attack. Patient's mental status is stable and at baseline. Monitor Prophylaxis: SCDs as tolerated, PPI for GI ppx while on steroids especially Disposition: On Tele, s/p BiV/ICD, diuresis, pRBC today. Repeat blood cx negative. Plans for SNF in AM if stable Subjective 24 Hr Interval Summary Free Text/Dictation Patient doing Ok but Hb down to 7.5 and repeat 8.3 Transfusing 2 units pRBC and follow up h/h in AM D/c plan for SNF in AM Exam/Review of Systems Vital Signs Vitals Vital Signs Date Time Temp Pulse Resp B/P Pulse Ox O2 Delivery O2 Flow Rate FiO2 06/18/16 12:27 53 06/18/16 11:29 98.5 20 108/53 93 06/18/16 08:14 2.0 06/18/16 08:13 Nasal Cannula 06/17/16 16:39 32 Intake and Output 06/17/16 06/17/16 06/18/16 15:00 23:00 07:00 Intake Total 50 ml 800 ml 600 ml Output Total 750 ml 300 ml Balance 50 ml 50 ml 300 ml Exam Constitutional: alert, frail, oriented Respiratory: diminished breath sounds (bilateral base ), normal air movement Cardiovascular: irregular rhythm, other Gastrointestinal: non-tender, soft Musculoskeletal: other (diffuse echymosis ) Extremities: normal pulses, other (no edema, clubbing or cyanosis ) 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: SYSTEMS DEVELOPMENT MANAGER II-XII intact, nl mental status, nl speech, other ( generalised weakness ) Results Result Diagram: 06/18/16 0940 06/18/16 0652 Results 24 hrs Laboratory Tests Test 06/17/16 17:13 06/17/16 22:35 06/18/16 02:04 06/18/16 06:52 Bedside Glucose 210 220 155 Anion Gap 9 # Basophils # 0.0 Basophils % 0.4 Blood Morphology Comment Blood Urea Nitrogen 28 H Calcium Level 7.9 L Carbon Dioxide Level 31 Chloride Level 102 Creatinine 1.16 Eosinophils # 0.0 Eosinophils % 0.3 Glucose Level 79 Hematocrit 22.5 L Hemoglobin 7.5 L Lymphocytes # 1.2 Lymphocytes % 16.9 Magnesium Level 2.1 Mean Corpuscular Hemoglobin 31.7 Mean Corpuscular Hemoglobin Concent 33.4 Mean Corpuscular Volume 94.9 Mean Platelet Volume 8.9 Monocytes # 0.5 Monocytes % 6.2 Neutrophils # 5.5 Neutrophils % 76.2 Nucleated Red Blood Cells # 0.0 Nucleated Red Blood Cells % 0.0 Phosphorus Level 3.1 Platelet Count 187 Potassium Level 4.4 Red Blood Count 2.37 L Red Cell Distribution Width 16.0 H Sodium Level 138 White Blood Count 7.3 Test 06/18/16 07:56 06/18/16 09:40 06/18/16 12:20 Bedside Glucose 83 153 Hematocrit 24.8 L Hemoglobin 8.3 L Medications Medications Current Medications Aspirin (Halfprin) 81 mg DAILY PO Last administered on 06/18/16 09:54; Admin Dose 81 MG; Start 05/27/16 at 09:00 Clopidogrel Bisulfate (plaVIX) 75 mg DAILY PO Last administered on 06/18/16 09: 54; Admin Dose 75 MG; Start 05/27/16 at 09:00 Ferrous Sulfate (Ferrous Sulfate (Ec)) 325 mg BID PO Last administered on 09:54; Admin Dose 325 MG; Start 05/27/16 at 09:00 Fluticasone Propionate (Flonase 0.05% Nasal) 1 spray BID NASAL Last administered on 06/18/16 09:52; Admin Dose 1 SPRAY; Start 05/27/16 at 09:00 Gabapentin (Neurontin) 300 mg TID PO Last administered on 06/18/16 13:10; Admin Dose 300 MG; Start 05/27/16 at 09:00 Guaifenesin/ Dextromethorphan (Robitussin Dm Liquid Cup) 10 ml Q4H PRN PO COUGH Last administered on 06/16/16 21:31; Admin Dose 10 ML; Start 05/26/16 at 21:30 Montelukast Sodium (Singulair) 10 mg HS PO Last administered on 06/17/16 22:28 ; Admin Dose 10 MG; Start 05/27/16 at 21:00 Oxycodone/ Acetaminophen (Endocet (10/ 325)) 1 tab Q6 PRN PO PAIN Last administered on 06/17/16 09:21; Admin Dose 1 TAB; Start 05/26/16 at 21:30 Salmeterol Xinafoate/ Fluticasone (Advair 500/50 Diskus) 1 inh BID INH Last administered on 06/18/16 09:52; Admin Dose 1 INH; Start 05/27/16 at 09:00 Acetaminophen (Tylenol Tab) 650 mg Q4H PRN PO pain/fever; Start 05/26/16 at 21 :30 Ondansetron HCl (Zofran Inj) 4 mg Q4H PRN IV nausea Last administered on at 17:32; Admin Dose 4 MG; Start 05/26/16 at 21:30 Guaifenesin/ Dextromethorphan (Mucinex Dm) 1 tab BID PO Last administered on 09:52; Admin Dose 1 TAB; Start 05/27/16 at 09:00 Fish Oil (Fish Oil) 1,000 mg DAILY PO Last administered on 06/18/16 09:54; Admin Dose 1,000 MG; Start 05/27/16 at 09:00 Atorvastatin Calcium (Lipitor) 80 mg DAILY@21 PO Last administered on 06/17/16 22:23; Admin Dose 80 MG; Start 05/27/16 at 00:00 Tramadol HCl (Ultram) 50 mg Q6H PRN PO PAIN Last administered on 06/14/16 02:09 ; Admin Dose 50 MG; Start 05/27/16 at 14:00 Miscellaneous Information 1 ea NOTE XX ; Start 05/27/16 at 18:30 Glucose (Glutose) 15 gm Q15M PRN PO DECREASED GLUCOSE; Start 05/27/16 at 18:30 Glucose (Glutose) 22.5 gm Q15M PRN PO DECREASED GLUCOSE; Start 05/27/16 at 18: 30 Dextrose (D50w Syringe) 25 ml Q15M PRN IV DECREASED GLUCOSE Last administered on 06/14/16 12:04; Admin Dose 25 ML; Start 05/27/16 at 18:30 Dextrose (D50w Syringe) 50 ml Q15M PRN IV DECREASED GLUCOSE; Start 05/27/16 at 18:30 Glucagon (Glucagen) 1 mg Q15M PRN IM DECREASED GLUCOSE; Start 05/27/16 at 18: 30 Glucose (Glutose) 15 gm Q15M PRN BUCCAL DECREASED GLUCOSE; Start 05/27/16 at 18:30 IV Flush (NS 10 ml) 10 ml PRN PRN IV IV PROTOCOL; Start 05/28/16 at 17:30 Prednisone (Prednisone) 40 mg DAILY PO Last administered on 06/18/16 09:53; Admin Dose 40 MG; Start 05/30/16 at 09:00 Morphine Sulfate (morphine) 1 mg Q4H PRN IV PAIN Last administered on 06/18/16 09:37; Admin Dose 1 MG; Start 06/01/16 at 09:30 Docusate Sodium (Colace) 100 mg BID PO Last administered on 06/18/16 09:54; Admin Dose 100 MG; Start 06/01/16 at 21:00 Senna (Senokot) 1 tab BID PRN PO CONSTIPATION Last administered on 06/09/16at 20:29; Admin Dose 1 TAB; Start 06/01/16 at 18:30 Digoxin (Digoxin) 0.125 mg DAILY@13 PO Last administered on 06/18/16 13:10; Admin Dose 0.125 MG; Start 06/06/16 at 13:00; Status Future hold Amiodarone HCl (Cordarone) 200 mg DAILY PO Last administered on 06/18/16 09:55 ; Admin Dose 200 MG; Start 06/07/16 at 09:00 Acetylcysteine (Nac) 600 mg BID PO Last administered on 06/18/16 09:53; Admin Dose 600 MG; Start 06/08/16 at 11:00 Enoxaparin Sodium (Lovenox) 80 mg BID SC Last administered on 06/15/16 10:14; Admin Dose 80 MG; Start 06/09/16 at 21:00; Status Future Hold Metoprolol Tartrate (Lopressor) 50 mg BID PO Last administered on 06/18/16 09: 56; Admin Dose 50 MG; Start 06/10/16 at 21:00 Mupirocin 1 applic 1 applic BID TOP Last administered on 06/18/16 09:56; Admin Dose 1 APPLIC; Start 06/14/16 at 15:00; Stop 06/24/16 at 14:59 Vancomycin HCl (Vancocin) 250 ml @ 125 mls/hr Q24H IVPB Last administered on 22:39; Admin Dose 125 MLS/HR; Start 06/15/16 at 23:00 Morphine Sulfate (morphine) 2 mg Q2H PRN IV FOR NON CARDIAC PAIN (4-10) Last administered on 06/18/16 01:55; Admin Dose 2 MG; Start 06/16/16 at 14:30 Morphine Sulfate (morphine) 1 mg Q1H PRN IV PAIN; Start 06/16/16 at 14:30 Lisinopril (Zestril) 5 mg BID PO Last administered on 06/18/16 09:53; Admin Dose 5 MG; Start 06/17/16 at 21:00 Bumetanide (Bumex) 1 mg DAILY PO Last administered on 06/18/16 09:52; Admin Dose 1 MG; Start 06/18/16 at 09:00 Miscellaneous Information (*Rx Drug Level Order Reminder*) VANCO TR LEVEL PRIOR... ONCE ONCE XX ; Start 06/18/16 at 22:00; Stop 06/18/16 at 22:01 RICHIE SWEET Jun 18, 2016 13:35
--- NOTE | 2016-06-18 14:19 | CONS ---
Date/Time of Note Date/Time of Note DATE: 06/18/16 TIME: 14:15 Assessment/Plan Assessment/Plan Additional Assessment/Plan Non-ST elevation [place] status post drug-eluting stenting to circumflex 06/01/2016 Respiratory Failure Acute Decompensated Systolic CHF, improving Paroxysmal atrial fibrillation/flutter Transient heart block status post pacemaker 06/16/2016 Acute kidney injury, resolved Cardiomyopathy ejection fraction 35% Aortic stenosis, status post transcatheter aortic valve replacement in January 2015. Chronic obstructive pulmonary disease on home oxygen. -Patient plan for blood transfusion today, would give IV Bumex in between the 2 units transfusion. Heart rate has been stable, would DC digoxin. Continue aspirin and Plavix therapy, anticoagulation on hold secondary to hematoma at pacemaker site. Consultation Date/Type/Reason Admit Date/Time May 26, 2016 at 19:17 Type of Consultation: cv 24 HR Interval Summary Free Text/Dictation Denies chest pain, shortness of breath is better, denies palpitations or dizziness Exam/Review of Systems Vital Signs Vitals Vital Signs Date Time Temp Pulse Resp B/P Pulse Ox O2 Delivery O2 Flow Rate FiO2 06/18/16 13:53 96 2.0 06/18/16 13:52 48 20 Nasal Cannula 06/18/16 11:29 98.5 108/53 06/17/16 16:39 32 Intake and Output 06/17/16 06/17/16 06/18/16 15:00 23:00 07:00 Intake Total 50 ml 800 ml 600 ml Output Total 750 ml 300 ml Balance 50 ml 50 ml 300 ml Exam No apparent distress Constitutional: alert, frail, oriented Head: normocephalic Neck: supple Respiratory: other (course breath sounds bilaterally with mild scattered rhonchi, no wheezing) Cardiovascular: other (S1-S2 heard), regular rate and rhythm Gastrointestinal: bowel sounds, non-tender, soft Extremities: edema (trace) Results Result Diagram: 06/18/16 0940 06/18/16 0652 Results 24 hrs Laboratory Tests Test 06/17/16 17:13 06/17/16 22:35 06/18/16 02:04 06/18/16 06:52 Bedside Glucose 210 220 155 Anion Gap 9 # Basophils # 0.0 Basophils % 0.4 Blood Morphology Comment Blood Urea Nitrogen 28 H Calcium Level 7.9 L Carbon Dioxide Level 31 Chloride Level 102 Creatinine 1.16 Eosinophils # 0.0 Eosinophils % 0.3 Glucose Level 79 Hematocrit 22.5 L Hemoglobin 7.5 L Lymphocytes # 1.2 Lymphocytes % 16.9 Magnesium Level 2.1 Mean Corpuscular Hemoglobin 31.7 Mean Corpuscular Hemoglobin Concent 33.4 Mean Corpuscular Volume 94.9 Mean Platelet Volume 8.9 Monocytes # 0.5 Monocytes % 6.2 Neutrophils # 5.5 Neutrophils % 76.2 Nucleated Red Blood Cells # 0.0 Nucleated Red Blood Cells % 0.0 Phosphorus Level 3.1 Platelet Count 187 Potassium Level 4.4 Red Blood Count 2.37 L Red Cell Distribution Width 16.0 H Sodium Level 138 White Blood Count 7.3 Test 06/18/16 07:56 06/18/16 09:40 06/18/16 12:20 Bedside Glucose 83 153 Hematocrit 24.8 L Hemoglobin 8.3 L Medications Medications Current Medications Aspirin (Halfprin) 81 mg DAILY PO Last administered on 06/18/16 09:54; Admin Dose 81 MG; Start 05/27/16 at 09:00 Clopidogrel Bisulfate (plaVIX) 75 mg DAILY PO Last administered on 06/18/16 09: 54; Admin Dose 75 MG; Start 05/27/16 at 09:00 Ferrous Sulfate (Ferrous Sulfate (Ec)) 325 mg BID PO Last administered on 09:54; Admin Dose 325 MG; Start 05/27/16 at 09:00 Fluticasone Propionate (Flonase 0.05% Nasal) 1 spray BID NASAL Last administered on 06/18/16 09:52; Admin Dose 1 SPRAY; Start 05/27/16 at 09:00 Gabapentin (Neurontin) 300 mg TID PO Last administered on 06/18/16 13:10; Admin Dose 300 MG; Start 05/27/16 at 09:00 Guaifenesin/ Dextromethorphan (Robitussin Dm Liquid Cup) 10 ml Q4H PRN PO COUGH Last administered on 06/16/16 21:31; Admin Dose 10 ML; Start 05/26/16 at 21:30 Montelukast Sodium (Singulair) 10 mg HS PO Last administered on 06/17/16 22:28 ; Admin Dose 10 MG; Start 05/27/16 at 21:00 Oxycodone/ Acetaminophen (Endocet (10/ 325)) 1 tab Q6 PRN PO PAIN Last administered on 06/17/16 09:21; Admin Dose 1 TAB; Start 05/26/16 at 21:30 Salmeterol Xinafoate/ Fluticasone (Advair 500/50 Diskus) 1 inh BID INH Last administered on 06/18/16 09:52; Admin Dose 1 INH; Start 05/27/16 at 09:00 Acetaminophen (Tylenol Tab) 650 mg Q4H PRN PO pain/fever; Start 05/26/16 at 21 :30 Ondansetron HCl (Zofran Inj) 4 mg Q4H PRN IV nausea Last administered on at 17:32; Admin Dose 4 MG; Start 05/26/16 at 21:30 Guaifenesin/ Dextromethorphan (Mucinex Dm) 1 tab BID PO Last administered on 09:52; Admin Dose 1 TAB; Start 05/27/16 at 09:00 Fish Oil (Fish Oil) 1,000 mg DAILY PO Last administered on 06/18/16 09:54; Admin Dose 1,000 MG; Start 05/27/16 at 09:00 Atorvastatin Calcium (Lipitor) 80 mg DAILY@21 PO Last administered on 06/17/16 22:23; Admin Dose 80 MG; Start 05/27/16 at 00:00 Tramadol HCl (Ultram) 50 mg Q6H PRN PO PAIN Last administered on 06/14/16 02:09 ; Admin Dose 50 MG; Start 05/27/16 at 14:00 Miscellaneous Information 1 ea NOTE XX ; Start 05/27/16 at 18:30 Glucose (Glutose) 15 gm Q15M PRN PO DECREASED GLUCOSE; Start 05/27/16 at 18:30 Glucose (Glutose) 22.5 gm Q15M PRN PO DECREASED GLUCOSE; Start 05/27/16 at 18: 30 Dextrose (D50w Syringe) 25 ml Q15M PRN IV DECREASED GLUCOSE Last administered on 06/14/16 12:04; Admin Dose 25 ML; Start 05/27/16 at 18:30 Dextrose (D50w Syringe) 50 ml Q15M PRN IV DECREASED GLUCOSE; Start 05/27/16 at 18:30 Glucagon (Glucagen) 1 mg Q15M PRN IM DECREASED GLUCOSE; Start 05/27/16 at 18: 30 Glucose (Glutose) 15 gm Q15M PRN BUCCAL DECREASED GLUCOSE; Start 05/27/16 at 18:30 IV Flush (NS 10 ml) 10 ml PRN PRN IV IV PROTOCOL; Start 05/28/16 at 17:30 Prednisone (Prednisone) 40 mg DAILY PO Last administered on 06/18/16 09:53; Admin Dose 40 MG; Start 05/30/16 at 09:00 Morphine Sulfate (morphine) 1 mg Q4H PRN IV PAIN Last administered on 06/18/16 09:37; Admin Dose 1 MG; Start 06/01/16 at 09:30 Docusate Sodium (Colace) 100 mg BID PO Last administered on 06/18/16 09:54; Admin Dose 100 MG; Start 06/01/16 at 21:00 Senna (Senokot) 1 tab BID PRN PO CONSTIPATION Last administered on 06/09/16at 20:29; Admin Dose 1 TAB; Start 06/01/16 at 18:30 Digoxin (Digoxin) 0.125 mg DAILY@13 PO Last administered on 06/18/16 13:10; Admin Dose 0.125 MG; Start 06/06/16 at 13:00; Status Future hold Amiodarone HCl (Cordarone) 200 mg DAILY PO Last administered on 06/18/16 09:55 ; Admin Dose 200 MG; Start 06/07/16 at 09:00 Acetylcysteine (Nac) 600 mg BID PO Last administered on 06/18/16 09:53; Admin Dose 600 MG; Start 06/08/16 at 11:00 Enoxaparin Sodium (Lovenox) 80 mg BID SC Last administered on 06/15/16 10:14; Admin Dose 80 MG; Start 06/09/16 at 21:00; Status Future Hold Metoprolol Tartrate (Lopressor) 50 mg BID PO Last administered on 06/18/16 09: 56; Admin Dose 50 MG; Start 06/10/16 at 21:00 Mupirocin 1 applic 1 applic BID TOP Last administered on 06/18/16 09:56; Admin Dose 1 APPLIC; Start 06/14/16 at 15:00; Stop 06/24/16 at 14:59 Vancomycin HCl (Vancocin) 250 ml @ 125 mls/hr Q24H IVPB Last administered on 22:39; Admin Dose 125 MLS/HR; Start 06/15/16 at 23:00 Morphine Sulfate (morphine) 2 mg Q2H PRN IV FOR NON CARDIAC PAIN (4-10) Last administered on 06/18/16 01:55; Admin Dose 2 MG; Start 06/16/16 at 14:30 Morphine Sulfate (morphine) 1 mg Q1H PRN IV PAIN; Start 06/16/16 at 14:30 Lisinopril (Zestril) 5 mg BID PO Last administered on 06/18/16 09:53; Admin Dose 5 MG; Start 06/17/16 at 21:00 Bumetanide (Bumex) 1 mg DAILY PO Last administered on 06/18/16 09:52; Admin Dose 1 MG; Start 06/18/16 at 09:00 Miscellaneous Information (*Rx Drug Level Order Reminder*) VANCO TR LEVEL PRIOR... ONCE ONCE XX ; Start 06/18/16 at 22:00; Stop 06/18/16 at 22:01 Calos Peralta DO Jun 18, 2016 14:19
[2016-06-18] MEDS: MONTELUKAST 10 MG TAB PO SCH (22:36)
[2016-06-18] MEDS: ATORVASTATIN 80 MG TAB PO SCH (22:42)
[2016-06-19] VITALS (8 sets, daily range): BP systolic 110–142; BP diastolic 57–64; PULSE 60–63; RESP 19–20
[2016-06-19] MEDS: ALBUTEROL/IPRATROPIUM (NEB) 3 ML AMP HHN SCH ×3 (01:30→14:10)
[2016-06-19] MEDS ORDERED: VANCOMYCIN 750 MG in SOD CHLORIDE 0.9% 150 ML IVPB SCH (02:00)
[2016-06-19] MEDS: morphine 2 MG INJ IV PRN ×2 (02:12→06:27)
[2016-06-19 06:11] LABS: CREATININE 1.23 mg/dl (0.61-1.24)
[2016-06-19 06:12] LABS: CALCIUM 7.9 mg/dl (8.4-10.2)
[2016-06-19 06:13] LABS: HEMATOCRIT 27.6 % (42.0-52.0); HEMOGLOBIN 9.5 g/dl (14.0-18.0); MEAN CORPUSCULAR HEMOGLOBIN 31.6 pg (29.0-33.0); MEAN CORPUSCULAR HGB CONC 34.3 g/dl (32.0-37.0); MONOCYTE # 0.4 10^3/ul (0.3-0.9); MONOCYTES % 5.3 % (0.0-11.0); NEUTROPHIL # 5.9 10^3/ul (1.6-7.5); NEUTROPHILS % 80.7 % (39.0-77.0); PLATELET COUNT 157 10^3/UL (140-440); RED CELL DISTRIBUTION WIDTH 17.2 % (11.5-14.5); UNCORRECTED WBC 7.3 10^3/ul (4.8-10.8); WHITE BLOOD COUNT 7.3 10^3/ul (4.8-10.8)
[2016-06-19 06:19] LABS: CONDITION 1; LH ANALYZER COMMENTS 1
[2016-06-19 06:27] LABS: PHOSPHORUS 3.1 mg/dl (2.5-4.9)
[2016-06-19 06:28] LABS: MAGNESIUM 1.9 mg/dl (1.7-2.5)
[2016-06-19] MEDS: INSULIN ASPART [NOVOLOG] 3 ML PEN SC SCH ×3 (07:55→17:33)
[2016-06-19] MEDS: SALMETEROL/FLUTICASONE 500/50 INHA INH SCH (09:19)
[2016-06-19] MEDS: GUAIFENESIN/DM (SR) TAB PO SCH (09:20)
[2016-06-19] MEDS: GABAPENTIN 300 MG CAP PO SCH ×2 (09:20→13:23)
[2016-06-19] MEDS: FLUTICASONE 0.05% 16 GM NAS SPRAY NASAL SCH (09:20)
[2016-06-19] MEDS: BUMETANIDE 1 MG TAB PO SCH (09:20)
[2016-06-19] MEDS: FERROUS SULFATE (EC) 325 MG TAB PO SCH (09:21)
[2016-06-19] MEDS: ASPIRIN (EC) 81 MG TAB PO SCH (09:21)
[2016-06-19] MEDS: predniSONE 20 MG TAB PO SCH (09:21)
[2016-06-19] MEDS: METOPROLOL 50 MG TAB PO SCH (09:21)
[2016-06-19] MEDS: DOCUSATE SODIUM 100 MG CAP PO SCH (09:21)
[2016-06-19] MEDS: CLOPIDOGREL 75 MG TAB PO SCH (09:21)
[2016-06-19] MEDS: FISH OIL 1,000 MG CAP PO SCH (09:22)
[2016-06-19] MEDS: AMIODARONE 200 MG TAB PO SCH (09:22)
[2016-06-19] MEDS: LISINOPRIL 5 MG TAB PO SCH (09:22)
[2016-06-19] MEDS: ACETYLCYSTEINE 600 MG CAP PO SCH (09:22)
[2016-06-19] MEDS: MUPIROCIN 2% 22 GM OINT TOP SCH (09:23)
--- NOTE | 2016-06-19 10:21 | PN ---
Date/Time of Note Date/Time of Note DATE: 06/19/16 TIME: 10:17 Assessment/Plan VTE Prophylaxis VTE Prophylaxis Intervention: SCD's Lines/Catheters IV Catheter Type (from Nrsg): PICC Line Central line still needed: Yes (for IV access ) Urinary Cath still in place: No Assessment/Plan Assessment/Plan 80 yo male with: 1. Leukocytosis: resolved with WBC improved back to normal, 1/2 coag neg staph but repeat blood cx NGTD and Enterococcus UTI also, both covered with Vanco S/p BiV/ICD Continue Vanco until 06/25/16 2. NSTEMI, patient s/p TAVR and with cardiomyopathy, s/p PTCA with 1 stent to circ., EF 30% and now s/p BiV/ICD placement On 2L NC, stable respiratory status post procedure Continue ASA and Plavix, BBlock 3. Atrial fibrillation/Atrial Flutter, in SR and atrial arrhythmias, sick sinus syndrome, s/p failed cardioversion for Afib. POD#3 s/p BiV/ICD Appreciate Dr Luis's recommendations. Holding Eliquis and anticoagulant for now, per Dr Wagoner ok to resume antiplatelets but holding anticoagulant due to hematoma at pacer site and easy bleeding. Continue Amiodarone, Lopressor and titrate to HR control. 4. COPD, O2 dependent: on 2L NC currently and BiPAP prn Continue Prednisone to 40 daily for now and will taper further slowly back to outpatient dosing. Nebs rx , Advair and Spiriva Discussed with Pulmonology. 5. JOE on CKD: resolved with renal function back down to baseline now Appreciate Dr Cordero's recommendations. Continue diuresis and monitor electrolytes, renal function and volume status. Replete K today 6. S/p accidental fall weekend prior to admission with RLE Hematoma and RUE ecchymosis and right rib fractures Pain control with Percocet prn and Tramadol prn CT right LE noted. Continue to monitor and wound care prn 7. Acute on chronic Anemia with hematomas and blood loss: s/p 2 units pRBC last night and hb up to 9.5 D/c to SNF today. Monitor h/h periodically. 8. Chronic back pain with acute component now with rib fractures: Percocet and tramadol prn 9. Hypertension: continue current meds 10. Congestive heart failure, systolic dysfunction EF 30 % on echo. S/p episode of volume overload and respiratory distress requiring BIPAP, Resolved peripheral edema and on 2 to 3L NC. on Bumex. 11. Temporal arteritis. The patient is already on prednisone. 12. Previous history of transient ischemic attack. Patient's mental status is stable and at baseline. Monitor Prophylaxis: SCDs as tolerated, PPI for GI ppx while on steroids especially Disposition: SNF today with follow up with Dr Luis next week/Wednesday. Subjective 24 Hr Interval Summary Free Text/Dictation Patient doing Ok and remains stable post pRBC last night Transferring to SNF today Exam/Review of Systems Vital Signs Vitals Vital Signs Date Time Temp Pulse Resp B/P Pulse Ox O2 Delivery O2 Flow Rate FiO2 06/19/16 08:40 62 06/19/16 07:38 99 3.0 06/19/16 07:36 20 Nasal Cannula 06/19/16 06:56 98.0 142/64 06/17/16 16:39 32 Intake and Output 06/18/16 06/18/16 06/19/16 15:00 23:00 07:00 Intake Total 860 ml 850 ml Output Total 400 ml 750 ml Balance 460 ml 100 ml Exam Constitutional: alert, frail, oriented Cardiovascular: nl pulses, regular rate and rhythm Gastrointestinal: non-tender, soft Musculoskeletal: nl gait and stance, other (UE and LE b/l ecchymosis ) 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, nl mental status, nl speech, other ( genralised weakness ) Results Result Diagram: 06/19/16 0534 06/19/16 0534 Results 24 hrs Laboratory Tests Test 06/18/16 12:20 06/18/16 17:04 06/18/16 20:17 06/18/16 21:59 Bedside Glucose 153 226 H 245 H Vancomycin Level Trough 19.0 Test 06/19/16 01:49 06/19/16 05:34 06/19/16 07:52 Bedside Glucose 195 92 Anion Gap 9 Basophils # 0.0 Basophils % 0.0 Blood Morphology Comment Blood Urea Nitrogen 34 H Calcium Level 7.9 L Carbon Dioxide Level 32 H Chloride Level 101 Creatinine 1.23 Eosinophils # 0.0 Eosinophils % 0.0 Glucose Level 91 Hematocrit 27.6 L Hemoglobin 9.5 L Lymphocytes # 1.0 Lymphocytes % 14.0 L Magnesium Level 1.9 Mean Corpuscular Hemoglobin 31.6 Mean Corpuscular Hemoglobin Concent 34.3 Mean Corpuscular Volume 92.0 Mean Platelet Volume 9.0 Monocytes # 0.4 Monocytes % 5.3 Neutrophils # 5.9 Neutrophils % 80.7 H Nucleated Red Blood Cells # 0.0 Nucleated Red Blood Cells % 0.0 Phosphorus Level 3.1 Platelet Count 157 Potassium Level 4.0 Red Blood Count 3.00 #L Red Cell Distribution Width 17.2 H Sodium Level 138 White Blood Count 7.3 Medications Medications Current Medications Aspirin (Halfprin) 81 mg DAILY PO Last administered on 06/19/16 09:21; Admin Dose 81 MG; Start 05/27/16 at 09:00 Clopidogrel Bisulfate (plaVIX) 75 mg DAILY PO Last administered on 06/19/16 09: 21; Admin Dose 75 MG; Start 05/27/16 at 09:00 Ferrous Sulfate (Ferrous Sulfate (Ec)) 325 mg BID PO Last administered on 09:21; Admin Dose 325 MG; Start 05/27/16 at 09:00 Fluticasone Propionate (Flonase 0.05% Nasal) 1 spray BID NASAL Last administered on 06/19/16 09:20; Admin Dose 1 SPRAY; Start 05/27/16 at 09:00 Gabapentin (Neurontin) 300 mg TID PO Last administered on 06/19/16 09:20; Admin Dose 300 MG; Start 05/27/16 at 09:00 Guaifenesin/ Dextromethorphan (Robitussin Dm Liquid Cup) 10 ml Q4H PRN PO COUGH Last administered on 06/16/16 21:31; Admin Dose 10 ML; Start 05/26/16 at 21:30 Montelukast Sodium (Singulair) 10 mg HS PO Last administered on 06/18/16 22:36 ; Admin Dose 10 MG; Start 05/27/16 at 21:00 Oxycodone/ Acetaminophen (Endocet (10/ 325)) 1 tab Q6 PRN PO PAIN Last administered on 06/17/16 09:21; Admin Dose 1 TAB; Start 05/26/16 at 21:30 Salmeterol Xinafoate/ Fluticasone (Advair 500/50 Diskus) 1 inh BID INH Last administered on 06/19/16 09:19; Admin Dose 1 INH; Start 05/27/16 at 09:00 Acetaminophen (Tylenol Tab) 650 mg Q4H PRN PO pain/fever; Start 05/26/16 at 21 :30 Ondansetron HCl (Zofran Inj) 4 mg Q4H PRN IV nausea Last administered on at 17:32; Admin Dose 4 MG; Start 05/26/16 at 21:30 Guaifenesin/ Dextromethorphan (Mucinex Dm) 1 tab BID PO Last administered on 09:20; Admin Dose 1 TAB; Start 05/27/16 at 09:00 Fish Oil (Fish Oil) 1,000 mg DAILY PO Last administered on 06/19/16 09:22; Admin Dose 1,000 MG; Start 05/27/16 at 09:00 Atorvastatin Calcium (Lipitor) 80 mg DAILY@21 PO Last administered on 06/18/16 22:42; Admin Dose 80 MG; Start 05/27/16 at 00:00 Tramadol HCl (Ultram) 50 mg Q6H PRN PO PAIN Last administered on 06/14/16 02:09 ; Admin Dose 50 MG; Start 05/27/16 at 14:00 Miscellaneous Information 1 ea NOTE XX ; Start 05/27/16 at 18:30 Glucose (Glutose) 15 gm Q15M PRN PO DECREASED GLUCOSE; Start 05/27/16 at 18:30 Glucose (Glutose) 22.5 gm Q15M PRN PO DECREASED GLUCOSE; Start 05/27/16 at 18: 30 Dextrose (D50w Syringe) 25 ml Q15M PRN IV DECREASED GLUCOSE Last administered on 06/14/16 12:04; Admin Dose 25 ML; Start 05/27/16 at 18:30 Dextrose (D50w Syringe) 50 ml Q15M PRN IV DECREASED GLUCOSE; Start 05/27/16 at 18:30 Glucagon (Glucagen) 1 mg Q15M PRN IM DECREASED GLUCOSE; Start 05/27/16 at 18: 30 Glucose (Glutose) 15 gm Q15M PRN BUCCAL DECREASED GLUCOSE; Start 05/27/16 at 18:30 IV Flush (NS 10 ml) 10 ml PRN PRN IV IV PROTOCOL; Start 05/28/16 at 17:30 Prednisone (Prednisone) 40 mg DAILY PO Last administered on 06/19/16 09:21; Admin Dose 40 MG; Start 05/30/16 at 09:00 Morphine Sulfate (morphine) 1 mg Q4H PRN IV PAIN Last administered on 06/18/16 09:37; Admin Dose 1 MG; Start 06/01/16 at 09:30 Docusate Sodium (Colace) 100 mg BID PO Last administered on 06/19/16 09:21; Admin Dose 100 MG; Start 06/01/16 at 21:00 Senna (Senokot) 1 tab BID PRN PO CONSTIPATION Last administered on 06/09/16at 20:29; Admin Dose 1 TAB; Start 06/01/16 at 18:30 Amiodarone HCl (Cordarone) 200 mg DAILY PO Last administered on 06/19/16 09:22 ; Admin Dose 200 MG; Start 06/07/16 at 09:00 Acetylcysteine (Nac) 600 mg BID PO Last administered on 06/19/16 09:22; Admin Dose 600 MG; Start 06/08/16 at 11:00 Enoxaparin Sodium (Lovenox) 80 mg BID SC Last administered on 06/15/16 10:14; Admin Dose 80 MG; Start 06/09/16 at 21:00; Status Future Hold Metoprolol Tartrate (Lopressor) 50 mg BID PO Last administered on 06/19/16 09: 21; Admin Dose 50 MG; Start 06/10/16 at 21:00 Mupirocin (Bactroban) 1 applic BID TOP Last administered on 06/19/16 09:23; Admin Dose 1 APPLIC; Start 06/14/16 at 15:00; Stop 06/24/16 at 14:59 Morphine Sulfate (morphine) 2 mg Q2H PRN IV FOR NON CARDIAC PAIN (4-10) Last administered on 06/19/16 06:27; Admin Dose 2 MG; Start 06/16/16 at 14:30 Morphine Sulfate (morphine) 1 mg Q1H PRN IV PAIN; Start 06/16/16 at 14:30 Lisinopril (Zestril) 5 mg BID PO Last administered on 06/19/16 09:22; Admin Dose 5 MG; Start 06/17/16 at 21:00 Bumetanide 1 mg 1 mg DAILY PO Last administered on 06/19/16 09:20; Admin Dose 1 MG; Start 06/18/16 at 09:00 Vancomycin HCl/ Sodium Chloride (Vancocin/NS) 150 ml @ 75 mls/hr Q24H IVPB Last administered on 06/19/16 01:53; Admin Dose 75 MLS/HR; Start 06/19/16 at 02: 00 RICHIE SWEET Jun 19, 2016 10:21
--- NOTE | 2016-06-19 10:24 | PDOCDIS ---
Discharge Instructions CONDITION Patient Condition: Stable HOME CARE INSTRUCTIONS: Special Diet: 2gNa ACTIVITY: Activity Restrictions: No Restrictions FOLLOW UP/APPOINTMENTS Appointments Follow up with Dr Luis next week for Bi V/ICD check RICHIE SWEET Jun 19, 2016 10:24
[2016-06-19] MEDS ORDERED: BUMETANIDE 1 MG INJ IV ONE (12:00)
[2016-06-19] MEDS ORDERED: MAGNESIUM SULFATE 2 GM/50 ML 50 ML IVPB ONE (12:00)
--- NOTE | 2016-06-19 12:00 | CONS ---
Date/Time of Note Date/Time of Note DATE: 06/19/16 TIME: 11:57 Assessment/Plan Assessment/Plan Additional Assessment/Plan Non-ST elevation [place] status post drug-eluting stenting to circumflex 06/01/2016 Respiratory Failure Acute Decompensated Systolic CHF, improving Paroxysmal atrial fibrillation/flutter Transient heart block status post pacemaker 06/16/2016 Acute kidney injury, resolved Cardiomyopathy ejection fraction 35% Aortic stenosis, status post transcatheter aortic valve replacement in January 2015. Chronic obstructive pulmonary disease on home oxygen. -Left upper wall pacemaker generator site hematoma improved. Anticoagulation on hold secondary to hematoma. Blood pressure well-controlled. Would continue aspirin, Plavix therapy for minimum of 1 year to maintain stent patency. Extra dose of diuretics today. Consultation Date/Type/Reason Admit Date/Time May 26, 2016 at 19:17 Type of Consultation: cv 24 HR Interval Summary Free Text/Dictation Patient with progressive improvement in activity, denies shortness of breath during physical therapy today, denies dizziness Exam/Review of Systems Vital Signs Vitals Vital Signs Date Time Temp Pulse Resp B/P Pulse Ox O2 Delivery O2 Flow Rate FiO2 06/19/16 11:22 98.0 60 20 110/57 95 06/19/16 07:38 3.0 06/19/16 07:36 Nasal Cannula 06/17/16 16:39 32 Intake and Output 06/18/16 06/18/16 06/19/16 15:00 23:00 07:00 Intake Total 860 ml 850 ml Output Total 400 ml 750 ml Balance 460 ml 100 ml Exam Undergoing physical therapy, no apparent distress Constitutional: alert, frail, oriented Head: normocephalic Neck: supple Respiratory: other (course breath sounds bilaterally, no wheezing, mild scattered crackles) Cardiovascular: other, regular rate and rhythm, systolic murmur Gastrointestinal: bowel sounds, non-tender, soft Extremities: edema (trace) Results Result Diagram: 06/19/16 0534 06/19/16 0534 Results 24 hrs Laboratory Tests Test 06/18/16 12:20 06/18/16 17:04 06/18/16 20:17 06/18/16 21:59 Bedside Glucose 153 226 H 245 H Vancomycin Level Trough 19.0 Test 06/19/16 01:49 06/19/16 05:34 06/19/16 07:52 1/6/17 11:45 Bedside Glucose 195 92 178 Anion Gap 9 Basophils # 0.0 Basophils % 0.0 Blood Morphology Comment Blood Urea Nitrogen 34 H Calcium Level 7.9 L Carbon Dioxide Level 32 H Chloride Level 101 Creatinine 1.23 Eosinophils # 0.0 Eosinophils % 0.0 Glucose Level 91 Hematocrit 27.6 L Hemoglobin 9.5 L Lymphocytes # 1.0 Lymphocytes % 14.0 L Magnesium Level 1.9 Mean Corpuscular Hemoglobin 31.6 Mean Corpuscular Hemoglobin Concent 34.3 Mean Corpuscular Volume 92.0 Mean Platelet Volume 9.0 Monocytes # 0.4 Monocytes % 5.3 Neutrophils # 5.9 Neutrophils % 80.7 H Nucleated Red Blood Cells # 0.0 Nucleated Red Blood Cells % 0.0 Phosphorus Level 3.1 Platelet Count 157 Potassium Level 4.0 Red Blood Count 3.00 #L Red Cell Distribution Width 17.2 H Sodium Level 138 White Blood Count 7.3 Medications Medications Current Medications Aspirin (Halfprin) 81 mg DAILY PO Last administered on 06/19/16 09:21; Admin Dose 81 MG; Start 05/27/16 at 09:00 Clopidogrel Bisulfate (plaVIX) 75 mg DAILY PO Last administered on 06/19/16 09: 21; Admin Dose 75 MG; Start 05/27/16 at 09:00 Ferrous Sulfate (Ferrous Sulfate (Ec)) 325 mg BID PO Last administered on 09:21; Admin Dose 325 MG; Start 05/27/16 at 09:00 Fluticasone Propionate (Flonase 0.05% Nasal) 1 spray BID NASAL Last administered on 06/19/16 09:20; Admin Dose 1 SPRAY; Start 05/27/16 at 09:00 Gabapentin (Neurontin) 300 mg TID PO Last administered on 06/19/16 09:20; Admin Dose 300 MG; Start 05/27/16 at 09:00 Guaifenesin/ Dextromethorphan (Robitussin Dm Liquid Cup) 10 ml Q4H PRN PO COUGH Last administered on 06/16/16 21:31; Admin Dose 10 ML; Start 05/26/16 at 21:30 Montelukast Sodium (Singulair) 10 mg HS PO Last administered on 06/18/16 22:36 ; Admin Dose 10 MG; Start 05/27/16 at 21:00 Oxycodone/ Acetaminophen (Endocet (10/ 325)) 1 tab Q6 PRN PO PAIN Last administered on 06/17/16 09:21; Admin Dose 1 TAB; Start 05/26/16 at 21:30 Salmeterol Xinafoate/ Fluticasone (Advair 500/50 Diskus) 1 inh BID INH Last administered on 06/19/16 09:19; Admin Dose 1 INH; Start 05/27/16 at 09:00 Acetaminophen (Tylenol Tab) 650 mg Q4H PRN PO pain/fever; Start 05/26/16 at 21 :30 Ondansetron HCl (Zofran Inj) 4 mg Q4H PRN IV nausea Last administered on at 17:32; Admin Dose 4 MG; Start 05/26/16 at 21:30 Guaifenesin/ Dextromethorphan (Mucinex Dm) 1 tab BID PO Last administered on 09:20; Admin Dose 1 TAB; Start 05/27/16 at 09:00 Fish Oil (Fish Oil) 1,000 mg DAILY PO Last administered on 06/19/16 09:22; Admin Dose 1,000 MG; Start 05/27/16 at 09:00 Atorvastatin Calcium (Lipitor) 80 mg DAILY@21 PO Last administered on 06/18/16 22:42; Admin Dose 80 MG; Start 05/27/16 at 00:00 Tramadol HCl (Ultram) 50 mg Q6H PRN PO PAIN Last administered on 06/14/16 02:09 ; Admin Dose 50 MG; Start 05/27/16 at 14:00 Miscellaneous Information 1 ea NOTE XX ; Start 05/27/16 at 18:30 Glucose (Glutose) 15 gm Q15M PRN PO DECREASED GLUCOSE; Start 05/27/16 at 18:30 Glucose (Glutose) 22.5 gm Q15M PRN PO DECREASED GLUCOSE; Start 05/27/16 at 18: 30 Dextrose (D50w Syringe) 25 ml Q15M PRN IV DECREASED GLUCOSE Last administered on 06/14/16 12:04; Admin Dose 25 ML; Start 05/27/16 at 18:30 Dextrose (D50w Syringe) 50 ml Q15M PRN IV DECREASED GLUCOSE; Start 05/27/16 at 18:30 Glucagon (Glucagen) 1 mg Q15M PRN IM DECREASED GLUCOSE; Start 05/27/16 at 18: 30 Glucose (Glutose) 15 gm Q15M PRN BUCCAL DECREASED GLUCOSE; Start 05/27/16 at 18:30 IV Flush (NS 10 ml) 10 ml PRN PRN IV IV PROTOCOL; Start 05/28/16 at 17:30 Prednisone (Prednisone) 40 mg DAILY PO Last administered on 06/19/16 09:21; Admin Dose 40 MG; Start 05/30/16 at 09:00 Morphine Sulfate (morphine) 1 mg Q4H PRN IV PAIN Last administered on 06/18/16 09:37; Admin Dose 1 MG; Start 06/01/16 at 09:30 Docusate Sodium (Colace) 100 mg BID PO Last administered on 06/19/16 09:21; Admin Dose 100 MG; Start 06/01/16 at 21:00 Senna (Senokot) 1 tab BID PRN PO CONSTIPATION Last administered on 06/09/16at 20:29; Admin Dose 1 TAB; Start 06/01/16 at 18:30 Amiodarone HCl (Cordarone) 200 mg DAILY PO Last administered on 06/19/16 09:22 ; Admin Dose 200 MG; Start 06/07/16 at 09:00 Acetylcysteine (Nac) 600 mg BID PO Last administered on 06/19/16 09:22; Admin Dose 600 MG; Start 06/08/16 at 11:00 Enoxaparin Sodium (Lovenox) 80 mg BID SC Last administered on 06/15/16 10:14; Admin Dose 80 MG; Start 06/09/16 at 21:00; Status Future Hold Metoprolol Tartrate (Lopressor) 50 mg BID PO Last administered on 06/19/16 09: 21; Admin Dose 50 MG; Start 06/10/16 at 21:00 Mupirocin (Bactroban) 1 applic BID TOP Last administered on 06/19/16 09:23; Admin Dose 1 APPLIC; Start 06/14/16 at 15:00; Stop 06/24/16 at 14:59 Morphine Sulfate (morphine) 2 mg Q2H PRN IV FOR NON CARDIAC PAIN (4-10) Last administered on 06/19/16 06:27; Admin Dose 2 MG; Start 06/16/16 at 14:30 Morphine Sulfate (morphine) 1 mg Q1H PRN IV PAIN; Start 06/16/16 at 14:30 Lisinopril (Zestril) 5 mg BID PO Last administered on 06/19/16 09:22; Admin Dose 5 MG; Start 06/17/16 at 21:00 Bumetanide 1 mg 1 mg DAILY PO Last administered on 06/19/16 09:20; Admin Dose 1 MG; Start 06/18/16 at 09:00 Vancomycin HCl/ Sodium Chloride (Vancocin/NS) 150 ml @ 75 mls/hr Q24H IVPB Last administered on 06/19/16 01:53; Admin Dose 75 MLS/HR; Start 06/19/16 at 02: 00 Calos Peralta DO Jun 19, 2016 12:00
--- NOTE | 2016-06-19 13:46 | CONS ---
Date/Time of Note Date/Time of Note DATE: 06/19/16 TIME: 13:45 Consult Date/Type/Reason Admit Date/Time May 26, 2016 at 19:17 Initial Consult Date 05/28/16 Type of Consultation: ID Subjective no acute changes, alert, feels good, no fevers, nad Objective Vital Signs Date Time Temp Pulse Resp B/P Pulse Ox O2 Delivery O2 Flow Rate FiO2 06/19/16 12:24 60 06/19/16 11:22 98.0 20 110/57 95 06/19/16 07:38 3.0 06/19/16 07:36 Nasal Cannula 06/17/16 16:39 32 Intake and Output 06/18/16 06/18/16 06/19/16 15:00 23:00 07:00 Intake Total 860 ml 850 ml Output Total 400 ml 750 ml Balance 460 ml 100 ml Results/Medications Result Diagram: 06/19/16 0534 06/19/16 0534 Results 24 hrs Laboratory Tests Test 06/18/16 17:04 06/18/16 20:17 06/18/16 21:59 06/19/16 01:49 Bedside Glucose 226 H 245 H 195 Vancomycin Level Trough 19.0 Test 06/19/16 05:34 06/19/16 07:52 06/19/16 11:45 Anion Gap 9 Basophils # 0.0 Basophils % 0.0 Blood Morphology Comment Blood Urea Nitrogen 34 H Calcium Level 7.9 L Carbon Dioxide Level 32 H Chloride Level 101 Creatinine 1.23 Eosinophils # 0.0 Eosinophils % 0.0 Glucose Level 91 Hematocrit 27.6 L Hemoglobin 9.5 L Lymphocytes # 1.0 Lymphocytes % 14.0 L Magnesium Level 1.9 Mean Corpuscular Hemoglobin 31.6 Mean Corpuscular Hemoglobin Concent 34.3 Mean Corpuscular Volume 92.0 Mean Platelet Volume 9.0 Monocytes # 0.4 Monocytes % 5.3 Neutrophils # 5.9 Neutrophils % 80.7 H Nucleated Red Blood Cells # 0.0 Nucleated Red Blood Cells % 0.0 Phosphorus Level 3.1 Platelet Count 157 Potassium Level 4.0 Red Blood Count 3.00 #L Red Cell Distribution Width 17.2 H Sodium Level 138 White Blood Count 7.3 Bedside Glucose 92 178 Medications Current Medications Aspirin (Halfprin) 81 mg DAILY PO Last administered on 06/19/16t 09:21; Admin Dose 81 MG; Start 12/14/16 at 09:00 Clopidogrel Bisulfate (plaVIX) 75 mg DAILY PO Last administered on 06/19/16 09: 21; Admin Dose 75 MG; Start 05/27/16 at 09:00 Ferrous Sulfate (Ferrous Sulfate (Ec)) 325 mg BID PO Last administered on 09:21; Admin Dose 325 MG; Start 05/27/16 at 09:00 Fluticasone Propionate (Flonase 0.05% Nasal) 1 spray BID NASAL Last administered on 06/19/16 09:20; Admin Dose 1 SPRAY; Start 05/27/16 at 09:00 Gabapentin (Neurontin) 300 mg TID PO Last administered on 06/19/16 13:23; Admin Dose 300 MG; Start 05/27/16 at 09:00 Guaifenesin/ Dextromethorphan (Robitussin Dm Liquid Cup) 10 ml Q4H PRN PO COUGH Last administered on 06/16/16 21:31; Admin Dose 10 ML; Start 05/26/16 at 21:30 Montelukast Sodium (Singulair) 10 mg HS PO Last administered on 06/18/16 22:36 ; Admin Dose 10 MG; Start 05/27/16 at 21:00 Oxycodone/ Acetaminophen (Endocet (10/ 325)) 1 tab Q6 PRN PO PAIN Last administered on 06/17/16 09:21; Admin Dose 1 TAB; Start 05/26/16 at 21:30 Salmeterol Xinafoate/ Fluticasone (Advair 500/50 Diskus) 1 inh BID INH Last administered on 06/19/16 09:19; Admin Dose 1 INH; Start 05/27/16 at 09:00 Acetaminophen (Tylenol Tab) 650 mg Q4H PRN PO pain/fever; Start 05/26/16 at 21 :30 Ondansetron HCl (Zofran Inj) 4 mg Q4H PRN IV nausea Last administered on at 17:32; Admin Dose 4 MG; Start 05/26/16 at 21:30 Guaifenesin/ Dextromethorphan (Mucinex Dm) 1 tab BID PO Last administered on 09:20; Admin Dose 1 TAB; Start 05/27/16 at 09:00 Fish Oil (Fish Oil) 1,000 mg DAILY PO Last administered on 06/19/16 09:22; Admin Dose 1,000 MG; Start 05/27/16 at 09:00 Atorvastatin Calcium (Lipitor) 80 mg DAILY@21 PO Last administered on 06/18/16 22:42; Admin Dose 80 MG; Start 05/27/16 at 00:00 Tramadol HCl (Ultram) 50 mg Q6H PRN PO PAIN Last administered on 06/14/16 02:09 ; Admin Dose 50 MG; Start 05/27/16 at 14:00 Miscellaneous Information 1 ea NOTE XX ; Start 05/27/16 at 18:30 Glucose (Glutose) 15 gm Q15M PRN PO DECREASED GLUCOSE; Start 05/27/16 at 18:30 Glucose (Glutose) 22.5 gm Q15M PRN PO DECREASED GLUCOSE; Start 05/27/16 at 18: 30 Dextrose (D50w Syringe) 25 ml Q15M PRN IV DECREASED GLUCOSE Last administered on 06/14/16 12:04; Admin Dose 25 ML; Start 05/27/16 at 18:30 Dextrose (D50w Syringe) 50 ml Q15M PRN IV DECREASED GLUCOSE; Start 05/27/16 at 18:30 Glucagon (Glucagen) 1 mg Q15M PRN IM DECREASED GLUCOSE; Start 05/27/16 at 18: 30 Glucose (Glutose) 15 gm Q15M PRN BUCCAL DECREASED GLUCOSE; Start 05/27/16 at 18:30 IV Flush (NS 10 ml) 10 ml PRN PRN IV IV PROTOCOL; Start 05/28/16 at 17:30 Prednisone (Prednisone) 40 mg DAILY PO Last administered on 06/19/16 09:21; Admin Dose 40 MG; Start 05/30/16 at 09:00 Morphine Sulfate (morphine) 1 mg Q4H PRN IV PAIN Last administered on 06/18/16 09:37; Admin Dose 1 MG; Start 06/01/16 at 09:30 Docusate Sodium (Colace) 100 mg BID PO Last administered on 06/19/16 09:21; Admin Dose 100 MG; Start 06/01/16 at 21:00 Senna (Senokot) 1 tab BID PRN PO CONSTIPATION Last administered on 06/09/16at 20:29; Admin Dose 1 TAB; Start 06/01/16 at 18:30 Amiodarone HCl (Cordarone) 200 mg DAILY PO Last administered on 06/19/16 09:22 ; Admin Dose 200 MG; Start 06/07/16 at 09:00 Enoxaparin Sodium (Lovenox) 80 mg BID SC Last administered on 06/15/16 10:14; Admin Dose 80 MG; Start 06/09/16 at 21:00; Status Future Hold Metoprolol Tartrate (Lopressor) 50 mg BID PO Last administered on 06/19/16 09: 21; Admin Dose 50 MG; Start 06/10/16 at 21:00 Mupirocin (Bactroban) 1 applic BID TOP Last administered on 06/19/16 09:23; Admin Dose 1 APPLIC; Start 06/14/16 at 15:00; Stop 06/24/16 at 14:59 Morphine Sulfate (morphine) 2 mg Q2H PRN IV FOR NON CARDIAC PAIN (4-10) Last administered on 06/19/16 06:27; Admin Dose 2 MG; Start 06/16/16 at 14:30 Morphine Sulfate (morphine) 1 mg Q1H PRN IV PAIN; Start 06/16/16 at 14:30 Lisinopril (Zestril) 5 mg BID PO Last administered on 06/19/16 09:22; Admin Dose 5 MG; Start 06/17/16 at 21:00 Bumetanide 1 mg 1 mg DAILY PO Last administered on 06/19/16 09:20; Admin Dose 1 MG; Start 06/18/16 at 09:00 Vancomycin HCl 750 mg/Sodium Chloride 150 ml @ 75 mls/hr Q24H IVPB Last administered on 06/19/16 01:53; Admin Dose 75 MLS/HR; Start 06/19/16 at 02:00 Magnesium Sulfate (Magnesium Sulfate 2 Gm/50 ml) 50 ml @ 25 mls/hr ONCE ONCE IVPB Last administered on 06/19/16 13:39; Admin Dose 25 MLS/HR; Start 06/19/16 at 12:00; Stop 06/19/16 at 13:59 Assessment/Plan Chief Complaint/Hosp Course MICROBIOLOGY: Repeat blood cultures remain negative. INDWELLINGS: Permanent pacemaker and right upper extremity PICC line. ANTIMICROBIALS: 1. Vancomycin. PHYSICAL EXAMINATION: GENERAL: Fragile, elderly man who is alert, in no distress. HEENT: Head atraumatic, normocephalic. Sclerae anicteric. Buccal mucosa pink. NECK: Supple, trachea midline. CHEST: Rise symmetrical. Breath sounds clear with scattered crackles to bases. HEART: S1, S2. ABDOMEN: Soft, bowel tones present. EXTREMITIES: No cyanosis. ASSESSMENT: 1. Status post coagulase-negative Staphylococcus bacteremia and enterococcal urinary tract infection. 2. Chronic obstructive pulmonary disease. 3. Sick sinus syndrome, status post permanent pacemaker placement. 4. Aortic stenosis, status post aortic valve replacement in January 2015. PLAN: The patient remains stable, completing antibiotics==> last dose on . Continue present care. Pending dc planning. JOSE staff Problems: ROSA ISELA DAVIDSON NP Jun 19, 2016 13:46
== END 2016-06-19 18:50 | DRG 222 ==
LOC: E/R 14:54 → MS4 19:17 → ICU 05-31 13:33 → TEL 06-04 15:51
PROVIDERS: ADMIT Legal Medicine; ATTEND Legal Medicine
PROC: 02HV33Z Insertion of Infusion Device into Superior Vena Cava, Percutaneous Approach (ICD-10-PCS; 2016-05-28)
PROC: 4A023N7 Measurement of Cardiac Sampling and Pressure, Left Heart, Percutaneous Approach (ICD-10-PCS; 2016-06-01)
PROC: B211YZZ Fluoroscopy of Multiple Coronary Arteries using Other Contrast (ICD-10-PCS; 2016-06-01)
PROC: 5A09457 Assistance with Respiratory Ventilation, 24-96 Consecutive Hours, Continuous Positive Airway Pressure (ICD-10-PCS; 2016-06-01)
PROC: 027034Z Dilation of Coronary Artery, One Artery with Drug-eluting Intraluminal Device, Percutaneous Approach (ICD-10-PCS; principal; 2016-06-01 10:00)
PROC: 5A2204Z Restoration of Cardiac Rhythm, Single (ICD-10-PCS; 2016-06-03)
PROC: 02HV33Z Insertion of Infusion Device into Superior Vena Cava, Percutaneous Approach (ICD-10-PCS; 2016-06-14)
PROC: 0JH609Z Insertion of Cardiac Resynchronization Defibrillator Pulse Generator into Chest Subcutaneous Tissue and Fascia, Open Approach (ICD-10-PCS; 2016-06-16)
PROC: 02HK3KZ Insertion of Defibrillator Lead into Right Ventricle, Percutaneous Approach (ICD-10-PCS; 2016-06-16)
PROC: 02H43KZ Insertion of Defibrillator Lead into Coronary Vein, Percutaneous Approach (ICD-10-PCS; 2016-06-16)
PROC: 02H63KZ Insertion of Defibrillator Lead into Right Atrium, Percutaneous Approach (ICD-10-PCS; 2016-06-16)
DX: I21.4 Non-ST elevation (NSTEMI) myocardial infarction (principal); I50.23 Acute on chronic systolic (congestive) heart failure; N17.0 Acute kidney failure with tubular necrosis; J95.822 Acute and chronic postprocedural respiratory failure; J18.9 Pneumonia, unspecified organism; E87.2 Acidosis; S22.41XA Multiple fractures of ribs, right side, initial encounter for closed fracture; I13.0 Hypertensive heart and chronic kidney disease with heart failure and stage 1 through stage 4 chronic kidney disease, or unspecified chronic kidney disease; D62 Acute posthemorrhagic anemia; I48.92 Unspecified atrial flutter; N39.0 Urinary tract infection, site not specified; R78.81 Bacteremia; J44.1 Chronic obstructive pulmonary disease with (acute) exacerbation; E78.5 Hyperlipidemia, unspecified; I25.10 Atherosclerotic heart disease of native coronary artery without angina pectoris; M31.6 Other giant cell arteritis; E87.5 Hyperkalemia; N18.9 Chronic kidney disease, unspecified; W18.39XA Other fall on same level, initial encounter; S80.11XA Contusion of right lower leg, initial encounter; G89.29 Other chronic pain; M54.9 Dorsalgia, unspecified; I48.0 Paroxysmal atrial fibrillation; S40.021A Contusion of right upper arm, initial encounter; I49.5 Sick sinus syndrome; I25.5 Ischemic cardiomyopathy; Y83.8 Other surgical procedures as the cause of abnormal reaction of the patient, or of later complication, without mention of misadventure at the time of the procedure; Y92.89 Other specified places as the place of occurrence of the external cause; Y92.238 Other place in hospital as the place of occurrence of the external cause; Z86.73 Personal history of transient ischemic attack (TIA), and cerebral infarction without residual deficits; B95.2 Enterococcus as the cause of diseases classified elsewhere; B95.7 Other staphylococcus as the cause of diseases classified elsewhere; Z99.81 Dependence on supplemental oxygen; Z95.2 Presence of prosthetic heart valve
CPT/HCPCS: 33240; 33249; 36430; 36569; 36600; 71010; 71260; 73700; 74177; 76775; 76937; 80048; 80053; 80162; 80202; 81001; 81003; 82550; 82553; 82565; 82570; 82803; 82962; 83540; 83605; 83735; 83880; 84100; 84300; 84484; 84520; 85014; 85018; 85025; 85610; 85651; 85730; 86850; 86900; 86901; 86920; 87040; 87086; 89190; 93005; 93306; 93458; 94640; 94660; 94664; 96361; 96365; 96375; 97001; 97110; 97116; 97164; 97530; J1940; C1725; C1769; C1874; C1882; C1887; C1895; C2629; C9600; J0282; J0456; J0690; J0696; J0886; J1644; J1815; J1956; J2250; J2270; J2405; J2930; J3010; J3370; J3475; J7030; J7040; J7050; J7512; P9016; P9047; Q9967

== ENCOUNTER 2016-06-28 02:04 | Inpatient (IN) | payer OTHER, MEDICAID ==
[~2016-06-28] VITALS: Ht 167.6 cm; Wt 78.8 kg
[2016-06-28] VITALS (8 sets, daily range): BP systolic 118–130; BP diastolic 57–60; PULSE 60–68; RESP 16–19; TEMP 98.5; Ht 167.6 cm; Wt 78.8 kg
[2016-06-28] MEDS ORDERED: SODIUM CHLORIDE 0.9% 1L BAG IV* STA (02:12)
[2016-06-28] MEDS ORDERED: IPRATROPIUM (NEB) 0.5 MG/2.5 ML AMP INH STA (02:20)
[2016-06-28] MEDS ORDERED: METHYLPREDNISOLONE 125 MG INJ IV STA (02:20)
[2016-06-28] MEDS ORDERED: ALBUTEROL 0.5% (NEB) 2.5 MG/0.5 ML AMP INH STA (02:20)
[2016-06-28] MEDS ORDERED: CEFEPIME 1GM/50 ML (PMX) 50 ML IVPB ONE (02:30)
[2016-06-28] MEDS ORDERED: VANCOMYCIN 1 GM (PMX) 250 ML IVPB SCH (02:30)
[2016-06-28] MEDS ORDERED: IBUPROFEN 600 MG TAB PO ONE (02:30)
[2016-06-28] MEDS ORDERED: PIPER-TAZO 3.375 GM IV (PMX) 100 ML IVPB ONE (02:30)
[2016-06-28] MEDS ORDERED: ASPIRIN 325 MG TAB PO ONE (02:30)
[2016-06-28] MEDS ORDERED: ONDANSETRON 4 MG INJ IV STA (02:31)
[2016-06-28 03:06] LABS: BASOPHILS % 0.3 % (0.0-2.0); CONDITION 1; EOSINOPHILS # 0.4 10^3/ul (0.0-0.5); HEMATOCRIT 28.6 % (42.0-52.0); HEMOGLOBIN 9.4 g/dl (14.0-18.0); LH ANALYZER COMMENTS 1; LYMPHOCYTES # 2.3 10^3/ul (0.8-2.9); LYMPHOCYTES % 18.7 % (15.0-51.0); MEAN CORPUSCULAR HEMOGLOBIN 30.6 pg (29.0-33.0); MEAN CORPUSCULAR VOLUME 92.9 fl (82.0-101.0); MEAN PLATELET VOLUME 7.8 fl (7.4-10.4); MONOCYTE # 0.1 10^3/ul (0.3-0.9); NEUTROPHIL # 9.4 10^3/ul (1.6-7.5); PLATELET COUNT 128 10^3/UL (140-440); RED BLOOD COUNT 3.08 10^6/ul (4.70-6.10); RED CELL DISTRIBUTION WIDTH 16.7 % (11.5-14.5); UNCORRECTED WBC 12.2 10^3/ul (4.8-10.8); WHITE BLOOD COUNT 12.2 10^3/ul (4.8-10.8)
[2016-06-28 03:13] LABS: ALBUMIN 2.7 g/dl (3.3-4.9); CHLORIDE 105 mmol/L (97-110)
[2016-06-28 03:14] LABS: POTASSIUM 3.5 mmol/L (3.5-5.1); SODIUM 148 mmol/L (135-144)
[2016-06-28 03:16] LABS: ALBUMIN/GLOBULIN RATIO 0.84; ALKALINE PHOSPHATASE 54 IU/L (42-121); ANION GAP 12 (8-16); ASPARTATE AMINO TRANSFERASE 23 IU/L (15-46); BILIRUBIN,INDIRECT 0.6 mg/dl (0-1.1); BILIRUBIN,TOTAL 0.6 mg/dl (0.2-1.3); BLOOD UREA NITROGEN 20 mg/dl (7-20); CARBON DIOXIDE 35 mmol/L (21-31); CREATININE 0.85 mg/dl (0.61-1.24); INR 1.17; PARTIAL THROMBOPLASTIN TIME 30.3 Sec (25.0-35.0); PT RATIO 1.2; TOTAL PROTEIN 5.9 g/dl (6.1-8.1)
[2016-06-28 03:17] LABS: ALANINE AMINOTRANSFERASE 27 IU/L (13-69); CALCIUM 7.4 mg/dl (8.4-10.2); GLUCOSE 86 mg/dl (70-220)
--- NOTE | 2016-06-28 03:24 | RADRPT ---
PROCEDURE: XR Chest. CLINICAL INDICATION: Shortness of breath. TECHNIQUE: AP Portable chest. COMPARISON: 06/18/2016 FINDINGS: Moderate cardiomegaly. A left chest cardiac device and leads are unchanged. Moderate pulmonary vas cular congestion increased compared to the prior. Some mild opacities are noted within the left gre ater than right lung bases, also increased. The osseous structures are unremarkable. IMPRESSION: Pulmonary vascular congestion and basilar opacities likely due to effusions and atelectasis, increas ed compared to the prior exam. RPTAT: HIKT .Harpal Lambert MD, MD Date Time Electronically viewed and signed by .Harpal Lambert MD, MD on 06/28/2016 03:24 .T/
[2016-06-28 03:25] LABS: B-TYPE NATRIURETIC PEPTIDE 4980 PG/ML (0-450)
[2016-06-28 03:28] LABS: TROPONIN-I 0.091 ng/ml (0.00-0.12)
--- NOTE | 2016-06-28 03:45 | ERA ---
ER Documentation Chief Complaint Date/Time DATE: 06/28/16 TIME: 03:40 Chief Complaint fever, cough congestion, recent hospitalized for PNA, pacemaker implant HPI 80-year-old man brought in by EMS for recent increase in cough and fever. He was recently hospitalized pneumonia and is seemed initially he improved although symptoms returned about 2-3 days ago. He has a history of chronic obstructive pulmonary disease and states he needs nebulized treatment. He denies calf or leg swelling, no vomiting or diarrhea. HPI was supplemented by reviewing past medical history. Patient was transported here by EMS without further complications. ROS All systems reviewed and are negative except as per history of present illness. Medications Home Meds Active Scripts Methocarbamol* (Robaxin*) 750 Mg Tablet, 750 MG PO TID, #20 TAB Prov:JEM MORRIS DO 03/09/16 Reported Medications Albuterol Sulfate* (Proair HFA*) 8.5 Gm Hfa.aer.ad, 2 PUFF INH Q4H Y for WHEEZING AND SOB, #1 INHALER 05/23/16 Ondansetron Hcl* (Ondansetron Hcl*) 4 Mg Tablet, 4 MG PO Q6H Y for NAUSEA, TAB 05/23/16 Pantoprazole* (Pantoprazole*) 40 Mg Tablet.dr, 40 MG PO DAILY, TAB 05/23/16 Guaifenesin/Dextromethorphan (Mucinex Dm ER 1,200-60 mg Tab) 1 Each Tbmp.12hr, 1 EACH PO BID, TAB 05/23/16 Ferrous Sulfate* (Ferrous Sulfate*) 325 Mg Tabec, 325 MG PO BID, TAB 05/23/16 Guaifenesin-Dextromethorphan* (Robitussin* DM) 100MG/10MG/5ML Syrup, 10 ML PO Q4H Y for COUGH, ML 05/23/16 Oxycodone Hcl-Acetaminophen* (Oxycodone Hcl-Acetaminophen*) 10-325 Mg Tablet, 1 TAB PO Q6 Y for PAIN, TAB 12/25/15 Gabapentin* (Gabapentin*) 300 Mg Capsule, 300 MG PO TID, #90 CAP 12/25/15 Albuterol Sulfate* (Albuterol Sulfate* Neb) 0.083%-3 Ml Neb, 2.5 MG NEB BID Y for WHEEZING AND SOB, EA 04/11/15 Tiotropium [place]* (Spiriva*) 18 Mcg Cap.w.dev, 1 INH IH DAILY, EA 02/02/15 Furosemide* (Furosemide*) 40 Mg Tablet, 40 MG PO DAILY, TAB ONLY TO BE TAKEN WITH POTASSIUM WITH LEG SWELL 02/02/15 Hydrochlorothiazide* (Hydrochlorothiazide*) 25 Mg Tab, 25 MG PO DAILY, TAB 02/02/15 Valsartan* (Diovan*) 160 Mg Tablet, 160 MG PO DAILY, TAB 02/02/15 Amlodipine Besylate* (Norvasc*) 5 Mg Tablet, 5 MG PO DAILY, TAB 02/02/15 Clopidogrel Bisulfate* (Clopidogrel Bisulfate*) 75 Mg Tablet, 75 MG PO DAILY, TAB 11/04/14 Montelukast Sodium* (Montelukast Sodium*) 10 Mg Tablet, 10 MG PO HS, TAB 11/04/14 Turmeric Root Extract (TURMERIC) 500 Mg Capsule, 500 MG PO DAILY 09/06/14 Ubidecarenone (Coq-10) 100 Mg Capsule, 100 MG PO DAILY 09/06/14 Simvastatin (Simvastatin) 40 Mg Tablet, 40 MG PO HS, TAB 09/06/14 Salmeterol Xinaf-Fluticasone* (Advair*) 500/50 Diskus Inhaler, 1 INH INH BID, INH 09/06/14 [place]-3 Fatty Acids (Fish Oil Concentrate) 1 Cap Capsule, 1 CAP PO DAILY 09/06/14 Multivitamins* (Once Daily*) 1 Tab Tablet, 1 TAB PO DAILY, TAB 09/06/14 Fluticasone Propionate* (Flonase* Nasal) 50 Mcg/[place] - 16 Gm [place].susp, 1 SPRAY NASAL BID, SPRAY (TO EACH NOSTRIL) 09/06/14 Aspirin (Low Dose Aspirin) 81 Mg Tablet.dr, 81 MG PO DAILY 09/06/14 Alendronate Sodium* (Fosamax*) 70 Mg Tablet, 70 MG PO ON WEDNESDAY, TAB 09/06/14 Allergies Allergies: Coded Allergies: No Known Drug Allergies (Verified Allergy, Unknown, 05/26/16) PMhx/Soc Recent IA status post percutaneous transluminal coronary angioplasty with stent placement to the left circumflex coronary artery, hypertension, biventricular AICD placement recently, chronic obstructive pulmonary disease, congestive heart failure, cardiomyopathy, aortic valve replacement, atrial fibrillation History of Surgery: Yes (colostomy) Anesthesia Reaction: No Hx 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 Disorder: Yes (TIA 1997 (RESOLVED, NO DEFICIT)) Hx Respiratory Disorders: Yes (copd, PNA) Hx Cardiac Disorders: Yes (AORTIC VALVE REPLACEMENT 2013) Hx Psychiatric Problems: No Hx Miscellaneous Medical Probl: Yes (pacemaker implant) Hx Alcohol Use: Yes (1-2 BEER/WEEK. STOPPED 10YRS AGO) Hx Substance Use: No Hx Tobacco Use: No Smoking Status: Unknown if ever smoked FmHx Family History: No diabetes Physical Exam Vitals Vital Signs Date Time Temp Pulse Resp B/P Pulse Ox O2 Delivery O2 Flow Rate FiO2 06/28/16 02:42 101 20 100 Nasal Cannula 3.0 06/28/16 02:09 102.8 128 19 162/76 92 Physical Exam GENERAL: Well-developed, dyspneic, tachypnea, febrile HEENT: Dry mucous membranes, pink conjunctiva, no cervical spine tenderness or step-off deformities, no goiter, no jaundice or icterus, extraocular movements intact without pain. No submandibular induration, and no pharyngeal erythema NEURO: Alert and oriented 3, cranial nerves II through XII intact bilaterally, pupils equal round reactive to light, no focal deficits or facial asymmetry, sensation intact distally Strength 5/5 in upper and lower extremities bilaterally CARDIAC: Tachycardic and regular, no murmurs rubs or gallops LUNGS: Dense wheezing and crackles throughout, poor entry bilaterally, no stridor ABDOMEN: Soft nontender, no guarding, no rigidity, no rebound, no psoas sign no obturator sign. Normoactive bowel sounds SKIN: Warm and dry to touch, no abrasions, contusions, or hematomas, no lacerations, no ecchymosis, no target lesions, and without ulcers EXTREMITIES: No clubbing cyanosis or edema, calves are bilaterally symmetrical, no Homans sign, no popliteal cord sign. Distal pulses equal and bilateral PSYCH: Normal affect without agitation or irritability Result Diagram: 06/28/1625406/28/16254 Results 24 hrs Laboratory Tests Test 06/28/16 02:55 Activated Partial Thromboplast Time 30.3Sec Alanine Aminotransferase (ALT/SGPT) 27IU/L Albumin 2.7g/dl Albumin/Globulin Ratio 0.84 Alkaline Phosphatase 54IU/L Anion Gap 12 Aspartate Amino Transf (AST/SGOT) 23IU/L B-Type Natriuretic Peptide 4980PG/ML Basophils # 0.010^3/ul Basophils % 0.3% Blood Morphology Comment Blood Urea Nitrogen 20mg/dl Calcium Level 7.4mg/dl Carbon Dioxide Level 35mmol/L Chloride Level 105mmol/L Creatinine 0.85mg/dl Direct Bilirubin 0.00mg/dl Eosinophils # 0.410^3/ul Eosinophils % 3.0% Globulin 3.20g/dl Glucose Level 86mg/dl Hematocrit 28.6% Hemoglobin 9.4g/dl INR International Normalized Ratio 1.17 Indirect Bilirubin 0.6mg/dl Lactic Acid Level 1.1mmol/L Lipase < 10U/L Lymphocytes # 2.310^3/ul Lymphocytes % 18.7% Mean Corpuscular Hemoglobin 30.6pg Mean Corpuscular Hemoglobin Concent 33.0g/dl Mean Corpuscular Volume 92.9fl Mean Platelet Volume 7.8fl Monocytes # 0.110^3/ul Monocytes % 1.0% Neutrophils # 9.410^3/ul Neutrophils % 77.0% Nucleated Red Blood Cells # 0.010^3/ul Nucleated Red Blood Cells % 0.0/100WBC Platelet Count 48018^3/UL Potassium Level 3.5mmol/L Prothrombin Time 15.0Sec Prothrombin Time Ratio 1.2 Red Blood Count 3.0810^6/ul Red Cell Distribution Width 16.7% Sodium Level 148mmol/L Total Bilirubin 0.6mg/dl Total Protein 5.9g/dl Troponin I 0.091ng/ml White Blood Count 12.210^3/ul Current Medications Medications (Trade) Dose Ordered Sig/Gregg Route PRN Reason Start Time Stop Time Status Last Admin Dose Admin Sodium Chloride 2000 ml 2,000 ml BOLUS OVER 2 HOURS STAT IV* 06/28/16 02:12 06/28/16 02:18 DC 06/28/16 02:30 Cefepime HCl 50 ml @ 100 mls/hr ONCE ONCE IVPB 06/28/16 02:30 06/28/16 02:59 DC 06/28/16 03:42 Vancomycin HCl 250 ml @ 125 mls/hr ONCE IVPB 06/28/16 02:30 06/28/16 04:29 Piperacillin Sod/ Tazobactam Sod (Zosyn 3.375gm/ 100 ml (Pmx)) 100 ml @ 200 mls/hr ONCE ONCE IVPB 06/28/16 02:30 06/28/16 02:59 DC 06/28/16 02:56 Aspirin (Aspirin) 325 mg ONCE ONCE PO 06/28/16 02:30 06/28/16 02:31 DC 06/28/16 02:30 Ibuprofen (Motrin) 600 mg ONCE ONCE PO 06/28/16 02:30 06/28/16 02:31 DC 06/28/16 02:30 Albuterol (Proventil 0.5% (Neb)) 10 mg ONCE STAT INH 06/28/16 02:20 06/28/16 02:21 DC 06/28/16 02:42 Ipratropium [place] (Atrovent 0.02% (Neb)) 1 mg ONCE STAT INH 06/28/16 02:20 06/28/16 02:21 DC 06/28/16 02:40 Methylprednisolone Sodium Succinate (Solu-Medrol) 125 mg ONCE STAT IV 06/28/16 02:20 06/28/16 02:21 DC 06/28/16 02:31 Ondansetron HCl (Zofran Inj) 4 mg ONCE STAT IV 06/28/16 02:31 06/28/16 02:32 DC 06/28/16 02:31 Procedures/MDM IV line was established patient was placed on bench worker hollow handle rhythm strip revealed a wide-complex paced rhythm at 90 bpm. Patient was febrile. Blood and urine cultures have been ordered results are pending I will follow-up. For fever I administered ibuprofen 600 mg p.o. EKG performed, read by me revealed a paced rhythm at 91 bpm, right axis deviation and a left bundle branch block, no concerning ST elevations or depressions noted. One view chest x-ray performed, read by me there is cardiomegaly and an AICD placed on the left chest, prosthetic valve is noted on chest x-ray there is also bilateral pulmonary infiltrates and vascular congestion bilaterally, no pneumothorax, no end of the diaphragm. For suspected sepsis I administered 2 L normal saline intravenously although patient has signs and symptoms of heart failure so the total 30 mL's per KG was not administered. For COPD I administered albuterol 10 mg via nebulizer, ipratropium 1 mg via nebulizer, and methylprednisolone 125 mg IV. Patient also received aspirin 325 mg p.o. for cardioprotective measures. Patient received cefepime 1 g IV, vancomycin 1 g IV, and Zosyn 3.375 g IV. For nausea patient received Zofran 4 mg IV. CBC reveals a white count of 12, hematocrit is 29, electrolytes revealed dehydration with a BUN/creatinine of 20/0.9, liver function tests were normal, troponin was negative, BNP elevated over 4000. Patient's infectious symptoms have not stabilized and the patient is at risk of rapid decompensation. The patient will be admitted for careful hydration, antibiotic therapy, and infectious source control. Severe Sepsis Assessment: Infectious Source: Pneumonia Severe Sepsis Managment: Blood Cultures X 2 before broad spectrum antibiotics initiated within 3 hours of recognition. 30 ml/kg NS bolus Completed Initial Lactate: 1.1 Repeat Lactate not indicated as initial < 2.0 Critical Care: Time: 50 minutes, this was time separate from other procedures. Treatments/Evaluations: Emergent fluid management, while maintaining close respiratory support. Immediate broad spectrum antibiotic therapy. Simultaneous assessment for possible sources in order to direct therapy. Consideration for invasive and chemical support to prevent respiratory or cardiac collapse. Septic Shock Assessment (1 hour post 30 ml/kg fluid bolus): Hypotension (SBP < 90 or 40 mmHg drop, MAP < 65): No Lactic acid > 4.0 No Perfusion Reassessment for Septic Shock: Temp afebrile, Pulse 90, RR 20, BP 97/67 Heart Exam: Tachycardic Lung Exam: Positive dense crackles and wheezes Capillary Refill: Less than 2 second Peripheral Pulses: Radially present Skin: Warm and dry Hypotensive Treatment (not required for isolated lactic acid elevation): Comfort Care: No Central LIne: Not indicated at this time Vasopressor started: None I considered further perfusion assessment with CVP measurement, SCVO2, bedside ultrasound volume assessment, passive leg raise, trial of further fluid bolus. And preceded with IV fluid hydration, antibiotics, and bronchodilator therapy Accepting Care Team: Current data and ongoing care discussed. Time: Time of admission Primary Provider: Florencia Consulting: Cardiology Outstanding Data: none Departure Diagnosis: Primary Impression: Sepsis Qualified Code: A41.9 - Sepsis, due to unspecified organism Additional Impressions: Pneumonia Qualified Code: J18.9 - Pneumonia of both lower lobes due to infectious organism COPD (chronic obstructive pulmonary disease) Qualified Code: J44.1 - Chronic obstructive pulmonary disease with acute exacerbation CHF (congestive heart failure) Qualified Code: I50.21 - Acute systolic congestive heart failure Condition: Serious ROSETTE ALVARADO MD Jun 28, 2016 03:45
--- NOTE | 2016-06-28 04:05 | HP ---
Date/Time of Note Date/Time of Note DATE: 06/28/16 TIME: 03:56 Assessment/Plan VTE Prophylaxis VTE Prophylaxis Intervention: LMWH Assessment/Plan Assessment/Plan [facility] 1. 80yo man well-known to me from his hospitalization last month who presented this morning with 3 days of cough and fever (102.8 in ER). Portable chest x- ray shows bilateral basilar infiltrates and pulmonary vascular congestion. BNP 4980. Mild CHF. Normal lactic acid of 1.1 with borderline elevated WBC 12.2k/ ul. Elevated BP. * Start on Zosyn, vancomycin * Probiotics * Gentle diuresis with increased dose of Bumex (2mg daily) * Serial troponins * Duonebs * Solu-medrol q12h 60mg for now * PA/Lateral CXR tomorrow AM. 2. Cardiac. Admitted last month with non-ST elevation myocardial infarction manifested as generalized weakness and elevated troponin. * Continue metoprolol, Lipitor * Start Lovenox for DVT prophylaxis 3. Pulmonary: History of chronic obstructive pulmonary disease, probably contributing to his current feeling of dyspnea. * Solu-medrol * Continue Duoneb therapy 4. Hypernatremia (148) 5. Mild thrombocytopenia (122) with no frida bleeding 6. New hypothyroidism this morning * Start on levothyroxine 25mcg PO daily today 7. Prophylaxis with famotidine PO for GI; Lovenox for DVT prevention 8. Disposition: Anticipate return to [facility], possibly with IV antibiotics per PICC line. * Full-Code Jose Welch MD PhD [phone] HPI/ROS Admit Date/Time Admit Date/Time 28 Jun 2016, 0357h Hx of Present Illness DATE OF ADMISSION: 06/28/2016 CHIEF COMPLAINT: Cough, fever HISTORY OF PRESENT ILLNESS: Mr. Roach is an 80-year-old patient well-known to me from his last two hospitalizations here at [facility]. He presented late overnight to the emergency room at [facility] after he says he became suddenly short of breath in his room at the [facility], where he was recuperating from his most recent hospitalization. The facility notes indicated he had two days of cough and fever. He presented in May 2016 with weakness, and was diagnosed with NSTEMI. He had suffered a severe hematoma in the right leg the week before due to a fall at home, and demonstrated multiple ecchymoses that worsened during the hospitalization on Eliquis (for his atrial fibrillation). Coronary angiography led to stenting of the circumflex artery. Post procedure he had episodes of respiratory distress. He developed abnormal renal function, with Nephrology consultation, hydration and Mucomyst treatment, leading to resolving renal dysfunction. Post stent, the patient suffered aspiration pneumonia and CHF exacerbation, with respiratory distress and ICU care requiring BiPAP. He had episodes of atrial fibrillation with rapid ventricular rate requiring ultimately unsuccessful cardioversion. He was treated with amiodarone but ended up having episodes of bradycardia that culminated in a 30 second episode of asystole. After a prolonged period of treatment for leukocytosis and urinary tract infection, he underwent biventricular AICD pacer placement by Dr. Vick Luis. The Eliquis was discontinued early in the hospitalization to bleeding, and he was maintained on antiplatelet therapy due to the new stent. He was discharged to [facility] on 06/19/2016 mainly for physical therapy and monitoring, with plans to resume Eliquis once stable from a hematology point of view. PAST MEDICAL HISTORY: 1. Leukocytosis secondary to urinary tract infection, resolved. 2. Status post non-ST elevation myocardial infarction and percutaneous transluminal coronary angioplasty with 1 stent placed to circumflex. 3. Atrial fibrillation, atrial flutter with probably sick sinus syndrome, status post implantable cardioverter-defibrillator biventricular placement. 4. Chronic obstructive pulmonary disease, oxygen dependent. 5. Acute kidney injury on chronic kidney disease. 6. Status post accidental fall prior to admission with right lower extremity hematoma, improving. 7. Status post fall with rib fractures, stable. 8. Acute on chronic anemia. 9. Chronic back pain. 10. Hypertension. 11. Congestive heart failure, systolic dysfunction, ejection fraction of 30%. 12. Temporal arteritis. 13. Previous history of transient ischemic attack. 14. COPD 15. Hypertension 16. Hyperlipidemia. 17. Transcatheter aortic valve replacement ~15 months ago. MEDICATIONS: 1. Aspirin 81 mg p.o. daily. 2. Plavix 75 mg p.o. daily. 3. Ferrous sulfate 325 mg p.o. b.i.d. 4. Flonase 1 spray b.i.d. nasally. 5. Neurontin 300 mg p.o. t.i.d. 6. Singular 10 mg p.o. at bedtime. 7. Percocet 10/325 one tablet p.o. q.6 hours p.r.n. pain. 8. Advair 500/50 one puff inhaled b.i.d. 9. Tylenol 650 mg p.o. q.4 hours p.r.n. pain. 10. Fish oil 1000 mg daily. 11. Lipitor 80 mg p.o. daily. 12. Tramadol 50 mg p.o. q.6 hours p.r.n. pain. 13. Sliding scale insulin. 14. Prednisone 40 mg p.o. daily, to be tapered. 15. Colace 100 mg p.o. b.i.d. 16. Senna 1 tablet p.o. b.i.d. p.r.n. constipation. 17. Amiodarone 200 mg p.o. daily. 18. Metoprolol 50 mg p.o. b.i.d. 19. Zestril 5 mg p.o. b.i.d. 20. Bumex 1 mg p.o. daily. ALLERGIES: NO KNOWN DRUG ALLERGIES. SOCIAL HISTORY: The patient lives at home in [place] with his spouse and stepdaughter. He is independent of activities of daily living. He does occasionally use a cane for ambulation. Denies tobacco, alcohol, or illicit drug use. FAMILY HISTORY: Not directly relevant. His shelter partner is healthy. ROS No headache, visual change, chest pain, nausea, emesis, or loose stooling. Last bowel movement four days ago. PMH/Family/Social Past Surgical History Past Surgical Hx: no surgical history, other Social History Smoking Status: Unknown if ever smoked Exam/Review of Systems Vital Signs Vitals Vital Signs Date Time Temp Pulse Resp B/P Pulse Ox O2 Delivery O2 Flow Rate FiO2 06/28/16 02:42 101 20 100 Nasal Cannula 3.0 06/28/16 02:09 102.8 162/76 Exam Exam GENERAL: Tired-appearing older man in no acute distress on oxygen per nasal cannula. HEENT: PERRL. EOMI. Normocephalic, atraumatic without scleral icterus, perioral cyanosis. Mucous membranes are moist. NECK: Soft and supple without masses. No jugular venous distention or carotid bruits. CHEST: Clear to auscultation and percussion bilaterally. HEART: Regular rate and rhythm, S1-S2, no added sounds. ABDOMEN: Soft, nontender, nondistended without palpable hepatosplenomegaly. EXTREMITIES: 1-2+ pitting edema of his right leg, which was bandaged at the site of the previous hematoma. No clubbing, cyanosis, or edema. SKIN: Without rash. Hematoma as noted above. NEUROLOGIC: Alert, oriented, normal affect. Cranial nerves, motor and light- touch sensation intact. Labs Result Diagram: 06/28/165 06/28/16 0255 Medications Medications Current Medications Vancomycin HCl (Vancocin) 250 ml @ 125 mls/hr ONCE IVPB ; Start 06/28/16 at 02: 30; Stop 06/28/16 at 04:29 JOAQUIN WELCH M.D. Jun 28, 2016 04:04
[2016-06-28 04:13] LABS: ADD UMIC YES; URINE BILIRUBIN (Dip) NEGATIVE (NEGATIVE); URINE BLOOD (Dip) 1+ (NEGATIVE); URINE COLOR LT. YELLOW (YELLOW); URINE GLUCOSE (Dip) NEGATIVE (NEGATIVE); URINE KETONES (Dip) NEGATIVE (NEGATIVE); URINE LEUKOCYTE ESTERASE (Dip) NEGATIVE (NEGATIVE); URINE NITRITE (Dip) NEGATIVE (NEGATIVE); URINE TOTAL PROTEIN (Dip) 1+ (NEGATIVE); URINE UROBILINOGEN (Dip) 0.2 E.U./dL (0.1-1.0)
[2016-06-28 04:28] LABS: BACTERIA,URINE FEW; SQUAMOUS EPITHELIAL CELL,UR FEW; URINE RBCS 0-2 /HPF (0)
[2016-06-28] MEDS ORDERED: OXYCODONE/ACETAMINOPHEN (10/325) TAB PO PRN (04:30)
[2016-06-28] MEDS ORDERED: ONDANSETRON 4 MG TAB PO PRN (04:30)
[2016-06-28] MEDS ORDERED: VANCOMYCIN IV PER PHARMACY XX SCH (04:30)
[2016-06-28] MEDS ORDERED: ACETAMINOPHEN 325 MG TAB PO PRN (04:30)
[2016-06-28] MEDS ORDERED: DOCUSATE SODIUM 100 MG CAP PO PRN (04:30)
[2016-06-28] MEDS ORDERED: ZOLPIDEM 5 MG TAB PO PRN (04:30)
[2016-06-28] MEDS ORDERED: NACL 0.9% 3 ML SYG IV SCH (04:30)
[2016-06-28] MEDS: ALBUTEROL/IPRATROPIUM (NEB) 3 ML AMP HHN SCH ×5 (05:18→20:51)
[2016-06-28] MEDS ORDERED: DEXTROMETHORPHAN PO SCH (09:00)
[2016-06-28] MEDS ORDERED: GUAIFENESIN PO SCH (09:00)
[2016-06-28] MEDS ORDERED: OMEGA PO SCH (09:00)
[2016-06-28] MEDS ORDERED: [UNRECOGNIZED DRUG - OTHER] PO SCH (09:00)
[2016-06-28] MEDS: GABAPENTIN 300 MG CAP PO SCH ×3 (13:00→21:44)
[2016-06-28] MEDS: METHOCARBAMOL 750 MG TAB PO SCH ×3 (13:00→21:44)
[2016-06-28] MEDS: PIPER-TAZO 3.375 GM IV (PMX) 100 ML IVPB SCH ×3 (14:00→21:43)
[2016-06-28] MEDS: FLUTICASONE 0.05% 16 GM NAS SPRAY NASAL SCH ×2 (14:00→21:43)
[2016-06-28] MEDS: FAMOTIDINE 20 MG TAB PO SCH ×2 (14:18→21:44)
[2016-06-28] MEDS: LACTOBACILLUS CHEW TAB PO SCH ×2 (14:18→21:44)
[2016-06-28] MEDS: HYDROCHLOROTHIAZIDE 25 MG TAB PO SCH (14:19)
[2016-06-28] MEDS: FISH OIL 1,000 MG CAP PO SCH (14:20)
[2016-06-28] MEDS: VALSARTAN 160 MG TAB PO SCH (14:20)
[2016-06-28] MEDS: LEVOTHYROXINE 25 MCG TAB PO SCH (14:21)
[2016-06-28] MEDS: ASPIRIN (EC) 81 MG TAB PO SCH (14:21)
[2016-06-28] MEDS: MULTIVITAMINS THERAPEUTIC TAB PO SCH (14:21)
[2016-06-28] MEDS: FERROUS SULFATE (EC) 325 MG TAB PO SCH ×2 (14:22→21:44)
[2016-06-28] MEDS: CLOPIDOGREL 75 MG TAB PO SCH (14:22)
[2016-06-28] MEDS: AMLODIPINE 5 MG TAB PO SCH (14:23)
[2016-06-28] MEDS: METHYLPREDNISOLONE 125 MG INJ IV SCH ×2 (14:23→21:44)
[2016-06-28] MEDS: ENOXAPARIN 40 MG/0.4 ML SYG SC SCH (14:35)
[2016-06-28] MEDS: SALMETEROL/FLUTICASONE 500/50 INHA INH SCH ×2 (14:50→21:45)
[2016-06-28] MEDS: GUAIFENESIN/DM (SR) TAB PO SCH ×2 (14:51→21:44)
[2016-06-28] MEDS: BUMETANIDE 1 MG TAB PO SCH (14:51)
[2016-06-28] MEDS ORDERED: VANCOMYCIN 1.5 GM in SOD CHLORIDE 0.9% 250 ML IVPB SCH (16:00)
[2016-06-28] MEDS ORDERED: NON-FORMULARY/PATIENT OWN MED (Simvastatin 40 MG) PO SCH (21:00)
[2016-06-28] MEDS: ATORVASTATIN 20 MG TAB PO SCH (21:44)
[2016-06-28] MEDS: MONTELUKAST 10 MG TAB PO SCH (21:44)
[2016-06-28] MEDS: VANCOMYCIN 1 GM in NS 250 ML IVPB SCH (22:17)
[2016-06-28] MEDS ORDERED: BISACODYL 10 MG SUPP PR ONE (22:30)
[2016-06-29] VITALS (14 sets, daily range): BP systolic 98–160; BP diastolic 48–70; PULSE 61–82; RESP 17–20
[2016-06-29] MEDS: ALBUTEROL/IPRATROPIUM (NEB) 3 ML AMP HHN SCH ×6 (00:08→20:25)
[2016-06-29] MEDS: PIPER-TAZO 3.375 GM IV (PMX) 100 ML IVPB SCH ×3 (05:31→22:52)
[2016-06-29] MEDS: LEVOTHYROXINE 25 MCG TAB PO SCH (05:31)
[2016-06-29 06:11] LABS: HEMATOCRIT 24.9 % (42.0-52.0); HEMOGLOBIN 8.4 g/dl (14.0-18.0); LYMPHOCYTES # 0.9 10^3/ul (0.8-2.9); MEAN CORPUSCULAR HEMOGLOBIN 31.5 pg (29.0-33.0); MEAN CORPUSCULAR HGB CONC 33.8 g/dl (32.0-37.0); MEAN CORPUSCULAR VOLUME 93.4 fl (82.0-101.0); MONOCYTE # 0.2 10^3/ul (0.3-0.9); MONOCYTES % 1.8 % (0.0-11.0); NEUTROPHIL # 8.5 10^3/ul (1.6-7.5); NEUTROPHILS % 89.2 % (39.0-77.0); PLATELET COUNT 120 10^3/UL (140-440); RED BLOOD COUNT 2.67 10^6/ul (4.70-6.10); RED CELL DISTRIBUTION WIDTH 16.6 % (11.5-14.5); UNCORRECTED WBC 9.6 10^3/ul (4.8-10.8); WHITE BLOOD COUNT 9.6 10^3/ul (4.8-10.8)
[2016-06-29 06:20] LABS: CONDITION 1; LH ANALYZER COMMENTS 1
[2016-06-29 06:32] LABS: CREATININE 0.91 mg/dl (0.61-1.24)
[2016-06-29 06:33] LABS: CALCIUM 7.3 mg/dl (8.4-10.2)
[2016-06-29] MEDS: SALMETEROL/FLUTICASONE 500/50 INHA INH SCH ×2 (08:38→20:44)
[2016-06-29] MEDS: FLUTICASONE 0.05% 16 GM NAS SPRAY NASAL SCH ×2 (08:38→20:44)
[2016-06-29] MEDS: AMLODIPINE 5 MG TAB PO SCH (08:39)
[2016-06-29] MEDS: LACTOBACILLUS CHEW TAB PO SCH ×3 (08:39→20:43)
[2016-06-29] MEDS: METHOCARBAMOL 750 MG TAB PO SCH ×3 (08:39→20:43)
[2016-06-29] MEDS: VALSARTAN 160 MG TAB PO SCH (08:39)
[2016-06-29] MEDS: BUMETANIDE 1 MG TAB PO SCH (08:40)
[2016-06-29] MEDS: FAMOTIDINE 20 MG TAB PO SCH ×2 (08:41→20:42)
[2016-06-29] MEDS: MULTIVITAMINS THERAPEUTIC TAB PO SCH (08:41)
[2016-06-29] MEDS: GABAPENTIN 300 MG CAP PO SCH ×3 (08:41→20:43)
[2016-06-29] MEDS: METHYLPREDNISOLONE 125 MG INJ IV SCH ×2 (08:41→20:42)
[2016-06-29] MEDS: HYDROCHLOROTHIAZIDE 25 MG TAB PO SCH (08:41)
[2016-06-29] MEDS: CLOPIDOGREL 75 MG TAB PO SCH (08:41)
[2016-06-29] MEDS: GUAIFENESIN/DM (SR) TAB PO SCH ×2 (08:41→20:43)
[2016-06-29] MEDS: FISH OIL 1,000 MG CAP PO SCH (08:41)
[2016-06-29] MEDS: FERROUS SULFATE (EC) 325 MG TAB PO SCH ×2 (08:41→20:43)
[2016-06-29] MEDS: ASPIRIN (EC) 81 MG TAB PO SCH (08:51)
[2016-06-29] MEDS: ENOXAPARIN 40 MG/0.4 ML SYG SC SCH (08:51)
--- NOTE | 2016-06-29 12:32 | PN ---
Date/Time of Note Date/Time of Note DATE: 06/29/16 TIME: 12:19 Assessment/Plan VTE Prophylaxis VTE Prophylaxis Intervention: LMWH Lines/Catheters IV Catheter Type (from [facility]): Saline Lock Urinary Cath still in place: Yes Reason Cath still needed: other (indicate) Assessment/Plan Assessment/Plan 80 yo man : 1. HCAP likely, afebrile this AM after T max 102 and WBC trending Continue Zosyn, Vancomycin, Probiotics, Gentle diuresis with Bumex 2mg daily. CE negative, on Solu-medrol. PA/Lateral CXR pending. 2. CAD, ischemic cardiomyopathy and systolic dysfunction. Continue metoprolol, Lipitor and resuming ARB On Lovenox for DVT prophylaxis 3. Chronic obstructive pulmonary disease, chronic hypoxemia with possible HCAP now, Continue steroids to switch to Prednisone in AM. Continue Duoneb therapy 4. Hypernatremia: improving slowly, Na down to 145 5. Mild thrombocytopenia: platelets @ 120 and no acute bleeding. Monitor while on Lovenox. 6. ?Hypothyroidism based on TSH of 9 on admission in elderly gentleman while acutely ill, hold of levothyroxine and repeat TFTs as needed or in 4 to 6 weeks. 7. Urinary retention: d/c Linton catheter trial, <10K CFU lela in urine, no abx, just d/c Linton for now, may need to replace if still retaining Prophylaxis with famotidine PO for GI; Lovenox for DVT prevention Disposition: D/c Linton trial, PT eval, patient wants to go home at discharge, he does want to go to [facility] or SNF if possible Full-Code Subjective 24 Hr Interval Summary Free Text/Dictation Patient doing OK and stable this AM, Feels better, afebrile and WBC down On Solumedrol BID PT eval pending D/c Linton catheter trial Exam/Review of Systems Vital Signs Vitals Vital Signs Date Time Temp Pulse Resp B/P Pulse Ox O2 Delivery O2 Flow Rate FiO2 06/29/16 12:11 78 20 96 Nasal Cannula 2.0 06/29/16 11:27 Intake and Output 06/28/16 06/28/16 06/29/16 15:00 23:00 07:00 Intake Total 100 ml 708 ml 240 ml Output Total 1000 ml 2000 ml Balance 100 ml -292 ml -1760 ml Exam Constitutional: alert, frail, oriented Respiratory: diminished breath sounds (bases bilaterally ), normal air movement , other (no wheezes) Cardiovascular: other (V paced ) Gastrointestinal: non-tender, soft Genitourinary - Male: other (linton catheter in place ) Musculoskeletal: other (RLE with dressing on place and slowly healing old hematoma ) Extremities: normal pulses 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: TOWER HAND II-XII intact, nl mental status, nl speech (at baseline ), other (feels less weak ) Skin: ecchymosis (improving ) Results Result Diagram: 06/29/1616 06/29/16515 Results 24 hrs Laboratory Tests Test 06/29/16 05:16 Anion Gap 12 Basophils # 0.0 Basophils % 0.0 Blood Morphology Comment Blood Urea Nitrogen 25 H Calcium Level 7.3 L Carbon Dioxide Level 34 H Chloride Level 103 Creatinine 0.91 Eosinophils # 0.0 Eosinophils % 0.0 Glucose Level 181 Hematocrit 24.9 L Hemoglobin 8.4 L Lymphocytes # 0.9 Lymphocytes % 9.0 L Mean Corpuscular Hemoglobin 31.5 Mean Corpuscular Hemoglobin Concent 33.8 Mean Corpuscular Volume 93.4 Mean Platelet Volume 8.0 Monocytes # 0.2 L Monocytes % 1.8 Neutrophils # 8.5 H Neutrophils % 89.2 H Nucleated Red Blood Cells # 0.0 Nucleated Red Blood Cells % 0.0 Platelet Count 120 L Potassium Level 4.0 Red Blood Count 2.67 L Red Cell Distribution Width 16.6 H Sodium Level 145 H White Blood Count 9.6 # Medications Medications Current Medications Amlodipine Besylate (Norvasc) 5 mg DAILY PO Last administered on 06/29/16 08: 39; Admin Dose 5 MG; Start 06/28/16 at 09:00 Aspirin (Halfprin) 81 mg DAILY PO Last administered on 06/29/16 08:51; Admin Dose 81 MG; Start 06/28/16 at 09:00 Clopidogrel Bisulfate (plaVIX) 75 mg DAILY PO Last administered on 06/29/16 08 :41; Admin Dose 75 MG; Start 06/28/16 at 09:00 Ferrous Sulfate (Ferrous Sulfate (Ec)) 325 mg BID PO Last administered on 08:41; Admin Dose 325 MG; Start 06/28/16 at 09:00 Fluticasone Propionate (Flonase 0.05% Nasal) 1 spray BID NASAL Last administered on 06/29/16 08:38; Admin Dose 1 SPRAY; Start 06/28/16 at 09:00 Gabapentin (Neurontin) 300 mg TID PO Last administered on 06/29/16 08:41; Admin Dose 300 MG; Start 06/28/16 at 09:00 Hydrochlorothiazide (Hydrochlorothiazide) 25 mg DAILY PO Last administered on 08:41; Admin Dose 25 MG; Start 06/28/16 at 09:00 Methocarbamol (Robaxin) 750 mg TID PO Last administered on 06/29/16 08:39; Admin Dose 750 MG; Start 06/28/16 at 09:00 Montelukast Sodium (Singulair) 10 mg HS PO Last administered on 06/28/16 21:44 ; Admin Dose 10 MG; Start 06/28/16 at 21:00 Multivitamins Therapeutic (Theragran) 1 tab DAILY PO Last administered on 08:41; Admin Dose 1 TAB; Start 06/28/16 at 09:00 Ondansetron HCl (Zofran Tab) 4 mg Q6H PRN PO NAUSEA; Start 06/28/16 at 04:30 Oxycodone/ Acetaminophen (Endocet (10/ 325)) 1 tab Q6 PRN PO PAIN; Start at 04:30 Salmeterol Xinafoate/ Fluticasone (Advair 500/50 Diskus) 1 inh BID INH Last administered on 06/29/16 08:38; Admin Dose 1 INH; Start 06/28/16 at 09:00 Valsartan (Diovan) 160 mg DAILY PO Last administered on 06/29/16 08:39; Admin Dose 160 MG; Start 06/28/16 at 09:00 Methylprednisolone Sodium Succinate (Solu-Medrol) 60 mg Q12 IV Last administered on 06/29/16 08:41; Admin Dose 60 MG; Start 06/28/16 at 09:00 Acetaminophen (Tylenol Tab) 650 mg Q6H PRN PO PAIN LEVEL 1-3 OR FEVER; Start at 04:30 Zolpidem Tartrate (Ambien) 5 mg QHS PRN PO INSOMNIA; Start 06/28/16 at 04:30 Docusate Sodium (Colace) 100 mg Q12H PRN PO CONSTIPATION Last administered on 14:22; Admin Dose 100 MG; Start 06/28/16 at 04:30 Famotidine (Pepcid) 20 mg Q12 PO Last administered on 06/29/16 08:41; Admin Dose 20 MG; Start 06/28/16 at 09:00 Enoxaparin Sodium (Lovenox) 40 mg DAILY SC Last administered on 06/29/16 08:51 ; Admin Dose 40 MG; Start 06/28/16 at 09:00 Bumetanide 2 mg 2 mg DAILY PO Last administered on 06/29/16 08:40; Admin Dose 2 MG; Start 06/28/16 at 09:00 Piperacillin Sod/ Tazobactam Sod (Zosyn 3.375gm/ 100 ml (Pmx)) 100 ml @ 200 mls /hr Q8 IVPB Last administered on 06/29/16 05:31; Admin Dose 200 MLS/HR; Start 06/28/16 at 09:00 Guaifenesin/ Dextromethorphan (Mucinex Dm) 1 tab BID PO Last administered on 08:41; Admin Dose 1 TAB; Start 06/28/16 at 09:00 Fish Oil (Fish Oil) 1,000 mg DAILY PO Last administered on 06/29/16 08:41; Admin Dose 1,000 MG; Start 06/28/16 at 09:00 Atorvastatin Calcium (Lipitor) 20 mg DAILY@21 PO Last administered on 21:44; Admin Dose 20 MG; Start 06/28/16 at 21:00 Levothyroxine Sodium (Synthroid) 25 mcg DAILY@06 PO Last administered on 05:31; Admin Dose 25 MCG; Start 06/28/16 at 12:30 Lactobacillus Acidoph/ Bulgaricus 1 tab 1 tab TID PO Last administered on 08:39; Admin Dose 1 TAB; Start 06/28/16 at 13:00 Vancomycin HCl (Vancocin) 250 ml @ 125 mls/hr Q24H IVPB Last administered on 22:17; Admin Dose 125 MLS/HR; Start 06/28/16 at 22:00 RICHIE SWEET Jun 29, 2016 12:29
--- NOTE | 2016-06-29 14:35 | RADRPT ---
PROCEDURE: XR Chest. CLINICAL INDICATION: Shortness of breath. TECHNIQUE: AP Portable chest. COMPARISON: 06/28/2016 FINDINGS: Moderate cardiomegaly. A left chest cardiac device and leads are unchanged. Moderate pulmonary vas cular congestion decreased compared to the prior. Some mild opacities are noted within the left gre ater than right lung bases, also decreased. Vertebroplasty changes with associated compression defo rmities are noted at multiple levels within the thoracic spine. IMPRESSION: 1. Pulmonary vascular congestion and basilar opacities likely due to effusions and atelectasis, dec reased compared to the prior exam. 2. Aortic atherosclerosis. RPTAT: JJ .Hemanth Madera MD, Date Time Electronically viewed and signed by .Hemanth Madera MD, on 06/29/2016 14:35 .A/
[2016-06-29] MEDS: TAMSULOSIN (SR) 0.4 MG CAP PO SCH ×2 (17:52→20:43)
[2016-06-29] MEDS: ATORVASTATIN 20 MG TAB PO SCH (20:43)
[2016-06-29] MEDS: MONTELUKAST 10 MG TAB PO SCH (20:43)
--- NOTE | 2016-06-29 21:19 | CONS ---
Date/Time of Note Date/Time of Note DATE: 06/29/16 TIME: 11:12 Assessment/Plan Assessment/Plan Additional Assessment/Plan Dyspnea, cough and fevers Mild acute decompensated systolic congestive heart failure COPD exacerbation Paroxysmal atrial fibrillation/flutter Transient heart block status post pacemaker 06/16/2016 Cardiomyopathy ejection fraction 35% Aortic stenosis, status post transcatheter aortic valve replacement in January 2015. Anemia CAD with recent PCI -Patient with improvement in symptoms with antibiotics. Would continue maintenance diuretics, DC hydrochlorothiazide. Would adjust dosing of ARB to twice a day as well as decreasing the dose and attempts to prevent hypotension. Continue aspirin and Plavix given recent myocardial infarction and stent placement. Consultation Date/Type/Reason Admit Date/Time 28 Jun 2016, 0357h Type of Consultation: cv Reason for Consultation Shortness of breath Hx of Present Illness This is an 80-year-old male well-known to me from multiple admissions recently discharged earlier this month who returns back with shortness of breath, cough and fevers and chills. Symptoms going on for 1- 2 days. Denies chest pain, dizziness or lightheadedness. Patient was recently discharged from long-term facility. Since admission, shortness of breath has improved, denies any further subjective fevers or chills. He has been compliant with his medications. 12 point review of systems was performed with all pertinent positives and negatives mentioned above and all else is negative Past Medical History Systolic CHF Paroxysmal atrial fibrillation/flutter Transient heart block status post pacemaker 06/16/2016 Cardiomyopathy ejection fraction 35% Aortic stenosis, status post transcatheter aortic valve replacement in January 2015. Chronic obstructive pulmonary disease on home oxygen. COPD Past Surgical History TAVR PPM/ICD Past Surgical Hx: other Family History Significant Family History: no pertinent family hx Social History Smoking Status: Never smoker Exam/Review of Systems Vital Signs Vitals Vital Signs Date Time Temp Pulse Resp B/P Pulse Ox O2 Delivery O2 Flow Rate FiO2 06/29/16 20:41 69 06/29/16 20:27 18 99 Nasal Cannula 2.0 06/29/16 20:25 98.6 132/60 Intake and Output 06/28/16 06/28/16 06/29/16 15:00 23:00 07:00 Intake Total 100 ml 708 ml 240 ml Output Total 1000 ml 2000 ml Balance 100 ml -292 ml -1760 ml Exam No apparent distress Constitutional: alert, frail, oriented Head: normocephalic Neck: supple Respiratory: other (course breath sounds bilaterally with scattered rhonchi and mild end expiratory wheezing) Cardiovascular: other (S1 and S2 heard), regular rate and rhythm Gastrointestinal: bowel sounds, non-tender, soft Musculoskeletal: other (left upper chest wall pacemaker site with hematoma, improved from prior, no drainage) Extremities: edema (trace) Results Result Diagram: 06/29/16 0516 06/29/16 0516 Results 24 hrs Laboratory Tests Test 06/29/16 05:16 Anion Gap 12 Basophils # 0.0 Basophils % 0.0 Blood Morphology Comment Blood Urea Nitrogen 25 H Calcium Level 7.3 L Carbon Dioxide Level 34 H Chloride Level 103 Creatinine 0.91 Eosinophils # 0.0 Eosinophils % 0.0 Glucose Level 181 Hematocrit 24.9 L Hemoglobin 8.4 L Lymphocytes # 0.9 Lymphocytes % 9.0 L Mean Corpuscular Hemoglobin 31.5 Mean Corpuscular Hemoglobin Concent 33.8 Mean Corpuscular Volume 93.4 Mean Platelet Volume 8.0 Monocytes # 0.2 L Monocytes % 1.8 Neutrophils # 8.5 H Neutrophils % 89.2 H Nucleated Red Blood Cells # 0.0 Nucleated Red Blood Cells % 0.0 Platelet Count 120 L Potassium Level 4.0 Red Blood Count 2.67 L Red Cell Distribution Width 16.6 H Sodium Level 145 H White Blood Count 9.6 # Medications Medications Current Medications Aspirin (Halfprin) 81 mg DAILY PO Last administered on 06/29/16 08:51; Admin Dose 81 MG; Start 06/28/16 at 09:00 Clopidogrel Bisulfate (plaVIX) 75 mg DAILY PO Last administered on 06/29/16 08 :41; Admin Dose 75 MG; Start 06/28/16 at 09:00 Ferrous Sulfate (Ferrous Sulfate (Ec)) 325 mg BID PO Last administered on 20:43; Admin Dose 325 MG; Start 06/28/16 at 09:00 Fluticasone Propionate (Flonase 0.05% Nasal) 1 spray BID NASAL Last administered on 06/29/16 20:44; Admin Dose 1 SPRAY; Start 06/28/16 at 09:00 Gabapentin (Neurontin) 300 mg TID PO Last administered on 06/29/16 20:43; Admin Dose 300 MG; Start 06/28/16 at 09:00 Methocarbamol (Robaxin) 750 mg TID PO Last administered on 06/29/16 20:43; Admin Dose 750 MG; Start 06/28/16 at 09:00 Montelukast Sodium (Singulair) 10 mg HS PO Last administered on 06/29/16 20:43 ; Admin Dose 10 MG; Start 06/28/16 at 21:00 Multivitamins Therapeutic (Theragran) 1 tab DAILY PO Last administered on 08:41; Admin Dose 1 TAB; Start 06/28/16 at 09:00 Ondansetron HCl (Zofran Tab) 4 mg Q6H PRN PO NAUSEA; Start 06/28/16 at 04:30 Oxycodone/ Acetaminophen (Endocet (10/ 325)) 1 tab Q6 PRN PO PAIN; Start at 04:30 Salmeterol Xinafoate/ Fluticasone (Advair 500/50 Diskus) 1 inh BID INH Last administered on 06/29/16 20:44; Admin Dose 1 INH; Start 06/28/16 at 09:00 Methylprednisolone Sodium Succinate (Solu-Medrol) 60 mg Q12 IV Last administered on 06/29/16 20:42; Admin Dose 60 MG; Start 06/28/16 at 09:00 Acetaminophen (Tylenol Tab) 650 mg Q6H PRN PO PAIN LEVEL 1-3 OR FEVER; Start at 04:30 Zolpidem Tartrate (Ambien) 5 mg QHS PRN PO INSOMNIA; Start 06/28/16 at 04:30 Docusate Sodium (Colace) 100 mg Q12H PRN PO CONSTIPATION Last administered on 14:22; Admin Dose 100 MG; Start 06/28/16 at 04:30 Famotidine (Pepcid) 20 mg Q12 PO Last administered on 06/29/16 20:42; Admin Dose 20 MG; Start 06/28/16 at 09:00 Enoxaparin Sodium (Lovenox) 40 mg DAILY SC Last administered on 06/29/16 08:51 ; Admin Dose 40 MG; Start 06/28/16 at 09:00 Bumetanide 2 mg 2 mg DAILY PO Last administered on 06/29/16 08:40; Admin Dose 2 MG; Start 06/28/16 at 09:00 Piperacillin Sod/ Tazobactam Sod (Zosyn 3.375gm/ 100 ml (Pmx)) 100 ml @ 200 mls /hr Q8 IVPB Last administered on 06/29/16 14:42; Admin Dose 200 MLS/HR; Start 06/28/16 at 09:00 Guaifenesin/ Dextromethorphan (Mucinex Dm) 1 tab BID PO Last administered on 20:43; Admin Dose 1 TAB; Start 06/28/16 at 09:00 Fish Oil (Fish Oil) 1,000 mg DAILY PO Last administered on 06/29/16 08:41; Admin Dose 1,000 MG; Start 06/28/16 at 09:00 Atorvastatin Calcium (Lipitor) 20 mg DAILY@21 PO Last administered on 20:43; Admin Dose 20 MG; Start 06/28/16 at 21:00 Lactobacillus Acidoph/ Bulgaricus 1 tab 1 tab TID PO Last administered on 20:43; Admin Dose 1 TAB; Start 06/28/16 at 13:00 Vancomycin HCl (Vancocin) 250 ml @ 125 mls/hr Q24H IVPB Last administered on 22:17; Admin Dose 125 MLS/HR; Start 06/28/16 at 22:00 Valsartan (Diovan) 80 mg BID PO ; Start 06/30/16 at 09:00 Tamsulosin HCl (Flomax) 0.4 mg HS PO Last administered on 06/29/16 20:43; Admin Dose 0.4 MG; Start 06/29/16 at 18:00 Calos Peralta DO Jun 29, 2016 21:19
[2016-06-29] MEDS: VANCOMYCIN 1 GM in NS 250 ML IVPB SCH (22:14)
[2016-06-30] VITALS (11 sets, daily range): BP systolic 117–134; BP diastolic 56–61; PULSE 60–73; RESP 18–20
[2016-06-30] MEDS: ALBUTEROL/IPRATROPIUM (NEB) 3 ML AMP HHN SCH ×6 (00:07→20:27)
[2016-06-30] MEDS: PIPER-TAZO 3.375 GM IV (PMX) 100 ML IVPB SCH ×3 (05:27→22:14)
[2016-06-30 07:14] LABS: MAGNESIUM 1.5 mg/dl (1.7-2.5); PHOSPHORUS 3.3 mg/dl (2.5-4.9)
[2016-06-30 07:15] LABS: CREATININE 0.98 mg/dl (0.61-1.24)
[2016-06-30 07:16] LABS: CALCIUM 7.2 mg/dl (8.4-10.2)
[2016-06-30 07:21] LABS: POTASSIUM 2.9 mmol/L (3.5-5.1)
[2016-06-30 07:31] LABS: BASOPHILS % 0.3 % (0.0-2.0); EOSINOPHILS % 0.1 % (0.0-7.0); HEMATOCRIT 23.6 % (42.0-52.0); HEMOGLOBIN 8.1 g/dl (14.0-18.0); LYMPHOCYTES # 0.7 10^3/ul (0.8-2.9); LYMPHOCYTES % 7.8 % (15.0-51.0); MEAN CORPUSCULAR HGB CONC 34.3 g/dl (32.0-37.0); MEAN CORPUSCULAR VOLUME 93.1 fl (82.0-101.0); MONOCYTE # 0.2 10^3/ul (0.3-0.9); MONOCYTES % 2.6 % (0.0-11.0); NEUTROPHIL # 7.9 10^3/ul (1.6-7.5); NEUTROPHILS % 89.2 % (39.0-77.0); PLATELET COUNT 123 10^3/UL (140-440); RED BLOOD COUNT 2.53 10^6/ul (4.70-6.10); RED CELL DISTRIBUTION WIDTH 16.3 % (11.5-14.5); UNCORRECTED WBC 8.9 10^3/ul (4.8-10.8); WHITE BLOOD COUNT 8.9 10^3/ul (4.8-10.8)
[2016-06-30 07:47] LABS: CONDITION 1; LH ANALYZER COMMENTS 1
[2016-06-30] MEDS: SALMETEROL/FLUTICASONE 500/50 INHA INH SCH ×2 (08:07→20:45)
[2016-06-30] MEDS: FLUTICASONE 0.05% 16 GM NAS SPRAY NASAL SCH ×2 (08:08→20:45)
[2016-06-30] MEDS: FAMOTIDINE 20 MG TAB PO SCH ×2 (08:08→20:47)
[2016-06-30] MEDS: CLOPIDOGREL 75 MG TAB PO SCH (08:08)
[2016-06-30] MEDS: GUAIFENESIN/DM (SR) TAB PO SCH ×2 (08:08→20:47)
[2016-06-30] MEDS: BUMETANIDE 1 MG TAB PO SCH (08:08)
[2016-06-30] MEDS: ASPIRIN (EC) 81 MG TAB PO SCH (08:08)
[2016-06-30] MEDS: LACTOBACILLUS CHEW TAB PO SCH ×3 (08:08→20:47)
[2016-06-30] MEDS: METHOCARBAMOL 750 MG TAB PO SCH ×3 (08:08→20:47)
[2016-06-30] MEDS: VALSARTAN 80 MG TAB PO SCH ×2 (08:08→20:47)
[2016-06-30] MEDS: GABAPENTIN 300 MG CAP PO SCH ×3 (08:08→20:47)
[2016-06-30] MEDS: MULTIVITAMINS THERAPEUTIC TAB PO SCH (08:09)
[2016-06-30] MEDS: FISH OIL 1,000 MG CAP PO SCH (08:09)
[2016-06-30] MEDS: METHYLPREDNISOLONE 125 MG INJ IV SCH ×2 (08:09→20:45)
[2016-06-30] MEDS: FERROUS SULFATE (EC) 325 MG TAB PO SCH ×2 (08:09→20:48)
[2016-06-30] MEDS: ENOXAPARIN 40 MG/0.4 ML SYG SC SCH (08:19)
[2016-06-30] MEDS: POTASSIUM CHLORIDE (SR) 20 MEQ TAB PO SCH ×3 (08:32→16:10)
--- NOTE | 2016-06-30 12:58 | CONS ---
Date/Time of Note Date/Time of Note DATE: 06/30/16 TIME: 12:56 Assessment/Plan Assessment/Plan Additional Assessment/Plan Dyspnea, cough and fevers Mild acute decompensated systolic congestive heart failure COPD exacerbation Paroxysmal atrial fibrillation/flutter Heart block status post pacemaker 06/16/2016 Cardiomyopathy ejection fraction 35% Aortic stenosis, status post transcatheter aortic valve replacement in January 2015. Anemia CAD with recent PCI -Patient with mild improvement in shortness of breath. Would continue maintenance diuretics. Blood pressure trend remains stable. Patient complaining of urinary retention requiring repeat Arteaga insertion. He is on Flomax, I would start Proscar in the interim until primary care follow-up. Magnesium and potassium supplementation has already been ordered Consultation Date/Type/Reason Admit Date/Time Jun 28, 2016 at 03:56 Initial Consult Date Type of Consultation: cv 24 HR Interval Summary Free Text/Dictation Breathing is easier, still with cough, major complaint is urinary retention requiring repeat Arteaga insertion Exam/Review of Systems Vital Signs Vitals Vital Signs Date Time Temp Pulse Resp B/P Pulse Ox O2 Delivery O2 Flow Rate FiO2 06/30/16 12:11 69 06/30/16 11:00 98.0 19 134/61 93 06/30/16 09:27 Nasal Cannula 2.0 Intake and Output 06/29/16 06/29/16 06/30/16 15:00 23:00 07:00 Intake Total 940 ml 850 ml Output Total 800 ml 1100 ml Balance 140 ml -250 ml Exam No apparent distress Constitutional: alert, frail, oriented Head: normocephalic Neck: supple Respiratory: other (course breath sounds bilaterally with scattered rhonchi) Cardiovascular: other (S1-S2 heard), regular rate and rhythm Gastrointestinal: bowel sounds, non-tender, soft Extremities: edema (trace) Results Result Diagram: 06/30/16 0635 06/30/16 0635 Results 24 hrs Laboratory Tests Test 06/30/16 06:35 Anion Gap 12 Basophils # 0.0 Basophils % 0.3 Blood Morphology Comment Blood Urea Nitrogen 27 H Calcium Level 7.2 L Carbon Dioxide Level 35 H Chloride Level 97 Creatinine 0.98 Eosinophils # 0.0 Eosinophils % 0.1 Glucose Level 149 Hematocrit 23.6 L Hemoglobin 8.1 L Lymphocytes # 0.7 L Lymphocytes % 7.8 L Magnesium Level 1.5 L Mean Corpuscular Hemoglobin 32.0 Mean Corpuscular Hemoglobin Concent 34.3 Mean Corpuscular Volume 93.1 Mean Platelet Volume 8.0 Monocytes # 0.2 L Monocytes % 2.6 Neutrophils # 7.9 H Neutrophils % 89.2 H Nucleated Red Blood Cells # 0.0 Nucleated Red Blood Cells % 0.0 Phosphorus Level 3.3 Platelet Count 123 L Potassium Level 2.9 *L Red Blood Count 2.53 L Red Cell Distribution Width 16.3 H Sodium Level 141 White Blood Count 8.9 Medications Medications Current Medications Aspirin (Halfprin) 81 mg DAILY PO Last administered on 06/30/16 08:08; Admin Dose 81 MG; Start 06/28/16 at 09:00 Clopidogrel Bisulfate (plaVIX) 75 mg DAILY PO Last administered on 06/30/16 08 :08; Admin Dose 75 MG; Start 06/28/16 at 09:00 Ferrous Sulfate (Ferrous Sulfate (Ec)) 325 mg BID PO Last administered on 08:09; Admin Dose 325 MG; Start 06/28/16 at 09:00 Fluticasone Propionate (Flonase 0.05% Nasal) 1 spray BID NASAL Last administered on 06/30/16 08:08; Admin Dose 1 SPRAY; Start 06/28/16 at 09:00 Gabapentin (Neurontin) 300 mg TID PO Last administered on 06/30/16 12:05; Admin Dose 300 MG; Start 06/28/16 at 09:00 Methocarbamol (Robaxin) 750 mg TID PO Last administered on 06/30/16 12:05; Admin Dose 750 MG; Start 06/28/16 at 09:00 Montelukast Sodium (Singulair) 10 mg HS PO Last administered on 06/29/16 20:43 ; Admin Dose 10 MG; Start 06/28/16 at 21:00 Multivitamins Therapeutic (Theragran) 1 tab DAILY PO Last administered on 08:09; Admin Dose 1 TAB; Start 06/28/16 at 09:00 Ondansetron HCl (Zofran Tab) 4 mg Q6H PRN PO NAUSEA; Start 06/28/16 at 04:30 Oxycodone/ Acetaminophen (Endocet (10/ 325)) 1 tab Q6 PRN PO PAIN; Start at 04:30 Salmeterol Xinafoate/ Fluticasone (Advair 500/50 Diskus) 1 inh BID INH Last administered on 06/30/16 08:07; Admin Dose 1 INH; Start 06/28/16 at 09:00 Methylprednisolone Sodium Succinate (Solu-Medrol) 60 mg Q12 IV Last administered on 06/30/16 08:09; Admin Dose 60 MG; Start 06/28/16 at 09:00 Acetaminophen (Tylenol Tab) 650 mg Q6H PRN PO PAIN LEVEL 1-3 OR FEVER; Start at 04:30 Zolpidem Tartrate (Ambien) 5 mg QHS PRN PO INSOMNIA; Start 06/28/16 at 04:30 Docusate Sodium (Colace) 100 mg Q12H PRN PO CONSTIPATION Last administered on 14:22; Admin Dose 100 MG; Start 06/28/16 at 04:30 Famotidine (Pepcid) 20 mg Q12 PO Last administered on 06/30/16 08:08; Admin Dose 20 MG; Start 06/28/16 at 09:00 Enoxaparin Sodium (Lovenox) 40 mg DAILY SC Last administered on 06/30/16 08:19 ; Admin Dose 40 MG; Start 06/28/16 at 09:00 Bumetanide 2 mg 2 mg DAILY PO Last administered on 06/30/16 08:08; Admin Dose 2 MG; Start 06/28/16 at 09:00 Piperacillin Sod/ Tazobactam Sod (Zosyn 3.375gm/ 100 ml (Pmx)) 100 ml @ 200 mls /hr Q8 IVPB Last administered on 06/30/16 05:27; Admin Dose 200 MLS/HR; Start 06/28/16 at 09:00 Guaifenesin/ Dextromethorphan (Mucinex Dm) 1 tab BID PO Last administered on 08:08; Admin Dose 1 TAB; Start 06/28/16 at 09:00 Fish Oil (Fish Oil) 1,000 mg DAILY PO Last administered on 06/30/16 08:09; Admin Dose 1,000 MG; Start 06/28/16 at 09:00 Atorvastatin Calcium (Lipitor) 20 mg DAILY@21 PO Last administered on 20:43; Admin Dose 20 MG; Start 06/28/16 at 21:00 Lactobacillus Acidoph/ Bulgaricus 1 tab 1 tab TID PO Last administered on 12:05; Admin Dose 1 TAB; Start 06/28/16 at 13:00 Vancomycin HCl (Vancocin) 250 ml @ 125 mls/hr Q24H IVPB Last administered on 22:14; Admin Dose 125 MLS/HR; Start 06/28/16 at 22:00 Valsartan (Diovan) 80 mg BID PO Last administered on 06/30/16 08:08; Admin Dose 80 MG; Start 06/30/16 at 09:00 Tamsulosin HCl (Flomax) 0.4 mg HS PO Last administered on 06/29/16 20:43; Admin Dose 0.4 MG; Start 06/29/16 at 18:00 Potassium Chloride 40 meq 40 meq Q4H PO Last administered on 06/30/16 12:06; Admin Dose 40 MEQ; Start 06/30/16 at 08:00; Stop 06/30/16 at 16:01 Magnesium Sulfate/ Sodium Chloride (Magnesium Sulfate/NS) 106 ml @ 35.333 mls/ hr ONCE ONCE IVPB ; Start 06/30/16 at 13:30; Stop 06/30/16 at 16:29 Calos Peralta DO Jun 30, 2016 12:58
[2016-06-30] MEDS ORDERED: MAGNESIUM SULFATE 3 GM in SOD CHLORIDE 0.9% 100 ML IVPB ONE (13:30)
[2016-06-30] MEDS: FINASTERIDE 5 MG TAB PO SCH (13:48)
--- NOTE | 2016-06-30 15:48 | PN ---
Date/Time of Note Date/Time of Note DATE: 06/30/16 TIME: 15:29 Assessment/Plan VTE Prophylaxis VTE Prophylaxis Intervention: LMWH Lines/Catheters IV Catheter Type (from Nrs): Saline Lock Urinary Cath still in place: Yes Reason Cath still needed: urinary retention Assessment/Plan Assessment/Plan 80 yo man : 1. HCAP likely, afebrile this AM after T max 102 and WBC trending Continue Zosyn, Vancomycin, Probiotics, Gentle diuresis with Bumex 2mg daily. CE negative, on Solu-medrol. Change to prednisone starting tomorrow 2. CAD, ischemic cardiomyopathy and systolic dysfunction. Continue metoprolol, Lipitor and resuming ARB On Lovenox for DVT prophylaxis 3. Chronic obstructive pulmonary disease, chronic hypoxemia with possible HCAP now, Continue steroids to switch to Prednisone in AM. Continue Duoneb therapy 4. Hypernatremia: improving slowly, Na down to 145 5. Mild thrombocytopenia: platelets @ 123 and no acute bleeding. Monitor while on Lovenox. 6. ?Hypothyroidism based on TSH of 9 on admission in elderly gentleman while acutely ill, hold of levothyroxine and repeat TFTs as needed or in 4 to 6 weeks. 7. Urinary retention: d/c Linton catheter trial, <10K CFU lela in urine, no abx, Linton needed to be replaced overnight and will need to go home with it likely. Flomax started yesterday, Proscar added today and f/u with Urology as outpatient 8. Hypokalemia/Hypomagnesemia: replete and recheck this evening for further replacement if needed. Prophylaxis with famotidine PO for GI; Lovenox for DVT prevention Disposition: PT eval, patient wants to go home with Home Health PT and RN at discharge, he does want to go to [facility] or SNF if possible Full-Code Subjective 24 Hr Interval Summary Free Text/Dictation Patient doing OK and remains stable PT eval Linton catheter had to be put back in due to Urinary retention D/c plan home with HH in 1 to 2 days hopefully Exam/Review of Systems Vital Signs Vitals Vital Signs Date Time Temp Pulse Resp B/P Pulse Ox O2 Delivery O2 Flow Rate FiO2 06/30/16 15:00 97.8 72 19 117/57 95 06/30/16 13:01 Nasal Cannula 2.0 Intake and Output 06/29/16 06/29/16 06/30/16 15:00 23:00 07:00 Intake Total 940 ml 850 ml Output Total 800 ml 1100 ml Balance 140 ml -250 ml Exam Constitutional: alert, frail, oriented Respiratory: clear to auscultation, normal air movement Cardiovascular: nl pulses, regular rate and rhythm Gastrointestinal: non-tender, soft Genitourinary - Male: other (linton catheter in place for urinary retention) Musculoskeletal: other (Right lower ext hematoma improving ) Extremities: normal pulses, other (no edema, clubbing or cyanosis ) 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: [employer]IP[employer] II-XII intact, nl mental status, nl speech, other ( generalised weakness ) Results Result Diagram: 06/30/16 0635 06/30/16 0635 Results 24 hrs Laboratory Tests Test 06/30/16 06:35 Anion Gap 12 Basophils # 0.0 Basophils % 0.3 Blood Morphology Comment Blood Urea Nitrogen 27 H Calcium Level 7.2 L Carbon Dioxide Level 35 H Chloride Level 97 Creatinine 0.98 Eosinophils # 0.0 Eosinophils % 0.1 Glucose Level 149 Hematocrit 23.6 L Hemoglobin 8.1 L Lymphocytes # 0.7 L Lymphocytes % 7.8 L Magnesium Level 1.5 L Mean Corpuscular Hemoglobin 32.0 Mean Corpuscular Hemoglobin Concent 34.3 Mean Corpuscular Volume 93.1 Mean Platelet Volume 8.0 Monocytes # 0.2 L Monocytes % 2.6 Neutrophils # 7.9 H Neutrophils % 89.2 H Nucleated Red Blood Cells # 0.0 Nucleated Red Blood Cells % 0.0 Phosphorus Level 3.3 Platelet Count 123 L Potassium Level 2.9 *L Red Blood Count 2.53 L Red Cell Distribution Width 16.3 H Sodium Level 141 White Blood Count 8.9 Medications Medications Current Medications Aspirin (Halfprin) 81 mg DAILY PO Last administered on 06/30/16 08:08; Admin Dose 81 MG; Start 06/28/16 at 09:00 Clopidogrel Bisulfate (plaVIX) 75 mg DAILY PO Last administered on 06/30/16 08 :08; Admin Dose 75 MG; Start 06/28/16 at 09:00 Ferrous Sulfate (Ferrous Sulfate (Ec)) 325 mg BID PO Last administered on 08:09; Admin Dose 325 MG; Start 06/28/16 at 09:00 Fluticasone Propionate (Flonase 0.05% Nasal) 1 spray BID NASAL Last administered on 06/30/16 08:08; Admin Dose 1 SPRAY; Start 06/28/16 at 09:00 Gabapentin (Neurontin) 300 mg TID PO Last administered on 06/30/16 12:05; Admin Dose 300 MG; Start 06/28/16 at 09:00 Methocarbamol (Robaxin) 750 mg TID PO Last administered on 06/30/16 12:05; Admin Dose 750 MG; Start 06/28/16 at 09:00 Montelukast Sodium (Singulair) 10 mg HS PO Last administered on 06/29/16 20:43 ; Admin Dose 10 MG; Start 06/28/16 at 21:00 Multivitamins Therapeutic (Theragran) 1 tab DAILY PO Last administered on 08:09; Admin Dose 1 TAB; Start 06/28/16 at 09:00 Ondansetron HCl (Zofran Tab) 4 mg Q6H PRN PO NAUSEA; Start 06/28/16 at 04:30 Oxycodone/ Acetaminophen (Endocet (10/ 325)) 1 tab Q6 PRN PO PAIN; Start at 04:30 Salmeterol Xinafoate/ Fluticasone (Advair 500/50 Diskus) 1 inh BID INH Last administered on 06/30/16 08:07; Admin Dose 1 INH; Start 06/28/16 at 09:00 Methylprednisolone Sodium Succinate (Solu-Medrol) 60 mg Q12 IV Last administered on 06/30/16 08:09; Admin Dose 60 MG; Start 06/28/16 at 09:00 Acetaminophen (Tylenol Tab) 650 mg Q6H PRN PO PAIN LEVEL 1-3 OR FEVER; Start at 04:30 Zolpidem Tartrate (Ambien) 5 mg QHS PRN PO INSOMNIA; Start 06/28/16 at 04:30 Docusate Sodium (Colace) 100 mg Q12H PRN PO CONSTIPATION Last administered on 14:22; Admin Dose 100 MG; Start 06/28/16 at 04:30 Famotidine (Pepcid) 20 mg Q12 PO Last administered on 06/30/16 08:08; Admin Dose 20 MG; Start 06/28/16 at 09:00 Enoxaparin Sodium (Lovenox) 40 mg DAILY SC Last administered on 06/30/16 08:19 ; Admin Dose 40 MG; Start 06/28/16 at 09:00 Bumetanide 2 mg 2 mg DAILY PO Last administered on 06/30/16 08:08; Admin Dose 2 MG; Start 06/28/16 at 09:00 Piperacillin Sod/ Tazobactam Sod (Zosyn 3.375gm/ 100 ml (Pmx)) 100 ml @ 200 mls /hr Q8 IVPB Last administered on 06/30/16 13:02; Admin Dose 200 MLS/HR; Start 06/28/16 at 09:00 Guaifenesin/ Dextromethorphan (Mucinex Dm) 1 tab BID PO Last administered on 08:08; Admin Dose 1 TAB; Start 06/28/16 at 09:00 Fish Oil (Fish Oil) 1,000 mg DAILY PO Last administered on 06/30/16 08:09; Admin Dose 1,000 MG; Start 06/28/16 at 09:00 Atorvastatin Calcium (Lipitor) 20 mg DAILY@21 PO Last administered on 20:43; Admin Dose 20 MG; Start 06/28/16 at 21:00 Lactobacillus Acidoph/ Bulgaricus 1 tab 1 tab TID PO Last administered on 12:05; Admin Dose 1 TAB; Start 06/28/16 at 13:00 Vancomycin HCl (Vancocin) 250 ml @ 125 mls/hr Q24H IVPB Last administered on 22:14; Admin Dose 125 MLS/HR; Start 06/28/16 at 22:00 Valsartan (Diovan) 80 mg BID PO Last administered on 06/30/16 08:08; Admin Dose 80 MG; Start 06/30/16 at 09:00 Tamsulosin HCl (Flomax) 0.4 mg HS PO Last administered on 06/29/16 20:43; Admin Dose 0.4 MG; Start 06/29/16 at 18:00 Potassium Chloride 40 meq 40 meq Q4H PO Last administered on 06/30/16 12:06; Admin Dose 40 MEQ; Start 06/30/16 at 08:00; Stop 06/30/16 at 16:01 Magnesium Sulfate/ Sodium Chloride (Magnesium Sulfate/NS) 106 ml @ 35.333 mls/ hr ONCE ONCE IVPB Last administered on 06/30/16 13:48; Admin Dose 35.333 MLS/ HR; Start 06/30/16 at 13:30; Stop 06/30/16 at 16:29 Finasteride (Proscar) 5 mg DAILY PO Last administered on 06/30/16 13:48; Admin Dose 5 MG; Start 06/30/16 at 13:00 Procedures Procedures PROCEDURE: XR Chest. CLINICAL INDICATION: Shortness of breath. TECHNIQUE: AP Portable chest. COMPARISON: 06/28/2016 FINDINGS: Moderate cardiomegaly. A left chest cardiac device and leads are unchanged. Moderate pulmonary vascular congestion decreased compared to the prior. Some mild opacities are noted within the left greater than right lung bases, also decreased. Vertebroplasty changes with associated compression deformities are noted at multiple levels within the thoracic spine. IMPRESSION: 1. Pulmonary vascular congestion and basilar opacities likely due to effusions and atelectasis, decreased compared to the prior exam. 2. Aortic atherosclerosis. RPTAT: JJ .Hemanth Madera MD, MD Date Time Electronically viewed and signed by .Hemanth Madera MD, MD on 06/29/2016 14:35 RICHIE SWEET Jun 30, 2016 15:39
[2016-06-30 16:32] LABS: POTASSIUM 3.4 mmol/L (3.5-5.1)
[2016-06-30 16:34] LABS: CREATININE 1.16 mg/dl (0.61-1.24)
[2016-06-30 16:35] LABS: CALCIUM 7.5 mg/dl (8.4-10.2)
[2016-06-30] MEDS: ATORVASTATIN 20 MG TAB PO SCH (20:47)
[2016-06-30] MEDS: MONTELUKAST 10 MG TAB PO SCH (20:47)
[2016-06-30] MEDS: TAMSULOSIN (SR) 0.4 MG CAP PO SCH (20:48)
[2016-06-30] MEDS: VANCOMYCIN 1 GM in NS 250 ML IVPB SCH (22:14)
[2016-07-01] VITALS (12 sets, daily range): BP systolic 131–156; BP diastolic 59–73; PULSE 61–82; RESP 18–20
[2016-07-01] MEDS: ALBUTEROL/IPRATROPIUM (NEB) 3 ML AMP HHN SCH ×6 (00:40→21:46)
[2016-07-01] MEDS: PIPER-TAZO 3.375 GM IV (PMX) 100 ML IVPB SCH (06:03)
[2016-07-01 07:15] LABS: BASOPHILS % 0.2 % (0.0-2.0); HEMOGLOBIN 8.6 g/dl (14.0-18.0); LYMPHOCYTES # 0.5 10^3/ul (0.8-2.9); LYMPHOCYTES % 6.8 % (15.0-51.0); MEAN CORPUSCULAR HEMOGLOBIN 30.9 pg (29.0-33.0); MEAN CORPUSCULAR HGB CONC 33.2 g/dl (32.0-37.0); MEAN CORPUSCULAR VOLUME 93.2 fl (82.0-101.0); MEAN PLATELET VOLUME 7.9 fl (7.4-10.4); MONOCYTE # 0.3 10^3/ul (0.3-0.9); MONOCYTES % 4.6 % (0.0-11.0); NEUTROPHIL # 6.6 10^3/ul (1.6-7.5); NEUTROPHILS % 88.4 % (39.0-77.0); PLATELET COUNT 134 10^3/UL (140-440); RED BLOOD COUNT 2.79 10^6/ul (4.70-6.10); RED CELL DISTRIBUTION WIDTH 16.7 % (11.5-14.5); UNCORRECTED WBC 7.4 10^3/ul (4.8-10.8); WHITE BLOOD COUNT 7.4 10^3/ul (4.8-10.8)
[2016-07-01 07:24] LABS: CONDITION 1; LH ANALYZER COMMENTS 1
[2016-07-01 07:29] LABS: PHOSPHORUS 2.3 mg/dl (2.5-4.9)
[2016-07-01 07:30] LABS: MAGNESIUM 2.1 mg/dl (1.7-2.5)
[2016-07-01 07:30] LABS: CALCIUM 7.5 mg/dl (8.4-10.2)
[2016-07-01] MEDS: FLUTICASONE 0.05% 16 GM NAS SPRAY NASAL SCH ×2 (09:00→21:52)
[2016-07-01] MEDS: ENOXAPARIN 40 MG/0.4 ML SYG SC SCH (09:00)
[2016-07-01] MEDS: FISH OIL 1,000 MG CAP PO SCH (10:03)
[2016-07-01] MEDS: LACTOBACILLUS CHEW TAB PO SCH ×3 (10:03→21:46)
[2016-07-01] MEDS: GUAIFENESIN/DM (SR) TAB PO SCH ×2 (10:03→21:44)
[2016-07-01] MEDS: BUMETANIDE 1 MG TAB PO SCH (10:03)
[2016-07-01] MEDS: MULTIVITAMINS THERAPEUTIC TAB PO SCH (10:03)
[2016-07-01] MEDS: FAMOTIDINE 20 MG TAB PO SCH ×2 (10:04→21:44)
[2016-07-01] MEDS: VALSARTAN 80 MG TAB PO SCH ×2 (10:04→21:44)
[2016-07-01] MEDS: FINASTERIDE 5 MG TAB PO SCH (10:04)
[2016-07-01] MEDS: GABAPENTIN 300 MG CAP PO SCH ×3 (10:04→21:44)
[2016-07-01] MEDS: METHOCARBAMOL 750 MG TAB PO SCH ×3 (10:04→21:44)
[2016-07-01] MEDS: ASPIRIN (EC) 81 MG TAB PO SCH (10:04)
[2016-07-01] MEDS: METHYLPREDNISOLONE 125 MG INJ IV SCH (10:05)
[2016-07-01] MEDS: CLOPIDOGREL 75 MG TAB PO SCH (10:05)
[2016-07-01] MEDS: FERROUS SULFATE (EC) 325 MG TAB PO SCH ×2 (10:05→21:46)
[2016-07-01] MEDS: SALMETEROL/FLUTICASONE 500/50 INHA INH SCH ×2 (10:05→21:52)
--- NOTE | 2016-07-01 12:35 | PN ---
Date/Time of Note Date/Time of Note DATE: 07/01/16 TIME: 12:22 Assessment/Plan VTE Prophylaxis VTE Prophylaxis Intervention: LMWH ( ) Lines/Catheters [facility] Saline Lock Urinary Cath still in place: Yes Reason Cath still needed: urinary retention Assessment/Plan Assessment/Plan 80 yo man : 1. HCAP likely, afebrile since admission now after T max 102 on admission WBC wnl Continue Zosyn, Vancomycin, Probiotics, Gentle diuresis with Bumex 2mg daily. CE negative, change to Prednisone 40 mg po daily 2. CAD, ischemic cardiomyopathy and systolic dysfunction. Continue metoprolol, Lipitor and back on ARB On Lovenox for DVT prophylaxis 3. Chronic obstructive pulmonary disease, chronic hypoxemia with possible HCAP now, Continue steroids to switch to Prednisone in AM. Continue Duoneb therapy 4. Hypernatremia: resolved. 5. Mild thrombocytopenia: stable platelets . 6. ? Hypothyroidism based on TSH of 9:on admission in elderly gentleman while acutely ill, hold of levothyroxine and repeat TFTs as needed or in 2 to 3 weeks. 7. Urinary retention: d/c Arteaga catheter trial, <10K CFU lela in urine, no abx, Arteaga needed to be replaced and to go home with it. On Flomax and Proscar, f/u with Urology as outpatient 8. Hypokalemia/Hypomagnesemia: repleted, further replacement if needed. Prophylaxis with famotidine PO for GI; Lovenox for DVT prevention Disposition: PT eval, patient wants to go home with Home Health PT and RN at discharge, he does want to go to [facility] or any SNF Full-Code Subjective 24 Hr Interval Summary Free Text/Dictation Patient doing ok Remains stable PT eval today and awaiting evaluation On IV abx Exam/Review of Systems Vital Signs Vitals Vital Signs Date Time Temp Pulse Resp B/P Pulse Ox O2 Delivery O2 Flow Rate FiO2 07/01/16 09:29 80 20 95 Nasal Cannula 2.0 28 07/01/16 08:02 98.0 136/59 Intake and Output 06/30/16 06/30/16 07/01/16 15:00 23:00 07:00 Intake Total 100 ml 1606 ml 850 ml Output Total 2000 ml 1000 ml Balance 100 ml -394 ml -150 ml Exam Constitutional: alert, frail, oriented Respiratory: diminished breath sounds (bases bilaterally ), normal air movement Cardiovascular: other (paced and underlying SR ) Gastrointestinal: non-tender, soft Musculoskeletal: other (RLE with dressing c/d/i ) Extremities: normal pulses, other (no edema, clubbing or cyanosis ) 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: FAMILY PRACTICE MD II-XII intact, nl mental status, nl speech, other (improving weakness ) Results Result Diagram: 07/01/16 0640 07/01/16 0640 Results 24 hrs Laboratory Tests Test 06/30/16 16:10 07/01/16 06:40 07/01/16 06:45 Anion Gap 12 9 Blood Urea Nitrogen 27 H 29 H Calcium Level 7.5 L 7.5 L Carbon Dioxide Level 37 H 39 H Chloride Level 95 L 97 Creatinine 1.16 1.00 Glucose Level 205 183 Potassium Level 3.4 L 4.0 Sodium Level 141 141 Basophils # 0.0 Basophils % 0.2 Blood Morphology Comment Eosinophils # 0.0 Eosinophils % 0.0 Hematocrit 26.0 L Hemoglobin 8.6 L Lymphocytes # 0.5 L Lymphocytes % 6.8 L Mean Corpuscular Hemoglobin 30.9 Mean Corpuscular Hemoglobin Concent 33.2 Mean Corpuscular Volume 93.2 Mean Platelet Volume 7.9 Monocytes # 0.3 Monocytes % 4.6 Neutrophils # 6.6 Neutrophils % 88.4 H Nucleated Red Blood Cells # 0.0 Nucleated Red Blood Cells % 0.0 Platelet Count 134 L Red Blood Count 2.79 L Red Cell Distribution Width 16.7 H White Blood Count 7.4 Magnesium Level 2.1 Phosphorus Level 2.3 #L Medications Medications Current Medications Aspirin (Halfprin) 81 mg DAILY PO Last administered on 07/01/16 10:04; Admin Dose 81 MG; Start 06/28/16 at 09:00 Clopidogrel Bisulfate (plaVIX) 75 mg DAILY PO Last administered on 07/01/16 10 :05; Admin Dose 75 MG; Start 06/28/16 at 09:00 Ferrous Sulfate (Ferrous Sulfate (Ec)) 325 mg BID PO Last administered on 10:05; Admin Dose 325 MG; Start 06/28/16 at 09:00 Fluticasone Propionate (Flonase 0.05% Nasal) 1 spray BID NASAL Last administered on 07/01/16 09:00; Admin Dose 1 SPRAY; Start 06/28/16 at 09:00 Gabapentin (Neurontin) 300 mg TID PO Last administered on 07/01/16 10:04; Admin Dose 300 MG; Start 06/28/16 at 09:00 Methocarbamol (Robaxin) 750 mg TID PO Last administered on 07/01/16 10:04; Admin Dose 750 MG; Start 06/28/16 at 09:00 Montelukast Sodium (Singulair) 10 mg HS PO Last administered on 06/30/16 20:47 ; Admin Dose 10 MG; Start 06/28/16 at 21:00 Multivitamins Therapeutic (Theragran) 1 tab DAILY PO Last administered on 10:03; Admin Dose 1 TAB; Start 06/28/16 at 09:00 Ondansetron HCl (Zofran Tab) 4 mg Q6H PRN PO NAUSEA; Start 06/28/16 at 04:30 Oxycodone/ Acetaminophen (Endocet (10/ 325)) 1 tab Q6 PRN PO PAIN; Start at 04:30 Salmeterol Xinafoate/ Fluticasone (Advair 500/50 Diskus) 1 inh BID INH Last administered on 07/01/16 10:05; Admin Dose 1 INH; Start 06/28/16 at 09:00 Acetaminophen (Tylenol Tab) 650 mg Q6H PRN PO PAIN LEVEL 1-3 OR FEVER; Start at 04:30 Zolpidem Tartrate (Ambien) 5 mg QHS PRN PO INSOMNIA; Start 06/28/16 at 04:30 Docusate Sodium (Colace) 100 mg Q12H PRN PO CONSTIPATION Last administered on 14:22; Admin Dose 100 MG; Start 06/28/16 at 04:30 Famotidine (Pepcid) 20 mg Q12 PO Last administered on 07/01/16 10:04; Admin Dose 20 MG; Start 06/28/16 at 09:00 Enoxaparin Sodium (Lovenox) 40 mg DAILY SC Last administered on 07/01/16 09:00 ; Admin Dose 40 MG; Start 06/28/16 at 09:00 Bumetanide 2 mg 2 mg DAILY PO Last administered on 07/01/16 10:03; Admin Dose 2 MG; Start 06/28/16 at 09:00 Piperacillin Sod/ Tazobactam Sod (Zosyn 3.375gm/ 100 ml (Pmx)) 100 ml @ 200 mls /hr Q8 IVPB Last administered on 07/01/16 06:03; Admin Dose 200 MLS/HR; Start 06/28/16 at 09:00 Guaifenesin/ Dextromethorphan (Mucinex Dm) 1 tab BID PO Last administered on 10:03; Admin Dose 1 TAB; Start 06/28/16 at 09:00 Fish Oil (Fish Oil) 1,000 mg DAILY PO Last administered on 07/01/16 10:03; Admin Dose 1,000 MG; Start 06/28/16 at 09:00 Atorvastatin Calcium (Lipitor) 20 mg DAILY@21 PO Last administered on 20:47; Admin Dose 20 MG; Start 06/28/16 at 21:00 Lactobacillus Acidoph/ Bulgaricus 1 tab 1 tab TID PO Last administered on 10:03; Admin Dose 1 TAB; Start 06/28/16 at 13:00 Vancomycin HCl (Vancocin) 250 ml @ 125 mls/hr Q24H IVPB Last administered on 22:14; Admin Dose 125 MLS/HR; Start 06/28/16 at 22:00 Valsartan (Diovan) 80 mg BID PO Last administered on 07/01/16 10:04; Admin Dose 80 MG; Start 06/30/16 at 09:00 Tamsulosin HCl (Flomax) 0.4 mg HS PO Last administered on 06/30/16 20:48; Admin Dose 0.4 MG; Start 06/29/16 at 18:00 Finasteride (Proscar) 5 mg DAILY PO Last administered on 07/01/16 10:04; Admin Dose 5 MG; Start 06/30/16 at 13:00 Prednisone (Prednisone) 40 mg DAILY PO ; Start 07/02/16 at 09:00 Miscellaneous Information (*Rx Drug Level Order Reminder*) VANCOMYCIN TROUGH AT 2100 ONCE ONCE XX ; Start 07/01/16 at 21:00; Stop 07/01/16 at 21:01 RICHIE SWEET Jul 01, 2016 12:35
[2016-07-01] MEDS ORDERED: LIDOCAINE 1% (MDV) 20 ML INJ SC ONE (13:30)
--- NOTE | 2016-07-01 14:25 | CONS ---
Date/Time of Note Date/Time of Note DATE: 07/01/16 TIME: 14:23 Assessment/Plan Assessment/Plan Additional Assessment/Plan Dyspnea, cough and fevers Mild acute decompensated systolic congestive heart failure COPD exacerbation Paroxysmal atrial fibrillation/flutter Heart block status post pacemaker 06/16/2016 Cardiomyopathy ejection fraction 35% Aortic stenosis, status post transcatheter aortic valve replacement in January 2015. Anemia CAD with recent PCI -Lung examination has improved. Would continue maintenance diuretics. Blood pressure trend appears stable. Given patient with heart myopathy and CAD, would benefit from beta mayela, he was on beta mayela during previous admission. We' ll restart if no contraindication. Consultation Date/Type/Reason Admit Date/Time Jun 28, 2016 at 03:56 Type of Consultation: cv 24 HR Interval Summary Free Text/Dictation Patient feeling better, less shortness of breath, denies chest pain Exam/Review of Systems Vital Signs Vitals Vital Signs Date Time Temp Pulse Resp B/P Pulse Ox O2 Delivery O2 Flow Rate FiO2 07/01/16 13:57 97 2.0 28 07/01/16 13:57 86 20 Nasal Cannula 07/01/16 08:02 98.0 136/59 Intake and Output 06/30/16 06/30/16 07/01/16 14:59 22:59 06:59 Intake Total 100 ml 1606 ml 850 ml Output Total 2000 ml 1000 ml Balance 100 ml -394 ml -150 ml Exam No apparent distress Constitutional: alert, frail, oriented Head: normocephalic Neck: supple Respiratory: other (course breath sounds, minimal scattered rhonchi) Cardiovascular: other (S1-S2 heard), regular rate and rhythm Gastrointestinal: bowel sounds, non-tender, soft Extremities: other (no edema) Results Result Diagram: 07/01/16 0640 07/01/16 0640 Results 24 hrs Laboratory Tests Test 06/30/16 16:10 07/01/16 06:40 07/01/16 06:45 Anion Gap 12 9 Blood Urea Nitrogen 27 H 29 H Calcium Level 7.5 L 7.5 L Carbon Dioxide Level 37 H 39 H Chloride Level 95 L 97 Creatinine 1.16 1.00 Glucose Level 205 183 Potassium Level 3.4 L 4.0 Sodium Level 141 141 Basophils # 0.0 Basophils % 0.2 Blood Morphology Comment Eosinophils # 0.0 Eosinophils % 0.0 Hematocrit 26.0 L Hemoglobin 8.6 L Lymphocytes # 0.5 L Lymphocytes % 6.8 L Mean Corpuscular Hemoglobin 30.9 Mean Corpuscular Hemoglobin Concent 33.2 Mean Corpuscular Volume 93.2 Mean Platelet Volume 7.9 Monocytes # 0.3 Monocytes % 4.6 Neutrophils # 6.6 Neutrophils % 88.4 H Nucleated Red Blood Cells # 0.0 Nucleated Red Blood Cells % 0.0 Platelet Count 134 L Red Blood Count 2.79 L Red Cell Distribution Width 16.7 H White Blood Count 7.4 Magnesium Level 2.1 Phosphorus Level 2.3 #L Medications Medications Current Medications Aspirin (Halfprin) 81 mg DAILY PO Last administered on 07/01/16 10:04; Admin Dose 81 MG; Start 06/28/16 at 09:00 Clopidogrel Bisulfate (plaVIX) 75 mg DAILY PO Last administered on 07/01/16 10 :05; Admin Dose 75 MG; Start 06/28/16 at 09:00 Ferrous Sulfate (Ferrous Sulfate (Ec)) 325 mg BID PO Last administered on 10:05; Admin Dose 325 MG; Start 06/28/16 at 09:00 Fluticasone Propionate (Flonase 0.05% Nasal) 1 spray BID NASAL Last administered on 07/01/16 09:00; Admin Dose 1 SPRAY; Start 06/28/16 at 09:00 Gabapentin (Neurontin) 300 mg TID PO Last administered on 07/01/16 10:04; Admin Dose 300 MG; Start 06/28/16 at 09:00 Methocarbamol (Robaxin) 750 mg TID PO Last administered on 07/01/16 10:04; Admin Dose 750 MG; Start 06/28/16 at 09:00 Montelukast Sodium (Singulair) 10 mg HS PO Last administered on 06/30/16 20:47 ; Admin Dose 10 MG; Start 06/28/16 at 21:00 Multivitamins Therapeutic (Theragran) 1 tab DAILY PO Last administered on 10:03; Admin Dose 1 TAB; Start 06/28/16 at 09:00 Ondansetron HCl (Zofran Tab) 4 mg Q6H PRN PO NAUSEA; Start 06/28/16 at 04:30 Oxycodone/ Acetaminophen (Endocet (10/ 325)) 1 tab Q6 PRN PO PAIN; Start at 04:30 Salmeterol Xinafoate/ Fluticasone (Advair 500/50 Diskus) 1 inh BID INH Last administered on 07/01/16 10:05; Admin Dose 1 INH; Start 06/28/16 at 09:00 Acetaminophen (Tylenol Tab) 650 mg Q6H PRN PO PAIN LEVEL 1-3 OR FEVER; Start at 04:30 Zolpidem Tartrate (Ambien) 5 mg QHS PRN PO INSOMNIA; Start 06/28/16 at 04:30 Docusate Sodium (Colace) 100 mg Q12H PRN PO CONSTIPATION Last administered on 14:22; Admin Dose 100 MG; Start 06/28/16 at 04:30 Famotidine (Pepcid) 20 mg Q12 PO Last administered on 07/01/16 10:04; Admin Dose 20 MG; Start 06/28/16 at 09:00 Enoxaparin Sodium (Lovenox) 40 mg DAILY SC Last administered on 07/01/16 09:00 ; Admin Dose 40 MG; Start 06/28/16 at 09:00 Bumetanide (Bumex) 2 mg DAILY PO Last administered on 07/01/16 10:03; Admin Dose 2 MG; Start 06/28/16 at 09:00 Guaifenesin/ Dextromethorphan (Mucinex Dm) 1 tab BID PO Last administered on 10:03; Admin Dose 1 TAB; Start 06/28/16 at 09:00 Fish Oil (Fish Oil) 1,000 mg DAILY PO Last administered on 07/01/16 10:03; Admin Dose 1,000 MG; Start 06/28/16 at 09:00 Atorvastatin Calcium (Lipitor) 20 mg DAILY@21 PO Last administered on 20:47; Admin Dose 20 MG; Start 06/28/16 at 21:00 Lactobacillus Acidoph/ Bulgaricus 1 tab 1 tab TID PO Last administered on 10:03; Admin Dose 1 TAB; Start 06/28/16 at 13:00 Vancomycin HCl (Vancocin) 250 ml @ 125 mls/hr Q24H IVPB Last administered on 22:14; Admin Dose 125 MLS/HR; Start 06/28/16 at 22:00 Valsartan (Diovan) 80 mg BID PO Last administered on 07/01/16 10:04; Admin Dose 80 MG; Start 06/30/16 at 09:00 Tamsulosin HCl (Flomax) 0.4 mg HS PO Last administered on 06/30/16 20:48; Admin Dose 0.4 MG; Start 06/29/16 at 18:00 Finasteride (Proscar) 5 mg DAILY PO Last administered on 07/01/16 10:04; Admin Dose 5 MG; Start 06/30/16 at 13:00 Prednisone (Prednisone) 40 mg DAILY PO ; Start 07/02/16 at 09:00 Miscellaneous Information VANCOMYCIN TROUGH AT 2100 ONCE ONCE XX ; Start 07/01/16 at 21:00; Stop 07/01/16 at 21:01 Ertapenem/Sodium Chloride (Invanz/NS) 100 ml @ 200 mls/hr Q24H IVPB ; Start at 14:30 Calos Peralta DO Jul 01, 2016 14:25
--- NOTE | 2016-07-01 16:50 | RADRPT ---
PROCEDURE: XR Chest. CLINICAL INDICATION: Check PICC line position. TECHNIQUE: Single frontal view. COMPARISON: 06/29/2016. FINDINGS: There is a right arm PICC line with the tip coiled in the right subclavian vein medially. The left- sided dual lead permanent pacemaker/internal cardiac defibrillator is unchanged. The heart is enlar ged. There is calcification in the aorta consistent with atherosclerosis. There is a probable chun scatheter aortic valve replacement. Pulmonary edema is unchanged. There is no pleural effusion. There is no pneumothorax. IMPRESSION: 1. The right arm PICC line needs to be repositioned as the tip is coiled in the right subclavian ve in medially. 2. No other change from 06/29/2016. RPTAT: QQ .Oscar Jackson MD, Date Time Electronically viewed and signed by .Oscar Jackson MD, on 07/01/2016 16:49 .R/
--- NOTE | 2016-07-01 16:51 | RADRPT ---
PROCEDURE: XR Chest. CLINICAL INDICATION: Check PICC line position. TECHNIQUE: Single frontal view. COMPARISON: 07/01/2016. 1607 hours. FINDINGS: There is a right arm PICC line with the tip in the lower superior vena cava. Pulmonary edema is unc hanged. The heart is enlarged. There is calcification in the aorta consistent with atherosclerosis . The left-sided dual lead permanent pacemaker/internal cardiac defibrillator is unchanged. There is a probable transcatheter aortic valve replacement. There is no pleural effusion. There is no pneumothorax. IMPRESSION: 1. Satisfactory position of right arm PICC line. 2. No other change from the prior study done earlier the same day. RPTAT: QQ .Oscar Jackson MD, MD Date Time Electronically viewed and signed by .Oscar Jackson MD, on 07/01/2016 16:51 .R/
--- NOTE | 2016-07-01 17:11 | RADRPT ---
PROCEDURE: Ultrasound guidance for placement of needle in right upper extremity vein. CLINICAL INDICATION: Venous access. TECHNIQUE: Limited sonography of the right upper extremity was performed. Ultrasound images were recorded and stored in the patient's medical record. COMPARISON: None. FINDINGS: The ultrasound images demonstrate a patent right upper extremity vein. The PICC line was inserted b y the PICC line nurse. IMPRESSION: 1. Ultrasound guidance for a needle placement in a right upper extremity vein. 2. The visualized right upper extremity vein is patent. RPTAT: QQ .Oscar Jackson MD, MD Date Time Electronically viewed and signed by .Oscar Jackson MD, MD on 07/01/2016 17:11 .R/
[2016-07-01] MEDS ORDERED: SOD CHLORIDE 0.9% 100 ML ONE (17:47)
[2016-07-01] MEDS: METOPROLOL (XL) 25 MG TAB PO SCH ×2 (18:13→23:38)
[2016-07-01] MEDS: ERTAPENEM SODIUM 1 GM in SOD CHLORIDE 0.9% 100 ML IVPB SCH (18:14)
[2016-07-01] MEDS: ATORVASTATIN 20 MG TAB PO SCH (21:44)
[2016-07-01] MEDS: MONTELUKAST 10 MG TAB PO SCH (21:44)
[2016-07-01] MEDS: TAMSULOSIN (SR) 0.4 MG CAP PO SCH (21:46)
[2016-07-01] MEDS: VANCOMYCIN 1 GM in NS 250 ML IVPB SCH (21:58)
[2016-07-02] VITALS (12 sets, daily range): BP systolic 130–160; BP diastolic 60–70; PULSE 59–70; RESP 16–19
[2016-07-02] MEDS: ALBUTEROL/IPRATROPIUM (NEB) 3 ML AMP HHN SCH ×6 (01:48→20:49)
[2016-07-02 07:12] LABS: MAGNESIUM 1.9 mg/dl (1.7-2.5); PHOSPHORUS 2.5 mg/dl (2.5-4.9)
[2016-07-02 07:17] LABS: MONOCYTE # 0.3 10^3/ul (0.3-0.9)
[2016-07-02 07:20] LABS: CONDITION 1; LH ANALYZER COMMENTS 1
[2016-07-02 09:00] LABS: CREATININE 0.79 mg/dl (0.61-1.24)
[2016-07-02 09:01] LABS: CALCIUM 7.5 mg/dl (8.4-10.2)
[2016-07-02 09:09] LABS: POTASSIUM 3.4 mmol/L (3.5-5.1)
[2016-07-02 09:23] LABS: RED BLOOD COUNT 2.68 10^6/ul (4.70-6.10); UNCORRECTED WBC 5.9 10^3/ul (4.8-10.8); WHITE BLOOD COUNT 5.9 10^3/ul (4.8-10.8)
[2016-07-02 09:24] LABS: HEMOGLOBIN 8.3 g/dl (14.0-18.0)
[2016-07-02 09:28] LABS: HEMATOCRIT 24.9 % (42.0-52.0); MEAN CORPUSCULAR HEMOGLOBIN 30.7 pg (29.0-33.0); MEAN CORPUSCULAR HGB CONC 33.1 g/dl (32.0-37.0); MEAN CORPUSCULAR VOLUME 92.8 fl (82.0-101.0)
[2016-07-02 09:29] LABS: LYMPHOCYTES % 17.6 % (15.0-51.0); MEAN PLATELET VOLUME 8.2 fl (7.4-10.4); NEUTROPHILS % 76.5 % (39.0-77.0); PLATELET COUNT 140 10^3/UL (140-440); RED CELL DISTRIBUTION WIDTH 16.7 % (11.5-14.5)
[2016-07-02 09:30] LABS: BASOPHILS % 0.2 % (0.0-2.0); EOSINOPHILS % 0.2 % (0.0-7.0); MONOCYTES % 5.5 % (0.0-11.0); NEUTROPHIL # 4.5 10^3/ul (1.6-7.5)
[2016-07-02] MEDS: SALMETEROL/FLUTICASONE 500/50 INHA INH SCH ×2 (09:35→20:39)
[2016-07-02] MEDS: FLUTICASONE 0.05% 16 GM NAS SPRAY NASAL SCH ×2 (09:35→20:33)
[2016-07-02] MEDS: BUMETANIDE 1 MG TAB PO SCH (09:36)
[2016-07-02] MEDS: FISH OIL 1,000 MG CAP PO SCH (09:36)
[2016-07-02] MEDS: VALSARTAN 80 MG TAB PO SCH ×2 (09:36→20:40)
[2016-07-02] MEDS: ASPIRIN (EC) 81 MG TAB PO SCH (09:36)
[2016-07-02] MEDS: LACTOBACILLUS CHEW TAB PO SCH ×3 (09:36→20:34)
[2016-07-02] MEDS: FERROUS SULFATE (EC) 325 MG TAB PO SCH ×2 (09:36→20:33)
[2016-07-02] MEDS: predniSONE 20 MG TAB PO SCH (09:37)
[2016-07-02] MEDS: CLOPIDOGREL 75 MG TAB PO SCH (09:37)
[2016-07-02] MEDS: METOPROLOL (XL) 25 MG TAB PO SCH ×2 (09:37→20:40)
[2016-07-02] MEDS: FAMOTIDINE 20 MG TAB PO SCH ×2 (09:37→20:34)
[2016-07-02] MEDS: GABAPENTIN 300 MG CAP PO SCH ×3 (09:37→20:34)
[2016-07-02] MEDS: MULTIVITAMINS THERAPEUTIC TAB PO SCH (09:37)
[2016-07-02] MEDS: FINASTERIDE 5 MG TAB PO SCH (09:37)
[2016-07-02] MEDS: GUAIFENESIN/DM (SR) TAB PO SCH ×2 (09:37→20:38)
[2016-07-02] MEDS: METHOCARBAMOL 750 MG TAB PO SCH ×3 (09:37→20:33)
[2016-07-02] MEDS: ENOXAPARIN 40 MG/0.4 ML SYG SC SCH (09:42)
[2016-07-02] MEDS ORDERED: POTASSIUM CHLORIDE (SR) 20 MEQ TAB PO STA (10:50)
[2016-07-02] MEDS ORDERED: MAGNESIUM SULFATE 1 GM/D5W 100 ML IVPB ONE (11:00)
--- NOTE | 2016-07-02 12:39 | PN ---
Date/Time of Note Date/Time of Note DATE: 07/02/16 TIME: 12:22 Assessment/Plan VTE Prophylaxis VTE Prophylaxis Intervention: LMWH Lines/Catheters IV Catheter Type (from Nrsg): PICC Line Central line still needed: Yes (for IV abx ) Urinary Cath still in place: Yes Reason Cath still needed: urinary retention Assessment/Plan Assessment/Plan 80 yo man : 1. HCAP likely, afebrile since admission now after T max 102 on admission WBC wnl Changed to Invanz and Vancomycin x 8 days on discharge tomorrow, S/p PICC line yesterday Continue Probiotics, Gentle diuresis with Bumex down to 1 mg daily. CE negative, change to Prednisone 40 mg po daily with taper down to maintenance dosing as outpatient 2. CAD, ischemic cardiomyopathy and systolic dysfunction. Continue metoprolol, Lipitor and back on ARB On Lovenox for DVT prophylaxis 3. Chronic obstructive pulmonary disease, chronic hypoxemia with possible HCAP now, Continue Prednisone and taper down to maintenance dose as outpatient. Continue Duoneb therapy 4. Hypernatremia: resolved. 5. Mild thrombocytopenia: stable platelets . 6. ? Hypothyroidism based on TSH of 9:on admission in elderly gentleman while acutely ill, hold of levothyroxine and repeat TFTs as needed or in 2 to 3 weeks. 7. Urinary retention: d/c Arteaga catheter trial, <10K CFU lela in urine, no abx, Arteaga needed to be replaced and to go home with it. On Flomax and Proscar, f/u with Home health RN and Urology as outpatient 8. Hypokalemia/Hypomagnesemia: replete and decreasing Bumex to 1 mg po daily. Prophylaxis with famotidine PO for GI; Lovenox for DVT prevention Disposition: D/c plan home with home health PT and RN for IV abx and PICC line care. Full-Code Subjective 24 Hr Interval Summary Free Text/Dictation Patient stable and ambulated with PT but could not do stair training Decrease Bumex and monitor UOP Exam/Review of Systems Vital Signs Vitals Vital Signs Date Time Temp Pulse Resp B/P Pulse Ox O2 Delivery O2 Flow Rate FiO2 07/02/16 12:13 70 07/02/16 12:01 98.3 19 130/60 97 07/02/16 09:00 Nasal Cannula 2.0 07/02/16 05:34 32 Intake and Output 07/01/16 07/01/16 07/02/16 15:00 23:00 07:00 Intake Total 800 ml 750 ml Output Total 2000 ml 1050 ml Balance -1200 ml -300 ml Exam Constitutional: alert, frail, oriented Respiratory: clear to auscultation, normal air movement Cardiovascular: nl pulses, regular rate and rhythm Gastrointestinal: non-tender, soft Musculoskeletal: other (RLE hematoma improving ) Extremities: normal pulses, other (no edema, clubbing or cyanosis ) 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: PIANO PROFESSOR II-XII intact, nl mental status, nl speech, other ( genralised weakness better ) Results Result Diagram: 07/02/16 0600 07/02/16 0600 Results 24 hrs Laboratory Tests Test 07/01/16 21:00 07/02/16 06:00 Vancomycin Level Trough 15.7 Anion Gap 9 Basophils # 0.0 Basophils % 0.2 Blood Morphology Comment Blood Urea Nitrogen 25 H Calcium Level 7.5 L Carbon Dioxide Level 39 H Chloride Level 95 L Creatinine 0.79 Eosinophils # 0.0 Eosinophils % 0.2 Glucose Level 70 # Hematocrit 24.9 L Hemoglobin 8.3 L Lymphocytes # 1.0 Lymphocytes % 17.6 Magnesium Level 1.9 Mean Corpuscular Hemoglobin 30.7 Mean Corpuscular Hemoglobin Concent 33.1 Mean Corpuscular Volume 92.8 Mean Platelet Volume 8.2 Monocytes # 0.3 Monocytes % 5.5 Neutrophils # 4.5 Neutrophils % 76.5 Nucleated Red Blood Cells # 0.0 Nucleated Red Blood Cells % 0.0 Phosphorus Level 2.5 Platelet Count 140 Potassium Level 3.4 L Red Blood Count 2.68 L Red Cell Distribution Width 16.7 H Sodium Level 140 White Blood Count 5.9 # Medications Medications Current Medications Aspirin (Halfprin) 81 mg DAILY PO Last administered on 07/02/16 09:36; Admin Dose 81 MG; Start 06/28/16 at 09:00 Clopidogrel Bisulfate (plaVIX) 75 mg DAILY PO Last administered on 07/02/16 09 :37; Admin Dose 75 MG; Start 06/28/16 at 09:00 Ferrous Sulfate (Ferrous Sulfate (Ec)) 325 mg BID PO Last administered on 09:36; Admin Dose 325 MG; Start 06/28/16 at 09:00 Fluticasone Propionate (Flonase 0.05% Nasal) 1 spray BID NASAL Last administered on 07/02/16 09:35; Admin Dose 1 SPRAY; Start 06/28/16 at 09:00 Gabapentin (Neurontin) 300 mg TID PO Last administered on 07/02/16 09:37; Admin Dose 300 MG; Start 06/28/16 at 09:00 Methocarbamol (Robaxin) 750 mg TID PO Last administered on 07/02/16 09:37; Admin Dose 750 MG; Start 06/28/16 at 09:00 Montelukast Sodium (Singulair) 10 mg HS PO Last administered on 07/01/16 21:44 ; Admin Dose 10 MG; Start 06/28/16 at 21:00 Multivitamins Therapeutic (Theragran) 1 tab DAILY PO Last administered on 09:37; Admin Dose 1 TAB; Start 06/28/16 at 09:00 Ondansetron HCl (Zofran Tab) 4 mg Q6H PRN PO NAUSEA; Start 06/28/16 at 04:30 Oxycodone/ Acetaminophen (Endocet (10/ 325)) 1 tab Q6 PRN PO PAIN; Start at 04:30 Salmeterol Xinafoate/ Fluticasone (Advair 500/50 Diskus) 1 inh BID INH Last administered on 07/02/16 09:35; Admin Dose 1 INH; Start 06/28/16 at 09:00 Acetaminophen (Tylenol Tab) 650 mg Q6H PRN PO PAIN LEVEL 1-3 OR FEVER; Start at 04:30 Zolpidem Tartrate (Ambien) 5 mg QHS PRN PO INSOMNIA; Start 06/28/16 at 04:30 Docusate Sodium (Colace) 100 mg Q12H PRN PO CONSTIPATION Last administered on 14:22; Admin Dose 100 MG; Start 06/28/16 at 04:30 Famotidine (Pepcid) 20 mg Q12 PO Last administered on 07/02/16 09:37; Admin Dose 20 MG; Start 06/28/16 at 09:00 Enoxaparin Sodium (Lovenox) 40 mg DAILY SC Last administered on 07/02/16 09:42 ; Admin Dose 40 MG; Start 06/28/16 at 09:00 Bumetanide (Bumex) 2 mg DAILY PO Last administered on 07/02/16 09:36; Admin Dose 2 MG; Start 06/28/16 at 09:00 Guaifenesin/ Dextromethorphan (Mucinex Dm) 1 tab BID PO Last administered on 09:37; Admin Dose 1 TAB; Start 06/28/16 at 09:00 Fish Oil (Fish Oil) 1,000 mg DAILY PO Last administered on 07/02/16 09:36; Admin Dose 1,000 MG; Start 06/28/16 at 09:00 Atorvastatin Calcium (Lipitor) 20 mg DAILY@21 PO Last administered on 21:44; Admin Dose 20 MG; Start 06/28/16 at 21:00 Lactobacillus Acidoph/Bulgaricus (Floranex) 1 tab TID PO Last administered on 09:36; Admin Dose 1 TAB; Start 06/28/16 at 13:00 Valsartan (Diovan) 80 mg BID PO Last administered on 07/02/16 09:36; Admin Dose 80 MG; Start 06/30/16 at 09:00 Tamsulosin HCl (Flomax) 0.4 mg HS PO Last administered on 07/01/16 21:46; Admin Dose 0.4 MG; Start 06/29/16 at 18:00 Finasteride (Proscar) 5 mg DAILY PO Last administered on 07/02/16 09:37; Admin Dose 5 MG; Start 06/30/16 at 13:00 Prednisone 40 mg 40 mg DAILY PO Last administered on 07/02/16 09:37; Admin Dose 40 MG; Start 07/02/16 at 09:00 Ertapenem/Sodium Chloride (Invanz/NS) 100 ml @ 200 mls/hr Q24H IVPB Last administered on 07/01/16 18:14; Admin Dose 200 MLS/HR; Start 07/01/16 at 14:30 Metoprolol Succinate (Toprol Xl) 25 mg BID PO Last administered on 07/02/16 09 :37; Admin Dose 25 MG; Start 07/01/16 at 15:00 IV Flush 10 ml 10 ml PRN PRN IV IV PROTOCOL; Start 07/01/16 at 17:00 Vancomycin HCl/ Sodium Chloride (Vancocin/NS) 150 ml @ 75 mls/hr Q24H IVPB ; Start 07/02/16 at 22:00 RICHIE SWEET Jul 02, 2016 12:32
[2016-07-02] MEDS: ERTAPENEM SODIUM 1 GM in SOD CHLORIDE 0.9% 100 ML IVPB SCH (14:30)
--- NOTE | 2016-07-02 14:53 | CONS ---
Date/Time of Note Date/Time of Note DATE: 07/02/16 TIME: 14:52 Assessment/Plan Assessment/Plan Additional Assessment/Plan Dyspnea, cough and fevers Mild acute decompensated systolic congestive heart failure COPD exacerbation Paroxysmal atrial fibrillation/flutter Heart block status post pacemaker 06/16/2016 Cardiomyopathy ejection fraction 35% Aortic stenosis, status post transcatheter aortic valve replacement in January 2015. Anemia CAD with recent PCI -Blood pressure trend remained stable, agree with decreasing Bumex to maintenance dose. Potassium and magnesium supplementation has already been ordered. DC planning Consultation Date/Type/Reason Admit Date/Time Jun 28, 2016 at 03:56 Type of Consultation: cv 24 HR Interval Summary Free Text/Dictation Shortness of breath has improved with less symptoms with activity. Denies chest pain Exam/Review of Systems Vital Signs Vitals Vital Signs Date Time Temp Pulse Resp B/P Pulse Ox O2 Delivery O2 Flow Rate FiO2 07/02/16 13:36 64 18 96 Nasal Cannula 2.0 07/02/16 12:01 98.3 130/60 07/02/16 05:34 32 Intake and Output 07/01/16 07/01/16 07/02/16 15:00 23:00 07:00 Intake Total 800 ml 750 ml Output Total 2000 ml 1050 ml Balance -1200 ml -300 ml Exam No apparent distress Constitutional: alert, frail, oriented Head: normocephalic Neck: supple Respiratory: other (course breath sounds bilaterally, no wheezing) Cardiovascular: other (S1-S2 heard), regular rate and rhythm Gastrointestinal: bowel sounds, non-tender, soft Extremities: other (no edema) Results Result Diagram: 07/02/16 0600 07/02/16 0600 Results 24 hrs Laboratory Tests Test 07/01/16 21:00 07/02/16 06:00 Vancomycin Level Trough 15.7 Anion Gap 9 Basophils # 0.0 Basophils % 0.2 Blood Morphology Comment Blood Urea Nitrogen 25 H Calcium Level 7.5 L Carbon Dioxide Level 39 H Chloride Level 95 L Creatinine 0.79 Eosinophils # 0.0 Eosinophils % 0.2 Glucose Level 70 # Hematocrit 24.9 L Hemoglobin 8.3 L Lymphocytes # 1.0 Lymphocytes % 17.6 Magnesium Level 1.9 Mean Corpuscular Hemoglobin 30.7 Mean Corpuscular Hemoglobin Concent 33.1 Mean Corpuscular Volume 92.8 Mean Platelet Volume 8.2 Monocytes # 0.3 Monocytes % 5.5 Neutrophils # 4.5 Neutrophils % 76.5 Nucleated Red Blood Cells # 0.0 Nucleated Red Blood Cells % 0.0 Phosphorus Level 2.5 Platelet Count 140 Potassium Level 3.4 L Red Blood Count 2.68 L Red Cell Distribution Width 16.7 H Sodium Level 140 White Blood Count 5.9 # Medications Medications Current Medications Aspirin (Halfprin) 81 mg DAILY PO Last administered on 07/02/16 09:36; Admin Dose 81 MG; Start 06/28/16 at 09:00 Clopidogrel Bisulfate (plaVIX) 75 mg DAILY PO Last administered on 07/02/16 09 :37; Admin Dose 75 MG; Start 06/28/16 at 09:00 Ferrous Sulfate (Ferrous Sulfate (Ec)) 325 mg BID PO Last administered on 09:36; Admin Dose 325 MG; Start 06/28/16 at 09:00 Fluticasone Propionate (Flonase 0.05% Nasal) 1 spray BID NASAL Last administered on 07/02/16 09:35; Admin Dose 1 SPRAY; Start 06/28/16 at 09:00 Gabapentin (Neurontin) 300 mg TID PO Last administered on 07/02/16 12:48; Admin Dose 300 MG; Start 06/28/16 at 09:00 Methocarbamol (Robaxin) 750 mg TID PO Last administered on 07/02/16 12:48; Admin Dose 750 MG; Start 06/28/16 at 09:00 Montelukast Sodium (Singulair) 10 mg HS PO Last administered on 07/01/16 21:44 ; Admin Dose 10 MG; Start 06/28/16 at 21:00 Multivitamins Therapeutic (Theragran) 1 tab DAILY PO Last administered on 09:37; Admin Dose 1 TAB; Start 06/28/16 at 09:00 Ondansetron HCl (Zofran Tab) 4 mg Q6H PRN PO NAUSEA; Start 06/28/16 at 04:30 Oxycodone/ Acetaminophen (Endocet (10/ 325)) 1 tab Q6 PRN PO PAIN; Start at 04:30 Salmeterol Xinafoate/ Fluticasone (Advair 500/50 Diskus) 1 inh BID INH Last administered on 07/02/16 09:35; Admin Dose 1 INH; Start 06/28/16 at 09:00 Acetaminophen (Tylenol Tab) 650 mg Q6H PRN PO PAIN LEVEL 1-3 OR FEVER; Start at 04:30 Zolpidem Tartrate (Ambien) 5 mg QHS PRN PO INSOMNIA; Start 06/28/16 at 04:30 Docusate Sodium (Colace) 100 mg Q12H PRN PO CONSTIPATION Last administered on 14:22; Admin Dose 100 MG; Start 06/28/16 at 04:30 Famotidine (Pepcid) 20 mg Q12 PO Last administered on 07/02/16 09:37; Admin Dose 20 MG; Start 06/28/16 at 09:00 Enoxaparin Sodium (Lovenox) 40 mg DAILY SC Last administered on 07/02/16 09:42 ; Admin Dose 40 MG; Start 06/28/16 at 09:00 Guaifenesin/ Dextromethorphan (Mucinex Dm) 1 tab BID PO Last administered on 09:37; Admin Dose 1 TAB; Start 06/28/16 at 09:00 Fish Oil (Fish Oil) 1,000 mg DAILY PO Last administered on 07/02/16 09:36; Admin Dose 1,000 MG; Start 06/28/16 at 09:00 Atorvastatin Calcium (Lipitor) 20 mg DAILY@21 PO Last administered on 21:44; Admin Dose 20 MG; Start 06/28/16 at 21:00 Lactobacillus Acidoph/Bulgaricus (Floranex) 1 tab TID PO Last administered on 12:48; Admin Dose 1 TAB; Start 06/28/16 at 13:00 Valsartan (Diovan) 80 mg BID PO Last administered on 07/02/16 09:36; Admin Dose 80 MG; Start 06/30/16 at 09:00 Tamsulosin HCl (Flomax) 0.4 mg HS PO Last administered on 07/01/16 21:46; Admin Dose 0.4 MG; Start 06/29/16 at 18:00 Finasteride (Proscar) 5 mg DAILY PO Last administered on 07/02/16 09:37; Admin Dose 5 MG; Start 06/30/16 at 13:00 Prednisone 40 mg 40 mg DAILY PO Last administered on 07/02/16 09:37; Admin Dose 40 MG; Start 07/02/16 at 09:00 Ertapenem/Sodium Chloride (Invanz/NS) 100 ml @ 200 mls/hr Q24H IVPB Last administered on 07/01/16 18:14; Admin Dose 200 MLS/HR; Start 07/01/16 at 14:30 Metoprolol Succinate (Toprol Xl) 25 mg BID PO Last administered on 07/02/16 09 :37; Admin Dose 25 MG; Start 07/01/16 at 15:00 IV Flush 10 ml 10 ml PRN PRN IV IV PROTOCOL; Start 07/01/16 at 17:00 Vancomycin HCl/ Sodium Chloride (Vancocin/NS) 150 ml @ 75 mls/hr Q24H IVPB ; Start 07/02/16 at 22:00 Bumetanide (Bumex) 1 mg DAILY PO ; Start 07/03/16 at 09:00 Calos Peralta DO Jul 02, 2016 14:53
[2016-07-02] MEDS: ATORVASTATIN 20 MG TAB PO SCH (20:33)
[2016-07-02] MEDS: TAMSULOSIN (SR) 0.4 MG CAP PO SCH (20:33)
[2016-07-02] MEDS: MONTELUKAST 10 MG TAB PO SCH (20:34)
[2016-07-02] MEDS ORDERED: VANCOMYCIN 750 MG in SOD CHLORIDE 0.9% 150 ML IVPB SCH (22:00)
[2016-07-03] VITALS (10 sets, daily range): BP systolic 122–140; BP diastolic 58–66; PULSE 60–66; RESP 16–19
[2016-07-03] MEDS: ALBUTEROL/IPRATROPIUM (NEB) 3 ML AMP HHN SCH ×4 (00:42→13:46)
[2016-07-03 06:24] LABS: POTASSIUM 3.6 mmol/L (3.5-5.1)
[2016-07-03 06:27] LABS: CALCIUM 7.4 mg/dl (8.4-10.2); CREATININE 0.87 mg/dl (0.61-1.24)
[2016-07-03 06:34] LABS: BASOPHILS % 0.3 % (0.0-2.0); EOSINOPHILS % 0.5 % (0.0-7.0); HEMATOCRIT 24.7 % (42.0-52.0); HEMOGLOBIN 8.3 g/dl (14.0-18.0); LYMPHOCYTES # 1.1 10^3/ul (0.8-2.9); LYMPHOCYTES % 21.1 % (15.0-51.0); MEAN CORPUSCULAR HGB CONC 33.4 g/dl (32.0-37.0); MEAN CORPUSCULAR VOLUME 92.6 fl (82.0-101.0); MEAN PLATELET VOLUME 7.9 fl (7.4-10.4); MONOCYTE # 0.3 10^3/ul (0.3-0.9); MONOCYTES % 5.8 % (0.0-11.0); NEUTROPHIL # 3.6 10^3/ul (1.6-7.5); NEUTROPHILS % 72.3 % (39.0-77.0); PLATELET COUNT 145 10^3/UL (140-440); RED BLOOD COUNT 2.67 10^6/ul (4.70-6.10)
[2016-07-03 06:55] LABS: CONDITION 1; LH ANALYZER COMMENTS 1
[2016-07-03] MEDS: SALMETEROL/FLUTICASONE 500/50 INHA INH SCH (08:45)
[2016-07-03] MEDS: ASPIRIN (EC) 81 MG TAB PO SCH (08:45)
[2016-07-03] MEDS: predniSONE 20 MG TAB PO SCH (08:45)
[2016-07-03] MEDS: FERROUS SULFATE (EC) 325 MG TAB PO SCH (08:45)
[2016-07-03] MEDS: LACTOBACILLUS CHEW TAB PO SCH ×2 (08:45→13:22)
[2016-07-03] MEDS: FLUTICASONE 0.05% 16 GM NAS SPRAY NASAL SCH (08:45)
[2016-07-03] MEDS: MULTIVITAMINS THERAPEUTIC TAB PO SCH (08:45)
[2016-07-03] MEDS: FINASTERIDE 5 MG TAB PO SCH (08:46)
[2016-07-03] MEDS: VALSARTAN 80 MG TAB PO SCH (08:46)
[2016-07-03] MEDS: GABAPENTIN 300 MG CAP PO SCH ×2 (08:46→13:22)
[2016-07-03] MEDS: FAMOTIDINE 20 MG TAB PO SCH (08:46)
[2016-07-03] MEDS: METHOCARBAMOL 750 MG TAB PO SCH ×2 (08:46→13:22)
[2016-07-03] MEDS: FISH OIL 1,000 MG CAP PO SCH (08:47)
[2016-07-03] MEDS: CLOPIDOGREL 75 MG TAB PO SCH (08:47)
[2016-07-03] MEDS: METOPROLOL (XL) 25 MG TAB PO SCH (08:47)
[2016-07-03] MEDS: GUAIFENESIN/DM (SR) TAB PO SCH (08:47)
[2016-07-03] MEDS: ENOXAPARIN 40 MG/0.4 ML SYG SC SCH (08:50)
[2016-07-03] MEDS ORDERED: BUMETANIDE 1 MG TAB PO SCH (09:00)
[2016-07-03] MEDS: ERTAPENEM SODIUM 1 GM in SOD CHLORIDE 0.9% 100 ML IVPB SCH (13:26)
[2016-07-03] MEDS ORDERED: POTASSIUM CHLORIDE (SR) 20 MEQ TAB PO STA (13:32)
--- NOTE | 2016-07-03 13:34 | CONS ---
Date/Time of Note Date/Time of Note DATE: 07/03/16 TIME: 13:33 Assessment/Plan Assessment/Plan Additional Assessment/Plan Mild acute decompensated systolic congestive heart failure Possible pneumonia COPD exacerbation Paroxysmal atrial fibrillation/flutter Heart block status post pacemaker 06/16/2016 Cardiomyopathy ejection fraction 35% Aortic stenosis, status post transcatheter aortic valve replacement in January 2015. Anemia CAD with recent PCI -Patient appears near euvolemic, continue maintenance diuretics as renal function and blood pressure permits, potassium supplementation has been ordered. Blood pressure trend appears stable. DC planning Consultation Date/Type/Reason Admit Date/Time Jun 28, 2016 at 03:56 Type of Consultation: cv 24 HR Interval Summary Free Text/Dictation Shortness of breath is the same and cough, denies chest pain or dizziness Exam/Review of Systems Vital Signs Vitals Vital Signs Date Time Temp Pulse Resp B/P Pulse Ox O2 Delivery O2 Flow Rate FiO2 07/03/16 13:25 61 07/03/16 11:50 98.2 19 122/58 98 07/03/16 08:20 Nasal Cannula 2.0 07/02/16 05:34 32 Intake and Output 07/02/16 07/02/16 07/03/16 15:00 23:00 07:00 Intake Total 925 ml 315 ml Output Total 2500 ml 950 ml Balance -1575 ml -635 ml Exam Eating lunch Constitutional: alert, frail, oriented Head: normocephalic Neck: supple Respiratory: other (course breath sounds bilaterally with scattered rhonchi, no wheezing) Cardiovascular: other (S1 and S2 heard), regular rate and rhythm Gastrointestinal: bowel sounds, non-tender, soft Extremities: edema (trace) Results Result Diagram: 07/03/16 0600 07/03/16 0600 Results 24 hrs Laboratory Tests Test 07/03/16 06:00 Anion Gap 9 Basophils # 0.0 Basophils % 0.3 Blood Morphology Comment Blood Urea Nitrogen 25 H Calcium Level 7.4 L Carbon Dioxide Level Chloride Level 94 L Creatinine 0.87 Eosinophils # 0.0 Eosinophils % 0.5 Glucose Level 81 Hematocrit 24.7 L Hemoglobin 8.3 L Lymphocytes # 1.1 Lymphocytes % 21.1 Magnesium Level 2.0 Mean Corpuscular Hemoglobin 31.0 Mean Corpuscular Hemoglobin Concent 33.4 Mean Corpuscular Volume 92.6 Mean Platelet Volume 7.9 Monocytes # 0.3 Monocytes % 5.8 Neutrophils # 3.6 Neutrophils % 72.3 Nucleated Red Blood Cells # 0.0 Nucleated Red Blood Cells % 0.0 Platelet Count 145 Potassium Level 3.6 Red Blood Count 2.67 L Red Cell Distribution Width 16.0 H Sodium Level 139 White Blood Count 5.0 Medications Medications Current Medications Aspirin (Halfprin) 81 mg DAILY PO Last administered on 07/03/16 08:45; Admin Dose 81 MG; Start 06/28/16 at 09:00 Clopidogrel Bisulfate (plaVIX) 75 mg DAILY PO Last administered on 07/03/16 08 :47; Admin Dose 75 MG; Start 06/28/16 at 09:00 Ferrous Sulfate (Ferrous Sulfate (Ec)) 325 mg BID PO Last administered on 08:45; Admin Dose 325 MG; Start 06/28/16 at 09:00 Fluticasone Propionate (Flonase 0.05% Nasal) 1 spray BID NASAL Last administered on 07/03/16 08:45; Admin Dose 1 SPRAY; Start 06/28/16 at 09:00 Gabapentin (Neurontin) 300 mg TID PO Last administered on 07/03/16 13:22; Admin Dose 300 MG; Start 06/28/16 at 09:00 Methocarbamol (Robaxin) 750 mg TID PO Last administered on 07/03/16 13:22; Admin Dose 750 MG; Start 06/28/16 at 09:00 Montelukast Sodium (Singulair) 10 mg HS PO Last administered on 07/02/16 20:34 ; Admin Dose 10 MG; Start 06/28/16 at 21:00 Multivitamins Therapeutic (Theragran) 1 tab DAILY PO Last administered on 08:45; Admin Dose 1 TAB; Start 06/28/16 at 09:00 Ondansetron HCl (Zofran Tab) 4 mg Q6H PRN PO NAUSEA; Start 06/28/16 at 04:30 Oxycodone/ Acetaminophen (Endocet (10/ 325)) 1 tab Q6 PRN PO PAIN Last administered on 07/03/16 13:22; Admin Dose 1 TAB; Start 06/28/16 at 04:30 Salmeterol Xinafoate/ Fluticasone (Advair 500/50 Diskus) 1 inh BID INH Last administered on 07/03/16 08:45; Admin Dose 1 INH; Start 06/28/16 at 09:00 Acetaminophen (Tylenol Tab) 650 mg Q6H PRN PO PAIN LEVEL 1-3 OR FEVER; Start at 04:30 Zolpidem Tartrate (Ambien) 5 mg QHS PRN PO INSOMNIA; Start 06/28/16 at 04:30 Docusate Sodium (Colace) 100 mg Q12H PRN PO CONSTIPATION Last administered on 14:22; Admin Dose 100 MG; Start 06/28/16 at 04:30 Famotidine (Pepcid) 20 mg Q12 PO Last administered on 07/03/16 08:46; Admin Dose 20 MG; Start 06/28/16 at 09:00 Enoxaparin Sodium (Lovenox) 40 mg DAILY SC Last administered on 07/03/16 08:50 ; Admin Dose 40 MG; Start 06/28/16 at 09:00 Guaifenesin/ Dextromethorphan (Mucinex Dm) 1 tab BID PO Last administered on 08:47; Admin Dose 1 TAB; Start 06/28/16 at 09:00 Fish Oil (Fish Oil) 1,000 mg DAILY PO Last administered on 07/03/16 08:47; Admin Dose 1,000 MG; Start 06/28/16 at 09:00 Atorvastatin Calcium (Lipitor) 20 mg DAILY@21 PO Last administered on 20:33; Admin Dose 20 MG; Start 06/28/16 at 21:00 Lactobacillus Acidoph/Bulgaricus (Floranex) 1 tab TID PO Last administered on 13:22; Admin Dose 1 TAB; Start 06/28/16 at 13:00 Valsartan (Diovan) 80 mg BID PO Last administered on 07/03/16 08:46; Admin Dose 80 MG; Start 06/30/16 at 09:00 Tamsulosin HCl (Flomax) 0.4 mg HS PO Last administered on 07/02/16 20:33; Admin Dose 0.4 MG; Start 06/29/16 at 18:00 Finasteride (Proscar) 5 mg DAILY PO Last administered on 07/03/16 08:46; Admin Dose 5 MG; Start 06/30/16 at 13:00 Prednisone 40 mg 40 mg DAILY PO Last administered on 07/03/16 08:45; Admin Dose 40 MG; Start 07/02/16 at 09:00 Ertapenem/Sodium Chloride (Invanz/NS) 100 ml @ 200 mls/hr Q24H IVPB Last administered on 07/03/16 13:26; Admin Dose 200 MLS/HR; Start 07/01/16 at 14:30 Metoprolol Succinate (Toprol Xl) 25 mg BID PO Last administered on 07/03/16 08 :47; Admin Dose 25 MG; Start 07/01/16 at 15:00 IV Flush 10 ml 10 ml PRN PRN IV IV PROTOCOL; Start 07/01/16 at 17:00 Vancomycin HCl/ Sodium Chloride (Vancocin/NS) 150 ml @ 75 mls/hr Q24H IVPB Last administered on 07/02/16 21:30; Admin Dose 75 MLS/HR; Start 07/02/16 at 22 :00 Bumetanide (Bumex) 1 mg DAILY PO Last administered on 07/03/16 08:46; Admin Dose 1 MG; Start 07/03/16 at 09:00 Calos Peralta DO Jul 03, 2016 13:34
[2016-07-03] MEDS ORDERED: MAGNESIUM SULFATE 1 GM/D5W 100 ML IVPB ONE (14:00)
--- NOTE | 2016-07-03 14:12 | PN ---
Date/Time of Note Date/Time of Note DATE: 07/03/16 TIME: 14:03 Assessment/Plan VTE Prophylaxis VTE Prophylaxis Intervention: SCD's Lines/Catheters IV Catheter Type (from Nrsg): PICC Line Central line still needed: Yes (for IV access) Urinary Cath still in place: Yes Reason Cath still needed: urinary retention Assessment/Plan Assessment/Plan 80 yo man : 1. HCAP likely, afebrile since admission now after T max 102 on admission WBC wnl Changed to Invanz and Vancomycin x 8 days on discharge today, s/p PICC line yesterday Continue Probiotics, Gentle diuresis with Bumex down to 1 mg daily. CE negative, change to Prednisone 40 mg po daily with taper down to maintenance dosing as outpatient 2. CAD, ischemic cardiomyopathy and systolic dysfunction. Continue metoprolol, Lipitor and back on ARB On Lovenox for DVT prophylaxis 3. Chronic obstructive pulmonary disease, chronic hypoxemia with possible HCAP now, Continue Prednisone and taper down to maintenance dose as outpatient. Continue Duoneb therapy 4. Hypernatremia: resolved. 5. Mild thrombocytopenia: stable platelets . 6. ? Hypothyroidism based on TSH of 9:on admission in elderly gentleman while acutely ill, hold of levothyroxine and repeat TFTs as needed or in 2 to 3 weeks. 7. Urinary retention: d/c Arteaga catheter trial, <10K CFU lela in urine, no abx, Arteaga needed to be replaced and to go home with it. On Flomax and Proscar, f/u with Home health RN and Urology as outpatient 8. Hypokalemia/Hypomagnesemia: repleted. Prophylaxis with famotidine PO for GI; Lovenox for DVT prevention Disposition: D/c plan home today with home health PT and RN for IV abx and PICC line care. Full-Code Subjective 24 Hr Interval Summary Free Text/Dictation Patient emotional and crying because was told he is going to [facility] Patient set up for the past 48 hrs for d/c home today and all arrangements done but now unclear what has changed that patient not clear where to go Stable for discharge from medical and cardiology standpoint Exam/Review of Systems Vital Signs Vitals Vital Signs Date Time Temp Pulse Resp B/P Pulse Ox O2 Delivery O2 Flow Rate FiO2 07/03/16 13:50 92 07/03/16 13:49 68 20 Nasal Cannula 2.0 07/03/16 11:50 98.2 122/58 07/02/16 05:34 32 Intake and Output 07/02/16 07/02/16 07/03/16 15:00 23:00 07:00 Intake Total 925 ml 315 ml Output Total 2500 ml 950 ml Balance -1575 ml -635 ml Exam Constitutional: alert, frail, oriented Respiratory: diminished breath sounds (slightly bases bilaterally ), normal air movement Cardiovascular: nl pulses, other (paced ), regular rate and rhythm Gastrointestinal: non-tender, soft Musculoskeletal: nl extremities to inspection Extremities: normal pulses 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: DIRECTOR OF LOSS PREVENTION II-XII intact, nl mental status, nl speech, other ( generalised weakness ) Results Result Diagram: 07/03/16 0600 07/03/16 0600 Results 24 hrs Laboratory Tests Test 07/03/16 06:00 Anion Gap 9 Basophils # 0.0 Basophils % 0.3 Blood Morphology Comment Blood Urea Nitrogen 25 H Calcium Level 7.4 L Carbon Dioxide Level Chloride Level 94 L Creatinine 0.87 Eosinophils # 0.0 Eosinophils % 0.5 Glucose Level 81 Hematocrit 24.7 L Hemoglobin 8.3 L Lymphocytes # 1.1 Lymphocytes % 21.1 Magnesium Level 2.0 Mean Corpuscular Hemoglobin 31.0 Mean Corpuscular Hemoglobin Concent 33.4 Mean Corpuscular Volume 92.6 Mean Platelet Volume 7.9 Monocytes # 0.3 Monocytes % 5.8 Neutrophils # 3.6 Neutrophils % 72.3 Nucleated Red Blood Cells # 0.0 Nucleated Red Blood Cells % 0.0 Platelet Count 145 Potassium Level 3.6 Red Blood Count 2.67 L Red Cell Distribution Width 16.0 H Sodium Level 139 White Blood Count 5.0 Medications Medications Current Medications Aspirin (Halfprin) 81 mg DAILY PO Last administered on 07/03/16 08:45; Admin Dose 81 MG; Start 06/28/16 at 09:00 Clopidogrel Bisulfate (plaVIX) 75 mg DAILY PO Last administered on 07/03/16 08 :47; Admin Dose 75 MG; Start 06/28/16 at 09:00 Ferrous Sulfate (Ferrous Sulfate (Ec)) 325 mg BID PO Last administered on 08:45; Admin Dose 325 MG; Start 06/28/16 at 09:00 Fluticasone Propionate (Flonase 0.05% Nasal) 1 spray BID NASAL Last administered on 07/03/16 08:45; Admin Dose 1 SPRAY; Start 06/28/16 at 09:00 Gabapentin (Neurontin) 300 mg TID PO Last administered on 07/03/16 13:22; Admin Dose 300 MG; Start 06/28/16 at 09:00 Methocarbamol (Robaxin) 750 mg TID PO Last administered on 07/03/16 13:22; Admin Dose 750 MG; Start 06/28/16 at 09:00 Montelukast Sodium (Singulair) 10 mg HS PO Last administered on 07/02/16 20:34 ; Admin Dose 10 MG; Start 06/28/16 at 21:00 Multivitamins Therapeutic (Theragran) 1 tab DAILY PO Last administered on 08:45; Admin Dose 1 TAB; Start 06/28/16 at 09:00 Ondansetron HCl (Zofran Tab) 4 mg Q6H PRN PO NAUSEA; Start 06/28/16 at 04:30 Oxycodone/ Acetaminophen (Endocet (10/ 325)) 1 tab Q6 PRN PO PAIN Last administered on 07/03/16 13:22; Admin Dose 1 TAB; Start 06/28/16 at 04:30 Salmeterol Xinafoate/ Fluticasone (Advair 500/50 Diskus) 1 inh BID INH Last administered on 07/03/16 08:45; Admin Dose 1 INH; Start 06/28/16 at 09:00 Acetaminophen (Tylenol Tab) 650 mg Q6H PRN PO PAIN LEVEL 1-3 OR FEVER; Start at 04:30 Zolpidem Tartrate (Ambien) 5 mg QHS PRN PO INSOMNIA; Start 06/28/16 at 04:30 Docusate Sodium (Colace) 100 mg Q12H PRN PO CONSTIPATION Last administered on 14:22; Admin Dose 100 MG; Start 06/28/16 at 04:30 Famotidine (Pepcid) 20 mg Q12 PO Last administered on 07/03/16 08:46; Admin Dose 20 MG; Start 06/28/16 at 09:00 Enoxaparin Sodium (Lovenox) 40 mg DAILY SC Last administered on 07/03/16 08:50 ; Admin Dose 40 MG; Start 06/28/16 at 09:00 Guaifenesin/ Dextromethorphan (Mucinex Dm) 1 tab BID PO Last administered on 08:47; Admin Dose 1 TAB; Start 06/28/16 at 09:00 Fish Oil (Fish Oil) 1,000 mg DAILY PO Last administered on 07/03/16 08:47; Admin Dose 1,000 MG; Start 06/28/16 at 09:00 Atorvastatin Calcium (Lipitor) 20 mg DAILY@21 PO Last administered on 20:33; Admin Dose 20 MG; Start 06/28/16 at 21:00 Lactobacillus Acidoph/Bulgaricus (Floranex) 1 tab TID PO Last administered on 13:22; Admin Dose 1 TAB; Start 06/28/16 at 13:00 Valsartan (Diovan) 80 mg BID PO Last administered on 07/03/16 08:46; Admin Dose 80 MG; Start 06/30/16 at 09:00 Tamsulosin HCl (Flomax) 0.4 mg HS PO Last administered on 07/02/16 20:33; Admin Dose 0.4 MG; Start 06/29/16 at 18:00 Finasteride (Proscar) 5 mg DAILY PO Last administered on 07/03/16 08:46; Admin Dose 5 MG; Start 06/30/16 at 13:00 Prednisone 40 mg 40 mg DAILY PO Last administered on 07/03/16 08:45; Admin Dose 40 MG; Start 07/02/16 at 09:00 Ertapenem/Sodium Chloride (Invanz/NS) 100 ml @ 200 mls/hr Q24H IVPB Last administered on 07/03/16 13:26; Admin Dose 200 MLS/HR; Start 07/01/16 at 14:30 Metoprolol Succinate (Toprol Xl) 25 mg BID PO Last administered on 07/03/16 08 :47; Admin Dose 25 MG; Start 07/01/16 at 15:00 IV Flush 10 ml 10 ml PRN PRN IV IV PROTOCOL; Start 07/01/16 at 17:00 Vancomycin HCl/ Sodium Chloride (Vancocin/NS) 150 ml @ 75 mls/hr Q24H IVPB Last administered on 07/02/16 21:30; Admin Dose 75 MLS/HR; Start 07/02/16 at 22 :00 Bumetanide 1 mg 1 mg DAILY PO Last administered on 07/03/16 08:46; Admin Dose 1 MG; Start 07/03/16 at 09:00 Magnesium Sulfate/ Dextrose (Magnesium Sulfate 1 Gm/D5W) 100 ml @ 100 mls/hr ONCE ONCE IVPB ; Start 07/03/16 at 14:00; Stop 07/03/16 at 14:59 RICHIE SWEET Jul 03, 2016 14:12
--- NOTE | 2016-07-03 14:15 | PDOCDIS ---
Discharge Instructions CONDITION Patient Condition: Stable HOME CARE INSTRUCTIONS: Special Diet: CARDIAC DIET. ACTIVITY: Activity Restrictions: Slowly Increase Activity FOLLOW UP/APPOINTMENTS Appointments Follow up with Cardiology next week Follow up with PCP within 1 week Follow up with Urology next week re urinary retention requiring linton catheter for now Follow up with PT and RN for IV abx RICHIE SWEET Jul 03, 2016 14:15
[2016-07-03] MEDS ORDERED: METO25TA7 PO (14:23)
[2016-07-03] MEDS ORDERED: FINA5TAB4 PO (14:23)
[2016-07-03] MEDS ORDERED: BUME1TAB18 PO (14:23)
[2016-07-03] MEDS ORDERED: PRED20 PO (14:23)
[2016-07-03] MEDS ORDERED: ERTA1VIA IV (14:23)
[2016-07-03] MEDS ORDERED: TAMS-14 PO (14:23)
[2016-07-03] MEDS ORDERED: ACID1TAB14 PO (14:23)
[2016-07-03] MEDS ORDERED: VALS80TA2 PO (14:23)
[2016-07-03] MEDS ORDERED: VANC750P5 IV (14:26)
== END 2016-07-03 18:55 | disposition home health service (06) | DRG 193 ==
LOC: E/R 02:04 → TEL 03:56
PROVIDERS: ADMIT Internal Medicine; ATTEND Internal Medicine
PROC: 02HV33Z Insertion of Infusion Device into Superior Vena Cava, Percutaneous Approach (ICD-10-PCS; principal; 2016-07-01)
DX: J18.9 Pneumonia, unspecified organism (principal); I50.23 Acute on chronic systolic (congestive) heart failure; E87.0 Hyperosmolality and hypernatremia; J44.1 Chronic obstructive pulmonary disease with (acute) exacerbation; I25.10 Atherosclerotic heart disease of native coronary artery without angina pectoris; D69.6 Thrombocytopenia, unspecified; I48.0 Paroxysmal atrial fibrillation; I35.0 Nonrheumatic aortic (valve) stenosis; I25.2 Old myocardial infarction; D64.9 Anemia, unspecified; R33.9 Retention of urine, unspecified; Z95.0 Presence of cardiac pacemaker; Z79.82 Long term (current) use of aspirin
CPT/HCPCS: 36569; 71010; 71020; 76937; 80048; 80053; 80202; 81001; 81003; 83605; 83690; 83735; 83880; 84100; 84443; 84484; 85025; 85610; 85730; 87040; 87086; 93005; 94640; 94644; 94664; 94760; 97116; 97162; 97530; A4310; J0692; J1335; J1650; J2405; J2543; J2930; J3370; J3475; J7030; J7050; J7512

== ENCOUNTER 2016-08-11 13:37 | Inpatient (IN) | payer OTHER, MEDICAID ==
[~2016-08-11] VITALS: Ht 162.6 cm; Wt 73.0 kg
[2016-08-11] VITALS (9 sets, daily range): BP systolic 81–111; BP diastolic 53–65; PULSE 124–142; RESP 13–23; TEMP 98; Ht 162.6 cm; Wt 73.0 kg
[~2016-08-11 13:37] MED LIST changes: +ACID1TAB14 PO; -AMLO5TAB4 PO; +BUME1TAB18 PO; +ERTA1VIA IV; +FINA5TAB4 PO; -FURO40TA4 PO; -HYD25 PO; +METO25TA7 PO; +PRED20 PO; +TAMS-14 PO; -VALS160T20 PO; +VALS80TA2 PO; +VANC750P5 IV
--- NOTE | 2016-08-11 13:45 | ERA ---
ER Documentation Chief Complaint Date/Time DATE: 08/11/16 TIME: 13:43 Chief Complaint Dizziness HPI The patient is a 81-year-old male, presenting to the ER because of acute dizziness for the last 2 hours prior to arrival, acute on chronic cough, acute on chronic dyspnea. He denies fever, chills, neck pain, chest pain with exertion or vomiting or diaphoresis, abdominal pain, vomiting, dysuria, diarrhea. He does use 2 L nasal cannula as needed Past medical history: Hypertension, BPH, dyslipidemia, history of TIA, COPD, CAD , cardiomyopathy, history of CHF Past surgical history: Aortic valve replacement, pacemaker, indwelling Arteaga catheter ROS All systems reviewed and are negative except as per history of present illness. Medications Home Meds Active Scripts Metoprolol Succinate* (Toprol XL*) 25 Mg Tab.sr.24h, 25 MG PO BID for 30 Days, 3 Refills Prov:KEE,NBrandenREJICANDELARIO Bhanu 07/03/16 Valsartan* (Diovan*) 80 Mg Tablet, 80 MG PO BID for 30 Days, TAB 3 Refills Prov:Rico SWEETBrandenREJICANDELARIO Drummond 07/03/16 Tamsulosin Hcl* (Flomax*) 0.4 Mg Cap.er.24h, 0.4 MG PO HS for 30 Days, CAP 3 Refills Prov:KEE,RICHIE Drummond 07/03/16 Lactobacillus Acidoph/Bulgaricus* (Floranex*) 1 Each Tablet, 1 TAB PO TID for 30 Days, TAB 3 Refills Prov:KEE,RICHIE Drummond 07/03/16 Finasteride* (Finasteride*) 5 Mg Tablet, 5 MG PO DAILY for 30 Days, TAB 3 Refills Prov:KEE,NDIANA Drummond 07/03/16 Reported Medications Albuterol Sulfate* (Proair HFA*) 8.5 Gm Hfa.aer.ad, 2 PUFF INH Q4H Y for WHEEZING AND SOB, #1 INHALER 05/23/16 Ondansetron Hcl* (Ondansetron Hcl*) 4 Mg Tablet, 4 MG PO Q6H Y for NAUSEA, TAB 05/23/16 Pantoprazole* (Pantoprazole*) 40 Mg Tablet.dr, 40 MG PO DAILY, TAB 05/23/16 Guaifenesin/Dextromethorphan (Mucinex Dm ER 1,200-60 mg Tab) 1 Each Tbmp.12hr, 1 EACH PO BID, TAB 05/23/16 Ferrous Sulfate* (Ferrous Sulfate*) 325 Mg Tabec, 325 MG PO BID, TAB 05/23/16 Guaifenesin-Dextromethorphan* (Robitussin* DM) 100MG/10MG/5ML Syrup, 10 ML PO Q4H Y for COUGH, ML 05/23/16 Oxycodone Hcl-Acetaminophen* (Oxycodone Hcl-Acetaminophen*) 10-325 Mg Tablet, 1 TAB PO Q6 Y for PAIN, TAB 12/25/15 Gabapentin* (Gabapentin*) 300 Mg Capsule, 300 MG PO TID, #90 CAP 12/25/15 Albuterol Sulfate* (Albuterol Sulfate* Neb) 0.083%-3 Ml Neb, 2.5 MG NEB BID Y for WHEEZING AND SOB, EA 04/11/15 Tiotropium [place]* (Spiriva*) 18 Mcg Cap.w.dev, 1 INH IH DAILY, EA 02/02/15 Clopidogrel Bisulfate* (Clopidogrel Bisulfate*) 75 Mg Tablet, 75 MG PO DAILY, TAB 11/04/14 Montelukast Sodium* (Montelukast Sodium*) 10 Mg Tablet, 10 MG PO HS, TAB 11/04/14 Turmeric Root Extract (TURMERIC) 500 Mg Capsule, 500 MG PO DAILY 09/06/14 Ubidecarenone (Coq-10) 100 Mg Capsule, 100 MG PO DAILY 09/06/14 Simvastatin (Simvastatin) 40 Mg Tablet, 40 MG PO HS, TAB 09/06/14 Salmeterol Xinaf-Fluticasone* (Advair*) 500/50 Diskus Inhaler, 1 INH INH BID, INH 09/06/14 [place]-3 Fatty Acids (Fish Oil Concentrate) 1 Cap Capsule, 1 CAP PO DAILY 09/06/14 Multivitamins* (Once Daily*) 1 Tab Tablet, 1 TAB PO DAILY, TAB 09/06/14 Fluticasone Propionate* (Flonase* Nasal) 50 Mcg/[place] - 16 Gm [place].susp, 1 SPRAY NASAL BID, SPRAY (TO EACH NOSTRIL) 09/06/14 Aspirin (Low Dose Aspirin) 81 Mg Tablet.dr, 81 MG PO DAILY 09/06/14 Alendronate Sodium* (Fosamax*) 70 Mg Tablet, 70 MG PO ON WEDNESDAY, TAB 09/06/14 Discontinued Scripts Vancomycin HCl in Dextrose 5 % (Vancomycin 750 mg/250 ml-D5w) 750 Mg/250 Ml Plast..bag, 750 MG IV DAILY for 8 Days Prov:RICHIE SWEET 07/03/16 Ertapenem Sodium (Invanz) 1 Gm Vial.port, 1 GM IV DAILY for 8 Days Prov:RICHIE SWEET 07/03/16 Prednisone (Prednisone) 20 Mg Tab, 40 MG PO DAILY for 10 Days, TAB Prov:RICHIE SWEET 07/03/16 Bumetanide* (Bumetanide*) 1 Mg Tablet, 1 MG PO DAILY for 30 Days, TAB 3 Refills Prov:RICHIE SWEET 07/03/16 Methocarbamol* (Robaxin*) 750 Mg Tablet, 750 MG PO TID, #20 TAB Prov:JEM MORRIS DO 03/09/16 Allergies Allergies: Coded Allergies: No Known Drug Allergies (Verified Allergy, Unknown, 08/11/16) PMhx/Soc History of Surgery: Yes (colostomy) Anesthesia Reaction: No Hx 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 Disorder: Yes (TIA (resolved 1997)) Hx Respiratory Disorders: Yes (copd, PNA) Hx Cardiac Disorders: Yes (aortic valve replacement ) Hx Psychiatric Problems: No Hx Miscellaneous Medical Probl: Yes (TIA, colostomy, COPD, PNA, aortic valve replacement, pacemaker) Hx Alcohol Use: Yes (1-2 beers/week, stopped 10 yrs ago ) Hx Substance Use: No Hx Tobacco Use: No Physical Exam Vitals Vital Signs Date Time Temp Pulse Resp B/P Pulse Ox O2 Delivery O2 Flow Rate FiO2 08/11/16 18:45 98.0 126 18 108/65 99 Nasal Cannula 2.0 08/11/16 18:00 127 18 86/53 99 Nasal Cannula 2.0 08/11/16 17:00 129 18 86/54 98 Nasal Cannula 2.0 08/11/16 16:00 97.7 132 17 90/56 98 Nasal Cannula 2.0 08/11/16 15:34 134 20 91/56 100 Nasal Cannula 3.0 08/11/16 15:02 140 20 96 Nasal Cannula 2.0 08/11/16 15:00 141 18 90/56 100 Nasal Cannula 3.0 08/11/16 13:50 Nasal Cannula 3 08/11/16 13:50 98.1 144 20 72/54 91 Physical Exam Const: Mild acute respiratory distress. Head: Atraumatic. Eyes: Normal Conjunctiva. ENT: Normal External Ears, Nose and Mouth. Neck: Full range of motion. No meningismus. Resp: Bilateral expiratory wheezes Cardio: Regular but tachycardic Abd: Soft, non distended, normal bowel sounds, non tender. Skin: No petechiae or rashes. Back: No midline or flank tenderness. Ext: Extremity ecchymosis, no calf tenderness Neur: Awake and alert. No focal deficit Psych: Normal Mood and Affect. Result Diagram: 08/11/16 1415 08/11/16 1415 Results 24 hrs Laboratory Tests Test 08/11/16 14:10 08/11/16 14:15 Urine Bacteria MANY Urine Bilirubin NEGATIVE Urine Clarity CLOUDY Urine Coarse Granular Casts FEW Urine Color LT. YELLOW Urine Glucose NEGATIVE% Urine Hemoglobin 1+ Urine Ketones TRACE Urine Leukocyte Esterase 1+ Urine Microscopic RBC 2-5/HPF Urine Microscopic WBC >200/HPF Urine Nitrite NEGATIVE Urine Specific [place] >=1.030 Urine Total Protein 1+ Urine Transitional Epithelial Cells FEW Urine Urobilinogen 0.2 E.U./dL Urine pH 6.0 Activated Partial Thromboplast Time 42.4Sec Alanine Aminotransferase (ALT/SGPT) 28IU/L Albumin 2.8g/dl Albumin/Globulin Ratio 0.82 Alkaline Phosphatase 63IU/L Anion Gap 13 Aspartate Amino Transf (AST/SGOT) 24IU/L Basophils # 0.010^3/ul Basophils % 0.1% Blood Urea Nitrogen 19mg/dl Calcium Level 8.0mg/dl Carbon Dioxide Level 34mmol/L Chloride Level 99mmol/L Creatinine 0.93mg/dl Direct Bilirubin 0.00mg/dl Eosinophils # 0.210^3/ul Eosinophils % 2.1% Globulin 3.40g/dl Glucose Level 62mg/dl Hematocrit 26.1% Hemoglobin 8.1g/dl INR International Normalized Ratio 1.15 Indirect Bilirubin 0.3mg/dl Lactic Acid Level 1.0mmol/L Lymphocytes # 2.110^3/ul Lymphocytes % 28.4% Magnesium Level 1.6mg/dl Mean Corpuscular Hemoglobin 30.2pg Mean Corpuscular Hemoglobin Concent 31.0g/dl Mean Corpuscular Volume 97.4fl Mean Platelet Volume 10.2fl Monocytes # 0.510^3/ul Monocytes % 7.5% Neutrophils # 4.210^3/ul Neutrophils % 58.6% Nucleated Red Blood Cells # 0.010^3/ul Nucleated Red Blood Cells % 0.0/100WBC Platelet Count 10977^3/UL Potassium Level 4.1mmol/L Prothrombin Time 14.7Sec Prothrombin Time Ratio 1.1 Red Blood Count 2.6810^6/ul Red Cell Distribution Width 17.6% Sodium Level 142mmol/L Total Bilirubin 0.3mg/dl Total Protein 6.2g/dl Troponin I 0.740ng/ml White Blood Count 7.210^3/ul Current Medications Medications (Trade) Dose Ordered Sig/Gregg Route PRN Reason Start Time Stop Time Status Last Admin Dose Admin Levalbuterol (Xopenex Neb) 1.25 mg ONCE ONCE HHN 08/11/16 14:00 08/11/16 14:01 DC 08/11/16 14:30 Ipratropium [place] 0.5 mg 0.5 mg ONCE ONCE HHN 08/11/16 14:00 08/11/16 14:01 DC 08/11/16 14:30 Sodium Chloride 2,250 ml @ 2,250 mls/hr BOLUS X1 ONCE IV 08/11/16 15:00 08/11/16 15:59 DC 08/11/16 14:51 Piperacillin Sod/ Tazobactam Sod 100 ml @ 200 mls/hr ONCE ONCE IVPB 08/11/16 15:30 08/11/16 15:59 DC 08/11/16 16:07 Vancomycin HCl (Vancocin) 250 ml @ 125 mls/hr ONCE IVPB 08/11/16 15:30 08/11/16 17:29 DC 08/11/16 17:22 Aspirin (Aspirin) 325 mg ONCE ONCE PO 08/11/16 16:00 08/11/16 16:01 DC 08/11/16 16:07 Magnesium Oxide 800 mg 800 mg ONCE ONCE PO 08/11/16 16:00 08/11/16 16:09 DC Magnesium Sulfate 50 ml @ 25 mls/hr ONCE ONCE IVPB 08/11/16 16:30 08/11/16 18:29 DC 08/11/16 17:21 Amiodarone HCl/ Dextrose (Cordarone Iv/ D5W) 500 ml @ 0 mls/hr Q0M IV 08/11/16 17:00 08/12/16 16:59 Aspirin (Halfprin) 81 mg DAILY PO 08/12/16 09:00 UNV Clopidogrel Bisulfate (plaVIX) 75 mg DAILY PO 08/12/16 09:00 UNV Ferrous Sulfate (Ferrous Sulfate (Ec)) 325 mg BID PO 08/11/16 21:00 UNV Finasteride (Proscar) 5 mg DAILY PO 08/12/16 09:00 UNV Fluticasone Propionate (Flonase 0.05% Nasal) 1 spray BID NASAL 08/11/16 21:00 UNV Gabapentin (Neurontin) 300 mg TID PO 08/11/16 21:00 UNV Guaifenesin/ Dextromethorphan (Robitussin Dm Liquid Cup) 10 ml Q4H PRN PO COUGH 08/11/16 17:00 UNV Lactobacillus Acidoph/Bulgaricus (Floranex) 1 tab TID PO 08/11/16 21:00 UNV Montelukast Sodium (Singulair) 10 mg HS PO 08/11/16 21:00 UNV Multivitamins Therapeutic (Theragran) 1 tab DAILY PO 08/12/16 09:00 UNV Oxycodone/ Acetaminophen (Endocet (10/ 325)) 1 tab Q6 PRN PO PAIN 08/11/16 17:00 UNV Pantoprazole (Protonix Tab) 40 mg DAILY PO 08/12/16 09:00 UNV Salmeterol Xinafoate/ Fluticasone (Advair 500/50 Diskus) 1 inh BID INH 08/11/16 21:00 UNV Tamsulosin HCl (Flomax) 0.4 mg HS PO 08/11/16 21:00 UNV Tiotropium [place] (Spiriva) 1 inh DAILY INH 08/12/16 09:00 UNV Miscellaneous Information 1 each BID PO 08/11/16 21:00 UNV Miscellaneous Information 1 cap DAILY PO 08/12/16 09:00 UNV Miscellaneous Information 40 mg 40 mg HS PO 08/11/16 21:00 UNV Sodium Chloride (NS) 1,000 ml @ 80 mls/hr [id number] IV 08/11/16 16:49 UNV IV Flush (NS 3 ml) 3 ml PER PROTOCOL IV 08/11/16 17:00 UNV Ondansetron HCl (Zofran Inj) 4 mg Q6H PRN IV NAUSEA AND/OR VOMITING 08/11/16 17:00 UNV Nitroglycerin (Nitroglycerin (Sl Tab) 0.4 Mg) 1 tab Q5M PRN SL CHEST PAIN 08/11/16 17:00 UNV Acetaminophen (Tylenol Tab) 650 mg Q6H PRN PO PAIN LEVEL 1-3 OR FEVER 08/11/16 17:00 UNV Morphine Sulfate (morphine) 2 mg Q4H PRN IV PAIN LEVEL 7-10 08/11/16 17:00 UNV Docusate Sodium (Colace) 100 mg Q12H PRN PO CONSTIPATION 08/11/16 17:00 UNV Magnesium Hydroxide (Milk Of Mag) 30 ml DAILY PRN PO CONSTIPATION 08/11/16 17:00 UNV Bisacodyl (Dulcolax Supp) 10 mg DAILY PRN OK CONSTIPATION 08/11/16 17:00 UNV Enoxaparin Sodium (Lovenox) 30 mg DAILY SC 08/12/16 09:00 UNV Vancomycin HCl VANCOMYCIN PER PHARMACY PER PROTOCOL XX 08/11/16 18:00 UNV Piperacillin Sod/ Tazobactam Sod (Zosyn 3.375gm/ 100 ml (Pmx)) 100 ml @ 200 mls/hr Q8 IVPB 08/11/16 22:00 UNV Levalbuterol (Xopenex Neb) 0.63 mg Q8H RESP THERAPY HHN 08/12/16 00:00 UNV Levalbuterol 0.63 mg 0.63 mg Q4H RESP THERAPY PRN HHN WHEEZING AND RESP DISTRESS 08/11/16 18:00 UNV Sodium Chloride 250 ml @ 250 mls/hr Q1H ONCE IV 08/11/16 18:30 08/11/16 19:29 UNV Magnesium Sulfate (Magnesium Sulfate 2 Gm/50 ml) 50 ml @ 25 mls/hr ONCE ONCE IVPB 08/11/16 18:30 08/11/16 20:29 UNV Procedures/MDM EKG: Read by emergency physician at 2:35 PM Rate/Rhythm: Sinus tachycardia 130 beats/min QRS, ST, T-waves: No ST elevation, no T inversion, LAD, left bundle branch block Impression: Abnormal EKG EKG: Read by emergency physician at 4:22 PM Rate/Rhythm: Sinus tachycardia 126 beats/min QRS, ST, T-waves: No ST elevation, no T inversion, LAD, left bundle branch block Impression: Abnormal EKG [place] [id number] Radiology Main Line: [phone] DIAGNOSTIC IMAGING REPORT Patient: RENETTA WALSH : 1935 Age: 81 Sex: M MR #: [id number] DOS: 08/11/16 1346 Ordering MD: JOSEFINA GILL MD Location: E/R Room/Bed: PROCEDURE: XR Chest. CLINICAL INDICATION: Sepsis TECHNIQUE: Single frontal chest x-ray. COMPARISON: 07/01/2016 FINDINGS: There is a left-sided dual chamber cardiac pacer / AICD in place. . Low lung volumes with cardiomegaly and hilar vascular congestion is unchanged. Mild bilateral perihilar edema or infiltrates are unchanged. There is bibasilar atelectasis.. Calcific atherosclerosis of the aorta is present.. The osseous structures are intact. Osteoarthritis of the right shoulder joint is noted. IMPRESSION: Cardiomegaly with hilar vascular congestion and mild perihilar edema. Low lung volumes with bibasilar atelectasis. Left-sided cardiac pacer in place.. RPTAT: TT .Tremaine Moreno MD, Date Time Electronically viewed and signed by .Tremaine Moreno MD, MD on 08/11/2016 15:05 .L/ CC: JOSEFINA GILL MD MEDICAL MAKING DECISION: The patient is a 81-year-old male, resenting to the ER because of acute wide complex tachycardia, acute COPD exacerbation, acute cystitis, acute elevated troponin, acute hypomagnesemia. He was treated with Atrovent 0.5 mg, Xopenex No. 2 5 mg for wheezing, normal saline 30 mL/kg IV, Zosyn IV, vancomycin IV for acute cystitis, Magnesium IV for acute hypomagnesemia, aspirin 325 mg p.o. for acute elevated troponin, 1 amp D50 IV for acute hypoglycemia. He was started on amiodarone 1 mg/min after consulting with the admitting physician Dr Sweet consulted with the engineering systems analyst Dr Peralta Critical Care: Time: 35 minutes excluding all billable procedures. Treatments/Evaluations: Close monitoring and treatment of unstable vital signs, cardiorespiratory, and neurologic status, while maintaining tight balance of fluid, respiratory, and cardiac interventions. Departure Diagnosis: Primary Impression: Wide-complex tachycardia Additional Impressions: COPD with acute exacerbation UTI (urinary tract infection) Elevated troponin Hypomagnesemia Anemia Hypoglycemia Condition: Critical Comments I discussed the findings with the patient. I discussed the patient with his physician Dr. Sweet who was made aware of the lab, the treatment, the patient condition. The patient is admitted to ICU at 4:05 PM JOSEFINA GILL MD Aug 11, 2016 13:45
[2016-08-11] MEDS ORDERED: IPRATROPIUM (NEB) 0.5 MG/2.5 ML AMP HHN ONE (14:00)
[2016-08-11] MEDS ORDERED: LEVALBUTEROL (NEB) 1.25 MG/0.5 ML AMP HHN ONE (14:00)
[2016-08-11 14:35] LABS: ADD SCAN DIFF NO
[2016-08-11 14:41] LABS: BASOPHILS % 0.1 % (0.0-2.0); EOSINOPHILS # 0.2 10^3/ul (0.0-0.5); EOSINOPHILS % 2.1 % (0.0-7.0); HEMATOCRIT 26.1 % (42.0-52.0); HEMOGLOBIN 8.1 g/dl (14.0-18.0); LYMPHOCYTES # 2.1 10^3/ul (0.8-2.9); LYMPHOCYTES % 28.4 % (15.0-51.0); MEAN CORPUSCULAR HEMOGLOBIN 30.2 pg (29.0-33.0); MEAN CORPUSCULAR VOLUME 97.4 fl (82.0-101.0); MEAN PLATELET VOLUME 10.2 fl (7.4-10.4); MONOCYTE # 0.5 10^3/ul (0.3-0.9); MONOCYTES % 7.5 % (0.0-11.0); NEUTROPHIL # 4.2 10^3/ul (1.6-7.5); NEUTROPHILS % 58.6 % (39.0-77.0); PLATELET COUNT 156 10^3/UL (140-415); RED BLOOD COUNT 2.68 10^6/ul (4.70-6.10); RED CELL DISTRIBUTION WIDTH 17.6 % (11.5-14.5); WHITE BLOOD COUNT 7.2 10^3/ul (4.8-10.8)
[2016-08-11 14:48] LABS: ALBUMIN 2.8 g/dl (3.3-4.9); POTASSIUM 4.1 mmol/L (3.5-5.1)
[2016-08-11 14:49] LABS: INR 1.15; PROTIME 14.7 Sec (12.2-14.2); PT RATIO 1.1
[2016-08-11 14:50] LABS: ADD UMIC YES; URINE BILIRUBIN (Dip) NEGATIVE (NEGATIVE); URINE BLOOD (Dip) 1+ (NEGATIVE); URINE COLOR LT. YELLOW (YELLOW); URINE GLUCOSE (Dip) NEGATIVE (NEGATIVE); URINE KETONES (Dip) TRACE (NEGATIVE); URINE LEUKOCYTE ESTERASE (Dip) 1+ (NEGATIVE); URINE NITRITE (Dip) NEGATIVE (NEGATIVE); URINE TOTAL PROTEIN (Dip) 1+ (NEGATIVE); URINE UROBILINOGEN (Dip) 0.2 E.U./dL (0.1-1.0)
[2016-08-11 14:50] LABS: PARTIAL THROMBOPLASTIN TIME 42.4 Sec (25.0-35.0)
[2016-08-11 14:51] LABS: ALBUMIN/GLOBULIN RATIO 0.82; BILIRUBIN,INDIRECT 0.3 mg/dl (0-1.1); BILIRUBIN,TOTAL 0.3 mg/dl (0.2-1.3); CREATININE 0.93 mg/dl (0.61-1.24); TOTAL PROTEIN 6.2 g/dl (6.1-8.1)
[2016-08-11 14:52] LABS: MAGNESIUM 1.6 mg/dl (1.7-2.5)
[2016-08-11] MEDS ORDERED: SOD CHLORIDE 0.9% 2,250 ML IV ONE (15:00)
--- NOTE | 2016-08-11 15:05 | RADRPT ---
PROCEDURE: XR Chest. CLINICAL INDICATION: Sepsis TECHNIQUE: Single frontal chest x-ray. COMPARISON: 07/01/2016 FINDINGS: There is a left-sided dual chamber cardiac pacer / AICD in place. . Low lung volumes with cardiomeg yany and hilar vascular congestion is unchanged. Mild bilateral perihilar edema or infiltrates are u nchanged. There is bibasilar atelectasis.. Calcific atherosclerosis of the aorta is present.. The osseous structures are intact. Osteoarthritis of the right shoulder joint is noted. IMPRESSION: Cardiomegaly with hilar vascular congestion and mild perihilar edema. Low lung volumes with bibasilar atelectasis. Left-sided cardiac pacer in place.. RPTAT: TT .Tremaine Moreno MD, Date Time Electronically viewed and signed by .Tremaine Moreno MD, on 08/11/2016 15:05 .L/
[2016-08-11 15:20] LABS: BACTERIA,URINE MANY
[2016-08-11 15:21] LABS: TRANSITIONAL EPI CELLS,URINE FEW
[2016-08-11 15:22] LABS: TROPONIN-I 0.74 ng/ml (0.00-0.12)
[2016-08-11] MEDS ORDERED: PIPER-TAZO 3.375 GM IV (PMX) 100 ML IVPB ONE (15:30)
[2016-08-11] MEDS ORDERED: VANCOMYCIN 1 GM (PMX) 250 ML IVPB SCH (15:30)
[2016-08-11] MEDS ORDERED: MAGNESIUM OXIDE 400 MG TAB PO ONE (16:00)
[2016-08-11] MEDS ORDERED: ASPIRIN 325 MG TAB PO ONE (16:00)
[2016-08-11] MEDS ORDERED: MAGNESIUM SULFATE 2 GM/50 ML 50 ML IVPB ONE ×2 (16:30→18:30)
[2016-08-11] MEDS ORDERED: NITROGLYCERIN (SL) 0.4 MG TAB SL PRN (17:00)
[2016-08-11] MEDS ORDERED: AMIODARONE 900 MG in DEXTROSE 5% 482 ML IV SCH (17:00)
[2016-08-11] MEDS ORDERED: BISACODYL 10 MG SUPP PR PRN (17:00)
[2016-08-11] MEDS ORDERED: morphine 2 MG INJ IV PRN (17:00)
[2016-08-11] MEDS ORDERED: GUAIFENESIN/DM 5ML CUP PO PRN (17:00)
[2016-08-11] MEDS ORDERED: DOCUSATE SODIUM 100 MG CAP PO PRN (17:00)
[2016-08-11] MEDS ORDERED: MAGNESIUM HYDROXIDE 30ML CUP PO PRN (17:00)
[2016-08-11] MEDS ORDERED: NACL 0.9% 3 ML SYG IV SCH (17:00)
[2016-08-11] MEDS ORDERED: VANCOMYCIN IV PER PHARMACY XX SCH (18:00)
[2016-08-11] MEDS ORDERED: SOD CHLORIDE 0.9% 250 ML IV ONE ×2 (18:30→23:30)
[2016-08-11] MEDS ORDERED: DEXTROSE 50% 50 ML SYRINGE IV STA (19:13)
[2016-08-11] MEDS ORDERED: DEXTROSE 50% 50 ML SYRINGE ONE (19:17)
--- NOTE | 2016-08-11 20:20 | HP ---
DATE OF ADMISSION: 08/11/2016 PRIMARY CARE PHYSICIAN: Dr. Lei CHIEF COMPLAINT ON ADMISSION: Dizziness and wheezing, shortness of breath. HISTORY OF PRESENT ILLNESS: This is an 81-year-old male with a history of severe COPD; coronary art andrzej disease, diffuse; ischemic cardiomyopathy, status post biventricular pacer; multiple episodes of healthcare-associated pneumonia; easy bruising; easy bleeding who presented to the emergency depart ment with complaint of dizziness and wheezing. The patient was recently discharged from [facility], where he was admitted with healthcare-associated pneumonia, subsequently [facility] and [facility] approximately 4 days ago. F or the past 3 days after discharge, he was doing very well at home, no complaints. However, this mo rning he woke up dizzy with some nausea and also feeling wheezy. He did take all his medication inc luding his blood pressure medication. He was not feeling any better. Therefore, he was brought to the emergency department by his partner. In the emergency department, he was found to be hypotensiv e with systolic blood pressures in the 70s, tachycardic with heart rate in the 150s to 160s, seems t o be sinus tachycardia. The patient is known to have arrhythmias. I have discussed with the ER [facility]. His magnesium is low at 1.6, will give him magnesium, start amiodarone drip. Part of his w orkup, he had a troponin checked which was slightly elevated at 0.7. We will trend it. I did discu ss the case with Dr. Peralta. Will keep the patient on his antiplatelet therapy for now, and he will see the patient in the morning. He denies any fevers, chills. He has a chronic cough which is sta ble. He actually denies shortness of breath per se. He is currently on 2 L nasal cannula and stabl e, which is his outpatient oxygen requirement. He noted that this morning within the past few hours , his lower extremity became very red. It is edematous and warm. It seems to be consistent with po ssible cellulitis. The rest of his laboratory data is at baseline. ALLERGIES: NO KNOWN ALLERGIES. PAST MEDICAL HISTORY: 1. Multiple episodes of healthcare-associated pneumonia. The last one was approximately a couple w eeks ago. 2. Status post non-ST elevation DC. 3. Status post biventricular pacer. 4. Atrial fibrillation, atrial flutter. 5. Chronic obstructive pulmonary disease, oxygen dependent, 2 L nasal cannula. 6. Chronic kidney disease. 7. Chronic anemia. 8. Chronic back pain. 9. Hypertension. 10. Congestive heart failure, ischemic cardiomyopathy, systolic dysfunction. Apparently, however, there is some recovery of his ejection fraction. The latest one in [place] came back 50%. 11. Temporal arteritis. 12. Previous transient ischemic attack. 13. Hyperlipidemia. 14. Status post transcatheter aortic valve placement approximately 2 years ago. 15. Status post fall with rib fractures, stable. PAST SURGICAL HISTORY: 1. Status post transcatheter aortic valve replacement done approximately 2 years ago. 2. Status post biventricular pacer placement a few months ago. SOCIAL HISTORY: The patient lives with his partner in the [place]. He has been a little more depend ent with ADLs lately with his multiple hospitalizations. He denies any current tobacco use, alcohol , illicit drug use. REVIEW OF SYSTEMS: As per HPI. The patient denies any chest pain again. He does have a Arteaga cath eter currently. He has followed up with urologist, and he is supposed to keep it in place. OUTPATIENT MEDICATIONS: 1. Albuterol nebulizer b.i.d. as needed for wheezing or shortness of breath. 2. Albuterol, ProAir HFA 2 puffs inhaled q.4. hours p.r.n. 3. Flomax 0.4 mg p.o. at bedtime. 4. Spiriva 1 puff inhaled daily. 5. Plavix 75 mg p.o. daily. 6. Ferrous sulfate 325 mg p.o. b.i.d. 7. Toprol-XL 25 mg p.o. b.i.d. 8. Shirley-3 one tablet p.o. daily. 9. Simvastatin 40 mg p.o. at bedtime. 10. Diovan 80 mg p.o. b.i.d. 11. Aspirin 81 mg p.o. daily. 12. Gabapentin 300 mg p.o. t.i.d. 13. Percocet 10/325 one tablet p.o. q.6 hours p.r.n. 14. Guaifenesin 10 mg p.o. q.4 hours p.r.n. cough. 15. Mucinex 1 tablet p.o. b.i.d. 16. Singulair 10 mg p.o. at bedtime. 17. Advair 500/50 one puff inhaled b.i.d. 18. Floranex 1 tablet p.o. t.i.d. 19. Zofran 4 mg p.o. q.6 hours p.r.n. nausea. 20. Pantoprazole 40 mg p.o. daily. 21. Multivitamin 1 tablet p.o. daily. 22. Fosamax 70 mg p.o. weekly on Wednesdays. 23. Finasteride 5 mg p.o. daily. 24. Turmeric 500 mg p.o. daily. 25. Coenzyme-Q 100 mg p.o. daily. PHYSICAL EXAMINATION: VITAL SIGNS: Temperature is 98.1, heart rate of 134, respiratory rate 20, blood pressure 91/56. Th e patient is saturating 100% on 3 L nasal cannula but will go to 96% on 2 L nasal cannula. GENERAL: He is alert and oriented x4. He is not in acute distress currently. He seems to be close to his baseline. HEENT: Pupils are equally round and reactive to light. Extraocular muscles are intact. Anicteric sclerae. NECK: No JVD, no thyromegaly noted. HEART: Rate tachycardic currently. He is status post aortic valve replacement. LUNGS: He does have some expiratory wheezes scattered bilaterally, some rhonchi that cleared up wit h cough. ABDOMEN: Soft, nontender, nondistended. Bowel sounds are present. EXTREMITIES: Bilateral lower extremity erythema, warmth and some edema, at least +1 to +2 noted. H e does not have tenderness to palpation there. NEUROLOGIC: Grossly intact. LABORATORY DATA: White blood cell count is 7.2, hemoglobin 8.1, hematocrit 26.1, platelet count of 156. Chemistry with a sodium of 142, potassium 4.1, chloride 99, bicarbonate 34, BUN 19, creatinine 0.93, glucose of ____, calcium 8.0, magnesium 1.6. Lactic acid is 1.0. Troponin came back at 0.74 . Albumin 2.8, total protein 6.2. Liver function testing within normal. Urinalysis: 1+ leukocyte esterase and cloudy. The patient does have a chronic Arteaga catheter. INR is 1.15, PTT 42.4, PT of 14.7. ELECTROCARDIOGRAM: Sinus tachycardia with a wide complex, but the patient does have a left bundle b ranch which is chronic. His heart rate is down to 120s from the 150s. RADIOLOGICAL DATA: Chest x-ray today is showing low volume with bibasilar atelectasis, cardiomegaly with hilar vascular congestion and mild perihilar edema, left-sided pacer in place. ASSESSMENT AND PLAN: This is an 81-year-old male with: 1. Episodes of dizziness and wheezing, found to be hypotensive and tachycardic on arrival that coul d be either related to hypovolemia versus early infection given his lower extremity erythema. He wi ll be placed on IV fluid. Apparently his ejection fraction has improved to 50% according to Dr. Raudel maldonado. Will continue antibiotics with Zosyn and vancomycin. Follow up additional workup. He has bee n started on amiodarone, and magnesium is being repleted. 2. Coronary artery disease with ischemic cardiomyopathy, status post transcatheter aortic valve rep lacement, status post biventricular pacer placement. Continue current cardiac medications including aspirin and Plavix. Will hold off his beta blockers at this time. Will discontinue his valsartan given the hypotensive episode. Amiodarone has been started given the tachycardia with a left bundle branch block which is not very specific. The patient does have a history of atrial fibrillation an d atrial flutter. 3. Chronic kidney disease. Renal function is actually stable. 4. Hypomagnesemia. Replete. 5. Chronic obstructive pulmonary disease. Continue nebulizer treatment, Advair and Spiriva at this time. He is on 2 L nasal cannula, which is his baseline oxygen requirement. There is no need to a dd steroids at this time. 6. Bilateral lower extremity erythema concerning for cellulitis given his presentation. Continue v ancomycin and Zosyn. 7. Hypothyroidism. Continue home medication. 8. Temporal arteritis, stable. 9. Urinary retention. He is Arteaga catheter dependent. Currently the urinalysis is slightly positi ve. Will follow up on the urine culture. If needed, the Arteaga catheter will be changed. For now, he seems to be fairly stable. 10. Hypertension. The patient currently hypotensive. Therefore, all the medications are held. Co ntinue IV fluids. Will give him small boluses as needed. 11. Prophylaxis. Lovenox for DVT prophylaxis since the patient cannot wear SCDs at this point and Protonix for GI prophylaxis. DISPOSITION: The patient is admitted to telemetry. Will trend his cardiac enzymes and continue him on amiodarone drip, IV antibiotics, IV fluids. Dictated By: RICHIE WEBSTER/LATISHA Conf#: [id number] DID#: [id number]
[2016-08-11 20:58] LABS: CK-MB 2.55 ng/ml (0.0-2.4); TROPONIN-I 0.478 ng/ml (0.00-0.12)
[2016-08-11] MEDS: SOD CHLORIDE 0.9% 1,000 ML IV SCH (21:37)
[2016-08-11] MEDS: PIPER-TAZO 3.375 GM IV (PMX) 100 ML IVPB SCH (22:14)
[2016-08-11] MEDS: FERROUS SULFATE (EC) 325 MG TAB PO SCH (22:39)
[2016-08-11] MEDS: TAMSULOSIN (SR) 0.4 MG CAP PO SCH (22:40)
[2016-08-11] MEDS: LACTOBACILLUS CHEW TAB PO SCH (22:41)
[2016-08-11] MEDS: GABAPENTIN 300 MG CAP PO SCH (22:42)
[2016-08-11] MEDS: MONTELUKAST 10 MG TAB PO SCH (22:43)
[2016-08-11] MEDS: ATORVASTATIN 20 MG TAB PO SCH (22:44)
[2016-08-11] MEDS: SALMETEROL/FLUTICASONE 500/50 INHA INH SCH (22:45)
[2016-08-11] MEDS: FLUTICASONE 0.05% 16 GM NAS SPRAY NASAL SCH (22:45)
[2016-08-11] MEDS: LEVALBUTEROL (NEB) 0.63 MG/3 ML AMP HHN SCH (23:55)
[2016-08-12] VITALS (45 sets, daily range): BP systolic 72–121; BP diastolic 41–80; PULSE 119–139; RESP 16–35
[2016-08-12 03:41] LABS: CK-MB 3.02 ng/ml (0.0-2.4)
[2016-08-12 03:42] LABS: TROPONIN-I 0.295 ng/ml (0.00-0.12)
[2016-08-12] MEDS: SOD CHLORIDE 0.9% 1,000 ML IV SCH ×2 (05:19→18:30)
[2016-08-12] MEDS: PIPER-TAZO 3.375 GM IV (PMX) 100 ML IVPB SCH ×3 (05:40→22:47)
[2016-08-12 06:45] LABS: ADD SCAN DIFF NO
[2016-08-12 06:47] LABS: BASOPHILS % 0.2 % (0.0-2.0); EOSINOPHILS # 0.2 10^3/ul (0.0-0.5); HEMOGLOBIN 8.2 g/dl (14.0-18.0); LYMPHOCYTES # 1.5 10^3/ul (0.8-2.9); LYMPHOCYTES % 28.4 % (15.0-51.0); MEAN CORPUSCULAR HEMOGLOBIN 30.5 pg (29.0-33.0); MEAN CORPUSCULAR HGB CONC 30.4 g/dl (32.0-37.0); MEAN CORPUSCULAR VOLUME 100.4 fl (82.0-101.0); MEAN PLATELET VOLUME 10.4 fl (7.4-10.4); MONOCYTE # 0.3 10^3/ul (0.3-0.9); MONOCYTES % 5.5 % (0.0-11.0); NEUTROPHIL # 3.1 10^3/ul (1.6-7.5); NEUTROPHILS % 59.8 % (39.0-77.0); PLATELET COUNT 140 10^3/UL (140-415); RED BLOOD COUNT 2.69 10^6/ul (4.70-6.10); RED CELL DISTRIBUTION WIDTH 17.5 % (11.5-14.5); WHITE BLOOD COUNT 5.3 10^3/ul (4.8-10.8)
[2016-08-12 07:02] LABS: ALBUMIN 2.6 g/dl (3.3-4.9)
[2016-08-12 07:03] LABS: POTASSIUM 4.2 mmol/L (3.5-5.1)
[2016-08-12 07:05] LABS: ALBUMIN/GLOBULIN RATIO 0.76; BILIRUBIN,INDIRECT 0.1 mg/dl (0-1.1); BILIRUBIN,TOTAL 0.1 mg/dl (0.2-1.3); CREATININE 0.84 mg/dl (0.61-1.24)
[2016-08-12 07:06] LABS: CALCIUM 7.5 mg/dl (8.4-10.2); MAGNESIUM 2.5 mg/dl (1.7-2.5)
[2016-08-12] MEDS: LEVALBUTEROL (NEB) 0.63 MG/3 ML AMP HHN SCH ×3 (08:50→23:26)
[2016-08-12] MEDS: GABAPENTIN 300 MG CAP PO SCH ×3 (09:00→20:32)
[2016-08-12] MEDS: MULTIVITAMINS THERAPEUTIC TAB PO SCH (10:13)
[2016-08-12] MEDS: TIOTROPIUM 18 MCG CAPSULE INHA DEV INH SCH (10:13)
[2016-08-12] MEDS: FINASTERIDE 5 MG TAB PO SCH (10:13)
[2016-08-12] MEDS: ASPIRIN (EC) 81 MG TAB PO SCH (10:13)
[2016-08-12] MEDS: FISH OIL 1,000 MG CAP PO SCH (10:13)
[2016-08-12] MEDS: PANTOPRAZOLE (EC) 40 MG TAB PO SCH (10:13)
[2016-08-12] MEDS: LACTOBACILLUS CHEW TAB PO SCH ×3 (10:13→20:31)
[2016-08-12] MEDS: CLOPIDOGREL 75 MG TAB PO SCH (10:13)
[2016-08-12] MEDS: GUAIFENESIN/DM (SR) TAB PO SCH ×2 (10:14→20:32)
[2016-08-12] MEDS: FERROUS SULFATE (EC) 325 MG TAB PO SCH ×2 (10:14→20:29)
[2016-08-12] MEDS: VANCOMYCIN 1 GM in NS 250 ML IVPB SCH (10:15)
[2016-08-12] MEDS: ENOXAPARIN 30 MG/0.3 ML SYG SC SCH (10:15)
[2016-08-12] MEDS: FLUTICASONE 0.05% 16 GM NAS SPRAY NASAL SCH ×2 (10:18→20:34)
[2016-08-12] MEDS: SALMETEROL/FLUTICASONE 500/50 INHA INH SCH ×2 (10:18→20:34)
--- NOTE | 2016-08-12 10:40 | PN ---
Date/Time of Note Date/Time of Note DATE: 08/12/16 TIME: 10:24 Assessment/Plan VTE Prophylaxis VTE Prophylaxis Intervention: SCD's Lines/Catheters IV Catheter Type (from Nrs): Peripheral IV Urinary Cath still in place: Yes Reason Cath still needed: other (indicate) (chronic linton catheter ) Assessment/Plan Assessment/Plan 81-year-old male with: 1. Hypotension, episodes of dizziness, hypotensive and tachycardic on arrival that could be either related to hypovolemia versus early infection given his lower extremity erythema BP better On IVF and holding BP meds off, apparently his ejection fraction has improved to 50% according to Dr. Peralta. On Amio for ? Afib/flutter overnight, repleted Mag overnight Continue antibiotics with Zosyn and vancomycin. 2. Coronary artery disease with ischemic cardiomyopathy, status post transcatheter aortic valve replacement, status post biventricular pacer placement. Elevated troponins, trending down and Dr Peralta to see Continue current cardiac medications including aspirin and Plavix. Hold off his beta blockers and Valsartan at this time. On Amiodarone with atrial fibrillation/atrial flutter. 3. Chronic kidney disease. Renal function stable. 4. Hypomagnesemia. Repleted 5. Chronic obstructive pulmonary disease. On 2L NC chronically Continue nebulizer treatment, Advair and Spiriva at this time. 6. Bilateral lower extremity erythema concerning for cellulitis given his presentation. Improving Continue vancomycin and Zosyn. 7. Hypothyroidism. Continue current meds. 8. Temporal arteritis, stable. 9. 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 UA positive and Urine culture with ? Pseudomonas. Change Linton today Continue current abx until culture back. 10. Hypertension. Currently hypotensive still, all BP medications held. Continue IV fluids. Giving small boluses as needed. Prophylaxis. Lovenox for DVT prophylaxis since the patient cannot wear SCDs at this point and Protonix for GI prophylaxis. DISPOSITION: In ICU because of hypotension and multiple end organ dysfunctions. On amiodarone drip, IV antibiotics, IV fluids. Cardiology follow up pending. Subjective 24 Hr Interval Summary Free Text/Dictation Patient remains clinically the same but BP still low and in A futter On Amio gtt and BP low Mag repleted and on IVF, euvolemic so far Afebrile and LE erythema better Linton to be changed as Urine cx positive with Pseudomonas PICC line placement today Exam/Review of Systems Vital Signs Vitals Vital Signs Date Time Temp Pulse Resp B/P Pulse Ox O2 Delivery O2 Flow Rate FiO2 08/12/16 06:30 127 18 90/52 99 08/12/16 06:00 Nasal Cannula 2.0 08/12/16 04:00 97.8 Intake and Output 08/11/16 08/11/16 08/12/16 15:00 23:00 07:00 Intake Total 2496.8 ml 1078.4 ml Output Total 150 ml 230 ml Balance 2346.8 ml 848.4 ml Exam Constitutional: alert, frail, oriented Respiratory: diminished breath sounds (bilaterally chronic ), normal air movement, other (slightly congested ) Cardiovascular: irregular rhythm (A flutter/ A fib ) Gastrointestinal: non-tender, soft Genitourinary - Male: other (chronic [place] catheter ) Musculoskeletal: swelling (better ) Extremities: edema (better ), normal pulses, other (erythma better but still warm, no tender) 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: [employer] II-XII intact, nl mental status, nl speech, other (baseline strength ) Results Result Diagram: 08/12/16 0549 08/12/16 0549 Results 24 hrs Laboratory Tests Test 08/11/16 14:10 08/11/16 14:15 08/11/16 20:10 08/11/16 22:15 Urine Bacteria MANY Urine Bilirubin NEGATIVE Urine Clarity CLOUDY H Urine Coarse Granular Casts FEW Urine Color LT. YELLOW Urine Glucose NEGATIVE Urine Hemoglobin 1+ H Urine Ketones TRACE Urine Leukocyte Esterase 1+ H Urine Microscopic RBC 2-5 Urine Microscopic WBC >200 Urine Nitrite NEGATIVE Urine Specific [place] >=1.030 H Urine Total Protein 1+ H Urine Transitional Epithelial Cells FEW Urine Urobilinogen 0.2 E.U./dL Urine pH 6.0 Activated Partial Thromboplast Time 42.4 H Alanine Aminotransferase (ALT/SGPT) 28 Albumin 2.8 L Albumin/Globulin Ratio 0.82 Alkaline Phosphatase 63 Anion Gap 13 Aspartate Amino Transf (AST/SGOT) 24 Basophils # 0.0 Basophils % 0.1 Blood Urea Nitrogen 19 Calcium Level 8.0 L Carbon Dioxide Level 34 H Chloride Level 99 Creatinine 0.93 Direct Bilirubin 0.00 Eosinophils # 0.2 Eosinophils % 2.1 Globulin 3.40 H Glucose Level 62 L Hematocrit 26.1 L Hemoglobin 8.1 L INR International Normalized Ratio 1.15 Indirect Bilirubin 0.3 Lactic Acid Level 1.0 0.9 0.9 Lymphocytes # 2.1 Lymphocytes % 28.4 Magnesium Level 1.6 L Mean Corpuscular Hemoglobin 30.2 Mean Corpuscular Hemoglobin Concent 31.0 L Mean Corpuscular Volume 97.4 Mean Platelet Volume 10.2 # Monocytes # 0.5 Monocytes % 7.5 Neutrophils # 4.2 Neutrophils % 58.6 Nucleated Red Blood Cells # 0.0 Nucleated Red Blood Cells % 0.0 Platelet Count 156 Potassium Level 4.1 Prothrombin Time 14.7 H Prothrombin Time Ratio 1.1 Red Blood Count 2.68 L Red Cell Distribution Width 17.6 H Sodium Level 142 Total Bilirubin 0.3 Total Protein 6.2 Troponin I 0.740 *H 0.478 *H White Blood Count 7.2 # Creatine Kinase 56 Creatine Kinase Index 4.6 Creatinine Kinase MB (Mass) 2.55 H Test 08/12/16 03:00 08/12/16 05:49 Creatine Kinase 72 Creatine Kinase Index 4.2 Creatinine Kinase MB (Mass) 3.02 H Troponin I 0.295 *H Alanine Aminotransferase (ALT/SGPT) 24 Albumin 2.6 L Albumin/Globulin Ratio 0.76 Alkaline Phosphatase 56 Anion Gap 11 Aspartate Amino Transf (AST/SGOT) 28 Basophils # 0.0 Basophils % 0.2 Blood Urea Nitrogen 20 Calcium Level 7.5 L Carbon Dioxide Level 32 H Chloride Level 103 Creatinine 0.84 Direct Bilirubin 0.00 Eosinophils # 0.2 Eosinophils % 4.0 Globulin 3.40 H Glucose Level 134 # Hematocrit 27.0 L Hemoglobin 8.2 L Indirect Bilirubin 0.1 Lymphocytes # 1.5 Lymphocytes % 28.4 Magnesium Level 2.5 Mean Corpuscular Hemoglobin 30.5 Mean Corpuscular Hemoglobin Concent 30.4 L Mean Corpuscular Volume 100.4 Mean Platelet Volume 10.4 Monocytes # 0.3 Monocytes % 5.5 Neutrophils # 3.1 Neutrophils % 59.8 Nucleated Red Blood Cells # 0.0 Nucleated Red Blood Cells % 0.0 Platelet Count 140 Potassium Level 4.2 Prealbumin 10.0 L Red Blood Count 2.69 L Red Cell Distribution Width 17.5 H Sodium Level 142 Total Bilirubin 0.1 L Total Protein 6.0 L White Blood Count 5.3 # Medications Medications Current Medications Amiodarone HCl/ Dextrose (Cordarone Iv/ D5W) 500 ml @ 0 mls/hr Q0M IV Last administered on 08/11/16 21:28; Admin Dose 33.4 MLS/HR; Start 08/11/16 at 17:00 ; Stop 08/12/16 at 16:59 Aspirin (Halfprin) 81 mg DAILY PO Last administered on 08/12/16 10:13; Admin Dose 81 MG; Start 08/12/16 at 09:00 Clopidogrel Bisulfate (plaVIX) 75 mg DAILY PO Last administered on 08/12/16 10: 13; Admin Dose 75 MG; Start 08/12/16 at 09:00 Ferrous Sulfate (Ferrous Sulfate (Ec)) 325 mg BID PO Last administered on 10:14; Admin Dose 325 MG; Start 08/11/16 at 21:00 Finasteride (Proscar) 5 mg DAILY PO Last administered on 08/12/16 10:13; Admin Dose 5 MG; Start 08/12/16 at 09:00 Fluticasone Propionate (Flonase 0.05% Nasal) 1 spray BID NASAL Last administered on 08/12/16 10:18; Admin Dose 1 SPRAY; Start 08/11/16 at 21:00 Gabapentin (Neurontin) 300 mg TID PO Last administered on 08/12/16 09:00; Admin Dose 300 MG; Start 08/11/16 at 21:00 Guaifenesin/ Dextromethorphan (Robitussin Dm Liquid Cup) 10 ml Q4H PRN PO COUGH ; Start 08/11/16 at 17:00 Lactobacillus Acidoph/Bulgaricus (Floranex) 1 tab TID PO Last administered on 10:13; Admin Dose 1 TAB; Start 08/11/16 at 21:00 Montelukast Sodium (Singulair) 10 mg HS PO Last administered on 08/11/16 22:43 ; Admin Dose 10 MG; Start 08/11/16 at 21:00 Multivitamins Therapeutic (Theragran) 1 tab DAILY PO Last administered on 10:13; Admin Dose 1 TAB; Start 08/12/16 at 09:00 Oxycodone/ Acetaminophen (Endocet (10/ 325)) 1 tab Q6 PRN PO PAIN; Start at 17:00 Pantoprazole (Protonix Tab) 40 mg DAILY PO Last administered on 08/12/16 10:13 ; Admin Dose 40 MG; Start 08/12/16 at 09:00 Salmeterol Xinafoate/ Fluticasone (Advair 500/50 Diskus) 1 inh BID INH Last administered on 08/12/16 10:18; Admin Dose 1 INH; Start 08/11/16 at 21:00 Tamsulosin HCl (Flomax) 0.4 mg HS PO Last administered on 08/11/16 22:40; Admin Dose 0.4 MG; Start 08/11/16 at 21:00 Tiotropium [place] (Spiriva) 1 inh DAILY INH Last administered on 08/12/16 10: 13; Admin Dose 1 INH; Start 08/12/16 at 09:00 Guaifenesin/ Dextromethorphan (Mucinex Dm) 1 tab BID PO Last administered on 10:14; Admin Dose 1 TAB; Start 08/12/16 at 09:00 Fish Oil (Fish Oil) 1,000 mg DAILY PO Last administered on 08/12/16 10:13; Admin Dose 1,000 MG; Start 08/12/16 at 09:00 Atorvastatin Calcium 20 mg 20 mg DAILY@21 PO Last administered on 08/11/16 22: 44; Admin Dose 20 MG; Start 08/11/16 at 21:58 Sodium Chloride (NS) 1,000 ml @ 80 mls/hr [id number] IV Last administered on 08/11 21:37; Admin Dose 80 MLS/HR; Start 08/11/16 at 16:49 Ondansetron HCl (Zofran Inj) 4 mg Q6H PRN IV NAUSEA AND/OR VOMITING; Start at 17:00 Nitroglycerin (Nitroglycerin (Sl Tab) 0.4 Mg) 1 tab Q5M PRN SL CHEST PAIN; Start 08/11/16 at 17:00 Acetaminophen (Tylenol Tab) 650 mg Q6H PRN PO PAIN LEVEL 1-3 OR FEVER; Start at 17:00 Morphine Sulfate (morphine) 2 mg Q4H PRN IV PAIN LEVEL 7-10; Start 08/11/16 at 17:00 Docusate Sodium (Colace) 100 mg Q12H PRN PO CONSTIPATION; Start 08/11/16 at 17: 00 Magnesium Hydroxide (Milk Of Mag) 30 ml DAILY PRN PO CONSTIPATION; Start at 17:00 Bisacodyl (Dulcolax Supp) 10 mg DAILY PRN [place] CONSTIPATION; Start 08/11/16 at 17 :00 Enoxaparin Sodium 30 mg 30 mg DAILY SC Last administered on 08/12/16 10:15; Admin Dose 30 MG; Start 08/12/16 at 09:00 Piperacillin Sod/ Tazobactam Sod 100 ml @ 200 mls/hr Q8 IVPB Last administered on 08/12/16 05:40; Admin Dose 200 MLS/HR; Start 08/11/16 at 22:00 Vancomycin HCl (Vancocin) 250 ml @ 125 mls/hr Q24H IVPB Last administered on 10:15; Admin Dose 125 MLS/HR; Start 08/12/16 at 11:00 RICHIE SWEET Aug 12, 2016 10:34
[2016-08-12] MEDS ORDERED: SOD CHLORIDE 0.9% 250 ML IV ONE ×2 (11:00→16:00)
[2016-08-12] MEDS ORDERED: LIDOCAINE 1% (MDV) 20 ML INJ SC ONE (11:00)
[2016-08-12] MEDS: ONDANSETRON 4 MG INJ IV PRN (11:33)
[2016-08-12 12:28] LABS: CK-MB 1.96 ng/ml (0.0-2.4); TROPONIN-I 0.209 ng/ml (0.00-0.12)
[2016-08-12] MEDS ORDERED: DIGOXIN 500 MCG INJ IV ONE ×2 (13:30→20:00)
--- NOTE | 2016-08-12 13:44 | CONS ---
Date/Time of Note Date/Time of Note DATE: 08/12/16 TIME: 13:32 Assessment/Plan Assessment/Plan Additional Assessment/Plan Sepsis Hypotension Respiratory Failure Acute Decompensated Systolic and diastolic CHF Paroxysmal atrial fibrillation/flutter Transient heart block status post pacemaker 06/16/2016 Acute kidney injury Cardiomyopathy ejection fraction 45-50% from outside facility Aortic stenosis, status post transcatheter aortic valve replacement in January 2015. Chronic obstructive pulmonary disease on home oxygen. -It appears patient currently in atrial flutter with rapid ventricular rates. Given his low blood pressure, unable to give any beta blockade. Would continue amiodarone, give digoxin, I have requested pacemaker interrogation to confirm and to see when is the start of his atrial flutter. Otherwise antibiotics as per primary team. Unfortunately, patient with history of recurrent anemia on anticoagulation. Continue aspirin and Plavix therapy, statin therapy. Consultation Date/Type/Reason Admit Date/Time Aug 11, 2016 at 16:21 Type of Consultation: cv Reason for Consultation Hypotension, tachycardia Hx of Present Illness This is an 81-year-old male well-known to me from multiple previous admissions who was recently discharged from a nursing facility 5 days ago. The next day, patient with fevers and chills and progressive shortness of breath. Patient also with cough and increased swelling in his lower extremities. Symptoms continue to worsen until he came to the emergency room yesterday. Patient initially hypotensive and tachycardic. He was treated with antibiotics, IV fluids, IV amiodarone. He feels better today with less shortness of breath, he denies fevers or chills, denies weakness or lightheadedness, chest pain or palpitations. 12 point review of systems was performed with all pertinent positives and negatives mentioned above and all else is negative Past Medical History Medical History: congestive heart failure, coronary artery disease, high cholesterol, hypertension, renal disease Past Surgical History tavr PCI Past Surgical Hx: other Family History Significant Family History: no pertinent family hx Social History Smoking Status: Never smoker Other Social History Recently at nursing facility but currently came from home Exam/Review of Systems Vital Signs Vitals Vital Signs Date Time Temp Pulse Resp B/P Pulse Ox O2 Delivery O2 Flow Rate FiO2 08/12/16 12:30 129 23 72/41 100 08/12/16 12:00 98.0 08/12/16 06:00 Nasal Cannula 2.0 Intake and Output 08/11/16 08/11/16 08/12/16 15:00 23:00 07:00 Intake Total 2496.8 ml 1078.4 ml Output Total 150 ml 230 ml Balance 2346.8 ml 848.4 ml Exam No apparent distress Constitutional: alert, frail, oriented Head: normocephalic Neck: supple Respiratory: other (Coarse breath sounds bilaterally, no wheezing) Cardiovascular: other (S1-S2 heard), regular rate and rhythm, systolic murmur Gastrointestinal: bowel sounds, non-tender, other (No guarding), soft Extremities: edema, other (Multiple areas of ecchymosis and erythema on left lower extremity) Results Result Diagram: 08/12/16 0549 08/12/16 0549 Results 24 hrs Laboratory Tests Test 08/11/16 14:10 08/11/16 14:15 08/11/16 20:10 08/11/16 22:15 Urine Bacteria MANY Urine Bilirubin NEGATIVE Urine Clarity CLOUDY H Urine Coarse Granular Casts FEW Urine Color LT. YELLOW Urine Glucose NEGATIVE Urine Hemoglobin 1+ H Urine Ketones TRACE Urine Leukocyte Esterase 1+ H Urine Microscopic RBC 2-5 Urine Microscopic WBC >200 Urine Nitrite NEGATIVE Urine Specific [place] >=1.030 H Urine Total Protein 1+ H Urine Transitional Epithelial Cells FEW Urine Urobilinogen 0.2 E.U./dL Urine pH 6.0 Activated Partial Thromboplast Time 42.4 H Alanine Aminotransferase (ALT/SGPT) 28 Albumin 2.8 L Albumin/Globulin Ratio 0.82 Alkaline Phosphatase 63 Anion Gap 13 Aspartate Amino Transf (AST/SGOT) 24 Basophils # 0.0 Basophils % 0.1 Blood Urea Nitrogen 19 Calcium Level 8.0 L Carbon Dioxide Level 34 H Chloride Level 99 Creatinine 0.93 Direct Bilirubin 0.00 Eosinophils # 0.2 Eosinophils % 2.1 Globulin 3.40 H Glucose Level 62 L Hematocrit 26.1 L Hemoglobin 8.1 L INR International Normalized Ratio 1.15 Indirect Bilirubin 0.3 Lactic Acid Level 1.0 0.9 0.9 Lymphocytes # 2.1 Lymphocytes % 28.4 Magnesium Level 1.6 L Mean Corpuscular Hemoglobin 30.2 Mean Corpuscular Hemoglobin Concent 31.0 L Mean Corpuscular Volume 97.4 Mean Platelet Volume 10.2 # Monocytes # 0.5 Monocytes % 7.5 Neutrophils # 4.2 Neutrophils % 58.6 Nucleated Red Blood Cells # 0.0 Nucleated Red Blood Cells % 0.0 Platelet Count 156 Potassium Level 4.1 Prothrombin Time 14.7 H Prothrombin Time Ratio 1.1 Red Blood Count 2.68 L Red Cell Distribution Width 17.6 H Sodium Level 142 Total Bilirubin 0.3 Total Protein 6.2 Troponin I 0.740 *H 0.478 *H White Blood Count 7.2 # Creatine Kinase 56 Creatine Kinase Index 4.6 Creatinine Kinase MB (Mass) 2.55 H Test 08/12/16 03:00 08/12/16 05:49 08/12/16 11:36 Creatine Kinase 72 39 Creatine Kinase Index 4.2 5.0 Creatinine Kinase MB (Mass) 3.02 H 1.96 Troponin I 0.295 *H 0.209 *H Alanine Aminotransferase (ALT/SGPT) 24 Albumin 2.6 L Albumin/Globulin Ratio 0.76 Alkaline Phosphatase 56 Anion Gap 11 Aspartate Amino Transf (AST/SGOT) 28 Basophils # 0.0 Basophils % 0.2 Blood Urea Nitrogen 20 Calcium Level 7.5 L Carbon Dioxide Level 32 H Chloride Level 103 Creatinine 0.84 Direct Bilirubin 0.00 Eosinophils # 0.2 Eosinophils % 4.0 Globulin 3.40 H Glucose Level 134 # Hematocrit 27.0 L Hemoglobin 8.2 L Indirect Bilirubin 0.1 Lymphocytes # 1.5 Lymphocytes % 28.4 Magnesium Level 2.5 Mean Corpuscular Hemoglobin 30.5 Mean Corpuscular Hemoglobin Concent 30.4 L Mean Corpuscular Volume 100.4 Mean Platelet Volume 10.4 Monocytes # 0.3 Monocytes % 5.5 Neutrophils # 3.1 Neutrophils % 59.8 Nucleated Red Blood Cells # 0.0 Nucleated Red Blood Cells % 0.0 Platelet Count 140 Potassium Level 4.2 Prealbumin 10.0 L Red Blood Count 2.69 L Red Cell Distribution Width 17.5 H Sodium Level 142 Total Bilirubin 0.1 L Total Protein 6.0 L White Blood Count 5.3 # Medications Medications Current Medications Amiodarone HCl/ Dextrose (Cordarone Iv/ D5W) 500 ml @ 0 mls/hr Q0M IV Last administered on 08/11/16t 21:28; Admin Dose 33.4 MLS/HR; Start 08/11/16 at 17:00 ; Stop 08/12/16 at 16:59 Aspirin (Halfprin) 81 mg DAILY PO Last administered on 08/12/16 10:13; Admin Dose 81 MG; Start 08/12/16 at 09:00 Clopidogrel Bisulfate (plaVIX) 75 mg DAILY PO Last administered on 08/12/16 10: 13; Admin Dose 75 MG; Start 08/12/16 at 09:00 Ferrous Sulfate (Ferrous Sulfate (Ec)) 325 mg BID PO Last administered on 10:14; Admin Dose 325 MG; Start 08/11/16 at 21:00 Finasteride (Proscar) 5 mg DAILY PO Last administered on 08/12/16 10:13; Admin Dose 5 MG; Start 08/12/16 at 09:00 Fluticasone Propionate (Flonase 0.05% Nasal) 1 spray BID NASAL Last administered on 08/12/16 10:18; Admin Dose 1 SPRAY; Start 08/11/16 at 21:00 Gabapentin (Neurontin) 300 mg TID PO Last administered on 08/12/16 09:00; Admin Dose 300 MG; Start 08/11/16 at 21:00 Guaifenesin/ Dextromethorphan (Robitussin Dm Liquid Cup) 10 ml Q4H PRN PO COUGH ; Start 08/11/16 at 17:00 Lactobacillus Acidoph/Bulgaricus (Floranex) 1 tab TID PO Last administered on 10:13; Admin Dose 1 TAB; Start 08/11/16 at 21:00 Montelukast Sodium (Singulair) 10 mg HS PO Last administered on 08/11/16 22:43 ; Admin Dose 10 MG; Start 08/11/16 at 21:00 Multivitamins Therapeutic (Theragran) 1 tab DAILY PO Last administered on 10:13; Admin Dose 1 TAB; Start 08/12/16 at 09:00 Oxycodone/ Acetaminophen (Endocet (10/ 325)) 1 tab Q6 PRN PO PAIN; Start at 17:00 Pantoprazole (Protonix Tab) 40 mg DAILY PO Last administered on 08/12/16 10:13 ; Admin Dose 40 MG; Start 08/12/16 at 09:00 Salmeterol Xinafoate/ Fluticasone (Advair 500/50 Diskus) 1 inh BID INH Last administered on 08/12/16 10:18; Admin Dose 1 INH; Start 08/11/16 at 21:00 Tamsulosin HCl (Flomax) 0.4 mg HS PO Last administered on 08/11/16 22:40; Admin Dose 0.4 MG; Start 08/11/16 at 21:00 Tiotropium [place] (Spiriva) 1 inh DAILY INH Last administered on 08/12/16 10: 13; Admin Dose 1 INH; Start 08/12/16 at 09:00 Guaifenesin/ Dextromethorphan (Mucinex Dm) 1 tab BID PO Last administered on 10:14; Admin Dose 1 TAB; Start 08/12/16 at 09:00 Fish Oil (Fish Oil) 1,000 mg DAILY PO Last administered on 08/12/16 10:13; Admin Dose 1,000 MG; Start 08/12/16 at 09:00 Atorvastatin Calcium 20 mg 20 mg DAILY@21 PO Last administered on 08/11/16 22: 44; Admin Dose 20 MG; Start 08/11/16 at 21:58 Sodium Chloride (NS) 1,000 ml @ 100 mls/hr Q10H IV Last administered on 21:37; Admin Dose 80 MLS/HR; Start 08/11/16 at 16:49 Ondansetron HCl (Zofran Inj) 4 mg Q6H PRN IV NAUSEA AND/OR VOMITING Last administered on 08/12/16 11:33; Admin Dose 4 MG; Start 08/11/16 at 17:00 Nitroglycerin (Nitroglycerin (Sl Tab) 0.4 Mg) 1 tab Q5M PRN SL CHEST PAIN; Start 08/11/16 at 17:00 Acetaminophen (Tylenol Tab) 650 mg Q6H PRN PO PAIN LEVEL 1-3 OR FEVER; Start at 17:00 Morphine Sulfate (morphine) 2 mg Q4H PRN IV PAIN LEVEL 7-10; Start 08/11/16 at 17:00 Docusate Sodium (Colace) 100 mg Q12H PRN PO CONSTIPATION; Start 08/11/16 at 17: 00 Magnesium Hydroxide (Milk Of Mag) 30 ml DAILY PRN PO CONSTIPATION; Start at 17:00 Bisacodyl (Dulcolax Supp) 10 mg DAILY PRN [place] CONSTIPATION; Start 08/11/16 at 17 :00 Enoxaparin Sodium 30 mg 30 mg DAILY SC Last administered on 08/12/16 10:15; Admin Dose 30 MG; Start 08/12/16 at 09:00 Piperacillin Sod/ Tazobactam Sod 100 ml @ 200 mls/hr Q8 IVPB Last administered on 08/12/16 05:40; Admin Dose 200 MLS/HR; Start 08/11/16 at 22:00 Vancomycin HCl (Vancocin) 250 ml @ 125 mls/hr Q24H IVPB Last administered on 10:15; Admin Dose 125 MLS/HR; Start 08/12/16 at 11:00 Digoxin (Digoxin) 250 mcg NOW ONCE IV ; Start 08/12/16 at 13:30; Stop 08/12/16 at 13:31; Status UNV Digoxin (Digoxin) 250 mcg 20 ONCE IV ; Start 08/12/16 at 20:00; Stop 08/12/16 at 20:01; Status UNV Procedures Procedures ECG with tachycardia in the 130s, appears like atrial flutter, less likely sinus tachycardia. Left bundle branch block Calos Peralta DO Aug 12, 2016 13:42
--- NOTE | 2016-08-12 17:49 | RADRPT ---
PROCEDURE: XR Chest. CLINICAL INDICATION: Check PICC line position. TECHNIQUE: Single frontal view. COMPARISON: 08/11/2016. FINDINGS: There is a right arm PICC line with the tip in the mid superior vena cava. Bilateral diffuse inters titial pulmonary disease is unchanged. The lungs are otherwise clear. The heart is enlarged. There is a biventricular pacemaker/dual lead internal cardiac defibrillator, unchanged. A transarterial aortic valve replacement is also noted. There are small bilateral pleural effusions. There is no pneumothorax. IMPRESSION: 1. Satisfactory position of right arm PICC line. 2. Unchanged bilateral pulmonary edema. 3. Cardiomegaly. Biventricular pacemaker/dual lead internal cardiac defibrillator, unchanged. 4. Transitarterial aortic valve replacement. 5. Otherwise unremarkable study. RPTAT: QQ .Oscar Jackson MD, MD Date Time Electronically viewed and signed by .Oscar Jackson MD, MD on 08/12/2016 17:49 .R/
--- NOTE | 2016-08-12 18:13 | RADRPT ---
PROCEDURE: Ultrasound guidance for placement of needle in right upper extremity vein. CLINICAL INDICATION: Venous access. TECHNIQUE: Limited sonography of the right upper extremity was performed. Ultrasound images were recorded and stored in the patient's medical record. COMPARISON: None. FINDINGS: The ultrasound images demonstrate a patent right upper extremity vein. The PICC line was inserted b y the PICC line nurse. IMPRESSION: 1. Ultrasound guidance for a needle placement in a right upper extremity vein. 2. The visualized right upper extremity vein is patent. RPTAT: QQ .Oscar Jackson MD, MD Date Time Electronically viewed and signed by .Oscar Jackson MD, MD on 08/12/2016 18:13 .R/
[2016-08-12] MEDS ORDERED: AMIODARONE 900 MG in DEXTROSE 5% 482 ML IV SCH ×4 (18:30)
[2016-08-12] MEDS: TAMSULOSIN (SR) 0.4 MG CAP PO SCH (20:30)
[2016-08-12] MEDS: ATORVASTATIN 20 MG TAB PO SCH (20:31)
[2016-08-12] MEDS: MONTELUKAST 10 MG TAB PO SCH (20:33)
[2016-08-13] VITALS (60 sets, daily range): BP systolic 51–126; BP diastolic 35–80; PULSE 62–133; RESP 13–31
[2016-08-13] MEDS: SOD CHLORIDE 0.9% 1,000 ML IV SCH ×4 (02:25→13:02)
[2016-08-13 04:51] LABS: ADD SCAN DIFF NO
[2016-08-13 05:03] LABS: ABNORMAL IP MESSAGE 1; BASOPHILS % 0.2 % (0.0-2.0); EOSINOPHILS # 0.2 10^3/ul (0.0-0.5); EOSINOPHILS % 4.9 % (0.0-7.0); HEMATOCRIT 22.6 % (42.0-52.0); LYMPHOCYTES # 1.7 10^3/ul (0.8-2.9); LYMPHOCYTES % 37.1 % (15.0-51.0); MEAN CORPUSCULAR HEMOGLOBIN 29.8 pg (29.0-33.0); MEAN CORPUSCULAR HGB CONC 29.6 g/dl (32.0-37.0); MEAN CORPUSCULAR VOLUME 100.4 fl (82.0-101.0); MEAN PLATELET VOLUME 10.2 fl (7.4-10.4); MONOCYTE # 0.3 10^3/ul (0.3-0.9); MONOCYTES % 7.6 % (0.0-11.0); NEUTROPHIL # 2.2 10^3/ul (1.6-7.5); NEUTROPHILS % 49.1 % (39.0-77.0); PLATELET COUNT 147 10^3/UL (140-415); RED BLOOD COUNT 2.25 10^6/ul (4.70-6.10); RED CELL DISTRIBUTION WIDTH 17.4 % (11.5-14.5); WHITE BLOOD COUNT 4.5 10^3/ul (4.8-10.8)
[2016-08-13 05:09] LABS: POTASSIUM 3.8 mmol/L (3.5-5.1)
[2016-08-13 05:10] LABS: MAGNESIUM 2.2 mg/dl (1.7-2.5); PHOSPHORUS 2.3 mg/dl (2.5-4.9)
[2016-08-13 05:11] LABS: CREATININE 0.82 mg/dl (0.61-1.24)
[2016-08-13 05:12] LABS: CALCIUM 7.4 mg/dl (8.4-10.2)
[2016-08-13 05:22] LABS: HEMOGLOBIN 6.7 g/dl (14.0-18.0)
[2016-08-13 05:24] LABS: CK-MB 1.25 ng/ml (0.0-2.4); TROPONIN-I 0.147 ng/ml (0.00-0.12)
[2016-08-13] MEDS: PIPER-TAZO 3.375 GM IV (PMX) 100 ML IVPB SCH ×3 (05:35→22:17)
[2016-08-13 07:37] LABS: HEMATOCRIT 21.9 % (42.0-52.0)
[2016-08-13 07:49] LABS: HEMOGLOBIN 6.7 g/dl (14.0-18.0)
[2016-08-13] MEDS: TIOTROPIUM 18 MCG CAPSULE INHA DEV INH SCH (09:00)
[2016-08-13] MEDS: SALMETEROL/FLUTICASONE 500/50 INHA INH SCH ×2 (09:14→20:11)
[2016-08-13] MEDS: MULTIVITAMINS THERAPEUTIC TAB PO SCH (09:15)
[2016-08-13] MEDS: FINASTERIDE 5 MG TAB PO SCH (09:15)
[2016-08-13] MEDS: LACTOBACILLUS CHEW TAB PO SCH ×3 (09:15→20:15)
[2016-08-13] MEDS: PANTOPRAZOLE (EC) 40 MG TAB PO SCH (09:15)
[2016-08-13] MEDS: FISH OIL 1,000 MG CAP PO SCH (09:15)
[2016-08-13] MEDS: GABAPENTIN 300 MG CAP PO SCH ×3 (09:15→20:16)
[2016-08-13] MEDS: FERROUS SULFATE (EC) 325 MG TAB PO SCH ×2 (09:15→20:14)
[2016-08-13] MEDS: GUAIFENESIN/DM (SR) TAB PO SCH ×2 (09:15→20:16)
[2016-08-13] MEDS: ASPIRIN (EC) 81 MG TAB PO SCH (09:15)
[2016-08-13] MEDS: ENOXAPARIN 30 MG/0.3 ML SYG SC SCH (09:16)
[2016-08-13] MEDS: FLUTICASONE 0.05% 16 GM NAS SPRAY NASAL SCH ×2 (09:18→20:11)
[2016-08-13] MEDS: CLOPIDOGREL 75 MG TAB PO SCH (09:18)
[2016-08-13] MEDS: LEVALBUTEROL (NEB) 0.63 MG/3 ML AMP HHN SCH ×2 (09:25→16:04)
--- NOTE | 2016-08-13 10:38 | PN ---
Date/Time of Note Date/Time of Note DATE: 08/13/16 TIME: 10:11 Assessment/Plan VTE Prophylaxis VTE Prophylaxis Intervention: SCD's Lines/Catheters IV Catheter Type (from Nrsg): PICC Line Central line still needed: Yes (for IV access ) Urinary Cath still in place: Yes Reason Cath still needed: urinary retention (chronic ), other (indicate) (new [place], changed 08/12) Assessment/Plan Assessment/Plan 81-year-old male with: 1. Hypotension resolving, episodes of dizziness, hypotensive and tachycardic on arrival that could be either related to hypovolemia versus early infection. Lower extremity erythema almost resolved, BP better On IVF and holding BP meds off, apparently his ejection fraction has improved to approx 50% according to Dr. Peralta. On Amio for Afib/flutter, electrolytes repleted Continue antibiotics with Zosyn and vancomycin. 2. Coronary artery disease with ischemic cardiomyopathy, status post transcatheter aortic valve replacement, status post biventricular pacer placement. Elevated troponins, trending down and Dr Peralta to see Continue current cardiac medications including aspirin and Plavix. Hold off his beta blockers and Valsartan at this time. On Amiodarone with atrial fibrillation/atrial flutter. Monitoring volume status closely. 3. Chronic kidney disease. Renal function stable. 4. Hypomagnesemia. Repleted 5. Chronic obstructive pulmonary disease. On 2L NC chronically Continue nebulizer treatment, Advair and Spiriva at this time. 6. Bilateral lower extremity erythema concerning for cellulitis given his presentation. Improving Continue vancomycin and Zosyn. 7. Hypothyroidism. Continue current meds. 8. Temporal arteritis, stable. 9. 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 UA positive and Urine culture with Pseudomonas sensitive to Zosyn. [place] catheter changed last night. Continue current abx based on culture results 10. Hypertension. Currently normo to hypotensive, all BP medications held. Continue IV fluids at lower rate and getting pRBC currently. Prophylaxis. Given anemia again, change to SCDs for DVT prophylaxis and Protonix for GI prophylaxis. DISPOSITION: In ICU because of hypotension, uncontrolled A flutter and multiple end organ dysfunctions. On amiodarone drip, IV antibiotics, IV fluids. Cardiology following. Subjective 24 Hr Interval Summary Free Text/Dictation Patient with Hb down to 6.7 this AM, getting pRBC this AM, still with flutter, seems controlled at rest but uncontrolled with minimal exertion Afebrile and WBC wnl, on abx for UTI and ? HCAP [place] changed last night Noted with acute exacerbation of Anemia this AM, receiving pRBC currently Exam/Review of Systems Vital Signs Vitals Vital Signs Date Time Temp Pulse Resp B/P Pulse Ox O2 Delivery O2 Flow Rate FiO2 08/13/16 09:25 107 24 99 Nasal Cannula 2.0 08/13/16 07:30 104/72 08/13/16 05:00 98.0 Intake and Output 08/12/16 08/12/16 08/13/16 15:00 23:00 07:00 Intake Total 440 ml 773.5 ml 1316.9 ml Output Total 170 ml 145 ml 195 ml Balance 270 ml 628.5 ml 1121.9 ml Exam Constitutional: alert, frail, oriented Respiratory: diminished breath sounds (chronic b/l wheezes ), normal air movement Cardiovascular: irregular rhythm (A flutter ), nl pulses Gastrointestinal: non-tender, soft Genitourinary - Male: other (new [place] catheter ) Musculoskeletal: nl extremities to inspection, nl gait and stance Extremities: normal pulses, other (much improved edema and erythema lower ext b /l ) 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: DIRECTOR WEB II-XII intact, lethargic, nl mental status, nl speech Skin: ecchymosis (mostly upper ext ) Results Result Diagram: 08/13/16 0730 08/13/16 0420 Results 24 hrs Laboratory Tests Test 08/12/16 11:36 08/13/16 04:20 08/13/16 07:30 Creatine Kinase 39 29 Creatine Kinase Index 5.0 4.3 Creatinine Kinase MB (Mass) 1.96 1.25 Troponin I 0.209 *H 0.147 *H Anion Gap 8 Basophils # 0.0 Basophils % 0.2 Blood Urea Nitrogen 14 Calcium Level 7.4 L Carbon Dioxide Level 33 H Chloride Level 105 Creatinine 0.82 Differential Comment AUTO w/SCAN Eosinophils # 0.2 Eosinophils % 4.9 Glucose Level 125 Hematocrit 22.6 L 21.9 L Hemoglobin 6.7 *L 6.7 *L Lymphocytes # 1.7 Lymphocytes % 37.1 Magnesium Level 2.2 Mean Corpuscular Hemoglobin 29.8 Mean Corpuscular Hemoglobin Concent 29.6 L Mean Corpuscular Volume 100.4 Mean Platelet Volume 10.2 Monocytes # 0.3 Monocytes % 7.6 Neutrophils # 2.2 Neutrophils % 49.1 Nucleated Red Blood Cells # 0.0 Nucleated Red Blood Cells % 0.0 Phosphorus Level 2.3 L Platelet Count 147 Potassium Level 3.8 Red Blood Count 2.25 L Red Cell Distribution Width 17.4 H Sodium Level 142 White Blood Count 4.5 L Medications Medications Current Medications Aspirin (Halfprin) 81 mg DAILY PO Last administered on 08/13/16 09:15; Admin Dose 81 MG; Start 08/12/16 at 09:00 Clopidogrel Bisulfate (plaVIX) 75 mg DAILY PO Last administered on 08/13/16 09: 18; Admin Dose 75 MG; Start 08/12/16 at 09:00 Ferrous Sulfate (Ferrous Sulfate (Ec)) 325 mg BID PO Last administered on 09:15; Admin Dose 325 MG; Start 08/11/16 at 21:00 Finasteride (Proscar) 5 mg DAILY PO Last administered on 08/13/16 09:15; Admin Dose 5 MG; Start 08/12/16 at 09:00 Fluticasone Propionate (Flonase 0.05% Nasal) 1 spray BID NASAL Last administered on 08/13/16 09:18; Admin Dose 1 SPRAY; Start 08/11/16 at 21:00 Gabapentin (Neurontin) 300 mg TID PO Last administered on 08/13/16 09:15; Admin Dose 300 MG; Start 08/11/16 at 21:00 Guaifenesin/ Dextromethorphan (Robitussin Dm Liquid Cup) 10 ml Q4H PRN PO COUGH ; Start 08/11/16 at 17:00 Lactobacillus Acidoph/Bulgaricus (Floranex) 1 tab TID PO Last administered on 09:15; Admin Dose 1 TAB; Start 08/11/16 at 21:00 Montelukast Sodium (Singulair) 10 mg HS PO Last administered on 08/12/16 20:33 ; Admin Dose 10 MG; Start 08/11/16 at 21:00 Multivitamins Therapeutic (Theragran) 1 tab DAILY PO Last administered on 09:15; Admin Dose 1 TAB; Start 08/12/16 at 09:00 Oxycodone/ Acetaminophen (Endocet (10/ 325)) 1 tab Q6 PRN PO PAIN; Start at 17:00 Pantoprazole (Protonix Tab) 40 mg DAILY PO Last administered on 08/13/16 09:15 ; Admin Dose 40 MG; Start 08/12/16 at 09:00 Salmeterol Xinafoate/ Fluticasone (Advair 500/50 Diskus) 1 inh BID INH Last administered on 08/13/16 09:14; Admin Dose 1 INH; Start 08/11/16 at 21:00 Tamsulosin HCl (Flomax) 0.4 mg HS PO Last administered on 08/12/16 20:30; Admin Dose 0.4 MG; Start 08/11/16 at 21:00 Tiotropium [place] (Spiriva) 1 inh DAILY INH Last administered on 08/12/16 10: 13; Admin Dose 1 INH; Start 08/12/16 at 09:00 Guaifenesin/ Dextromethorphan (Mucinex Dm) 1 tab BID PO Last administered on 09:15; Admin Dose 1 TAB; Start 08/12/16 at 09:00 Fish Oil (Fish Oil) 1,000 mg DAILY PO Last administered on 08/13/16 09:15; Admin Dose 1,000 MG; Start 08/12/16 at 09:00 Atorvastatin Calcium 20 mg 20 mg DAILY@21 PO Last administered on 08/12/16 20: 31; Admin Dose 20 MG; Start 08/11/16 at 21:58 Sodium Chloride (NS) 1,000 ml @ 100 mls/hr Q10H IV Last administered on 04:25; Admin Dose 100 MLS/HR; Start 08/11/16 at 16:49 Ondansetron HCl (Zofran Inj) 4 mg Q6H PRN IV NAUSEA AND/OR VOMITING Last administered on 08/12/16 11:33; Admin Dose 4 MG; Start 08/11/16 at 17:00 Nitroglycerin (Nitroglycerin (Sl Tab) 0.4 Mg) 1 tab Q5M PRN SL CHEST PAIN; Start 08/11/16 at 17:00 Acetaminophen (Tylenol Tab) 650 mg Q6H PRN PO PAIN LEVEL 1-3 OR FEVER; Start at 17:00 Morphine Sulfate (morphine) 2 mg Q4H PRN IV PAIN LEVEL 7-10; Start 08/11/16 at 17:00 Docusate Sodium (Colace) 100 mg Q12H PRN PO CONSTIPATION; Start 08/11/16 at 17: 00 Magnesium Hydroxide (Milk Of Mag) 30 ml DAILY PRN PO CONSTIPATION; Start at 17:00 Bisacodyl (Dulcolax Supp) 10 mg DAILY PRN [place] CONSTIPATION; Start 08/11/16 at 17 :00 Enoxaparin Sodium 30 mg 30 mg DAILY SC Last administered on 08/13/16 09:16; Admin Dose 30 MG; Start 08/12/16 at 09:00 Piperacillin Sod/ Tazobactam Sod 100 ml @ 200 mls/hr Q8 IVPB Last administered on 08/13/16 05:35; Admin Dose 200 MLS/HR; Start 08/11/16 at 22:00 Vancomycin HCl (Vancocin) 250 ml @ 125 mls/hr Q24H IVPB Last administered on 10:15; Admin Dose 125 MLS/HR; Start 08/12/16 at 11:00 IV Flush 10 ml 10 ml PRN PRN IV IV PROTOCOL; Start 08/12/16 at 18:30 Amiodarone HCl/ Dextrose (Cordarone Iv/ D5W) 500 ml @ 0 mls/hr Q0M IV Last administered on 08/12/16 18:30; Admin Dose 16.7 MLS/HR; Start 08/12/16 at 18:30 RICHIE SWEET Aug 13, 2016 10:22
[2016-08-13] MEDS: VANCOMYCIN 1 GM in NS 250 ML IVPB SCH (11:19)
[2016-08-13] MEDS: SILVER SULFADIAZINE 1% 25 GM CR TOP SCH (13:02)
--- NOTE | 2016-08-13 13:06 | CONS ---
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 Chronic obstructive pulmonary disease on home oxygen. -Pacemaker interrogation demonstrated yesterday the patient consistently in atrial flutter for the past several days. Today, patient with episodes of heart rates in the 80s and up to 130s. Repeat pacemaker interrogation demonstrated patient with atrial flutter with variable ventricular rates. Pacemaker adjustments were made to decrease the baseline pacing rate to 60. Agree with blood transfusion, watch closely for volume overload and need of Lasix if blood pressure tolerates. Given recent cardiac stent, would need to continue aspirin and Plavix therapy, continue statin therapy. Continue amiodarone. We will transition to p.o. the next 1-2 days. Consultation Date/Type/Reason Admit Date/Time Aug 11, 2016 at 16:21 Initial Consult Date Type of Consultation: cv 24 HR Interval Summary Free Text/Dictation Feeling better, less shortness of breath, denies chest pain or dizziness Exam/Review of Systems Vital Signs Vitals Vital Signs Date Time Temp Pulse Resp B/P Pulse Ox O2 Delivery O2 Flow Rate FiO2 08/13/16 12:00 83 08/13/16 11:15 19 107/56 96 Nasal Cannula 2.0 08/13/16 10:30 98.2 Intake and Output 08/12/16 08/12/16 08/13/16 14:59 22:59 06:59 Intake Total 476.7 ml 716.8 ml 1433.6 ml Output Total 140 ml 145 ml 225 ml Balance 336.7 ml 571.8 ml 1208.6 ml Exam No apparent distress Constitutional: alert, frail, oriented Head: normocephalic Neck: supple Respiratory: other Cardiovascular: other (S1-S2 heard), regular rate and rhythm (With frequent irregularities) Gastrointestinal: bowel sounds, non-tender, other (No guarding), soft Extremities: edema, other (Erythema lower extremity) Results Result Diagram: 08/13/16 5618 08/13/16 0420 Results 24 hrs Laboratory Tests Test 08/13/16 04:20 08/13/16 07:30 Anion Gap 8 Basophils # 0.0 Basophils % 0.2 Blood Urea Nitrogen 14 Calcium Level 7.4 L Carbon Dioxide Level 33 H Chloride Level 105 Creatine Kinase 29 Creatine Kinase Index 4.3 Creatinine 0.82 Creatinine Kinase MB (Mass) 1.25 Differential Comment AUTO w/SCAN Eosinophils # 0.2 Eosinophils % 4.9 Glucose Level 125 Hematocrit 22.6 L 21.9 L Hemoglobin 6.7 *L 6.7 *L Lymphocytes # 1.7 Lymphocytes % 37.1 Magnesium Level 2.2 Mean Corpuscular Hemoglobin 29.8 Mean Corpuscular Hemoglobin Concent 29.6 L Mean Corpuscular Volume 100.4 Mean Platelet Volume 10.2 Monocytes # 0.3 Monocytes % 7.6 Neutrophils # 2.2 Neutrophils % 49.1 Nucleated Red Blood Cells # 0.0 Nucleated Red Blood Cells % 0.0 Phosphorus Level 2.3 L Platelet Count 147 Potassium Level 3.8 Red Blood Count 2.25 L Red Cell Distribution Width 17.4 H Sodium Level 142 Troponin I 0.147 *H White Blood Count 4.5 L Medications Medications Current Medications Aspirin (Halfprin) 81 mg DAILY PO Last administered on 08/13/16 09:15; Admin Dose 81 MG; Start 08/12/16 at 09:00 Clopidogrel Bisulfate (plaVIX) 75 mg DAILY PO Last administered on 08/13/16 09: 18; Admin Dose 75 MG; Start 08/12/16 at 09:00 Ferrous Sulfate (Ferrous Sulfate (Ec)) 325 mg BID PO Last administered on 09:15; Admin Dose 325 MG; Start 08/11/16 at 21:00 Finasteride (Proscar) 5 mg DAILY PO Last administered on 08/13/16 09:15; Admin Dose 5 MG; Start 08/12/16 at 09:00 Fluticasone Propionate (Flonase 0.05% Nasal) 1 spray BID NASAL Last administered on 08/13/16 09:18; Admin Dose 1 SPRAY; Start 08/11/16 at 21:00 Gabapentin (Neurontin) 300 mg TID PO Last administered on 08/13/16 09:15; Admin Dose 300 MG; Start 08/11/16 at 21:00 Guaifenesin/ Dextromethorphan (Robitussin Dm Liquid Cup) 10 ml Q4H PRN PO COUGH ; Start 08/11/16 at 17:00 Lactobacillus Acidoph/Bulgaricus (Floranex) 1 tab TID PO Last administered on 09:15; Admin Dose 1 TAB; Start 08/11/16 at 21:00 Montelukast Sodium (Singulair) 10 mg HS PO Last administered on 08/12/16 20:33 ; Admin Dose 10 MG; Start 08/11/16 at 21:00 Multivitamins Therapeutic (Theragran) 1 tab DAILY PO Last administered on 09:15; Admin Dose 1 TAB; Start 08/12/16 at 09:00 Oxycodone/ Acetaminophen (Endocet (10/ 325)) 1 tab Q6 PRN PO PAIN; Start at 17:00 Pantoprazole (Protonix Tab) 40 mg DAILY PO Last administered on 08/13/16 09:15 ; Admin Dose 40 MG; Start 08/12/16 at 09:00 Salmeterol Xinafoate/ Fluticasone (Advair 500/50 Diskus) 1 inh BID INH Last administered on 08/13/16 09:14; Admin Dose 1 INH; Start 08/11/16 at 21:00 Tamsulosin HCl (Flomax) 0.4 mg HS PO Last administered on 08/12/16 20:30; Admin Dose 0.4 MG; Start 08/11/16 at 21:00 Tiotropium [place] (Spiriva) 1 inh DAILY INH Last administered on 08/13/16 09: 00; Admin Dose 1 INH; Start 08/12/16 at 09:00 Guaifenesin/ Dextromethorphan (Mucinex Dm) 1 tab BID PO Last administered on 09:15; Admin Dose 1 TAB; Start 08/12/16 at 09:00 Fish Oil (Fish Oil) 1,000 mg DAILY PO Last administered on 08/13/16 09:15; Admin Dose 1,000 MG; Start 08/12/16 at 09:00 Atorvastatin Calcium 20 mg 20 mg DAILY@21 PO Last administered on 08/12/16 20: 31; Admin Dose 20 MG; Start 08/11/16 at 21:58 Sodium Chloride (NS) 1,000 ml @ 75 mls/hr [id number] IV Last administered on 11:18; Admin Dose 75 MLS/HR; Start 08/11/16 at 16:49 Ondansetron HCl (Zofran Inj) 4 mg Q6H PRN IV NAUSEA AND/OR VOMITING Last administered on 08/12/16 11:33; Admin Dose 4 MG; Start 08/11/16 at 17:00 Nitroglycerin (Nitroglycerin (Sl Tab) 0.4 Mg) 1 tab Q5M PRN SL CHEST PAIN; Start 08/11/16 at 17:00 Acetaminophen (Tylenol Tab) 650 mg Q6H PRN PO PAIN LEVEL 1-3 OR FEVER; Start at 17:00 Morphine Sulfate (morphine) 2 mg Q4H PRN IV PAIN LEVEL 7-10; Start 08/11/16 at 17:00 Docusate Sodium (Colace) 100 mg Q12H PRN PO CONSTIPATION; Start 08/11/16 at 17: 00 Magnesium Hydroxide (Milk Of Mag) 30 ml DAILY PRN PO CONSTIPATION; Start at 17:00 Bisacodyl 10 mg 10 mg DAILY PRN [place] CONSTIPATION; Start 08/11/16 at 17:00 Piperacillin Sod/ Tazobactam Sod 100 ml @ 200 mls/hr Q8 IVPB Last administered on 08/13/16 05:35; Admin Dose 200 MLS/HR; Start 08/11/16 at 22:00 Vancomycin HCl (Vancocin) 250 ml @ 125 mls/hr Q24H IVPB Last administered on 11:19; Admin Dose 125 MLS/HR; Start 08/12/16 at 11:00 IV Flush 10 ml 10 ml PRN PRN IV IV PROTOCOL; Start 08/12/16 at 18:30 Amiodarone HCl/ Dextrose (Cordarone Iv/ D5W) 500 ml @ 0 mls/hr Q0M IV Last administered on 08/12/16 18:30; Admin Dose 16.7 MLS/HR; Start 08/12/16 at 18:30 Silver Sulfadiazine (Thermazene 1% 25 Gm) 1 applic DAILY TOP ; Start 08/13/16 at 12:00 Calos Peralta DO Aug 13, 2016 13:06
[2016-08-13] MEDS ORDERED: DIGOXIN 500 MCG INJ IV ONE (13:30)
[2016-08-13] MEDS: AMIODARONE 200 MG TAB PO SCH ×2 (13:57→20:12)
[2016-08-13] MEDS: OXYCODONE/ACETAMINOPHEN (10/325) TAB PO PRN (16:22)
[2016-08-13] MEDS ORDERED: SOD CHLORIDE 0.9% 100 ML ONE (17:57)
[2016-08-13] MEDS: TAMSULOSIN (SR) 0.4 MG CAP PO SCH (20:14)
[2016-08-13] MEDS: ATORVASTATIN 20 MG TAB PO SCH (20:15)
[2016-08-13] MEDS: MONTELUKAST 10 MG TAB PO SCH (20:16)
[2016-08-13] MEDS: MUPIROCIN 2% 22 GM OINT TOP SCH (20:20)
[2016-08-14] VITALS (27 sets, daily range): BP systolic 96–138; BP diastolic 37–100; PULSE 63–121; RESP 18–29
[2016-08-14] MEDS: LEVALBUTEROL (NEB) 0.63 MG/3 ML AMP HHN SCH ×3 (00:35→17:08)
[2016-08-14 02:11] LABS: AADO2 Arterial 301.8 mmHg (7.0-24.0); Allen Test ACCEPTAB; Arterial Base Excess 0.3 mmol/L (-3.0-3); Arterial COHb 0.2 % (0.0-3.0); Arterial Fraction of Oxyhgb 98.5 % (93.0-99.0); Arterial HCO3 28.7 mmol/L (22.0-26.0); Arterial MetHb 0.5 % (0.0-1.5); Arterial Total Hemglobin 11.3 g/dl (12.0-18.0); MODE MASK - NRB
[2016-08-14] MEDS: SOD CHLORIDE 0.9% 1,000 ML IV SCH (02:19)
[2016-08-14] MEDS ORDERED: FUROSEMIDE 20 MG INJ IV ONE (03:30)
[2016-08-14 04:42] LABS: ADD SCAN DIFF NO
[2016-08-14 04:44] LABS: BASOPHILS % 0.1 % (0.0-2.0); EOSINOPHILS # 0.2 10^3/ul (0.0-0.5); EOSINOPHILS % 3.1 % (0.0-7.0); HEMATOCRIT 30.1 % (42.0-52.0); HEMOGLOBIN 9.3 g/dl (14.0-18.0); LYMPHOCYTES # 1.8 10^3/ul (0.8-2.9); LYMPHOCYTES % 25.7 % (15.0-51.0); MEAN CORPUSCULAR HEMOGLOBIN 30.5 pg (29.0-33.0); MEAN CORPUSCULAR HGB CONC 30.9 g/dl (32.0-37.0); MEAN CORPUSCULAR VOLUME 98.7 fl (82.0-101.0); MEAN PLATELET VOLUME 10.4 fl (7.4-10.4); MONOCYTE # 0.5 10^3/ul (0.3-0.9); MONOCYTES % 7.1 % (0.0-11.0); NEUTROPHIL # 4.5 10^3/ul (1.6-7.5); PLATELET COUNT 162 10^3/UL (140-415); RED BLOOD COUNT 3.05 10^6/ul (4.70-6.10); RED CELL DISTRIBUTION WIDTH 17.9 % (11.5-14.5); WHITE BLOOD COUNT 7.1 10^3/ul (4.8-10.8)
[2016-08-14 05:00] LABS: ALBUMIN 2.5 g/dl (3.3-4.9)
[2016-08-14 05:01] LABS: POTASSIUM 4.2 mmol/L (3.5-5.1)
[2016-08-14 05:03] LABS: BILIRUBIN,INDIRECT 0.2 mg/dl (0-1.1); BILIRUBIN,TOTAL 0.2 mg/dl (0.2-1.3); CREATININE 0.93 mg/dl (0.61-1.24)
[2016-08-14 05:04] LABS: CALCIUM 7.6 mg/dl (8.4-10.2)
[2016-08-14 05:06] LABS: ALBUMIN/GLOBULIN RATIO 0.71; MAGNESIUM 2.1 mg/dl (1.7-2.5); PHOSPHORUS 2.6 mg/dl (2.5-4.9)
[2016-08-14 05:59] LABS: AADO2 Arterial 86.8 mmHg (7.0-24.0); Allen Test ACCEPTAB; Arterial Base Excess 0.8 mmol/L (-3.0-3); Arterial COHb 0 % (0.0-3.0); Arterial Fraction of Oxyhgb 94.3 % (93.0-99.0); Arterial HCO3 28.3 mmol/L (22.0-26.0); Arterial MetHb 0.5 % (0.0-1.5); Arterial Total Hemglobin 10.2 g/dl (12.0-18.0); MODE NASAL CANNULA
[2016-08-14] MEDS: PIPER-TAZO 3.375 GM IV (PMX) 100 ML IVPB SCH ×3 (06:03→22:46)
[2016-08-14] MEDS: ONDANSETRON 4 MG INJ IV PRN (06:28)
[2016-08-14 07:08] LABS: AADO2 Arterial 122.4 mmHg (7.0-24.0); Allen Test ACCEPTAB; Arterial Base Excess 1.9 mmol/L (-3.0-3); Arterial COHb 0.3 % (0.0-3.0); Arterial Fraction of Oxyhgb 94.8 % (93.0-99.0); Arterial HCO3 29.9 mmol/L (22.0-26.0); Arterial MetHb 0.5 % (0.0-1.5); Arterial Total Hemglobin 10.2 g/dl (12.0-18.0); Blood Gas IEPAP 15/5; Blood Gas PS 10; MODE MASK - BIPAP
--- NOTE | 2016-08-14 07:38 | CONS ---
Date/Time of Note Date/Time of Note DATE: 08/14/16 TIME: 07:32 Assessment/Plan Assessment/Plan Additional Assessment/Plan Chest x-ray was reviewed from the of last month which is showing very mild interstitial prominence. Chest x-ray also was reviewed from first of this month showing increase in mild pulmonary edema. Assessment recommendations; 1. Patient admitted with anemia status post blood transfusion. Then developed shortness of breath likely from some element of fluid overload. 2. Underlying multiple other comorbidities as outlined above. 3. Patient exhibiting hypercapnic/hypoxemic respiratory failure, refusing BiPAP for now. Obtain a chest x-ray. Increase Lasix 40 mg IV every 12 hours. Her blood gas in about an hour's time. Process patient's ventilatory status. Meanwhile continue current supportive care. Consultation Date/Type/Reason Admit Date/Time Aug 11, 2016 at 16:21 Date of Consultation: Aug 14, 2016 Type of Consultation: Pulmonary/critical care Reason for Consultation Family consultation obtained for evaluation of shortness of breath and hypoxemic and hypercapnic respiratory failure. History presenting; patient is a pleasant 80-year-old white male who was admitted on the of last month with complaints of not feeling well the patient was recently discharged from [facility] Where He Was Admitted for Pneumonia. Upon Admission Here Patient Found to Be Anemic He Was Transfused Blood after That the Patient Became Short of Breath and Had to Be Transferred to ICU. Time I Saw the Patient the Patient Is Quite Awake Alert Able to Give History by Himself According to Him Shortness of Breath Is Improving He However Does Not Want to Try Any Further BiPAP. He Denies Any Chest Pain, Any Nausea, Vomiting. Any Fever, Chills. Denies Any Coughing Sputum. Past Medical History; 1. History of Severe COPD. 2. History of Crohn's Arterial Aortic Valve Replacement. 3. Temporal Arteritis. 4. Chronic Back Pain. 5. Atrial Fibrillation. 6. BPH. 7. Neuropathy. 8. History of coronary artery disease. 9. Possibly interstitial lung disease. Allergies; are none. Social history ; patient is most of any smoking alcohol or drug abuse. 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 Family history; patient is with a partner. Review of systems; limited review systems reviewed. He denies any headache, any visual changes. Any chest pain, wheezing, sputum production. Any hemoptysis. Complains of mild shortness of breath. Does complain of chronic dyspnea on exertion. Denies abdominal pain, nausea, vomiting. Any melena, hematochezia. Does complain of mild lower extremity swelling. Complains of chronic back pain. Has steady weight. General examination; elderly male, on 100% FiO2. Awake and alert. Past Medical History Medical History: congestive heart failure, coronary artery disease, high cholesterol, hypertension, renal disease Past Surgical History Past Surgical Hx: other Social History Smoking Status: Never smoker Exam/Review of Systems Vital Signs Vitals Vital Signs Date Time Temp Pulse Resp B/P Pulse Ox O2 Delivery O2 Flow Rate FiO2 08/14/16 06:38 3.0 08/14/16 06:00 79 21 126/51 99 BIPAP 08/14/16 06:00 40 08/14/16 04:00 98.1 Intake and Output 08/13/16 08/13/16 08/14/16 15:00 23:00 07:00 Intake Total 973.6 ml 1228.6 ml 225 ml Output Total 210 ml 180 ml 465 ml Balance 763.6 ml 1048.6 ml -240 ml Exam HEENT examination; supple neck, positive JVD. Patient has dentures. Pharynx is clear. Has bilateral intraocular lens implants. No neck masses. No thyromegaly. No neck bruits. Chest examination; diminished breath sounds bilaterally with mild crackles bilaterally. S1-S2 audible, irregular rhythm. Abdomen examination; soft, protuberant. Nontender. Bowel sounds audible. Extremity examination; trace pitting edema in lower extremities and trace pitting edema in upper extremities as well. Pulses 1+ bilaterally. There is no clubbing. [employer] examination; cranial nerves are grossly intact there is no motor deficit. Results Result Diagram: 08/14/16 0350 08/14/16 0350 Results 24 hrs Laboratory Tests Test 08/14/16 02:00 08/14/16 03:50 08/14/16 05:45 08/14/16 06:28 Arterial Blood HCO3 28.7 H 28.3 H 29.9 H Arterial Blood Base Excess 0.3 0.8 1.9 Arterial Blood Oxygen Saturation 99.2 94.8 L 95.6 [place] Test ACCEPTAB ACCEPTAB ACCEPTAB Arterial Blood Gas Puncture Site Right Radial Right Radial Right Radial Arterial Blood Carboxyhemoglobin 0.2 0 0.3 Arterial Blood Date Drawn 08/14/2016 2:00:12 AM 08/14/2016 5:40:52 AM 08/14/2016 6:54:20 AM Arterial Blood Methemoglobin 0.5 0.5 0.5 Arterial Blood pCO2 (Temp correct) 66.3 H 60.7 H 66.7 H Arterial Blood pH (Temp corrected) 7.254 *L 7.286 *L 7.270 *L Arterial Blood pO2 (Temp corrected) 344.9 H 77.6 L 86.1 Blood Gas A-a O2 Differential 301.8 H 86.8 H 122.4 H Blood Gas Critical Value Read Back HALIMA HYLTON RN Y SANTO RN Blood Gas Modality MASK - NRB NASAL CANNULA MASK - BIPAP Blood Gas Notified Time 08/14/2016 2:11:18 AM 08/14/2016 5:59:40 AM 08/14/2016 7:03:03 AM Blood Gas Notified Whom KEVIN BROWN TM Blood Gas Specimen Source Blood arterial Blood arterial Blood arterial Blood Gas Temperature 37.0 37.0 37.0 FiO2 100.0 33.0 40.0 Oxyhemoglobin Percent 98.5 94.3 94.8 Total Hemoglobin 11.3 L 10.2 L 10.2 L Alanine Aminotransferase (ALT/SGPT) 27 Albumin 2.5 L Albumin/Globulin Ratio 0.71 Alkaline Phosphatase 57 Anion Gap 10 Aspartate Amino Transf (AST/SGOT) 19 Basophils # 0.0 Basophils % 0.1 Blood Urea Nitrogen 13 Calcium Level 7.6 L Carbon Dioxide Level 31 Chloride Level 106 Creatinine 0.93 Direct Bilirubin 0.00 Eosinophils # 0.2 Eosinophils % 3.1 Globulin 3.50 H Glucose Level 100 Hematocrit 30.1 #L Hemoglobin 9.3 #L Indirect Bilirubin 0.2 Lymphocytes # 1.8 Lymphocytes % 25.7 Magnesium Level 2.1 Mean Corpuscular Hemoglobin 30.5 Mean Corpuscular Hemoglobin Concent 30.9 L Mean Corpuscular Volume 98.7 Mean Platelet Volume 10.4 Monocytes # 0.5 Monocytes % 7.1 Neutrophils # 4.5 Neutrophils % 63.0 Nucleated Red Blood Cells # 0.0 Nucleated Red Blood Cells % 0.0 Phosphorus Level 2.6 Platelet Count 162 Potassium Level 4.2 Red Blood Count 3.05 #L Red Cell Distribution Width 17.9 H Sodium Level 143 Total Bilirubin 0.2 Total Protein 6.0 L White Blood Count 7.1 # Blood Gas Actual Respiration Rate 17 Blood Gas IPAP/EPAP Ratio 15/5 Blood Gas Pressure Support 10 Blood Gas Respiration Rate 16.0 Medications Medications Current Medications Aspirin (Halfprin) 81 mg DAILY PO Last administered on 08/13/16 09:15; Admin Dose 81 MG; Start 08/12/16 at 09:00 Clopidogrel Bisulfate (plaVIX) 75 mg DAILY PO Last administered on 08/13/16 09: 18; Admin Dose 75 MG; Start 08/12/16 at 09:00 Ferrous Sulfate (Ferrous Sulfate (Ec)) 325 mg BID PO Last administered on 20:14; Admin Dose 325 MG; Start 08/11/16 at 21:00 Finasteride (Proscar) 5 mg DAILY PO Last administered on 08/13/16 09:15; Admin Dose 5 MG; Start 08/12/16 at 09:00 Fluticasone Propionate (Flonase 0.05% Nasal) 1 spray BID NASAL Last administered on 08/13/16 20:11; Admin Dose 1 SPRAY; Start 08/11/16 at 21:00 Gabapentin (Neurontin) 300 mg TID PO Last administered on 08/13/16 20:16; Admin Dose 300 MG; Start 08/11/16 at 21:00 Guaifenesin/ Dextromethorphan (Robitussin Dm Liquid Cup) 10 ml Q4H PRN PO COUGH ; Start 08/11/16 at 17:00 Lactobacillus Acidoph/Bulgaricus (Floranex) 1 tab TID PO Last administered on 20:15; Admin Dose 1 TAB; Start 08/11/16 at 21:00 Montelukast Sodium (Singulair) 10 mg HS PO Last administered on 08/13/16 20:16 ; Admin Dose 10 MG; Start 08/11/16 at 21:00 Multivitamins Therapeutic (Theragran) 1 tab DAILY PO Last administered on 09:15; Admin Dose 1 TAB; Start 08/12/16 at 09:00 Oxycodone/ Acetaminophen (Endocet (10/ 325)) 1 tab Q6 PRN PO PAIN Last administered on 08/13/16 16:22; Admin Dose 1 TAB; Start 08/11/16 at 17:00 Pantoprazole (Protonix Tab) 40 mg DAILY PO Last administered on 08/13/16 09:15 ; Admin Dose 40 MG; Start 08/12/16 at 09:00 Salmeterol Xinafoate/ Fluticasone (Advair 500/50 Diskus) 1 inh BID INH Last administered on 08/13/16 20:11; Admin Dose 1 INH; Start 08/11/16 at 21:00 Tamsulosin HCl (Flomax) 0.4 mg HS PO Last administered on 08/13/16 20:14; Admin Dose 0.4 MG; Start 08/11/16 at 21:00 Tiotropium [place] (Spiriva) 1 inh DAILY INH Last administered on 08/13/16 09: 00; Admin Dose 1 INH; Start 08/12/16 at 09:00 Guaifenesin/ Dextromethorphan (Mucinex Dm) 1 tab BID PO Last administered on 20:16; Admin Dose 1 TAB; Start 08/12/16 at 09:00 Fish Oil (Fish Oil) 1,000 mg DAILY PO Last administered on 08/13/16 09:15; Admin Dose 1,000 MG; Start 08/12/16 at 09:00 Atorvastatin Calcium 20 mg 20 mg DAILY@21 PO Last administered on 08/13/16 20: 15; Admin Dose 20 MG; Start 08/11/16 at 21:58 Sodium Chloride (NS) 1,000 ml @ 75 mls/hr [id number] IV Last administered on 13:02; Admin Dose 75 MLS/HR; Start 08/11/16 at 16:49 Ondansetron HCl (Zofran Inj) 4 mg Q6H PRN IV NAUSEA AND/OR VOMITING Last administered on 08/14/16 06:28; Admin Dose 4 MG; Start 08/11/16 at 17:00 Nitroglycerin (Nitroglycerin (Sl Tab) 0.4 Mg) 1 tab Q5M PRN SL CHEST PAIN; Start 08/11/16 at 17:00 Acetaminophen (Tylenol Tab) 650 mg Q6H PRN PO PAIN LEVEL 1-3 OR FEVER; Start at 17:00 Morphine Sulfate (morphine) 2 mg Q4H PRN IV PAIN LEVEL 7-10; Start 08/11/16 at 17:00 Docusate Sodium (Colace) 100 mg Q12H PRN PO CONSTIPATION; Start 08/11/16 at 17: 00 Magnesium Hydroxide (Milk Of Mag) 30 ml DAILY PRN PO CONSTIPATION; Start at 17:00 Bisacodyl 10 mg 10 mg DAILY PRN [place] CONSTIPATION; Start 08/11/16 at 17:00 Piperacillin Sod/ Tazobactam Sod 100 ml @ 200 mls/hr Q8 IVPB Last administered on 08/14/16 06:03; Admin Dose 200 MLS/HR; Start 08/11/16 at 22:00 Vancomycin HCl (Vancocin) 250 ml @ 125 mls/hr Q24H IVPB Last administered on 11:19; Admin Dose 125 MLS/HR; Start 08/12/16 at 11:00 IV Flush (NS 10 ml) 10 ml PRN PRN IV IV PROTOCOL; Start 08/12/16 at 18:30 Silver Sulfadiazine (Thermazene 1% 25 Gm) 1 applic DAILY TOP Last administered on 08/13/16 13:02; Admin Dose 1 APPLIC; Start 08/13/16 at 12:00 Amiodarone HCl (Cordarone) 400 mg BID PO Last administered on 08/13/16 20:12; Admin Dose 400 MG; Start 08/13/16 at 13:30 Miscellaneous Information (*Rx Drug Level Order Reminder*) 1 ONCE ONCE XX ; Start 08/14/16 at 10:00; Stop 08/14/16 at 10:01 Mupirocin (Bactroban) 1 applic BID TOP Last administered on 08/13/16 20:20; Admin Dose 1 APPLIC; Start 08/13/16 at 21:00; Stop 08/27/16 at 20:59 ERIN HERNANDEZ Aug 14, 2016 07:38
[2016-08-14] MEDS ORDERED: FUROSEMIDE 40 MG INJ IV SCH (08:00)
[2016-08-14] MEDS: LACTOBACILLUS CHEW TAB PO SCH ×3 (08:13→21:18)
[2016-08-14] MEDS: CLOPIDOGREL 75 MG TAB PO SCH (08:13)
[2016-08-14] MEDS: FINASTERIDE 5 MG TAB PO SCH (08:13)
[2016-08-14] MEDS: FERROUS SULFATE (EC) 325 MG TAB PO SCH ×2 (08:13→21:17)
[2016-08-14] MEDS: GUAIFENESIN/DM (SR) TAB PO SCH ×2 (08:13→21:18)
[2016-08-14] MEDS: MULTIVITAMINS THERAPEUTIC TAB PO SCH (08:13)
[2016-08-14] MEDS: AMIODARONE 200 MG TAB PO SCH ×2 (08:14→21:14)
[2016-08-14] MEDS: FISH OIL 1,000 MG CAP PO SCH (08:14)
[2016-08-14] MEDS: ASPIRIN (EC) 81 MG TAB PO SCH (08:14)
[2016-08-14] MEDS: FLUTICASONE 0.05% 16 GM NAS SPRAY NASAL SCH ×2 (08:15→21:12)
[2016-08-14] MEDS: SALMETEROL/FLUTICASONE 500/50 INHA INH SCH ×2 (08:15→21:11)
[2016-08-14] MEDS: TIOTROPIUM 18 MCG CAPSULE INHA DEV INH SCH (08:19)
[2016-08-14] MEDS: SILVER SULFADIAZINE 1% 25 GM CR TOP SCH (09:00)
[2016-08-14] MEDS: MUPIROCIN 2% 22 GM OINT TOP SCH ×2 (09:00→21:20)
[2016-08-14] MEDS: PANTOPRAZOLE (EC) 40 MG TAB PO SCH (09:00)
[2016-08-14] MEDS: GABAPENTIN 300 MG CAP PO SCH ×3 (09:00→21:15)
--- NOTE | 2016-08-14 09:36 | RADRPT ---
PROCEDURE: XR Chest. CLINICAL INDICATION: Shortness of breath. Evaluate for fluid overload. TECHNIQUE: Chest x-ray, single view. COMPARISON: 08/12/2016. FINDINGS: The heart is enlarged and unchanged in size and configuration. A dual-chamber AICD is in place. A right atrial pacemaker lead is also present. Aortic arch atherosclerotic calcification is present. Low lung volumes are observed. Pulmonary vascular prominence has increased. In addition, there is slight increase in patchy parenchymal opacification. A right upper extremity PICC terminates withi n the lower SVC. Bony demineralization is present. Evidence of vertebroplasty is seen within the sp ine. Evidence of aortic valve replacement is also observed. IMPRESSION: Low lung volumes with increased pulmonary vascular prominence and patchy pulmonary parenchymal opaci fication. RPTAT: HLST .Erika Tim MD, Date Time Electronically viewed and signed by .Erika Tim MD, on 08/14/2016 09:36 .T/
--- NOTE | 2016-08-14 10:10 | CONS ---
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 Chronic obstructive pulmonary disease on home oxygen. Acute blood loss anemia status post blood transfusion -Heart rate trend overall improved and remains in atrial fibrillation/flutter. Patient unable to tolerate anticoagulation given recurrent anemia requiring blood transfusion. He is on aspirin and Plavix secondary to recent PCI. He does have evidence of worsening congestive heart failure after blood transfusion. Would start Lasix 40 mg IV twice daily as blood pressure and renal function permits. Maintain potassium above 4.0 and magnesium above 2.0. Oxygen supplementation to maintain O2 sat greater than 92% Consultation Date/Type/Reason Admit Date/Time Aug 11, 2016 at 16:21 Type of Consultation: cv 24 HR Interval Summary Free Text/Dictation Patient with increased shortness of breath overnight and this morning. Feels anxious, denies chest pain Exam/Review of Systems Vital Signs Vitals Vital Signs Date Time Temp Pulse Resp B/P Pulse Ox O2 Delivery O2 Flow Rate FiO2 08/14/16 09:57 100 22 Venti Mask 35 08/14/16 06:38 3.0 08/14/16 06:00 126/51 99 08/14/16 04:00 98.1 Intake and Output 08/13/16 08/13/16 08/14/16 15:00 23:00 07:00 Intake Total 973.6 ml 1228.6 ml 225 ml Output Total 210 ml 180 ml 465 ml Balance 763.6 ml 1048.6 ml -240 ml Exam Confused at times, mild dyspnea with extensively speaking Constitutional: alert, frail Head: normocephalic Neck: supple Respiratory: other (Coarse breath sounds bilaterally with scattered rhonchi and crackles, minimal and expiratory wheezing) Cardiovascular: irregular rhythm, other (S1-S2 heard), systolic murmur Gastrointestinal: bowel sounds, non-tender, other (No guarding), soft Extremities: edema, other (Numerous areas of ecchymosis) Results Result Diagram: 08/14/16 0350 08/14/16 0350 Results 24 hrs Laboratory Tests Test 08/14/16 02:00 08/14/16 03:50 08/14/16 05:45 08/14/16 06:28 Arterial Blood HCO3 28.7 H 28.3 H 29.9 H Arterial Blood Base Excess 0.3 0.8 1.9 Arterial Blood Oxygen Saturation 99.2 94.8 L 95.6 [place] Test ACCEPTAB ACCEPTAB ACCEPTAB Arterial Blood Gas Puncture Site Right Radial Right Radial Right Radial Arterial Blood Carboxyhemoglobin 0.2 0 0.3 Arterial Blood Date Drawn 08/14/2016 2:00:12 AM 08/14/2016 5:40:52 AM 08/14/2016 6:54:20 AM Arterial Blood Methemoglobin 0.5 0.5 0.5 Arterial Blood pCO2 (Temp correct) 66.3 H 60.7 H 66.7 H Arterial Blood pH (Temp corrected) 7.254 *L 7.286 *L 7.270 *L Arterial Blood pO2 (Temp corrected) 344.9 H 77.6 L 86.1 Blood Gas A-a O2 Differential 301.8 H 86.8 H 122.4 H Blood Gas Critical Value Read Back HALIMA HYLTON RN Y SANTO RN Blood Gas Modality MASK - NRB NASAL CANNULA MASK - BIPAP Blood Gas Notified Time 08/14/2016 2:11:18 AM 08/14/2016 5:59:40 AM 08/14/2016 7:03:03 AM Blood Gas Notified Whom KEVIN BROWN TM Blood Gas Specimen Source Blood arterial Blood arterial Blood arterial Blood Gas Temperature 37.0 37.0 37.0 FiO2 100.0 33.0 40.0 Oxyhemoglobin Percent 98.5 94.3 94.8 Total Hemoglobin 11.3 L 10.2 L 10.2 L Alanine Aminotransferase (ALT/SGPT) 27 Albumin 2.5 L Albumin/Globulin Ratio 0.71 Alkaline Phosphatase 57 Anion Gap 10 Aspartate Amino Transf (AST/SGOT) 19 Basophils # 0.0 Basophils % 0.1 Blood Urea Nitrogen 13 Calcium Level 7.6 L Carbon Dioxide Level 31 Chloride Level 106 Creatinine 0.93 Direct Bilirubin 0.00 Eosinophils # 0.2 Eosinophils % 3.1 Globulin 3.50 H Glucose Level 100 Hematocrit 30.1 #L Hemoglobin 9.3 #L Indirect Bilirubin 0.2 Lymphocytes # 1.8 Lymphocytes % 25.7 Magnesium Level 2.1 Mean Corpuscular Hemoglobin 30.5 Mean Corpuscular Hemoglobin Concent 30.9 L Mean Corpuscular Volume 98.7 Mean Platelet Volume 10.4 Monocytes # 0.5 Monocytes % 7.1 Neutrophils # 4.5 Neutrophils % 63.0 Nucleated Red Blood Cells # 0.0 Nucleated Red Blood Cells % 0.0 Phosphorus Level 2.6 Platelet Count 162 Potassium Level 4.2 Red Blood Count 3.05 #L Red Cell Distribution Width 17.9 H Sodium Level 143 Total Bilirubin 0.2 Total Protein 6.0 L White Blood Count 7.1 # Blood Gas Actual Respiration Rate 17 Blood Gas IPAP/EPAP Ratio 15/5 Blood Gas Pressure Support 10 Blood Gas Respiration Rate 16.0 Medications Medications Current Medications Aspirin (Halfprin) 81 mg DAILY PO Last administered on 08/14/16 08:14; Admin Dose 81 MG; Start 08/12/16 at 09:00 Clopidogrel Bisulfate (plaVIX) 75 mg DAILY PO Last administered on 08/14/16 08: 13; Admin Dose 75 MG; Start 08/12/16 at 09:00 Ferrous Sulfate (Ferrous Sulfate (Ec)) 325 mg BID PO Last administered on 08:13; Admin Dose 325 MG; Start 08/11/16 at 21:00 Finasteride (Proscar) 5 mg DAILY PO Last administered on 08/14/16 08:13; Admin Dose 5 MG; Start 08/12/16 at 09:00 Fluticasone Propionate (Flonase 0.05% Nasal) 1 spray BID NASAL Last administered on 08/14/16 08:15; Admin Dose 1 SPRAY; Start 08/11/16 at 21:00 Gabapentin (Neurontin) 300 mg TID PO Last administered on 08/13/16 20:16; Admin Dose 300 MG; Start 08/11/16 at 21:00 Guaifenesin/ Dextromethorphan (Robitussin Dm Liquid Cup) 10 ml Q4H PRN PO COUGH ; Start 08/11/16 at 17:00 Lactobacillus Acidoph/Bulgaricus (Floranex) 1 tab TID PO Last administered on 08:13; Admin Dose 1 TAB; Start 08/11/16 at 21:00 Montelukast Sodium (Singulair) 10 mg HS PO Last administered on 08/13/16 20:16 ; Admin Dose 10 MG; Start 08/11/16 at 21:00 Multivitamins Therapeutic (Theragran) 1 tab DAILY PO Last administered on 08:13; Admin Dose 1 TAB; Start 08/12/16 at 09:00 Oxycodone/ Acetaminophen (Endocet (10/ 325)) 1 tab Q6 PRN PO PAIN Last administered on 08/13/16 16:22; Admin Dose 1 TAB; Start 08/11/16 at 17:00 Pantoprazole (Protonix Tab) 40 mg DAILY PO Last administered on 08/13/16 09:15 ; Admin Dose 40 MG; Start 08/12/16 at 09:00 Salmeterol Xinafoate/ Fluticasone (Advair 500/50 Diskus) 1 inh BID INH Last administered on 08/14/16 08:15; Admin Dose 1 INH; Start 08/11/16 at 21:00 Tamsulosin HCl (Flomax) 0.4 mg HS PO Last administered on 08/13/16 20:14; Admin Dose 0.4 MG; Start 08/11/16 at 21:00 Tiotropium [place] (Spiriva) 1 inh DAILY INH Last administered on 08/14/16 08: 19; Admin Dose 1 INH; Start 08/12/16 at 09:00 Guaifenesin/ Dextromethorphan (Mucinex Dm) 1 tab BID PO Last administered on 08:13; Admin Dose 1 TAB; Start 08/12/16 at 09:00 Fish Oil (Fish Oil) 1,000 mg DAILY PO Last administered on 08/14/16 08:14; Admin Dose 1,000 MG; Start 08/12/16 at 09:00 Atorvastatin Calcium (Lipitor) 20 mg DAILY@21 PO Last administered on 08/13/16 20:15; Admin Dose 20 MG; Start 08/11/16 at 21:58 Ondansetron HCl (Zofran Inj) 4 mg Q6H PRN IV NAUSEA AND/OR VOMITING Last administered on 08/14/16 06:28; Admin Dose 4 MG; Start 08/11/16 at 17:00 Nitroglycerin (Nitroglycerin (Sl Tab) 0.4 Mg) 1 tab Q5M PRN SL CHEST PAIN; Start 08/11/16 at 17:00 Acetaminophen (Tylenol Tab) 650 mg Q6H PRN PO PAIN LEVEL 1-3 OR FEVER; Start at 17:00 Morphine Sulfate (morphine) 2 mg Q4H PRN IV PAIN LEVEL 7-10; Start 08/11/16 at 17:00 Docusate Sodium (Colace) 100 mg Q12H PRN PO CONSTIPATION; Start 08/11/16 at 17: 00 Magnesium Hydroxide (Milk Of Mag) 30 ml DAILY PRN PO CONSTIPATION; Start at 17:00 Bisacodyl 10 mg 10 mg DAILY PRN [place] CONSTIPATION; Start 08/11/16 at 17:00 Piperacillin Sod/ Tazobactam Sod 100 ml @ 200 mls/hr Q8 IVPB Last administered on 08/14/16 06:03; Admin Dose 200 MLS/HR; Start 08/11/16 at 22:00 Vancomycin HCl (Vancocin) 250 ml @ 125 mls/hr Q24H IVPB Last administered on 11:19; Admin Dose 125 MLS/HR; Start 08/12/16 at 11:00 IV Flush (NS 10 ml) 10 ml PRN PRN IV IV PROTOCOL; Start 08/12/16 at 18:30 Silver Sulfadiazine (Thermazene 1% 25 Gm) 1 applic DAILY TOP Last administered on 08/13/16 13:02; Admin Dose 1 APPLIC; Start 08/13/16 at 12:00 Amiodarone HCl (Cordarone) 400 mg BID PO Last administered on 08/14/16 08:14; Admin Dose 400 MG; Start 08/13/16 at 13:30 Mupirocin (Bactroban) 1 applic BID TOP Last administered on 08/13/16 20:20; Admin Dose 1 APPLIC; Start 08/13/16 at 21:00; Stop 08/27/16 at 20:59 Furosemide (Lasix) 40 mg DAILY@06 IV Last administered on 08/14/16 08:19; Admin Dose 40 MG; Start 08/14/16 at 08:00 Calos Peralta DO Aug 14, 2016 10:10
[2016-08-14] MEDS: VANCOMYCIN 1 GM in NS 250 ML IVPB SCH (10:45)
--- NOTE | 2016-08-14 13:41 | PN ---
Date/Time of Note Date/Time of Note DATE: 08/14/16 TIME: 13:38 Assessment/Plan VTE Prophylaxis VTE Prophylaxis Intervention: SCD's Lines/Catheters IV Catheter Type (from Nrsg): PICC Line Central line still needed: Yes (for IV access ) Urinary Cath still in place: Yes Reason Cath still needed: urinary retention (chronic ), other (indicate) Assessment/Plan Assessment/Plan 81-year-old male with: 1. Resolved Hypotension. Lower extremity erythema almost resolved, BP better In volume overload, diuresing this AM D/c IVF, apparently his ejection fraction has improved to approx 50% according to Dr. Peralta. On Amio for Afib/flutter. Still with rates between 80-120's Continue antibiotics with Zosyn and vancomycin. 2. Coronary artery disease with ischemic cardiomyopathy, status post transcatheter aortic valve replacement, status post biventricular pacer placement. Elevated troponins, trending down and Dr Peralta following. Continue current cardiac medications including Aspirin and Plavix. On Amiodarone with atrial fibrillation/atrial flutter. Monitoring volume status closely. 3. Chronic kidney disease. Renal function stable. 4. Acute Respiratory Failure with known chronic hypoxemia and Chronic obstructive pulmonary disease. Volume overload On Ventimask and may need BiPAP later Continue nebulizer treatment, Advair and Spiriva at this time. Diuresis 5. Bilateral lower extremity erythema concerning for cellulitis given his presentation. Improving Continue vancomycin and Zosyn. 6. Hypothyroidism. Continue current meds. 7. Temporal arteritis, stable. 8. 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 UA positive and Urine culture with Pseudomonas sensitive to Zosyn. [place] catheter changed last night. Continue current abx based on culture results 9. Hypertension. Currently normo to hypotensive, all BP medications held. Diuresing Prophylaxis: SCDs for DVT prophylaxis and Protonix for GI prophylaxis. DISPOSITION: In ICU with respiratory distress, A flutter and multiple end organ dysfunctions. On amiodarone drip, IV antibiotics, diuresis. Cardiology and now Pulmonary following. Subjective 24 Hr Interval Summary Free Text/Dictation Patient with respiratory distress overnight hypercapnic/hypoxemic with volume overload and COPD S/p 2 units pRBC yesterday with Hb up to 9.3 Refused BiPAP overnight and currently on venti mask with good sats Repeat ABG Exam/Review of Systems Vital Signs Vitals Vital Signs Date Time Temp Pulse Resp B/P Pulse Ox O2 Delivery O2 Flow Rate FiO2 08/14/16 12:59 107 29 110/80 92 Venturi Mask 10.0 08/14/16 09:57 35 08/14/16 08:00 98.0 Intake and Output 08/13/16 08/13/16 08/14/16 15:00 23:00 07:00 Intake Total 973.6 ml 1228.6 ml 325 ml Output Total 210 ml 180 ml 515 ml Balance 763.6 ml 1048.6 ml -190 ml Exam Constitutional: alert, frail Respiratory: diminished breath sounds (bilaterally ) Cardiovascular: irregular rhythm (Atrial flutter, paced 70-120's) Gastrointestinal: non-tender, soft Extremities: normal pulses, other (+2 edema upper ext > Lower ext ) 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: 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 intact, confused, lethargic, nl speech Results Result Diagram: 08/14/16 0350 08/14/16 0350 Results 24 hrs Laboratory Tests Test 08/14/16 02:00 08/14/16 03:50 08/14/16 05:45 08/14/16 06:28 Arterial Blood HCO3 28.7 H 28.3 H 29.9 H Arterial Blood Base Excess 0.3 0.8 1.9 Arterial Blood Oxygen Saturation 99.2 94.8 L 95.6 [place] Test ACCEPTAB ACCEPTAB ACCEPTAB Arterial Blood Gas Puncture Site Right Radial Right Radial Right Radial Arterial Blood Carboxyhemoglobin 0.2 0 0.3 Arterial Blood Date Drawn 08/14/2016 2:00:12 AM 08/14/2016 5:40:52 AM 08/14/2016 6:54:20 AM Arterial Blood Methemoglobin 0.5 0.5 0.5 Arterial Blood pCO2 (Temp correct) 66.3 H 60.7 H 66.7 H Arterial Blood pH (Temp corrected) 7.254 *L 7.286 *L 7.270 *L Arterial Blood pO2 (Temp corrected) 344.9 H 77.6 L 86.1 Blood Gas A-a O2 Differential 301.8 H 86.8 H 122.4 H Blood Gas Critical Value Read Back HALIMA BLANCHARD RN Blood Gas Modality MASK - NRB NASAL CANNULA MASK - BIPAP Blood Gas Notified Time 08/14/2016 2:11:18 AM 08/14/2016 5:59:40 AM 08/14/2016 7:03:03 AM Blood Gas Notified Whom KEVIN BROWN TM Blood Gas Specimen Source Blood arterial Blood arterial Blood arterial Blood Gas Temperature 37.0 37.0 37.0 FiO2 100.0 33.0 40.0 Oxyhemoglobin Percent 98.5 94.3 94.8 Total Hemoglobin 11.3 L 10.2 L 10.2 L Alanine Aminotransferase (ALT/SGPT) 27 Albumin 2.5 L Albumin/Globulin Ratio 0.71 Alkaline Phosphatase 57 Anion Gap 10 Aspartate Amino Transf (AST/SGOT) 19 Basophils # 0.0 Basophils % 0.1 Blood Urea Nitrogen 13 Calcium Level 7.6 L Carbon Dioxide Level 31 Chloride Level 106 Creatinine 0.93 Direct Bilirubin 0.00 Eosinophils # 0.2 Eosinophils % 3.1 Globulin 3.50 H Glucose Level 100 Hematocrit 30.1 #L Hemoglobin 9.3 #L Indirect Bilirubin 0.2 Lymphocytes # 1.8 Lymphocytes % 25.7 Magnesium Level 2.1 Mean Corpuscular Hemoglobin 30.5 Mean Corpuscular Hemoglobin Concent 30.9 L Mean Corpuscular Volume 98.7 Mean Platelet Volume 10.4 Monocytes # 0.5 Monocytes % 7.1 Neutrophils # 4.5 Neutrophils % 63.0 Nucleated Red Blood Cells # 0.0 Nucleated Red Blood Cells % 0.0 Phosphorus Level 2.6 Platelet Count 162 Potassium Level 4.2 Red Blood Count 3.05 #L Red Cell Distribution Width 17.9 H Sodium Level 143 Total Bilirubin 0.2 Total Protein 6.0 L White Blood Count 7.1 # Blood Gas Actual Respiration Rate 17 Blood Gas IPAP/EPAP Ratio 15/5 Blood Gas Pressure Support 10 Blood Gas Respiration Rate 16.0 Test 08/14/16 10:25 Vancomycin Level Trough 10.9 Medications Medications Current Medications Aspirin (Halfprin) 81 mg DAILY PO Last administered on 08/14/16 08:14; Admin Dose 81 MG; Start 08/12/16 at 09:00 Clopidogrel Bisulfate (plaVIX) 75 mg DAILY PO Last administered on 08/14/16 08: 13; Admin Dose 75 MG; Start 08/12/16 at 09:00 Ferrous Sulfate (Ferrous Sulfate (Ec)) 325 mg BID PO Last administered on 08:13; Admin Dose 325 MG; Start 08/11/16 at 21:00 Finasteride (Proscar) 5 mg DAILY PO Last administered on 08/14/16 08:13; Admin Dose 5 MG; Start 08/12/16 at 09:00 Fluticasone Propionate (Flonase 0.05% Nasal) 1 spray BID NASAL Last administered on 08/14/16 08:15; Admin Dose 1 SPRAY; Start 08/11/16 at 21:00 Gabapentin (Neurontin) 300 mg TID PO Last administered on 08/14/16 13:29; Admin Dose 300 MG; Start 08/11/16 at 21:00 Guaifenesin/ Dextromethorphan (Robitussin Dm Liquid Cup) 10 ml Q4H PRN PO COUGH ; Start 08/11/16 at 17:00 Lactobacillus Acidoph/Bulgaricus (Floranex) 1 tab TID PO Last administered on 13:29; Admin Dose 1 TAB; Start 08/11/16 at 21:00 Montelukast Sodium (Singulair) 10 mg HS PO Last administered on 08/13/16 20:16 ; Admin Dose 10 MG; Start 08/11/16 at 21:00 Multivitamins Therapeutic (Theragran) 1 tab DAILY PO Last administered on 08:13; Admin Dose 1 TAB; Start 08/12/16 at 09:00 Oxycodone/ Acetaminophen (Endocet (10/ 325)) 1 tab Q6 PRN PO PAIN Last administered on 08/13/16 16:22; Admin Dose 1 TAB; Start 08/11/16 at 17:00 Pantoprazole (Protonix Tab) 40 mg DAILY PO Last administered on 08/14/16 09:00 ; Admin Dose 40 MG; Start 08/12/16 at 09:00 Salmeterol Xinafoate/ Fluticasone (Advair 500/50 Diskus) 1 inh BID INH Last administered on 08/14/16 08:15; Admin Dose 1 INH; Start 08/11/16 at 21:00 Tamsulosin HCl (Flomax) 0.4 mg HS PO Last administered on 08/13/16 20:14; Admin Dose 0.4 MG; Start 08/11/16 at 21:00 Tiotropium [place] (Spiriva) 1 inh DAILY INH Last administered on 08/14/16 08: 19; Admin Dose 1 INH; Start 08/12/16 at 09:00 Guaifenesin/ Dextromethorphan (Mucinex Dm) 1 tab BID PO Last administered on 08:13; Admin Dose 1 TAB; Start 08/12/16 at 09:00 Fish Oil (Fish Oil) 1,000 mg DAILY PO Last administered on 08/14/16 08:14; Admin Dose 1,000 MG; Start 08/12/16 at 09:00 Atorvastatin Calcium (Lipitor) 20 mg DAILY@21 PO Last administered on 08/13/16 20:15; Admin Dose 20 MG; Start 08/11/16 at 21:58 Ondansetron HCl (Zofran Inj) 4 mg Q6H PRN IV NAUSEA AND/OR VOMITING Last administered on 08/14/16 06:28; Admin Dose 4 MG; Start 08/11/16 at 17:00 Nitroglycerin (Nitroglycerin (Sl Tab) 0.4 Mg) 1 tab Q5M PRN SL CHEST PAIN; Start 08/11/16 at 17:00 Acetaminophen (Tylenol Tab) 650 mg Q6H PRN PO PAIN LEVEL 1-3 OR FEVER; Start at 17:00 Morphine Sulfate (morphine) 2 mg Q4H PRN IV PAIN LEVEL 7-10; Start 08/11/16 at 17:00 Docusate Sodium (Colace) 100 mg Q12H PRN PO CONSTIPATION; Start 08/11/16 at 17: 00 Magnesium Hydroxide (Milk Of Mag) 30 ml DAILY PRN PO CONSTIPATION; Start at 17:00 Bisacodyl 10 mg 10 mg DAILY PRN IN CONSTIPATION; Start 08/11/16 at 17:00 Piperacillin Sod/ Tazobactam Sod 100 ml @ 200 mls/hr Q8 IVPB Last administered on 08/14/16 13:29; Admin Dose 200 MLS/HR; Start 08/11/16 at 22:00 Vancomycin HCl (Vancocin) 250 ml @ 125 mls/hr Q24H IVPB Last administered on 10:45; Admin Dose 125 MLS/HR; Start 08/12/16 at 11:00 IV Flush (NS 10 ml) 10 ml PRN PRN IV IV PROTOCOL; Start 08/12/16 at 18:30 Silver Sulfadiazine (Thermazene 1% 25 Gm) 1 applic DAILY TOP Last administered on 08/14/16 09:00; Admin Dose 1 APPLIC; Start 08/13/16 at 12:00 Amiodarone HCl (Cordarone) 400 mg BID PO Last administered on 08/14/16 08:14; Admin Dose 400 MG; Start 08/13/16 at 13:30 Mupirocin (Bactroban) 1 applic BID TOP Last administered on 08/14/16 09:00; Admin Dose 1 APPLIC; Start 08/13/16 at 21:00; Stop 08/27/16 at 20:59 Procedures Procedures PROCEDURE: XR Chest. CLINICAL INDICATION: Shortness of breath. Evaluate for fluid overload. TECHNIQUE: Chest x-ray, single view. COMPARISON: 08/12/2016. FINDINGS: The heart is enlarged and unchanged in size and configuration. A dual-chamber AICD is in place. A right atrial pacemaker lead is also present. Aortic arch atherosclerotic calcification is present. Low lung volumes are observed. Pulmonary vascular prominence has increased. In addition, there is slight increase in patchy parenchymal opacification. A right upper extremity PICC terminates within the lower SVC. Bony demineralization is present. Evidence of vertebroplasty is seen within the spine. Evidence of aortic valve replacement is also observed. IMPRESSION: Low lung volumes with increased pulmonary vascular prominence and patchy pulmonary parenchymal opacification. RPTAT: HLST RICHIE SWEET Aug 14, 2016 13:41
[2016-08-14 14:39] LABS: AADO2 Arterial 99.7 mmHg (7.0-24.0); Allen Test ACCEPTAB; Arterial Base Excess 2.1 mmol/L (-3.0-3); Arterial COHb 0.3 % (0.0-3.0); Arterial Fraction of Oxyhgb 93.5 % (93.0-99.0); Arterial HCO3 29.9 mmol/L (22.0-26.0); Arterial MetHb 0.4 % (0.0-1.5); Arterial Total Hemglobin 10.1 g/dl (12.0-18.0); MODE MASK - VENTI
[2016-08-14] MEDS: FUROSEMIDE 40 MG INJ IV SCH (17:19)
[2016-08-14 21:12] LABS: AADO2 Arterial 112.8 mmHg (7.0-24.0); Allen Test ACCEPTAB; Arterial COHb 0.2 % (0.0-3.0); Arterial Fraction of Oxyhgb 96.4 % (93.0-99.0); Arterial HCO3 30.4 mmol/L (22.0-26.0); Arterial MetHb 0.5 % (0.0-1.5); Arterial Total Hemglobin 10.2 g/dl (12.0-18.0); MODE HFNC
[2016-08-14] MEDS: TAMSULOSIN (SR) 0.4 MG CAP PO SCH (21:14)
[2016-08-14] MEDS: ATORVASTATIN 20 MG TAB PO SCH (21:16)
[2016-08-14] MEDS: MONTELUKAST 10 MG TAB PO SCH (21:16)
[2016-08-15] VITALS (24 sets, daily range): BP systolic 64–132; BP diastolic 42–68; PULSE 62–86; RESP 10–31
[2016-08-15] MEDS: LEVALBUTEROL (NEB) 0.63 MG/3 ML AMP HHN SCH ×3 (00:06→14:30)
[2016-08-15 05:01] LABS: ADD SCAN DIFF NO
[2016-08-15 05:18] LABS: POTASSIUM 3.2 mmol/L (3.5-5.1)
[2016-08-15 05:21] LABS: BASOPHILS % 0.2 % (0.0-2.0); CREATININE 0.95 mg/dl (0.61-1.24); EOSINOPHILS # 0.3 10^3/ul (0.0-0.5); EOSINOPHILS % 4.3 % (0.0-7.0); HEMATOCRIT 27.8 % (42.0-52.0); HEMOGLOBIN 8.6 g/dl (14.0-18.0); LYMPHOCYTES # 1.5 10^3/ul (0.8-2.9); LYMPHOCYTES % 26.6 % (15.0-51.0); MEAN CORPUSCULAR HEMOGLOBIN 30.7 pg (29.0-33.0); MEAN CORPUSCULAR HGB CONC 30.9 g/dl (32.0-37.0); MEAN CORPUSCULAR VOLUME 99.3 fl (82.0-101.0); MONOCYTE # 0.5 10^3/ul (0.3-0.9); MONOCYTES % 8.5 % (0.0-11.0); NEUTROPHIL # 3.4 10^3/ul (1.6-7.5); NEUTROPHILS % 59.5 % (39.0-77.0); PLATELET COUNT 144 10^3/UL (140-415); RED CELL DISTRIBUTION WIDTH 17.7 % (11.5-14.5); WHITE BLOOD COUNT 5.8 10^3/ul (4.8-10.8)
[2016-08-15 05:22] LABS: CALCIUM 7.7 mg/dl (8.4-10.2)
[2016-08-15] MEDS: FUROSEMIDE 40 MG INJ IV SCH ×2 (06:08→17:12)
[2016-08-15] MEDS: PIPER-TAZO 3.375 GM IV (PMX) 100 ML IVPB SCH ×3 (06:08→21:55)
[2016-08-15] MEDS: ONDANSETRON 4 MG INJ IV PRN (06:12)
[2016-08-15 07:11] LABS: MAGNESIUM 1.7 mg/dl (1.7-2.5); PHOSPHORUS 2.7 mg/dl (2.5-4.9)
--- NOTE | 2016-08-15 07:58 | CONS ---
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 Chronic obstructive pulmonary disease on home oxygen. Acute blood loss anemia status post blood transfusion Problems: Additional Assessment/Plan 1) continue diuresis 2) no sharon or beta mayela due to hypotension 3) ABX Consultation Date/Type/Reason Admit Date/Time Aug 11, 2016 at 16:21 Initial Consult Date 08/14/16 Type of Consultation: cv 24 HR Interval Summary Subjective hx not possible: pt non-verbal Detailed Summary Respiratory: no complaints Cardiovascular: no complaints Gastrointestinal: no complaints Musculoskeletal: no complaints Skin: bruising Exam/Review of Systems Vital Signs Vitals Vital Signs Date Time Temp Pulse Resp B/P Pulse Ox O2 Delivery O2 Flow Rate FiO2 08/15/16 07:00 73 19 118/49 97 High Flow 08/15/16 04:46 35 08/15/16 04:00 98.6 08/14/16 16:00 9.0 Intake and Output 08/14/16 08/14/16 08/15/16 15:00 23:00 07:00 Intake Total 440 ml 200 ml 200 ml Output Total 530 ml 590 ml 370 ml Balance -90 ml -390 ml -170 ml Exam Constitutional: frail Head: atraumatic, normocephalic Neck: jvd Respiratory: diminished breath sounds Cardiovascular: irregular rhythm Gastrointestinal: soft Musculoskeletal: swelling Results Result Diagram: 08/15/16 0450 08/15/16 0450 Results 24 hrs Laboratory Tests Test 08/14/16 10:25 08/14/16 14:15 08/14/16 21:00 08/15/16 04:50 Vancomycin Level Trough 10.9 Arterial Blood HCO3 29.9 H 30.4 H Arterial Blood Base Excess 2.1 3.0 Arterial Blood Oxygen Saturation 94.2 L 97.1 [place] Test ACCEPTAB ACCEPTAB Arterial Blood Gas Puncture Site Right Radial Right Radial Arterial Blood Carboxyhemoglobin 0.3 0.2 Arterial Blood Date Drawn 08/14/2016 2:30:09 PM 08/14/2016 9:00:04 PM Arterial Blood Methemoglobin 0.4 0.5 Arterial Blood pCO2 (Temp correct) 64.4 H 62.4 H Arterial Blood pH (Temp corrected) 7.284 *L 7.305 L Arterial Blood pO2 (Temp corrected) 75.0 L 100.6 H Blood Gas A-a O2 Differential 99.7 H 112.8 H Blood Gas Critical Value Read Back Y SANTO RN Blood Gas Modality MASK - VENTI HFNC Blood Gas Notified Time 08/14/2016 2:39:49 PM 08/14/2016 9:12:04 PM Blood Gas Notified Whom DERRICK LUCERO [employer]PHOL[employer] MECHANIC Blood Gas Specimen Source Blood arterial Blood arterial Blood Gas Temperature 37.0 37.0 FiO2 35.0 40.0 Oxyhemoglobin Percent 93.5 96.4 Total Hemoglobin 10.1 L 10.2 L Blood Gas Actual Respiration Rate 22 Anion Gap 11 Basophils # 0.0 Basophils % 0.2 Blood Urea Nitrogen 14 Calcium Level 7.7 L Carbon Dioxide Level 32 H Chloride Level 104 Creatinine 0.95 Eosinophils # 0.3 Eosinophils % 4.3 Glucose Level 78 Hematocrit 27.8 L Hemoglobin 8.6 L Lymphocytes # 1.5 Lymphocytes % 26.6 Magnesium Level 1.7 Mean Corpuscular Hemoglobin 30.7 Mean Corpuscular Hemoglobin Concent 30.9 L Mean Corpuscular Volume 99.3 Mean Platelet Volume 10.0 Monocytes # 0.5 Monocytes % 8.5 Neutrophils # 3.4 Neutrophils % 59.5 Nucleated Red Blood Cells # 0.0 Nucleated Red Blood Cells % 0.0 Phosphorus Level 2.7 Platelet Count 144 Potassium Level 3.2 L Red Blood Count 2.80 L Red Cell Distribution Width 17.7 H Sodium Level 144 White Blood Count 5.8 Medications Medications Current Medications Aspirin (Halfprin) 81 mg DAILY PO Last administered on 08/14/16 08:14; Admin Dose 81 MG; Start 08/12/16 at 09:00 Clopidogrel Bisulfate (plaVIX) 75 mg DAILY PO Last administered on 08/14/16 08: 13; Admin Dose 75 MG; Start 08/12/16 at 09:00 Ferrous Sulfate (Ferrous Sulfate (Ec)) 325 mg BID PO Last administered on 21:17; Admin Dose 325 MG; Start 08/11/16 at 21:00 Finasteride (Proscar) 5 mg DAILY PO Last administered on 08/14/16 08:13; Admin Dose 5 MG; Start 08/12/16 at 09:00 Fluticasone Propionate (Flonase 0.05% Nasal) 1 spray BID NASAL Last administered on 08/14/16 21:12; Admin Dose 1 SPRAY; Start 08/11/16 at 21:00 Gabapentin (Neurontin) 300 mg TID PO Last administered on 08/14/16 21:15; Admin Dose 300 MG; Start 08/11/16 at 21:00 Guaifenesin/ Dextromethorphan (Robitussin Dm Liquid Cup) 10 ml Q4H PRN PO COUGH ; Start 08/11/16 at 17:00 Lactobacillus Acidoph/Bulgaricus (Floranex) 1 tab TID PO Last administered on 21:18; Admin Dose 1 TAB; Start 08/11/16 at 21:00 Montelukast Sodium (Singulair) 10 mg HS PO Last administered on 08/14/16 21:16 ; Admin Dose 10 MG; Start 08/11/16 at 21:00 Multivitamins Therapeutic (Theragran) 1 tab DAILY PO Last administered on 08:13; Admin Dose 1 TAB; Start 08/12/16 at 09:00 Oxycodone/ Acetaminophen (Endocet (10/ 325)) 1 tab Q6 PRN PO PAIN Last administered on 08/13/16 16:22; Admin Dose 1 TAB; Start 08/11/16 at 17:00 Pantoprazole (Protonix Tab) 40 mg DAILY PO Last administered on 08/14/16 09:00 ; Admin Dose 40 MG; Start 08/12/16 at 09:00 Salmeterol Xinafoate/ Fluticasone (Advair 500/50 Diskus) 1 inh BID INH Last administered on 08/14/16 21:11; Admin Dose 1 INH; Start 08/11/16 at 21:00 Tamsulosin HCl (Flomax) 0.4 mg HS PO Last administered on 08/14/16 21:14; Admin Dose 0.4 MG; Start 08/11/16 at 21:00 Tiotropium [place] (Spiriva) 1 inh DAILY INH Last administered on 08/14/16 08: 19; Admin Dose 1 INH; Start 08/12/16 at 09:00 Guaifenesin/ Dextromethorphan (Mucinex Dm) 1 tab BID PO Last administered on 21:18; Admin Dose 1 TAB; Start 08/12/16 at 09:00 Fish Oil (Fish Oil) 1,000 mg DAILY PO Last administered on 08/14/16 08:14; Admin Dose 1,000 MG; Start 08/12/16 at 09:00 Atorvastatin Calcium (Lipitor) 20 mg DAILY@21 PO Last administered on 08/14/16 21:16; Admin Dose 20 MG; Start 08/11/16 at 21:58 Ondansetron HCl (Zofran Inj) 4 mg Q6H PRN IV NAUSEA AND/OR VOMITING Last administered on 08/15/16 06:12; Admin Dose 4 MG; Start 08/11/16 at 17:00 Nitroglycerin (Nitroglycerin (Sl Tab) 0.4 Mg) 1 tab Q5M PRN SL CHEST PAIN; Start 08/11/16 at 17:00 Acetaminophen (Tylenol Tab) 650 mg Q6H PRN PO PAIN LEVEL 1-3 OR FEVER; Start at 17:00 Morphine Sulfate (morphine) 2 mg Q4H PRN IV PAIN LEVEL 7-10; Start 08/11/16 at 17:00 Docusate Sodium (Colace) 100 mg Q12H PRN PO CONSTIPATION; Start 08/11/16 at 17: 00 Magnesium Hydroxide (Milk Of Mag) 30 ml DAILY PRN PO CONSTIPATION; Start at 17:00 Bisacodyl 10 mg 10 mg DAILY PRN HI CONSTIPATION; Start 08/11/16 at 17:00 Piperacillin Sod/ Tazobactam Sod 100 ml @ 200 mls/hr Q8 IVPB Last administered on 08/15/16 06:08; Admin Dose 200 MLS/HR; Start 08/11/16 at 22:00 Vancomycin HCl (Vancocin) 250 ml @ 125 mls/hr Q24H IVPB Last administered on 10:45; Admin Dose 125 MLS/HR; Start 08/12/16 at 11:00 IV Flush (NS 10 ml) 10 ml PRN PRN IV IV PROTOCOL; Start 08/12/16 at 18:30 Silver Sulfadiazine (Thermazene 1% 25 Gm) 1 applic DAILY TOP Last administered on 08/14/16 09:00; Admin Dose 1 APPLIC; Start 08/13/16 at 12:00 Amiodarone HCl (Cordarone) 400 mg BID PO Last administered on 08/14/16 21:14; Admin Dose 400 MG; Start 08/13/16 at 13:30 Mupirocin (Bactroban) 1 applic BID TOP Last administered on 08/14/16 21:20; Admin Dose 1 APPLIC; Start 08/13/16 at 21:00; Stop 08/27/16 at 20:59 MARC SIGALA MD Aug 15, 2016 07:58
[2016-08-15 08:41] LABS: Allen Test ACCEPTAB; Arterial Base Excess 3.3 mmol/L (-3.0-3); Arterial COHb 0.2 % (0.0-3.0); Arterial Fraction of Oxyhgb 95.4 % (93.0-99.0); Arterial MetHb 0.4 % (0.0-1.5); Arterial Total Hemglobin 9.6 g/dl (12.0-18.0); MODE HFNC
[2016-08-15] MEDS: LACTOBACILLUS CHEW TAB PO SCH ×3 (09:20→20:45)
[2016-08-15] MEDS: ASPIRIN (EC) 81 MG TAB PO SCH (09:20)
[2016-08-15] MEDS: CLOPIDOGREL 75 MG TAB PO SCH (09:21)
[2016-08-15] MEDS: FISH OIL 1,000 MG CAP PO SCH (09:21)
[2016-08-15] MEDS: MULTIVITAMINS THERAPEUTIC TAB PO SCH (09:21)
[2016-08-15] MEDS: GABAPENTIN 300 MG CAP PO SCH ×3 (09:21→20:46)
[2016-08-15] MEDS: FINASTERIDE 5 MG TAB PO SCH (09:21)
[2016-08-15] MEDS: FERROUS SULFATE (EC) 325 MG TAB PO SCH ×2 (09:21→20:45)
[2016-08-15] MEDS: AMIODARONE 200 MG TAB PO SCH ×2 (09:21→20:46)
[2016-08-15] MEDS: PANTOPRAZOLE (EC) 40 MG TAB PO SCH (09:21)
[2016-08-15] MEDS: GUAIFENESIN/DM (SR) TAB PO SCH ×2 (09:23→20:45)
[2016-08-15] MEDS: TIOTROPIUM 18 MCG CAPSULE INHA DEV INH SCH (09:24)
[2016-08-15] MEDS: FLUTICASONE 0.05% 16 GM NAS SPRAY NASAL SCH ×2 (09:24→20:45)
[2016-08-15] MEDS: SILVER SULFADIAZINE 1% 25 GM CR TOP SCH (09:25)
[2016-08-15] MEDS: SALMETEROL/FLUTICASONE 500/50 INHA INH SCH ×2 (09:25→20:44)
[2016-08-15] MEDS: MUPIROCIN 2% 22 GM OINT TOP SCH ×2 (09:25→20:46)
--- NOTE | 2016-08-15 10:07 | PN ---
Date/Time of Note Date/Time of Note DATE: 08/15/16 TIME: 09:59 Assessment/Plan VTE Prophylaxis VTE Prophylaxis Intervention: SCD's Lines/Catheters IV Catheter Type (from Nrsg): PICC Line Central line still needed: Yes (for IV access ) Urinary Cath still in place: Yes Reason Cath still needed: urinary retention (chronic ) Assessment/Plan Assessment/Plan 81-year-old male with: 1. Resolved Hypotension. Lower extremity erythema almost resolved, BP better In volume overload, diuresing and Off IVF On Amio for Afib/flutter. Still with rates between 80-120's Continue antibiotics with Zosyn and vancomycin. 2. Coronary artery disease with ischemic cardiomyopathy, status post transcatheter aortic valve replacement, status post biventricular pacer placement. Elevated troponins, trending down and Cardiology following, latest EF 45 to 50% Continue current cardiac medications including Aspirin and Plavix. On Amiodarone with atrial fibrillation/atrial flutter. Monitoring volume status closely, on diuresis. 3. Acute respiratory failure with known chronic hypoxemia, chronic obstructive pulmonary disease. On 2L NC chronically but now on Hi Flow given acute decompensation of respiratory status due to volume overload Continue Lasix for diuresis Continue nebulizer treatment, Advair and Spiriva at this time. CXR in AM 4. Bilateral lower extremity erythema concerning for cellulitis given his presentation. Improving Continue vancomycin and Zosyn. 5. Chronic kidney disease. Renal function stable. Replete K and Mag 6. 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 UA positive and Urine culture with Pseudomonas sensitive to Zosyn. Linton catheter changed on this admission. Continue current abx based on culture results 7. Acute on chronic Anemia of chronic disease: s/p 2 units pRBC. Monitor Hb 8. Hypertension. Currently normo to hypotensive, all BP medications held. BP stable on diuresis. 9. Hypothyroidism. Continue current meds. 10. Temporal arteritis, stable. Prophylaxis: SCDs for DVT prophylaxis and Protonix for GI prophylaxis. DISPOSITION: In ICU with respiratory distress, A flutter and multiple end organ dysfunctions. On amiodarone drip, IV antibiotics, diuresis. Cardiology and Pulmonary following. Subjective 24 Hr Interval Summary Free Text/Dictation Patient more alert and oriented, back to baseline On Hi Flow, Afebrile and with productive cough Diuresing well and Hypotension resolved now Exam/Review of Systems Vital Signs Vitals Vital Signs Date Time Temp Pulse Resp B/P Pulse Ox O2 Delivery O2 Flow Rate FiO2 08/15/16 09:06 100 35 08/15/16 09:04 77 17 08/15/16 07:00 118/49 High Flow 08/15/16 04:00 98.6 08/14/16 16:00 9.0 Intake and Output 08/14/16 08/14/16 08/15/16 15:00 23:00 07:00 Intake Total 440 ml 200 ml 200 ml Output Total 530 ml 590 ml 370 ml Balance -90 ml -390 ml -170 ml Exam Constitutional: alert, frail, oriented Respiratory: crackles/rales, diminished breath sounds (bilaterally ), other ( on Hi flow ) Cardiovascular: irregular rhythm (A flutter ) Gastrointestinal: non-tender, soft Genitourinary - Male: other (linton in place with good output ) Extremities: edema (better ), normal pulses 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: MOLD RUNNER II-XII intact, nl mental status, nl speech, other ( generalised weakness ) Skin: other (LE erythema better ) Results Result Diagram: 08/15/16 0450 08/15/16 0450 Results 24 hrs Laboratory Tests Test 08/14/16 10:25 08/14/16 14:15 08/14/16 21:00 08/15/16 04:50 Vancomycin Level Trough 10.9 Arterial Blood HCO3 29.9 H 30.4 H Arterial Blood Base Excess 2.1 3.0 Arterial Blood Oxygen Saturation 94.2 L 97.1 [place] Test ACCEPTAB ACCEPTAB Arterial Blood Gas Puncture Site Right Radial Right Radial Arterial Blood Carboxyhemoglobin 0.3 0.2 Arterial Blood Date Drawn 08/14/2016 2:30:09 PM 08/14/2016 9:00:04 PM Arterial Blood Methemoglobin 0.4 0.5 Arterial Blood pCO2 (Temp correct) 64.4 H 62.4 H Arterial Blood pH (Temp corrected) 7.284 *L 7.305 L Arterial Blood pO2 (Temp corrected) 75.0 L 100.6 H Blood Gas A-a O2 Differential 99.7 H 112.8 H Blood Gas Critical Value Read Back Y SANTO RN Blood Gas Modality MASK - VENTI HFNC Blood Gas Notified Time 08/14/2016 2:39:49 PM 08/14/2016 9:12:04 PM Blood Gas Notified Whom DERRICK [facility]eline[facility]ARC[facility] Blood Gas Specimen Source Blood arterial Blood arterial Blood Gas Temperature 37.0 37.0 FiO2 35.0 40.0 Oxyhemoglobin Percent 93.5 96.4 Total Hemoglobin 10.1 L 10.2 L Blood Gas Actual Respiration Rate 22 Anion Gap 11 Basophils # 0.0 Basophils % 0.2 Blood Urea Nitrogen 14 Calcium Level 7.7 L Carbon Dioxide Level 32 H Chloride Level 104 Creatinine 0.95 Eosinophils # 0.3 Eosinophils % 4.3 Glucose Level 78 Hematocrit 27.8 L Hemoglobin 8.6 L Lymphocytes # 1.5 Lymphocytes % 26.6 Magnesium Level 1.7 Mean Corpuscular Hemoglobin 30.7 Mean Corpuscular Hemoglobin Concent 30.9 L Mean Corpuscular Volume 99.3 Mean Platelet Volume 10.0 Monocytes # 0.5 Monocytes % 8.5 Neutrophils # 3.4 Neutrophils % 59.5 Nucleated Red Blood Cells # 0.0 Nucleated Red Blood Cells % 0.0 Phosphorus Level 2.7 Platelet Count 144 Potassium Level 3.2 L Red Blood Count 2.80 L Red Cell Distribution Width 17.7 H Sodium Level 144 White Blood Count 5.8 Test 08/15/16 07:00 Arterial Blood HCO3 30.0 H Arterial Blood Base Excess 3.3 H Arterial Blood Oxygen Saturation 96.0 [place] Test ACCEPTAB Arterial Blood Gas Puncture Site Right Radial Arterial Blood Carboxyhemoglobin 0.2 Arterial Blood Date Drawn 08/15/2016 8:15:21 AM Arterial Blood Methemoglobin 0.4 Arterial Blood pCO2 (Temp correct) 58.0 H Arterial Blood pH (Temp corrected) 7.332 L Arterial Blood pO2 (Temp corrected) 82.8 Blood Gas A-a O2 Differential 63.0 H Blood Gas Modality NC Blood Gas Notified Time 08/15/2016 8:41:18 AM Blood Gas Notified Whom Blood Gas Specimen Source Blood arterial Blood Gas Temperature 37.0 FiO2 30.0 Oxyhemoglobin Percent 95.4 Total Hemoglobin 9.6 L Medications Medications Current Medications Aspirin (Halfprin) 81 mg DAILY PO Last administered on 08/15/16 09:20; Admin Dose 81 MG; Start 08/12/16 at 09:00 Clopidogrel Bisulfate (plaVIX) 75 mg DAILY PO Last administered on 08/15/16 09: 21; Admin Dose 75 MG; Start 08/12/16 at 09:00 Ferrous Sulfate (Ferrous Sulfate (Ec)) 325 mg BID PO Last administered on 09:21; Admin Dose 325 MG; Start 08/11/16 at 21:00 Finasteride (Proscar) 5 mg DAILY PO Last administered on 08/15/16 09:21; Admin Dose 5 MG; Start 08/12/16 at 09:00 Fluticasone Propionate (Flonase 0.05% Nasal) 1 spray BID NASAL Last administered on 08/15/16 09:24; Admin Dose 1 SPRAY; Start 08/11/16 at 21:00 Gabapentin (Neurontin) 300 mg TID PO Last administered on 08/15/16 09:21; Admin Dose 300 MG; Start 08/11/16 at 21:00 Guaifenesin/ Dextromethorphan (Robitussin Dm Liquid Cup) 10 ml Q4H PRN PO COUGH ; Start 08/11/16 at 17:00 Lactobacillus Acidoph/Bulgaricus (Floranex) 1 tab TID PO Last administered on 09:20; Admin Dose 1 TAB; Start 08/11/16 at 21:00 Montelukast Sodium (Singulair) 10 mg HS PO Last administered on 08/14/16 21:16 ; Admin Dose 10 MG; Start 08/11/16 at 21:00 Multivitamins Therapeutic (Theragran) 1 tab DAILY PO Last administered on 09:21; Admin Dose 1 TAB; Start 08/12/16 at 09:00 Oxycodone/ Acetaminophen (Endocet (10/ 325)) 1 tab Q6 PRN PO PAIN Last administered on 08/13/16 16:22; Admin Dose 1 TAB; Start 08/11/16 at 17:00 Pantoprazole (Protonix Tab) 40 mg DAILY PO Last administered on 08/15/16 09:21 ; Admin Dose 40 MG; Start 08/12/16 at 09:00 Salmeterol Xinafoate/ Fluticasone (Advair 500/50 Diskus) 1 inh BID INH Last administered on 08/15/16 09:25; Admin Dose 1 INH; Start 08/11/16 at 21:00 Tamsulosin HCl (Flomax) 0.4 mg HS PO Last administered on 08/14/16 21:14; Admin Dose 0.4 MG; Start 08/11/16 at 21:00 Tiotropium [place] (Spiriva) 1 inh DAILY INH Last administered on 08/15/16 09: 24; Admin Dose 1 INH; Start 08/12/16 at 09:00 Guaifenesin/ Dextromethorphan (Mucinex Dm) 1 tab BID PO Last administered on 09:23; Admin Dose 1 TAB; Start 08/12/16 at 09:00 Fish Oil (Fish Oil) 1,000 mg DAILY PO Last administered on 08/15/16 09:21; Admin Dose 1,000 MG; Start 08/12/16 at 09:00 Atorvastatin Calcium (Lipitor) 20 mg DAILY@21 PO Last administered on 08/14/16 21:16; Admin Dose 20 MG; Start 08/11/16 at 21:58 Ondansetron HCl (Zofran Inj) 4 mg Q6H PRN IV NAUSEA AND/OR VOMITING Last administered on 08/15/16 06:12; Admin Dose 4 MG; Start 08/11/16 at 17:00 Nitroglycerin (Nitroglycerin (Sl Tab) 0.4 Mg) 1 tab Q5M PRN SL CHEST PAIN; Start 08/11/16 at 17:00 Acetaminophen (Tylenol Tab) 650 mg Q6H PRN PO PAIN LEVEL 1-3 OR FEVER; Start at 17:00 Morphine Sulfate (morphine) 2 mg Q4H PRN IV PAIN LEVEL 7-10; Start 08/11/16 at 17:00 Docusate Sodium (Colace) 100 mg Q12H PRN PO CONSTIPATION; Start 08/11/16 at 17: 00 Magnesium Hydroxide (Milk Of Mag) 30 ml DAILY PRN PO CONSTIPATION; Start at 17:00 Bisacodyl 10 mg 10 mg DAILY PRN [place] CONSTIPATION; Start 08/11/16 at 17:00 Piperacillin Sod/ Tazobactam Sod 100 ml @ 200 mls/hr Q8 IVPB Last administered on 08/15/16 06:08; Admin Dose 200 MLS/HR; Start 08/11/16 at 22:00 Vancomycin HCl (Vancocin) 250 ml @ 125 mls/hr Q24H IVPB Last administered on 10:45; Admin Dose 125 MLS/HR; Start 08/12/16 at 11:00 IV Flush (NS 10 ml) 10 ml PRN PRN IV IV PROTOCOL; Start 08/12/16 at 18:30 Silver Sulfadiazine (Thermazene 1% 25 Gm) 1 applic DAILY TOP Last administered on 08/15/16 09:25; Admin Dose 1 APPLIC; Start 08/13/16 at 12:00 Amiodarone HCl (Cordarone) 400 mg BID PO Last administered on 08/15/16 09:21; Admin Dose 400 MG; Start 08/13/16 at 13:30 Mupirocin (Bactroban) 1 applic BID TOP Last administered on 08/15/16 09:25; Admin Dose 1 APPLIC; Start 08/13/16 at 21:00; Stop 08/27/16 at 20:59 RICHIE SWEET Aug 15, 2016 10:06
[2016-08-15] MEDS ORDERED: POTASSIUM CHLORIDE (SR) 20 MEQ TAB PO STA (10:10)
[2016-08-15] MEDS ORDERED: MAGNESIUM SULFATE 2 GM/50 ML 50 ML IVPB ONE (10:30)
[2016-08-15] MEDS: DOCUSATE SODIUM 100 MG CAP PO SCH ×2 (11:07→20:45)
[2016-08-15] MEDS: VANCOMYCIN 1 GM in NS 250 ML IVPB SCH (11:46)
--- NOTE | 2016-08-15 12:53 | CONS ---
Date/Time of Note Date/Time of Note DATE: 08/15/16 TIME: 12:50 Consult Date/Type/Reason Admit Date/Time Aug 11, 2016 at 16:21 Initial Consult Date 08/14/16 Type of Consultation: Pulm Subjective On high flow NC. Appears comfortable. Objective Vital Signs Date Time Temp Pulse Resp B/P Pulse Ox O2 Delivery O2 Flow Rate FiO2 08/15/16 12:00 71 08/15/16 12:00 97.2 19 117/45 93 High Flow 08/15/16 09:06 35 08/14/16 16:00 9.0 Intake and Output 08/14/16 08/14/16 08/15/16 15:00 23:00 07:00 Intake Total 440 ml 200 ml 200 ml Output Total 530 ml 590 ml 370 ml Balance -90 ml -390 ml -170 ml HEENT: Neck supple; no JVD; no LAD CVS: RRR, S1 and S2, 3/6 sys murmur CHEST: bilateral rales ABD: Soft, NT, + BS EXT: No c/c + edema Results/Medications Result Diagram: 08/15/16 0450 08/15/16 0450 Results 24 hrs Laboratory Tests Test 08/14/16 14:15 08/14/16 21:00 08/15/16 04:50 08/15/16 07:00 Arterial Blood HCO3 29.9 H 30.4 H 30.0 H Arterial Blood Base Excess 2.1 3.0 3.3 H Arterial Blood Oxygen Saturation 94.2 L 97.1 96.0 [place] Test ACCEPTAB ACCEPTAB ACCEPTAB Arterial Blood Gas Puncture Site Right Radial Right Radial Right Radial Arterial Blood Carboxyhemoglobin 0.3 0.2 0.2 Arterial Blood Date Drawn 08/14/2016 2:30:09 PM 08/14/2016 9:00:04 PM 08/15/2016 8:15:21 AM Arterial Blood Methemoglobin 0.4 0.5 0.4 Arterial Blood pCO2 (Temp correct) 64.4 H 62.4 H 58.0 H Arterial Blood pH (Temp corrected) 7.284 *L 7.305 L 7.332 L Arterial Blood pO2 (Temp corrected) 75.0 L 100.6 H 82.8 Blood Gas A-a O2 Differential 99.7 H 112.8 H 63.0 H Blood Gas Critical Value Read Back Y SANTO RN Blood Gas Modality MASK - VENTI HFNC HFNC Blood Gas Notified Time 08/14/2016 2:39:49 PM 08/14/2016 9:12:04 PM 08/15/2016 8:41:18 AM Blood Gas Notified Whom DERRICK LUCERO RCP CW Blood Gas Specimen Source Blood arterial Blood arterial Blood arterial Blood Gas Temperature 37.0 37.0 37.0 FiO2 35.0 40.0 30.0 Oxyhemoglobin Percent 93.5 96.4 95.4 Total Hemoglobin 10.1 L 10.2 L 9.6 L Blood Gas Actual Respiration Rate 22 Anion Gap 11 Basophils # 0.0 Basophils % 0.2 Blood Urea Nitrogen 14 Calcium Level 7.7 L Carbon Dioxide Level 32 H Chloride Level 104 Creatinine 0.95 Eosinophils # 0.3 Eosinophils % 4.3 Glucose Level 78 Hematocrit 27.8 L Hemoglobin 8.6 L Lymphocytes # 1.5 Lymphocytes % 26.6 Magnesium Level 1.7 Mean Corpuscular Hemoglobin 30.7 Mean Corpuscular Hemoglobin Concent 30.9 L Mean Corpuscular Volume 99.3 Mean Platelet Volume 10.0 Monocytes # 0.5 Monocytes % 8.5 Neutrophils # 3.4 Neutrophils % 59.5 Nucleated Red Blood Cells # 0.0 Nucleated Red Blood Cells % 0.0 Phosphorus Level 2.7 Platelet Count 144 Potassium Level 3.2 L Red Blood Count 2.80 L Red Cell Distribution Width 17.7 H Sodium Level 144 White Blood Count 5.8 Medications Current Medications Aspirin (Halfprin) 81 mg DAILY PO Last administered on 08/15/16 09:20; Admin Dose 81 MG; Start 08/12/16 at 09:00 Clopidogrel Bisulfate (plaVIX) 75 mg DAILY PO Last administered on 08/15/16 09: 21; Admin Dose 75 MG; Start 08/12/16 at 09:00 Ferrous Sulfate (Ferrous Sulfate (Ec)) 325 mg BID PO Last administered on 09:21; Admin Dose 325 MG; Start 08/11/16 at 21:00 Finasteride (Proscar) 5 mg DAILY PO Last administered on 08/15/16 09:21; Admin Dose 5 MG; Start 08/12/16 at 09:00 Fluticasone Propionate (Flonase 0.05% Nasal) 1 spray BID NASAL Last administered on 08/15/16 09:24; Admin Dose 1 SPRAY; Start 08/11/16 at 21:00 Gabapentin (Neurontin) 300 mg TID PO Last administered on 08/15/16 09:21; Admin Dose 300 MG; Start 08/11/16 at 21:00 Guaifenesin/ Dextromethorphan (Robitussin Dm Liquid Cup) 10 ml Q4H PRN PO COUGH ; Start 08/11/16 at 17:00 Lactobacillus Acidoph/Bulgaricus (Floranex) 1 tab TID PO Last administered on 09:20; Admin Dose 1 TAB; Start 08/11/16 at 21:00 Montelukast Sodium (Singulair) 10 mg HS PO Last administered on 08/14/16 21:16 ; Admin Dose 10 MG; Start 08/11/16 at 21:00 Multivitamins Therapeutic (Theragran) 1 tab DAILY PO Last administered on 09:21; Admin Dose 1 TAB; Start 08/12/16 at 09:00 Oxycodone/ Acetaminophen (Endocet (10/ 325)) 1 tab Q6 PRN PO PAIN Last administered on 08/13/16 16:22; Admin Dose 1 TAB; Start 08/11/16 at 17:00 Pantoprazole (Protonix Tab) 40 mg DAILY PO Last administered on 08/15/16 09:21 ; Admin Dose 40 MG; Start 08/12/16 at 09:00 Salmeterol Xinafoate/ Fluticasone (Advair 500/50 Diskus) 1 inh BID INH Last administered on 08/15/16 09:25; Admin Dose 1 INH; Start 08/11/16 at 21:00 Tamsulosin HCl (Flomax) 0.4 mg HS PO Last administered on 08/14/16 21:14; Admin Dose 0.4 MG; Start 08/11/16 at 21:00 Tiotropium [place] (Spiriva) 1 inh DAILY INH Last administered on 08/15/16 09: 24; Admin Dose 1 INH; Start 08/12/16 at 09:00 Guaifenesin/ Dextromethorphan (Mucinex Dm) 1 tab BID PO Last administered on 09:23; Admin Dose 1 TAB; Start 08/12/16 at 09:00 Fish Oil (Fish Oil) 1,000 mg DAILY PO Last administered on 08/15/16 09:21; Admin Dose 1,000 MG; Start 08/12/16 at 09:00 Atorvastatin Calcium (Lipitor) 20 mg DAILY@21 PO Last administered on 08/14/16 21:16; Admin Dose 20 MG; Start 08/11/16 at 21:58 Ondansetron HCl (Zofran Inj) 4 mg Q6H PRN IV NAUSEA AND/OR VOMITING Last administered on 08/15/16 06:12; Admin Dose 4 MG; Start 08/11/16 at 17:00 Nitroglycerin (Nitroglycerin (Sl Tab) 0.4 Mg) 1 tab Q5M PRN SL CHEST PAIN; Start 08/11/16 at 17:00 Acetaminophen (Tylenol Tab) 650 mg Q6H PRN PO PAIN LEVEL 1-3 OR FEVER; Start at 17:00 Morphine Sulfate (morphine) 2 mg Q4H PRN IV PAIN LEVEL 7-10; Start 08/11/16 at 17:00 Magnesium Hydroxide (Milk Of Mag) 30 ml DAILY PRN PO CONSTIPATION; Start at 17:00 Bisacodyl 10 mg 10 mg DAILY PRN [place] CONSTIPATION; Start 08/11/16 at 17:00 Piperacillin Sod/ Tazobactam Sod 100 ml @ 200 mls/hr Q8 IVPB Last administered on 08/15/16 06:08; Admin Dose 200 MLS/HR; Start 08/11/16 at 22:00 Vancomycin HCl (Vancocin) 250 ml @ 125 mls/hr Q24H IVPB Last administered on 11:46; Admin Dose 125 MLS/HR; Start 08/12/16 at 11:00 IV Flush (NS 10 ml) 10 ml PRN PRN IV IV PROTOCOL; Start 08/12/16 at 18:30 Silver Sulfadiazine (Thermazene 1% 25 Gm) 1 applic DAILY TOP Last administered on 08/15/16 09:25; Admin Dose 1 APPLIC; Start 08/13/16 at 12:00 Amiodarone HCl (Cordarone) 400 mg BID PO Last administered on 08/15/16 09:21; Admin Dose 400 MG; Start 08/13/16 at 13:30 Mupirocin (Bactroban) 1 applic BID TOP Last administered on 08/15/16 09:25; Admin Dose 1 APPLIC; Start 08/13/16 at 21:00; Stop 08/27/16 at 20:59 Docusate Sodium (Colace) 100 mg Q12 PO Last administered on 08/15/16 11:07; Admin Dose 100 MG; Start 08/15/16 at 10:30 Assessment/Plan Additional Assessment/Plan IMP: 1. Acute on chronic hypoxemic/hypercapnic resp failure 2. Decompensated HF 3. Sepsis 4. Valvular disease RECS: 1. Continue diuresis 2. Keep strict I/O's 3. Mobilize OOB 4. Maintain SpO2 88-92% 5. De-escalate abx 35 min cc time NEAL BOONE MD Aug 15, 2016 12:53
[2016-08-15 16:27] LABS: POTASSIUM 3.6 mmol/L (3.5-5.1)
[2016-08-15 16:30] LABS: CALCIUM 7.8 mg/dl (8.4-10.2); CREATININE 0.91 mg/dl (0.61-1.24)
[2016-08-15] MEDS: OXYCODONE/ACETAMINOPHEN (10/325) TAB PO PRN (19:04)
[2016-08-15] MEDS: ATORVASTATIN 20 MG TAB PO SCH (20:45)
[2016-08-15] MEDS: MONTELUKAST 10 MG TAB PO SCH (20:45)
[2016-08-15] MEDS: TAMSULOSIN (SR) 0.4 MG CAP PO SCH (20:46)
[2016-08-15] MEDS: LEVALBUTEROL (NEB) 0.63 MG/3 ML AMP HHN PRN (21:53)
[2016-08-16] VITALS (24 sets, daily range): BP systolic 111–146; BP diastolic 48–110; PULSE 62–73; RESP 11–21
[2016-08-16] MEDS: LEVALBUTEROL (NEB) 0.63 MG/3 ML AMP HHN SCH ×4 (00:51→23:54)
[2016-08-16] MEDS: ACETAMINOPHEN 325 MG TAB PO PRN (03:23)
[2016-08-16 04:59] LABS: ADD SCAN DIFF NO
[2016-08-16 05:18] LABS: BASOPHILS % 0.2 % (0.0-2.0); EOSINOPHILS # 0.4 10^3/ul (0.0-0.5); HEMATOCRIT 27.7 % (42.0-52.0); HEMOGLOBIN 8.5 g/dl (14.0-18.0); LYMPHOCYTES # 1.4 10^3/ul (0.8-2.9); LYMPHOCYTES % 28.5 % (15.0-51.0); MEAN CORPUSCULAR HEMOGLOBIN 29.9 pg (29.0-33.0); MEAN CORPUSCULAR HGB CONC 30.7 g/dl (32.0-37.0); MEAN CORPUSCULAR VOLUME 97.5 fl (82.0-101.0); MEAN PLATELET VOLUME 10.4 fl (7.4-10.4); MONOCYTE # 0.5 10^3/ul (0.3-0.9); MONOCYTES % 9.2 % (0.0-11.0); NEUTROPHIL # 2.7 10^3/ul (1.6-7.5); NEUTROPHILS % 53.7 % (39.0-77.0); PLATELET COUNT 166 10^3/UL (140-415); RED BLOOD COUNT 2.84 10^6/ul (4.70-6.10); RED CELL DISTRIBUTION WIDTH 17.5 % (11.5-14.5)
[2016-08-16 05:30] LABS: POTASSIUM 3.6 mmol/L (3.5-5.1)
[2016-08-16 05:32] LABS: CREATININE 0.95 mg/dl (0.61-1.24)
[2016-08-16 05:45] LABS: TROPONIN-I 0.125 ng/ml (0.00-0.12)
[2016-08-16 06:04] LABS: CK-MB 1.37 ng/ml (0.0-2.4); CREATINE KINASE < 20 IU/L (23-200)
[2016-08-16] MEDS: FUROSEMIDE 40 MG INJ IV SCH ×2 (06:10→17:47)
[2016-08-16] MEDS: PIPER-TAZO 3.375 GM IV (PMX) 100 ML IVPB SCH ×3 (06:42→21:59)
[2016-08-16] MEDS: FERROUS SULFATE (EC) 325 MG TAB PO SCH ×2 (08:29→20:24)
[2016-08-16] MEDS: CLOPIDOGREL 75 MG TAB PO SCH (08:29)
[2016-08-16] MEDS: DOCUSATE SODIUM 100 MG CAP PO SCH ×2 (08:29→20:25)
[2016-08-16] MEDS: ASPIRIN (EC) 81 MG TAB PO SCH (08:29)
[2016-08-16] MEDS: MULTIVITAMINS THERAPEUTIC TAB PO SCH (08:29)
[2016-08-16] MEDS: LACTOBACILLUS CHEW TAB PO SCH ×3 (08:29→20:23)
[2016-08-16] MEDS: PANTOPRAZOLE (EC) 40 MG TAB PO SCH (08:29)
[2016-08-16] MEDS: FINASTERIDE 5 MG TAB PO SCH (08:29)
[2016-08-16] MEDS: FISH OIL 1,000 MG CAP PO SCH (08:29)
[2016-08-16] MEDS: FLUTICASONE 0.05% 16 GM NAS SPRAY NASAL SCH ×2 (08:30→20:25)
[2016-08-16] MEDS: SALMETEROL/FLUTICASONE 500/50 INHA INH SCH ×2 (08:30→20:25)
[2016-08-16] MEDS: SILVER SULFADIAZINE 1% 25 GM CR TOP SCH (08:31)
[2016-08-16] MEDS: MUPIROCIN 2% 22 GM OINT TOP SCH ×2 (08:31→20:25)
[2016-08-16] MEDS: GABAPENTIN 300 MG CAP PO SCH ×3 (08:41→20:24)
[2016-08-16] MEDS: AMIODARONE 200 MG TAB PO SCH ×2 (08:42→20:24)
[2016-08-16] MEDS: GUAIFENESIN/DM (SR) TAB PO SCH ×2 (09:00→21:00)
[2016-08-16] MEDS: TIOTROPIUM 18 MCG CAPSULE INHA DEV INH SCH (09:00)
--- NOTE | 2016-08-16 09:59 | RADRPT ---
PROCEDURE: XR Chest. CLINICAL INDICATION: Shortness of breath. TECHNIQUE: Single frontal view. COMPARISON: 08/14/2016. FINDINGS: There is interstitial pulmonary edema, slightly improved. There is mild atelectasis at the lung bas es. The lungs are otherwise clear. There is a biventricular pacemaker/internal cardiac defibrillat or. A right arm PICC line is in satisfactory position. The heart is enlarged. There is calcification in the aorta consistent with atherosclerosis. There is no pneumothorax. There are small bilateral pleural effusions. There are multilevel vertebroplasties. There are sev ere degenerative changes of the right glenohumeral joint. IMPRESSION: 1. Slightly improved pulmonary edema. 2. No other change from 08/14/2016. RPTAT: QQ .Oscar Jackson MD, Date Time Electronically viewed and signed by .Oscar Jackson MD, MD on 08/16/2016 09:59 .R/
[2016-08-16] MEDS: VANCOMYCIN 1 GM in NS 250 ML IVPB SCH (11:00)
[2016-08-16] MEDS ORDERED: POTASSIUM CHLORIDE (SR) 20 MEQ TAB PO STA (11:25)
[2016-08-16] MEDS ORDERED: MAGNESIUM SULFATE 2 GM/50 ML 50 ML IVPB ONE (11:30)
--- NOTE | 2016-08-16 11:59 | CONS ---
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 Chronic obstructive pulmonary disease on home oxygen. Acute blood loss anemia status post blood transfusion -Patient currently in sinus rhythm, would continue amiodarone and slowly decreased dose over the next 1-2 days. Would continue IV diuretics as blood pressure and renal function permits. Potassium supplementation has been ordered. Would maintain potassium above 4.0 and magnesium above 2.0. Continue dual antiplatelet therapy given recent cardiac stent as well as statin therapy. Consultation Date/Type/Reason Admit Date/Time Aug 11, 2016 at 16:21 Type of Consultation: cv 24 HR Interval Summary Free Text/Dictation Less shortness of breath, has a mild cough but nonproductive, denies chest pain , dizziness or palpitations Exam/Review of Systems Vital Signs Vitals Vital Signs Date Time Temp Pulse Resp B/P Pulse Ox O2 Delivery O2 Flow Rate FiO2 08/16/16 08:45 66 21 98 30 08/16/16 07:00 119/66 High Flow 08/16/16 04:00 98.2 08/14/16 16:00 9.0 Intake and Output 08/15/16 08/15/16 08/16/16 15:00 23:00 07:00 Intake Total 360 ml 640 ml 125 ml Output Total 1390 ml 785 ml 335 ml Balance -1030 ml -145 ml -210 ml Exam Mild dyspnea with extensively speaking Constitutional: alert, frail, oriented Head: normocephalic Neck: supple Respiratory: other (Coarse breath sounds bilaterally with scattered rhonchi, mild expiratory wheezing) Cardiovascular: other (S1-S2 heard), regular rate and rhythm, systolic murmur Gastrointestinal: bowel sounds, non-tender, other (No guarding), soft Extremities: edema, other (Areas of ecchymosis) Results Result Diagram: 08/16/16 0400 08/16/16 0400 Results 24 hrs Laboratory Tests Test 08/15/16 16:00 08/16/16 04:00 Anion Gap 10 12 Blood Urea Nitrogen 13 12 Calcium Level 7.8 L 8.0 L Carbon Dioxide Level 34 H 34 H Chloride Level 102 100 Creatinine 0.91 0.95 Glucose Level 126 # 108 Potassium Level 3.6 3.6 Sodium Level 142 142 Basophils # 0.0 Basophils % 0.2 Creatine Kinase < 20 L Creatine Kinase Index Creatinine Kinase MB (Mass) 1.37 Eosinophils # 0.4 Eosinophils % 7.0 Hematocrit 27.7 L Hemoglobin 8.5 L Lymphocytes # 1.4 Lymphocytes % 28.5 Magnesium Level 1.8 Mean Corpuscular Hemoglobin 29.9 Mean Corpuscular Hemoglobin Concent 30.7 L Mean Corpuscular Volume 97.5 Mean Platelet Volume 10.4 Monocytes # 0.5 Monocytes % 9.2 Neutrophils # 2.7 Neutrophils % 53.7 Nucleated Red Blood Cells # 0.0 Nucleated Red Blood Cells % 0.0 Phosphorus Level 2.2 L Platelet Count 166 Red Blood Count 2.84 L Red Cell Distribution Width 17.5 H Troponin I 0.125 *H White Blood Count 5.0 Medications Medications Current Medications Aspirin (Halfprin) 81 mg DAILY PO Last administered on 08/16/16 08:29; Admin Dose 81 MG; Start 08/12/16 at 09:00 Clopidogrel Bisulfate (plaVIX) 75 mg DAILY PO Last administered on 08/16/16 08: 29; Admin Dose 75 MG; Start 08/12/16 at 09:00 Ferrous Sulfate (Ferrous Sulfate (Ec)) 325 mg BID PO Last administered on 08:29; Admin Dose 325 MG; Start 08/11/16 at 21:00 Finasteride (Proscar) 5 mg DAILY PO Last administered on 08/16/16 08:29; Admin Dose 5 MG; Start 08/12/16 at 09:00 Fluticasone Propionate (Flonase 0.05% Nasal) 1 spray BID NASAL Last administered on 08/16/16 08:30; Admin Dose 1 SPRAY; Start 08/11/16 at 21:00 Gabapentin (Neurontin) 300 mg TID PO Last administered on 08/16/16 08:41; Admin Dose 300 MG; Start 08/11/16 at 21:00 Guaifenesin/ Dextromethorphan (Robitussin Dm Liquid Cup) 10 ml Q4H PRN PO COUGH ; Start 08/11/16 at 17:00 Lactobacillus Acidoph/Bulgaricus (Floranex) 1 tab TID PO Last administered on 08:29; Admin Dose 1 TAB; Start 08/11/16 at 21:00 Montelukast Sodium (Singulair) 10 mg HS PO Last administered on 08/15/16 20:45 ; Admin Dose 10 MG; Start 08/11/16 at 21:00 Multivitamins Therapeutic (Theragran) 1 tab DAILY PO Last administered on 08:29; Admin Dose 1 TAB; Start 08/12/16 at 09:00 Oxycodone/ Acetaminophen (Endocet (10/ 325)) 1 tab Q6 PRN PO PAIN Last administered on 08/15/16 19:04; Admin Dose 1 TAB; Start 08/11/16 at 17:00 Pantoprazole (Protonix Tab) 40 mg DAILY PO Last administered on 08/16/16 08:29 ; Admin Dose 40 MG; Start 08/12/16 at 09:00 Salmeterol Xinafoate/ Fluticasone (Advair 500/50 Diskus) 1 inh BID INH Last administered on 08/16/16 08:30; Admin Dose 1 INH; Start 08/11/16 at 21:00 Tamsulosin HCl (Flomax) 0.4 mg HS PO Last administered on 08/15/16 20:46; Admin Dose 0.4 MG; Start 08/11/16 at 21:00 Tiotropium [place] (Spiriva) 1 inh DAILY INH Last administered on 08/15/16 09: 24; Admin Dose 1 INH; Start 08/12/16 at 09:00 Guaifenesin/ Dextromethorphan (Mucinex Dm) 1 tab BID PO Last administered on 20:45; Admin Dose 1 TAB; Start 08/12/16 at 09:00 Fish Oil (Fish Oil) 1,000 mg DAILY PO Last administered on 08/16/16 08:29; Admin Dose 1,000 MG; Start 08/12/16 at 09:00 Atorvastatin Calcium (Lipitor) 20 mg DAILY@21 PO Last administered on 08/15/16 20:45; Admin Dose 20 MG; Start 08/11/16 at 21:58 Ondansetron HCl (Zofran Inj) 4 mg Q6H PRN IV NAUSEA AND/OR VOMITING Last administered on 08/15/16 06:12; Admin Dose 4 MG; Start 08/11/16 at 17:00 Nitroglycerin (Nitroglycerin (Sl Tab) 0.4 Mg) 1 tab Q5M PRN SL CHEST PAIN; Start 08/11/16 at 17:00 Acetaminophen (Tylenol Tab) 650 mg Q6H PRN PO PAIN LEVEL 1-3 OR FEVER Last administered on 08/16/16 03:23; Admin Dose 650 MG; Start 08/11/16 at 17:00 Morphine Sulfate (morphine) 2 mg Q4H PRN IV PAIN LEVEL 7-10; Start 08/11/16 at 17:00 Magnesium Hydroxide (Milk Of Mag) 30 ml DAILY PRN PO CONSTIPATION; Start at 17:00 Bisacodyl 10 mg [address] CONSTIPATION; Start 08/11/16 at 17:00 Piperacillin Sod/ Tazobactam Sod 100 ml @ 200 mls/hr Q8 IVPB Last administered on 08/16/16 06:42; Admin Dose 200 MLS/HR; Start 08/11/16 at 22:00 Vancomycin HCl (Vancocin) 250 ml @ 125 mls/hr Q24H IVPB Last administered on 11:46; Admin Dose 125 MLS/HR; Start 08/12/16 at 11:00 IV Flush (NS 10 ml) 10 ml PRN PRN IV IV PROTOCOL; Start 08/12/16 at 18:30 Silver Sulfadiazine (Thermazene 1% 25 Gm) 1 applic DAILY TOP Last administered on 08/16/16 08:31; Admin Dose 1 APPLIC; Start 08/13/16 at 12:00 Amiodarone HCl (Cordarone) 400 mg BID PO Last administered on 08/16/16 08:42; Admin Dose 400 MG; Start 08/13/16 at 13:30 Mupirocin (Bactroban) 1 applic BID TOP Last administered on 08/16/16 08:31; Admin Dose 1 APPLIC; Start 08/13/16 at 21:00; Stop 08/27/16 at 20:59 Docusate Sodium 100 mg 100 mg Q12 PO Last administered on 08/16/16 08:29; Admin Dose 100 MG; Start 08/15/16 at 10:30 Magnesium Sulfate (Magnesium Sulfate 2 Gm/50 ml) 50 ml @ 25 mls/hr ONCE ONCE IVPB ; Start 08/16/16 at 11:30; Stop 08/16/16 at 13:29 Calos Peralta DO Aug 16, 2016 11:58
--- NOTE | 2016-08-16 12:54 | CONS ---
Date/Time of Note Date/Time of Note DATE: 08/16/16 TIME: 12:47 Consult Date/Type/Reason Admit Date/Time Aug 11, 2016 at 16:21 Initial Consult Date 08/14/16 Type of Consultation: pulm Subjective No events. Decreased FiO2 requirements. Objective Vital Signs Date Time Temp Pulse Resp B/P Pulse Ox O2 Delivery O2 Flow Rate FiO2 08/16/16 08:45 66 21 98 30 08/16/16 07:00 119/66 High Flow 08/16/16 04:00 98.2 08/14/16 16:00 9.0 Intake and Output 08/15/16 08/15/16 08/16/16 15:00 23:00 07:00 Intake Total 360 ml 640 ml 125 ml Output Total 1390 ml 785 ml 335 ml Balance -1030 ml -145 ml -210 ml HEENT: Neck supple; no JVD; no LAD CVS: RRR, S1 and S2, 3/6 sys murmur CHEST: bilateral rales ABD: Soft, NT, + BS EXT: No c/c + edema Results/Medications Result Diagram: 08/16/16 0400 08/16/16 0400 Results 24 hrs Laboratory Tests Test 08/15/16 16:00 08/16/16 04:00 Anion Gap 10 12 Blood Urea Nitrogen 13 12 Calcium Level 7.8 L 8.0 L Carbon Dioxide Level 34 H 34 H Chloride Level 102 100 Creatinine 0.91 0.95 Glucose Level 126 # 108 Potassium Level 3.6 3.6 Sodium Level 142 142 Basophils # 0.0 Basophils % 0.2 Creatine Kinase < 20 L Creatine Kinase Index Creatinine Kinase MB (Mass) 1.37 Eosinophils # 0.4 Eosinophils % 7.0 Hematocrit 27.7 L Hemoglobin 8.5 L Lymphocytes # 1.4 Lymphocytes % 28.5 Magnesium Level 1.8 Mean Corpuscular Hemoglobin 29.9 Mean Corpuscular Hemoglobin Concent 30.7 L Mean Corpuscular Volume 97.5 Mean Platelet Volume 10.4 Monocytes # 0.5 Monocytes % 9.2 Neutrophils # 2.7 Neutrophils % 53.7 Nucleated Red Blood Cells # 0.0 Nucleated Red Blood Cells % 0.0 Phosphorus Level 2.2 L Platelet Count 166 Red Blood Count 2.84 L Red Cell Distribution Width 17.5 H Troponin I 0.125 *H White Blood Count 5.0 Medications Current Medications Aspirin (Halfprin) 81 mg DAILY PO Last administered on 08/16/16 08:29; Admin Dose 81 MG; Start 08/12/16 at 09:00 Clopidogrel Bisulfate (plaVIX) 75 mg DAILY PO Last administered on 08/16/16 08: 29; Admin Dose 75 MG; Start 08/12/16 at 09:00 Ferrous Sulfate (Ferrous Sulfate (Ec)) 325 mg BID PO Last administered on 08:29; Admin Dose 325 MG; Start 08/11/16 at 21:00 Finasteride (Proscar) 5 mg DAILY PO Last administered on 08/16/16 08:29; Admin Dose 5 MG; Start 08/12/16 at 09:00 Fluticasone Propionate (Flonase 0.05% Nasal) 1 spray BID NASAL Last administered on 08/16/16 08:30; Admin Dose 1 SPRAY; Start 08/11/16 at 21:00 Gabapentin (Neurontin) 300 mg TID PO Last administered on 08/16/16 08:41; Admin Dose 300 MG; Start 08/11/16 at 21:00 Guaifenesin/ Dextromethorphan (Robitussin Dm Liquid Cup) 10 ml Q4H PRN PO COUGH ; Start 08/11/16 at 17:00 Lactobacillus Acidoph/Bulgaricus (Floranex) 1 tab TID PO Last administered on 08:29; Admin Dose 1 TAB; Start 08/11/16 at 21:00 Montelukast Sodium (Singulair) 10 mg HS PO Last administered on 08/15/16 20:45 ; Admin Dose 10 MG; Start 08/11/16 at 21:00 Multivitamins Therapeutic (Theragran) 1 tab DAILY PO Last administered on 08:29; Admin Dose 1 TAB; Start 08/12/16 at 09:00 Oxycodone/ Acetaminophen (Endocet (10/ 325)) 1 tab Q6 PRN PO PAIN Last administered on 08/15/16 19:04; Admin Dose 1 TAB; Start 08/11/16 at 17:00 Pantoprazole (Protonix Tab) 40 mg DAILY PO Last administered on 08/16/16 08:29 ; Admin Dose 40 MG; Start 08/12/16 at 09:00 Salmeterol Xinafoate/ Fluticasone (Advair 500/50 Diskus) 1 inh BID INH Last administered on 08/16/16 08:30; Admin Dose 1 INH; Start 08/11/16 at 21:00 Tamsulosin HCl (Flomax) 0.4 mg HS PO Last administered on 08/15/16 20:46; Admin Dose 0.4 MG; Start 08/11/16 at 21:00 Tiotropium [place] (Spiriva) 1 inh DAILY INH Last administered on 08/15/16 09: 24; Admin Dose 1 INH; Start 08/12/16 at 09:00 Guaifenesin/ Dextromethorphan (Mucinex Dm) 1 tab BID PO Last administered on 20:45; Admin Dose 1 TAB; Start 08/12/16 at 09:00 Fish Oil (Fish Oil) 1,000 mg DAILY PO Last administered on 08/16/16 08:29; Admin Dose 1,000 MG; Start 08/12/16 at 09:00 Atorvastatin Calcium (Lipitor) 20 mg DAILY@21 PO Last administered on 08/15/16 20:45; Admin Dose 20 MG; Start 08/11/16 at 21:58 Ondansetron HCl (Zofran Inj) 4 mg Q6H PRN IV NAUSEA AND/OR VOMITING Last administered on 08/15/16 06:12; Admin Dose 4 MG; Start 08/11/16 at 17:00 Nitroglycerin (Nitroglycerin (Sl Tab) 0.4 Mg) 1 tab Q5M PRN SL CHEST PAIN; Start 08/11/16 at 17:00 Acetaminophen (Tylenol Tab) 650 mg Q6H PRN PO PAIN LEVEL 1-3 OR FEVER Last administered on 08/16/16 03:23; Admin Dose 650 MG; Start 08/11/16 at 17:00 Morphine Sulfate (morphine) 2 mg Q4H PRN IV PAIN LEVEL 7-10; Start 08/11/16 at 17:00 Magnesium Hydroxide (Milk Of Mag) 30 ml DAILY PRN PO CONSTIPATION; Start at 17:00 Bisacodyl 10 mg 10 mg DAILY PRN [place] CONSTIPATION; Start 08/11/16 at 17:00 Piperacillin Sod/ Tazobactam Sod 100 ml @ 200 mls/hr Q8 IVPB Last administered on 08/16/16 06:42; Admin Dose 200 MLS/HR; Start 08/11/16 at 22:00 Vancomycin HCl (Vancocin) 250 ml @ 125 mls/hr Q24H IVPB Last administered on 11:00; Admin Dose 125 MLS/HR; Start 08/12/16 at 11:00 IV Flush (NS 10 ml) 10 ml PRN PRN IV IV PROTOCOL; Start 08/12/16 at 18:30 Silver Sulfadiazine (Thermazene 1% 25 Gm) 1 applic DAILY TOP Last administered on 08/16/16 08:31; Admin Dose 1 APPLIC; Start 08/13/16 at 12:00 Amiodarone HCl (Cordarone) 400 mg BID PO Last administered on 08/16/16 08:42; Admin Dose 400 MG; Start 08/13/16 at 13:30 Mupirocin (Bactroban) 1 applic BID TOP Last administered on 08/16/16 08:31; Admin Dose 1 APPLIC; Start 08/13/16 at 21:00; Stop 08/27/16 at 20:59 Docusate Sodium 100 mg 100 mg Q12 PO Last administered on 08/16/16 08:29; Admin Dose 100 MG; Start 08/15/16 at 10:30 Magnesium Sulfate (Magnesium Sulfate 2 Gm/50 ml) 50 ml @ 25 mls/hr ONCE ONCE IVPB Last administered on 08/16/16 12:25; Admin Dose 25 MLS/HR; Start 08/16/16 at 11:30; Stop 08/16/16 at 13:29 Assessment/Plan Additional Assessment/Plan IMP: 1. Acute on chronic hypoxemic/hypercapnic resp failure--improving 2. Decompensated HF 3. Sepsis 4. Valvular disease RECS: 1. Continue diuresis 2. Keep strict I/O's 3. Mobilize OOB 4. Maintain SpO2 88-92% 5. De-escalate abx 7. Okay for tele from pulm perspective NEAL BOONE MD Aug 16, 2016 12:54
--- NOTE | 2016-08-16 13:34 | PN ---
Date/Time of Note Date/Time of Note DATE: 08/16/16 TIME: 13:31 Assessment/Plan VTE Prophylaxis VTE Prophylaxis Intervention: SCD's Lines/Catheters IV Catheter Type (from Nrs): PICC Line Central line still needed: Yes Urinary Cath still in place: Yes Reason Cath still needed: pres ulcer contaminated by urine Assessment/Plan Assessment/Plan 81-year-old male with: 1. Resolved Hypotension. Lower extremity erythema almost resolved, BP better In volume overload and lasix is being continued. On Amio for Afib/flutter. Still with rates between 80-120's Continue antibiotics with Zosyn and vancomycin. 2. Coronary artery disease with ischemic cardiomyopathy, status post transcatheter aortic valve replacement, status post biventricular pacer placement. Elevated troponins, trending down and Cardiology following, latest EF 45 to 50% Continue current cardiac medications including Aspirin and Plavix. On Amiodarone with atrial fibrillation/atrial flutter. Monitoring volume status closely, on diuresis. Will continue as he is improving clinically. 3. Acute con chronichypoxemic/hypercapnic respiratory failure/chronic obstructive pulmonary disease. Improving clinically. Continue Lasix for diuresis Continue nebulizer treatment, Advair and Spiriva at this time. CXR demonstrates improvement. 4. Bilateral lower extremity erythema concerning for cellulitis given his presentation. Improving Continue vancomycin and Zosyn. 5. Chronic kidney disease. Renal function stable. Replete K and Mag 6. 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 UA positive and Urine culture with Pseudomonas sensitive to Zosyn. Arteaga catheter changed on this admission. Continue current abx based on culture results 7. Acute on chronic Anemia of chronic disease: s/p 2 units pRBC. Monitor Hb 8. Hypertension. Currently normo to hypotensive, all BP medications held. BP stable on diuresis. 9. Hypothyroidism. Continue current meds. 10. Temporal arteritis, stable. Prophylaxis: SCDs for DVT prophylaxis and Protonix for GI prophylaxis. DISPOSITION: In ICU with respiratory distress, A flutter and multiple end organ dysfunctions. On amiodarone drip, IV antibiotics, diuresis. Cardiology and Pulmonary following. Appreciate input. Subjective 24 Hr Interval Summary Free Text/Dictation Resting comfortably. Breathing better. Exam/Review of Systems Vital Signs Vitals Vital Signs Date Time Temp Pulse Resp B/P Pulse Ox O2 Delivery O2 Flow Rate FiO2 08/16/16 12:00 97.8 66 12 134/53 97 High Flow 08/16/16 08:45 30 08/14/16 16:00 9.0 Intake and Output 08/15/16 08/15/16 08/16/16 15:00 23:00 07:00 Intake Total 360 ml 640 ml 125 ml Output Total 1390 ml 785 ml 435 ml Balance -1030 ml -145 ml -310 ml Exam Constitutional: alert, oriented Psych: no complaints Head: normocephalic Eyes: nl conjunctiva ENMT: nl external ears & nose Neck: supple Respiratory: crackles/rales Cardiovascular: regular rate and rhythm Gastrointestinal: soft Results Result Diagram: 08/16/16 0400 08/16/16 0400 Results 24 hrs Laboratory Tests Test 08/15/16 16:00 08/16/16 04:00 Anion Gap 10 12 Blood Urea Nitrogen 13 12 Calcium Level 7.8 L 8.0 L Carbon Dioxide Level 34 H 34 H Chloride Level 102 100 Creatinine 0.91 0.95 Glucose Level 126 # 108 Potassium Level 3.6 3.6 Sodium Level 142 142 Basophils # 0.0 Basophils % 0.2 Creatine Kinase < 20 L Creatine Kinase Index Creatinine Kinase MB (Mass) 1.37 Eosinophils # 0.4 Eosinophils % 7.0 Hematocrit 27.7 L Hemoglobin 8.5 L Lymphocytes # 1.4 Lymphocytes % 28.5 Magnesium Level 1.8 Mean Corpuscular Hemoglobin 29.9 Mean Corpuscular Hemoglobin Concent 30.7 L Mean Corpuscular Volume 97.5 Mean Platelet Volume 10.4 Monocytes # 0.5 Monocytes % 9.2 Neutrophils # 2.7 Neutrophils % 53.7 Nucleated Red Blood Cells # 0.0 Nucleated Red Blood Cells % 0.0 Phosphorus Level 2.2 L Platelet Count 166 Red Blood Count 2.84 L Red Cell Distribution Width 17.5 H Troponin I 0.125 *H White Blood Count 5.0 Medications Medications Current Medications Aspirin (Halfprin) 81 mg DAILY PO Last administered on 08/16/16 08:29; Admin Dose 81 MG; Start 08/12/16 at 09:00 Clopidogrel Bisulfate (plaVIX) 75 mg DAILY PO Last administered on 08/16/16 08: 29; Admin Dose 75 MG; Start 08/12/16 at 09:00 Ferrous Sulfate (Ferrous Sulfate (Ec)) 325 mg BID PO Last administered on 08:29; Admin Dose 325 MG; Start 08/11/16 at 21:00 Finasteride (Proscar) 5 mg DAILY PO Last administered on 08/16/16 08:29; Admin Dose 5 MG; Start 08/12/16 at 09:00 Fluticasone Propionate (Flonase 0.05% Nasal) 1 spray BID NASAL Last administered on 08/16/16 08:30; Admin Dose 1 SPRAY; Start 08/11/16 at 21:00 Gabapentin (Neurontin) 300 mg TID PO Last administered on 08/16/16 13:30; Admin Dose 300 MG; Start 08/11/16 at 21:00 Guaifenesin/ Dextromethorphan (Robitussin Dm Liquid Cup) 10 ml Q4H PRN PO COUGH ; Start 08/11/16 at 17:00 Lactobacillus Acidoph/Bulgaricus (Floranex) 1 tab TID PO Last administered on 13:30; Admin Dose 1 TAB; Start 08/11/16 at 21:00 Montelukast Sodium (Singulair) 10 mg HS PO Last administered on 08/15/16 20:45 ; Admin Dose 10 MG; Start 08/11/16 at 21:00 Multivitamins Therapeutic (Theragran) 1 tab DAILY PO Last administered on 08:29; Admin Dose 1 TAB; Start 08/12/16 at 09:00 Oxycodone/ Acetaminophen (Endocet (10/ 325)) 1 tab Q6 PRN PO PAIN Last administered on 08/15/16 19:04; Admin Dose 1 TAB; Start 08/11/16 at 17:00 Pantoprazole (Protonix Tab) 40 mg DAILY PO Last administered on 08/16/16 08:29 ; Admin Dose 40 MG; Start 08/12/16 at 09:00 Salmeterol Xinafoate/ Fluticasone (Advair 500/50 Diskus) 1 inh BID INH Last administered on 08/16/16 08:30; Admin Dose 1 INH; Start 08/11/16 at 21:00 Tamsulosin HCl (Flomax) 0.4 mg HS PO Last administered on 08/15/16 20:46; Admin Dose 0.4 MG; Start 08/11/16 at 21:00 Tiotropium [place] (Spiriva) 1 inh DAILY INH Last administered on 08/15/16 09: 24; Admin Dose 1 INH; Start 08/12/16 at 09:00 Guaifenesin/ Dextromethorphan (Mucinex Dm) 1 tab BID PO Last administered on 20:45; Admin Dose 1 TAB; Start 08/12/16 at 09:00 Fish Oil (Fish Oil) 1,000 mg DAILY PO Last administered on 08/16/16 08:29; Admin Dose 1,000 MG; Start 08/12/16 at 09:00 Atorvastatin Calcium (Lipitor) 20 mg DAILY@21 PO Last administered on 08/15/16 20:45; Admin Dose 20 MG; Start 08/11/16 at 21:58 Ondansetron HCl (Zofran Inj) 4 mg Q6H PRN IV NAUSEA AND/OR VOMITING Last administered on 08/15/16 06:12; Admin Dose 4 MG; Start 08/11/16 at 17:00 Nitroglycerin (Nitroglycerin (Sl Tab) 0.4 Mg) 1 tab Q5M PRN SL CHEST PAIN; Start 08/11/16 at 17:00 Acetaminophen (Tylenol Tab) 650 mg Q6H PRN PO PAIN LEVEL 1-3 OR FEVER Last administered on 08/16/16 03:23; Admin Dose 650 MG; Start 08/11/16 at 17:00 Morphine Sulfate (morphine) 2 mg Q4H PRN IV PAIN LEVEL 7-10; Start 08/11/16 at 17:00 Magnesium Hydroxide (Milk Of Mag) 30 ml DAILY PRN PO CONSTIPATION; Start at 17:00 Bisacodyl 10 mg 10 mg DAILY PRN [place] CONSTIPATION; Start 08/11/16 at 17:00 Piperacillin Sod/ Tazobactam Sod 100 ml @ 200 mls/hr Q8 IVPB Last administered on 08/16/16 13:29; Admin Dose 200 MLS/HR; Start 08/11/16 at 22:00 Vancomycin HCl (Vancocin) 250 ml @ 125 mls/hr Q24H IVPB Last administered on 11:00; Admin Dose 125 MLS/HR; Start 08/12/16 at 11:00 IV Flush (NS 10 ml) 10 ml PRN PRN IV IV PROTOCOL; Start 08/12/16 at 18:30 Silver Sulfadiazine (Thermazene 1% 25 Gm) 1 applic DAILY TOP Last administered on 08/16/16 08:31; Admin Dose 1 APPLIC; Start 08/13/16 at 12:00 Amiodarone HCl (Cordarone) 400 mg BID PO Last administered on 08/16/16 08:42; Admin Dose 400 MG; Start 08/13/16 at 13:30 Mupirocin (Bactroban) 1 applic BID TOP Last administered on 08/16/16 08:31; Admin Dose 1 APPLIC; Start 08/13/16 at 21:00; Stop 08/27/16 at 20:59 Docusate Sodium (Colace) 100 mg Q12 PO Last administered on 08/16/16 08:29; Admin Dose 100 MG; Start 08/15/16 at 10:30 HEATHER MORELAND MD Aug 16, 2016 13:34
[2016-08-16 17:44] LABS: AADO2 Arterial 80.5 mmHg (7.0-24.0); Allen Test ACCEPTAB; Arterial Base Excess 7.3 mmol/L (-3.0-3); Arterial COHb 0.2 % (0.0-3.0); Arterial Fraction of Oxyhgb 93.9 % (93.0-99.0); Arterial HCO3 32.9 mmol/L (22.0-26.0); Arterial MetHb 0.5 % (0.0-1.5); Arterial Total Hemglobin 9.8 g/dl (12.0-18.0); MODE HFNC
[2016-08-16] MEDS: MONTELUKAST 10 MG TAB PO SCH (20:24)
[2016-08-16] MEDS: ATORVASTATIN 20 MG TAB PO SCH (20:24)
[2016-08-16] MEDS: TAMSULOSIN (SR) 0.4 MG CAP PO SCH (20:25)
[2016-08-16] MEDS: LEVALBUTEROL (NEB) 0.63 MG/3 ML AMP HHN PRN (20:45)
[2016-08-17] VITALS (19 sets, daily range): BP systolic 110–147; BP diastolic 48–64; PULSE 63–72; RESP 16–22
[2016-08-17 04:54] LABS: ADD SCAN DIFF NO
[2016-08-17] MEDS: LEVALBUTEROL (NEB) 0.63 MG/3 ML AMP HHN PRN (04:57)
[2016-08-17 05:07] LABS: BASOPHILS % 0.2 % (0.0-2.0); EOSINOPHILS # 0.4 10^3/ul (0.0-0.5); EOSINOPHILS % 6.5 % (0.0-7.0); HEMATOCRIT 26.8 % (42.0-52.0); HEMOGLOBIN 8.4 g/dl (14.0-18.0); LYMPHOCYTES # 1.9 10^3/ul (0.8-2.9); LYMPHOCYTES % 35.4 % (15.0-51.0); MEAN CORPUSCULAR HEMOGLOBIN 30.4 pg (29.0-33.0); MEAN CORPUSCULAR HGB CONC 31.3 g/dl (32.0-37.0); MEAN CORPUSCULAR VOLUME 97.1 fl (82.0-101.0); MEAN PLATELET VOLUME 10.1 fl (7.4-10.4); MONOCYTE # 0.6 10^3/ul (0.3-0.9); MONOCYTES % 10.4 % (0.0-11.0); NEUTROPHIL # 2.5 10^3/ul (1.6-7.5); NEUTROPHILS % 46.4 % (39.0-77.0); PLATELET COUNT 185 10^3/UL (140-415); RED BLOOD COUNT 2.76 10^6/ul (4.70-6.10); RED CELL DISTRIBUTION WIDTH 17.8 % (11.5-14.5); WHITE BLOOD COUNT 5.4 10^3/ul (4.8-10.8)
[2016-08-17 05:22] LABS: POTASSIUM 3.5 mmol/L (3.5-5.1)
[2016-08-17 05:25] LABS: CREATININE 0.82 mg/dl (0.61-1.24)
[2016-08-17 05:26] LABS: CALCIUM 8.1 mg/dl (8.4-10.2)
[2016-08-17] MEDS: FUROSEMIDE 40 MG INJ IV SCH (06:01)
[2016-08-17] MEDS: PIPER-TAZO 3.375 GM IV (PMX) 100 ML IVPB SCH ×3 (06:01→22:11)
--- NOTE | 2016-08-17 07:49 | RADRPT ---
PROCEDURE: XR Chest. CLINICAL INDICATION: Pulmonary edema TECHNIQUE: Portable single view of the chest COMPARISON: 08/16 FINDINGS: Cardiomegaly, AICD, and right PICC line are again seen. Aortic calcification and ectasia. Pulmonar y vascular congestion and bibasilar atelectasis and small effusions. Interstitial edema is again se en. No significant interval change. IMPRESSION: No significant interval change. RPTAT: HLBE Mini Hart Physician Date Time Electronically viewed and signed by Mini Hart Physician on 08/17/2016 07:49 LE/
[2016-08-17 08:05] LABS: AADO2 Arterial 54.3 mmHg (7.0-24.0); Allen Test ACCEPTAB; Arterial COHb 0.6 % (0.0-3.0); Arterial Fraction of Oxyhgb 93.3 % (93.0-99.0); Arterial HCO3 37.8 mmol/L (22.0-26.0); Arterial MetHb 0.6 % (0.0-1.5); Arterial Total Hemglobin 9.1 g/dl (12.0-18.0); MODE NASAL CANNULA
[2016-08-17] MEDS: FISH OIL 1,000 MG CAP PO SCH (08:08)
[2016-08-17] MEDS: PANTOPRAZOLE (EC) 40 MG TAB PO SCH (08:08)
[2016-08-17] MEDS: AMIODARONE 200 MG TAB PO SCH ×2 (08:08→22:31)
[2016-08-17] MEDS: FINASTERIDE 5 MG TAB PO SCH (08:08)
[2016-08-17] MEDS: LACTOBACILLUS CHEW TAB PO SCH ×3 (08:08→22:29)
[2016-08-17] MEDS: ASPIRIN (EC) 81 MG TAB PO SCH (08:09)
[2016-08-17] MEDS: DOCUSATE SODIUM 100 MG CAP PO SCH ×2 (08:09→22:29)
[2016-08-17] MEDS: TIOTROPIUM 18 MCG CAPSULE INHA DEV INH SCH (08:09)
[2016-08-17] MEDS: CLOPIDOGREL 75 MG TAB PO SCH (08:09)
[2016-08-17] MEDS: GABAPENTIN 300 MG CAP PO SCH ×3 (08:09→22:32)
[2016-08-17] MEDS: FERROUS SULFATE (EC) 325 MG TAB PO SCH ×2 (08:09→22:29)
[2016-08-17] MEDS: MULTIVITAMINS THERAPEUTIC TAB PO SCH (08:09)
[2016-08-17] MEDS: SILVER SULFADIAZINE 1% 25 GM CR TOP SCH (08:10)
[2016-08-17] MEDS: FLUTICASONE 0.05% 16 GM NAS SPRAY NASAL SCH ×2 (08:10→22:27)
[2016-08-17] MEDS: MUPIROCIN 2% 22 GM OINT TOP SCH ×2 (08:10→22:27)
[2016-08-17] MEDS: SALMETEROL/FLUTICASONE 500/50 INHA INH SCH ×2 (08:10→22:27)
--- NOTE | 2016-08-17 08:29 | CONS ---
Date/Time of Note Date/Time of Note DATE: 08/17/16 TIME: 08:27 Assessment/Plan Assessment/Plan Additional Assessment/Plan Chest x-ray was reviewed from today which is showing interstitial lung disease. There is a pacemaker in the left chest wall. Assessment recommendations; next 1. Patient admitted with anemia and received blood transfusions and developed shortness of breath likely from pulmonary edema. 2. Possibly superimposed pneumonia. Patient currently on Zosyn and vancomycin. 3. Compensated CHF. 4. History of BPH. 5. History of cardiac arrhythmia. 6. History of severe COPD with type II respiratory failure with marked clinical improvement. 7. History of neuropathy. Continue current treatment. Consider stopping antibiotics in 24 hours. Patient also can be transferred out of ICU to the medical floor. Consultation Date/Type/Reason Admit Date/Time Aug 11, 2016 at 16:21 Initial Consult Date 08/14/16 Type of Consultation: pulm 24 HR Interval Summary Free Text/Dictation Patient's condition is markedly improved. Patient is completely awake alert and denies any shortness of breath, chest pain, cough, wheezing. General examination; elderly male, currently in no distress, awake and alert. Exam/Review of Systems Vital Signs Vitals Vital Signs Date Time Temp Pulse Resp B/P Pulse Ox O2 Delivery O2 Flow Rate FiO2 08/17/16 07:30 Nasal Cannula 2.0 08/17/16 06:00 72 18 147/61 95 08/17/16 05:19 28 08/17/16 04:00 98.1 Intake and Output 08/16/16 08/16/16 08/17/16 15:00 23:00 07:00 Intake Total 840 ml 590 ml 300 ml Output Total 1070 ml 1345 ml 1050 ml Balance -230 ml -755 ml -750 ml Exam HEENT examination; supple neck, no JVD. No lymphadenopathy. Midline trachea. Patient wears dentures. Has bilateral intraocular lens implants. No neck masses, no thyromegaly. Chest examination; scattered crackles bilaterally. S1-S2 audible, no murmurs. Regular rhythm. There is a pacemaker in the left chest wall. Abdomen examination; soft, nontender. No organomegaly. Bowel sounds audible. Extremity examination; no peripheral edema. Pulses 1+ bilaterally. There is no clubbing. AUDIO VISUAL COLLECTIONS COORDINATOR examination; no focal deficit. Results Result Diagram: 08/17/16 0400 08/17/16 0400 Results 24 hrs Laboratory Tests Test 08/16/16 16:33 08/17/16 04:00 08/17/16 05:00 Arterial Blood HCO3 32.9 H 37.8 H Arterial Blood Base Excess 7.3 H 12.0 H Arterial Blood Oxygen Saturation 94.6 L 94.4 L [place]onte Test ACCEPTAB ACCEPTAB Arterial Blood Gas Puncture Site Right Radial Left Radial Arterial Blood Carboxyhemoglobin 0.2 0.6 Arterial Blood Date Drawn 08/16/2016 5:05:09 PM 08/17/2016 7:29:26 AM Arterial Blood Methemoglobin 0.5 0.6 Arterial Blood pCO2 (Temp correct) 52.3 H 57.9 H Arterial Blood pH (Temp corrected) 7.416 7.433 Arterial Blood pO2 (Temp corrected) 72.0 L 69.7 L Blood Gas A-a O2 Differential 80.5 H 54.3 H Blood Gas Actual Respiration Rate 20 Blood Gas Modality HFNC NASAL CANNULA Blood Gas Notified Time 08/16/2016 5:44:01 PM 08/17/2016 8:05:02 AM Blood Gas Notified Whom CANDICE Blood Gas Specimen Source Blood arterial Blood arterial Blood Gas Temperature 37.0 37.0 FiO2 30.0 27.0 Oxyhemoglobin Percent 93.9 93.3 Total Hemoglobin 9.8 L 9.1 L Anion Gap 10 Basophils # 0.0 Basophils % 0.2 Blood Urea Nitrogen 11 Calcium Level 8.1 L Carbon Dioxide Level 39 H Chloride Level 98 Creatinine 0.82 Eosinophils # 0.4 Eosinophils % 6.5 Glucose Level 125 Hematocrit 26.8 L Hemoglobin 8.4 L Lymphocytes # 1.9 Lymphocytes % 35.4 Mean Corpuscular Hemoglobin 30.4 Mean Corpuscular Hemoglobin Concent 31.3 L Mean Corpuscular Volume 97.1 Mean Platelet Volume 10.1 Monocytes # 0.6 Monocytes % 10.4 Neutrophils # 2.5 Neutrophils % 46.4 Nucleated Red Blood Cells # 0.0 Nucleated Red Blood Cells % 0.0 Platelet Count 185 Potassium Level 3.5 Red Blood Count 2.76 L Red Cell Distribution Width 17.8 H Sodium Level 143 White Blood Count 5.4 Medications Medications Current Medications Aspirin (Halfprin) 81 mg DAILY PO Last administered on 08/17/16t 08:09; Admin Dose 81 MG; Start 08/12/16 at 09:00 Clopidogrel Bisulfate (plaVIX) 75 mg DAILY PO Last administered on 08/17/16 08: 09; Admin Dose 75 MG; Start 08/12/16 at 09:00 Ferrous Sulfate (Ferrous Sulfate (Ec)) 325 mg BID PO Last administered on 08:09; Admin Dose 325 MG; Start 08/11/16 at 21:00 Finasteride (Proscar) 5 mg DAILY PO Last administered on 08/17/16 08:08; Admin Dose 5 MG; Start 08/12/16 at 09:00 Fluticasone Propionate (Flonase 0.05% Nasal) 1 spray BID NASAL Last administered on 08/17/16 08:10; Admin Dose 1 SPRAY; Start 08/11/16 at 21:00 Gabapentin (Neurontin) 300 mg TID PO Last administered on 08/17/16 08:09; Admin Dose 300 MG; Start 08/11/16 at 21:00 Guaifenesin/ Dextromethorphan (Robitussin Dm Liquid Cup) 10 ml Q4H PRN PO COUGH Last administered on 08/16/16 16:30; Admin Dose 10 ML; Start 08/11/16 at 17:00 Lactobacillus Acidoph/Bulgaricus (Floranex) 1 tab TID PO Last administered on 08:08; Admin Dose 1 TAB; Start 08/11/16 at 21:00 Montelukast Sodium (Singulair) 10 mg HS PO Last administered on 08/16/16 20:24 ; Admin Dose 10 MG; Start 08/11/16 at 21:00 Multivitamins Therapeutic (Theragran) 1 tab DAILY PO Last administered on 08:09; Admin Dose 1 TAB; Start 08/12/16 at 09:00 Oxycodone/ Acetaminophen (Endocet (10/ 325)) 1 tab Q6 PRN PO PAIN Last administered on 08/15/16 19:04; Admin Dose 1 TAB; Start 08/11/16 at 17:00 Pantoprazole (Protonix Tab) 40 mg DAILY PO Last administered on 08/17/16 08:08 ; Admin Dose 40 MG; Start 08/12/16 at 09:00 Salmeterol Xinafoate/ Fluticasone (Advair 500/50 Diskus) 1 inh BID INH Last administered on 08/17/16 08:10; Admin Dose 1 INH; Start 08/11/16 at 21:00 Tamsulosin HCl (Flomax) 0.4 mg HS PO Last administered on 08/16/16 20:25; Admin Dose 0.4 MG; Start 08/11/16 at 21:00 Tiotropium [place] (Spiriva) 1 inh DAILY INH Last administered on 08/17/16 08: 09; Admin Dose 1 INH; Start 08/12/16 at 09:00 Guaifenesin/ Dextromethorphan (Mucinex Dm) 1 tab BID PO Last administered on 20:45; Admin Dose 1 TAB; Start 08/12/16 at 09:00 Fish Oil (Fish Oil) 1,000 mg DAILY PO Last administered on 08/17/16 08:08; Admin Dose 1,000 MG; Start 08/12/16 at 09:00 Atorvastatin Calcium (Lipitor) 20 mg DAILY@21 PO Last administered on 08/16/16 20:24; Admin Dose 20 MG; Start 08/11/16 at 21:58 Ondansetron HCl (Zofran Inj) 4 mg Q6H PRN IV NAUSEA AND/OR VOMITING Last administered on 08/15/16 06:12; Admin Dose 4 MG; Start 08/11/16 at 17:00 Nitroglycerin (Nitroglycerin (Sl Tab) 0.4 Mg) 1 tab Q5M PRN SL CHEST PAIN; Start 08/11/16 at 17:00 Acetaminophen (Tylenol Tab) 650 mg Q6H PRN PO PAIN LEVEL 1-3 OR FEVER Last administered on 08/16/16 03:23; Admin Dose 650 MG; Start 08/11/16 at 17:00 Morphine Sulfate (morphine) 2 mg Q4H PRN IV PAIN LEVEL 7-10; Start 08/11/16 at 17:00 Magnesium Hydroxide (Milk Of Mag) 30 ml DAILY PRN PO CONSTIPATION; Start at 17:00 Bisacodyl 10 mg 10 mg DAILY PRN [place] CONSTIPATION; Start 08/11/16 at 17:00 Piperacillin Sod/ Tazobactam Sod 100 ml @ 200 mls/hr Q8 IVPB Last administered on 08/17/16 06:01; Admin Dose 200 MLS/HR; Start 08/11/16 at 22:00 Vancomycin HCl (Vancocin) 250 ml @ 125 mls/hr Q24H IVPB Last administered on 11:00; Admin Dose 125 MLS/HR; Start 08/12/16 at 11:00 IV Flush (NS 10 ml) 10 ml PRN PRN IV IV PROTOCOL; Start 08/12/16 at 18:30 Silver Sulfadiazine (Thermazene 1% 25 Gm) 1 applic DAILY TOP Last administered on 08/17/16 08:10; Admin Dose 1 APPLIC; Start 08/13/16 at 12:00 Amiodarone HCl (Cordarone) 400 mg BID PO Last administered on 08/17/16 08:08; Admin Dose 400 MG; Start 08/13/16 at 13:30 Mupirocin (Bactroban) 1 applic BID TOP Last administered on 08/17/16 08:10; Admin Dose 1 APPLIC; Start 08/13/16 at 21:00; Stop 08/27/16 at 20:59 Docusate Sodium (Colace) 100 mg Q12 PO Last administered on 08/17/16 08:09; Admin Dose 100 MG; Start 08/15/16 at 10:30 ERIN HERNANDEZ Aug 17, 2016 08:29
[2016-08-17] MEDS: LEVALBUTEROL (NEB) 0.63 MG/3 ML AMP HHN SCH ×4 (08:51→20:50)
[2016-08-17] MEDS: GUAIFENESIN/DM (SR) TAB PO SCH ×2 (09:00→22:29)
--- NOTE | 2016-08-17 10:04 | PN ---
Date/Time of Note Date/Time of Note DATE: 08/17/16 TIME: 09:41 Assessment/Plan VTE Prophylaxis VTE Prophylaxis Intervention: SCD's Lines/Catheters IV Catheter Type (from Nrs): PICC Line Central line still needed: Yes (for IV access ) Urinary Cath still in place: Yes Reason Cath still needed: urinary retention (chronic linton ), other (indicate) Assessment/Plan Assessment/Plan 81-year-old male with: 1. CHF exacerbation and volume overload, resolving, on Lasix with excellent diuresis On Amio for Afib/flutter. Still with rates between 80-120's. 2. Coronary artery disease with ischemic cardiomyopathy, status post transcatheter aortic valve replacement, status post biventricular pacer placement. Elevated troponin, trending down and Cardiology following, latest EF 45 to 50% Continue current cardiac medications including Aspirin and Plavix. On Amiodarone with atrial fibrillation/atrial flutter. Monitoring volume status closely, on diuresis. 3. Acute respiratory failure with known chronic hypoxemia, chronic obstructive pulmonary disease. Back on 2L NC which is his outpatient chronic O2 requirement Continue Lasix for diuresis Continue nebulizer treatment, Advair and Spiriva at this time. CXR prn in AM 4. Bilateral lower extremity erythema concerning for cellulitis given his presentation. Keeps improving Continue vancomycin and Zosyn. 5. Chronic kidney disease. Renal function stable. Replete K and Mag 6. 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 UA positive and Urine culture with Pseudomonas sensitive to Zosyn. Linton catheter changed on this admission. Continue current abx based on culture results 7. Acute on chronic Anemia of chronic disease: s/p 2 units pRBC. Monitor Hb slowly trending down with no signs of acute bleeding. 8. Hypertension. Currently normotensive, all BP medications held. BP stable on diuresis. 9. Hypothyroidism. Continue current meds. 10. Temporal arteritis, stable. Prophylaxis: SCDs for DVT prophylaxis and Protonix for GI prophylaxis. DISPOSITION: Transfer to Telemetry today, A flutter controlled and volume status much improved, back on 2L NC. On amiodarone, IV antibiotics, diuresis. Cardiology and Pulmonary following. Subjective 24 Hr Interval Summary Free Text/Dictation Patient now on 2L NC and stable, paced, on diuretics Chronic Linton Transfer to Telemetry today Exam/Review of Systems Vital Signs Vitals Vital Signs Date Time Temp Pulse Resp B/P Pulse Ox O2 Delivery O2 Flow Rate FiO2 08/17/16 09:00 98.0 69 18 126/51 96 Nasal Cannula 2.0 08/17/16 08:53 28 Intake and Output 08/16/16 08/16/16 08/17/16 15:00 23:00 07:00 Intake Total 840 ml 590 ml 300 ml Output Total 1070 ml 1345 ml 1050 ml Balance -230 ml -755 ml -750 ml Exam Constitutional: alert, frail, oriented Respiratory: diminished breath sounds (bases bilaerally primarly ), normal air movement Cardiovascular: irregular rhythm (a flutter underlying rhythm, paced ) Gastrointestinal: non-tender, soft Extremities: normal pulses, other (less LE erythema and much improved edema ) 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: SENIOR CLINICAL DATA ANALYST II-XII intact, nl mental status, nl speech, other ( generalised weakness ) Results Result Diagram: 08/17/16 0400 08/17/16 0400 Results 24 hrs Laboratory Tests Test 08/16/16 16:33 08/17/16 04:00 08/17/16 05:00 Arterial Blood HCO3 32.9 H 37.8 H Arterial Blood Base Excess 7.3 H 12.0 H Arterial Blood Oxygen Saturation 94.6 L 94.4 L [place] Test ACCEPTAB ACCEPTAB Arterial Blood Gas Puncture Site Right Radial Left Radial Arterial Blood Carboxyhemoglobin 0.2 0.6 Arterial Blood Date Drawn 08/16/2016 5:05:09 PM 08/17/2016 7:29:26 AM Arterial Blood Methemoglobin 0.5 0.6 Arterial Blood pCO2 (Temp correct) 52.3 H 57.9 H Arterial Blood pH (Temp corrected) 7.416 7.433 Arterial Blood pO2 (Temp corrected) 72.0 L 69.7 L Blood Gas A-a O2 Differential 80.5 H 54.3 H Blood Gas Actual Respiration Rate 20 Blood Gas Modality HFNC NASAL CANNULA Blood Gas Notified Time 08/16/2016 5:44:01 PM 08/17/2016 8:05:02 AM Blood Gas Notified Whom ELAINA HARVEY Blood Gas Specimen Source Blood arterial Blood arterial Blood Gas Temperature 37.0 37.0 FiO2 30.0 27.0 Oxyhemoglobin Percent 93.9 93.3 Total Hemoglobin 9.8 L 9.1 L Anion Gap 10 Basophils # 0.0 Basophils % 0.2 Blood Urea Nitrogen 11 Calcium Level 8.1 L Carbon Dioxide Level 39 H Chloride Level 98 Creatinine 0.82 Eosinophils # 0.4 Eosinophils % 6.5 Glucose Level 125 Hematocrit 26.8 L Hemoglobin 8.4 L Lymphocytes # 1.9 Lymphocytes % 35.4 Mean Corpuscular Hemoglobin 30.4 Mean Corpuscular Hemoglobin Concent 31.3 L Mean Corpuscular Volume 97.1 Mean Platelet Volume 10.1 Monocytes # 0.6 Monocytes % 10.4 Neutrophils # 2.5 Neutrophils % 46.4 Nucleated Red Blood Cells # 0.0 Nucleated Red Blood Cells % 0.0 Platelet Count 185 Potassium Level 3.5 Red Blood Count 2.76 L Red Cell Distribution Width 17.8 H Sodium Level 143 White Blood Count 5.4 Medications Medications Current Medications Aspirin (Halfprin) 81 mg DAILY PO Last administered on 08/17/16 08:09; Admin Dose 81 MG; Start 08/12/16 at 09:00 Clopidogrel Bisulfate (plaVIX) 75 mg DAILY PO Last administered on 08/17/16 08: 09; Admin Dose 75 MG; Start 08/12/16 at 09:00 Ferrous Sulfate (Ferrous Sulfate (Ec)) 325 mg BID PO Last administered on 08:09; Admin Dose 325 MG; Start 08/11/16 at 21:00 Finasteride (Proscar) 5 mg DAILY PO Last administered on 08/17/16 08:08; Admin Dose 5 MG; Start 08/12/16 at 09:00 Fluticasone Propionate (Flonase 0.05% Nasal) 1 spray BID NASAL Last administered on 08/17/16 08:10; Admin Dose 1 SPRAY; Start 08/11/16 at 21:00 Gabapentin (Neurontin) 300 mg TID PO Last administered on 08/17/16 08:09; Admin Dose 300 MG; Start 08/11/16 at 21:00 Guaifenesin/ Dextromethorphan (Robitussin Dm Liquid Cup) 10 ml Q4H PRN PO COUGH Last administered on 08/16/16 16:30; Admin Dose 10 ML; Start 08/11/16 at 17:00 Lactobacillus Acidoph/Bulgaricus (Floranex) 1 tab TID PO Last administered on 08:08; Admin Dose 1 TAB; Start 08/11/16 at 21:00 Montelukast Sodium (Singulair) 10 mg HS PO Last administered on 08/16/16 20:24 ; Admin Dose 10 MG; Start 08/11/16 at 21:00 Multivitamins Therapeutic (Theragran) 1 tab DAILY PO Last administered on 08:09; Admin Dose 1 TAB; Start 08/12/16 at 09:00 Oxycodone/ Acetaminophen (Endocet (10/ 325)) 1 tab Q6 PRN PO PAIN Last administered on 08/15/16 19:04; Admin Dose 1 TAB; Start 08/11/16 at 17:00 Pantoprazole (Protonix Tab) 40 mg DAILY PO Last administered on 08/17/16 08:08 ; Admin Dose 40 MG; Start 08/12/16 at 09:00 Salmeterol Xinafoate/ Fluticasone (Advair 500/50 Diskus) 1 inh BID INH Last administered on 08/17/16 08:10; Admin Dose 1 INH; Start 08/11/16 at 21:00 Tamsulosin HCl (Flomax) 0.4 mg HS PO Last administered on 08/16/16 20:25; Admin Dose 0.4 MG; Start 08/11/16 at 21:00 Tiotropium [place] (Spiriva) 1 inh DAILY INH Last administered on 08/17/16 08: 09; Admin Dose 1 INH; Start 08/12/16 at 09:00 Guaifenesin/ Dextromethorphan (Mucinex Dm) 1 tab BID PO Last administered on 20:45; Admin Dose 1 TAB; Start 08/12/16 at 09:00 Fish Oil (Fish Oil) 1,000 mg DAILY PO Last administered on 08/17/16 08:08; Admin Dose 1,000 MG; Start 08/12/16 at 09:00 Atorvastatin Calcium (Lipitor) 20 mg DAILY@21 PO Last administered on 08/16/16 20:24; Admin Dose 20 MG; Start 08/11/16 at 21:58 Ondansetron HCl (Zofran Inj) 4 mg Q6H PRN IV NAUSEA AND/OR VOMITING Last administered on 08/15/16 06:12; Admin Dose 4 MG; Start 08/11/16 at 17:00 Nitroglycerin (Nitroglycerin (Sl Tab) 0.4 Mg) 1 tab Q5M PRN SL CHEST PAIN; Start 08/11/16 at 17:00 Acetaminophen (Tylenol Tab) 650 mg Q6H PRN PO PAIN LEVEL 1-3 OR FEVER Last administered on 08/16/16 03:23; Admin Dose 650 MG; Start 08/11/16 at 17:00 Morphine Sulfate (morphine) 2 mg Q4H PRN IV PAIN LEVEL 7-10; Start 08/11/16 at 17:00 Magnesium Hydroxide (Milk Of Mag) 30 ml DAILY PRN PO CONSTIPATION; Start at 17:00 Bisacodyl 10 mg 10 mg DAILY PRN [place] CONSTIPATION; Start 08/11/16 at 17:00 Piperacillin Sod/ Tazobactam Sod 100 ml @ 200 mls/hr Q8 IVPB Last administered on 08/17/16 06:01; Admin Dose 200 MLS/HR; Start 08/11/16 at 22:00 Vancomycin HCl (Vancocin) 250 ml @ 125 mls/hr Q24H IVPB Last administered on 11:00; Admin Dose 125 MLS/HR; Start 08/12/16 at 11:00 IV Flush (NS 10 ml) 10 ml PRN PRN IV IV PROTOCOL; Start 08/12/16 at 18:30 Silver Sulfadiazine (Thermazene 1% 25 Gm) 1 applic DAILY TOP Last administered on 08/17/16 08:10; Admin Dose 1 APPLIC; Start 08/13/16 at 12:00 Amiodarone HCl (Cordarone) 400 mg BID PO Last administered on 08/17/16 08:08; Admin Dose 400 MG; Start 08/13/16 at 13:30 Mupirocin (Bactroban) 1 applic BID TOP Last administered on 08/17/16 08:10; Admin Dose 1 APPLIC; Start 08/13/16 at 21:00; Stop 08/27/16 at 20:59 Docusate Sodium (Colace) 100 mg Q12 PO Last administered on 08/17/16 08:09; Admin Dose 100 MG; Start 08/15/16 at 10:30 Procedures Procedures PROCEDURE: XR Chest. CLINICAL INDICATION: Pulmonary edema TECHNIQUE: Portable single view of the chest COMPARISON: 08/16 FINDINGS: Cardiomegaly, AICD, and right PICC line are again seen. Aortic calcification and ectasia. Pulmonary vascular congestion and bibasilar atelectasis and small effusions. Interstitial edema is again seen. No significant interval change. IMPRESSION: No significant interval change. RPTAT: HLBE RICHIE SWEET Aug 17, 2016 09:51
[2016-08-17] MEDS: VANCOMYCIN 1 GM in NS 250 ML IVPB SCH (10:55)
[2016-08-17] MEDS ORDERED: POTASSIUM CHLORIDE (SR) 20 MEQ TAB PO STA (18:37)
--- NOTE | 2016-08-17 18:40 | CONS ---
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 Chronic obstructive pulmonary disease on home oxygen. Acute blood loss anemia status post blood transfusion -Increase diuretic regimen, supplement potassium to maintain above 4.0, continue dual antiplatelet therapy. Consultation Date/Type/Reason Admit Date/Time Aug 11, 2016 at 16:21 Type of Consultation: cv 24 HR Interval Summary Free Text/Dictation Shortness of breath continues to improve, denies chest pain, palpitations or dizziness Exam/Review of Systems Vital Signs Vitals Vital Signs Date Time Temp Pulse Resp B/P Pulse Ox O2 Delivery O2 Flow Rate FiO2 08/17/16 17:09 68 18 98 Nasal Cannula 2.0 08/17/16 16:35 97.5 116/54 08/17/16 08:53 28 Intake and Output 08/16/16 08/16/16 08/17/16 15:00 23:00 07:00 Intake Total 840 ml 590 ml 300 ml Output Total 1070 ml 1345 ml 1050 ml Balance -230 ml -755 ml -750 ml Exam No apparent distress Constitutional: alert, frail, oriented Head: normocephalic Neck: supple Respiratory: congested cough, crackles/rales, wheezing Cardiovascular: other (S1-S2 heard), regular rate and rhythm, systolic murmur Gastrointestinal: bowel sounds, non-tender, other (No guarding), soft Extremities: edema Skin: ecchymosis, other (Erythema lower extremity) Results Result Diagram: 08/17/16 0400 08/17/16 0400 Results 24 hrs Laboratory Tests Test 08/17/16 04:00 08/17/16 05:00 Anion Gap 10 Basophils # 0.0 Basophils % 0.2 Blood Urea Nitrogen 11 Calcium Level 8.1 L Carbon Dioxide Level 39 H Chloride Level 98 Creatinine 0.82 Eosinophils # 0.4 Eosinophils % 6.5 Glucose Level 125 Hematocrit 26.8 L Hemoglobin 8.4 L Lymphocytes # 1.9 Lymphocytes % 35.4 Mean Corpuscular Hemoglobin 30.4 Mean Corpuscular Hemoglobin Concent 31.3 L Mean Corpuscular Volume 97.1 Mean Platelet Volume 10.1 Monocytes # 0.6 Monocytes % 10.4 Neutrophils # 2.5 Neutrophils % 46.4 Nucleated Red Blood Cells # 0.0 Nucleated Red Blood Cells % 0.0 Platelet Count 185 Potassium Level 3.5 Red Blood Count 2.76 L Red Cell Distribution Width 17.8 H Sodium Level 143 White Blood Count 5.4 Arterial Blood HCO3 37.8 H Arterial Blood Base Excess 12.0 H Arterial Blood Oxygen Saturation 94.4 L [place] Test ACCEPTAB Arterial Blood Gas Puncture Site Left Radial Arterial Blood Carboxyhemoglobin 0.6 Arterial Blood Date Drawn 08/17/2016 7:29:26 AM Arterial Blood Methemoglobin 0.6 Arterial Blood pCO2 (Temp correct) 57.9 H Arterial Blood pH (Temp corrected) 7.433 Arterial Blood pO2 (Temp corrected) 69.7 L Blood Gas A-a O2 Differential 54.3 H Blood Gas Modality NASAL CANNULA Blood Gas Notified Time 08/17/2016 8:05:02 AM Blood Gas Notified Whom JLD Blood Gas Specimen Source Blood arterial Blood Gas Temperature 37.0 FiO2 27.0 Oxyhemoglobin Percent 93.3 Total Hemoglobin 9.1 L Medications Medications Current Medications Aspirin (Halfprin) 81 mg DAILY PO Last administered on 08/17/16 08:09; Admin Dose 81 MG; Start 08/12/16 at 09:00 Clopidogrel Bisulfate (plaVIX) 75 mg DAILY PO Last administered on 08/17/16 08: 09; Admin Dose 75 MG; Start 08/12/16 at 09:00 Ferrous Sulfate (Ferrous Sulfate (Ec)) 325 mg BID PO Last administered on 08:09; Admin Dose 325 MG; Start 08/11/16 at 21:00 Finasteride (Proscar) 5 mg DAILY PO Last administered on 08/17/16 08:08; Admin Dose 5 MG; Start 08/12/16 at 09:00 Fluticasone Propionate (Flonase 0.05% Nasal) 1 spray BID NASAL Last administered on 08/17/16 08:10; Admin Dose 1 SPRAY; Start 08/11/16 at 21:00 Gabapentin (Neurontin) 300 mg TID PO Last administered on 08/17/16 13:20; Admin Dose 300 MG; Start 08/11/16 at 21:00 Guaifenesin/ Dextromethorphan (Robitussin Dm Liquid Cup) 10 ml Q4H PRN PO COUGH Last administered on 08/16/16 16:30; Admin Dose 10 ML; Start 08/11/16 at 17:00 Lactobacillus Acidoph/Bulgaricus (Floranex) 1 tab TID PO Last administered on 13:20; Admin Dose 1 TAB; Start 08/11/16 at 21:00 Montelukast Sodium (Singulair) 10 mg HS PO Last administered on 08/16/16 20:24 ; Admin Dose 10 MG; Start 08/11/16 at 21:00 Multivitamins Therapeutic (Theragran) 1 tab DAILY PO Last administered on 08:09; Admin Dose 1 TAB; Start 08/12/16 at 09:00 Oxycodone/ Acetaminophen (Endocet (10/ 325)) 1 tab Q6 PRN PO PAIN Last administered on 08/15/16 19:04; Admin Dose 1 TAB; Start 08/11/16 at 17:00 Pantoprazole (Protonix Tab) 40 mg DAILY PO Last administered on 08/17/16 08:08 ; Admin Dose 40 MG; Start 08/12/16 at 09:00 Salmeterol Xinafoate/ Fluticasone (Advair 500/50 Diskus) 1 inh BID INH Last administered on 08/17/16 08:10; Admin Dose 1 INH; Start 08/11/16 at 21:00 Tamsulosin HCl (Flomax) 0.4 mg HS PO Last administered on 08/16/16 20:25; Admin Dose 0.4 MG; Start 08/11/16 at 21:00 Tiotropium [place] (Spiriva) 1 inh DAILY INH Last administered on 08/17/16 08: 09; Admin Dose 1 INH; Start 08/12/16 at 09:00 Guaifenesin/ Dextromethorphan (Mucinex Dm) 1 tab BID PO Last administered on 09:00; Admin Dose 1 TAB; Start 08/12/16 at 09:00 Fish Oil (Fish Oil) 1,000 mg DAILY PO Last administered on 08/17/16 08:08; Admin Dose 1,000 MG; Start 08/12/16 at 09:00 Atorvastatin Calcium (Lipitor) 20 mg DAILY@21 PO Last administered on 08/16/16 20:24; Admin Dose 20 MG; Start 08/11/16 at 21:58 Ondansetron HCl (Zofran Inj) 4 mg Q6H PRN IV NAUSEA AND/OR VOMITING Last administered on 08/15/16 06:12; Admin Dose 4 MG; Start 08/11/16 at 17:00 Nitroglycerin (Nitroglycerin (Sl Tab) 0.4 Mg) 1 tab Q5M PRN SL CHEST PAIN; Start 08/11/16 at 17:00 Acetaminophen (Tylenol Tab) 650 mg Q6H PRN PO PAIN LEVEL 1-3 OR FEVER Last administered on 08/16/16 03:23; Admin Dose 650 MG; Start 08/11/16 at 17:00 Morphine Sulfate (morphine) 2 mg Q4H PRN IV PAIN LEVEL 7-10; Start 08/11/16 at 17:00 Magnesium Hydroxide (Milk Of Mag) 30 ml DAILY PRN PO CONSTIPATION; Start at 17:00 Bisacodyl 10 mg [address] CONSTIPATION; Start 08/11/16 at 17:00 Piperacillin Sod/ Tazobactam Sod 100 ml @ 200 mls/hr Q8 IVPB Last administered on 08/17/16 15:49; Admin Dose 200 MLS/HR; Start 08/11/16 at 22:00 Vancomycin HCl (Vancocin) 250 ml @ 125 mls/hr Q24H IVPB Last administered on 10:55; Admin Dose 125 MLS/HR; Start 08/12/16 at 11:00 IV Flush (NS 10 ml) 10 ml PRN PRN IV IV PROTOCOL; Start 08/12/16 at 18:30 Silver Sulfadiazine (Thermazene 1% 25 Gm) 1 applic DAILY TOP Last administered on 08/17/16 08:10; Admin Dose 1 APPLIC; Start 08/13/16 at 12:00 Amiodarone HCl (Cordarone) 400 mg BID PO Last administered on 08/17/16 08:08; Admin Dose 400 MG; Start 08/13/16 at 13:30 Mupirocin (Bactroban) 1 applic BID TOP Last administered on 08/17/16 08:10; Admin Dose 1 APPLIC; Start 08/13/16 at 21:00; Stop 08/27/16 at 20:59 Docusate Sodium (Colace) 100 mg Q12 PO Last administered on 08/17/16 08:09; Admin Dose 100 MG; Start 08/15/16 at 10:30 Miscellaneous Information (*Rx Drug Level Order Reminder*) VANCO TROUGH @ 1, 000 ON... ONCE ONCE XX ; Start 08/18/16 at 10:00; Stop 08/18/16 at 10:01 Calos Peralta DO Aug 17, 2016 18:40
--- NOTE | 2016-08-17 19:24 | RADRPT ---
PROCEDURE: Ultrasound of the bilateral lower extremity venous system. CLINICAL INDICATION: Bilateral leg pain and swelling, deep venous thrombosis TECHNIQUE: Mead scale with and without compression, color doppler, spectral doppler of the venous system of the bilateral lower extremities was performed. Venous augmentation maneuvers were utilized . COMPARISON: No prior studies are available for comparison. FINDINGS: RIGHT: Common femoral vein: Patent. Superficial femoral vein: Patent. Popliteal vein: Patent. Calf veins: Patent. No soft tissue abnormalities are identified. LEFT: Common femoral vein: Patent. Superficial femoral vein: Patent. Popliteal vein: Patent. Calf veins: Patent. No soft tissue abnormalities are identified. IMPRESSION: No evidence of a deep vein thrombosis within the bilateral lower extremities. RPTAT: AADD .Piter Booker MD, Date Time Electronically viewed and signed by .Piter Booker MD, on 08/17/2016 19:24 .B/
[2016-08-17] MEDS ORDERED: BUMETANIDE 3 MG in DEXTROSE 5% 18 ML IV ONE (20:00)
[2016-08-17] MEDS: ATORVASTATIN 20 MG TAB PO SCH (22:29)
[2016-08-17] MEDS: MONTELUKAST 10 MG TAB PO SCH (22:29)
[2016-08-17] MEDS: TAMSULOSIN (SR) 0.4 MG CAP PO SCH (22:30)
[2016-08-18] VITALS (10 sets, daily range): BP systolic 125–144; BP diastolic 58–83; PULSE 60–75; RESP 16–19
[2016-08-18] MEDS: LEVALBUTEROL (NEB) 0.63 MG/3 ML AMP HHN SCH ×6 (01:33→21:03)
[2016-08-18] MEDS: PIPER-TAZO 3.375 GM IV (PMX) 100 ML IVPB SCH ×3 (05:23→22:03)
[2016-08-18] MEDS: BUMETANIDE 1 MG INJ IV SCH ×2 (05:24→17:41)
[2016-08-18] MEDS: ACETAMINOPHEN 325 MG TAB PO PRN (06:08)
[2016-08-18 07:06] LABS: ADD SCAN DIFF NO
[2016-08-18 07:15] LABS: BASOPHILS % 0.6 % (0.0-2.0); EOSINOPHILS # 0.2 10^3/ul (0.0-0.5); EOSINOPHILS % 4.5 % (0.0-7.0); HEMATOCRIT 26.9 % (42.0-52.0); HEMOGLOBIN 8.8 g/dl (14.0-18.0); LYMPHOCYTES % 38.2 % (15.0-51.0); MEAN CORPUSCULAR HEMOGLOBIN 31.3 pg (29.0-33.0); MEAN CORPUSCULAR HGB CONC 32.7 g/dl (32.0-37.0); MEAN CORPUSCULAR VOLUME 95.7 fl (82.0-101.0); MEAN PLATELET VOLUME 9.8 fl (7.4-10.4); MONOCYTE # 0.5 10^3/ul (0.3-0.9); NEUTROPHIL # 2.4 10^3/ul (1.6-7.5); NEUTROPHILS % 45.2 % (39.0-77.0); PLATELET COUNT 214 10^3/UL (140-415); RED BLOOD COUNT 2.81 10^6/ul (4.70-6.10); RED CELL DISTRIBUTION WIDTH 17.5 % (11.5-14.5); WHITE BLOOD COUNT 5.3 10^3/ul (4.8-10.8)
[2016-08-18 07:22] LABS: POTASSIUM 3.2 mmol/L (3.5-5.1)
[2016-08-18 07:25] LABS: CREATININE 0.68 mg/dl (0.61-1.24)
[2016-08-18] MEDS: MUPIROCIN 2% 22 GM OINT TOP SCH ×2 (08:40→20:12)
[2016-08-18] MEDS: SILVER SULFADIAZINE 1% 25 GM CR TOP SCH (08:40)
[2016-08-18] MEDS: TIOTROPIUM 18 MCG CAPSULE INHA DEV INH SCH (08:41)
[2016-08-18] MEDS: SALMETEROL/FLUTICASONE 500/50 INHA INH SCH ×2 (08:41→20:13)
[2016-08-18] MEDS: FLUTICASONE 0.05% 16 GM NAS SPRAY NASAL SCH ×2 (08:41→20:11)
[2016-08-18] MEDS: CLOPIDOGREL 75 MG TAB PO SCH (08:42)
[2016-08-18] MEDS: MULTIVITAMINS THERAPEUTIC TAB PO SCH (08:42)
[2016-08-18] MEDS: PANTOPRAZOLE (EC) 40 MG TAB PO SCH (08:42)
[2016-08-18] MEDS: ASPIRIN (EC) 81 MG TAB PO SCH (08:42)
[2016-08-18] MEDS: GABAPENTIN 300 MG CAP PO SCH ×3 (08:42→20:13)
[2016-08-18] MEDS: LACTOBACILLUS CHEW TAB PO SCH ×3 (08:42→20:12)
[2016-08-18] MEDS: DOCUSATE SODIUM 100 MG CAP PO SCH ×2 (08:43→20:13)
[2016-08-18] MEDS: GUAIFENESIN/DM (SR) TAB PO SCH ×2 (08:43→20:12)
[2016-08-18] MEDS: FINASTERIDE 5 MG TAB PO SCH (08:43)
[2016-08-18] MEDS: FISH OIL 1,000 MG CAP PO SCH (08:43)
[2016-08-18] MEDS: FERROUS SULFATE (EC) 325 MG TAB PO SCH ×2 (08:43→20:12)
[2016-08-18] MEDS: AMIODARONE 200 MG TAB PO SCH ×2 (08:44→20:13)
[2016-08-18 10:11] LABS: MAGNESIUM 1.3 mg/dl (1.7-2.5); PHOSPHORUS 2.5 mg/dl (2.5-4.9)
[2016-08-18] MEDS: VANCOMYCIN 1 GM in NS 250 ML IVPB SCH (11:53)
[2016-08-18] MEDS ORDERED: POTASSIUM CHLORIDE (SR) 20 MEQ TAB PO STA ×2 (13:48→15:36)
--- NOTE | 2016-08-18 14:03 | PN ---
Date/Time of Note Date/Time of Note DATE: 08/18/16 TIME: 13:51 Assessment/Plan VTE Prophylaxis VTE Prophylaxis Intervention: SCD's Lines/Catheters IV Catheter Type (from Nrs): PICC Line Central line still needed: Yes (IV access ) Urinary Cath still in place: Yes Reason Cath still needed: urinary retention (chronic) Assessment/Plan Assessment/Plan 81-year-old male with: 1. CHF exacerbation and volume overload, resolving, Bumex gtt overnight and Bumex scheduled now with good diuresis On Amio for Afib/flutter. Still with rates between 80-120's. 2. Coronary artery disease with ischemic cardiomyopathy, status post transcatheter aortic valve replacement, status post biventricular pacer placement. Elevated troponin, trending down and Cardiology following, latest EF 45 to 50% Continue current cardiac medications including Aspirin and Plavix. On Amiodarone with atrial fibrillation/atrial flutter. Monitoring volume status closely, on diuresis. 3. Acute respiratory failure with known chronic hypoxemia, chronic obstructive pulmonary disease. Back on 2L NC which is his outpatient chronic O2 requirement Continue Lasix for diuresis Continue nebulizer treatment, Advair and Spiriva at this time. CXR prn in AM 4. Bilateral lower extremity erythema concerning for cellulitis given his presentation. Keeps improving Continue vancomycin and Zosyn. 5. Chronic kidney disease. Renal function stable. Replete K and Mag today. On Bumex 6. 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 UA positive and Urine culture with Pseudomonas sensitive to Zosyn. Arte[place] catheter changed on this admission. Continue current abx based on culture results 7. Acute on chronic Anemia of chronic disease: s/p 2 units pRBC. Monitor Hb slowly trending down but stable today, no signs of acute bleeding. 8. Hypertension. Currently normotensive, all BP medications held. BP stable on diuresis. 9. Hypothyroidism. Continue current meds. 10. Temporal arteritis, stable. Prophylaxis: SCDs for DVT prophylaxis and Protonix for GI prophylaxis. DISPOSITION: Transfer to Telemetry today, A flutter controlled and volume status much improved, back on 2L to 4L NC. On amiodarone, IV antibiotics, diuresis. Cardiology and Pulmonary following. SNF discharge in the next 48 hrs hopefully. Subjective 24 Hr Interval Summary Free Text/Dictation Patient seems improved today PT eval pending S/p Bumex gtt overnight with good diuresis Replete electrolytes today D/c plan for SNF in the next 48 hrs hopefully Exam/Review of Systems Vital Signs Vitals Vital Signs Date Time Temp Pulse Resp B/P Pulse Ox O2 Delivery O2 Flow Rate FiO2 08/18/16 12:27 60 24 99 Nasal Cannula 4.0 08/18/16 12:02 98.3 139/79 08/17/16 08:53 28 Intake and Output 08/17/16 08/17/16 08/18/16 15:00 23:00 07:00 Intake Total 970 ml 500 ml 530 ml Output Total 400 ml 700 ml 3300 ml Balance 570 ml -200 ml -2770 ml Exam Constitutional: alert, frail, oriented Respiratory: crackles/rales (mainly on expiration ), normal air movement, other (on 2 to 4 L NC ) Cardiovascular: irregular rhythm, nl pulses Gastrointestinal: non-tender, soft Extremities: normal pulses, other (trace to +1 edema ) 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: ELECTRIC SPOT WELDER II-XII intact, nl mental status, nl speech, other ( generalized weakness ) Results Result Diagram: 08/18/16 0636 08/18/16 0634 Results 24 hrs Laboratory Tests Test 08/18/16 06:34 08/18/16 06:36 08/18/16 10:09 Anion Gap 7 L Blood Urea Nitrogen 8 Calcium Level 8.0 L Carbon Dioxide Level 44 *H Chloride Level 93 L Creatinine 0.68 Glucose Level 86 Magnesium Level 1.3 L Phosphorus Level 2.5 Potassium Level 3.2 L Sodium Level 141 Basophils # 0.0 Basophils % 0.6 Eosinophils # 0.2 Eosinophils % 4.5 Hematocrit 26.9 L Hemoglobin 8.8 L Lymphocytes # 2.0 Lymphocytes % 38.2 Mean Corpuscular Hemoglobin 31.3 Mean Corpuscular Hemoglobin Concent 32.7 Mean Corpuscular Volume 95.7 Mean Platelet Volume 9.8 Monocytes # 0.5 Monocytes % 10.0 Neutrophils # 2.4 Neutrophils % 45.2 Nucleated Red Blood Cells # 0.0 Nucleated Red Blood Cells % 0.0 Platelet Count 214 Red Blood Count 2.81 L Red Cell Distribution Width 17.5 H White Blood Count 5.3 Vancomycin Level Trough 14.0 Medications Medications Current Medications Aspirin (Halfprin) 81 mg DAILY PO Last administered on 08/18/16t 08:42; Admin Dose 81 MG; Start 3/1/17 at 09:00 Clopidogrel Bisulfate (plaVIX) 75 mg DAILY PO Last administered on 08/18/16 08: 42; Admin Dose 75 MG; Start 08/12/16 at 09:00 Ferrous Sulfate (Ferrous Sulfate (Ec)) 325 mg BID PO Last administered on 08:43; Admin Dose 325 MG; Start 08/11/16 at 21:00 Finasteride (Proscar) 5 mg DAILY PO Last administered on 08/18/16 08:43; Admin Dose 5 MG; Start 08/12/16 at 09:00 Fluticasone Propionate (Flonase 0.05% Nasal) 1 spray BID NASAL Last administered on 08/18/16 08:41; Admin Dose 1 SPRAY; Start 08/11/16 at 21:00 Gabapentin (Neurontin) 300 mg TID PO Last administered on 08/18/16 08:42; Admin Dose 300 MG; Start 08/11/16 at 21:00 Guaifenesin/ Dextromethorphan (Robitussin Dm Liquid Cup) 10 ml Q4H PRN PO COUGH Last administered on 08/16/16 16:30; Admin Dose 10 ML; Start 08/11/16 at 17:00 Lactobacillus Acidoph/Bulgaricus (Floranex) 1 tab TID PO Last administered on 08:42; Admin Dose 1 TAB; Start 08/11/16 at 21:00 Montelukast Sodium (Singulair) 10 mg HS PO Last administered on 08/17/16 22:29 ; Admin Dose 10 MG; Start 08/11/16 at 21:00 Multivitamins Therapeutic (Theragran) 1 tab DAILY PO Last administered on 08:42; Admin Dose 1 TAB; Start 08/12/16 at 09:00 Oxycodone/ Acetaminophen (Endocet (10/ 325)) 1 tab Q6 PRN PO PAIN Last administered on 08/15/16 19:04; Admin Dose 1 TAB; Start 08/11/16 at 17:00 Pantoprazole (Protonix Tab) 40 mg DAILY PO Last administered on 08/18/16 08:42 ; Admin Dose 40 MG; Start 08/12/16 at 09:00 Salmeterol Xinafoate/ Fluticasone (Advair 500/50 Diskus) 1 inh BID INH Last administered on 08/18/16 08:41; Admin Dose 1 INH; Start 08/11/16 at 21:00 Tamsulosin HCl (Flomax) 0.4 mg HS PO Last administered on 08/17/16 22:30; Admin Dose 0.4 MG; Start 08/11/16 at 21:00 Tiotropium [place] (Spiriva) 1 inh DAILY INH Last administered on 08/18/16 08: 41; Admin Dose 1 INH; Start 08/12/16 at 09:00 Guaifenesin/ Dextromethorphan (Mucinex Dm) 1 tab BID PO Last administered on 08:43; Admin Dose 1 TAB; Start 08/12/16 at 09:00 Fish Oil (Fish Oil) 1,000 mg DAILY PO Last administered on 08/18/16 08:43; Admin Dose 1,000 MG; Start 08/12/16 at 09:00 Atorvastatin Calcium (Lipitor) 20 mg DAILY@21 PO Last administered on 08/17/16 22:29; Admin Dose 20 MG; Start 08/11/16 at 21:58 Ondansetron HCl (Zofran Inj) 4 mg Q6H PRN IV NAUSEA AND/OR VOMITING Last administered on 08/15/16 06:12; Admin Dose 4 MG; Start 08/11/16 at 17:00 Nitroglycerin (Nitroglycerin (Sl Tab) 0.4 Mg) 1 tab Q5M PRN SL CHEST PAIN; Start 08/11/16 at 17:00 Acetaminophen (Tylenol Tab) 650 mg Q6H PRN PO PAIN LEVEL 1-3 OR FEVER Last administered on 08/18/16 06:08; Admin Dose 650 MG; Start 08/11/16 at 17:00 Morphine Sulfate (morphine) 2 mg Q4H PRN IV PAIN LEVEL 7-10; Start 08/11/16 at 17:00 Magnesium Hydroxide (Milk Of Mag) 30 ml DAILY PRN PO CONSTIPATION Last administered on 08/18/16 11:07; Admin Dose 30 ML; Start 08/11/16 at 17:00 Bisacodyl 10 mg 10 mg DAILY PRN [place] CONSTIPATION Last administered on 08/18/16 11:07; Admin Dose 10 MG; Start 08/11/16 at 17:00 Piperacillin Sod/ Tazobactam Sod 100 ml @ 200 mls/hr Q8 IVPB Last administered on 08/18/16 05:23; Admin Dose 200 MLS/HR; Start 08/11/16 at 22:00 Vancomycin HCl (Vancocin) 250 ml @ 125 mls/hr Q24H IVPB Last administered on 11:53; Admin Dose 125 MLS/HR; Start 08/12/16 at 11:00 IV Flush (NS 10 ml) 10 ml PRN PRN IV IV PROTOCOL; Start 08/12/16 at 18:30 Silver Sulfadiazine (Thermazene 1% 25 Gm) 1 applic DAILY TOP Last administered on 08/18/16 08:40; Admin Dose 1 APPLIC; Start 08/13/16 at 12:00 Amiodarone HCl (Cordarone) 400 mg BID PO Last administered on 08/18/16 08:44; Admin Dose 400 MG; Start 08/13/16 at 13:30 Mupirocin (Bactroban) 1 applic BID TOP Last administered on 08/18/16 08:40; Admin Dose 1 APPLIC; Start 08/13/16 at 21:00; Stop 08/27/16 at 20:59 Docusate Sodium (Colace) 100 mg Q12 PO Last administered on 08/18/16 08:43; Admin Dose 100 MG; Start 08/15/16 at 10:30 RICHIE SWEET Aug 18, 2016 14:03
[2016-08-18] MEDS ORDERED: MAGNESIUM SULFATE 4 GM/100 ML 100 ML IVPB ONE (15:30)
[2016-08-18] MEDS ORDERED: ACETAZOLAMIDE 500 MG INJ IV ONE (16:00)
--- NOTE | 2016-08-18 16:52 | CONS ---
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 Chronic obstructive pulmonary disease on home oxygen. Acute blood loss anemia status post blood transfusion -Patient with improvement respiratory rolon after Bumex drip overnight. Continue IV Bumex, maintain potassium above 4.0 and magnesium above 2.0. Decrease dose of amiodarone, will give Diamox for elevated bicarb. Consultation Date/Type/Reason Admit Date/Time Aug 11, 2016 at 16:21 Type of Consultation: cv 24 HR Interval Summary Free Text/Dictation Shortness of breath is mildly better compared to yesterday, denies chest pain or palpitations Exam/Review of Systems Vital Signs Vitals Vital Signs Date Time Temp Pulse Resp B/P Pulse Ox O2 Delivery O2 Flow Rate FiO2 08/18/16 16:33 98.1 60 18 144/70 95 08/18/16 12:27 Nasal Cannula 4.0 08/17/16 08:53 28 Intake and Output 08/17/16 08/17/16 08/18/16 15:00 23:00 07:00 Intake Total 970 ml 500 ml 530 ml Output Total 400 ml 700 ml 3300 ml Balance 570 ml -200 ml -2770 ml Exam No apparent distress Constitutional: alert, frail, oriented Head: normocephalic Neck: supple Respiratory: other (Coarse breath sounds bilaterally with scattered rhonchi, no wheezing) Cardiovascular: other (S1-S2 heard), regular rate and rhythm, systolic murmur Gastrointestinal: bowel sounds, non-tender, other (No guarding), soft Extremities: edema Skin: ecchymosis Results Result Diagram: 08/18/16 0636 08/18/16 0634 Results 24 hrs Laboratory Tests Test 08/18/16 06:34 08/18/16 06:36 08/18/16 10:09 Anion Gap 7 L Blood Urea Nitrogen 8 Calcium Level 8.0 L Carbon Dioxide Level 44 *H Chloride Level 93 L Creatinine 0.68 Glucose Level 86 Magnesium Level 1.3 L Phosphorus Level 2.5 Potassium Level 3.2 L Sodium Level 141 Basophils # 0.0 Basophils % 0.6 Eosinophils # 0.2 Eosinophils % 4.5 Hematocrit 26.9 L Hemoglobin 8.8 L Lymphocytes # 2.0 Lymphocytes % 38.2 Mean Corpuscular Hemoglobin 31.3 Mean Corpuscular Hemoglobin Concent 32.7 Mean Corpuscular Volume 95.7 Mean Platelet Volume 9.8 Monocytes # 0.5 Monocytes % 10.0 Neutrophils # 2.4 Neutrophils % 45.2 Nucleated Red Blood Cells # 0.0 Nucleated Red Blood Cells % 0.0 Platelet Count 214 Red Blood Count 2.81 L Red Cell Distribution Width 17.5 H White Blood Count 5.3 Vancomycin Level Trough 14.0 Medications Medications Current Medications Aspirin (Halfprin) 81 mg DAILY PO Last administered on 08/18/16 08:42; Admin Dose 81 MG; Start 08/12/16 at 09:00 Clopidogrel Bisulfate (plaVIX) 75 mg DAILY PO Last administered on 08/18/16 08: 42; Admin Dose 75 MG; Start 08/12/16 at 09:00 Ferrous Sulfate (Ferrous Sulfate (Ec)) 325 mg BID PO Last administered on 08:43; Admin Dose 325 MG; Start 08/11/16 at 21:00 Finasteride (Proscar) 5 mg DAILY PO Last administered on 08/18/16 08:43; Admin Dose 5 MG; Start 08/12/16 at 09:00 Fluticasone Propionate (Flonase 0.05% Nasal) 1 spray BID NASAL Last administered on 08/18/16 08:41; Admin Dose 1 SPRAY; Start 08/11/16 at 21:00 Gabapentin (Neurontin) 300 mg TID PO Last administered on 08/18/16 14:27; Admin Dose 300 MG; Start 08/11/16 at 21:00 Guaifenesin/ Dextromethorphan (Robitussin Dm Liquid Cup) 10 ml Q4H PRN PO COUGH Last administered on 08/16/16 16:30; Admin Dose 10 ML; Start 08/11/16 at 17:00 Lactobacillus Acidoph/Bulgaricus (Floranex) 1 tab TID PO Last administered on 14:27; Admin Dose 1 TAB; Start 08/11/16 at 21:00 Montelukast Sodium (Singulair) 10 mg HS PO Last administered on 08/17/16 22:29 ; Admin Dose 10 MG; Start 08/11/16 at 21:00 Multivitamins Therapeutic (Theragran) 1 tab DAILY PO Last administered on 08:42; Admin Dose 1 TAB; Start 08/12/16 at 09:00 Oxycodone/ Acetaminophen (Endocet (10/ 325)) 1 tab Q6 PRN PO PAIN Last administered on 08/15/16 19:04; Admin Dose 1 TAB; Start 08/11/16 at 17:00 Pantoprazole (Protonix Tab) 40 mg DAILY PO Last administered on 08/18/16 08:42 ; Admin Dose 40 MG; Start 08/12/16 at 09:00 Salmeterol Xinafoate/ Fluticasone (Advair 500/50 Diskus) 1 inh BID INH Last administered on 08/18/16 08:41; Admin Dose 1 INH; Start 08/11/16 at 21:00 Tamsulosin HCl (Flomax) 0.4 mg HS PO Last administered on 08/17/16 22:30; Admin Dose 0.4 MG; Start 08/11/16 at 21:00 Tiotropium [place] (Spiriva) 1 inh DAILY INH Last administered on 08/18/16 08: 41; Admin Dose 1 INH; Start 08/12/16 at 09:00 Guaifenesin/ Dextromethorphan (Mucinex Dm) 1 tab BID PO Last administered on 08:43; Admin Dose 1 TAB; Start 08/12/16 at 09:00 Fish Oil (Fish Oil) 1,000 mg DAILY PO Last administered on 08/18/16 08:43; Admin Dose 1,000 MG; Start 08/12/16 at 09:00 Atorvastatin Calcium (Lipitor) 20 mg DAILY@21 PO Last administered on 08/17/16 22:29; Admin Dose 20 MG; Start 08/11/16 at 21:58 Ondansetron HCl (Zofran Inj) 4 mg Q6H PRN IV NAUSEA AND/OR VOMITING Last administered on 08/15/16 06:12; Admin Dose 4 MG; Start 08/11/16 at 17:00 Nitroglycerin (Nitroglycerin (Sl Tab) 0.4 Mg) 1 tab Q5M PRN SL CHEST PAIN; Start 08/11/16 at 17:00 Acetaminophen (Tylenol Tab) 650 mg Q6H PRN PO PAIN LEVEL 1-3 OR FEVER Last administered on 08/18/16 06:08; Admin Dose 650 MG; Start 08/11/16 at 17:00 Morphine Sulfate (morphine) 2 mg Q4H PRN IV PAIN LEVEL 7-10; Start 08/11/16 at 17:00 Magnesium Hydroxide (Milk Of Mag) 30 ml DAILY PRN PO CONSTIPATION Last administered on 08/18/16 11:07; Admin Dose 30 ML; Start 08/11/16 at 17:00 Bisacodyl 10 mg 10 mg DAILY PRN [place] CONSTIPATION Last administered on 08/18/16 11:07; Admin Dose 10 MG; Start 08/11/16 at 17:00 Piperacillin Sod/ Tazobactam Sod 100 ml @ 200 mls/hr Q8 IVPB Last administered on 08/18/16 14:28; Admin Dose 200 MLS/HR; Start 08/11/16 at 22:00 Vancomycin HCl (Vancocin) 250 ml @ 125 mls/hr Q24H IVPB Last administered on 11:53; Admin Dose 125 MLS/HR; Start 08/12/16 at 11:00 IV Flush (NS 10 ml) 10 ml PRN PRN IV IV PROTOCOL; Start 08/12/16 at 18:30 Silver Sulfadiazine (Thermazene 1% 25 Gm) 1 applic DAILY TOP Last administered on 08/18/16 08:40; Admin Dose 1 APPLIC; Start 08/13/16 at 12:00 Mupirocin (Bactroban) 1 applic BID TOP Last administered on 08/18/16 08:40; Admin Dose 1 APPLIC; Start 08/13/16 at 21:00; Stop 08/27/16 at 20:59 Docusate Sodium 100 mg 100 mg Q12 PO Last administered on 08/18/16 08:43; Admin Dose 100 MG; Start 08/15/16 at 10:30 Magnesium Sulfate (Magnesium Sulfate 4 Gm/100 ml) 100 ml @ 25 mls/hr ONCE ONCE IVPB Last administered on 08/18/16 16:23; Admin Dose 25 MLS/HR; Start 08/18 at 15:30; Stop 08/18/16 at 19:29 Amiodarone HCl (Cordarone) 200 mg BID PO ; Start 08/18/16 at 21:00 Acetazolamide (Diamox) 250 mg BID IV ; Start 08/19/16 at 06:00; Stop 08/19/16 at 21:01 Potassium Chloride (Klor-Con 20) 40 meq ONCE ONCE PO ; Start 08/18/16 at 20:00; Stop 08/18/16 at 20:01 Calos Peralta DO Aug 18, 2016 16:52
--- NOTE | 2016-08-18 17:19 | PN ---
DATE: 08/18/2016 SUBJECTIVE: This is a followup note. Patient's remains relatively stable, still experiencing signi ficant shortness of breath on minimal exertion. PHYSICAL EXAMINATION: VITAL SIGNS: Temperature 98, pulse is 60, blood pressure 139/79, O2 saturation 96% on 4 L nasal can nula. NECK: Supple. No JVD or lymphadenopathy. CARDIAC: S1, S2, no added sounds or murmurs. CHEST: Diminished air entry bilaterally. ABDOMEN: Soft, nontender. No guarding or rebound. EXTREMITIES: No cyanosis, clubbing, edema. NEUROLOGIC: Generalized weakness. LABORATORY DATA: White count 5.3, hemoglobin 8.8, platelets of 214, BUN 8, creatinine 0.68. ABG sh owed a PaO2 of 69 and pCO2 of 57 on 2 L nasal cannula. IMPRESSION AND PLAN: 1. Status post hypoxemic respiratory failure. 2. Recent pneumonia. 3. Congestive cardiac failure. 4. Benign prostatic hypertrophy. 5. Severe chronic obstructive pulmonary disease on home O2. The patient will require: 1. Continued bronchodilators. 2. Supplemental O2. 3. Encourage out of bed. 4. Consider transfer to half-way facility. Dictated By: SIOMARA VALDES/LATISHA Conf#: [id number] DID#: [id number]
[2016-08-18] MEDS ORDERED: POTASSIUM CHLORIDE (SR) 20 MEQ TAB PO ONE (20:00)
[2016-08-18] MEDS: ATORVASTATIN 20 MG TAB PO SCH (20:12)
[2016-08-18] MEDS: TAMSULOSIN (SR) 0.4 MG CAP PO SCH (20:13)
[2016-08-18] MEDS: MONTELUKAST 10 MG TAB PO SCH (20:14)
[2016-08-19] VITALS (12 sets, daily range): BP systolic 107–142; BP diastolic 8–66; PULSE 60–62; RESP 16–18
[2016-08-19] MEDS: LEVALBUTEROL (NEB) 0.63 MG/3 ML AMP HHN SCH ×6 (01:24→21:45)
[2016-08-19] MEDS: ACETAZOLAMIDE 500 MG INJ IV SCH ×3 (05:33→21:37)
[2016-08-19] MEDS: PIPER-TAZO 3.375 GM IV (PMX) 100 ML IVPB SCH ×3 (05:33→21:37)
[2016-08-19] MEDS: BUMETANIDE 1 MG INJ IV SCH (05:34)
[2016-08-19 05:58] LABS: ADD SCAN DIFF NO
[2016-08-19 06:03] LABS: BASOPHILS % 0.3 % (0.0-2.0); EOSINOPHILS # 0.3 10^3/ul (0.0-0.5); EOSINOPHILS % 4.6 % (0.0-7.0); HEMATOCRIT 29.5 % (42.0-52.0); LYMPHOCYTES # 2.3 10^3/ul (0.8-2.9); LYMPHOCYTES % 38.2 % (15.0-51.0); MEAN CORPUSCULAR HEMOGLOBIN 30.5 pg (29.0-33.0); MEAN CORPUSCULAR HGB CONC 30.5 g/dl (32.0-37.0); MEAN PLATELET VOLUME 9.8 fl (7.4-10.4); MONOCYTE # 0.6 10^3/ul (0.3-0.9); NEUTROPHIL # 2.7 10^3/ul (1.6-7.5); NEUTROPHILS % 45.4 % (39.0-77.0); PLATELET COUNT 219 10^3/UL (140-415); RED BLOOD COUNT 2.95 10^6/ul (4.70-6.10); RED CELL DISTRIBUTION WIDTH 17.9 % (11.5-14.5); WHITE BLOOD COUNT 5.9 10^3/ul (4.8-10.8)
[2016-08-19 06:49] LABS: ALBUMIN 2.6 g/dl (3.3-4.9)
[2016-08-19 06:50] LABS: POTASSIUM 3.8 mmol/L (3.5-5.1)
[2016-08-19 06:52] LABS: ALBUMIN/GLOBULIN RATIO 0.96; BILIRUBIN,INDIRECT 0.2 mg/dl (0-1.1); BILIRUBIN,TOTAL 0.2 mg/dl (0.2-1.3); CREATININE 0.86 mg/dl (0.61-1.24); TOTAL PROTEIN 5.3 g/dl (6.1-8.1)
[2016-08-19 06:53] LABS: CALCIUM 8.2 mg/dl (8.4-10.2)
[2016-08-19 06:58] LABS: MAGNESIUM 2.4 mg/dl (1.7-2.5); PHOSPHORUS 2.5 mg/dl (2.5-4.9)
[2016-08-19] MEDS: FINASTERIDE 5 MG TAB PO SCH (10:23)
[2016-08-19] MEDS: AMIODARONE 200 MG TAB PO SCH ×2 (10:24→20:29)
[2016-08-19] MEDS: PANTOPRAZOLE (EC) 40 MG TAB PO SCH (10:31)
[2016-08-19] MEDS: TIOTROPIUM 18 MCG CAPSULE INHA DEV INH SCH (10:31)
[2016-08-19] MEDS: LACTOBACILLUS CHEW TAB PO SCH ×3 (10:31→20:28)
[2016-08-19] MEDS: MULTIVITAMINS THERAPEUTIC TAB PO SCH (10:31)
[2016-08-19] MEDS: DOCUSATE SODIUM 100 MG CAP PO SCH ×2 (10:31→20:29)
[2016-08-19] MEDS: GABAPENTIN 300 MG CAP PO SCH ×3 (10:31→20:28)
[2016-08-19] MEDS: CLOPIDOGREL 75 MG TAB PO SCH (10:31)
[2016-08-19] MEDS: FISH OIL 1,000 MG CAP PO SCH (10:31)
[2016-08-19] MEDS: MUPIROCIN 2% 22 GM OINT TOP SCH ×2 (10:32→20:30)
[2016-08-19] MEDS: GUAIFENESIN/DM (SR) TAB PO SCH ×2 (10:32→20:28)
[2016-08-19] MEDS: SALMETEROL/FLUTICASONE 500/50 INHA INH SCH ×2 (10:32→20:40)
[2016-08-19] MEDS: FERROUS SULFATE (EC) 325 MG TAB PO SCH ×2 (10:32→20:28)
[2016-08-19] MEDS: ASPIRIN (EC) 81 MG TAB PO SCH (10:32)
[2016-08-19] MEDS: SILVER SULFADIAZINE 1% 25 GM CR TOP SCH (10:33)
[2016-08-19] MEDS: FLUTICASONE 0.05% 16 GM NAS SPRAY NASAL SCH ×2 (10:33→20:30)
--- NOTE | 2016-08-19 11:07 | PN ---
Date/Time of Note Date/Time of Note DATE: 08/19/16 TIME: 10:58 Assessment/Plan VTE Prophylaxis VTE Prophylaxis Intervention: SCD's Lines/Catheters IV Catheter Type (from Nrs): PICC Line Central line still needed: Yes (for IV access and lab draw ) Urinary Cath still in place: Yes Reason Cath still needed: urinary retention (chronic ) Assessment/Plan Assessment/Plan 81-year-old male with: 1. CHF exacerbation and volume overload, resolving, On Bumex and Diamox currently with good diuresis On Amio for Afib/flutter. 100% V paced in 60's 2. Coronary artery disease with ischemic cardiomyopathy, status post transcatheter aortic valve replacement, status post biventricular pacer placement. Elevated troponin, trending down and Cardiology following, latest EF 45 to 50% Continue current cardiac medications including Aspirin and Plavix. On Amiodarone with atrial fibrillation/atrial flutter, V paced currently. Monitoring volume status closely, on diuresis. 3. Resolved Acute respiratory failure with known chronic hypoxemia, chronic obstructive pulmonary disease. Back on 2L to 3L NC which is his outpatient chronic O2 requirement Continue Bumex for diuresis along with few doses of Diamox Continue nebulizer treatment, Advair and Spiriva at this time. 4. Bilateral lower extremity erythema concerning for cellulitis given his presentation. Keeps improving Continue vancomycin and Zosyn. 5. Chronic kidney disease. Renal function stable. Replete K and Mag today. On Bumex and Diamox given metabolic alkalosis 6. 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 UA positive and Urine culture with Pseudomonas sensitive to Zosyn. Linton catheter changed on this admission. Continue current abx based on culture results 7. Acute on chronic Anemia of chronic disease: s/p 2 units pRBC. Monitor Hb slowly trending down but stable today, no signs of acute bleeding. 8. Hypertension. Currently normotensive, all BP medications held. BP stable on diuresis. 9. Hypothyroidism. Continue current meds. 10. Temporal arteritis, stable. Prophylaxis: SCDs for DVT prophylaxis and Protonix for GI prophylaxis. DISPOSITION: Stable on Telemetry, A flutter controlled and volume status much improved, back on 2L to 3L NC. On amiodarone, IV antibiotics, diuresis. Cardiology and Pulmonary following. SNF discharge in the next 24 hrs hopefully if OK with cardiology Subjective 24 Hr Interval Summary Free Text/Dictation Patient doing well today Seems almost Euvolemic, respiratory status much improved D/c plan to SNF in 24 hrs if remains stable, will discuss diuretic regimen with Cardiology Exam/Review of Systems Vital Signs Vitals Vital Signs Date Time Temp Pulse Resp B/P Pulse Ox O2 Delivery O2 Flow Rate FiO2 08/19/16 08:27 60 08/19/16 08:23 20 95 Nasal Cannula 3.0 08/19/16 07:43 97.7 107/55 08/17/16 08:53 28 Intake and Output 08/18/16 08/18/16 08/19/16 15:00 23:00 07:00 Intake Total 240 ml 1060 ml Output Total 600 ml 2000 ml Balance 240 ml 460 ml -2000 ml Exam Constitutional: alert, frail, oriented Respiratory: crackles/rales (scaterred, much improved ), diminished breath sounds (bases much improved also ), normal air movement Cardiovascular: nl pulses, regular rate and rhythm (V paced ) Gastrointestinal: non-tender, soft Genitourinary - Male: other (chronic linton catheter ) Musculoskeletal: other (LE erythema improving and almost resolved ) Extremities: normal pulses, other (trace edema ) 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: [employer] II-XII intact, nl mental status, nl speech, other ( generalised weakness ) Results Result Diagram: 08/19/1644 08/19/16 0544 Results 24 hrs Laboratory Tests Test 08/19/16 05:44 Alanine Aminotransferase (ALT/SGPT) 24 Albumin 2.6 L Albumin/Globulin Ratio 0.96 Alkaline Phosphatase 62 Anion Gap 10 Aspartate Amino Transf (AST/SGOT) 19 Basophils # 0.0 Basophils % 0.3 Blood Urea Nitrogen 9 Calcium Level 8.2 L Carbon Dioxide Level 43 *H Chloride Level 94 L Creatinine 0.86 Direct Bilirubin 0.00 Eosinophils # 0.3 Eosinophils % 4.6 Globulin 2.70 Glucose Level 91 Hematocrit 29.5 L Hemoglobin 9.0 L Indirect Bilirubin 0.2 Lymphocytes # 2.3 Lymphocytes % 38.2 Magnesium Level 2.4 # Mean Corpuscular Hemoglobin 30.5 Mean Corpuscular Hemoglobin Concent 30.5 L Mean Corpuscular Volume 100.0 Mean Platelet Volume 9.8 Monocytes # 0.6 Monocytes % 10.0 Neutrophils # 2.7 Neutrophils % 45.4 Nucleated Red Blood Cells # 0.0 Nucleated Red Blood Cells % 0.0 Phosphorus Level 2.5 Platelet Count 219 Potassium Level 3.8 Red Blood Count 2.95 L Red Cell Distribution Width 17.9 H Sodium Level 140 Total Bilirubin 0.2 Total Protein 5.3 L White Blood Count 5.9 Medications Medications Current Medications Aspirin (Halfprin) 81 mg DAILY PO Last administered on 08/19/16 10:32; Admin Dose 81 MG; Start 08/12/16 at 09:00 Clopidogrel Bisulfate (plaVIX) 75 mg DAILY PO Last administered on 08/19/16 10: 31; Admin Dose 75 MG; Start 08/12/16 at 09:00 Ferrous Sulfate (Ferrous Sulfate (Ec)) 325 mg BID PO Last administered on 10:32; Admin Dose 325 MG; Start 08/11/16 at 21:00 Finasteride (Proscar) 5 mg DAILY PO Last administered on 08/19/16 10:23; Admin Dose 5 MG; Start 08/12/16 at 09:00 Fluticasone Propionate (Flonase 0.05% Nasal) 1 spray BID NASAL Last administered on 08/19/16 10:33; Admin Dose 1 SPRAY; Start 08/11/16 at 21:00 Gabapentin (Neurontin) 300 mg TID PO Last administered on 08/19/16 10:31; Admin Dose 300 MG; Start 08/11/16 at 21:00 Guaifenesin/ Dextromethorphan (Robitussin Dm Liquid Cup) 10 ml Q4H PRN PO COUGH Last administered on 08/16/16 16:30; Admin Dose 10 ML; Start 08/11/16 at 17:00 Lactobacillus Acidoph/Bulgaricus (Floranex) 1 tab TID PO Last administered on 10:31; Admin Dose 1 TAB; Start 08/11/16 at 21:00 Montelukast Sodium (Singulair) 10 mg HS PO Last administered on 08/18/16 20:14 ; Admin Dose 10 MG; Start 08/11/16 at 21:00 Multivitamins Therapeutic (Theragran) 1 tab DAILY PO Last administered on 10:31; Admin Dose 1 TAB; Start 08/12/16 at 09:00 Oxycodone/ Acetaminophen (Endocet (10/ 325)) 1 tab Q6 PRN PO PAIN Last administered on 08/15/16 19:04; Admin Dose 1 TAB; Start 08/11/16 at 17:00 Pantoprazole (Protonix Tab) 40 mg DAILY PO Last administered on 08/19/16 10:31 ; Admin Dose 40 MG; Start 08/12/16 at 09:00 Salmeterol Xinafoate/ Fluticasone (Advair 500/50 Diskus) 1 inh BID INH Last administered on 08/19/16 10:32; Admin Dose 1 INH; Start 08/11/16 at 21:00 Tamsulosin HCl (Flomax) 0.4 mg HS PO Last administered on 08/18/16 20:13; Admin Dose 0.4 MG; Start 08/11/16 at 21:00 Tiotropium [place] (Spiriva) 1 inh DAILY INH Last administered on 08/19/16 10: 31; Admin Dose 1 INH; Start 08/12/16 at 09:00 Guaifenesin/ Dextromethorphan (Mucinex Dm) 1 tab BID PO Last administered on 10:32; Admin Dose 1 TAB; Start 08/12/16 at 09:00 Fish Oil (Fish Oil) 1,000 mg DAILY PO Last administered on 08/19/16 10:31; Admin Dose 1,000 MG; Start 08/12/16 at 09:00 Atorvastatin Calcium (Lipitor) 20 mg DAILY@21 PO Last administered on 08/18/16 20:12; Admin Dose 20 MG; Start 08/11/16 at 21:58 Ondansetron HCl (Zofran Inj) 4 mg Q6H PRN IV NAUSEA AND/OR VOMITING Last administered on 08/15/16 06:12; Admin Dose 4 MG; Start 08/11/16 at 17:00 Nitroglycerin (Nitroglycerin (Sl Tab) 0.4 Mg) 1 tab Q5M PRN SL CHEST PAIN; Start 08/11/16 at 17:00 Acetaminophen (Tylenol Tab) 650 mg Q6H PRN PO PAIN LEVEL 1-3 OR FEVER Last administered on 08/18/16 06:08; Admin Dose 650 MG; Start 08/11/16 at 17:00 Morphine Sulfate (morphine) 2 mg Q4H PRN IV PAIN LEVEL 7-10; Start 08/11/16 at 17:00 Magnesium Hydroxide (Milk Of Mag) 30 ml DAILY PRN PO CONSTIPATION Last administered on 08/18/16 11:07; Admin Dose 30 ML; Start 08/11/16 at 17:00 Bisacodyl 10 mg 10 mg DAILY PRN [place] CONSTIPATION Last administered on 08/18/16 11:07; Admin Dose 10 MG; Start 08/11/16 at 17:00 Piperacillin Sod/ Tazobactam Sod 100 ml @ 200 mls/hr Q8 IVPB Last administered on 08/19/16 05:33; Admin Dose 200 MLS/HR; Start 08/11/16 at 22:00 Vancomycin HCl (Vancocin) 250 ml @ 125 mls/hr Q24H IVPB Last administered on 11:53; Admin Dose 125 MLS/HR; Start 08/12/16 at 11:00 IV Flush (NS 10 ml) 10 ml PRN PRN IV IV PROTOCOL; Start 08/12/16 at 18:30 Silver Sulfadiazine (Thermazene 1% 25 Gm) 1 applic DAILY TOP Last administered on 08/19/16 10:33; Admin Dose 1 APPLIC; Start 08/13/16 at 12:00 Mupirocin (Bactroban) 1 applic BID TOP Last administered on 08/19/16 10:32; Admin Dose 1 APPLIC; Start 08/13/16 at 21:00; Stop 08/27/16 at 20:59 Docusate Sodium (Colace) 100 mg Q12 PO Last administered on 08/19/16 10:31; Admin Dose 100 MG; Start 08/15/16 at 10:30 Amiodarone HCl (Cordarone) 200 mg BID PO Last administered on 08/19/16 10:24; Admin Dose 200 MG; Start 08/18/16 at 21:00 Acetazolamide (Diamox) 250 mg BID IV Last administered on 08/19/16 10:33; Admin Dose 250 MG; Start 08/19/16 at 06:00; Stop 08/19/16 at 21:01 RICHIE SWEET Aug 19, 2016 11:07
--- NOTE | 2016-08-19 12:10 | CONS ---
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 Chronic obstructive pulmonary disease on home oxygen. Acute blood loss anemia status post blood transfusion -Repeat Bumex drip today, blood pressure trend remained stable. Chest x-ray in a.m. Maintain potassium above 4.0 and magnesium above 2.0. Amiodarone dose being tapered. Consultation Date/Type/Reason Admit Date/Time Aug 11, 2016 at 16:21 Type of Consultation: cv 24 HR Interval Summary Free Text/Dictation Patient with intermittent shortness of breath and still with cough which is wet , denies chest pain Exam/Review of Systems Vital Signs Vitals Vital Signs Date Time Temp Pulse Resp B/P Pulse Ox O2 Delivery O2 Flow Rate FiO2 08/19/16 11:45 98.1 60 17 123/57 91 08/19/16 08:23 Nasal Cannula 3.0 08/17/16 08:53 28 Intake and Output 08/18/16 08/18/16 08/19/16 15:00 23:00 07:00 Intake Total 240 ml 1060 ml Output Total 600 ml 2000 ml Balance 240 ml 460 ml -2000 ml Exam Mild dyspnea with extensively speaking Constitutional: alert, frail, oriented Head: normocephalic Neck: supple Respiratory: other (Coarse breath sounds bilaterally with scattered crackles, no wheezing) Cardiovascular: other (S1-S2 heard), regular rate and rhythm Gastrointestinal: bowel sounds, non-tender, other (No guarding), soft Extremities: edema, other (Multiple areas of ecchymosis) Results Result Diagram: 08/19/16 0544 08/19/16 0544 Results 24 hrs Laboratory Tests Test 08/19/16 05:44 Alanine Aminotransferase (ALT/SGPT) 24 Albumin 2.6 L Albumin/Globulin Ratio 0.96 Alkaline Phosphatase 62 Anion Gap 10 Aspartate Amino Transf (AST/SGOT) 19 Basophils # 0.0 Basophils % 0.3 Blood Urea Nitrogen 9 Calcium Level 8.2 L Carbon Dioxide Level 43 *H Chloride Level 94 L Creatinine 0.86 Direct Bilirubin 0.00 Eosinophils # 0.3 Eosinophils % 4.6 Globulin 2.70 Glucose Level 91 Hematocrit 29.5 L Hemoglobin 9.0 L Indirect Bilirubin 0.2 Lymphocytes # 2.3 Lymphocytes % 38.2 Magnesium Level 2.4 # Mean Corpuscular Hemoglobin 30.5 Mean Corpuscular Hemoglobin Concent 30.5 L Mean Corpuscular Volume 100.0 Mean Platelet Volume 9.8 Monocytes # 0.6 Monocytes % 10.0 Neutrophils # 2.7 Neutrophils % 45.4 Nucleated Red Blood Cells # 0.0 Nucleated Red Blood Cells % 0.0 Phosphorus Level 2.5 Platelet Count 219 Potassium Level 3.8 Red Blood Count 2.95 L Red Cell Distribution Width 17.9 H Sodium Level 140 Total Bilirubin 0.2 Total Protein 5.3 L White Blood Count 5.9 Medications Medications Current Medications Aspirin (Halfprin) 81 mg DAILY PO Last administered on 08/19/16 10:32; Admin Dose 81 MG; Start 08/12/16 at 09:00 Clopidogrel Bisulfate (plaVIX) 75 mg DAILY PO Last administered on 08/19/16 10: 31; Admin Dose 75 MG; Start 08/12/16 at 09:00 Ferrous Sulfate (Ferrous Sulfate (Ec)) 325 mg BID PO Last administered on 10:32; Admin Dose 325 MG; Start 08/11/16 at 21:00 Finasteride (Proscar) 5 mg DAILY PO Last administered on 08/19/16 10:23; Admin Dose 5 MG; Start 08/12/16 at 09:00 Fluticasone Propionate (Flonase 0.05% Nasal) 1 spray BID NASAL Last administered on 08/19/16 10:33; Admin Dose 1 SPRAY; Start 08/11/16 at 21:00 Gabapentin (Neurontin) 300 mg TID PO Last administered on 08/19/16 10:31; Admin Dose 300 MG; Start 08/11/16 at 21:00 Guaifenesin/ Dextromethorphan (Robitussin Dm Liquid Cup) 10 ml Q4H PRN PO COUGH Last administered on 08/16/16 16:30; Admin Dose 10 ML; Start 08/11/16 at 17:00 Lactobacillus Acidoph/Bulgaricus (Floranex) 1 tab TID PO Last administered on 10:31; Admin Dose 1 TAB; Start 08/11/16 at 21:00 Montelukast Sodium (Singulair) 10 mg HS PO Last administered on 08/18/16 20:14 ; Admin Dose 10 MG; Start 08/11/16 at 21:00 Multivitamins Therapeutic (Theragran) 1 tab DAILY PO Last administered on 10:31; Admin Dose 1 TAB; Start 08/12/16 at 09:00 Oxycodone/ Acetaminophen (Endocet (10/ 325)) 1 tab Q6 PRN PO PAIN Last administered on 08/15/16 19:04; Admin Dose 1 TAB; Start 08/11/16 at 17:00 Pantoprazole (Protonix Tab) 40 mg DAILY PO Last administered on 08/19/16 10:31 ; Admin Dose 40 MG; Start 08/12/16 at 09:00 Salmeterol Xinafoate/ Fluticasone (Advair 500/50 Diskus) 1 inh BID INH Last administered on 08/19/16 10:32; Admin Dose 1 INH; Start 08/11/16 at 21:00 Tamsulosin HCl (Flomax) 0.4 mg HS PO Last administered on 08/18/16 20:13; Admin Dose 0.4 MG; Start 08/11/16 at 21:00 Tiotropium [place] (Spiriva) 1 inh DAILY INH Last administered on 08/19/16 10: 31; Admin Dose 1 INH; Start 08/12/16 at 09:00 Guaifenesin/ Dextromethorphan (Mucinex Dm) 1 tab BID PO Last administered on 10:32; Admin Dose 1 TAB; Start 08/12/16 at 09:00 Fish Oil (Fish Oil) 1,000 mg DAILY PO Last administered on 08/19/16 10:31; Admin Dose 1,000 MG; Start 08/12/16 at 09:00 Atorvastatin Calcium (Lipitor) 20 mg DAILY@21 PO Last administered on 08/18/16 20:12; Admin Dose 20 MG; Start 08/11/16 at 21:58 Ondansetron HCl (Zofran Inj) 4 mg Q6H PRN IV NAUSEA AND/OR VOMITING Last administered on 08/15/16 06:12; Admin Dose 4 MG; Start 08/11/16 at 17:00 Nitroglycerin (Nitroglycerin (Sl Tab) 0.4 Mg) 1 tab Q5M PRN SL CHEST PAIN; Start 08/11/16 at 17:00 Acetaminophen (Tylenol Tab) 650 mg Q6H PRN PO PAIN LEVEL 1-3 OR FEVER Last administered on 08/18/16 06:08; Admin Dose 650 MG; Start 08/11/16 at 17:00 Morphine Sulfate (morphine) 2 mg Q4H PRN IV PAIN LEVEL 7-10; Start 08/11/16 at 17:00 Magnesium Hydroxide (Milk Of Mag) 30 ml DAILY PRN PO CONSTIPATION Last administered on 08/18/16 11:07; Admin Dose 30 ML; Start 08/11/16 at 17:00 Bisacodyl 10 mg 10 mg DAILY PRN [place] CONSTIPATION Last administered on 08/18/16 11:07; Admin Dose 10 MG; Start 08/11/16 at 17:00 Piperacillin Sod/ Tazobactam Sod 100 ml @ 200 mls/hr Q8 IVPB Last administered on 08/19/16 05:33; Admin Dose 200 MLS/HR; Start 08/11/16 at 22:00 Vancomycin HCl (Vancocin) 250 ml @ 125 mls/hr Q24H IVPB Last administered on 11:53; Admin Dose 125 MLS/HR; Start 08/12/16 at 11:00 IV Flush (NS 10 ml) 10 ml PRN PRN IV IV PROTOCOL; Start 08/12/16 at 18:30 Silver Sulfadiazine (Thermazene 1% 25 Gm) 1 applic DAILY TOP Last administered on 08/19/16 10:33; Admin Dose 1 APPLIC; Start 08/13/16 at 12:00 Mupirocin (Bactroban) 1 applic BID TOP Last administered on 08/19/16 10:32; Admin Dose 1 APPLIC; Start 08/13/16 at 21:00; Stop 08/27/16 at 20:59 Docusate Sodium (Colace) 100 mg Q12 PO Last administered on 08/19/16 10:31; Admin Dose 100 MG; Start 08/15/16 at 10:30 Amiodarone HCl (Cordarone) 200 mg BID PO Last administered on 08/19/16 10:24; Admin Dose 200 MG; Start 08/18/16 at 21:00 Acetazolamide (Diamox) 250 mg BID IV Last administered on 08/19/16 10:33; Admin Dose 250 MG; Start 08/19/16 at 06:00; Stop 08/19/16 at 21:01 Calos Peralta DO Aug 19, 2016 12:10
[2016-08-19] MEDS ORDERED: BUMETANIDE 1 MG INJ IV ONE (13:30)
[2016-08-19] MEDS: VANCOMYCIN 1 GM in NS 250 ML IVPB SCH (13:32)
[2016-08-19] MEDS ORDERED: BUMETANIDE 3 MG in DEXTROSE 5% 18 ML IV ONE (14:00)
--- NOTE | 2016-08-19 16:53 | PN ---
DATE: 08/19/2016 SUBJECTIVE: The patient remains stable, no new events. Continues nasal cannula oxygen. OBJECTIVE: VITAL SIGNS: Temperature 98, pulse 69, blood pressure 142/60, O2 saturation 96% on 3 liters. NECK: Supple. No JVD or lymphadenopathy. CARDIAC: S1, S2, no added sounds or murmurs. CHEST: Diminished air entry bilaterally. ABDOMEN: Soft, nontender. No guarding or rebound. EXTREMITIES: No cyanosis, clubbing, or edema. NEUROLOGIC: Generalized weakness. LABORATORY LABORATORIES: White count 5.9, hemoglobin 9, platelets of 219, BUN 9, creatinine 0.86. IMPRESSION AND PLAN: 1. Chronic hypercapnic respiratory failure. 2. Chronic hypoxemia. 3. Deconditioning. 4. Recent pneumonia. 5. Paroxysmal atrial fibrillation. 6. Decompensated systolic and diastolic heart failure. 1. The patient to continue on supplemental O2. 2. Continue bronchodilators. 3. Continue cardiac recommendations for rate control. 4. DVT and GI prophylaxis. Consider transfer to longterm facility. Dictated By: SIOMARA VALDES/LATISHA Conf#: [id number] DID#: [id number]
[2016-08-19] MEDS: TAMSULOSIN (SR) 0.4 MG CAP PO SCH (20:28)
[2016-08-19] MEDS: ATORVASTATIN 20 MG TAB PO SCH (20:29)
[2016-08-19] MEDS: MONTELUKAST 10 MG TAB PO SCH (21:37)
[2016-08-20] VITALS (13 sets, daily range): BP systolic 106–133; BP diastolic 6–92; PULSE 60–66; RESP 17–19
[2016-08-20] MEDS: LEVALBUTEROL (NEB) 0.63 MG/3 ML AMP HHN SCH ×6 (00:54→21:40)
[2016-08-20] MEDS: PIPER-TAZO 3.375 GM IV (PMX) 100 ML IVPB SCH ×3 (05:52→22:21)
[2016-08-20] MEDS ORDERED: BUMETANIDE 1 MG TAB PO SCH (06:00)
[2016-08-20 07:40] LABS: ADD SCAN DIFF NO
[2016-08-20 07:51] LABS: BASOPHILS % 0.5 % (0.0-2.0); EOSINOPHILS # 0.4 10^3/ul (0.0-0.5); EOSINOPHILS % 5.3 % (0.0-7.0); HEMATOCRIT 29.4 % (42.0-52.0); HEMOGLOBIN 8.8 g/dl (14.0-18.0); LYMPHOCYTES # 2.6 10^3/ul (0.8-2.9); LYMPHOCYTES % 39.2 % (15.0-51.0); MEAN CORPUSCULAR HEMOGLOBIN 30.3 pg (29.0-33.0); MEAN CORPUSCULAR HGB CONC 29.9 g/dl (32.0-37.0); MEAN CORPUSCULAR VOLUME 101.4 fl (82.0-101.0); MEAN PLATELET VOLUME 10.2 fl (7.4-10.4); MONOCYTE # 0.7 10^3/ul (0.3-0.9); NEUTROPHIL # 2.9 10^3/ul (1.6-7.5); NEUTROPHILS % 43.8 % (39.0-77.0); PLATELET COUNT 214 10^3/UL (140-415); RED CELL DISTRIBUTION WIDTH 17.8 % (11.5-14.5); WHITE BLOOD COUNT 6.6 10^3/ul (4.8-10.8)
[2016-08-20 07:58] LABS: POTASSIUM 3.2 mmol/L (3.5-5.1)
[2016-08-20 08:00] LABS: CREATININE 1.05 mg/dl (0.61-1.24)
[2016-08-20 08:01] LABS: CALCIUM 8.2 mg/dl (8.4-10.2)
[2016-08-20 08:02] LABS: PHOSPHORUS 3.8 mg/dl (2.5-4.9)
[2016-08-20] MEDS: PANTOPRAZOLE (EC) 40 MG TAB PO SCH (09:23)
[2016-08-20] MEDS: GABAPENTIN 300 MG CAP PO SCH ×3 (09:23→22:07)
[2016-08-20] MEDS: MULTIVITAMINS THERAPEUTIC TAB PO SCH (09:23)
[2016-08-20] MEDS: DOCUSATE SODIUM 100 MG CAP PO SCH ×2 (09:23→22:09)
[2016-08-20] MEDS: ASPIRIN (EC) 81 MG TAB PO SCH (09:23)
[2016-08-20] MEDS: AMIODARONE 200 MG TAB PO SCH ×2 (09:24→22:09)
[2016-08-20] MEDS: FERROUS SULFATE (EC) 325 MG TAB PO SCH ×2 (09:24→22:09)
[2016-08-20] MEDS: CLOPIDOGREL 75 MG TAB PO SCH (09:24)
[2016-08-20] MEDS: FISH OIL 1,000 MG CAP PO SCH (09:24)
[2016-08-20] MEDS: LACTOBACILLUS CHEW TAB PO SCH ×3 (09:24→22:04)
[2016-08-20] MEDS: FINASTERIDE 5 MG TAB PO SCH (09:24)
[2016-08-20] MEDS: SALMETEROL/FLUTICASONE 500/50 INHA INH SCH ×2 (09:25→22:20)
[2016-08-20] MEDS: MUPIROCIN 2% 22 GM OINT TOP SCH ×2 (09:25→22:21)
[2016-08-20] MEDS: GUAIFENESIN/DM (SR) TAB PO SCH ×2 (09:25→22:06)
[2016-08-20] MEDS: TIOTROPIUM 18 MCG CAPSULE INHA DEV INH SCH (09:25)
[2016-08-20] MEDS: SILVER SULFADIAZINE 1% 25 GM CR TOP SCH (09:26)
[2016-08-20] MEDS: FLUTICASONE 0.05% 16 GM NAS SPRAY NASAL SCH ×2 (09:26→22:21)
[2016-08-20] MEDS ORDERED: POTASSIUM CHLORIDE (SR) 20 MEQ TAB PO STA (09:48)
--- NOTE | 2016-08-20 09:49 | RADRPT ---
PROCEDURE: XR Chest 1 view. CLINICAL INDICATION: Shortness of breath, congestive heart failure TECHNIQUE: AP views of the chest were obtained. COMPARISON: August 17, 2016 FINDINGS: The heart is large. Calcified atherosclerosis is noted in the aorta. Left-sided dual chamber, biven tricular pacemaker/defibrillator has its leads over the heart and appears stable. Central pulmonary vascular congestion and interstitial prominence in both lungs is unchanged. Patchy bilateral perih ilar and lower lung infiltrates combined small pleural effusions are stable. Right-sided PICC line is unchanged. The osseous structures are osteopenic, but appear grossly intact. Degenerative harris es are seen in the shoulders. Kyphoplasty cement is seen within a mid thoracic spine vertebral body. IMPRESSION: Cardiomegaly with calcified atherosclerosis in the aorta. Stable central pulmonary vascular congestion and interstitial prominence in both lungs. Stable patchy bilateral perihilar and lower lung infiltrates combined with small pleural effusions. RPTAT: AA .Bora Hendricks MD, MD Date Time Electronically viewed and signed by .Bora Hendricks MD, on 08/20/2016 09:48 .P/
--- NOTE | 2016-08-20 11:38 | PN ---
DATE: 08/20/2016 SUBJECTIVE: The patient remains clinically stable, still has some shortness of breath on exertion. PHYSICAL EXAMINATION:. VITAL SIGNS: Temperature 97, pulse 64, blood pressure 129/83, O2 saturation ____% on 3 liters. NECK: Supple. No JVD or lymphadenopathy. CARDIAC: S1, S2, no added sounds or murmurs. CHEST: Diminished air entry bilaterally. ABDOMEN: Soft, nontender. No guarding or rebound. EXTREMITIES: No cyanosis, clubbing or edema. NEUROLOGIC: Generalized weakness. LABORATORY DATA: White count 6.6, hemoglobin 8.8, platelets of 214, bicarbonate was 41. IMPRESSION AND PLAN: 1. Acute on chronic hypercapnic respiratory failure, now with stable baseline hypercapnia. 2. History of chronic obstructive pulmonary disease. 3. Resolving pneumonia. 4. Cardiomyopathy with decreased ejection fraction. 5. History of heart block with pacemaker. The patient will require: 1. Continue Diamox. 2. Continue supplemental O2. 3. Consider noninvasive nocturnal positive pressure ventilation. 4. Probable obstructive sleep apnea and hypercapnia. 5. Consider discharge to half-way facility. Dictated By: SIOMARA VALDES/LATISHA Conf#: [id number] DID#: [id number]
--- NOTE | 2016-08-20 13:05 | PN ---
Date/Time of Note Date/Time of Note DATE: 08/20/16 TIME: 12:38 Assessment/Plan VTE Prophylaxis VTE Prophylaxis Intervention: SCD's Lines/Catheters IV Catheter Type (from Nrs): PICC Line Central line still needed: Yes (for IV abx ) Urinary Cath still in place: Yes Reason Cath still needed: urinary retention (chronic ) Assessment/Plan Assessment/Plan 81-year-old male with: 1. CHF exacerbation and volume overload, resolving, OFF diamox now and on po Bumex with good diuresis On Amio for Afib/flutter. 100% V paced in 60's and now Euvolemic to dry 2. Coronary artery disease with ischemic cardiomyopathy, status post transcatheter aortic valve replacement, status post biventricular pacer placement. Elevated troponin, trending down and Cardiology following, latest EF 45 to 50% Continue current cardiac medications including Aspirin and Plavix. On Amiodarone with atrial fibrillation/atrial flutter, V paced currently. Monitoring volume status closely, on diuresis. 3. Resolved Acute respiratory failure with known chronic hypoxemia, chronic obstructive pulmonary disease. Back on 2L to 3L NC which is his outpatient chronic O2 requirement Continue Bumex for diuresis, will see if need to adjust down to daily dosing. Continue nebulizer treatment, Advair and Spiriva at this time. Patient has been declining CPAP or BiPAP at night 4. Bilateral lower extremity erythema concerning for cellulitis given his presentation. Keeps improving Continue vancomycin and Zosyn x 7 more days. 5. Chronic kidney disease. Renal function stable. Repleting K today today. On Bumex, may need to dose daily. Discussed with pulmonary, regarding metabolic alkalosis which may be related to compensation for respiratory acidosis, but patient declining BiPAP or CPAP at night. 6. 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 UA positive and Urine culture with Pseudomonas sensitive to Zosyn to continue x 7 more days. Arteaga catheter changed on this admission already. 7. Acute on chronic Anemia of chronic disease: s/p 2 units pRBC. Monitor Hb has been stable for he past few days. No signs of acute bleeding. 8. Hypertension. Currently normotensive, all BP medications held. BP stable on diuresis. 9. Hypothyroidism. Continue current meds. 10. Temporal arteritis, stable. Prophylaxis: SCDs for DVT prophylaxis and Protonix for GI prophylaxis. DISPOSITION: Stable on Telemetry, A flutter controlled and volume status much improved, back on 2L to 3L NC. On amiodarone, IV antibiotics x 7 more days, diuresis. Cardiology and Pulmonary following. SNF discharge today if Ok per Cardiology. Subjective 24 Hr Interval Summary Free Text/Dictation Patient doing better today and feels stronger No complaints today, will further adjust diuretics for d/c purposes Continue PT and patient to keep PICC line and Arteaga catheter in on discharge to [facility] Exam/Review of Systems Vital Signs Vitals Vital Signs Date Time Temp Pulse Resp B/P Pulse Ox O2 Delivery O2 Flow Rate FiO2 08/20/16 09:45 3.0 08/20/16 09:45 64 20 95 Nasal Cannula 08/20/16 07:49 97.4 129/83 08/17/16 08:53 28 Intake and Output 08/19/16 08/19/16 08/20/16 15:00 23:00 07:00 Intake Total 550 ml Output Total 850 ml 1700 ml Balance -300 ml -1700 ml Exam Constitutional: alert, frail (chronic ), oriented, well developed Respiratory: diminished breath sounds (bases but mostly clear on auscultation today ), normal air movement Cardiovascular: irregular rhythm (V paced ), nl pulses Gastrointestinal: non-tender, soft Musculoskeletal: nl extremities to inspection Extremities: normal pulses, other (no edema, clubbing or cyanosis ) 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: [employer] II-XII intact, nl mental status, nl speech, other ( generalised weakness improving ) Results Result Diagram: 08/20/16 0635 08/20/16 0635 Results 24 hrs Laboratory Tests Test 08/20/16 06:35 Anion Gap 9 Basophils # 0.0 Basophils % 0.5 Blood Urea Nitrogen 11 Calcium Level 8.2 L Carbon Dioxide Level 41 *H Chloride Level 93 L Creatinine 1.05 Eosinophils # 0.4 Eosinophils % 5.3 Glucose Level 73 Hematocrit 29.4 L Hemoglobin 8.8 L Lymphocytes # 2.6 Lymphocytes % 39.2 Magnesium Level 2.0 Mean Corpuscular Hemoglobin 30.3 Mean Corpuscular Hemoglobin Concent 29.9 L Mean Corpuscular Volume 101.4 H Mean Platelet Volume 10.2 Monocytes # 0.7 Monocytes % 10.0 Neutrophils # 2.9 Neutrophils % 43.8 Nucleated Red Blood Cells # 0.0 Nucleated Red Blood Cells % 0.0 Phosphorus Level 3.8 Platelet Count 214 Potassium Level 3.2 L Red Blood Count 2.90 L Red Cell Distribution Width 17.8 H Sodium Level 140 White Blood Count 6.6 Medications Medications Current Medications Aspirin (Halfprin) 81 mg DAILY PO Last administered on 08/20/16 09:23; Admin Dose 81 MG; Start 08/12/16 at 09:00 Clopidogrel Bisulfate (plaVIX) 75 mg DAILY PO Last administered on 08/20/16 09: 24; Admin Dose 75 MG; Start 08/12/16 at 09:00 Ferrous Sulfate (Ferrous Sulfate (Ec)) 325 mg BID PO Last administered on 09:24; Admin Dose 325 MG; Start 08/11/16 at 21:00 Finasteride (Proscar) 5 mg DAILY PO Last administered on 08/20/16 09:24; Admin Dose 5 MG; Start 08/12/16 at 09:00 Fluticasone Propionate (Flonase 0.05% Nasal) 1 spray BID NASAL Last administered on 08/20/16 09:26; Admin Dose 1 SPRAY; Start 08/11/16 at 21:00 Gabapentin (Neurontin) 300 mg TID PO Last administered on 08/20/16 09:23; Admin Dose 300 MG; Start 08/11/16 at 21:00 Guaifenesin/ Dextromethorphan (Robitussin Dm Liquid Cup) 10 ml Q4H PRN PO COUGH Last administered on 08/16/16 16:30; Admin Dose 10 ML; Start 08/11/16 at 17:00 Lactobacillus Acidoph/Bulgaricus (Floranex) 1 tab TID PO Last administered on 09:24; Admin Dose 1 TAB; Start 08/11/16 at 21:00 Montelukast Sodium (Singulair) 10 mg HS PO Last administered on 08/19/16 21:37 ; Admin Dose 10 MG; Start 08/11/16 at 21:00 Multivitamins Therapeutic (Theragran) 1 tab DAILY PO Last administered on 09:23; Admin Dose 1 TAB; Start 08/12/16 at 09:00 Oxycodone/ Acetaminophen (Endocet (10/ 325)) 1 tab Q6 PRN PO PAIN Last administered on 08/15/16 19:04; Admin Dose 1 TAB; Start 08/11/16 at 17:00 Pantoprazole (Protonix Tab) 40 mg DAILY PO Last administered on 08/20/16 09:23 ; Admin Dose 40 MG; Start 08/12/16 at 09:00 Salmeterol Xinafoate/ Fluticasone (Advair 500/50 Diskus) 1 inh BID INH Last administered on 08/20/16 09:25; Admin Dose 1 INH; Start 08/11/16 at 21:00 Tamsulosin HCl (Flomax) 0.4 mg HS PO Last administered on 08/19/16 20:28; Admin Dose 0.4 MG; Start 08/11/16 at 21:00 Tiotropium [place] (Spiriva) 1 inh DAILY INH Last administered on 08/20/16 09: 25; Admin Dose 1 INH; Start 08/12/16 at 09:00 Guaifenesin/ Dextromethorphan (Mucinex Dm) 1 tab BID PO Last administered on 09:25; Admin Dose 1 TAB; Start 08/12/16 at 09:00 Fish Oil (Fish Oil) 1,000 mg DAILY PO Last administered on 08/20/16 09:24; Admin Dose 1,000 MG; Start 08/12/16 at 09:00 Atorvastatin Calcium (Lipitor) 20 mg DAILY@21 PO Last administered on 08/19/16 20:29; Admin Dose 20 MG; Start 08/11/16 at 21:58 Ondansetron HCl (Zofran Inj) 4 mg Q6H PRN IV NAUSEA AND/OR VOMITING Last administered on 08/15/16 06:12; Admin Dose 4 MG; Start 08/11/16 at 17:00 Nitroglycerin (Nitroglycerin (Sl Tab) 0.4 Mg) 1 tab Q5M PRN SL CHEST PAIN; Start 08/11/16 at 17:00 Acetaminophen (Tylenol Tab) 650 mg Q6H PRN PO PAIN LEVEL 1-3 OR FEVER Last administered on 08/18/16 06:08; Admin Dose 650 MG; Start 08/11/16 at 17:00 Morphine Sulfate (morphine) 2 mg Q4H PRN IV PAIN LEVEL 7-10; Start 08/11/16 at 17:00 Magnesium Hydroxide (Milk Of Mag) 30 ml DAILY PRN PO CONSTIPATION Last administered on 08/18/16 11:07; Admin Dose 30 ML; Start 08/11/16 at 17:00 Bisacodyl 10 mg 10 mg DAILY PRN [place] CONSTIPATION Last administered on 08/18/16 11:07; Admin Dose 10 MG; Start 08/11/16 at 17:00 Piperacillin Sod/ Tazobactam Sod (Zosyn 3.375gm/ 100 ml (Pmx)) 100 ml @ 200 mls /hr Q8 IVPB Last administered on 08/20/16 05:52; Admin Dose 200 MLS/HR; Start 08/11/16 at 22:00 IV Flush (NS 10 ml) 10 ml PRN PRN IV IV PROTOCOL; Start 08/12/16 at 18:30 Silver Sulfadiazine (Thermazene 1% 25 Gm) 1 applic DAILY TOP Last administered on 08/20/16 09:26; Admin Dose 1 APPLIC; Start 08/13/16 at 12:00 Mupirocin (Bactroban) 1 applic BID TOP Last administered on 08/20/16 09:25; Admin Dose 1 APPLIC; Start 08/13/16 at 21:00; Stop 08/27/16 at 20:59 Docusate Sodium (Colace) 100 mg Q12 PO Last administered on 08/20/16 09:23; Admin Dose 100 MG; Start 08/15/16 at 10:30 Amiodarone HCl 200 mg 200 mg BID PO Last administered on 08/20/16 09:24; Admin Dose 200 MG; Start 08/18/16 at 21:00 Vancomycin HCl/ Sodium Chloride (Vancocin/NS) 150 ml @ 75 mls/hr Q24H IVPB ; Start 08/20/16 at 14:00 RICHIE SWEET Aug 20, 2016 12:57
--- NOTE | 2016-08-20 13:08 | PDOCDIS ---
Discharge Instructions CONDITION Patient Condition: Stable HOME CARE INSTRUCTIONS: Special Diet: Cardiac ACTIVITY: Activity Restrictions: Slowly Increase Activity FOLLOW UP/APPOINTMENTS Appointments Follow up with Cardiology within 2 weeks Follow up with Urology outpatient as needed re royer simmons so far RICHIE SWEET Aug 20, 2016 13:08
[2016-08-20] MEDS ORDERED: POTASSIUM CHLORIDE (SR) 10 MEQ TAB PO ONE (13:30)
[2016-08-20 13:42] LABS: AADO2 Arterial 46.9 mmHg (7.0-24.0); Allen Test ACCEPTAB; Arterial Base Excess 11.2 mmol/L (-3.0-3); Arterial COHb 0.3 % (0.0-3.0); Arterial HCO3 38.4 mmol/L (22.0-26.0); Arterial MetHb 0.4 % (0.0-1.5); Arterial Total Hemglobin 10.4 g/dl (12.0-18.0); MODE NASAL CANNULA
[2016-08-20] MEDS: VANCOMYCIN 750 MG in SOD CHLORIDE 0.9% 150 ML IVPB SCH (14:31)
--- NOTE | 2016-08-20 14:55 | CONS ---
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 Chronic obstructive pulmonary disease on home oxygen. Acute blood loss anemia status post blood transfusion -Vision with improved lung examination, continue diuretics as blood pressure and renal function permits. Supplement potassium to maintain above 4.0 and magnesium above 2.0. Continue dual antiplatelet therapy secondary to recent PCI as well as statin therapy. Taper down amiodarone. Restart beta-mayela as blood pressure and heart rate permits. Consultation Date/Type/Reason Admit Date/Time Aug 11, 2016 at 16:21 Type of Consultation: cv 24 HR Interval Summary Free Text/Dictation Denies shortness of breath, chest pain. Complaining of fatigue Exam/Review of Systems Vital Signs Vitals Vital Signs Date Time Temp Pulse Resp B/P Pulse Ox O2 Delivery O2 Flow Rate FiO2 08/20/16 13:40 3.0 08/20/16 13:40 65 20 94 Nasal Cannula 08/20/16 12:40 97.0 127/92 08/17/16 08:53 28 Intake and Output 08/19/16 08/19/16 08/20/16 15:00 23:00 07:00 Intake Total 550 ml Output Total 850 ml 1700 ml Balance -300 ml -1700 ml Exam No apparent distress Constitutional: alert, frail, oriented Head: normocephalic Neck: supple Respiratory: other (Coarse breath sounds bilaterally, scattered rhonchi) Cardiovascular: other (S1-S2 heard), regular rate and rhythm Gastrointestinal: bowel sounds, non-tender, other (No guarding), soft Extremities: edema (Trace), other (Multiple areas of ecchymosis) Results Result Diagram: 08/20/16 0635 08/20/16 0635 Results 24 hrs Laboratory Tests Test 08/20/16 06:35 08/20/16 13:19 08/20/16 13:21 Anion Gap 9 Basophils # 0.0 Basophils % 0.5 Blood Urea Nitrogen 11 Calcium Level 8.2 L Carbon Dioxide Level 41 *H Chloride Level 93 L Creatinine 1.05 Eosinophils # 0.4 Eosinophils % 5.3 Glucose Level 73 Hematocrit 29.4 L Hemoglobin 8.8 L Lymphocytes # 2.6 Lymphocytes % 39.2 Magnesium Level 2.0 Mean Corpuscular Hemoglobin 30.3 Mean Corpuscular Hemoglobin Concent 29.9 L Mean Corpuscular Volume 101.4 H Mean Platelet Volume 10.2 Monocytes # 0.7 Monocytes % 10.0 Neutrophils # 2.9 Neutrophils % 43.8 Nucleated Red Blood Cells # 0.0 Nucleated Red Blood Cells % 0.0 Phosphorus Level 3.8 Platelet Count 214 Potassium Level 3.2 L Red Blood Count 2.90 L Red Cell Distribution Width 17.8 H Sodium Level 140 White Blood Count 6.6 Bedside Glucose 84 Arterial Blood HCO3 38.4 H Arterial Blood Base Excess 11.2 H Arterial Blood Oxygen Saturation 92.6 L [place]onte Test ACCEPTAB Arterial Blood Gas Puncture Site Right Radial Arterial Blood Carboxyhemoglobin 0.3 Arterial Blood Date Drawn 08/20/2016 1:30:50 PM Arterial Blood Methemoglobin 0.4 Arterial Blood pCO2 (Temp correct) 66.5 H Arterial Blood pH (Temp corrected) 7.379 Arterial Blood pO2 (Temp corrected) 67.0 L Blood Gas A-a O2 Differential 46.9 H Blood Gas Modality NASAL CANNULA Blood Gas Notified Time 08/20/2016 1:42:31 PM Blood Gas Notified Whom JLD Blood Gas Specimen Source Blood arterial Blood Gas Temperature 37.0 FiO2 27.0 Oxyhemoglobin Percent 92.0 L Total Hemoglobin 10.4 L Medications Medications Current Medications Aspirin (Halfprin) 81 mg DAILY PO Last administered on 08/20/16 09:23; Admin Dose 81 MG; Start 08/12/16 at 09:00 Clopidogrel Bisulfate (plaVIX) 75 mg DAILY PO Last administered on 08/20/16 09: 24; Admin Dose 75 MG; Start 08/12/16 at 09:00 Ferrous Sulfate (Ferrous Sulfate (Ec)) 325 mg BID PO Last administered on 09:24; Admin Dose 325 MG; Start 08/11/16 at 21:00 Finasteride (Proscar) 5 mg DAILY PO Last administered on 08/20/16 09:24; Admin Dose 5 MG; Start 08/12/16 at 09:00 Fluticasone Propionate (Flonase 0.05% Nasal) 1 spray BID NASAL Last administered on 08/20/16 09:26; Admin Dose 1 SPRAY; Start 08/11/16 at 21:00 Gabapentin (Neurontin) 300 mg TID PO Last administered on 08/20/16 14:30; Admin Dose 300 MG; Start 08/11/16 at 21:00 Guaifenesin/ Dextromethorphan (Robitussin Dm Liquid Cup) 10 ml Q4H PRN PO COUGH Last administered on 08/16/16 16:30; Admin Dose 10 ML; Start 08/11/16 at 17:00 Lactobacillus Acidoph/Bulgaricus (Floranex) 1 tab TID PO Last administered on 14:23; Admin Dose 1 TAB; Start 08/11/16 at 21:00 Montelukast Sodium (Singulair) 10 mg HS PO Last administered on 08/19/16 21:37 ; Admin Dose 10 MG; Start 08/11/16 at 21:00 Multivitamins Therapeutic (Theragran) 1 tab DAILY PO Last administered on 09:23; Admin Dose 1 TAB; Start 08/12/16 at 09:00 Oxycodone/ Acetaminophen (Endocet (10/ 325)) 1 tab Q6 PRN PO PAIN Last administered on 08/15/16 19:04; Admin Dose 1 TAB; Start 08/11/16 at 17:00 Pantoprazole (Protonix Tab) 40 mg DAILY PO Last administered on 08/20/16 09:23 ; Admin Dose 40 MG; Start 08/12/16 at 09:00 Salmeterol Xinafoate/ Fluticasone (Advair 500/50 Diskus) 1 inh BID INH Last administered on 08/20/16 09:25; Admin Dose 1 INH; Start 08/11/16 at 21:00 Tamsulosin HCl (Flomax) 0.4 mg HS PO Last administered on 08/19/16 20:28; Admin Dose 0.4 MG; Start 08/11/16 at 21:00 Tiotropium [place] (Spiriva) 1 inh DAILY INH Last administered on 08/20/16 09: 25; Admin Dose 1 INH; Start 08/12/16 at 09:00 Guaifenesin/ Dextromethorphan (Mucinex Dm) 1 tab BID PO Last administered on 09:25; Admin Dose 1 TAB; Start 08/12/16 at 09:00 Fish Oil (Fish Oil) 1,000 mg DAILY PO Last administered on 08/20/16 09:24; Admin Dose 1,000 MG; Start 08/12/16 at 09:00 Atorvastatin Calcium (Lipitor) 20 mg DAILY@21 PO Last administered on 08/19/16 20:29; Admin Dose 20 MG; Start 08/11/16 at 21:58 Ondansetron HCl (Zofran Inj) 4 mg Q6H PRN IV NAUSEA AND/OR VOMITING Last administered on 08/15/16 06:12; Admin Dose 4 MG; Start 08/11/16 at 17:00 Nitroglycerin (Nitroglycerin (Sl Tab) 0.4 Mg) 1 tab Q5M PRN SL CHEST PAIN; Start 08/11/16 at 17:00 Acetaminophen (Tylenol Tab) 650 mg Q6H PRN PO PAIN LEVEL 1-3 OR FEVER Last administered on 08/18/16 06:08; Admin Dose 650 MG; Start 08/11/16 at 17:00 Morphine Sulfate (morphine) 2 mg Q4H PRN IV PAIN LEVEL 7-10; Start 08/11/16 at 17:00 Magnesium Hydroxide (Milk Of Mag) 30 ml DAILY PRN PO CONSTIPATION Last administered on 08/18/16 11:07; Admin Dose 30 ML; Start 08/11/16 at 17:00 Bisacodyl 10 mg 10 mg DAILY PRN [place] CONSTIPATION Last administered on 08/18/16 11:07; Admin Dose 10 MG; Start 08/11/16 at 17:00 Piperacillin Sod/ Tazobactam Sod (Zosyn 3.375gm/ 100 ml (Pmx)) 100 ml @ 200 mls /hr Q8 IVPB Last administered on 08/20/16 14:23; Admin Dose 200 MLS/HR; Start 08/11/16 at 22:00 IV Flush (NS 10 ml) 10 ml PRN PRN IV IV PROTOCOL; Start 08/12/16 at 18:30 Silver Sulfadiazine (Thermazene 1% 25 Gm) 1 applic DAILY TOP Last administered on 08/20/16 09:26; Admin Dose 1 APPLIC; Start 08/13/16 at 12:00 Mupirocin (Bactroban) 1 applic BID TOP Last administered on 08/20/16 09:25; Admin Dose 1 APPLIC; Start 08/13/16 at 21:00; Stop 08/27/16 at 20:59 Docusate Sodium (Colace) 100 mg Q12 PO Last administered on 08/20/16 09:23; Admin Dose 100 MG; Start 08/15/16 at 10:30 Amiodarone HCl 200 mg 200 mg BID PO Last administered on 08/20/16 09:24; Admin Dose 200 MG; Start 08/18/16 at 21:00 Vancomycin HCl/ Sodium Chloride (Vancocin/NS) 150 ml @ 75 mls/hr Q24H IVPB Last administered on 08/20/16 14:31; Admin Dose 75 MLS/HR; Start 08/20/16 at 14: 00 Calos Peralta DO Aug 20, 2016 14:55
[2016-08-20] MEDS: ONDANSETRON 4 MG INJ IV PRN (15:59)
[2016-08-20 17:42] LABS: CK-MB 0.9 ng/ml (0.0-2.4); TROPONIN-I 0.039 ng/ml (0.00-0.12)
[2016-08-20] MEDS: METOPROLOL 25 MG TAB PO SCH (21:00)
[2016-08-20] MEDS: ATORVASTATIN 20 MG TAB PO SCH (22:06)
[2016-08-20] MEDS: MONTELUKAST 10 MG TAB PO SCH (22:07)
[2016-08-20] MEDS: TAMSULOSIN (SR) 0.4 MG CAP PO SCH (22:09)
[2016-08-21] VITALS (15 sets, daily range): BP systolic 108–132; BP diastolic 52–85; PULSE 60–80; RESP 16–19
[2016-08-21] MEDS: LEVALBUTEROL (NEB) 0.63 MG/3 ML AMP HHN SCH ×6 (01:19→21:00)
[2016-08-21] MEDS: PIPER-TAZO 3.375 GM IV (PMX) 100 ML IVPB SCH ×3 (06:50→21:43)
[2016-08-21 08:30] LABS: POTASSIUM 3.6 mmol/L (3.5-5.1)
[2016-08-21 08:33] LABS: CREATININE 1.09 mg/dl (0.61-1.24)
[2016-08-21 08:34] LABS: CALCIUM 8.1 mg/dl (8.4-10.2)
[2016-08-21] MEDS ORDERED: BUMETANIDE 1 MG TAB PO SCH (09:00)
[2016-08-21] MEDS: PANTOPRAZOLE (EC) 40 MG TAB PO SCH (10:13)
[2016-08-21] MEDS: FERROUS SULFATE (EC) 325 MG TAB PO SCH ×2 (10:13→21:43)
[2016-08-21] MEDS: LACTOBACILLUS CHEW TAB PO SCH ×3 (10:13→21:43)
[2016-08-21] MEDS: TIOTROPIUM 18 MCG CAPSULE INHA DEV INH SCH (10:13)
[2016-08-21] MEDS: GABAPENTIN 300 MG CAP PO SCH ×3 (10:13→21:43)
[2016-08-21] MEDS: FINASTERIDE 5 MG TAB PO SCH (10:13)
[2016-08-21] MEDS: MULTIVITAMINS THERAPEUTIC TAB PO SCH (10:13)
[2016-08-21] MEDS: ASPIRIN (EC) 81 MG TAB PO SCH (10:13)
[2016-08-21] MEDS: GUAIFENESIN/DM (SR) TAB PO SCH ×2 (10:13→21:43)
[2016-08-21] MEDS: FISH OIL 1,000 MG CAP PO SCH (10:14)
[2016-08-21] MEDS: CLOPIDOGREL 75 MG TAB PO SCH (10:14)
[2016-08-21] MEDS: AMIODARONE 200 MG TAB PO SCH (10:14)
[2016-08-21] MEDS: DOCUSATE SODIUM 100 MG CAP PO SCH ×2 (10:14→21:43)
[2016-08-21] MEDS: METOPROLOL 25 MG TAB PO SCH ×2 (10:15→21:44)
[2016-08-21] MEDS: FLUTICASONE 0.05% 16 GM NAS SPRAY NASAL SCH ×2 (10:31→21:45)
[2016-08-21] MEDS: MUPIROCIN 2% 22 GM OINT TOP SCH ×2 (10:31→21:45)
[2016-08-21] MEDS: SILVER SULFADIAZINE 1% 25 GM CR TOP SCH (10:31)
[2016-08-21] MEDS: SALMETEROL/FLUTICASONE 500/50 INHA INH SCH ×2 (10:32→21:45)
[2016-08-21] MEDS ORDERED: POTASSIUM CHLORIDE 20 MEQ POWDER FOR ORAL SOLN PO ONE (12:30)
--- NOTE | 2016-08-21 12:31 | CONS ---
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 Chronic obstructive pulmonary disease on home oxygen. Acute blood loss anemia status post blood transfusion -Patient with improved respiratory status as well as edema. Would continue diuretics and supplement potassium to maintain above 4.0 and magnesium above 2.0. Patient tolerating beta-mayela, as blood pressure permits, would start low-dose CLARIBEL inhibitor. Continue amiodarone daily. Given patient with recurrent anemia requiring blood transfusions, patient not on anticoagulation secondary to paroxysmal atrial fibrillation/flutter. Consultation Date/Type/Reason Admit Date/Time Aug 11, 2016 at 16:21 Type of Consultation: cv 24 HR Interval Summary Free Text/Dictation Feeling better today, shortness of breath is better, denies palpitations, chest pain or dizziness Exam/Review of Systems Vital Signs Vitals Vital Signs Date Time Temp Pulse Resp B/P Pulse Ox O2 Delivery O2 Flow Rate FiO2 08/21/16 12:23 60 08/21/16 11:00 97.9 19 132/60 97 08/21/16 09:42 Nasal Cannula 3.0 08/17/16 08:53 28 Intake and Output 08/20/16 08/20/16 08/21/16 15:00 23:00 07:00 Intake Total 100 ml 420 ml Output Total 1500 ml Balance 100 ml -1080 ml Exam No apparent distress Constitutional: alert, frail, oriented Head: normocephalic Neck: supple Respiratory: other (Coarse breath sounds bilaterally with scattered rhonchi, no wheezing) Cardiovascular: other (S1-S2 heard), regular rate and rhythm Gastrointestinal: bowel sounds, non-tender, other (No guarding), soft Extremities: edema (Trace), other (Numerous areas of ecchymosis) Results Result Diagram: 08/20/16 0635 08/21/16 0740 Results 24 hrs Laboratory Tests Test 08/20/16 13:19 08/20/16 13:21 08/20/16 16:50 08/21/16 07:40 Bedside Glucose 84 Arterial Blood HCO3 38.4 H Arterial Blood Base Excess 11.2 H Arterial Blood Oxygen Saturation 92.6 L [place] Test ACCEPTAB Arterial Blood Gas Puncture Site Right Radial Arterial Blood Carboxyhemoglobin 0.3 Arterial Blood Date Drawn 08/20/2016 1:30:50 PM Arterial Blood Methemoglobin 0.4 Arterial Blood pCO2 (Temp correct) 66.5 H Arterial Blood pH (Temp corrected) 7.379 Arterial Blood pO2 (Temp corrected) 67.0 L Blood Gas A-a O2 Differential 46.9 H Blood Gas Modality NASAL CANNULA Blood Gas Notified Time 08/20/2016 1:42:31 PM Blood Gas Notified Whom JLD Blood Gas Specimen Source Blood arterial Blood Gas Temperature 37.0 FiO2 27.0 Oxyhemoglobin Percent 92.0 L Total Hemoglobin 10.4 L Creatine Kinase 23 Creatine Kinase Index 3.9 Creatinine Kinase MB (Mass) 0.90 Troponin I 0.039 Anion Gap 10 Blood Urea Nitrogen 12 Calcium Level 8.1 L Carbon Dioxide Level 40 H Chloride Level 94 L Creatinine 1.09 Glucose Level 79 Magnesium Level 1.9 Potassium Level 3.6 Sodium Level 140 Medications Medications Current Medications Aspirin (Halfprin) 81 mg DAILY PO Last administered on 08/21/16 10:13; Admin Dose 81 MG; Start 08/12/16 at 09:00 Clopidogrel Bisulfate (plaVIX) 75 mg DAILY PO Last administered on 08/21/16 10 :14; Admin Dose 75 MG; Start 08/12/16 at 09:00 Ferrous Sulfate (Ferrous Sulfate (Ec)) 325 mg BID PO Last administered on 10:13; Admin Dose 325 MG; Start 08/11/16 at 21:00 Finasteride (Proscar) 5 mg DAILY PO Last administered on 08/21/16 10:13; Admin Dose 5 MG; Start 08/12/16 at 09:00 Fluticasone Propionate (Flonase 0.05% Nasal) 1 spray BID NASAL Last administered on 08/21/16 10:31; Admin Dose 1 SPRAY; Start 08/11/16 at 21:00 Gabapentin (Neurontin) 300 mg TID PO Last administered on 08/21/16 10:13; Admin Dose 300 MG; Start 08/11/16 at 21:00 Guaifenesin/ Dextromethorphan (Robitussin Dm Liquid Cup) 10 ml Q4H PRN PO COUGH Last administered on 08/16/16 16:30; Admin Dose 10 ML; Start 08/11/16 at 17:00 Lactobacillus Acidoph/Bulgaricus (Floranex) 1 tab TID PO Last administered on 10:13; Admin Dose 1 TAB; Start 08/11/16 at 21:00 Montelukast Sodium (Singulair) 10 mg HS PO Last administered on 08/20/16 22:07 ; Admin Dose 10 MG; Start 08/11/16 at 21:00 Multivitamins Therapeutic (Theragran) 1 tab DAILY PO Last administered on 10:13; Admin Dose 1 TAB; Start 08/12/16 at 09:00 Oxycodone/ Acetaminophen (Endocet (10/ 325)) 1 tab Q6 PRN PO PAIN Last administered on 08/15/16 19:04; Admin Dose 1 TAB; Start 08/11/16 at 17:00 Pantoprazole (Protonix Tab) 40 mg DAILY PO Last administered on 08/21/16 10:13 ; Admin Dose 40 MG; Start 08/12/16 at 09:00 Salmeterol Xinafoate/ Fluticasone (Advair 500/50 Diskus) 1 inh BID INH Last administered on 08/21/16 10:32; Admin Dose 1 INH; Start 08/11/16 at 21:00 Tamsulosin HCl (Flomax) 0.4 mg HS PO Last administered on 08/20/16 22:09; Admin Dose 0.4 MG; Start 08/11/16 at 21:00 Tiotropium [place] (Spiriva) 1 inh DAILY INH Last administered on 08/21/16 10: 13; Admin Dose 1 INH; Start 08/12/16 at 09:00 Guaifenesin/ Dextromethorphan (Mucinex Dm) 1 tab BID PO Last administered on 10:13; Admin Dose 1 TAB; Start 08/12/16 at 09:00 Fish Oil (Fish Oil) 1,000 mg DAILY PO Last administered on 08/21/16 10:14; Admin Dose 1,000 MG; Start 08/12/16 at 09:00 Atorvastatin Calcium (Lipitor) 20 mg DAILY@21 PO Last administered on 08/20/16 22:06; Admin Dose 20 MG; Start 08/11/16 at 21:58 Ondansetron HCl (Zofran Inj) 4 mg Q6H PRN IV NAUSEA AND/OR VOMITING Last administered on 08/20/16 15:59; Admin Dose 4 MG; Start 08/11/16 at 17:00 Nitroglycerin (Nitroglycerin (Sl Tab) 0.4 Mg) 1 tab Q5M PRN SL CHEST PAIN; Start 08/11/16 at 17:00 Acetaminophen (Tylenol Tab) 650 mg Q6H PRN PO PAIN LEVEL 1-3 OR FEVER Last administered on 08/18/16 06:08; Admin Dose 650 MG; Start 08/11/16 at 17:00 Morphine Sulfate (morphine) 2 mg Q4H PRN IV PAIN LEVEL 7-10; Start 08/11/16 at 17:00 Magnesium Hydroxide (Milk Of Mag) 30 ml DAILY PRN PO CONSTIPATION Last administered on 08/18/16 11:07; Admin Dose 30 ML; Start 08/11/16 at 17:00 Bisacodyl 10 mg 10 mg DAILY PRN [place] CONSTIPATION Last administered on 08/18/16 11:07; Admin Dose 10 MG; Start 08/11/16 at 17:00 Piperacillin Sod/ Tazobactam Sod (Zosyn 3.375gm/ 100 ml (Pmx)) 100 ml @ 200 mls /hr Q8 IVPB Last administered on 08/21/16 06:50; Admin Dose 200 MLS/HR; Start 08/11/16 at 22:00 IV Flush (NS 10 ml) 10 ml PRN PRN IV IV PROTOCOL; Start 08/12/16 at 18:30 Silver Sulfadiazine (Thermazene 1% 25 Gm) 1 applic DAILY TOP Last administered on 08/21/16 10:31; Admin Dose 1 APPLIC; Start 08/13/16 at 12:00 Mupirocin (Bactroban) 1 applic BID TOP Last administered on 08/21/16 10:31; Admin Dose 1 APPLIC; Start 08/13/16 at 21:00; Stop 08/27/16 at 20:59 Docusate Sodium 100 mg 100 mg Q12 PO Last administered on 08/21/16 10:14; Admin Dose 100 MG; Start 3/4/17 at 10:30 Vancomycin HCl/ Sodium Chloride (Vancocin/NS) 150 ml @ 75 mls/hr Q24H IVPB Last administered on 08/20/16 14:31; Admin Dose 75 MLS/HR; Start 08/20/16 at 14: 00 Amiodarone HCl (Cordarone) 200 mg DAILY PO Last administered on 08/21/16 10:14 ; Admin Dose 200 MG; Start 08/21/16 at 09:00 Metoprolol Tartrate (Lopressor) 12.5 mg BID PO Last administered on 08/21/16 10:15; Admin Dose 12.5 MG; Start 08/20/16 at 21:00 Bumetanide (Bumex) 1 mg DAILY PO Last administered on 08/21/16 10:13; Admin Dose 1 MG; Start 08/21/16 at 09:00 Miscellaneous Information (*Rx Drug Level Order Reminder*) 1 ONCE ONCE XX ; Start 08/21/16 at 13:00; Stop 08/21/16 at 13:01 Calos Peralta DO Aug 21, 2016 12:31
[2016-08-21] MEDS ORDERED: MAGNESIUM SULFATE 1 GM/D5W 100 ML IVPB ONE (13:00)
[2016-08-21] MEDS: LISINOPRIL 5 MG TAB PO SCH (13:03)
[2016-08-21 13:17] LABS: AADO2 Arterial 8.8 mmHg (7.0-24.0); Allen Test ACCEPTAB; Arterial Base Excess 11.4 mmol/L (-3.0-3); Arterial COHb 0.4 % (0.0-3.0); Arterial Fraction of Oxyhgb 96.9 % (93.0-99.0); Arterial HCO3 39.7 mmol/L (22.0-26.0); Arterial MetHb 0.4 % (0.0-1.5); Arterial Total Hemglobin 9.2 g/dl (12.0-18.0); MODE NASAL CANNULA
--- NOTE | 2016-08-21 13:28 | PN ---
Date/Time of Note Date/Time of Note DATE: 08/21/16 TIME: 12:51 Assessment/Plan VTE Prophylaxis VTE Prophylaxis Intervention: SCD's Lines/Catheters IV Catheter Type (from Nrsg): PICC Line Central line still needed: Yes (for IV access ) Urinary Cath still in place: Yes Reason Cath still needed: urinary retention (chronic ) Assessment/Plan Assessment/Plan 81-year-old male with: 1. CHF exacerbation and volume overload, resolving, OFF diamox now and on po Bumex down to daily with good diuresis On Amio for Afib/flutter. 100% V paced in 60's and now Euvolemic to dry 2. Coronary artery disease with ischemic cardiomyopathy, status post transcatheter aortic valve replacement, status post biventricular pacer placement. Elevated troponin, trending down and Cardiology following, latest EF 45 to 50% Continue current cardiac medications including Aspirin and Plavix. On Amiodarone with atrial fibrillation/atrial flutter, V paced currently. Monitoring volume status closely, on diuresis. 3. Resolved Acute respiratory failure with known chronic hypoxemia, chronic obstructive pulmonary disease. Back on 2L NC which is his outpatient chronic O2 requirement Continue Bumex for diuresis for now daily dosing. Continue nebulizer treatment, Advair and Spiriva at this time. CXR today and repeat ABG today per pulmo Patient has been declining CPAP or BiPAP at night 4. Bilateral lower extremity erythema concerning for cellulitis given his presentation. Keeps improving Continue vancomycin and Zosyn x 7 more days at discharge. 5. Chronic kidney disease. Renal function stable. Repleting K today. On Bumex daily dosing for now, increase back to bid if needed. Discussed with pulmonary, regarding metabolic alkalosis which may be related to compensation for respiratory acidosis, but patient declining BiPAP or CPAP at night. 6. 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 UA positive and Urine culture with Pseudomonas sensitive to Zosyn to continue x 7 more days. [place] catheter changed on this admission already. 7. Acute on chronic Anemia of chronic disease: s/p 2 units pRBC. Monitor Hb has been stable for he past few days. No signs of acute bleeding. 8. Hypertension. Currently normotensive, back on Metoprolol and Zestril as of yesterday and BP tolerating so far. 9. Hypothyroidism. Continue current meds. 10. Temporal arteritis, stable. Prophylaxis: SCDs for DVT prophylaxis and Protonix for GI prophylaxis. DISPOSITION: Stable on Telemetry, A flutter controlled and volume status improved, back on 2L NC. Mental status seems a little better today, ABG and CXR pending On amiodarone, IV antibiotics x 7 more days, diuresis. Cardiology and Pulmonary following. SNF discharge within 24 to 48 hrs if stable and financial agreement in place . Subjective 24 Hr Interval Summary Free Text/Dictation Patient with episode of acute mental status change yesterday afternoon, work up OK and ABG stable with still ongoing CO2 retention Patient feels weak and depressed this AM, he "feels like he is dying" SNF placement in the works at patient only has 3 SNF days left at 0$ copay and currently not appropriate for home discharge Repeat ABG pending Exam/Review of Systems Vital Signs Vitals Vital Signs Date Time Temp Pulse Resp B/P Pulse Ox O2 Delivery O2 Flow Rate FiO2 08/21/16 12:23 60 08/21/16 11:00 97.9 19 132/60 97 08/21/16 09:42 Nasal Cannula 3.0 08/17/16 08:53 28 Intake and Output 08/20/16 08/20/16 08/21/16 15:00 23:00 07:00 Intake Total 100 ml 420 ml Output Total 1500 ml Balance 100 ml -1080 ml Exam Constitutional: alert, frail, oriented Psych: depression Respiratory: crackles/rales (lower bases bilaterally ), diminished breath sounds Cardiovascular: nl pulses, regular rate and rhythm Gastrointestinal: non-tender, soft Musculoskeletal: nl extremities to inspection Extremities: normal pulses Skin: ecchymosis (Lower and upper ext bilaterally ) Results Result Diagram: 08/20/16 0635 08/21/16 0740 Results 24 hrs Laboratory Tests Test 08/20/16 13:19 08/20/16 13:21 08/20/16 16:50 08/21/16 07:40 Bedside Glucose 84 Arterial Blood HCO3 38.4 H Arterial Blood Base Excess 11.2 H Arterial Blood Oxygen Saturation 92.6 L [place] Test ACCEPTAB Arterial Blood Gas Puncture Site Right Radial Arterial Blood Carboxyhemoglobin 0.3 Arterial Blood Date Drawn 08/20/2016 1:30:50 PM Arterial Blood Methemoglobin 0.4 Arterial Blood pCO2 (Temp correct) 66.5 H Arterial Blood pH (Temp corrected) 7.379 Arterial Blood pO2 (Temp corrected) 67.0 L Blood Gas A-a O2 Differential 46.9 H Blood Gas Modality NASAL CANNULA Blood Gas Notified Time 08/20/2016 1:42:31 PM Blood Gas Notified Whom JLD Blood Gas Specimen Source Blood arterial Blood Gas Temperature 37.0 FiO2 27.0 Oxyhemoglobin Percent 92.0 L Total Hemoglobin 10.4 L Creatine Kinase 23 Creatine Kinase Index 3.9 Creatinine Kinase MB (Mass) 0.90 Troponin I 0.039 Anion Gap 10 Blood Urea Nitrogen 12 Calcium Level 8.1 L Carbon Dioxide Level 40 H Chloride Level 94 L Creatinine 1.09 Glucose Level 79 Magnesium Level 1.9 Potassium Level 3.6 Sodium Level 140 Medications Medications Current Medications Aspirin (Halfprin) 81 mg DAILY PO Last administered on 08/21/16 10:13; Admin Dose 81 MG; Start 08/12/16 at 09:00 Clopidogrel Bisulfate (plaVIX) 75 mg DAILY PO Last administered on 08/21/16 10 :14; Admin Dose 75 MG; Start 08/12/16 at 09:00 Ferrous Sulfate (Ferrous Sulfate (Ec)) 325 mg BID PO Last administered on 10:13; Admin Dose 325 MG; Start 08/11/16 at 21:00 Finasteride (Proscar) 5 mg DAILY PO Last administered on 08/21/16 10:13; Admin Dose 5 MG; Start 08/12/16 at 09:00 Fluticasone Propionate (Flonase 0.05% Nasal) 1 spray BID NASAL Last administered on 08/21/16 10:31; Admin Dose 1 SPRAY; Start 08/11/16 at 21:00 Gabapentin (Neurontin) 300 mg TID PO Last administered on 08/21/16 10:13; Admin Dose 300 MG; Start 08/11/16 at 21:00 Guaifenesin/ Dextromethorphan (Robitussin Dm Liquid Cup) 10 ml Q4H PRN PO COUGH Last administered on 08/16/16 16:30; Admin Dose 10 ML; Start 08/11/16 at 17:00 Lactobacillus Acidoph/Bulgaricus (Floranex) 1 tab TID PO Last administered on 10:13; Admin Dose 1 TAB; Start 08/11/16 at 21:00 Montelukast Sodium (Singulair) 10 mg HS PO Last administered on 08/20/16 22:07 ; Admin Dose 10 MG; Start 08/11/16 at 21:00 Multivitamins Therapeutic (Theragran) 1 tab DAILY PO Last administered on 10:13; Admin Dose 1 TAB; Start 08/12/16 at 09:00 Oxycodone/ Acetaminophen (Endocet (10/ 325)) 1 tab Q6 PRN PO PAIN Last administered on 08/15/16 19:04; Admin Dose 1 TAB; Start 08/11/16 at 17:00 Pantoprazole (Protonix Tab) 40 mg DAILY PO Last administered on 08/21/16 10:13 ; Admin Dose 40 MG; Start 08/12/16 at 09:00 Salmeterol Xinafoate/ Fluticasone (Advair 500/50 Diskus) 1 inh BID INH Last administered on 08/21/16 10:32; Admin Dose 1 INH; Start 08/11/16 at 21:00 Tamsulosin HCl (Flomax) 0.4 mg HS PO Last administered on 08/20/16 22:09; Admin Dose 0.4 MG; Start 08/11/16 at 21:00 Tiotropium [place] (Spiriva) 1 inh DAILY INH Last administered on 08/21/16 10: 13; Admin Dose 1 INH; Start 08/12/16 at 09:00 Guaifenesin/ Dextromethorphan (Mucinex Dm) 1 tab BID PO Last administered on 10:13; Admin Dose 1 TAB; Start 08/12/16 at 09:00 Fish Oil (Fish Oil) 1,000 mg DAILY PO Last administered on 08/21/16 10:14; Admin Dose 1,000 MG; Start 08/12/16 at 09:00 Atorvastatin Calcium (Lipitor) 20 mg DAILY@21 PO Last administered on 08/20/16 22:06; Admin Dose 20 MG; Start 08/11/16 at 21:58 Ondansetron HCl (Zofran Inj) 4 mg Q6H PRN IV NAUSEA AND/OR VOMITING Last administered on 08/20/16 15:59; Admin Dose 4 MG; Start 08/11/16 at 17:00 Nitroglycerin (Nitroglycerin (Sl Tab) 0.4 Mg) 1 tab Q5M PRN SL CHEST PAIN; Start 08/11/16 at 17:00 Acetaminophen (Tylenol Tab) 650 mg Q6H PRN PO PAIN LEVEL 1-3 OR FEVER Last administered on 08/18/16 06:08; Admin Dose 650 MG; Start 08/11/16 at 17:00 Morphine Sulfate (morphine) 2 mg Q4H PRN IV PAIN LEVEL 7-10; Start 08/11/16 at 17:00 Magnesium Hydroxide (Milk Of Mag) 30 ml DAILY PRN PO CONSTIPATION Last administered on 08/18/16 11:07; Admin Dose 30 ML; Start 08/11/16 at 17:00 Bisacodyl 10 mg 10 mg DAILY PRN [place] CONSTIPATION Last administered on 08/18/16 11:07; Admin Dose 10 MG; Start 08/11/16 at 17:00 Piperacillin Sod/ Tazobactam Sod (Zosyn 3.375gm/ 100 ml (Pmx)) 100 ml @ 200 mls /hr Q8 IVPB Last administered on 08/21/16 06:50; Admin Dose 200 MLS/HR; Start 08/11/16 at 22:00 IV Flush (NS 10 ml) 10 ml PRN PRN IV IV PROTOCOL; Start 08/12/16 at 18:30 Silver Sulfadiazine (Thermazene 1% 25 Gm) 1 applic DAILY TOP Last administered on 08/21/16 10:31; Admin Dose 1 APPLIC; Start 08/13/16 at 12:00 Mupirocin (Bactroban) 1 applic BID TOP Last administered on 08/21/16 10:31; Admin Dose 1 APPLIC; Start 08/13/16 at 21:00; Stop 08/27/16 at 20:59 Docusate Sodium 100 mg 100 mg Q12 PO Last administered on 08/21/16 10:14; Admin Dose 100 MG; Start 08/15/16 at 10:30 Vancomycin HCl/ Sodium Chloride (Vancocin/NS) 150 ml @ 75 mls/hr Q24H IVPB Last administered on 08/20/16 14:31; Admin Dose 75 MLS/HR; Start 08/20/16 at 14: 00 Amiodarone HCl (Cordarone) 200 mg DAILY PO Last administered on 08/21/16 10:14 ; Admin Dose 200 MG; Start 08/21/16 at 09:00 Metoprolol Tartrate (Lopressor) 12.5 mg BID PO Last administered on 08/21/16 10:15; Admin Dose 12.5 MG; Start 08/20/16 at 21:00 Bumetanide (Bumex) 1 mg DAILY PO Last administered on 08/21/16 10:13; Admin Dose 1 MG; Start 08/21/16 at 09:00 Miscellaneous Information 1 ONCE ONCE XX ; Start 08/21/16 at 13:00; Stop at 13:01 Magnesium Sulfate/ Dextrose (Magnesium Sulfate 1 Gm/D5W) 100 ml @ 100 mls/hr ONCE ONCE IVPB ; Start 08/21/16 at 13:00; Stop 08/21/16 at 13:59 Lisinopril (Zestril) 2.5 mg DAILY PO ; Start 08/21/16 at 12:30 RICHIE SWEET Aug 21, 2016 13:02
--- NOTE | 2016-08-21 13:57 | PN ---
DATE: 08/21/2016 SUBJECTIVE: Karoline Roach is more confused this morning, more altered. OBJECTIVE: VITAL SIGNS: Temperature 97, pulse 60, blood pressure 132/60, O2 saturation 97% on 3 liters. NECK: Supple. No JVD or lymphadenopathy. CARDIAC: S1, S2, no added sounds or murmurs. CHEST: Diminished air entry bilaterally. ABDOMEN: Soft, nontender. No guarding or rebound. EXTREMITIES: No cyanosis, clubbing, edema. NEUROLOGIC: Generalized weakness. LABORATORY DATA: Pending at time of this dictation. IMPRESSION AND PLAN: 1. Altered mental status. 2. Possible acute on chronic hypercapnia. 3. Bilateral infiltrates consistent with pneumonia. 4. Volume overload, ongoing vascular congestion. The patient will require: 1. Continued diuresis. 2. Stat blood gas to rule out worsening hypercapnia. 3. Consider IV Bumex instead of p.o. 4. DVT and GI prophylaxis. Dictated By: SIOMARA VALDES/LATISHA Conf#: [id number] DID#: [id number]
[2016-08-21] MEDS: VANCOMYCIN 750 MG in SOD CHLORIDE 0.9% 150 ML IVPB SCH (14:25)
--- NOTE | 2016-08-21 15:09 | RADRPT ---
PROCEDURE: XR Chest. CLINICAL INDICATION: Hypoxemia. TECHNIQUE: Single frontal view. COMPARISON: 08/20/2016. FINDINGS: The right arm PICC line and left-sided biventricular pacemaker/internal cardiac defibrillator remain in position. The heart is enlarged. There is bilateral pulmonary air space disease in the perihilar distribution and pulmonary edema, wo rse than seen previously. There are small bilateral pleural effusions. There is no pneumothorax. IMPRESSION: 1. Worse appearance of the lungs. 2. Small bilateral pleural effusions. 3. No other change from 08/20/2016. RPTAT: QQ .Oscar Jackson MD, MD Date Time Electronically viewed and signed by .Oscar Jackson MD, MD on 08/21/2016 15:09 .R/
[2016-08-21] MEDS: MONTELUKAST 10 MG TAB PO SCH (21:00)
[2016-08-21] MEDS: TAMSULOSIN (SR) 0.4 MG CAP PO SCH (21:43)
[2016-08-21] MEDS: BUMETANIDE 1 MG TAB PO SCH (21:43)
[2016-08-21] MEDS: ATORVASTATIN 20 MG TAB PO SCH (21:43)
[2016-08-22] VITALS (15 sets, daily range): BP systolic 109–131; BP diastolic 49–72; PULSE 60–122; RESP 18–21
--- NOTE | 2016-08-22 04:46 | RADRPT ---
PROCEDURE: XR Humerus. CLINICAL INDICATION: Possible retained portion of PICC line TECHNIQUE: AP and lateral views of the right humerus were performed. COMPARISON: None. FINDINGS: No fracture or dislocation is seen. No definite lytic or blastic bony lesion. The study is limited by portable technique and overlying leads and bed sheet material. No retained portion of PICC line i s seen over the right arm with visualized portion of the right chest and supraclavicular region. Th ere is a linear density overlying the lateral shoulder soft tissues on the AP view of the shoulder b ut this is not the area where the patient's PICC line was on the chest x-ray from yesterday. On the AP view of the entire humerus, there is a curved density which could represent a small catheter frag ment which is overlying the soft tissues lateral to the proximal humerus. On the chest x-ray, it kathie eared that the PICC line was more likely medial, however. Probable EKG lead overlies the medial low er arm soft tissues on the AP internally rotated view. IMPRESSION: Limited portable study with overlying mid sheet material and other lines. Although retained fragmen t is not extremely likely, repeat study in the department without overlying bed sheet material is re commended to completely exclude retained catheter fragment. RPTAT: [facility] Physician Layla Date Time Electronically viewed and signed by Mini Hart Physician on 08/22/2016 04:46 LE/
[2016-08-22] MEDS: LEVALBUTEROL (NEB) 0.63 MG/3 ML AMP HHN SCH ×5 (05:04→21:00)
[2016-08-22] MEDS: PIPER-TAZO 3.375 GM IV (PMX) 100 ML IVPB SCH ×3 (06:01→21:54)
[2016-08-22] MEDS: BUMETANIDE 1 MG TAB PO SCH ×2 (06:01→19:06)
[2016-08-22] MEDS: LEVALBUTEROL (NEB) 0.63 MG/3 ML AMP HHN PRN (06:48)
[2016-08-22 07:38] LABS: ADD SCAN DIFF NO
[2016-08-22 07:46] LABS: BASOPHILS % 0.4 % (0.0-2.0); EOSINOPHILS # 0.3 10^3/ul (0.0-0.5); HEMATOCRIT 30.6 % (42.0-52.0); HEMOGLOBIN 9.3 g/dl (14.0-18.0); LYMPHOCYTES # 3.3 10^3/ul (0.8-2.9); LYMPHOCYTES % 40.5 % (15.0-51.0); MEAN CORPUSCULAR HEMOGLOBIN 30.4 pg (29.0-33.0); MEAN CORPUSCULAR HGB CONC 30.4 g/dl (32.0-37.0); MEAN PLATELET VOLUME 10.2 fl (7.4-10.4); MONOCYTE # 0.9 10^3/ul (0.3-0.9); MONOCYTES % 10.9 % (0.0-11.0); NEUTROPHIL # 3.6 10^3/ul (1.6-7.5); NEUTROPHILS % 44.2 % (39.0-77.0); PLATELET COUNT 198 10^3/UL (140-415); RED BLOOD COUNT 3.06 10^6/ul (4.70-6.10); RED CELL DISTRIBUTION WIDTH 17.2 % (11.5-14.5); WHITE BLOOD COUNT 8.2 10^3/ul (4.8-10.8)
[2016-08-22 07:58] LABS: POTASSIUM 3.9 mmol/L (3.5-5.1)
[2016-08-22 08:01] LABS: CREATININE 1.18 mg/dl (0.61-1.24)
[2016-08-22 08:02] LABS: CALCIUM 8.1 mg/dl (8.4-10.2)
--- NOTE | 2016-08-22 09:41 | PN ---
Date/Time of Note Date/Time of Note DATE: 08/22/16 TIME: 09:33 Assessment/Plan VTE Prophylaxis VTE Prophylaxis Intervention: LMWH Lines/Catheters IV Catheter Type (from Nrsg): Saline Lock Urinary Cath still in place: Yes Reason Cath still needed: urinary retention Assessment/Plan Chief Complaint/Hosp Course COPD,home o2 dependent acute on chronic resp failure CHF hypercapnea met alkalosis PNA A flutter AMS,improved Cont current therapy awaiting SNF placement pulm and cards f/u will discuss with CM Problems: Subjective 24 Hr Interval Summary Free Text/Dictation no complaints. alert and oriented. Exam/Review of Systems Vital Signs Vitals Vital Signs Date Time Temp Pulse Resp B/P Pulse Ox O2 Delivery O2 Flow Rate FiO2 08/22/16 08:21 97.6 61 19 109/62 96 08/22/16 06:48 Nasal Cannula 3.0 08/21/16 19:10 40 Intake and Output 08/21/16 08/21/16 08/22/16 15:00 23:00 07:00 Intake Total 500 ml 500 ml Output Total 110 ml 1051 ml Balance 390 ml -551 ml Exam Neck: non-tender, supple Respiratory: diminished breath sounds Cardiovascular: regular rate and rhythm Gastrointestinal: bowel sounds, non-tender, soft Extremities: edema 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: nl mental status, nl speech, nl strength Results Result Diagram: 08/22/1645 08/22/16 0645 Results 24 hrs Laboratory Tests Test 08/21/16 12:45 08/21/16 13:08 08/22/16 06:45 08/22/16 08:38 Arterial Blood HCO3 39.7 H Arterial Blood Base Excess 11.4 H Arterial Blood Oxygen Saturation 97.7 [place]onte Test ACCEPTAB Arterial Blood Gas Puncture Site Right Radial Arterial Blood Carboxyhemoglobin 0.4 Arterial Blood Date Drawn 08/21/2016 1:02:35 PM Arterial Blood Methemoglobin 0.4 Arterial Blood pCO2 (Temp correct) 80.7 *H Arterial Blood pH (Temp corrected) 7.310 L Arterial Blood pO2 (Temp corrected) 110.3 H Blood Gas A-a O2 Differential 8.8 Blood Gas Critical Value Read Back DR GARZA Blood Gas Modality NASAL CANNULA Blood Gas Notified Time 08/21/2016 1:15:17 PM Blood Gas Notified Whom CANDICE Blood Gas Specimen Source Blood arterial Blood Gas Temperature 37.0 FiO2 30.0 Oxyhemoglobin Percent 96.9 Total Hemoglobin 9.2 L Vancomycin Level Trough 16.9 Anion Gap 11 Basophils # 0.0 Basophils % 0.4 Blood Urea Nitrogen 14 Calcium Level 8.1 L Carbon Dioxide Level 38 H Chloride Level 95 L Creatinine 1.18 Eosinophils # 0.3 Eosinophils % 3.0 Glucose Level 60 #L Hematocrit 30.6 L Hemoglobin 9.3 L Lymphocytes # 3.3 H Lymphocytes % 40.5 Magnesium Level 2.0 Mean Corpuscular Hemoglobin 30.4 Mean Corpuscular Hemoglobin Concent 30.4 L Mean Corpuscular Volume 100.0 Mean Platelet Volume 10.2 Monocytes # 0.9 Monocytes % 10.9 Neutrophils # 3.6 Neutrophils % 44.2 Nucleated Red Blood Cells # 0.0 Nucleated Red Blood Cells % 0.0 Phosphorus Level 3.0 Platelet Count 198 Potassium Level 3.9 Red Blood Count 3.06 L Red Cell Distribution Width 17.2 H Sodium Level 140 White Blood Count 8.2 # Bedside Glucose 68 L Test 08/22/16 09:20 Bedside Glucose 82 Medications Medications Current Medications Aspirin (Halfprin) 81 mg DAILY PO Last administered on 08/21/16 10:13; Admin Dose 81 MG; Start 08/12/16 at 09:00 Clopidogrel Bisulfate (plaVIX) 75 mg DAILY PO Last administered on 08/21/16 10 :14; Admin Dose 75 MG; Start 08/12/16 at 09:00 Ferrous Sulfate (Ferrous Sulfate (Ec)) 325 mg BID PO Last administered on 21:43; Admin Dose 325 MG; Start 08/11/16 at 21:00 Finasteride (Proscar) 5 mg DAILY PO Last administered on 08/21/16 10:13; Admin Dose 5 MG; Start 08/12/16 at 09:00 Fluticasone Propionate (Flonase 0.05% Nasal) 1 spray BID NASAL Last administered on 08/21/16 21:45; Admin Dose 1 SPRAY; Start 08/11/16 at 21:00 Gabapentin (Neurontin) 300 mg TID PO Last administered on 08/21/16 21:43; Admin Dose 300 MG; Start 08/11/16 at 21:00 Guaifenesin/ Dextromethorphan (Robitussin Dm Liquid Cup) 10 ml Q4H PRN PO COUGH Last administered on 08/16/16 16:30; Admin Dose 10 ML; Start 08/11/16 at 17:00 Lactobacillus Acidoph/Bulgaricus (Floranex) 1 tab TID PO Last administered on 21:43; Admin Dose 1 TAB; Start 08/11/16 at 21:00 Montelukast Sodium (Singulair) 10 mg HS PO Last administered on 08/20/16 22:07 ; Admin Dose 10 MG; Start 08/11/16 at 21:00 Multivitamins Therapeutic (Theragran) 1 tab DAILY PO Last administered on 10:13; Admin Dose 1 TAB; Start 08/12/16 at 09:00 Oxycodone/ Acetaminophen (Endocet (10/ 325)) 1 tab Q6 PRN PO PAIN Last administered on 08/15/16 19:04; Admin Dose 1 TAB; Start 08/11/16 at 17:00 Pantoprazole (Protonix Tab) 40 mg DAILY PO Last administered on 08/21/16 10:13 ; Admin Dose 40 MG; Start 08/12/16 at 09:00 Salmeterol Xinafoate/ Fluticasone (Advair 500/50 Diskus) 1 inh BID INH Last administered on 08/21/16 21:45; Admin Dose 1 INH; Start 08/11/16 at 21:00 Tamsulosin HCl (Flomax) 0.4 mg HS PO Last administered on 08/21/16 21:43; Admin Dose 0.4 MG; Start 08/11/16 at 21:00 Tiotropium [place] (Spiriva) 1 inh DAILY INH Last administered on 08/21/16 10: 13; Admin Dose 1 INH; Start 08/12/16 at 09:00 Guaifenesin/ Dextromethorphan (Mucinex Dm) 1 tab BID PO Last administered on 21:43; Admin Dose 1 TAB; Start 08/12/16 at 09:00 Fish Oil (Fish Oil) 1,000 mg DAILY PO Last administered on 08/21/16 10:14; Admin Dose 1,000 MG; Start 08/12/16 at 09:00 Atorvastatin Calcium (Lipitor) 20 mg DAILY@21 PO Last administered on 21:43; Admin Dose 20 MG; Start 08/11/16 at 21:58 Ondansetron HCl (Zofran Inj) 4 mg Q6H PRN IV NAUSEA AND/OR VOMITING Last administered on 08/20/16 15:59; Admin Dose 4 MG; Start 08/11/16 at 17:00 Nitroglycerin (Nitroglycerin (Sl Tab) 0.4 Mg) 1 tab Q5M PRN SL CHEST PAIN; Start 08/11/16 at 17:00 Acetaminophen (Tylenol Tab) 650 mg Q6H PRN PO PAIN LEVEL 1-3 OR FEVER Last administered on 08/18/16 06:08; Admin Dose 650 MG; Start 08/11/16 at 17:00 Morphine Sulfate (morphine) 2 mg Q4H PRN IV PAIN LEVEL 7-10; Start 08/11/16 at 17:00 Magnesium Hydroxide (Milk Of Mag) 30 ml DAILY PRN PO CONSTIPATION Last administered on 08/18/16 11:07; Admin Dose 30 ML; Start 08/11/16 at 17:00 Bisacodyl 10 mg 10 mg DAILY PRN [place] CONSTIPATION Last administered on 08/18/16 11:07; Admin Dose 10 MG; Start 08/11/16 at 17:00 Piperacillin Sod/ Tazobactam Sod (Zosyn 3.375gm/ 100 ml (Pmx)) 100 ml @ 200 mls /hr Q8 IVPB Last administered on 08/22/16 06:01; Admin Dose 200 MLS/HR; Start 08/11/16 at 22:00 IV Flush (NS 10 ml) 10 ml PRN PRN IV IV PROTOCOL; Start 08/12/16 at 18:30 Silver Sulfadiazine (Thermazene 1% 25 Gm) 1 applic DAILY TOP Last administered on 08/21/16 10:31; Admin Dose 1 APPLIC; Start 08/13/16 at 12:00 Mupirocin (Bactroban) 1 applic BID TOP Last administered on 08/21/16 21:45; Admin Dose 1 APPLIC; Start 08/13/16 at 21:00; Stop 08/27/16 at 20:59 Docusate Sodium (Colace) 100 mg Q12 PO Last administered on 08/21/16 21:43; Admin Dose 100 MG; Start 08/15/16 at 10:30 Amiodarone HCl (Cordarone) 200 mg DAILY PO Last administered on 08/21/16 10:14 ; Admin Dose 200 MG; Start 08/21/16 at 09:00 Metoprolol Tartrate (Lopressor) 12.5 mg BID PO Last administered on 08/21/16 21:44; Admin Dose 12.5 MG; Start 08/20/16 at 21:00 Lisinopril 2.5 mg 2.5 mg DAILY PO Last administered on 08/21/16 13:03; Admin Dose 2.5 MG; Start 08/21/16 at 12:30 Vancomycin HCl (Vancocin) 100 ml @ 100 mls/hr Q24H IVPB ; Start 08/22/16 at 15: 00 YOLANDA LEIGH MD Aug 22, 2016 09:41
[2016-08-22] MEDS: FERROUS SULFATE (EC) 325 MG TAB PO SCH ×2 (10:52→20:18)
[2016-08-22] MEDS: MUPIROCIN 2% 22 GM OINT TOP SCH ×2 (10:52→20:19)
[2016-08-22] MEDS: CLOPIDOGREL 75 MG TAB PO SCH (10:53)
[2016-08-22] MEDS: GUAIFENESIN/DM (SR) TAB PO SCH ×2 (10:53→20:17)
[2016-08-22] MEDS: MULTIVITAMINS THERAPEUTIC TAB PO SCH (10:53)
[2016-08-22] MEDS: DOCUSATE SODIUM 100 MG CAP PO SCH ×2 (10:53→20:18)
[2016-08-22] MEDS: PANTOPRAZOLE (EC) 40 MG TAB PO SCH (10:53)
[2016-08-22] MEDS: GABAPENTIN 300 MG CAP PO SCH ×3 (10:53→20:18)
[2016-08-22] MEDS: FLUTICASONE 0.05% 16 GM NAS SPRAY NASAL SCH ×2 (10:53→20:19)
[2016-08-22] MEDS: FISH OIL 1,000 MG CAP PO SCH (10:53)
[2016-08-22] MEDS: SALMETEROL/FLUTICASONE 500/50 INHA INH SCH ×2 (10:53→20:19)
[2016-08-22] MEDS: SILVER SULFADIAZINE 1% 25 GM CR TOP SCH (10:53)
[2016-08-22] MEDS: FINASTERIDE 5 MG TAB PO SCH (10:53)
[2016-08-22] MEDS: LACTOBACILLUS CHEW TAB PO SCH ×3 (10:54→20:18)
[2016-08-22] MEDS: ASPIRIN (EC) 81 MG TAB PO SCH (10:54)
[2016-08-22] MEDS: LISINOPRIL 5 MG TAB PO SCH (10:54)
[2016-08-22] MEDS: AMIODARONE 200 MG TAB PO SCH (10:54)
[2016-08-22] MEDS: TIOTROPIUM 18 MCG CAPSULE INHA DEV INH SCH (10:54)
[2016-08-22] MEDS: METOPROLOL 25 MG TAB PO SCH ×2 (10:55→20:17)
--- NOTE | 2016-08-22 14:09 | CONS ---
Date/Time of Note Date/Time of Note DATE: 08/22/16 TIME: 14:07 Assessment/Plan Assessment/Plan Additional Assessment/Plan Assessment and recommendations; 1. Patient admitted with hypercapnic respiratory failure with clinical improvement. 2. CHF. 3. Bilateral pneumonia. Continue current treatment. Obtain follow-up chest x-ray tomorrow morning as well as a blood gas. Prognosis is guarded. Consultation Date/Type/Reason Admit Date/Time Aug 11, 2016 at 16:21 Initial Consult Date 08/14/16 Type of Consultation: Pulmonary 24 HR Interval Summary Free Text/Dictation Patient condition stable. Patient is much more awake and alert. Denies any shortness of breath, chest pain. Any cough or wheezing. General exam; elderly male, currently in no distress awake and alert. Exam/Review of Systems Vital Signs Vitals Vital Signs Date Time Temp Pulse Resp B/P Pulse Ox O2 Delivery O2 Flow Rate FiO2 08/22/16 13:29 60 08/22/16 12:31 20 96 Nasal Cannula 3.0 08/22/16 12:26 97.7 115/55 08/21/16 19:10 40 Intake and Output 08/21/16 08/21/16 08/22/16 15:00 23:00 07:00 Intake Total 500 ml 500 ml Output Total 110 ml 1051 ml Balance 390 ml -551 ml Exam H EENT examination: Supple neck, no JVD. No lymphadenopathy. Midline trachea. No thyromegaly. Chest examination; diminished but clear breath sounds bilaterally. S1-S2 audible, no murmurs. Regular rhythm. Abdomen examination; soft, nontender. No organomegaly. Bowel sounds audible. Extremity exam; trace generalized edema. Patient does not multiple ecchymosis involving both upper extremities. PROJECT MGR exam; no focal deficit. Results Result Diagram: 08/22/16 0645 08/22/16 0645 Results 24 hrs Laboratory Tests Test 08/22/16 06:45 08/22/16 08:38 08/22/16 09:20 08/22/16 11:53 Anion Gap 11 Basophils # 0.0 Basophils % 0.4 Blood Urea Nitrogen 14 Calcium Level 8.1 L Carbon Dioxide Level 38 H Chloride Level 95 L Creatinine 1.18 Eosinophils # 0.3 Eosinophils % 3.0 Glucose Level 60 #L Hematocrit 30.6 L Hemoglobin 9.3 L Lymphocytes # 3.3 H Lymphocytes % 40.5 Magnesium Level 2.0 Mean Corpuscular Hemoglobin 30.4 Mean Corpuscular Hemoglobin Concent 30.4 L Mean Corpuscular Volume 100.0 Mean Platelet Volume 10.2 Monocytes # 0.9 Monocytes % 10.9 Neutrophils # 3.6 Neutrophils % 44.2 Nucleated Red Blood Cells # 0.0 Nucleated Red Blood Cells % 0.0 Phosphorus Level 3.0 Platelet Count 198 Potassium Level 3.9 Red Blood Count 3.06 L Red Cell Distribution Width 17.2 H Sodium Level 140 White Blood Count 8.2 # Bedside Glucose 68 L 82 98 Medications Medications Current Medications Aspirin (Halfprin) 81 mg DAILY PO Last administered on 08/22/16 10:54; Admin Dose 81 MG; Start 08/12/16 at 09:00 Clopidogrel Bisulfate (plaVIX) 75 mg DAILY PO Last administered on 08/22/16 10 :53; Admin Dose 75 MG; Start 08/12/16 at 09:00 Ferrous Sulfate (Ferrous Sulfate (Ec)) 325 mg BID PO Last administered on 10:52; Admin Dose 325 MG; Start 08/11/16 at 21:00 Finasteride (Proscar) 5 mg DAILY PO Last administered on 08/22/16 10:53; Admin Dose 5 MG; Start 08/12/16 at 09:00 Fluticasone Propionate (Flonase 0.05% Nasal) 1 spray BID NASAL Last administered on 08/22/16 10:53; Admin Dose 1 SPRAY; Start 08/11/16 at 21:00 Gabapentin (Neurontin) 300 mg TID PO Last administered on 08/22/16 10:53; Admin Dose 300 MG; Start 08/11/16 at 21:00 Guaifenesin/ Dextromethorphan (Robitussin Dm Liquid Cup) 10 ml Q4H PRN PO COUGH Last administered on 08/16/16 16:30; Admin Dose 10 ML; Start 08/11/16 at 17:00 Lactobacillus Acidoph/Bulgaricus (Floranex) 1 tab TID PO Last administered on 10:54; Admin Dose 1 TAB; Start 08/11/16 at 21:00 Montelukast Sodium (Singulair) 10 mg HS PO Last administered on 08/20/16 22:07 ; Admin Dose 10 MG; Start 08/11/16 at 21:00 Multivitamins Therapeutic (Theragran) 1 tab DAILY PO Last administered on 10:53; Admin Dose 1 TAB; Start 08/12/16 at 09:00 Oxycodone/ Acetaminophen (Endocet (10/ 325)) 1 tab Q6 PRN PO PAIN Last administered on 08/15/16 19:04; Admin Dose 1 TAB; Start 08/11/16 at 17:00 Pantoprazole (Protonix Tab) 40 mg DAILY PO Last administered on 08/22/16 10:53 ; Admin Dose 40 MG; Start 08/12/16 at 09:00 Salmeterol Xinafoate/ Fluticasone (Advair 500/50 Diskus) 1 inh BID INH Last administered on 08/22/16 10:53; Admin Dose 1 INH; Start 08/11/16 at 21:00 Tamsulosin HCl (Flomax) 0.4 mg HS PO Last administered on 08/21/16 21:43; Admin Dose 0.4 MG; Start 08/11/16 at 21:00 Tiotropium [place] (Spiriva) 1 inh DAILY INH Last administered on 08/22/16 10: 54; Admin Dose 1 INH; Start 08/12/16 at 09:00 Guaifenesin/ Dextromethorphan (Mucinex Dm) 1 tab BID PO Last administered on 10:53; Admin Dose 1 TAB; Start 08/12/16 at 09:00 Fish Oil (Fish Oil) 1,000 mg DAILY PO Last administered on 08/22/16 10:53; Admin Dose 1,000 MG; Start 08/12/16 at 09:00 Atorvastatin Calcium (Lipitor) 20 mg DAILY@21 PO Last administered on 21:43; Admin Dose 20 MG; Start 08/11/16 at 21:58 Ondansetron HCl (Zofran Inj) 4 mg Q6H PRN IV NAUSEA AND/OR VOMITING Last administered on 08/20/16 15:59; Admin Dose 4 MG; Start 08/11/16 at 17:00 Nitroglycerin (Nitroglycerin (Sl Tab) 0.4 Mg) 1 tab Q5M PRN SL CHEST PAIN; Start 08/11/16 at 17:00 Acetaminophen (Tylenol Tab) 650 mg Q6H PRN PO PAIN LEVEL 1-3 OR FEVER Last administered on 08/18/16 06:08; Admin Dose 650 MG; Start 08/11/16 at 17:00 Morphine Sulfate (morphine) 2 mg Q4H PRN IV PAIN LEVEL 7-10; Start 08/11/16 at 17:00 Magnesium Hydroxide (Milk Of Mag) 30 ml DAILY PRN PO CONSTIPATION Last administered on 08/18/16 11:07; Admin Dose 30 ML; Start 08/11/16 at 17:00 Bisacodyl 10 mg 10 mg DAILY PRN [place] CONSTIPATION Last administered on 08/18/16 11:07; Admin Dose 10 MG; Start 08/11/16 at 17:00 Piperacillin Sod/ Tazobactam Sod (Zosyn 3.375gm/ 100 ml (Pmx)) 100 ml @ 200 mls /hr Q8 IVPB Last administered on 08/22/16 06:01; Admin Dose 200 MLS/HR; Start 08/11/16 at 22:00 IV Flush (NS 10 ml) 10 ml PRN PRN IV IV PROTOCOL; Start 08/12/16 at 18:30 Silver Sulfadiazine (Thermazene 1% 25 Gm) 1 applic DAILY TOP Last administered on 08/22/16 10:53; Admin Dose 1 APPLIC; Start 08/13/16 at 12:00 Mupirocin (Bactroban) 1 applic BID TOP Last administered on 08/22/16 10:52; Admin Dose 1 APPLIC; Start 08/13/16 at 21:00; Stop 08/27/16 at 20:59 Docusate Sodium (Colace) 100 mg Q12 PO Last administered on 08/22/16 10:53; Admin Dose 100 MG; Start 08/15/16 at 10:30 Amiodarone HCl (Cordarone) 200 mg DAILY PO Last administered on 08/22/16 10:54 ; Admin Dose 200 MG; Start 08/21/16 at 09:00 Metoprolol Tartrate (Lopressor) 12.5 mg BID PO Last administered on 08/22/16 10:55; Admin Dose 12.5 MG; Start 08/20/16 at 21:00 Lisinopril (Zestril) 2.5 mg DAILY PO Last administered on 08/22/16t 10:54; Admin Dose 2.5 MG; Start 08/21/16 at 12:30 Enoxaparin Sodium 30 mg 30 mg DAILY SC ; Start 08/22/16 at 10:00 Vancomycin HCl/ Sodium Chloride (Vancocin/NS) 150 ml @ 75 mls/hr Q36H IVPB ; Start 08/23/16 at 03:00 ERIN HERNANDEZ Aug 22, 2016 14:09
[2016-08-22] MEDS: ENOXAPARIN 30 MG/0.3 ML SYG SC SCH (14:42)
[2016-08-22] MEDS ORDERED: VANCOMYCIN 500MG/NS (PMX) 100 ML IVPB SCH (15:00)
--- NOTE | 2016-08-22 15:08 | PN ---
DATE: 08/22/2016 CARDIOLOGY FOLLOWUP SUBJECTIVE: Discussed with the staff. Rhythm strip reviewed, patient in AV paced rhythm. MEDICATIONS: Reviewed. PHYSICAL EXAMINATION: VITAL SIGNS: Temperature 97.7, heart rate of 60 and paced, blood pressure 115/35, respiration rate of 20, saturating 96%. HEENT: Normocephalic, atraumatic. Thin gentleman. Pupils are equal. CARDIOVASCULAR: Regular rate and rhythm. PULMONARY: No wheezes. GASTROINTESTINAL: Soft. EXTREMITIES: Trivial edema. NEUROLOGIC: Awake and alert. LABORATORY: Sodium 140, potassium 3.9, BUN of 14, creatinine 1.18, glucose of 60. ASSESSMENT AND PLAN: 1. Status post sepsis. 2. Congestive heart failure. 3. Paroxysmal atrial fibrillation and flutter. 4. History of heart block, status post biventricular ICD placement, history of cardiomyopathy. 5. Aortic stenosis, status post aortic valve replacement, coronary artery disease. RECOMMENDATIONS: Antibiotic as per internal medicine. We will continue with CLARIBEL inhibitor as sabrina ated. Amiodarone will be continued. Aspirin and Plavix will be continued. Dictated By: HUMBERTO MCGILL/LATISHA Conf#: [id number] DID#: [id number]
[2016-08-22] MEDS: ACETAMINOPHEN 325 MG TAB PO PRN (20:17)
[2016-08-22] MEDS: TAMSULOSIN (SR) 0.4 MG CAP PO SCH (20:18)
[2016-08-22] MEDS: MONTELUKAST 10 MG TAB PO SCH (20:18)
[2016-08-22] MEDS: ATORVASTATIN 20 MG TAB PO SCH (20:18)
[2016-08-23] VITALS (9 sets, daily range): BP systolic 102–119; BP diastolic 53–71; PULSE 60–63; RESP 18–19
[2016-08-23] MEDS: LEVALBUTEROL (NEB) 0.63 MG/3 ML AMP HHN SCH ×4 (01:12→13:25)
[2016-08-23] MEDS ORDERED: VANCOMYCIN 750 MG in SOD CHLORIDE 0.9% 150 ML IVPB SCH (03:00)
[2016-08-23] MEDS: PIPER-TAZO 3.375 GM IV (PMX) 100 ML IVPB SCH ×2 (06:23→14:00)
[2016-08-23] MEDS: BUMETANIDE 1 MG TAB PO SCH (06:23)
[2016-08-23] MEDS ORDERED: DEXTROSE 50% 50 ML SYRINGE ONE (08:44)
[2016-08-23 09:40] LABS: ADD SCAN DIFF NO
[2016-08-23 09:42] LABS: BASOPHILS % 0.5 % (0.0-2.0); EOSINOPHILS # 0.2 10^3/ul (0.0-0.5); HEMATOCRIT 30.1 % (42.0-52.0); LYMPHOCYTES # 3.3 10^3/ul (0.8-2.9); LYMPHOCYTES % 42.7 % (15.0-51.0); MEAN CORPUSCULAR HEMOGLOBIN 30.1 pg (29.0-33.0); MEAN CORPUSCULAR HGB CONC 29.9 g/dl (32.0-37.0); MEAN CORPUSCULAR VOLUME 100.7 fl (82.0-101.0); MEAN PLATELET VOLUME 9.7 fl (7.4-10.4); MONOCYTE # 0.8 10^3/ul (0.3-0.9); MONOCYTES % 10.5 % (0.0-11.0); NEUTROPHIL # 3.2 10^3/ul (1.6-7.5); NEUTROPHILS % 42.4 % (39.0-77.0); PLATELET COUNT 177 10^3/UL (140-415); RED BLOOD COUNT 2.99 10^6/ul (4.70-6.10); WHITE BLOOD COUNT 7.6 10^3/ul (4.8-10.8)
[2016-08-23 09:55] LABS: POTASSIUM 3.3 mmol/L (3.5-5.1)
[2016-08-23 09:58] LABS: CALCIUM 7.7 mg/dl (8.4-10.2); CREATININE 1.38 mg/dl (0.61-1.24)
[2016-08-23] MEDS: GUAIFENESIN/DM (SR) TAB PO SCH (11:28)
[2016-08-23] MEDS: FISH OIL 1,000 MG CAP PO SCH (11:28)
[2016-08-23] MEDS: GABAPENTIN 300 MG CAP PO SCH ×2 (11:28→13:00)
[2016-08-23] MEDS: FINASTERIDE 5 MG TAB PO SCH (11:28)
[2016-08-23] MEDS: MULTIVITAMINS THERAPEUTIC TAB PO SCH (11:28)
[2016-08-23] MEDS: TIOTROPIUM 18 MCG CAPSULE INHA DEV INH SCH (11:28)
[2016-08-23] MEDS: DOCUSATE SODIUM 100 MG CAP PO SCH (11:29)
[2016-08-23] MEDS: PANTOPRAZOLE (EC) 40 MG TAB PO SCH (11:29)
[2016-08-23] MEDS: AMIODARONE 200 MG TAB PO SCH (11:29)
[2016-08-23] MEDS: LACTOBACILLUS CHEW TAB PO SCH ×2 (11:29→13:00)
[2016-08-23] MEDS: METOPROLOL 25 MG TAB PO SCH (11:29)
[2016-08-23] MEDS: FERROUS SULFATE (EC) 325 MG TAB PO SCH (11:29)
[2016-08-23] MEDS: CLOPIDOGREL 75 MG TAB PO SCH (11:29)
[2016-08-23] MEDS: ASPIRIN (EC) 81 MG TAB PO SCH (11:29)
[2016-08-23] MEDS: LISINOPRIL 5 MG TAB PO SCH (11:30)
[2016-08-23] MEDS: MUPIROCIN 2% 22 GM OINT TOP SCH (11:31)
[2016-08-23] MEDS: FLUTICASONE 0.05% 16 GM NAS SPRAY NASAL SCH (11:31)
[2016-08-23] MEDS: SILVER SULFADIAZINE 1% 25 GM CR TOP SCH (11:31)
[2016-08-23] MEDS: SALMETEROL/FLUTICASONE 500/50 INHA INH SCH (11:31)
--- NOTE | 2016-08-23 11:42 | RADRPT ---
PROCEDURE: XR Chest. CLINICAL INDICATION: Shortness of breath. TECHNIQUE: Single frontal view. COMPARISON: 08/21/2016. FINDINGS: The right arm PICC line has been removed. Pulmonary edema is slightly improved. There is mild atel ectasis at the lung bases. The heart is enlarged. There is calcification in the aorta consistent with atherosclerosis. There is a biventricular permanent pacemaker/internal cardiac defibrillator. There are small bilateral pleural effusions. There is no pneumothorax. IMPRESSION: 1. Slightly improved pulmonary edema. 2. Right arm PICC line removed. 3. No other change from 08/21/2016. RPTAT: QQ .Oscar Jackson MD, MD Date Time Electronically viewed and signed by .Oscar Jackson MD, MD on 08/23/2016 11:41 .R/
[2016-08-23] MEDS: ENOXAPARIN 30 MG/0.3 ML SYG SC SCH (11:53)
--- NOTE | 2016-08-23 16:44 | DS ---
DATE OF ADMISSION: 08/11/2016 DATE OF DISCHARGE: 08/23/2016 DISCHARGE DIAGNOSES: 1. Congestive heart failure exacerbation. 2. Volume overload. 3. Coronary artery disease. 4. Ischemic cardiomyopathy. 5. Status post transcatheter aortic valve replacement. 6. Status post ICD placement. 7. Acute respiratory failure. 8. Chronic hypoxemia. 9. Chronic obstructive pulmonary disease. 10. Chronic kidney disease. 11. Urinary retention. 12. Chronic anemia. 13. Hypertension. 14. Hypothyroidism. 15. Temporal arteritis. HOSPITAL COURSE: An 81-year-old male with multiple medical problems, presented with acute respirato ry failure. The patient was found to be in congestive heart failure exacerbation. He was aggressiv soham diuresed. Patient has underlying coronary artery disease and ischemic cardiomyopathy. He under went transcatheter aortic valve replacement and biventricular pacer placement. He also has underlyi ng COPD with chronic hypoxemia. Patient developed altered mental status during the hospitalization and was found to have hypercarbia. This slowly improved. I had a long discussion with his partner. Patient apparently carries a DNR code status. I recommen ded hospice evaluation. Patient is in stable condition for transition to custodial facility. Dictated By: SHAHZAD ADAMS MD MR/NTS Conf#: [id number] DID#: [id number]
--- NOTE | 2016-08-25 06:58 | PN ---
DATE: 08/23/2016 CARDIOLOGY FOLLOWUP SUBJECTIVE: Discussed with the staff. The patient remains in paced rhythm sinus at this point. Co mplains of just weakness. MEDICATIONS: Reviewed. PHYSICAL EXAMINATION: VITAL SIGNS: Temperature 98, heart rate of 60, blood pressure 103/63, respiratory rate of 19. HEENT: Normocephalic, atraumatic. Pupils are equal. CARDIOVASCULAR: Regular rate and rhythm. PULMONARY: No wheezes, mild rhonchi, diffuse. GASTROINTESTINAL: Soft. EXTREMITIES: NEUROLOGIC: Awake. LABORATORY: Glucose 52 this morning. ASSESSMENT AND PLAN: 1. Pneumonia. 2. Status post sepsis. 3. Congestive heart failure. 4. Severe chronic obstructive pulmonary disease. 5. History of heart block. 6. Paroxysmal atrial flutter, status post biventricular ICD placement. 7. History of cardiomyopathy, ischemic and nonischemic. 8. Aortic stenosis, aortic valve replacement. RECOMMENDATIONS: We will continue with the current cardiac care. Antibiotic as per internal medici ne. Amiodarone will be continued. Beta mayela as tolerated. Aspirin will be continued. Plavix w ill be continued. Dr. Peralta will resume the care tomorrow. Dictated By: HUMBERTO BAXTER MD AV/NTS Conf#: [id number] DID#: [id number] CC: YOLANDA LEIGH MD;*EndCC*
== END 2016-08-23 16:08 | DRG 291 ==
LOC: E/R 13:37 → ICU 16:21 → MS4 08-17 12:20
PROVIDERS: ADMIT Internal Medicine; ATTEND Internal Medicine
PROC: 30233N1 Transfusion of Nonautologous Red Blood Cells into Peripheral Vein, Percutaneous Approach (ICD-10-PCS; 2016-08-13)
PROC: 02HV33Z Insertion of Infusion Device into Superior Vena Cava, Percutaneous Approach (ICD-10-PCS; principal; 2016-08-21)
DX: I13.0 Hypertensive heart and chronic kidney disease with heart failure and stage 1 through stage 4 chronic kidney disease, or unspecified chronic kidney disease (principal); I50.43 Acute on chronic combined systolic (congestive) and diastolic (congestive) heart failure; J96.22 Acute and chronic respiratory failure with hypercapnia; N17.9 Acute kidney failure, unspecified; J18.9 Pneumonia, unspecified organism; A41.9 Sepsis, unspecified organism; I95.9 Hypotension, unspecified; I48.92 Unspecified atrial flutter; M31.6 Other giant cell arteritis; D62 Acute posthemorrhagic anemia; L03.115 Cellulitis of right lower limb; N39.0 Urinary tract infection, site not specified; L03.116 Cellulitis of left lower limb; T83.511A Infection and inflammatory reaction due to indwelling urethral catheter, initial encounter; I25.2 Old myocardial infarction; Z95.0 Presence of cardiac pacemaker; Z95.2 Presence of prosthetic heart valve; Z79.01 Long term (current) use of anticoagulants; J44.9 Chronic obstructive pulmonary disease, unspecified; I25.5 Ischemic cardiomyopathy; E78.5 Hyperlipidemia, unspecified; I44.7 Left bundle-branch block, unspecified; E83.42 Hypomagnesemia; Z86.73 Personal history of transient ischemic attack (TIA), and cerebral infarction without residual deficits; Z95.810 Presence of automatic (implantable) cardiac defibrillator; E03.9 Hypothyroidism, unspecified; B96.5 Pseudomonas (aeruginosa) (mallei) (pseudomallei) as the cause of diseases classified elsewhere; Z99.81 Dependence on supplemental oxygen; Z95.5 Presence of coronary angioplasty implant and graft; N40.1 Benign prostatic hyperplasia with lower urinary tract symptoms; R33.8 Other retention of urine; R09.02 Hypoxemia; N18.9 Chronic kidney disease, unspecified; R41.82 Altered mental status, unspecified
CPT/HCPCS: 36415; 36430; 36569; 36600; 71010; 76937; 80048; 80053; 80202; 81001; 81003; 82550; 82553; 82803; 82962; 83605; 83735; 84100; 84134; 84484; 85014; 85018; 85025; 85610; 85730; 86850; 86900; 86901; 86920; 87040; 87045; 87081; 87086; 87400; 93005; 93970; 94640; 94660; 94664; 96361; 96374; 96375; 96376; 97110; 97162; 97530; J1120; J1940; C1769; J0282; J1650; J2405; J2543; J3370; J3475; J7030; J7040; P9016